=== PATIENT | male | born 1945 | race Caucasian/White ===

== ENCOUNTER 2023-04-12 10:33 | Inpatient (IN) | payer MEDICARE, SELFPAY ==
[2023-04-12] VITALS (13 sets, daily range): BP systolic 74–119; BP diastolic 49–67; PULSE 65–90; RESP 12–27; TEMP 36.2–37.2; O2SAT 88–97; BMI 30.9; BMI 29.9
--- NOTE | 2023-04-12 10:43 | ED.RN ---
PT HAS NUMEROUS BRUISED AREAS TO BACK AND SHOULDER THAT APPEAR TO BE AT DIFFERENT HEALING STAGES. BILAT ARMS, KNEES, FEET WITH DISCOLORING, REDNESS, SOME ABRASIONS.
--- NOTE | 2023-04-12 10:44 | EDS_ITS ---
HPI History of Present Illness Chief Complaint: Weakness [facility] Medical History (Updated 04/12/23 @ 14:[address] William Padilla, DO) CVA (cerebral vascular accident) Dementia High cholesterol Hypertension Kidney calculi Allergy/AdvReac Type Severity Reaction Status Date / Time No Known Allergies Allergy Verified 04/12/23 11:22 Surgical History (Updated 04/12/23 @ 14:54 by Lolis Meehan) History of heart artery stent Social History Smoking Status: Never smoker EXAM Physical Exam Const Vital Signs: 04/12/23 10:35 04/12/23 10:48 04/12/23 10:49 Temperature 99 F Temperature Source Temporal Pulse Rate 89 86 Respiratory Rate 12 26 H Respiratory Effort Normal Non-Labored Respiratory Pattern Normal Blood Pressure 74/49 L 90/50 L Blood Pressure Mean 57 63 Pulse Ox 92 93 Oxygen Delivery Method Room Air Room Air Oxygen Flow Rate (L/min) 04/12/23 11:00 04/12/23 11:24 04/12/23 11:55 Temperature Temperature Source Pulse Rate 90 73 69 Respiratory Rate 27 H 24 H 20 H Respiratory Effort Respiratory Pattern Blood Pressure 80/59 L 93/57 L 119/61 Blood Pressure Mean 66 69 80 Pulse Ox 94 88 92 Oxygen Delivery Method Room Air Room Air Nasal Cannula Oxygen Flow Rate (L/min) 2 04/12/23 12:07 04/12/23 12:51 Temperature Temperature Source Pulse Rate 66 69 Respiratory Rate 23 H 22 H Respiratory Effort Respiratory Pattern Blood Pressure 119/61 110/67 Blood Pressure Mean 80 81 Pulse Ox 95 92 Oxygen Delivery Method Nasal Cannula Oxygen Flow Rate (L/min) 2 MDM MDM MDM Narrative Medical decision making narrative: HISTORY OF PRESENT ILLNESS: 78-year-old female presents with diffuse weakness, flulike symptoms. States was seen at outside ED for similar symptoms. States patient been so weak that they have not been able to get up off the floor. Notes patient was covered in stool this morning. Patient also endorses severe back pain. Unable to provide a reliabe hx of how he fell to the ground or how long he was down. Patient denies any saddle anesthesia, urinary retention, bowel or bladder incontinence, lower extremity weakness, fever or IV drug use, no recent spinal manipulation or surgery, no recent urinary catheterization. REVIEW OF SYSTEMS: Pertinent positives: Weakness, hypotension, back pain Pertinent negatives: Cough, fever, chest pain, trouble urinating PHYSICAL EXAM: Nursing triage notes reviewed, Vital signs reviewed Constitutional: please see mdm HENT: Profoundly dry oral mucosa Eyes: Pupils equal round and reactive to light, Extraocular muscles intact Neck: No stridor, no JVD, full neck ROM Lungs: Clear to auscultation, No wheezing or rales. No increased work of breathing, no conversational dyspnea, no accessory muscle use, no nasal flaring. No respiratory distress noted Heart: Regular rate and rhythm, No murmurs, No rubs and No gallops, 2+ distal pulses (radial, femoral, posterior tibial) in all extremities Abdomen: Soft, there is no tenderness, rigidity, rebound or guarding, no obvious peritoneal signs, no palpable pulsatile abdominal masses, no auscultated abdominal bruit : No CVAT Extremities: No edema Back: Diffuse tenderness to palpation, some bruising over the left lateral lumbar region, no step-offs or deformities Neuro: Patient was alert, oriented x 3, moves all 4 extremities, and sensation all 4 extremities, no lateralizing findings Skin: No rash or lesions noted MEDICAL DECISION MAKING: Chief Complaint: Weakness, hypotension External records reviewed: No prior records noted in our system or in clinisync Factors affecting care: Unknown per the patient high cholesterol, hypertension states he is on a blood thinner although he cannot detail why Social determinants of health: Elderly History obtained from others: EMS Consults: Internal medicine [facility] Narrative: Patient was initially hypotensive otherwise hemodynamically stable, afebrile and nontoxic-appearing I considered the following differential diagnosis: Rhabdomyolysis, dehydration, acute kidney injury, sepsis, traumatic injury of the head, cervical spine, thoracic or lumbar spine, electrolyte disturbance, acute kidney injury, infectious or metabolic encephalopathy I obtained a broad lab and imaging workup to further elucidate etiology of patient's complaints. Hypotension was treated 1 L normal saline. He was given fentanyl for pain given its relative hemodynamic stability. ALL IMAGES (IF OBTAINED) HAVE BEEN PERSONALLY REVIEWED AND INTERPRETED BY MYSELF. EKG with normal sinus rhythm, left axis deviation, normal intervals, no STEMI CBC with no leukocytosis, there is mild thrombocytopenia but no significant anemia noted Chemistry panel shows evidence of significant dehydration which is consistent with his clinical exam, acute kidney injury, Initial lactate elevated concerning for endorgan hypoperfusion LFTs elevated alcohol use pattern with AST being approximately double ALT Troponin grossly elevated concerning for myocardial ischemia suspected type II demand ischemia given lack of chest pain, EKG changes Influenza A positive I have personally reviewed the patient's chest x-ray. Chest x-ray is unremarkable for pulmonary edema, pneumothorax, pneumonia or focal cardiopulmonary abnormality. CK elevated consistent rhabdomyolysis CT scan of the head, cervical spine, thoracic and lumbar spine are negative for acute traumatic injury The synthesis of the patient's history, physical exam, labs images suggest profound dehydration likely secondary to influenza A infection leading to weakness and fall resulting in and subsequent rhabdomyolysis and acute renal failure. Patient will need inpatient admission for further hydration, pain control and serial cardiac biomarkers. The patient and/or family, caregivers express understanding. The patient and/or family, caregivers agrees with the plan. Shared decision making: I will have a discussion with the patient and or visitors regarding risk/benefits of further testing or admission. They will be made aware of of the risk/benefits inherent in this decision they will be given the opportunity to voice understanding. Total critical care time today provided was at least 0 minutes. This excludes separately billable procedures. Critical care time (if documented) is secondary to the patient having high probability of clinically significant/life threatening deterioration in the patient's condition which required my urgent intervention. Impression: 1. Diffuse weakness 2. Hypotension 3. Dehydration 4. Thrombocytopenia 5. NSTEMI 6. Rhabdomyolysis 7. Acute renal failure Dispo: admit Lab Data Labs: Laboratory Results - last 24 hr 04/12/23 04/12/23 04/12/23 11:00 11:00 11:00 WBC 8.8 RBC 4.08 L Hgb 13.6 Hct 41.1 MCV 100.7 H MCH 33.3 H MCHC 33.1 RDW Std Deviation 51.8 H RDW Coeff of Ese 14.1 Plt Count 123 L MPV 9.8 Immature Gran % (Auto) 0.300 Neut % (Auto) 84.0 H Lymph % (Auto) 6.[address] [place] % (Auto) 9.4 Eos % (Auto) 0.0 Baso % (Auto) 0.1 Absolute Neuts (auto) 7.4 Absolute Lymphs (auto) 0.54 L Nucleated RBC % 0 Differential Comment COMMENT PT Cancelled 15.0 H INR Cancelled 1.2 APTT Cancelled Sodium Potassium Chloride Carbon Dioxide Anion Gap BUN Creatinine Estim Creat Clear Calc Est GFR (MDRD) Af Amer Est GFR (MDRD) Non-Af BUN/Creatinine Ratio Glucose Hemoglobin A1c Lactic Acid Calcium Total Bilirubin AST ALT Alkaline Phosphatase Total Creatine Kinase Troponin I High Sens Total Protein Albumin Globulin Albumin/Globulin Ratio Triglycerides Cholesterol LDL Cholesterol VLDL Cholesterol HDL Cholesterol Lipase 04/12/23 11:00 WBC RBC Hgb Hct MCV MCH MCHC RDW Std Deviation RDW Coeff of Ese Plt Count MPV Immature Gran % (Auto) Neut % (Auto) Lymph % (Auto) [place] % (Auto) Eos % (Auto) Baso % (Auto) Absolute Neuts (auto) Absolute Lymphs (auto) Nucleated RBC % Differential Comment PT INR APTT 31.7 Sodium 141 Potassium 4.0 Chloride 112 H Carbon Dioxide 18.0 L Anion Gap 11 BUN 69 H Creatinine 3.27 H Estim Creat Clear Calc 20.51 Est GFR (MDRD) Af Amer 24 L Est GFR (MDRD) Non-Af 20 L BUN/Creatinine Ratio 21.1 H Glucose 93 Hemoglobin A1c 5.6 Lactic Acid 2.3 H* Calcium 8.7 Total Bilirubin 0.70 AST 576 H ALT 162 H Alkaline Phosphatase 85 Total Creatine Kinase 39793 H Troponin I High Sens 3604 H* Total Protein 7.3 Albumin 3.1 L Globulin 4.2 Albumin/Globulin Ratio 0.7 L Triglycerides 100 Cholesterol 103 LDL Cholesterol 29 VLDL Cholesterol 20 HDL Cholesterol 54 Lipase 42 Radiography Diagnostic Testing: Clinical Impression(s) from Imaging Studies Brain CT 04/12/23 11:12 IMPRESSION: Chronic involutional changes of the brain. 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 Pansinusitis. Electronically Signed: Hang Wood MD at 12:24 EST , Cervical Spine CT 04/12/23 11:12 IMPRESSION: Multilevel degenerative changes, as described above. Electronically Signed: Hang Wood MD at 12:29 EST , Lumbar Spine CT 04/12/23 11:12 IMPRESSION: Multilevel degenerative changes, as described above. Electronically Signed: Hang Wood MD at 12:23 EST , Thoracic Spine CT 04/12/23 11:12 IMPRESSION: Multilevel degenerative changes. No vertebral fracture is seen. Findings suggestive of bibasilar atelectasis. Electronically Signed: Hang Wood MD at 12:25 EST , Chest X-Ray 04/12/23 12:10 IMPRESSION: No acute abnormality is seen. Electronically Signed: Hang Wood MD at 12:30 EST , Discharge Plan Disposition Disposition: Acute Care Hospital [facility] Discharge Date/Time: 04/12/23 13:32
--- NOTE | 2023-04-12 11:12 | CT_ITS ---
STUDY: CT BRAIN WITHOUT CONTRAST REASON FOR EXAM: Male, 78 years old. Fall, head trauma RADIATION DOSAGE (If Supplied By Facility): CTDIvol = ( 44.99 ) mGy, DLP = ( 815.79 ) mGycm TECHNIQUE: Transaxial CT imaging of the brain was performed without administration of intravenous contrast material. Individualized dose optimization techniques were used for this CT. COMPARISON: No relevant priors. FINDINGS: Normal soft tissue structures. Normal calvarium. There is mild cerebral atrophy with widening of the extra-axial spaces and ventricular dilatation. There are areas of decreased attenuation within the white matter tracts of the supratentorial brain, consistent with microvascular disease changes. Small bilateral lacunar infarcts in the basal ganglion. Normal brainstem. Normal cerebellum. There is no intracranial hemorrhage. There are no findings of an acute ischemic infarction. Atherosclerotic calcification of the vertebral arteries and cavernous portions of the internal carotid arteries bilaterally. There is evidence of pansinusitis. CT/Brain/Head without Contrast IMPRESSION: Chronic involutional changes of the brain. 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 Pansinusitis. Electronically Signed: Hang Wood MD at 12:24 EST ,
--- NOTE | 2023-04-12 11:12 | CT_ITS ---
STUDY: CT THORACIC SPINE WITHOUT CONTRAST REASON FOR EXAM: Male, 78 years old. Fall, back pain RADIATION DOSAGE (If Supplied By Facility): CTDIvol = ( 22.94 ) mGy, DLP = ( 849.95 ) mGycm TECHNIQUE: The patient was scanned in a multi detector CT scanner. High resolution imaging was performed. Images were obtained from T1 to L1 vertebral level. Sagittal and coronal images were reconstructed. Individualized dose optimization techniques were used for this CT. COMPARISON: None. FINDINGS: Normal visualized cervical spine. Normal kyphosis of the thoracic spine. There is no substantial scoliosis. There is multilevel endplate spondylosis of the thoracic spine. There is multilevel degenerative disc disease with loss of the disc space heights. The mineralization of the thoracic vertebrae. Calcified bilateral hilar lymph nodes. Increased markings at the lung bases suggestive of bibasilar atelectasis. CT/Spine Thoracic without Contras IMPRESSION: Multilevel degenerative changes. No vertebral fracture is seen. Findings suggestive of bibasilar atelectasis. Electronically Signed: Hang Wood MD at 12:25 EST ,
--- NOTE | 2023-04-12 11:12 | CT_ITS ---
STUDY: CT LUMBAR SPINE WITHOUT CONTRAST REASON FOR EXAM: Male, 78 years old. Fall, back pain RADIATION DOSAGE (If Supplied By Facility): CTDIvol = ( 29.24 ) mGy, DLP = ( 798.59 ) mGycm TECHNIQUE: The patient was scanned in a multi detector CT scanner. High resolution transaxial imaging was performed. Images were obtained from L1 to S1 vertebral level. Sagittal and coronal images were reconstructed. Individualized dose optimization techniques were used for this CT. COMPARISON: None FINDINGS: Normal lumbar lordosis. There is no substantial scoliosis. Normal vertebrae of the lumbar spine. L1-2: Mild disc space narrowing. Spondylosis. Moderate degree of bilateral neural foraminal stenosis due to hypertrophy of the facet joints and mild diffuse bilateral disc bulge. L2-3: Moderate degree of disc space narrowing. Spondylosis. Bilateral neural foraminal stenosis. L3-4: Moderate degree of disc space narrowing. Bilateral neural foraminal stenosis worse on the left side. L4-5: Marked degree of disc space narrowing and degeneration. Moderate degree of bilateral neural foraminal stenosis. L5-S1: Marked degree of disc space narrowing and disc degeneration. Atherosclerotic calcification of the abdominal aorta. CT/Spine Lumbar without Contrast IMPRESSION: Multilevel degenerative changes, as described above. Electronically Signed: Hang Wood MD at 12:23 EST ,
--- NOTE | 2023-04-12 11:12 | CT_ITS ---
STUDY: CT CERVICAL SPINE WITHOUT CONTRAST REASON FOR EXAM: Male, 78 years old. Fall, neck trauma RADIATION DOSAGE (If Supplied By Facility): CTDIvol = ( 26.75 ) mGy, DLP = ( 1179.33 ) mGycm TECHNIQUE: High resolution transaxial imaging was performed without contrast material. Sagittal and coronal images were reconstructed. Individualized dose optimization techniques were used for this CT. COMPARISON: None FINDINGS: Normal craniovertebral junction. There are degenerative changes of the anterior atlantoaxial articulation. Normal odontoid process. There is straightening of the normal cervical lordosis. Normal vertebral bodies and posterior osseous elements. C2-3: Moderate degree of disc space narrowing. Uncovertebral arthrosis. Mild degree of bilateral neural foraminal stenosis slightly worse on the right. Facet joint osteoarthritis and hypertrophy worse on the right side. C3-4: Facet joint osteoarthritis and hypertrophy. Mild degree of bilateral neural foraminal stenosis worse on the left side. C4-5: Normal endplates. Normal disc height and morphology. Normal central canal and intervertebral neuroforamina. C5-6: There is fusion of the C5-C6 vertebrae. C6-7: Fusion of the C6-C7 vertebrae. The bilateral neural foraminal stenosis moderate degree worse on the right side. C7-T1: Normal endplates. Normal disc height and morphology. Normal central canal and intervertebral neuroforamina. Atherosclerotic plaque formation of the carotid arteries bilaterally. CT/Spine Cervical without Contras IMPRESSION: Multilevel degenerative changes, as described above. Electronically Signed: Hang Wood MD at 12:29 EST ,
[2023-04-12] MEDS: fentaNYL 100 MCG/2 ML Ampul 25 MCG IV (11:23)
[2023-04-12] MEDS: 0.9% Normal Saline (1000mL) 1,000 ML 1000 ML IV (11:23)
[2023-04-12 11:33] LABS: Absolute Lymphocyte Count 0.54 X10^3/uL (0.83-4.51); Absolute Neutrophil Count 7.4 X10^3/uL (2.0-7.7); Basophil# 0.01 X10^3/uL; Basophil% 0.1 % (0-1); Hematocrit 41.1 % (40-54); Hemoglobin 13.6 g/dL (13.0-16.5); Lymphocyte # 0.54 X10^3/ul (0.83-4.51); Lymphocyte % 6.2 % (19-41); Mean Corp Hgb Conc 33.1 g/dL (32-36); Mean Corpuscular Hgb 33.3 pg (27.0-32.0); Mean Corpuscular Volume 100.7 fL (80-94); Mean Platelet Vol. 9.8 fl (6.2-12.0); Monocyte# 0.82 X10^3/uL; Monocyte% 9.4 % (0-10); NRBC Flagged by Analyzer 0 % (0-5); Neutrophil # 7.37 X10^3/uL (2.7-7.7); POSITIVE DIFFERENTIAL YES; POSITIVE MORPHOLOGY YES; Platelet Count 123 K/mm3 (150-450); RBC Distribution Width CV 14.1 % (11.6-14.6); RBC Distribution Width SD 51.8 fl (35.1-43.9); Red Blood Count 4.08 M/mm3 (4.6-6.2); White Blood Count 8.8 K/mm3 (4.4-11.0)
[2023-04-12 11:41] LABS: Differential Indicated SCAN CRITERIA MET
[2023-04-12 11:51] LABS: ALB/GLOB Ratio 0.7 RATIO (0.9-2.4); AST(SGOT) 576 U/L (15-37); Alanine Aminotransfer ALT/SGPT 162 U/L (16-61); Albumin, Serum 3.1 g/dL (3.2-5.0); Alkaline Phosphatase 85 U/L (45-117); Anion Gap 11 (5-15); BUN 69 mg/dL (7-18); BUN/Creat Ratio 21.1 RATIO (10-20); Calcium,Total 8.7 mg/dL (8.5-10.1); Chloride 112 mmol/L (98-107); Creatinine, Serum 3.27 mg/dL (0.70-1.30); EST Glomerular Filtration Rate 20 mL/min (>60); Est Glom Filt Rate - Afr Amer 24 mL/min (>60); Estimated Creatinine Clearance 20.51 ml/min; Globulin 4.2 g/dL (2.2-4.2); Glucose 93 mg/dL (74-106); Lactic Acid 2.3 mmol/L (0.4-1.9); Lipase 42 U/L (13-75); Protein, Total 7.3 g/dL (6.4-8.2); Sodium Level 141 mmol/L (136-145); Troponin-I HS 3604 pg/mL (3.0-78.0)
--- NOTE | 2023-04-12 12:10 | RAD_ITS ---
STUDY: X-RAY CHEST REASON FOR EXAM: Male, 78 years old. Weakness TECHNIQUE: Single AP portable view of the chest. COMPARISON: None. FINDINGS: EKG electrodes are seen. Elevation of the right hemidiaphragm. Calcified lung granulomas. There is no demonstrated pleural abnormality. Normal size heart. Normal mediastinum and car[place]. Normal visualized pulmonary arteries. Normal visualized aortic arch and descending thoracic aorta. There are diffuse degenerative changes of the visualized thoracic spine. There is degenerative osteoarthritis of the bilateral shoulders. There is no demonstrated abnormality of the visualized soft tissue structures of the upper abdomen. RAD/Chest 1 View (Portable) IMPRESSION: No acute abnormality is seen. Electronically Signed: Hang Wood MD at 12:30 EST ,
[2023-04-12 12:29] LABS: CPK Total, Creatine Kinase 28395 U/L (39-308)
--- NOTE | 2023-04-12 12:43 | PCM.HP.STD ---
HPI - General General Date of Admission: 04/12/23 Date of Service: 04/12/23 Chief Complaint: weakness, mechanical fall HPI Narrative CLAUDIO WELLER, is a 78 M with a PMH as outlined who presents via the ED on 04/12/2023 with a complaint of weakness. He was found on the ground at home. He fell at home last night, and was on the floor overnight. He said his found him on the floor this morning and called EMS. He doesnt remember hitting his head, and denies any nausea, vomiting, dizziness, lightheadedness, chest pain or any other symptoms. Review of systems is otherwise negative. Vitals in the ED were BP of 119/61, VA of 66, RR of 23 nad he was saturating at 95% on 2L of oxygen. CBC showed Hb of 12.6, wbc of 8.8, platelets of 123. CBC showed sodium of 41, bicarb of 18, CR of 3.27 and lactic acid of 2.3. Initial troponin was 3604, and CPK was 87465. Respiratory panel was positive for flu A. CT of the cervical, thoracic and lumbar spine showed multiple level degenerative changes. He is being admitted to be managed for DIAN in the setting of rhabdomyolysis, debility and non-STEMI. [facility] Medical History (Updated 04/12/23 @ 16:[address] Jack Fuller MD) CVA (cerebral vascular accident) Dementia High cholesterol Hypertension Kidney calculi Home Medications albuterol sulfate 90 mcg/actuation aerosol inhaler 2 puff inhalation Q4H PRN wheezing 04/12/23 [History Last Taken Unknown] allopurinol 300 mg tablet 300 mg PO DAILY gout 04/12/23 [History Last Taken 04/11/23] aspirin 81 mg capsule 81 mg PO DAILY heart health 04/12/23 [History Last Taken 04/11/23] atorvastatin 20 mg tablet 20 mg PO DAILY cholesterol 04/12/23 [History Last Taken 04/11/23] benzonatate 100 mg capsule 100 mg PO TID PRN PRN cough 04/12/23 [History Last Taken Unknown] cetirizine 10 mg tablet 10 mg PO DAILY PRN allergy symptoms 04/12/23 [History Last Taken Unknown] donepezil 10 mg tablet 10 mg PO QHS dementia 04/12/23 [History Last Taken 04/11/23] losartan 50 mg-hydrochlorothiazide 12.5 mg tablet 1 tab PO DAILY blood pressure 04/12/23 [History Last Taken 04/11/23] memantine 5 mg tablet 5 mg PO BID dementia 04/12/23 [History Last Taken 04/11/23] methylprednisolone 4 mg tablets in a dose pack 4 mg PO steriod 04/12/23 [History Last Taken Unknown] metoprolol tartrate 25 mg tablet 25 mg PO BID blood pressure 04/12/23 [History Last Taken 04/11/23] tamsulosin 0.4 mg capsule 0.4 mg PO DAILY urination 04/12/23 [History Last Taken 04/11/23] timolol maleate 0.5 % eye drops 1 drp ophthalmic (eye) BID eye health 04/12/23 [History Last Taken 04/11/23] Allergy/AdvReac Type Severity Reaction Status Date / Time No Known Allergies Allergy Verified 04/12/23 11:22 Family History unable to obtain Surgical History (Updated 04/12/23 @ 16:[address] Jack Fuller MD) History of heart artery stent Surgical History unable to obtain Social History Smoking Status: Never smoker ROS Constitutional Constitutional: Reports fatigue, malaise and weakness; Denies anorexia, chills or fever(s) Eyes Eyes: Denies change in vision ENT HEENT: Denies dysphagia Cardiovascular Cardiovascular: Denies chest pain, edema, orthopnea, palpitations, paroxysmal nocturnal dyspnea or syncope Respiratory/Chest Respiratory/Chest: Denies cough, shortness of breath at rest, shortness of breath with exertion or wheezing Gastrointestinal Gastrointestinal: Denies abdominal pain, diarrhea, dyspepsia, nausea or vomiting Genitourinary Genitourinary: Denies dysuria Musculoskeletal Musculoskeletal: Reports muscle weakness; Denies back pain, extremity pain or joint pain Integumentary Integumentary: Denies dry skin Neurologic Neurologic: Reports confusion and weakness; Denies dizziness, focal weakness, headache(s), numbness or seizures Psychiatric Psychiatric: Denies anxiety Vital Signs Vital Signs Vital Signs: 04/12/23 10:35 04/12/23 10:48 04/12/23 10:49 Temperature 99 F Temperature Source Temporal Pulse Rate 89 86 Respiratory Rate 12 26 H Respiratory Effort Normal Non-Labored Respiratory Pattern Normal Blood Pressure 74/49 L 90/50 L Blood Pressure Mean 57 63 Pulse Ox 92 93 Oxygen Delivery Method Room Air Room Air Oxygen Flow Rate (L/min) 04/12/23 11:00 04/12/23 11:24 04/12/23 11:55 Temperature Temperature Source Pulse Rate 90 73 69 Respiratory Rate 27 H 24 H 20 H Respiratory Effort Respiratory Pattern Blood Pressure 80/59 L 93/57 L 119/61 Blood Pressure Mean 66 69 80 Pulse Ox 94 88 92 Oxygen Delivery Method Room Air Room Air Nasal Cannula Oxygen Flow Rate (L/min) 2 04/12/23 12:07 Temperature Temperature Source Pulse Rate 66 Respiratory Rate 23 H Respiratory Effort Respiratory Pattern Blood Pressure 119/61 Blood Pressure Mean 80 Pulse Ox 95 Oxygen Delivery Method Nasal Cannula Oxygen Flow Rate (L/min) 2 Weight Weight: 203 lb 0.732 oz Body Mass Index (BMI) 30.9 Physical Exam Const alert and oriented x3 Constitutional Narrative: frail, weak General Appearance: cooperative HEENT normocephalic and head/scalp atraumatic Mouth: dry mucous membranes Eyes EOMs intact bilaterally Neck no lymphadenopathy and supple Lymph Lymphatic: no lymphadenopathy noted and no lymphedema noted Resp normal respiratory effort, normal air movement and clear to auscultation bilaterally Cardio regular rate, regular rhythm, S1 normal heart sound, S2 normal heart sound and no murmurs GI normal to inspection, nondistended, normoactive bowel sounds, soft to palpation, non-tender and non-distended Extremity normal capillary refill, no clubbing, cyanosis or edema and no calf tenderness General Extremity: no tenderness to palpation of joints or extremities Skin General Skin Exam: no breakdown Neuro CN's II-XII intact bilaterally, no focal motor deficits, no sensory deficits noted and deep tendon reflexes 2+ bilaterally Motor Exam: strength 5/5 throughout and general weakness Psych thought process normal and cooperative Appearance: appropriate Results Lab / Micro Data 04/12/23 11:00 04/12/23 11:00 Labs: Laboratory Results - last 24 hr 04/12/23 11:00: WBC 8.8, RBC 4.08 L, Hgb 13.6, Hct 41.1, MCV 100.7 H, MCH 33.3 H, MCHC 33.1, RDW Std Deviation 51.8 H, RDW Coeff of Ese 14.1, Plt Count 123 L, MPV 9.8, Immature Gran % (Auto) 0.300, Neut % (Auto) 84.0 H, Lymph % (Auto) 6.2 L, [place] % (Auto) 9.4, Eos % (Auto) 0.0, Baso % (Auto) 0.1, Absolute Neuts (auto) 7.4, Absolute Lymphs (auto) 0.54 L, Nucleated RBC % 0, Differential Comment COMMENT, Sodium 141, Potassium 4.0, Chloride 112 H, Carbon Dioxide 18.0 L, Anion Gap 11, BUN 69 H, Creatinine 3.27 H, Estim Creat Clear Calc 20.51, Est GFR (MDRD) Af Amer 24 L, Est GFR (MDRD) Non-Af 20 L, BUN/Creatinine Ratio 21.1 H, Glucose 93, Lactic Acid 2.3 H*, Calcium 8.7, Total Bilirubin 0.70, AST 576 H, ALT 162 H, Alkaline Phosphatase 85, Total Creatine Kinase 31048 H, Troponin I High Sens 3604 H*, Total Protein 7.3, Albumin 3.1 L, Globulin 4.2, Albumin/Globulin Ratio 0.7 L, Lipase 42 Micro: Microbiology 04/12/23 11:18 Mucosa - Nasopharyngeal SARS-CoV-2, Influenza & RSV (PCR) - Final Influenzae A Imagaing Radiology Impression Brain CT 04/12/23 11:12 IMPRESSION: Chronic involutional changes of the brain. 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 Pansinusitis. Electronically Signed: Hang Wood MD at 12:24 EST , Cervical Spine CT 04/12/23 11:12 IMPRESSION: Multilevel degenerative changes, as described above. Electronically Signed: Hang Wood MD at 12:29 EST , Lumbar Spine CT 04/12/23 11:12 IMPRESSION: Multilevel degenerative changes, as described above. Electronically Signed: Hang Wood MD at 12:23 EST , Thoracic Spine CT 04/12/23 11:12 IMPRESSION: Multilevel degenerative changes. No vertebral fracture is seen. Findings suggestive of bibasilar atelectasis. Electronically Signed: Hang Wood MD at 12:25 EST , Chest X-Ray 04/12/23 12:10 IMPRESSION: No acute abnormality is seen. Electronically Signed: Hang Wood MD at 12:30 EST , Assessment & Plan Assessment/Plan (1) Cardiac enzymes elevated: (2) Rhabdomyolysis: QUALIFIERS: Rhabdomyolysis type: traumatic Encounter type: initial encounter Qualified Code(s): T79.6XXA - Traumatic ischemia of muscle, initial encounter PLAN: Plan #Rhabdomyolysis due to mechanical fall Patient states he fell on the floor. He does not member whether he passed out or not but knows he was on the floor at least overnight. CPK is more than 28,000. Creatinine is also elevated. Hydrate aggressively with IV fluid normal saline at 150 cc/h. Trend CPK. PT OT on board. Fall precautions. #Non-STEMI Likely a type II non-STEMI in light of DIAN and patient's mechanical fall. Initial troponin was 3604 and trended down to 3095. EKG showed no acute ST changes. 2D echo ordered. Will consult cardiology though this is likely a type II non-STEMI. P.o. aspirin 81 mg daily. Check lipid panel. #DIAN Creatinine is 3.27. Baseline creatinine not known. Likely prerenal due to patient being on the floor for about 12 hours and also CPK being elevated in setting of rhabdomyolysis. Hydrate aggressively with IV fluids. Trend creatinine. If creatinine does not improve, consult nephrology. #History of CAD s/p CABG: On aspirin and statin. #Dementia: On donepezil #Hypertension: Hold losartan and hydrochlorothiazide on account of DIAN and rhabdomyolysis. IV hydralazine as needed. Also on metoprolol. #BPH: On Flomax DVT prophylaxis: Heparin CODE STATUS: Full code Patient counseled extensively about different types of CODE STATUS including full code, DNR CCA and DNR CCA. Patient elects to be full code. Total [id number] time 17 minutes. Charges/Coding Visit Charges Inpatient E&M: 66359 Init Hosp L3 Procedures Hospitalists Procedures: 19218 Advncd Care Plan 30 Min
[2023-04-12] MEDS: Lactated Ringers 1,000 ML 999 ML IV (13:00)
[2023-04-12] MEDS: Aspirin 81 MG TAB.CHEW PO (13:02)
--- NOTE | 2023-04-12 13:29 | CM.ED ---
Social Work SW introduced self and role to patient. 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 SW discussed advance directives with patient and patient does not know if he has completed these documents. SW provided a rack card and patient said he would have his review. Pt reports not feeling well. Pt reports he fell and spent the night on the floor. Pt reports his had been sick and at the ED. Pt does report other falls recently but without injury, squad had to assist with getting patient up on a previous fall. Pt reports he has a can and walker but does not use them. Pt reports he is able to provide for his needs and is independent. Pt reports home is all on one level besides the basement. Pt falling asleep and would like to rest. Pt does not feel he will need assistance at d/c currently. SW to follow for patient needs. Leah Dumont [employer] FILTER OPERATOR, [employer] SAL[employer] EXECUTIVE
--- NOTE | 2023-04-12 13:39 | ECHOCS_ITS ---
Reason For Study: Dyspnea/SOB Procedure This was a 2D Doppler, Color Flow transthoracic echocardiogram. Technically difficult study, patient unable to stay on left side due to severe back pain and body aches. Contrast injection was performed. Exam performed portable in patient room. Left Ventricle Normal LV size. The estimated ejection fraction is 70 %. Unable to assess diastolic dysfunction. No regional wall motion abnormalities noted. Right Ventricle Normal RV size. Normal systolic function. Atria Normal left atrium. Normal right atrium. No doppler evidence for ASD. Mitral Valve There is moderate mitral annular calcification. There is no mitral valve stenosis. No mitral valve insufficiency. Tricuspid Valve There is no tricuspid stenosis. Trivial eccentric tricuspid valve insufficiency. Unable to estimate RV systolic pressure due to insufficient tricuspid regurgitant envelope. Aortic Valve Trisinus/trileaflet aortic valve. There is no aortic stenosis. No aortic valve insufficiency. Pulmonic Valve There is no pulmonic valvular stenosis. No pulmonic valve insufficiency. Great Vessels Normal aortic root. Pericardium/Pleural No pericardial effusion. Medication Diluted definity 2ml given slow IV push to enhance endocardial definition. MMode/2D Measurements & Calculations LVIDd: 4.2 cm IVSd: 1.2 cm Ao root diam: 4.1 cm LVIDs: 2.8 cm LVPWd: 1.2 cm LA dimension: 3.8 cm FS: 32.9 % Time Measurements MV dec time: 0.32 sec Doppler Measurements & Calculations MV E max ron: 40.0 cm/sec Lat Peak E' Ron: 7.9 cm/sec Med Peak E' Ron: 6.6 cm/sec MV A max ron: 67.5 cm/sec E/E' lat: 5.0 E/E' med: 6.1 MV E/A: 0.59 MV V2 max: 81.6 cm/sec MV P1/2t max ron: 46.9 cm/sec Ao V2 max: 113.5 cm/sec MV max P.7 mmHg MV P1/2t: 110.3 msec Ao max P.2 mmHg MV V2 mean: 39.0 cm/sec Ao V2 mean: 80.1 cm/sec MV mean P.71 mmHg MV dec slope: 124.6 cm/sec2 Ao mean P.8 mmHg MV V2 VTI: 20.6 cm MVA(P1/2t): 2.0 cm2 Ao V2 VTI: 18.9 cm AV (velocity ratio): 0.88 LV V1 max: 93.7 cm/sec PA V2 max: 73.7 cm/sec TR max ron: 205.7 cm/sec LV V1 max P.5 mmHg PA V2 mean: 55.2 cm/sec TR max P.9 mmHg LV V1 mean P.6 mmHg LV V1 mean: 56.4 cm/sec LV V1 VTI: 16.7 cm ECHO/Echo Complete W/ Contrast Interpretation Summary The estimated ejection fraction is 70 %. Unable to assess diastolic dysfunction. Ordering Physician: Tesha Layne Performed By: Juan M De La Garza RCS
--- OUTSIDE RECORDS SUMMARY | 2023-04-12 13:40 | XMS RPT_ITS | CCD ---
Author Name Unknown Address [address] [facility] [address] [place] [address] Organization [facility] Care Team Providers Care Invasive Physician Name Role Phone Jarrell Gray Unavailable Josee Ramos Primary Care Provider Jarrell Gray MD Unavailable Unavailable Campolo DO, Ramos Primary Care Provider Jim Khan MDa A Unavailable Campolo DO, Ramos Primary Care Provider July DO, Josee Primary Care Provider Bill LEMOS Rosa A Unavailable [phone] July DO, Yesenia Primary Care Provider CAMPOLO, RAMOS Referring Unavailable CAMPOLO, RAMOS Primary Care Unavailable GINNY HYLTON Attending Unavailable CAMPOLO, RAMOS Referring Unavailable YONY ALMARAZ Attending Unavailable CAMPOLO, RAMOS Primary Care Unavailable MAY, JOSEE Primary Care Unavailable FOOR, DARIN Referring Unavailable FOOR, DARIN Attending Unavailable FOOR, DARIN Admitting Unavailable CAMPOLO, RAMOS Primary Care Unavailable YOJANA BROOKS Attending Unavailable CAMPOLO, RAMOS Primary Care Unavailable FOOR, DARIN Attending Unavailable FOOR, DARIN Admitting Unavailable JULY, JOSEE Primary Care Unavailable ELEANOR HINSON Attending Unavailable JULY, JOSEE Referring Unavailable CAMPOLO, RAMOS Primary Care Unavailable KATHERIN NOBLE Attending Unavailable MAY, JOSEE Primary Care Unavailable MAY, JOSEE Referring Unavailable MAY, JOSEE Attending Unavailable CAMPOLO, RAMOS Referring Unavailable CAMPOLO, RAMOS Primary Care Unavailable ELEANOR HINSON Attending Unavailable DARION ANDREW Attending Unavailable JULY, YESENIA Referring Unavailable JULY, YESENIA Primary Care Unavailable DARION ANDREW Referring Unavailable JULY, YESENIA Primary Care Unavailable DARION ANDREW Attending Unavailable JULY, YESENAI Primary Care Unavailable ANGELA ELLIOTT MD Primary Care Physician ANGELA ELLIOTT MD Attending Unavailable ANGELA ELLIOTT MD Primary Care Unavailable Medications Current Medications Medication Drug Class(es) Dates Sig (Normalized) Sig (Original) 8 hr acetaminophen 650 mg extended release oral tablet (18 sources) take 1 tablet by mouth three times daily as needed acetaminophen (TYLENOL) 650 MG CR tablet Take 650 mg by mouth 3 times daily as needed. 0 Active allopurinol 300 mg oral tablet (20 sources) Xanthine Oxidase Inhibitor Start: 01-05-2023 allopurinol 300 mg oral tablet Dose : 300 mg = 1 tab(s), Oral, qDay, # 90 tab(s), 0 Refill(s) Start Date: 01/05/23 Status: Ordered Completed/Discontinued Medications Medication Drug Class(es) Dates Sig (Normalized) Sig (Original) LOCM iohexol (OMNIPAQUE 300 MG/ML) injection 100 mL (1 source) Start: 03-21-2019 End: 03-21-2019 LOCM iohexol (OMNIPAQUE 300 MG/ML) injection 100 mL Problems Active Problems Problem Classification Problem Date Documented Da te Episodic/Chronic Chronic kidney disease (2 sources) Chronic kidney disease stage 1; Translations: [Chronic kidney disease, stage 1] Onset: 05-06-2009 04-15-2021 Chronic Chronic ulcer of skin (1 source) Chronic ulcer of lower extremity; Translations: [Non-pressure chronic ulcer of other part of right lower leg with fat layer exposed] Chronic Coronary atherosclerosis and other heart disease (12 sources) Coronary arteriosclerosis; Translations: [Atherosclerotic heart disease of [place] coronary artery without angina pectoris] Onset: 06-06-2010 10-20-2019 Chronic Disorders of lipid metabolism (15 sources) Mixed hyperlipidemia; Translations: [Mixed hyperlipidemia] Onset: 08-07-2012 03-18-2019 Chronic Essential hypertension (18 sources) Essential hypertension; Translations: [Essential (primary) hypertension] Onset: 08-20-2007 03-18-2019 Chronic Genitourinary symptoms and ill-defined conditions (1 source) Urinary incontinence 02-15-2023 Chronic Genitourinary symptoms and ill-defined conditions (5 sources) Microscopic hematuria; Translations: [Abnormal urinalysis] Episodic Glaucoma (17 sources) Primary open angle glaucoma; Translations: [Primary open-angle glaucoma, unspecified eye, stage unspecified] Onset: 02-17-2012 03-18-2019 Chronic Gout and other crystal arthropathies (14 sources) 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; Translations: [Gouty arthritis of multiple sites] Onset: 08-20-2007 10-20-2019 Chronic Hyperplasia of prostate (20 sources) Benign prostatic hyperplasia; Translations: [Weak urinary stream due to benign prostatic hypertrophy] Onset: 02-13-2018 02-13-2018 Chronic Osteoarthritis (4 sources) Osteoarthritis of knee; Translations: [Osteoarthritis of knee, unspecified] Onset: 03-24-2008 04-15-2021 Chronic Other connective tissue disease (6 sources) History of total knee arthroplasty; Translations: [History of total bilateral knee replacement] Onset: 03-18-2019 03-18-2019 Chronic Other connective tissue disease (4 sources) History of bilateral total knee replacement; Translations: [Presence of artificial knee joint, bilateral] Onset: 03-18-2019 03-18-2019 Chronic Other ear and sense organ disorders (1 source) Impacted cerumen 02-15-2023 Episodic Other hereditary and degenerative nervous system conditions (1 source) Mild cognitive disorder ; Translations: [Mild cognitive impairment, so stated] Chronic Other hereditary and degenerative nervous system conditions (1 source) Mild cognitive impairment, so stated; Translations: [Mild cognitive impairment of uncertain or unknown etiology] Onset: 01-12-2022 Chronic Other inflammatory condition of skin (2 sources) Rosacea; Translations: [Rosacea, unspecified] Onset: 04-23-2006 04-15-2021 Chronic Other lower respiratory disease (2 sources) Post-inflammatory pulmonary fibrosis; Translations: [Pulmonary fibrosis, unspecified] Onset: 02-28-2013 04-15-2021 Chronic Other nutritional; endocrine; and metabolic disorders (1 source) Hyperuricemia 01-05-2023 Episodic Other nutritional; endocrine; and metabolic disorders (2 sources) Hyperuricemia without signs of inflammatory arthritis and tophaceous disease; Translations: [Hyperuricemia without signs of inflammatory arthritis and tophaceous disease] Onset: 02-28-2023 Episodic Other upper respiratory disease (12 sources) Allergic rhinitis due to pollen; Translations: [Allergic rhinitis due to pollen] Onset: 03-18-2019 03-18-2019 Chronic Other upper respiratory disease (1 source) Allergic rhinitis 01-05-2023 Chronic Other upper respiratory disease (2 sources) Allergic rhinitis, unspecified; Translations: [Allergic rhinitis, unspecified] Onset: 02-28-2023 Chronic Other upper respiratory infections (4 sources) Chronic ethmoidal sinusitis; Translations: [Chronic ethmoidal sinusitis] Onset: 03-07-2013 04-15-2021 Chronic Peripheral and visceral atherosclerosis (1 source) Peripheral vascular disease, unspecified; Translations: [Peripheral vascular disease, unspecified] Chronic Residual codes; unclassified (8 sources) Obstructive sleep apnea syndrome; Translations: [Obstructive sleep apnea (adult) (pediatric)] Onset: 09-03-2019 09-03-2019 Chronic Residual codes; unclassified (1 source) Poor short-term memory 01-05-2023 Episodic Residual codes; unclassified (2 sources) Other amnesia; Translations: [Other amnesia] Onset: 02-28-2023 Episodic Unclassified (2 sources) Patient encounter status; Translations: [Screening for endocrine, metabolic and immunity disorder] Unclassified (2 sources) History of bilateral total knee replacement; Translations: [History of total bilateral knee replacement] Onset: 03-18-2019 03-18-2019 Unclassified (1 source) Encounter for screening for COVID-19; Translations: [Encounter for screening for COVID-19] Onset: 09-30-2021 Viral infection (1 source) COVID-19; Translations: [COVID-19] Onset: 02-09-2021 Past or Other Problems Problem Classification Problem Date Documented Date Episodic/Chronic Allergic reactions (2 sources) Skin changes due to chronic exposure to non-ionizing radiation; Translations: [Other skin changes due to chronic exposure to nonionizing radiation] Onset: 08-17-2005 04-15-2021 Episodic Calculus of urinary tract (18 sources) Kidney stone; Translations: [Urinary bladder stone] Onset: 08-20-2007 03-18-2019 Episodic Deficiency and other anemia (2 sources) Macrocytic anemia; Translations: [Nutritional anemia, unspecified] Onset: 08-07-2012 04-15-2021 Episodic Gout and other crystal arthropathies (8 sources) Secondary gout; 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, multiple sites] Onset: 03-18-2019 03-18-2019 Episodic Immunizations and screening for infectious disease (1 source) Contact with and (suspected) exposure to other viral communicable diseases; Translations: [Contact with and (suspected) exposure to other viral communicable diseases] Onset: 02-05-2021 Episodic Other aftercare (2 sources) Patient encounter status; Translations: [Other detention (current) drug therapy] Onset: 02-28-2013 04-15-2021 Episodic Other and unspecified benign neoplasm (19 sources) History of polyp of colon; Translations: [Personal history of colonic polyps] Onset: 01-22-2019 01-22-2019 Episodic Other and unspecified benign neoplasm (2 sources) Hemangioma; Translations: [Hemangioma unspecified site] Onset: 09-24-2008 04-15-2021 Episodic Other lower respiratory disease (2 sources) Chronic cough; Translations: [Chronic cough] Onset: 04-30-2013 04-15-2021 Episodic Other skin disorders (14 sources) Actinic keratosis; Translations: [Actinic keratosis] Onset: 09-13-2007 03-18-2019 Episodic Other skin disorders (2 sources) Disorder of pigmentation; Translations: [Other specified disorders of pigmentation] Onset: 08-17-2005 04-15-2021 Episodic Residual codes; unclassified (12 sources) History of colonoscopy; Translations: [Other specified postprocedural states] Onset: 03-18-2019 03-18-2019 Episodic Residual codes; unclassified (2 sources) Memory impairment; Translations: [Other amnesia] Onset: 03-05-2018 04-15-2021 Episodic Results Test Name Value Interpretation Reference Range Facil ity Vital Signs Date Time Vital Sign Value Performing Clinician Facility 04-19-2021 13:32-0500 Body height 172.7 cm Rosa Khan MD Work Phone: [facility] 04-19-2021 13:32-0500 Body mass index (BMI) [Ratio] 32.2 kg/m2 Rosa Khan MD Work Phone: [facility] 04-19-2021 13:32-0500 Body weight 96.07 kg Rosa Khan MD Work Phone: [facility] 04-19-2021 13:32-0500 Diastolic blood pressure 72 mm[Hg] Rosa Khan MD Work Phone: [facility] 04-19-2021 13:32-0500 Heart rate 60 /min Rosa Khan MD Work Phone: [facility] 04-19-2021 13:32-0500 Respiratory rate 16 /min Rosa Khan MD Work Phone: [facility] 04-19-2021 13:32-0500 Systolic blood pressure 152 mm[Hg] Rosa Khan MD Work Phone: [facility] 02-19-2019 11:01-0500 BP Diastolic 62 mm[Hg] [facility] 02-19-2019 11:01-0500 BP Systolic 125 mm[Hg] [facility] 02-19-2019 11:01-0500 Pulse (Heart Rate) 46 /min [facility] 02-19-2019 11:01-0500 Pulse Oximetry 93 % [facility] 02-19-2019 11:01-0500 Respiratory Rate 19 /min [facility] 02-19-2019 10:40-0500 Body Temperature 97.39 [degF] [facility] 02-19-2019 09:26-0500 BMI (Body Mass Index) 28.02 kg/m2 [facility] 02-19-2019 09:26-0500 Body weight 88.56 kg [facility] 02-19-2019 09:26-0500 Height 177.8 cm [facility] Encounters Encounter Date Encounter Type Care Provider Facility Start: 02-28-2023 End: 03-05-2023 ambulatory ANGELA ELLIOTT MD Facility:B Start: 02-28-2023 End: 03-04-2023 Outreach Lab ANGELA ELLIOTT MD [facility] Start: 01-12-2022 End: 01-13-2022 ambulatory [facility] Start: 01-12-2022 End: 01-12-2022 Subsequent hospital visit by physician Unlisted Provider [facility] Imaging Procedures Date Procedure Procedure Detail Performing Clinician Start: 03-23-2020 Radiologic exam abdo men 1 view Jarrell Gray Start: 03-23-2020 Assay of prostate sp ecific antigen total Jarrell Gray Start: 11-03-2019 Assay of blood/uric acid Lilly Philippe Work Phone: Start: 10-20-2019 Adult depression scr eening assessment Lilly Jose Martin Start: 08-25-2019 Assay of thyroid stimulating hormone tsh Lilly Cong Philippe Work Phone: Start: 08-25-2019 CBC WITH DIFFERENTIAL C atherine A Jose Martin Work Phone: Start: 08-25-2019 Comprehensive metabo lic panel Lilly A Jose Martin Work Phone: Start: 08-25-2019 GLOMERULAR FILTRATION RATE Lilly Philippe Work Phone: Start: 08-25-2019 Lipid panel Lilly A Jose Martin Work Phone: Start: 08-25-2019 Lipid 1996 panel - S yuki or Plasma Lilly Philippe Start: 08-20-2019 Assay of prostate sp ecific antigen total Ginny Hylton Work Phone: Start: 03-21-2019 Creatinine blood Ginny Hylton Work Phone: Start: 03-21-2019 GLOMERULAR FILTRATION RATE Ginny Hylton Work Phone: Start: 02-25-2019 Radiologic exam abdo men 1 view Tay Solis Work Phone: Start: 02-25-2019 Assay of prostate sp ecific antigen total Tay Solis Work Phone: Start: 11-19-2018 Lipid 1996 panel - S yuki or Plasma Ben Simental Plan of Treatment Date Care Activity Detail Author Start: 08-24-2024 Fasting lipid profile LIPID SCREENING [facility] Start: 02-20-2024 Screening colonoscopy [facility] Start: 02-20-2024 Screening for malignant neoplasm of colon COLONOSCOPY HIGH RISK (5 YEAR) [facility] Start: 11-20-2023 Fasting lipid profile LIPID SCREENING [facility] Start: 04-19-2022 End: 04-19-2022 Patient encounter procedure 04/19/2022 Office Visit Cardiology Dannielle Hartmann MD [address] [place] [address] [facility] Start: 12-19-2021 End: 12-19-2021 Patient encounter procedure 12/19/2021 Office Visit Vascular Surgery Darion Andrew, DO [address] [place] [address] [facility] Start: 11-17-2021 Influenza vaccination Influenza Vaccine (#1) [facility] Start: 11-17-2021 Influenza vaccination given INFLUENZA VACCINE (#1) [facility] Start: 09-16-2021 Glaucoma screening GLAUCOMA/EYE EXAM AGE 65+ [facility] Start: 03-30-2021 End: 03-30-2021 Patient encounter procedure 03/30/2021 Office Visit [place] [address] [facility] Start: 03-10-2021 COVID-19 Vaccine (3 - Booster for Moderna series) COVID-19 Vaccine (3 - Booster for Moderna series) [facility] Start: 02-22-2021 Uric acid measurement URIC ACID [facility] Start: 02-08-2021 COVID-19 Vaccine (3 - Booster for Moderna series) COVID-19 Vaccine (3 - Booster for Moderna series) [facility] Start: 11-17-2020 Influenza vaccination Influenza Vaccine (#1) [facility] Start: 11-17-2020 Influenza vaccination given INFLUENZA VACCINE (#1) [facility] Start: 10-20-2020 ANNUAL WELLNESS VISIT ANNUAL WELLNESS VISIT [facility] Start: 10-19-2020 Adult depression screening assessment DEPRESSION SCREENING [facility] Start: 10-19-2020 Fall risk assessment FALL RISK [facility] Start: 10-19-2020 End: 10-19-2020 Office Visit 10/19/2020 Office Visit Family Medicine Josee Ramos DO [address] [place] [address] [phone] Dr Josee Ramos, [facility] Start: 09-08-2020 COVID-19 VACCINE (2 - Moderna 3-dose booster series) COVID-19 VACCINE (2 - Moderna 3-dose booster series) [facility] Start: 09-08-2020 COVID-19 VACCINE (2 - Moderna 3-dose series) COVID-19 VACCINE (2 - Moderna 3-dose series) [facility] Start: 09-08-2020 COVID-19 VACCINE (2 - Moderna series) COVID-19 VACCINE (2 - Moderna series) [facility] Start: 09-06-2020 End: 09-06-2020 Office Visit 09/06/2020 Office Visit [facility] Medicine Josee Ramos DO [address] [place] [address] [phone] Dr Josee Ramos, [facility] Start: 09-01-2020 End: 09-01-2020 Clinical Support 09/01/[address] [facility] [address] [place] [address] [phone] Dr Josee Ramos, [facility] Start: 03-29-2020 End: 03-29-2020 Office Visit 03/29/2020 Office Visit Urology Ginny Hylton, [employer] [address] [place] [address] [phone] [facility] Start: 03-01-2020 End: 03-01-2020 Office Visit 03/01/2020 Office Visit [facility] Medicine Josee Ramos DO [address] [place] [address] [phone] Dr Josee Ramos, [facility] Start: 02-23-2020 End: 02-23-2020 Clinical Support 02/23/2020 Clinical Support [facility] [employer], [employer] [address] [place] [address] Dr Josee Ramos, [facility] Start: 11-18-2019 Influenza vaccination given [facility] Start: 09-03-2019 End: 09-03-2019 Office Visit 09/03/2019 Office Visit [facility] Josee Walker, DO [address] [place] [address] Dr Josee Ramos, [facility] Start: 06-17-2019 End: 06-17-2019 Office Visit 06/17/2019 Office Visit [facility] Josee Walker, DO [address] [place] [address] [phone] Dr Josee Ramos, [facility] Start: 06-09-2019 End: 04-18-2020 CBC with Differential CBC with Differential Lab Routine Screening for endocrine, metabolic and immunity disorder Expected: 06/09/2019 (Approximate), Expires: 04/18/2020 [facility] Immunizations Immunization Date Immunization Notes Care Provider Fa josep 09-08-2020 SARS-CoV-2 (COVID-19 ) mRNA-1273 vaccine ANGELA ELLIOTT MD [facility] Payers Date Payer Category Payer Unknown [id number] 2021 Medicare [id number] 2017 Medicare [id number] 2017 Medicare AETNA MEDICARE A DVANTAGE AETNA MEDICARE ADVANTAGE PPO [id number] 2017-Present [phone] [address] [place] [address] Medicare [id number] 2017 Medicare [id number] 1945 Unknown [id number] 1945 Unknown [id number] 1945 Unknown [id number] 1945 Unknown [id number] 1945 Unknown [id number] 1945 Unknown [id number] 1945 Unknown [id number] 1945 Unknown [id number] 1945 Unknown [id number] 1945 Unknown [id number] Medicare [id number] Medicare [id number] Medicare [id number] Social History Date Type Detail Facility Start: 02-19-2019 End: 01-05-2023 Tobacco smoking status NHIS Never smoker [facility] Start: 02-19-2019 End: 02-09-2021 Alcohol intake Current non-drinker of alcohol (finding) [facility] Start: 1945 Sex Assigned At Not on file [facility] Start: 03-18-2019 End: 10-31-2019 Tobacco use and exposure Never used [facility] Start: 04-19-2021 End: 11-23-2021 Alcohol intake Lifetime non-drinker (finding) [facility] [employer] Start: 04-19-2021 History SDOH Alcohol Frequency 1 [facility] [employer] Start: 12-05-2021 End: 12-15-2021 Exposure to SARS-CoV-2 (event) Not sure [facility] [employer] Sex Assigned At Male [facility] Clinical Notes 04-19-2021 Rosa Khan MD - 04/19/2021 1:30 PM ESTPatient Instructions Note Date & Type Note Facility 04-19-2021 History of Present illness Narrative Subjective Patient ID: Claudio Box is a 76 y.o. male. Chief Complaint: Follow-up CAD 76-year-old man with CAD, hypertension, hyperlipidemia, BROWN. Patient had 3 drug-eluting stents to the mid LAD in 2010. BROWN is treated with CPAP mask. When I saw the patient a year ago, he reported that he was having trouble with short-term memory over the prior 2 years. We referred him to Dr. Salazar for evaluation but patient chose not to keep the appointment. He had blood pressure checked on visit with Dr. Cam yesterday and his blood pressure was elevated at that time. Blood pressure in the office today is 152/72. Patient reports that his blood pressure at home with automatic cuff tends to run in the 130s over 80s but is always higher at the doctor's office. Patient is mildly physically active. He denies chest pain, shortness of breath, lightheadedness, palpitations, and edema. The following portions of the chart were reviewed this encounter and updated as appropriate: Review of Systems All other systems reviewed and are negative. Visit Vitals BP 152/72 (BP Location: Left arm, Patient Position: Sitting) Pulse 60 Resp 16 Ht 1.727 m (5' 8 ) Wt 96.1 kg (211 lb 12.8 oz) BMI 32.20 kg/m Smoking Status Never Smoker BSA 2.09 m Objective Vitals and nursing note reviewed. Constitutional: Appearance: Not in distress. HENT: Head: Normocephalic and atraumatic. Neck: Vascular: No carotid bruit or JVD. Pulmonary: Effort: Pulmonary effort is normal. Breath sounds: Normal breath sounds. No wheezing. No rales. Chest: Chest wall: Not tender to palpatation. Cardiovascular: Normal rate. Regular rhythm. Murmurs: There is no murmur. No gallop. No click. No rub. Pulses: Intact distal pulses. Abdominal: Palpations: Abdomen is soft. Tenderness: There is no abdominal tenderness. Musculoskeletal: Extremities: No clubbing present. Cervical back: Neck supple. Skin: General: Skin is warm and dry. Neurological: General: No focal deficit present. Mental Status: Alert and oriented to person, place and time. Comments: Poor short-term memory EKG shows normal sinus rhythm rate 60, normal axis and intervals, minimal voltage for LVH, otherwise normal EKG Assessment/Plan The primary encounter diagnosis was Atherosclerosis of [place] coronary artery of [place] heart without angina pectoris. Diagnoses of Essential (primary) hypertension and Mixed hyperlipidemia were also pertinent to this visit. Assessment 1. CAD, 3 stents to mid LAD in 2010, no angina 2. Hyperlipidemia, on statin 3. Hypertension, elevated in office today 4. Short-term memory loss Plan 1. Stop hydrochlorothiazide and start losartan HCT 50/12.5 mg daily for hypertension 2. We will check with Dr. Cam's office to see if she has recent cholesterol lab work 3. Follow-up 1 year Outpatient Encounter Medications as of 04/19/2021 Medication Sig Dispense Refill allopurinol (Zyloprim) 300 mg tablet ONE BY MOUTH ONCE A DAY at bedtime (to prevent gout) aspirin 81 mg EC tablet ONE BY MOUTH ONCE A DAY atorvastatin (Lipitor) 20 mg tablet 1 (one) time each day at the same time. cetirizine (ZyrTEC) 10 mg tablet 1 (one) time each day at the same time. losartan-hydrochlorothiazide (Hyzaar) 50-12.5 mg tablet Take 1 tablet by mouth 1 (one) time each day. 90 tablet 3 metoprolol tartrate (Lopressor) 50 mg tablet every 12 (twelve) hours. nitroglycerin (Nitrodur) 0.4 mg/hr patch one as needed timolol (Timoptic) 0.5 % ophthalmic solution every 12 (twelve) hours. [DISCONTINUED] hydroCHLOROthiazide (Microzide) 12.5 mg capsule 1 capsule 1 (one) time each day at the same time. [DISCONTINUED] losartan-hydrochlorothiazide (Hyzaar) 50-12.5 mg tablet Take 1 tablet by mouth 1 (one) time each day. No facility-administered encounter medications on file as of 04/19/2021. documented in this encounter [facility] [employer] 04-19-2021 Instructions Kimmie Marcelino, RADHA - 04/19/2021 1:30 PM EST Images from the original note were not included. Patient Education Heart-Healthy Diet Healthy Habits for a Healthy Heart Heart-Healthy Eating Heart-healthy eating can support your heart and blood vessels. It can also limit things that can harm them. Eating this way can also help control your risk of heart disease. It is vital for people who have: Heart disease, such as coronary artery disease (CAD), peripheral vascular disease (PAD), prior heart attack, or prior stroke Heart disease risks, such as high blood pressure, high cholesterol, or diabetes A need to lower their risk of having heart problems You can eat this way and still choose from many types of foods. Here are some tips to help you get started. Focus on Healthy Foods Healthy foods have high of vitamins, minerals, and other things your body needs. They have less things like salt and trans fats. These can harm vessels. They can also make blood pressure or cholesterol worse. Whole foods that are close to their normal state are: Fruits and veggies Whole grains Meats and poultry with very little fat Fish Beans Eggs Nuts Low- or fat-free milk and milk items Heart-healthy eating focuses on these foods. Processed foods aren't as healthy. These are foods in boxes, cans, or bags. They should be eaten rarely. They have little nutritional value. They are also high in things like fats and salt. Read food labels to find out how much of these the foods you eat have. Always pick whole foods first. Food Choices Here are some changes you can make. Food Healthy choices... Do not eat or eat rarely... Grains Breads and rolls without salted tops Most dry and cooked cereals Unsalted crackers and breadsticks Low-salt or homemade breadcrumbs or stuffing All rice and pastas Make half of your daily grains whole grains Breads, rolls, and crackers with salted tops High-fat baked goods like muffins, donuts, and pastries Quick breads, self-rising flour, and biscuit mixes Bread crumbs Instant hot cereals Pre-made rice, pasta, or stuffing mixes Fruits and veggies Most fresh, frozen, and low-salt canned fruits and veggies Low-salt and salt-free veggie juices All fruit juices Canned veggies if unsalted or rinsed Canned veggies and juices, such as sauerkraut and pickled veggies Fruits with salt Frozen veggies with sauces Pre-made potato and veggie mixes Milk Nonfat or low-fat (1%) milk Nonfat or low-fat yogurt Cottage cheese, low-fat ricotta, cheeses labeled as low-fat and low-salt Whole milk Reduced-fat (2%) milk Malted and chocolate milk Full fat yogurt Most cheeses, unless low-fat and low salt Buttermilk (no more than 1 cup per week) Meats and Beans Lean cuts of fresh or frozen beef, veal, robbins, or pork (look for the word loin) Fresh or frozen poultry without the skin Fresh or frozen fish and some shellfish Egg whites and egg substitutes (Limit whole eggs to three per week) Tofu Nuts or seeds (unsalted, dry-roasted), low-salt peanut butter Dried peas, beans, and lentils Any smoked, cured, salted, or canned meat, fish, or poultry, such as malone, chipped beef, cold cuts, hot dogs, sausages, sardines, and anchovies Poultry skins Breaded and/or fried fish or meats Canned peas, beans, and lentils Salted nuts Fats and Oils Monounsaturated and polyunsaturated fats found in olive oil and canola oil Low-salt, low-fat salad dressings and rivera Saturated and trans fats found in some butter, margarine, coconut and palm oils, malone fat Snacks, Sweets, and Condiments Low-salt or unsalted versions of broths, soups, soy sauce, and condiments Pepper, herbs, and spices; vinegar, lemon, or akutan juice Low-fat frozen desserts (yogurt, sherbet, fruit bars) Sugar, cocoa powder, honey, syrup, and jam Low-fat, trans-fat free cookies, cakes, and pies Jesus and animal crackers, fig bars, shayne snaps High-fat desserts Broth, soups, gravies, and sauces, made from instant mixes or other high-salt items Salted snack foods Canned olives Meat tenderizers, seasoning salt, and most flavored vinegars Drinks Low-salt carbonated drinks Tea and coffee in moderation Soy milk Softened water having a water softener in your home may raise the amount of salt in your home's water Calories and Activity All the foods we eat have a unit of energy called calories. We must balance the calories we take in with the energy we burn. We burn energy through body functions, activities, and exercise. Weight gain happens if you eat more calories than your body uses. This is a problem because too much weight raises the risk of heart disease. If you need to lose weight, track the calories in the food you eat. Compare those calories to the amount of calories that you burn. Make changes to balance calories and activity so that you can lose weight. Follow Healthy Habits Here are some healthy habits: Eat fish at least twice a week. Fish have a fat called omega-3 fatty acids that may have some heart benefits. The fish highest in omega-3 fatty acids and lowest in mercury are salmon, mijares, mackerel, sardines, and canned chunk light tuna. Do not eat fast food and convenience food. They tend to be high in saturated and trans fat and have a lot of added salt. Limit alcohol to one drink per day for women and up to two drinks per day for men. Intermittent fasting is an eating pattern that cycles between fasting and eating. It may improve heart disease risk factors, such as obesity, high blood pressure, high cholesterol, and diabetes. Know about: Sugary foods or drinks Sugar can add calories with little to no value and are often not very filling. Partially hydrogenated oils and trans fats These fats can raise your cholesterol levels. Read food labels and do not eat them or limit foods with them. Saturated fats These are common in animal products. If your cholesterol is high, your doctor may tell you to lower your saturated fat intake. Salt intake Lowering your salt intake can lower your blood pressure and stress on your heart. Most salt comes from processed foods. Read food labels and aim for 2,400 milligrams (mg) a day or less. If you have high blood pressure your doctor may tell you to limit salt intake to 1,500 mg per day. When you make meals: Skip the salt when cooking or at the table. If food needs more flavor, try herbs and spices. Garlic and onion also add a lot of flavor. Trim fat off meat and poultry before you cook them. Drain the fat off after roth. Use cooking methods that don't need fat, such as grilling, boiling, baking, poaching, broiling, roasting, steaming, stir-frying, and saut ing. Watch your serving sizes. A food scale may help you get used to serving sizes. If you need help making these changes, talk to your doctor. A dietitian can teach you how to make changes. Last Reviewed: February 2020 [facility] [place] Medical Review Board Mira Gerard MS, RD, LDN Updated: 04/21/2020 [facility] [place] documented in this encounter [facility] Evaluation + Plan note Future Appointments Appointment Date:08/01/2023 10:30:00 AM Scheduled Provider:ANGELA ELLIOTT MD Location:[facility] Appointment Type: OV [facility] Diagnosis Non-pressure chronic ulcer of other part of right lower leg with fat layer exposed PAD (peripheral artery disease) Unspecified peripheral vascular disease [facility] Diagnosis Mild cognitive impairment of uncertain or unknown etiology documented in this encounter [facility] Narr[facility] No data available for this section [facility] Hospital Discharge instructions No data available for this section [facility] Progress note No data available for this section [facility] Reason for referral (narrative)* Procedure Authorization (Routine) - Closed Specialty Diagnoses / Procedures Referred By Tico montero Referred To Contact Radiology Diagnoses Mild cognitive impairment of uncertain or unknown etiology Procedures MRI Brain Without IV Contrast Milli Jc MD [address] [address] [address] Referral ID Status Reason Start Date Expiration Date Visits Re quested Visits Authorized [id number] Closed 12/29/2021 03/18/2022 1 1 [facility] Procedure Authorization (Routine) - Closed Specialty Diagnoses / Procedures Referred By Tico montero Referred To Contact Radiology Diagnoses Mild cognitive impairment of uncertain or unknown etiology Procedures MRI Brain Without IV Contrast ProviderMilli MD [address] [place] [phone] Referral ID Status Reason Start Date Expiration Date Visits Re quested Visits Authorized [id number] Closed 12/29/2021 03/18/2022 1 1 [facility] Hospital Course * Ben Simental MD - 02/19/2019 10:47 AM EST Patient in endoscopy for procedure. Procedure performed without difficulty. See report for findings. Patient sent home after meeting discharge criteria and in good condition. Procedure: Colonoscopy + Biopsy Complications: None Diagnosis: History of colon polyps, colon polyp Follow Up: Office will call or send a letter regarding biopsy results in 2 weeks. Ben Simental MD 02/19/2019 10:47 AM documented in this encounter Discharge Instructions * Instructions* Megan Sheets RN - 02/19/2019 SCOPE DISCHARGE INSTRUCTIONS You have had a Colonoscopy (Colon) procedure. Sedation: You were given medication for sedation. You may feel drowsy or tired for a few hours. We recommend you not be alone today. Please do not participate in activities that require good coordination or concentration such as driving a car or operating machinery for the next 24 hours. Protect yourself against falls, especially on the stairs or when walking long distances. Delay making businessdecisions that require the signing of legal documents for a minimum of 24 hours. No alcoholic beverages for 24 hours. Diet: Type of diet ordered High Fiber. IV: If the IV site swells or bleeds, please apply direct pressure for 5 minutes. If the site becomes red, you may apply warm, moist compresses to the site. Please see a healthcare professional if youhave concerns about your IV site. Abdomen: Following the procedure called colonoscopy, you may be aware of a bloated appearance andfeeling of your abdomen. You may also experience some cramping or gas pains . The distention and discomfort should subside as you pass the air. If you are unable to pass the air, please contact your physician. Pain/Bleeding: You have had a polyp removed performed during the procedure. You may expect a littlebleeding from the site. Within the next 48 hours, if the bleeding becomes excessive or is accompanied by abdominal or chest pain, please call your physician immediately. If you are on aspirin or NSAIDS (non-steroidal anti-inflammatory drugs) then you can resume in today. If no follow-up appointment is required, you may receive a letter or phone call from the physician regarding your test/biopsy results within the next two weeks. A note will also be sent to your referring physician. If you have any questions, call your physician's office. High-Fiber Diet: Care Instructions Your Care Instructions A high-fiber diet may help you relieve constipation and feel less bloated. Your doctor and dietitian will help you make a high-fiber eating plan based on your personal needs.The plan will include the things you like to eat. It will also make sure that you get 30 grams of fiber a day. Before you make changes to the way you eat, be sure to talk with your doctor or dietitian. Follow-up care is a adair part of your treatment and safety. Be sure to make and go to all appointments, and call your doctor if you are having problems. It's also a good idea to know your test resultsand keep a list of the medicines you take. How can you care for yourself at home? You can increase how much fiber you get if you eat more of certain foods. These foods include: ? Whole-grain breads and cereals. ? Fruits, such as pears, apples, and peaches. Eat the skins, peels, and seeds, if you can. ? Vegetables, such as broccoli, cabbage, spinach, carrots, asparagus, and squash. ? Starchy vegetables. These include potatoes with skins, kidney beans, and carrasco beans. Take a fiber supplement every day if your doctor recommends it. Examples are Benefiber, Citrucel, FiberCon, and Metamucil. Ask your doctor how much to take. Drink plenty of fluids, enough so that your urine is light yellow or clear like water. If you have kidney, heart, or liver disease and have to limit fluids, talk with your doctor before you increase the amount of fluids you drink. Get some exercise every day. Exercise helps stool move through the colon. It also helps prevent constipation. Keep a food diary. Try to notice and write down what foods cause gas, pain, or other symptoms. Thenyou can avoid these foods. Where can you learn more? Go to https://www.EXFO.net/patientEd Enter U654 in the search box to learn more about High-Fiber Diet: Care Instructions. Current as of: November 06, 2018 Content Version: 12.3 6486-6293 [employer] Care instructions adapted under license by your healthcare professional. If you have questions about a medical condition or this instruction, always ask your healthcare professional. [employer] disclaims any warranty or liability for your use of this information. documented in this encounter Assessments Diagnosis History of colon polyps Personal history of colonic polyps Diagnosis BPH without obstruction/lower urinary tract symptoms Hypertrophy of prostate without urinary obstruction and other lower urinary tract symptoms (LUTS) Diagnosis Kidney stone Calculus of kidney Bladder stones Other calculus in bladder Diagnosis Microhematuria Microscopic hematuria Abnormal urinalysis Other nonspecific finding on examination of urine Diagnosis Microscopic hematuria Diagnosis Microscopic hematuria- Primary Kidney stone Calculus of kidney Microhematuria Microscopic hematuria Diagnosis Benign prostatic hyperplasia with weak urinary stream Diagnosis Screening for endocrine, metabolic and immunity disorder Diagnosis Chronic gout of right foot, unspecified cause Diagnosis Kidney stone Calculus of kidney Diagnosis Screening for endocrine, metabolic and immunity disorder- Primary Advance Directives No Advanced Directives Records FoundDocuments on File Type Date Recorded Patient Histologist Technologist Expl anation Advance Directives and Livin g Will Advance Directives and Livin g Will 12/13/2010 3:51 PM Power of Veterinarian Poultry Latest Code Status on File Code Status Date Activated Date Inactivated Comments Full Code 02/19/2019 9:11 AM Full Code 12/14/2015 1:10 PM 12/14/2015 10:45 PM Full Code 12/13/2010 3:43 PM 12/14/2010 9:33 PM Documents on File Type Date Recorded Patient Histologist Technologist Expl anation Advance Directives and Livin g Will Advance Directives and Livin g Will 12/13/2010 3:51 PM Power of Veterinarian Poultry Latest Code Status on File Code Status Date Activated Date Inactivated Comments Full Code 02/19/2019 9:11 AM 02/19/2019 5:28 PM Full Code 12/14/2015 1:10 PM 12/14/2015 10:45 PM Full Code 12/13/2010 3:43 PM 12/14/2010 9:33 PM Latest Code Status on File Code Status Date Activated Date Inactivated Comments Full Code 02/19/2019 9:11 AM 02/19/2019 5:28 PM Documents on File Type Date Recorded Patient Histologist Technologist Expl anation Advance Directives and Livin g Will Power of Veterinarian Poultry Advance Directives and Livin g Will 12/13/2010 3:51 PM Documents on File Type Date Recorded Patient Histologist Technologist Expl anation Advance Directives and Living Will Power of Veterinarian Poultry Documents on File Type Date Recorded Patient Histologist Technologist Expl anation Advance Directives and Livin g Will Power of Veterinarian Poultry DNR Documentation Advance Directives and Livin g Will 12/13/2010 3:51 PM Documents on File Type Date Recorded Patient Histologist Technologist Expl anation Advance Directives and Living Will Power of Veterinarian Poultry Reason for Referral Status Reason Specialty Diagnoses / Procedures Referre d By Contact Referred To Contact Closed Radiology Diagnoses Kidney stone Microhematuria Procedures CT Abdomen Pelvis With and Without IV Contrast Ginny Hylton APRN [employer] [address] [address] General Radiology [address] [place] [address] Specialty Diagnoses / Procedures Referred By Contac t Referred To Contact Diagnoses Non-pressure chronic ulcer of other part of right lower leg with fat layer exposed PAD (peripheral artery disease) Procedures VAS ANKLE BRACHIAL INDEX Darion Andrew, DO [address] [place] [address] Phone: Fax: Darion Andrew, DO [address] [place] [phone] Phone: Referral ID Status Reason Start Date Expiration Date Visits Re quested Visits Authorized [id number] Closed 11/23/2021 11/23/2022 1 1 Summary Purpose Family History No Family History Records FoundNo Family History Records Found No data available for this section No Family History Records Found Additional Source Comments Reason for Visit (unrecogniz ed section and content) Reason Comments Information or Advice only Status Reason Specialty Diagnoses / Procedures Referre d By Contact Referred To Contact Closed Radiology Diagnoses Kidney stone Microhematuria Procedures CT Abdomen Pelvis With and Without IV Contrast Ginny Hylton APRN [employer] [address] [address] General Radiology [address] [place] [address] Reason Comments Medication Refill Reason Comments Follow-up 12 month f/u Specialty Diagnoses / Procedures Referred By Tico t Referred To Contact Diagnoses Non-pressure chronic ulcer of other part of right lower leg with fat layer exposed PAD (peripheral artery disease) Procedures VAS ANKLE BRACHIAL INDEX Darion Andrew, DO [address] [place] [phone] Phone: Darion Andrew, [address] [phone] Phone: Referral ID Status Reason Start Date Expiration Date Visits Re quested Visits Authorized [id number] Closed 11/23/2021 11/23/2022 1 1 Result QuickNote - Ginny Hylton APRN CNP - 03/23/2020 7:30 AM EST Miscellaneous Notes (unrecog nized section and content) This is preappt imaging, we will discuss at upcoming urology appt. documented in this encounter Care Teams (unrecognized sec tion and content) Invasive Physician Relationship Specialty Start Date End Date Rosa Khan MD [address] [place] [phone] Consulting Physician Cardiology 03/18/20 Invasive Physician Relationship Specialty Start Date End Date Ramos Lisa DO [address] [place] [address] PCP - General Family Medicine 02/05/21 Invasive Physician Relationship Specialty Start Date End Date July, DO Josee [address] [place] [address] PCP - General Internal Medicine 12/05/21 Invasive Physician Relationship Specialty Start Date End Date July, Josee Rebollar DO [address] [place] [id number] PCP - General Internal Medicine 10/25/21 Rosa Khan MD [address] [place] [phone] Consulting Physician Cardiology 03/18/20 Invasive Physician Relationship Specialty Start Date End Date July, DO Josee [address] [place] [address] PCP - General Internal Medicine 12/05/21 (unrecognized sect ion and content) No Status Records FoundNo Status Records FoundNo Status Records Found INFORMATION SOURCE (unrecogn ized section and content) DATE CREATED AUTHOR AUTHOR'S ORGANIZ ATION 08/27/2022 [facility] DATE CREATED AUTHOR AUTHOR'S ORGANIZ ATION 03/05/2023 [facility] FOR RECORDS PERTAINING TO PATIENTS WHO ARE OR HAVE BEEN ENROLLED IN A CHEMICAL DEPENDENCY/SUBSTANCEABUSE PROGRAM, SOME INFORMATION MAY BE OMITTED. This clinical summary was aggregated from multiple sources. Caution should be exercised in using it in the provision of clinical care. This summary normalizes information from multiple sources, and as a consequence, information in this document may materially change the coding, format and clinical context of patient data. In addition, data may be omitted in some cases. CLINICAL DECISIONS SHOULD BE BASED ON THE PRIMARY CLINICAL RECORDS. [facility]. provides no warranty or guarantee of the accuracy or completeness of information in this document.
[2023-04-12 14:01] LABS: International Normalized Ratio 1.2
[2023-04-12 14:02] LABS: Partial Thromboplast Time 31.7 Seconds (24.1-36.2)
[2023-04-12 14:15] LABS: Cholesterol 103 mg/dL (200); High Density Lipoprotein 54 mg/dL; Triglycerides 100 mg/dL; Very Low Density Lipoprotein 20 mg/dL (5-40)
[2023-04-12 14:18] LABS: Hemoglobin A1c 5.6 % (3.8-5.6)
[2023-04-12] MEDS: 0.9% Normal Saline (1000mL) 1,000 ML 150 ML IV ×2 (14:28→21:27)
[2023-04-12] MEDS: HEPARIN/D5w 25,000 UNITS 25,000 UNITS/250 ML IV.SOLN. 10 UNITS CONT INF (14:29)
[2023-04-12] MEDS: Heparin Injection (Vial) 5,000 UNIT/ML VIAL 4000 UNIT IV (14:29)
[2023-04-12] MEDS: 0.9% Saline Lock 10 ML Syringe IV ×2 (14:29→23:13)
[2023-04-12] MEDS: Acetaminophen 325 MG Tablet 650 MG PO ×2 (14:30→23:31)
[2023-04-12 15:00] LABS: Troponin-I HS 3095 pg/mL (3.0-78.0)
[2023-04-12 15:31] LABS: Reflex Lactate? Y
--- NOTE | 2023-04-12 15:50 | PCM.CONS.C ---
Assessment & Plan Assessment/Plan (1) Rhabdomyolysis: QUALIFIERS: Rhabdomyolysis type: traumatic Encounter type: initial encounter Qualified Code(s): T79.6XXA - Traumatic ischemia of muscle, initial encounter PLAN: Patient CPK is 28,000 in the face of acute renal failure. The patient is being treated by the primary service for the rhabdomyolysis. (2) Coronary arteriosclerosis after percutaneous transluminal coronary angioplasty (PTCA): PLAN: Status post stenting in [facility] in 2010 the patient is not aware of the vessels utilized but he does think there were 3 stents deployed. 2D echocardiogram is being performed. At this point in time given his CPK of 28,000 and his acute renal failure and a troponin high-sensitivity is 3000 no chest discomfort and no definitive EKG ischemic changes I would recommend we treat this conservatively with medical therapy. (3) Cardiac enzymes elevated: PLAN: See #2 above. The patient's troponin is 3000 and CPK is 28,000. He also has symptoms of acute renal failure and hepatic congestion with elevated LFTs BUN and creatinine being elevated and lactic acidosis. Will evaluate the patient's 2D echocardiogram for his LV function and use this to guide medical therapy. At this point in time do not feel the invasive evaluation is indicated. I discussed this in detail with the patient and the risk of contrast exposure in the face of his rhabdomyolysis and acute renal failure hepatic insufficiency with a lack of overt EKG changes would make the risk greater than the benefit in my opinion of proceeding with invasive evaluation at this time. PLAN: Plan Continue with the conservative management as long as the patient's EKG remained stable. Continue with aggressive secondary risk factor modifications including reinstitution of his medical therapy following clearance of the rhabdomyolysis. We will follow along as directed. HPI Consult Data Date of Consult: 04/12/23 HPI Narrative Reason for Consultation: Elevated troponins. HPI Narrative: CLAUDIO WELLER, is a 78 M who presents after being found down by his . Apparently the found the patient after he had fallen last evening and laid in the floor all night long. The patient presented to the emergency department and was diagnosed with rhabdomyolysis CPK of 28,000. The patient is also in acute renal failure with a BUN of 69 creatinine 3.27 and a GFR in the 20 range. He has a lactic acidosis of 2.3 he is not diabetic LFTs elevated with AST of 576 and ALT of 162. The patient does carry history of dementia he has known coronary disease status post remote stenting in [facility] in 2010. He says he had 3 stents but he does not know the location of the stents. Patient is EKG in the emergency department showed a normal sinus rhythm with nonspecific ST-T wave changes. These are really minor changes. Serial EKGs did not show any evolution of the EKG. Initial high-sensitivity troponin was 3095. The patient currently denies any chest discomfort he reports he is sore all over. He denies any PND orthopnea he does not know if he passed out or if he tripped and fell he is knows he could not get up once he was on the floor. An echocardiogram is being performed at this time. Grossly the LV function looks to be adequately preserved. The valves had not been interrogated at the time of my examination. [facility] Medical History (Updated 04/12/23 @ 16:[address] Jack Fuller MD) CVA (cerebral vascular accident) Dementia High cholesterol Hypertension Kidney calculi Home Medications albuterol sulfate 90 mcg/actuation aerosol inhaler 2 puff inhalation Q4H PRN wheezing 04/12/23 [History Last Taken Unknown] allopurinol 300 mg tablet 300 mg PO DAILY gout 04/12/23 [History Last Taken 04/11/23] aspirin 81 mg capsule 81 mg PO DAILY heart health 04/12/23 [History Last Taken 04/11/23] atorvastatin 20 mg tablet 20 mg PO DAILY cholesterol 04/12/23 [History Last Taken 04/11/23] benzonatate 100 mg capsule 100 mg PO TID PRN PRN cough 04/12/23 [History Last Taken Unknown] cetirizine 10 mg tablet 10 mg PO DAILY PRN allergy symptoms 04/12/23 [History Last Taken Unknown] donepezil 10 mg tablet 10 mg PO QHS dementia 04/12/23 [History Last Taken 04/11/23] losartan 50 mg-hydrochlorothiazide 12.5 mg tablet 1 tab PO DAILY blood pressure 04/12/23 [History Last Taken 04/11/23] memantine 5 mg tablet 5 mg PO BID dementia 04/12/23 [History Last Taken 04/11/23] methylprednisolone 4 mg tablets in a dose pack 4 mg PO steriod 04/12/23 [History Last Taken Unknown] metoprolol tartrate 25 mg tablet 25 mg PO BID blood pressure 04/12/23 [History Last Taken 04/11/23] tamsulosin 0.4 mg capsule 0.4 mg PO DAILY urination 04/12/23 [History Last Taken 04/11/23] timolol maleate 0.5 % eye drops 1 drp ophthalmic (eye) BID eye health 04/12/23 [History Last Taken 04/11/23] Allergy/AdvReac Type Severity Reaction Status Date / Time No Known Allergies Allergy Verified 04/12/23 11:22 unable to obtain Surgical History (Updated 04/12/23 @ 16:[address] Jack Fuller MD) History of heart artery stent unable to obtain Social History Smoking Status: Never smoker ROS ROS Narrative It was difficult to obtain an adequate review of systems at this time. Review of Systems ROS Unobtainable: due to mental condition Physical Exam Const alert Constitutional Narrative: The patient is moaning due to the diffuse muscle soreness. The echocardiogram is being performed at this time. HEENT normocephalic Eyes EOMs intact bilaterally Neck no carotid bruits Chest inspection of chest normal Resp normal respiratory effort Auscultation: Negative for crackles, rales, rhonchi or wheezes Cardio regular rate, regular rhythm, S1 normal heart sound, S2 normal heart sound, no murmurs, no rub and no gallops Peripheral Pulses: radial pulses present bilateral 2+ and posterior tibial pulses present bilateral 1+ GI soft to palpation Extremity no pedal edema Skin Skin Narrative: The patient is diffusely tender to touch. Neuro Neuro Narrative: The patient is grossly intact but slow to answer questions. Psych cooperative Risk Stratification Risk Stratification Applicable: Yes Age >/= 65: Yes >/= 3 CAD Risk Factors (HTN, HLD, DM, family hx of CAD, or current smoker): Yes Aspirin Use in the Past 7 Days: Yes Severe Angina (>/= episodes in 24 hours): No EKG ST Changes >/= 0.5mm: No Positive Cardiac Marker: Yes RACHEL Risk Stratification Score: 4 RACHEL % Risk: 20% Risk Charges/Coding Visit Charges Inpatient E&M: 22099 Init Hosp L3 Objective Data Vital Signs: Vital Signs Temp Pulse Resp BP Pulse Ox O2 Del Method O2 Flow Rate 97.2 F L 70 18 106/52 L 95 Nasal Cannula 2 04/12/23 13:51 04/12/23 13:51 04/12/23 13:51 04/12/23 13:51 04/12/23 14:51 04/12/23 14:51 04/12/23 14:51 Oxygen Flow Rate (L/min) 2 Oxygen Delivery Method Nasal Cannula Weight: 197 lb 5.019 oz Body Mass Index (BMI) 29.9 Intake & Output: Intake and Output for Last 24 Hours 04/10/23 04/11/23 04/12/23 23:59 23:59 23:59 Intake Total 1999 Balance 1999 Lab / Micro Data Attestation: I reviewed the patient's lab results. 04/12/23 11:00 04/12/23 11:00 Labs: Laboratory Results - last 24 hr 04/12/23 11:00: WBC 8.8, RBC 4.08 L, Hgb 13.6, Hct 41.1, MCV 100.7 H, MCH 33.3 H, MCHC 33.1, RDW Std Deviation 51.8 H, RDW Coeff of Ese 14.1, Plt Count 123 L, MPV 9.8, Immature Gran % (Auto) 0.300, Neut % (Auto) 84.0 H, Lymph % (Auto) 6.2 L, Roberts % (Auto) 9.4, Eos % (Auto) 0.0, Baso % (Auto) 0.1, Absolute Neuts (auto) 7.4, Absolute Lymphs (auto) 0.54 L, Nucleated RBC % 0, Differential Comment COMMENT, PT Cancelled 04/12/23 11:00: PT 15.0 H, INR Cancelled 04/12/23 11:00: INR 1.2, APTT Cancelled 04/12/23 11:00: APTT 31.7, Sodium 141, Potassium 4.0, Chloride 112 H, Carbon Dioxide 18.0 L, Anion Gap 11, BUN 69 H, Creatinine 3.27 H, Estim Creat Clear Calc 20.51, Est GFR (MDRD) Af Amer 24 L, Est GFR (MDRD) Non-Af 20 L, BUN/Creatinine Ratio 21.1 H, Glucose 93, Hemoglobin A1c 5.6, Lactic Acid 2.3 H*, Calcium 8.7, Total Bilirubin 0.70, AST 576 H, ALT 162 H, Alkaline Phosphatase 85, Total Creatine Kinase 87447 H, Troponin I High Sens 3604 H*, Total Protein 7.3, Albumin 3.1 L, Globulin 4.2, Albumin/Globulin Ratio 0.7 L, Triglycerides 100, Cholesterol 103, LDL Cholesterol 29, VLDL Cholesterol 20, HDL Cholesterol 54, Lipase 42 04/12/23 14:30: Troponin I High Sens 3095 H* Micro: Microbiology 04/12/23 11:18 Mucosa - Nasopharyngeal SARS-CoV-2, Influenza & RSV (PCR) - Final Influenzae A Cardiology Labs/Tests 04/12/23 11:00: WBC 8.8, RBC 4.08 L, Hgb 13.6, Hct 41.1, MCV 100.7 H, MCH 33.3 H, MCHC 33.1, Plt Count 123 L, MPV 9.8, Immature Gran % (Auto) 0.300, Neut % (Auto) 84.0 H, Lymph % (Auto) 6.2 L, Roberts % (Auto) 9.4, Eos % (Auto) 0.0, Baso % (Auto) 0.1, Absolute Neuts (auto) 7.4, Nucleated RBC % 0, PT Cancelled 04/12/23 11:00: PT 15.0 H, INR Cancelled 04/12/23 11:00: INR 1.2, APTT Cancelled 04/12/23 11:00: APTT 31.7, Sodium 141, Potassium 4.0, Chloride 112 H, Carbon Dioxide 18.0 L, Anion Gap 11, BUN 69 H, Creatinine 3.27 H, Est GFR (MDRD) Af Amer 24 L, Est GFR (MDRD) Non-Af 20 L, BUN/Creatinine Ratio 21.1 H, Glucose 93, Hemoglobin A1c 5.6, Lactic Acid 2.3 H*, Calcium 8.7, Total Bilirubin 0.70, Triglycerides 100, Cholesterol 103, LDL Cholesterol 29, VLDL Cholesterol 20, HDL Cholesterol 54 Rhythm: EKG: ECHO: Stress Test: Cardiac Cath: PCI: CT Surgery: Holter monitor: EPS: PPM: CXR: Chest CT Scan: Radiography Diagnostic Testing: Radiology Impression Brain CT 04/12/23 11:12 IMPRESSION: Chronic involutional changes of the brain. 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 Pansinusitis. Electronically Signed: Hang Wood MD at 12:24 EST , Cervical Spine CT 04/12/23 11:12 IMPRESSION: Multilevel degenerative changes, as described above. Electronically Signed: Hang Wood MD at 12:29 EST , Lumbar Spine CT 04/12/23 11:12 IMPRESSION: Multilevel degenerative changes, as described above. Electronically Signed: Hang Wood MD at 12:23 EST , Thoracic Spine CT 04/12/23 11:12 IMPRESSION: Multilevel degenerative changes. No vertebral fracture is seen. Findings suggestive of bibasilar atelectasis. Electronically Signed: Hang Wood MD at 12:25 EST , Chest X-Ray 04/12/23 12:10 IMPRESSION: No acute abnormality is seen. Electronically Signed: Hang Wood MD at 12:30 EST , EKG Initial EKG: Attestation: I personally reviewed and interpreted this EKG as follows: Interpretation: Patient had normal axis symptoms EKG with normal sinus rhythm. Minor nonspecific ST changes.
[2023-04-12] MEDS: oxyCODONE 5 MG Tablet PO ×2 (16:27→23:31)
[2023-04-12 17:46] LABS: Lactic Acid 1.1 mmol/L (0.4-1.9); Troponin-I HS 2612 pg/mL (3.0-78.0)
[2023-04-12 21:24] LABS: Partial Thromboplast Time > 200.0 Seconds (24.1-36.2)
[2023-04-12] MEDS: Memantine Hydrochloride 5 MG Tablet PO (21:40)
[2023-04-12] MEDS: Donepezil HCl 10 MG Tablet PO (21:40)
[2023-04-12] MEDS: Metoprolol Tartrate 25 MG Tablet PO (21:41)
[2023-04-12] MEDS: Oseltamivir Phosphate 30 MG Capsule PO (21:43)
[2023-04-12] MEDS: Timolol 0.5% 5ML OPTH.BTL 1 DRP OPHTHALMIC (21:43)
[2023-04-13] VITALS (9 sets, daily range): BP systolic 95–110; BP diastolic 46–63; PULSE 55–71; RESP 18; TEMP 35.9–37; O2SAT 94–99
[2023-04-13] MEDS: 0.9% Normal Saline (1000mL) 1,000 ML 150 ML IV (04:53)
[2023-04-13 05:24] LABS: Absolute Lymphocyte Count 0.52 X10^3/uL (0.83-4.51); Absolute Neutrophil Count 6.7 X10^3/uL (2.0-7.7); Basophil# 0.01 X10^3/uL; Basophil% 0.1 % (0-1); Hematocrit 36.3 % (40-54); Hemoglobin 11.9 g/dL (13.0-16.5); Lymphocyte # 0.52 X10^3/ul (0.83-4.51); Lymphocyte % 6.7 % (19-41); Mean Corp Hgb Conc 32.8 g/dL (32-36); Mean Corpuscular Hgb 33.7 pg (27.0-32.0); Mean Corpuscular Volume 102.8 fL (80-94); Mean Platelet Vol. 9.6 fl (6.2-12.0); Monocyte# 0.46 X10^3/uL; NRBC Flagged by Analyzer 0 % (0-5); Neutrophil # 6.69 X10^3/uL (2.7-7.7); Neutrophil % 86.6 % (47-70); POSITIVE DIFFERENTIAL YES; POSITIVE MORPHOLOGY YES; Platelet Count 118 K/mm3 (150-450); RBC Distribution Width CV 14.3 % (11.6-14.6); RBC Distribution Width SD 54.4 fl (35.1-43.9); Red Blood Count 3.53 M/mm3 (4.6-6.2); White Blood Count 7.7 K/mm3 (4.4-11.0)
[2023-04-13 05:32] LABS: Differential Indicated SCAN CRITERIA MET
[2023-04-13 05:40] LABS: Partial Thromboplast Time 247.2 Seconds (24.1-36.2)
[2023-04-13 05:47] LABS: ALB/GLOB Ratio 0.8 RATIO (0.9-2.4); AST(SGOT) 551 U/L (15-37); Alanine Aminotransfer ALT/SGPT 175 U/L (16-61); Albumin, Serum 2.6 g/dL (3.2-5.0); Alkaline Phosphatase 69 U/L (45-117); Anion Gap 6 (5-15); BUN 85 mg/dL (7-18); BUN/Creat Ratio 26.6 RATIO (10-20); Calcium,Total 7.7 mg/dL (8.5-10.1); Chloride 116 mmol/L (98-107); EST Glomerular Filtration Rate 20 mL/min (>60); Est Glom Filt Rate - Afr Amer 24 mL/min (>60); Estimated Creatinine Clearance 20.68 ml/min; Globulin 3.3 g/dL (2.2-4.2); Glucose 84 mg/dL (74-106); Protein, Total 5.9 g/dL (6.4-8.2); Sodium Level 142 mmol/L (136-145)
[2023-04-13 05:52] LABS: Differential Comment SCANNED
[2023-04-13 09:35] LABS: CPK Total, Creatine Kinase 26738 U/L (39-308)
--- NOTE | 2023-04-13 09:35 | PCM.PN.CARD ---
Subjective Subjective The patient reports she continues to be sore all over. He denies any definitive chest pain. His EKG showed normal sinus rhythm with minimal T wave changes. He is tolerating his current medical regiment his eyes and nose are grossly positive given the fluids to treat his rhabdomyolysis. He denies any PND orthopnea. Objective Data Vital Signs: Vital Signs Temp Pulse Resp BP Pulse Ox O2 Del Method O2 Flow Rate 97.6 F L 55 L 18 100/63 94 Nasal Cannula 2 04/13/23 03:45 04/13/23 03:45 04/13/23 03:45 04/13/23 03:45 04/13/23 03:45 04/13/23 03:50 04/13/23 03:50 Oxygen Flow Rate (L/min) 2 Oxygen Delivery Method Nasal Cannula Weight: 197 lb 5.019 oz Body Mass Index (BMI) 29.9 Intake & Output: Intake and Output for Last 24 Hours 04/11/23 04/12/23 04/13/23 23:59 23:59 23:59 Intake Total 3870.17 / 3870.17 1367.02 / 1367.02 Output Total 400 / 400 500 / 500 Balance 3470.17 / 3470.17 867.02 / 867.02 Lab / Micro Data Attestation: I reviewed the patient's lab results. 04/13/23 05:00 04/13/23 05:00 Labs: Laboratory Results - last 24 hr 04/12/23 11:00: WBC 8.8, RBC 4.08 L, Hgb 13.6, Hct 41.1, MCV 100.7 H, MCH 33.3 H, MCHC 33.1, RDW Std Deviation 51.8 H, RDW Coeff of Ese 14.1, Plt Count 123 L, MPV 9.8, Immature Gran % (Auto) 0.300, Neut % (Auto) 84.0 H, Lymph % (Auto) 6.2 L, Barron % (Auto) 9.4, Eos % (Auto) 0.0, Baso % (Auto) 0.1, Absolute Neuts (auto) 7.4, Absolute Lymphs (auto) 0.54 L, Nucleated RBC % 0, Differential Comment COMMENT, PT Cancelled 04/12/23 11:00: PT 15.0 H, INR Cancelled 04/12/23 11:00: INR 1.2, APTT Cancelled 04/12/23 11:00: APTT 31.7, Sodium 141, Potassium 4.0, Chloride 112 H, Carbon Dioxide 18.0 L, Anion Gap 11, BUN 69 H, Creatinine 3.27 H, Estim Creat Clear Calc 20.51, Est GFR (MDRD) Af Amer 24 L, Est GFR (MDRD) Non-Af 20 L, BUN/Creatinine Ratio 21.1 H, Glucose 93, Hemoglobin A1c 5.6, Lactic Acid 2.3 H*, Calcium 8.7, Total Bilirubin 0.70, AST 576 H, ALT 162 H, Alkaline Phosphatase 85, Total Creatine Kinase 66713 H, Troponin I High Sens 3604 H*, Total Protein 7.3, Albumin 3.1 L, Globulin 4.2, Albumin/Globulin Ratio 0.7 L, Triglycerides 100, Cholesterol 103, LDL Cholesterol 29, VLDL Cholesterol 20, HDL Cholesterol 54, Lipase 42 04/12/23 14:30: Troponin I High Sens 3095 H* 04/12/23 16:40: Lactic Acid 1.1, Troponin I High Sens 2612 H* 04/12/23 20:05: APTT > 200.0 H* 04/13/23 05:00: WBC 7.7, RBC 3.53 L, Hgb 11.9 L, Hct 36.3 L, MCV 102.8 H, MCH 33.7 H, MCHC 32.8, RDW Std Deviation 54.4 H, RDW Coeff of Ese 14.3, Plt Count 118 L, MPV 9.6, Immature Gran % (Auto) 0.600, Neut % (Auto) 86.6 H, Lymph % (Auto) 6.7 L, Barron % (Auto) 6.0, Eos % (Auto) 0.0, Baso % (Auto) 0.1, Absolute Neuts (auto) 6.7, Absolute Lymphs (auto) 0.52 L, Nucleated RBC % 0, Differential Comment SCANNED, APTT 247.2 H*, Sodium 142, Potassium 4.0, Chloride 116 H, Carbon Dioxide 20.0 L, Anion Gap 6, BUN 85 H, Creatinine 3.20 H, Estim Creat Clear Calc 20.68, Est GFR (MDRD) Af Amer 24 L, Est GFR (MDRD) Non-Af 20 L, BUN/Creatinine Ratio 26.6 H, Glucose 84, Calcium 7.7 L, Total Bilirubin 0.40, AST 551 H, ALT 175 H, Alkaline Phosphatase 69, Total Creatine Kinase 94180 H, Total Protein 5.9 L, Albumin 2.6 L, Globulin 3.3, Albumin/Globulin Ratio 0.8 L Micro: Microbiology 04/12/23 11:18 Mucosa - Nasopharyngeal SARS-CoV-2, Influenza & RSV (PCR) - Final Influenzae A Cardiology Labs/Tests 04/12/23 11:00: WBC 8.8, RBC 4.08 L, Hgb 13.6, Hct 41.1, MCV 100.7 H, MCH 33.3 H, MCHC 33.1, Plt Count 123 L, MPV 9.8, Immature Gran % (Auto) 0.300, Neut % (Auto) 84.0 H, Lymph % (Auto) 6.2 L, Barron % (Auto) 9.4, Eos % (Auto) 0.0, Baso % (Auto) 0.1, Absolute Neuts (auto) 7.4, Nucleated RBC % 0, PT Cancelled 04/12/23 11:00: PT 15.0 H, INR Cancelled 04/12/23 11:00: INR 1.2, APTT Cancelled 04/12/23 11:00: APTT 31.7, Sodium 141, Potassium 4.0, Chloride 112 H, Carbon Dioxide 18.0 L, Anion Gap 11, BUN 69 H, Creatinine 3.27 H, Est GFR (MDRD) Af Amer 24 L, Est GFR (MDRD) Non-Af 20 L, BUN/Creatinine Ratio 21.1 H, Glucose 93, Hemoglobin A1c 5.6, Lactic Acid 2.3 H*, Calcium 8.7, Total Bilirubin 0.70, Triglycerides 100, Cholesterol 103, LDL Cholesterol 29, VLDL Cholesterol 20, HDL Cholesterol 54 04/12/23 16:40: Lactic Acid 1.1 04/12/23 20:05: APTT > 200.0 H* 04/13/23 05:00: WBC 7.7, RBC 3.53 L, Hgb 11.9 L, Hct 36.3 L, MCV 102.8 H, MCH 33.7 H, MCHC 32.8, Plt Count 118 L, MPV 9.6, Immature Gran % (Auto) 0.600, Neut % (Auto) 86.6 H, Lymph % (Auto) 6.7 L, Barron % (Auto) 6.0, Eos % (Auto) 0.0, Baso % (Auto) 0.1, Absolute Neuts (auto) 6.7, Nucleated RBC % 0, APTT 247.2 H*, Sodium 142, Potassium 4.0, Chloride 116 H, Carbon Dioxide 20.0 L, Anion Gap 6, BUN 85 H, Creatinine 3.20 H, Est GFR (MDRD) Af Amer 24 L, Est GFR (MDRD) Non-Af 20 L, BUN/Creatinine Ratio 26.6 H, Glucose 84, Calcium 7.7 L, Total Bilirubin 0.40 Rhythm: EKG: ECHO: Stress Test: Cardiac Cath: PCI: CT Surgery: Holter monitor: EPS: PPM: CXR: Chest CT Scan: Radiography Diagnostic Testing: Radiology Impression Brain CT 04/12/23 11:12 IMPRESSION: Chronic involutional changes of the brain. 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 Pansinusitis. Electronically Signed: Hang Wood MD at 12:24 EST Reading Location ID and State: [id number] / [employer] , Service support , Cervical Spine CT 04/12/23 11:12 IMPRESSION: Multilevel degenerative changes, as described above. Electronically Signed: Hang Wood MD at 12:29 EST , Lumbar Spine CT 04/12/23 11:12 IMPRESSION: Multilevel degenerative changes, as described above. Electronically Signed: Hang Wood MD at 12:23 EST , Thoracic Spine CT 04/12/23 11:12 IMPRESSION: Multilevel degenerative changes. No vertebral fracture is seen. Findings suggestive of bibasilar atelectasis. Electronically Signed: Hang Wood MD at 12:25 EST , Chest X-Ray 04/12/23 12:10 IMPRESSION: No acute abnormality is seen. Electronically Signed: Hang Wood MD at 12:30 EST , Echocardiogram 04/12/23 13:39 Interpretation Summary The estimated ejection fraction is 70 %. Unable to assess diastolic dysfunction. Ordering Physician: Tesha Layne Performed By: Juan M De La Garza RCS Physical Exam Const oriented x3 Constitutional Narrative: His voice is hoarse. HEENT normocephalic Eyes EOMs intact bilaterally Neck Neck Narrative: Thick neck no JVD appreciated. Chest inspection of chest normal Resp normal respiratory effort Resp Narrative: Frequent cough with deep respiration. Cardio regular rate, regular rhythm, S1 normal heart sound, S2 normal heart sound, no murmurs, no rub and no gallops Extremity normal to inspection Skin no rashes or lesions noted Neuro Neuro Narrative: Alert and oriented x 3 Psych mental status grossly normal Assessment & Plan Assessment/Plan (1) Cardiac enzymes elevated: PLAN: The patient's enzymes are probably related to his general metabolic state. The 2D echocardiogram shows normal LV function with a systolic ejection fraction of 70%. There is no significant valvular heart disease and no chamber enlargement. From a cardiovascular standpoint I do not feel that any further intervention is indicated. The patient should be continued on his home cardiac medications at discharge. (2) Hypertension: QUALIFIERS: Hypertension type: primary hypertension Qualified Code(s): I10 - Essential (primary) hypertension PLAN: Blood pressure is adequate control given his overall general situation. He should be continued on his home meds as indicated pending his renal function at discharge. (3) Rhabdomyolysis: QUALIFIERS: Rhabdomyolysis type: traumatic Encounter type: initial encounter Qualified Code(s): T79.6XXA - Traumatic ischemia of muscle, initial encounter PLAN: The patient's creatinine remains elevated he is continuing to be sore. He is continue to be hydrated. From a cardiovascular standpoint no further intervention is indicated at this point in time. His his chronic cardiovascular medications should be reinstituted as tolerated pending the resolution of the rhabdomyolysis. PLAN: Plan Cardiology will sign off at this time. If further help is needed please call. Charges/Coding Visit Charges Inpatient E&M: 71357 Subs Hosp L2
[2023-04-13] MEDS: Acetaminophen 325 MG Tablet 650 MG PO ×2 (11:08→17:39)
[2023-04-13] MEDS: Aspirin 81 MG TAB.CHEW PO (11:09)
[2023-04-13] MEDS: Memantine Hydrochloride 5 MG Tablet PO ×2 (11:09→19:51)
[2023-04-13] MEDS: Allopurinol 300 MG Tablet PO (11:09)
[2023-04-13] MEDS: Tamsulosin HCl 0.4 MG Capsule 0.400000000000000022 MG PO (11:09)
[2023-04-13] MEDS: Atorvastatin Calcium 20 MG Tablet PO (11:09)
[2023-04-13] MEDS: Oseltamivir Phosphate 30 MG Capsule PO (11:09)
[2023-04-13] MEDS: Timolol 0.5% 5ML OPTH.BTL 1 DRP OPHTHALMIC ×2 (11:13→19:51)
--- NOTE | 2023-04-13 11:36 | PN_ITS ---
Subjective Subjective Patient seen and examined. He was lethargic but able to communicate. He was alert and oriented x 3. He had no active complaints and had an uneventful night. REview of systems is otherwise negative. His BP is running low today, in the 90s systolic. Objective Data Objective Data Vital Signs: Vital Signs Temp Pulse Resp BP Pulse Ox O2 Del Method O2 Flow Rate 97.7 F L 58 L 18 95/52 L 97 Nasal Cannula 2 04/13/23 11:06 04/13/23 11:06 04/13/23 11:06 04/13/23 11:06 04/13/23 11:06 04/13/23 11:06 04/13/23 11:06 Oxygen Flow Rate (L/min) 2 Oxygen Delivery Method Nasal Cannula Weight: 197 lb 5.019 oz Body Mass Index (BMI) 29.9 Intake & Output: Intake and Output for Last 24 Hours 04/11/23 04/12/23 04/13/23 23:59 23:59 23:59 Intake Total 3870.17 / 3870.17 1367.02 / 1367.02 Output Total 400 / 400 500 / 500 Balance 3470.17 / 3470.17 867.02 / 867.02 Lab / Micro Data 04/13/23 05:00 04/13/23 05:00 Labs: Laboratory Results - last 24 hr 04/12/23 11:00: WBC 8.8, RBC 4.08 L, Hgb 13.6, Hct 41.1, MCV 100.7 H, MCH 33.3 H , MCHC 33.1, RDW Std Deviation 51.8 H, RDW Coeff of Ese 14.1, Plt Count 123 L, MPV 9.8, Immature Gran % (Auto) 0.300, Neut % (Auto) 84.0 H, Lymph % (Auto) 6.2 L, [place] % (Auto) 9.4, Eos % (Auto) 0.0, Baso % (Auto) 0.1, Absolute Neuts (auto) 7.4, Absolute Lymphs (auto) 0.54 L, Nucleated RBC % 0, Differential Comment COMM ENT, PT Cancelled 04/12/23 11:00: PT 15.0 H, INR Cancelled 04/12/23 11:00: INR 1.2, APTT Cancelled 04/12/23 11:00: APTT 31.7, Sodium 141, Potassium 4.0, Chloride 112 H, Carbon Dioxide 18.0 L, Anion Gap 11, BUN 69 H, Creatinine 3.27 H, Estim Creat Clear Calc 20.51, Est GFR (MDRD) Af Amer 24 L, Est GFR (MDRD) Non-Af 20 L, BUN/Creatinine Ratio 21.1 H, Glucose 93, Hemoglobin A1c 5.6, Lactic Acid 2.3 H*, Calcium 8.7, Total Bilirubin 0.70, AST 576 H, ALT 162 H, Alkaline Phosphatase 85, Total Creatine Kinase 38334 H, Troponin I High Sens 3604 H*, Total Protein 7.3, Albumin 3.1 L, Globulin 4.2, Albumin/Globulin Ratio 0.7 L, Triglycerides 100, Cholesterol 103, LDL Cholesterol 29, VLDL Cholesterol 20, HDL Cholesterol 54, Lipase 42 04/12/23 14:30: Troponin I High Sens 3095 H* 04/12/23 16:40: Lactic Acid 1.1, Troponin I High Sens 2612 H* 04/12/23 20:05: APTT > 200.0 H* 04/13/23 05:00: WBC 7.7, RBC 3.53 L, Hgb 11.9 L, Hct 36.3 L, MCV 102.8 H, MCH 33.7 H, MCHC 32.8, RDW Std Deviation 54.4 H, RDW Coeff of Ese 14.3, Plt Count 118 L, MPV 9.6, Immature Gran % (Auto) 0.600, Neut % (Auto) 86.6 H, Lymph % (Auto) 6.7 L, [place] % (Auto) 6.0, Eos % (Auto) 0.0, Baso % (Auto) 0.1, Absolute Neuts (auto) 6.7, Absolute Lymphs (auto) 0.52 L, Nucleated RBC % 0, Differential Comment SCANNED, APTT 247.2 H*, Sodium 142, Potassium 4.0, Chloride 116 H, Carbon Dioxide 20.0 L, Anion Gap 6, BUN 85 H, Creatinine 3.20 H, Estim Creat Clear Calc 20.68, Est GFR (MDRD) Af Amer 24 L, Est GFR (MDRD) Non-Af 20 L, BUN/Creatinine Ratio 26.6 H, Glucose 84, Calcium 7.7 L, Total Bilirubin 0.40, AST 551 H, ALT 175 H, Alkaline Phosphatase 69, Total Creatine Kinase 19632 H, Total Protein 5.9 L, Albumin 2.6 L, Globulin 3.3, Albumin/Globulin Ratio 0.8 L Micro: Microbiology 04/12/23 11:18 Mucosa - Nasopharyngeal SARS-CoV-2, Influenza & RSV (PCR) - Final Influenzae A Radiography Diagnostic Testing: Radiology Impression Brain CT 04/12/23 11:12 IMPRESSION: Chronic involutional changes of the brain. 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 Pansinusitis. Electronically Signed: Hang Wood MD at 12:24 EST , Cervical Spine CT 04/12/23 11:12 IMPRESSION: Multilevel degenerative changes, as described above. Electronically Signed: Hang Wood MD at 12:29 EST , Lumbar Spine CT 04/12/23 11:12 IMPRESSION: Multilevel degenerative changes, as described above. Electronically Signed: Hang Wood MD at 12:23 EST , Thoracic Spine CT 04/12/23 11:12 IMPRESSION: Multilevel degenerative changes. No vertebral fracture is seen. Findings suggestive of bibasilar atelectasis. Electronically Signed: Hang Wood MD at 12:25 EST , Chest X-Ray 04/12/23 12:10 IMPRESSION: No acute abnormality is seen. Electronically Signed: Hang Wood MD at 12:30 EST , Echocardiogram 04/12/23 13:39 Interpretation Summary The estimated ejection fraction is 70 %. Unable to assess diastolic dysfunction. Ordering Physician: Tesha Layne Performed By: Juan M De La Garza RCS Physical Exam Const alert and oriented x3 Constitutional Narrative: frail, weak General Appearance: cooperative HEENT normocephalic and head/scalp atraumatic Eyes EOMs intact bilaterally Neck no lymphadenopathy and supple Lymph Lymphatic: no lymphadenopathy noted and no lymphedema noted Resp normal respiratory effort, normal air movement and clear to auscultation bilater ally Cardio regular rate, regular rhythm, S1 normal heart sound, S2 normal heart sound and no murmurs GI normal to inspection, nondistended, normoactive bowel sounds, soft to palpation, non-tender and non-distended Extremity normal capillary refill, no clubbing, cyanosis or edema and no calf tenderness General Extremity: no tenderness to palpation of joints or extremities Skin General Skin Exam: no breakdown Neuro CN's II-XII intact bilaterally, no focal motor deficits, no sensory deficits noted and deep tendon reflexes 2+ bilaterally Motor Exam: strength 5/5 throughout and general weakness Psych thought process normal and cooperative Psych Narrative: lethargic Mood & Affect: flat affect Assessment & Plan Assessment/Plan (1) Cardiac enzymes elevated: (2) Rhabdomyolysis: QUALIFIERS: Encounter type: initial encounter Rhabdomyolysis type: traumatic Qualified Code(s): T79.6XXA - Traumatic ischemia of muscle, initial encounter PLAN: Plan #Rhabdomyolysis due to mechanical fall * Patient states he fell on the floor. He does not member whether he passed out or not but knows he was on the floor at least overnight. CPK is more than 28,000. * Creatinine is also elevated. * Hydrate aggressively with IV fluid normal saline at 150 cc/[place] [address] [place] [address] * PT OT on board. Fall precautions. * continue fluid hydration * #Non-STEMI * Likely a type II non-STEMI in light of DIAN and patient's mechanical fall. Initial troponin was 3604 and trended down to 3095 ten 2612. * EKG showed no acute ST changes. * cardiology reviewed him and thinks it is a type 2 nonstemi due to DIAN and rhabdomyolysis * 2D echo showed EF of 70%, unable to assess diastolic dyfsunction; no regional wall motion abnormalities seen. * cardiology on board. * P.o. aspirin 81 mg daily. Check lipid panel. * #DIAN * CR has trended down to 3.2 from 3.27 on admission * Baseline creatinine not known. Likely prerenal due to patient being on the floor for about 12 hours and also CPK being elevated in setting of rhabdomyolysis. * Hydrate aggressively with IV fluids. * Trend creatinine. If creatinine does not improve, consult nephrology. * insert conteh catheter * get nephrology consult if Cr is not improving. * check Feurea and renal USG * #Influenza A infection: on 2L of oxygen by nasal canula. on tamiflu, renally adjusted dose. # Hypotension: Blood pressure running in the 90s systolic today. hold BP meds and continue hydration with iVF. * #History of CAD s/p CABG: On aspirin and statin. #Dementia: On donepezil #Hypertension: Hold losartan and hydrochlorothiazide on account of DIAN and rhabdomyolysis. IV hydralazine as needed. Also on metoprolol. #BPH: On Flomax DVT prophylaxis: Heparin CODE STATUS: Full code * Charges/Coding Visit Charges Inpatient E&M: 95610 Subs Hosp L3
--- NOTE | 2023-04-13 11:46 | US_ITS ---
PROCEDURE: RENAL ULTRASOUND - COMPLETE REASON FOR EXAM: Male, 78 years old. Acute kidney injury TECHNIQUE: Ultrasound evaluation of the bilateral kidneys was performed with real-time ultrasonography and static grayscale imaging. COMPARISON: None. FINDINGS: RIGHT KIDNEY: Normal location of the right kidney which is normal in size. The right kidney measures 10.4 x 5.3 x 6.2 cm. There is a normal cortex of the right kidney. The renal cortex measures 1.5 cm. There is a cyst in right kidney measuring about 4.7 cm. Multiple calcifications are seen right kidney, the largest measures about 1.7 cm consistent with nonobstructing stones. There is no right hydronephrosis. DISTAL RIGHT URETER: There is non-visualization of the distal right ureter. There is no demonstrated right ureterovesical junction calculus. There is no demonstrated right ureteral jet. LEFT KIDNEY: Normal location of the left kidney which is normal in size. The left kidney measures 9.5 x 5.1 x 5.2 cm. There is a normal cortex of the left kidney. The renal cortex measures 1.8 cm. There is no left renal mass or cyst. Multiple calcifications/nonobstructing stones are seen in the left kidney, the largest measures about 1 cm. There is no left hydronephrosis. DISTAL LEFT URETER: There is non-visualization of the distal left ureter. There is no demonstrated left ureterovesical junction calculus. There is no demonstrated left ureteral jet. BLADDER: The bladder is empty. There is a Kim catheter in the bladder. US/Kidney and Bladder IMPRESSION: 1. No evidence of hydronephrosis. 2. Multiple bilateral nonobstructing renal stones. 3. Right renal cyst. Electronically Signed: Reynold Fischer MD at 15:36 EST ,
[2023-04-13] MEDS: 0.9% Normal Saline (1000mL) 1,000 ML 125 ML IV (11:52)
[2023-04-13] MEDS: Ensure Plus High Protein 120 ML LIQUID PO ×2 (11:52→16:19)
--- NOTE | 2023-04-13 12:00 | CASEMGMT ---
Addendum entered by Bryan Bailey 04/13/23 21:38: Per registration, pt's current insurance plan is [facility]. Original Note: RN?CM?FILAMENT MAKER?CM?to room to meet with patient for initial transition planning/care coordination?assessment.?RN?CM?introduced self and role at [facility].? Pt voices understanding and consents to?assessment?at this time.? Pt sitting up in chair.? Pt is A/O at this time but forgetful and asked HANNA CM to call his . Per , pt does have dementia. Some information provided by pt and then HANNA CM called pt's to obtain further info/clarification while RN CM in room w/pt. was just in the ED on Sun and was diagnosed w/the flu. She states she is still not feeling well and having fevers. She does have a friend, who is a retired nurse, and has been checking on her and assisting w/getting meds/supplies for her. Care providers, pharmacy, and demographics verified/updated at this time. PCP: Dr Julio Mera Specialists: Pt was seeing a neurologist for dementia-related symptoms per , but does not currently seeing him. Dr Mera is following for this. Per , pt does not see other specialits. [facility]erred [facility]acy[facility] Insurance: [employer] Plan Prescription Benefit:?yes Living Will/HPOA:?Pt states he was not sure if he had these. states he has both LW and HCPOA, who is his . LNOK: , Suzanne Box. She goes by Lora . Pt has 2 daughters and 1 son. Dtr, Gisselle, lives in [place]. Dtr, Griselda Box, lives in [place]. Son, Abi Box, lives in [place]. Pt had another son who has . Living Arrangements: Pt lives w/his in one-story home w/basement and ramp entrance. Pt states he is independent w/ADL's and they share home mgnt tasks. Transportation:?Pt and both drive. DME: ? Pt has a cane and walker. states he does not use these, although she does place the walker in front of pt and encourages him to use it. Pt has a BIPAP and they get supplies for it from [employer]. Pt states they have a shower chair, but not sure if it would fit in the bathtub. HHC/SNF: No hx of SNF. Pt states he has had HHC in the past. Pt states if therapy recommends SNF, that he would think about it. states if SNF is recommended, then she is highly in favor of this, as she is unable to help take care of pt, not only d/t current illness/flu, but she states she is not able to physically care for pt even at her baseline d/t her own medical issues. also states pt has fallen about 4 times this past week. She was made aware if therapy recommends SNF, a list of of SNF's that are in network w/pt's insurance can be provided for them to review and to choose preferences. She voices understanding. Zulay MEDEROS, and FURRIER APPRENTICE Gisselle CANALES, made aware of above. Questions answered/info provided. and pt deny having other questions/concerns at this time. PLAN:??TBD by progress w/therapy and recommendations. Anticipate pt will need SNF. Sarah BSN?RN?CM
[2023-04-13 14:05] LABS: Partial Thromboplast Time 105.1 Seconds (24.1-36.2)
--- NOTE | 2023-04-13 15:50 | RAD_ITS ---
STUDY: X-RAY - MANDIBLE (COMPLETE) REASON FOR EXAM: Male, 78 years old. swelling -- right TECHNIQUE: 5 view(s) of the mandible were obtained. COMPARISON: None. FINDINGS: Normal mandible. Normal visualized right temporomandibular joint. Normal visualized left temporomandibular joint. The remaining visualized osseous structures are normal. The soft tissue structures are unremarkable. RAD/Mandible Min 4 Views IMPRESSION: No demonstrated fracture or suspicious osseous lesion Electronically Signed: Lucio Krishna MD at 16:09 EST ,
[2023-04-13] MEDS: Donepezil HCl 10 MG Tablet PO (19:51)
[2023-04-13] MEDS: Heparin Injection (Vial) 5,000 UNIT/ML VIAL 5000 UNIT SC (19:51)
[2023-04-13] MEDS: 0.9% Normal Saline (1000mL) 1,000 ML 200 ML IV (20:05)
[2023-04-14] VITALS (7 sets, daily range): BP systolic 112–136; BP diastolic 54–86; PULSE 68–86; RESP 18–20; TEMP 36.2–37.8; O2SAT 94–97
[2023-04-14] MEDS: oxyCODONE 5 MG Tablet PO ×3 (00:56→19:59)
[2023-04-14] MEDS: 0.9% Normal Saline (1000mL) 1,000 ML 200 ML IV ×2 (00:58→06:28)
--- NOTE | 2023-04-14 01:39 | CPS ---
Pt set up on home cpap. it has water for humidity and cpap is on.
[2023-04-14] MEDS: Heparin Injection (Vial) 5,000 UNIT/ML VIAL 5000 UNIT SC ×2 (06:26→19:58)
[2023-04-14] MEDS: Benzonatate 100 MG Capsule PO ×2 (06:43→19:59)
[2023-04-14 08:03] LABS: Absolute Lymphocyte Count 0.48 X10^3/uL (0.83-4.51); Absolute Neutrophil Count 3.5 X10^3/uL (2.0-7.7); Basophil# 0.01 X10^3/uL; Basophil% 0.2 % (0-1); Hematocrit 31.3 % (40-54); Hemoglobin 10.1 g/dL (13.0-16.5); Lymphocyte # 0.48 X10^3/ul (0.83-4.51); Mean Corp Hgb Conc 32.3 g/dL (32-36); Mean Corpuscular Hgb 33.9 pg (27.0-32.0); Mean Platelet Vol. 9.8 fl (6.2-12.0); Monocyte% 6.9 % (0-10); NRBC Flagged by Analyzer 0 % (0-5); Neutrophil # 3.54 X10^3/uL (2.7-7.7); Neutrophil % 81.4 % (47-70); POSITIVE DIFFERENTIAL YES; Platelet Count 100 K/mm3 (150-450); RBC Distribution Width CV 14.6 % (11.6-14.6); RBC Distribution Width SD 56.8 fl (35.1-43.9); Red Blood Count 2.98 M/mm3 (4.6-6.2); White Blood Count 4.4 K/mm3 (4.4-11.0)
[2023-04-14 08:05] LABS: Differential Indicated SCAN CRITERIA MET
[2023-04-14 08:22] LABS: ALB/GLOB Ratio 0.7 RATIO (0.9-2.4); AST(SGOT) 361 U/L (15-37); Alanine Aminotransfer ALT/SGPT 147 U/L (16-61); Albumin, Serum 2.3 g/dL (3.2-5.0); Alkaline Phosphatase 63 U/L (45-117); Anion Gap 3 (5-15); BUN 78 mg/dL (7-18); BUN/Creat Ratio 30.8 RATIO (10-20); Calcium,Total 7.9 mg/dL (8.5-10.1); Chloride 122 mmol/L (98-107); Creatinine, Serum 2.53 mg/dL (0.70-1.30); EST Glomerular Filtration Rate 26 mL/min (>60); Est Glom Filt Rate - Afr Amer 32 mL/min (>60); Estimated Creatinine Clearance 26.15 ml/min; Globulin 3.3 g/dL (2.2-4.2); Glucose 100 mg/dL (74-106); Potassium 4.1 mmol/L (3.5-5.1); Protein, Total 5.6 g/dL (6.4-8.2); Sodium Level 145 mmol/L (136-145)
[2023-04-14] MEDS: Tamsulosin HCl 0.4 MG Capsule 0.400000000000000022 MG PO (08:41)
[2023-04-14] MEDS: Oseltamivir Phosphate 30 MG Capsule PO (08:41)
[2023-04-14] MEDS: Aspirin 81 MG TAB.CHEW PO (08:41)
[2023-04-14] MEDS: Memantine Hydrochloride 5 MG Tablet PO ×2 (08:41→19:59)
[2023-04-14] MEDS: Ensure Plus High Protein 120 ML LIQUID PO ×3 (08:41→16:28)
[2023-04-14] MEDS: Atorvastatin Calcium 20 MG Tablet PO (08:41)
[2023-04-14] MEDS: Allopurinol 300 MG Tablet PO (08:41)
[2023-04-14] MEDS: Acetaminophen 325 MG Tablet 650 MG PO (08:41)
[2023-04-14 09:03] LABS: CPK Total, Creatine Kinase 11513 U/L (39-308)
--- NOTE | 2023-04-14 10:01 | PN_ITS ---
Subjective Subjective Patient seen and examined. He complained of a cough. He also has a soft tissue swelling along his right jaw. He has no other complaints. Review of systems is otherwise negative. Objective Data Objective Data Vital Signs: Vital Signs Temp Pulse Resp BP Pulse Ox O2 Del Method O2 Flow Rate 98.8 F 86 20 H 136/54 H 97 Nasal Cannula 2 04/14/23 08:30 04/14/23 08:30 04/14/23 08:30 04/14/23 08:30 04/14/23 08:40 04/14/23 08:40 04/14/23 08:40 Oxygen Flow Rate (L/min) 2 Oxygen Delivery Method Nasal Cannula Weight: 197 lb 5.019 oz Body Mass Index (BMI) 29.9 Intake & Output: Intake and Output for Last 24 Hours 04/12/23 04/13/23 04/14/23 23:59 23:59 23:59 Intake Total 3870.17 / 3870.17 3959.11 / 3959.11 2440.00 / 2440.00 Output Total 400 / 400 1450 / 1450 700 / 700 Balance 3470.17 / 3470.17 2509.11 / 2509.11 1740.00 / 1740.00 Medical Nutrition Assessment Dietitian: Malnutrition Criteria Met Start: 04/13/23 11:51 Freq: Status: Active Protocol: Document 04/13/23 11:51 SLA (Rec: 04/13/23 11:51 [facility] Desktop) Nutrition Malnutrition Evidence of Malnutrition Exists Yes Malnutrition (severe): Acute Illness/Injury Evidenced By Suboptimal Energy Intake ( Severe),Weight Loss (Severe) Clinical Problem Acute Disease or Injury Related Malnutrition Etiology related to acute illness and inadequate energy intake Signs/Symptoms as evidenced by pt po intake meeting <50% of est nutritional needs and 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 Lab / Micro Data 04/14/23 07:24 04/14/23 07:24 Labs: Laboratory Results - last 24 hr 04/13/23 13:30: APTT 105.1 H* 04/14/23 07:24: WBC 4.4, RBC 2.98 L, Hgb 10.1 L, Hct 31.3 L, MCV 105.0 H, MCH 33.9 H, MCHC 32.3, RDW Std Deviation 56.8 H, RDW Coeff of Ese 14.6, Plt Count 100 L, MPV 9.8, Immature Gran % (Auto) 0.500, Neut % (Auto) 81.4 H, Lymph % (Auto) 11.0 L, [place] % (Auto) 6.9, Eos % (Auto) 0.0, Baso % (Auto) 0.2, Absolute Neuts (auto) 3.5, Absolute Lymphs (auto) 0.48 L, Nucleated RBC % 0, Sodium 145, Potassium 4.1, Chloride 122 H, Carbon Dioxide 20.0 L, Anion Gap 3 L, BUN 78 H, Creatinine 2.53 H, Estim Creat Clear Calc 26.15, Est GFR (MDRD) Af Amer 32 L, Est GFR (MDRD) Non-Af 26 L, BUN/Creatinine Ratio 30.8 H, Glucose 100, Calcium 7.9 L, Total Bilirubin 0.40, AST 361 H, ALT 147 H, Alkaline Phosphatase 63, Total Creatine Kinase 72726 H, Total Protein 5.6 L, Albumin 2.3 L, Globulin 3.3, Albumin/Globulin Ratio 0.7 L Micro: Microbiology 04/12/23 11:18 Mucosa - Nasopharyngeal SARS-CoV-2, Influenza & RSV (PCR) - Final Influenzae A Radiography Diagnostic Testing: Radiology Impression Renal Ultrasound 04/13/23 11:46 IMPRESSION: 1. No evidence of hydronephrosis. 2. Multiple bilateral nonobstructing renal stones. 3. Right renal cyst. Electronically Signed: Reynold Fischer MD at 15:36 EST , Mandible X-Ray 04/13/23 15:50 IMPRESSION: No demonstrated fracture or suspicious osseous lesion Electronically Signed: Lucio Krishna MD at 16:09 EST , Physical Exam Const alert, oriented x3 and no apparent distress Constitutional Narrative: frail, weak General Appearance: cooperative HEENT normocephalic and head/scalp atraumatic Eyes PERRL and EOMs intact bilaterally Neck no lymphadenopathy and supple Lymph Lymphatic: no lymphadenopathy noted and no lymphedema noted Resp normal respiratory effort, normal air movement and clear to auscultation bilaterally Cardio regular rate, regular rhythm, S1 normal heart sound, S2 normal heart sound and no murmurs GI normal to inspection, nondistended, normoactive bowel sounds, soft to palpation, non-tender and non-distended Extremity normal capillary refill, no clubbing, cyanosis or edema and no calf tenderness General Extremity: no tenderness to palpation of joints or extremities Skin General Skin Exam: no breakdown Neuro CN's II-XII intact bilaterally, no focal motor deficits, no sensory deficits noted and deep tendon reflexes 2+ bilaterally Motor Exam: strength 5/5 throughout and general weakness Psych thought process normal and cooperative Psych Narrative: lethargic Appearance: appropriate Mood & Affect: flat affect Assessment & Plan Assessment/Plan (1) Cardiac enzymes elevated: (2) Rhabdomyolysis: QUALIFIERS: Rhabdomyolysis type: traumatic Encounter type: initial encounter Qualified Code(s): T79.6XXA - Traumatic ischemia of muscle, initial encounter PLAN: Plan #Rhabdomyolysis due to mechanical fall * Patient states he fell on the floor. He does not remember whether he passed out or not but knows he was on the floor at least overnight. CPK is more than 28,000. * Creatinine is also elevated but has trended down to 2.53. * [place] [address] * cut down fluids to 150cc/hr. NS. * PT/OT On board. Fall precautions. * #Non-STEMI * Likely a type II non-STEMI in light of DIAN and patient's mechanical fall. Initial troponin was 3604 and trended down to 3095 then 2612. * EKG showed no acute ST changes. * cardiology reviewed him and thinks it is a type 2 nonstemi due to DIAN and rhabdomyolysis * 2D echo showed EF of 70%, unable to assess diastolic dyfsunction; no regional wall motion abnormalities seen. * cardiology on board. * P.o. aspirin 81 mg daily. * #DIAN * CR has trended down to 2.53 from 3.2 yesterday. * Baseline creatinine not known. Likely prerenal due to patient being on the floor for about 12 hours and also CPK being elevated in setting of rhabdomyolysis. * Hydrate aggressively with IV fluids. * Trend creatinine. * conteh catheter in situ * nephrology consuled; await recs * get nephrology consult if Cr is not improving. * check Feurea and renal USG * #Influenza A infection: on 2L of oxygen by nasal canula. on tamiflu, renally adj usted dose. # Hypotension: Blood pressure running in the 90s systolic today. hold BP meds and continue hydration with iVF. * #History of CAD s/p CABG: On aspirin and statin. #Dementia: On donepezil #Hypertension: Hold losartan and hydrochlorothiazide on account of DIAN and rhabdomyolysis. IV hydralazine as needed. Also on metoprolol. #BPH: On Flomax DVT prophylaxis: Heparin CODE STATUS: Full code *
[2023-04-14] MEDS: Timolol 0.5% 5ML OPTH.BTL 1 DRP OPHTHALMIC ×2 (11:05→19:49)
[2023-04-14 11:13] LABS: Differential Comment SCANNED
--- NOTE | 2023-04-14 12:16 | CT_ITS ---
HISTORY: right jaw swelling -- soft tissue swelling of right jaw.. TECHNIQUE: Helically acquired images were obtained of the neck without contrast. A radiation dose optimization technique was used for this scan. 304 images. COMPARISON: XR prior day, CT cervical spine 04/12/2023. FINDINGS: NASOPHARYNX: Unremarkable. SUPRAHYOID NECK: Thickening of the right sternocleidomastoid muscle with moderate dense subcutaneous stranding in the right face extending into the submandibular and senior marketing coordinator spaces. Unremarkable retropharyngeal space. INFRAHYOID NECK: Moderate dense subcutaneous stranding with thickening of the platysma. Unremarkable larynx, hypopharynx, and supraglottis. THYROID: No focal lesions. SALIVARY GLANDS: Mild hemorrhagic stranding extends to the right parotid and submandibular glands. LYMPH NODES: No cervical or supraclavicular lymphadenopathy. VASCULAR STRUCTURES: Limited evaluation on noncontrast examination. ORBITS: Symmetric contents with bilateral lens resections. PARANASAL SINUSES: Diffuse fluid and mucosal thickening in the paranasal sinuses with mild hyperostosis. MASTOID AIR CELLS: Clear. OSSEOUS STRUCTURES: No acute fracture or dislocation of the facial bones. Degenerative changes of the cervical spine with fusion across the C5-6 and C6-7 intervertebral discs. LUNG APICES: Mild atelectasis in the right lung apex again seen. CT/Soft Tissue Neck without Contr IMPRESSION: Moderate dense stranding in the right face and neck, concerning for hemorrhage and contusion in a patient with a recent history of trauma. Cellulitis considered less likely. No acute facial fracture identified. Pansinusitis. Electronically Signed: Lilly Francois MD at 13:59 EST ,
[2023-04-14] MEDS: 0.9% Saline Lock 10 ML Syringe IV (13:05)
[2023-04-14] MEDS: Lactated Ringers 1,000 ML 125 ML IV ×2 (13:09→19:49)
--- NOTE | 2023-04-14 13:24 | CASEMGMT ---
Social Work SW notified that patient's is open to SNF discussion. also has the flu and will not be coming into the hospital while ill. SW called Idalia Box, patient's . Idalia reports she is unable to assist patient if discharged home. reports patient has had multiple falls recently that she was unable to assist patient or help him up. reports patient would need more assistance than she can provide and he has dementia. reports a [facility]. declined SNF list. [facility]. SW referred patient to these facilities via [facility]. Pt will need acceptance and precert. Leah Dumont RN OR LPN, BIOLOGY ADJUNCT INSTRUCTOR
[2023-04-14] MEDS: Donepezil HCl 10 MG Tablet PO (19:59)
[2023-04-15] VITALS (9 sets, daily range): BP systolic 118–144; BP diastolic 50–54; PULSE 64–85; RESP 18–20; TEMP 36.2–36.9; O2SAT 91–97
[2023-04-15] MEDS: Lactated Ringers 1,000 ML 125 ML IV ×2 (03:10→10:56)
[2023-04-15] MEDS: Benzonatate 100 MG Capsule PO (03:12)
[2023-04-15] MEDS: Albuterol 2.5 MG/3 ML VIAL.NEB. INHALATION ×2 (04:15→20:45)
[2023-04-15 05:20] LABS: Absolute Lymphocyte Count 0.52 X10^3/uL (0.83-4.51); Absolute Neutrophil Count 2.7 X10^3/uL (2.0-7.7); Eosinophil# 0.01 X10^3/uL; Eosinophils% 0.3 % (0-5); Hemoglobin 8.5 g/dL (13.0-16.5); Lymphocyte # 0.52 X10^3/ul (0.83-4.51); Lymphocyte % 14.9 % (19-41); Mean Corp Hgb Conc 31.5 g/dL (32-36); Mean Corpuscular Hgb 33.9 pg (27.0-32.0); Mean Corpuscular Volume 107.6 fL (80-94); Mean Platelet Vol. 10.2 fl (6.2-12.0); Monocyte# 0.25 X10^3/uL; Monocyte% 7.2 % (0-10); NRBC Flagged by Analyzer 0 % (0-5); Neutrophil # 2.68 X10^3/uL (2.7-7.7); POSITIVE COUNT YES; POSITIVE DIFFERENTIAL YES; Platelet Count 84 K/mm3 (150-450); RBC Distribution Width CV 14.6 % (11.6-14.6); RBC Distribution Width SD 58.4 fl (35.1-43.9); Red Blood Count 2.51 M/mm3 (4.6-6.2); White Blood Count 3.5 K/mm3 (4.4-11.0)
[2023-04-15 05:36] LABS: Differential Indicated SCAN CRITERIA MET
[2023-04-15 05:51] LABS: ALB/GLOB Ratio 0.6 RATIO (0.9-2.4); AST(SGOT) 274 U/L (15-37); Alanine Aminotransfer ALT/SGPT 118 U/L (16-61); Alkaline Phosphatase 59 U/L (45-117); Anion Gap 0 (5-15); BUN 62 mg/dL (7-18); BUN/Creat Ratio 30.2 RATIO (10-20); Calcium,Total 7.8 mg/dL (8.5-10.1); Chloride 123 mmol/L (98-107); Creatinine, Serum 2.05 mg/dL (0.70-1.30); EST Glomerular Filtration Rate 34 mL/min (>60); Est Glom Filt Rate - Afr Amer 41 mL/min (>60); Estimated Creatinine Clearance 32.28 ml/min; Globulin 3.3 g/dL (2.2-4.2); Glucose 100 mg/dL (74-106); Potassium 4.6 mmol/L (3.5-5.1); Protein, Total 5.3 g/dL (6.4-8.2); Sodium Level 144 mmol/L (136-145)
[2023-04-15 06:01] LABS: CPK Total, Creatine Kinase 5877 U/L (39-308)
[2023-04-15] MEDS: Tamsulosin HCl 0.4 MG Capsule 0.400000000000000022 MG PO (08:09)
[2023-04-15] MEDS: Oseltamivir Phosphate 30 MG Capsule PO (08:09)
[2023-04-15] MEDS: Acetaminophen 325 MG Tablet 650 MG PO ×2 (08:09→14:10)
[2023-04-15] MEDS: Atorvastatin Calcium 20 MG Tablet PO (08:09)
[2023-04-15] MEDS: Memantine Hydrochloride 5 MG Tablet PO ×2 (08:09→21:39)
[2023-04-15] MEDS: Aspirin 81 MG TAB.CHEW PO (08:09)
[2023-04-15] MEDS: Ensure Plus High Protein 120 ML LIQUID PO (08:09)
[2023-04-15] MEDS: oxyCODONE 5 MG Tablet PO ×2 (08:10→13:38)
[2023-04-15] MEDS: Allopurinol 300 MG Tablet PO (08:14)
--- NOTE | 2023-04-15 09:42 | CON.PCM.RE_ITS ---
Assessment & Plan Assessment/Plan (1) Rhabdomyolysis: QUALIFIERS: Rhabdomyolysis type: traumatic Encounter type: initial encounter Qualified Code(s): T79.6XXA - Traumatic ischemia of muscle, initial encounter PLAN: Apparently he was found down. On examination no focal muscle compartment tenderness. He does have a right neck hematoma. He complains of generalized muscle pain as diffuse tenderness. Urine is clear. CPK levels are less than 10,000. Typically the risk of kidney injury is lower once CPK level is less than 10,000. Likely can DC IV fluids tomorrow (2) DIAN (acute kidney injury): PLAN: No prior kidney disease according to him. Conteh catheter indwelling with good urine output. Most likely due to rhabdomyolysis. Creatinine is trending down. Overall he feels better but still has significant weakness. HPI Consult Data Date of Consult: 04/15/23 HPI Narrative Reason for Consultation: Acute renal failure, rhabdomyolysis HPI Narrative: CLAUDIO WELLER, is a 78 M who presents to the hospital with generalized weakness. Ongoing events include influenza, non-ST elevation [place], acute renal failure, rhabdomyolysis. Apparently he was very sick, was found down. Unable to tell me how long he was down. Currently complains of diffuse muscle pains, no focal muscle compartment pain. Conteh catheter indwelling with decent urine output. No breathing difficulties. [facility] Medical History (Updated 04/15/23 @ 09:[address] Gagandeep Felder MD) CVA (cerebral vascular accident) Dementia High cholesterol Hypertension Kidney calculi Home Medications albuterol sulfate 90 mcg/actuation aerosol inhaler 2 puff inhalation Q4H PRN wheezing 04/12/23 [History Last Taken Unknown] allopurinol 300 mg tablet 300 mg PO DAILY gout 04/12/23 [History Last Taken 04/11/23] aspirin 81 mg capsule 81 mg PO DAILY heart health 04/12/23 [History Last Taken 04/11/23] atorvastatin 20 mg tablet 20 mg PO DAILY cholesterol 04/12/23 [History Last Taken 04/11/23] benzonatate 100 mg capsule 100 mg PO TID PRN PRN cough 04/12/23 [History Last Taken Unknown] cetirizine 10 mg tablet 10 mg PO DAILY PRN allergy symptoms 04/12/23 [History Last Taken Unknown] donepezil 10 mg tablet 10 mg PO QHS dementia 04/12/23 [History Last Taken 04/11/23] losartan 50 mg-hydrochlorothiazide 12.5 mg tablet 1 tab PO DAILY blood pressure 04/12/23 [History Last Taken 04/11/23] memantine 5 mg tablet 5 mg PO BID dementia 04/12/23 [History Last Taken 04/11/23] methylprednisolone 4 mg tablets in a dose pack 4 mg PO steriod 04/12/23 [History Last Taken Unknown] metoprolol tartrate 25 mg tablet 25 mg PO BID blood pressure 04/12/23 [History Last Taken 04/11/23] tamsulosin 0.4 mg capsule 0.4 mg PO DAILY urination 04/12/23 [History Last Taken 04/11/23] timolol maleate 0.5 % eye drops 1 drp ophthalmic (eye) BID eye health 04/12/23 [History Last Taken 04/11/23] Allergy/AdvReac Type Severity Reaction Status Date / Time No Known Allergies Allergy Verified 04/12/23 11:22 Family History unable to obtain Surgical History (Updated 04/12/23 @ 16:[address] Jack Fuller MD) History of heart artery stent Surgical History unable to obtain Social History Smoking Status: Never smoker ROS ROS Narrative Negative except above Physical Exam Narrative Alert awake oriented x 3 no obvious distress no pallor no icterus no JVD s1s2 no murmurs lungs clear abdomen soft no organomegaly no edema no cyanosis conteh + Medical Records Data Medical Nutrition Assessment Dietitian: Malnutrition Criteria Met Start: 04/13/23 11:51 Freq: Status: Active Protocol: Document 04/13/23 11:51 SLA (Rec: 04/13/23 11:51 SLA Desktop) Nutrition Malnutrition Evidence of Malnutrition Exists Yes Malnutrition (severe): Acute Illness/Injury Evidenced By Suboptimal Energy Intake ( Severe),Weight Loss (Severe) Clinical Problem Acute Disease or Injury Related Malnutrition Etiology related to acute illness and inadequate energy intake Signs/Symptoms as evidenced by pt po intake meeting <50% of est nutritional needs and 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 Lab / Micro Data 04/15/23 04:20 04/15/23 04:20 Labs: Laboratory Results - last 24 hr 04/14/23 07:24: Differential Comment SCANNED 04/15/23 04:20: WBC 3.5 L, RBC 2.51 L, Hgb 8.5 L, Hct 27.0 L, MCV 107.6 H, MCH 33.9 H, MCHC 31.5 L, RDW Std Deviation 58.4 H, RDW Coeff of Ese 14.6, Plt Count 84 L, MPV 10.2, Immature Gran % (Auto) 0.600, Neut % (Auto) 77.0 H, Lymph % (Auto) 14.9 L, [place] % (Auto) 7.2, Eos % (Auto) 0.3, Baso % (Auto) 0.0, Absolute Neuts (auto) 2.7, Absolute Lymphs (auto) 0.52 L, Nucleated RBC % 0, Sodium 144, Potassium 4.6, Chloride 123 H, Carbon Dioxide 21.0, Anion Gap 0 L, BUN 62 H, Creatinine 2.05 H, Estim Creat Clear Calc 32.28, Est GFR (MDRD) Af Amer 41 L, Est GFR (MDRD) Non-Af 34 L, BUN/Creatinine Ratio 30.2 H, Glucose 100, Calcium 7.8 L, Total Bilirubin 0.40, AST 274 H, ALT 118 H, Alkaline Phosphatase 59, Total Creatine Kinase 5877 H, Total Protein 5.3 L, Albumin 2.0 L, Globulin 3.3, Albumin/Globulin Ratio 0.6 L Micro: Microbiology 04/12/23 11:00 Blood Culture (Wb) - Right Wrist Blood Culture - Preliminary No growth in 48 hours. 04/12/23 11:05 Blood Culture (Wb) - Right Hand Blood Culture - Preliminary No growth in 48 hours. Imaging Radiology Impression Soft Tissue Neck CT 04/14/23 12:16 IMPRESSION: Moderate dense stranding in the right face and neck, concerning for hemorrhage and contusion in a patient with a recent history of trauma. Cellulitis considered less likely. No acute facial fracture identified. Pansinusitis. Electronically Signed: Lilly Francois MD at 13:59 EST ,
--- NOTE | 2023-04-15 09:43 | PN.CARD_ITS ---
Subjective Subjective The patient's telemetry showed short burst of paroxysmal supraventricular tachycardia. There were P waves visible this is not consistent with atrial fibrillation. The patient is sitting up in the chair this morning looks much better than he has in the last 48 hours. He denies any chest symptoms denies any signs that would be consistent with a coronary ischemic event. Objective Data Vital Signs: Vital Signs Temp Pulse Resp BP Pulse Ox O2 Del Method O2 Flow Rate 98.4 F 78 20 H 127/50 H 96 Nasal Cannula 2 04/15/23 08:07 04/15/23 08:07 04/15/23 08:07 04/15/23 08:07 04/15/23 08:07 04/15/23 08:15 04/15/23 08:15 Oxygen Flow Rate (L/min) 2 Oxygen Delivery Method Nasal Cannula Weight: 197 lb 5.019 oz Body Mass Index (BMI) 29.9 Intake & Output: Intake and Output for Last 24 Hours 04/13/23 04/14/23 04/15/23 23:59 23:59 23:59 Intake Total 3959.11 / 3959.11 4630.00 / 4750.00 1038.75 / 1038.75 Output Total 1450 / 1450 1625 / 2025 1000 / 1000 Balance 2509.11 / 2509.11 3005.00 / 2725.00 38.75 / 38.75 Lab / Micro Data 04/15/23 04:20 04/15/23 04:20 Labs: Laboratory Results - last 24 hr 04/14/23 07:24: Differential Comment SCANNED 04/15/23 04:20: WBC 3.5 L, RBC 2.51 L, Hgb 8.5 L, Hct 27.0 L, MCV 107.6 H, MCH 33.9 H, MCHC 31.5 L, RDW Std Deviation 58.4 H, RDW Coeff of Ese 14.6, Plt Count 84 L, MPV 10.2, Immature Gran % (Auto) 0.600, Neut % (Auto) 77.0 H, Lymph % (Auto) 14.9 L, [place] % (Auto) 7.2, Eos % (Auto) 0.3, Baso % (Auto) 0.0, Absolute Neuts (auto) 2.7, Absolute Lymphs (auto) 0.52 L, Nucleated RBC % 0, Sodium 144, Potassium 4.6, Chloride 123 H, Carbon Dioxide 21.0, Anion Gap 0 L, BUN 62 H, Creatinine 2.05 H, Estim Creat Clear Calc 32.28, Est GFR (MDRD) Af Amer 41 L, Est GFR (MDRD) Non-Af 34 L, BUN/Creatinine Ratio 30.2 H, Glucose 100, Calcium 7.8 L, Total Bilirubin 0.40, AST 274 H, ALT 118 H, Alkaline Phosphatase 59, Total Creatine Kinase 5877 H, Total Protein 5.3 L, Albumin 2.0 L, Globulin 3.3, Albumin/Globulin Ratio 0.6 L Micro: Microbiology 04/12/23 11:00 Blood Culture (Wb) - Right Wrist Blood Culture - Preliminary No growth in 48 hours. 04/12/23 11:05 Blood Culture (Wb) - Right Hand Blood Culture - Preliminary No growth in 48 hours. Rhythm Strip Rhythm Strip: PSVT otherwise normal sinus rhythm Cardiology Labs/Tests 04/15/23 04:20: WBC 3.5 L, RBC 2.51 L, Hgb 8.5 L, Hct 27.0 L, MCV 107.6 H, MCH 33.9 H, MCHC 31.5 L, Plt Count 84 L, MPV 10.2, Immature Gran % (Auto) 0.600, Neut % (Auto) 77.0 H, Lymph % (Auto) 14.9 L, [place] % (Auto) 7.2, Eos % (Auto) 0.3, Baso % (Auto) 0.0, Absolute Neuts (auto) 2.7, Nucleated RBC % 0, Sodium 144, Potassium 4.6, Chloride 123 H, Carbon Dioxide 21.0, Anion Gap 0 L, BUN 62 H , Creatinine 2.05 H, Est GFR (MDRD) Af Amer 41 L, Est GFR (MDRD) Non-Af 34 L, BUN/Creatinine Ratio 30.2 H, Glucose 100, Calcium 7.8 L, Total Bilirubin 0.40 Rhythm: EKG: ECHO: Stress Test: Cardiac Cath: PCI: CT Surgery: Holter monitor: EPS: PPM: CXR: Chest CT Scan: Radiography Diagnostic Testing: Radiology Impression Soft Tissue Neck CT 04/14/23 12:16 IMPRESSION: Moderate dense stranding in the right face and neck, concerning for hemorrhage and contusion in a patient with a recent history of trauma. Cellulitis considered less likely. No acute facial fracture identified. Pansinusitis. Electronically Signed: Lilly Francois MD at 13:59 EST , Physical Exam Const oriented x3 HEENT normocephalic Eyes EOMs intact bilaterally Neck Neck Narrative: Extensive ecchymosis and swelling noted along the right supraclavicular area and up into the neck to the angle of the jaw. Chest inspection of chest normal Resp normal respiratory effort Cardio regular rate, regular rhythm, S1 normal heart sound, S2 normal heart sound, no m urmurs, no rub and no gallops GI normal to inspection, nondistended, normoactive bowel sounds Extremity no pedal edema Skin General Skin Exam: ecchymosis Wound Narrative: In the neck area as described above Psych mental status grossly normal Assessment & Plan Assessment/Plan (1) Cardiac enzymes elevated: PLAN: These enzyme elevations are not consistent with a non-STEMI. This is demand ischemia. The patient should be endovascular outpatient medical regiment when appropriate to reinstitute per the primary service. (2) Coronary arteriosclerosis after percutaneous transluminal coronary angioplasty (PTCA): PLAN: Continue secondary risk factor modifications. (3) PSVT (paroxysmal supraventricular tachycardia): PLAN: Telemetry showed a short run of paroxysmal supraventricular tachycardia with obvious P waves this is not consistent with atrial fibrillation. Continue his current medical regiment this is not unexpected given his overall general medical situation. PLAN: Plan 1. Endpoint we will sign off if further assistance is needed please feel free to recontact [facility] 2. The patient is follow-up per his previously arranged appointment in the [facility] and as needed. Charges/Coding Visit Charges Inpatient E&M: 88154 Subs Hosp L2
[2023-04-15] MEDS: Timolol 0.5% 5ML OPTH.BTL 1 DRP OPHTHALMIC ×2 (10:57→21:40)
--- NOTE | 2023-04-15 12:15 | PN_ITS ---
Subjective Subjective Patient and examined. He had no active complaints. He denied any fever, chills, cough, chest pain, palpitations, dizziness, nausea, vomiting or any other symptoms. Review of systems is otherwise negative. He has a right jaw swelling which is nontender and is improving. Objective Data Objective Data Vital Signs: Vital Signs Temp Pulse Resp BP Pulse Ox O2 Del Method O2 Flow Rate 98.3 F 85 18 139/53 H 96 Nasal Cannula 2 04/15/23 11:02 04/15/23 11:02 04/15/23 11:02 04/15/23 11:02 04/15/23 11:02 04/15/23 11:02 04/15/23 11:02 Oxygen Flow Rate (L/min) 2 Oxygen Delivery Method Nasal Cannula Weight: 197 lb 5.019 oz Body Mass Index (BMI) 29.9 Intake & Output: Intake and Output for Last 24 Hours 04/13/23 04/14/23 04/15/23 23:59 23:59 23:59 Intake Total 3959.11 / 3959.11 4630.00 / 4750.00 2249.58 / 2249.58 Output Total 1450 / 1450 1625 / 2025 1400 / 1400 Balance 2509.11 / 2509.11 3005.00 / 2725.00 849.58 / 849.58 Medical Nutrition Assessment Dietitian: Malnutrition Criteria Met Start: 04/13/23 11:51 Freq: Status: Active Protocol: Document 04/13/23 11:51 SLA (Rec: 04/13/23 11:51 SLA Desktop) Nutrition Malnutrition Evidence of Malnutrition Exists Yes Malnutrition (severe): Acute Illness/Injury Evidenced By Suboptimal Energy Intake ( Severe),Weight Loss (Severe) Clinical Problem Acute Disease or Injury Related Malnutrition Etiology related to acute illness and inadequate energy intake Signs/Symptoms as evidenced by pt po intake meeting <50% of est nutritional needs and 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 Lab / Micro Data 04/15/23 04:20 04/15/23 04:20 Labs: Laboratory Results - last 24 hr 04/15/23 04:20: WBC 3.5 L, RBC 2.51 L, Hgb 8.5 L, Hct 27.0 L, MCV 107.6 H, MCH 33.9 H, MCHC 31.5 L, RDW Std Deviation 58.4 H, RDW Coeff of Ese 14.6, Plt Count 84 L, MPV 10.2, Immature Gran % (Auto) 0.600, Neut % (Auto) 77.0 H, Lymph % (Auto) 14.9 L, [place] % (Auto) 7.2, Eos % (Auto) 0.3, Baso % (Auto) 0.0, Absolute Neuts (auto) 2.7, Absolute Lymphs (auto) 0.52 L, Nucleated RBC % 0, Sodium 144, Potassium 4.6, Chloride 123 H, Carbon Dioxide 21.0, Anion Gap 0 L, BUN 62 H, Creatinine 2.05 H, Estim Creat Clear Calc 32.28, Est GFR (MDRD) Af Amer 41 L, Est GFR (MDRD) Non-Af 34 L, BUN/Creatinine Ratio 30.2 H, Glucose 100, Calcium 7.8 L, Total Bilirubin 0.40, AST 274 H, ALT 118 H, Alkaline Phosphatase 59, Total Creatine Kinase 5877 H, Total Protein 5.3 L, Albumin 2.0 L, Globulin 3.3, Albumin/Globulin Ratio 0.6 L Micro: Microbiology 04/12/23 11:00 Blood Culture (Wb) - Right Wrist Blood Culture - Preliminary No growth in 48 hours. 04/12/23 11:05 Blood Culture (Wb) - Right Hand Blood Culture - Preliminary No growth in 48 hours. 04/12/23 11:18 Mucosa - Nasopharyngeal SARS-CoV-2, Influenza & RSV (PCR) - Final Influenzae A Radiography Diagnostic Testing: Radiology Impression Soft Tissue Neck CT 04/14/23 12:16 IMPRESSION: Moderate dense stranding in the right face and neck, concerning for hemorrhage and contusion in a patient with a recent history of trauma. Cellulitis considered less likely. No acute facial fracture identified. Pansinusitis. Electronically Signed: Lilly Francois MD at 13:59 EST , Rhythm Strip Rhythm Strip: PSVT otherwise normal sinus rhythm Physical Exam Const alert, oriented x3 and no apparent distress Constitutional Narrative: frail, weak General Appearance: cooperative HEENT normocephalic and head/scalp atraumatic HEENT Narrative: has a swelling along the right jaw, nontender, with ecchymosis over right jaw and upper neck. no differential warmth or tenderness. Eyes PERRL and EOMs intact bilaterally Neck no lymphadenopathy and supple Lymph Lymphatic: no lymphadenopathy noted and no lymphedema noted Resp normal respiratory effort, normal air movement and clear to auscultation bilaterally Cardio regular rate, regular rhythm, S1 normal heart sound, S2 normal heart sound and no murmurs GI normal to inspection, nondistended, normoactive bowel sounds, soft to palpation, non-tender and non-distended Extremity normal capillary refill, no clubbing, cyanosis or edema and no calf tenderness General Extremity: no tenderness to palpation of joints or extremities Skin General Skin Exam: no breakdown Neuro CN's II-XII intact bilaterally, no focal motor deficits, no sensory deficits noted and deep tendon reflexes 2+ bilaterally Motor Exam: strength 5/5 throughout and general weakness Psych thought process normal and cooperative Psych Narrative: lethargic Appearance: appropriate Mood & Affect: flat affect Assessment & Plan Assessment/Plan (1) Cardiac enzymes elevated: (2) Rhabdomyolysis: QUALIFIERS: Encounter type: initial encounter Rhabdomyolysis type: traumatic Qualified Code(s): T79.6XXA - Traumatic ischemia of muscle, initial encounter PLAN: Plan #Rhabdomyolysis due to mechanical fall * Patient states he fell on the floor. He does not remember whether he passed out or not but knows he was on the floor at least overnight. CPK is more than 28,000. * Creatinine is also elevated but has trended down to 2.53. * CPK is also down to 5877 * cut down fluids to 150cc/hr. NS. * PT/OT On board. Fall precautions. * #Non-STEMI * Likely a type II non-STEMI in light of DIAN and patient's mechanical fall. Initial troponin was 3604 and trended down to 3095 then 2612. * EKG showed no acute ST changes. * cardiology reviewed him and thinks it is a type 2 nonstemi due to DIAN and rhabdomyolysis * 2D echo showed EF of 70%, unable to assess diastolic dyfsunction; no regional wall motion abnormalities seen. * cardiology on board. * P.o. aspirin 81 mg daily. * #DIAN * CR has trended down to 2.05 today. * Baseline creatinine not known. Likely prerenal due to patient being on the floor for about 12 hours and also CPK being elevated in setting of rhabdomyolysis. * Hydrate aggressively with IV fluids. * Trend creatinine. * conteh catheter in situ * nephrology consutled; * #Hematoma of right jaw * patient has a nontender swelling on the right jaw, with ecchmyosis ovr the right jaw , extending down to his neck * soft tissue CT showed moderate dense stranding in the right face and neck, concerning for hemorrhage and contusion in a patient with a recent history of trauma. * Hb has trended down to 8.5, from 13.6 on admission. however, platelets and wbc have also trended down, and so may be due to hemodilution as he has been aggressively hydrated o/a of DIAN and rhabdomyolysis * will monitor for now. If #Influenza A infection: on 2L of oxygen by nasal canula. on tamiflu, renally adjusted dose. # Hypotension: resolved. * #History of CAD s/p CABG: On aspirin and statin. #Dementia: On donepezil #Hypertension: Hold losartan and hydrochlorothiazide on account of DIAN and rhabdomyolysis. IV hydralazine as needed. Also on metoprolol. #BPH: On Flomax DVT prophylaxis: Heparin; dc heparin in light of jaw hematoma and drop in Hb CODE STATUS: Full code Disposition: patient says he may prefer to go to a SNF as his is also unwell and wont be able to take care of him. Case management on board. * Charges/Coding Visit Charges Inpatient E&M: 37357 Subs Hosp L2
[2023-04-15] MEDS: guaiFENesin Dm 10 ML UDC PO (14:34)
[2023-04-15] MEDS: Donepezil HCl 10 MG Tablet PO (21:40)
[2023-04-16] VITALS (7 sets, daily range): BP systolic 138–145; BP diastolic 57–71; PULSE 68–78; RESP 15–18; TEMP 35.8–36.8; O2SAT 92–99
[2023-04-16] MEDS: guaiFENesin Dm 10 ML UDC PO (00:40)
[2023-04-16 06:15] LABS: Absolute Lymphocyte Count 0.58 X10^3/uL (0.83-4.51); Absolute Neutrophil Count 3.2 X10^3/uL (2.0-7.7); Basophil# 0.01 X10^3/uL; Basophil% 0.2 % (0-1); Eosinophil# 0.02 X10^3/uL; Eosinophils% 0.5 % (0-5); Hematocrit 25.7 % (40-54); Hemoglobin 8.4 g/dL (13.0-16.5); Lymphocyte # 0.58 X10^3/ul (0.83-4.51); Lymphocyte % 13.9 % (19-41); Mean Corp Hgb Conc 32.7 g/dL (32-36); Mean Corpuscular Hgb 33.7 pg (27.0-32.0); Mean Corpuscular Volume 103.2 fL (80-94); Mean Platelet Vol. 10.2 fl (6.2-12.0); Monocyte# 0.34 X10^3/uL; Monocyte% 8.2 % (0-10); NRBC Flagged by Analyzer 0 % (0-5); Neutrophil # 3.19 X10^3/uL (2.7-7.7); Neutrophil % 76.5 % (47-70); POSITIVE COUNT YES; POSITIVE DIFFERENTIAL YES; Platelet Count 86 K/mm3 (150-450); RBC Distribution Width CV 14.6 % (11.6-14.6); RBC Distribution Width SD 55.1 fl (35.1-43.9); Red Blood Count 2.49 M/mm3 (4.6-6.2); White Blood Count 4.2 K/mm3 (4.4-11.0)
[2023-04-16 06:51] LABS: ALB/GLOB Ratio 0.6 RATIO (0.9-2.4); AST(SGOT) 227 U/L (15-37); Alanine Aminotransfer ALT/SGPT 115 U/L (16-61); Albumin, Serum 2.1 g/dL (3.2-5.0); Alkaline Phosphatase 62 U/L (45-117); Anion Gap 2 (5-15); BUN 44 mg/dL (7-18); BUN/Creat Ratio 28.2 RATIO (10-20); Calcium,Total 8.1 mg/dL (8.5-10.1); Chloride 123 mmol/L (98-107); Creatinine, Serum 1.56 mg/dL (0.70-1.30); EST Glomerular Filtration Rate 46 mL/min (>60); Est Glom Filt Rate - Afr Amer 56 mL/min (>60); Estimated Creatinine Clearance 42.42 ml/min; Globulin 3.3 g/dL (2.2-4.2); Glucose 96 mg/dL (74-106); Potassium 4.3 mmol/L (3.5-5.1); Protein, Total 5.4 g/dL (6.4-8.2); Sodium Level 147 mmol/L (136-145)
[2023-04-16 07:01] LABS: Differential Indicated SCAN CRITERIA MET
[2023-04-16 07:16] LABS: CPK Total, Creatine Kinase 3011 U/L (39-308)
--- NOTE | 2023-04-16 08:46 | CASEMGMT ---
Discharge Planning Updates sent to [facility] and [facility]. [facility] can accept but does not have a bed immediately available. SW updated. Rachana Tsai, Discharge Planning Asst.
[2023-04-16] MEDS: Tamsulosin HCl 0.4 MG Capsule 0.400000000000000022 MG PO (09:09)
[2023-04-16] MEDS: Aspirin 81 MG TAB.CHEW PO (09:09)
[2023-04-16] MEDS: Atorvastatin Calcium 20 MG Tablet PO (09:09)
[2023-04-16] MEDS: Ensure Plus High Protein 120 ML LIQUID PO ×3 (09:09→17:11)
[2023-04-16] MEDS: Oseltamivir Phosphate 30 MG Capsule PO (09:09)
[2023-04-16] MEDS: Memantine Hydrochloride 5 MG Tablet PO ×2 (09:09→19:49)
[2023-04-16] MEDS: Timolol 0.5% 5ML OPTH.BTL 1 DRP OPHTHALMIC ×2 (09:10→19:49)
--- NOTE | 2023-04-16 09:22 | PN.HOSP_ITS ---
Reason for Visit Reason for Visit: Diagnoses Essential (primary) hypertension (04/12/23) Atherosclerotic heart disease of [place] coronary artery without angina pectoris (04/12/23) Supraventricular tachycardia, unspecified (04/12/23) Acute kidney failure, unspecified (04/12/23) Abnormal levels of other serum enzymes (04/12/23) Traumatic ischemia of muscle, initial encounter (04/12/23) Coronary angioplasty status (04/12/23) Objective Data Objective Data Vital Signs: Vital Signs Temp Pulse Resp BP Pulse Ox O2 Del Method O2 Flow Rate 36.8 C 74 16 145/71 H 95 Room Air 2 04/16/23 09:12 04/16/23 09:12 04/16/23 09:12 04/16/23 09:12 04/16/23 09:17 04/16/23 09:17 04/16/23 09:12 Oxygen Flow Rate (L/min) 2 Oxygen Delivery Method Room Air Weight: 89.5 kg Body Mass Index (BMI) 29.9 Intake & Output: Intake and Output for Last 24 Hours 04/14/23 04/15/23 04/16/23 23:59 23:59 23:59 Intake Total 4630.00 / 4750.00 4049.58 / 4049.58 220 / 220 Output Total 1625 / 2025 2400 / 2400 500 / 500 Balance 3005.00 / 2725.00 1649.58 / 1649.58 -280 / -280 Medical Nutrition Assessment Dietitian: Malnutrition Criteria Met Start: 04/13/23 11:51 Freq: Status: Active Protocol: Document 04/13/23 11:51 MUKESH (Rec: 04/13/23 11:51 MUKESH Desktop) Nutrition Malnutrition Evidence of Malnutrition Exists Yes Malnutrition (severe): Acute Illness/Injury Evidenced By Suboptimal Energy Intake ( Severe),Weight Loss (Severe) Clinical Problem Acute Disease or Injury Related Malnutrition Etiology related to acute illness and inadequate energy intake Signs/Symptoms as evidenced by pt po intake meeting <50% of est nutritional needs and 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 Lab / Micro Data 04/16/23 05:38 04/16/23 05:38 Labs: Laboratory Results - last 24 hr 04/16/23 05:38: WBC 4.2 L, RBC 2.49 L, Hgb 8.4 L, Hct 25.7 L, MCV 103.2 H, MCH 33.7 H, MCHC 32.7, RDW Std Deviation 55.1 H, RDW Coeff of Ese 14.6, Plt Count 86 L, MPV 10.2, Immature Gran % (Auto) 0.700, Neut % (Auto) 76.5 H, Lymph % (Auto) 13.9 L, [place] % (Auto) 8.2, Eos % (Auto) 0.5, Baso % (Auto) 0.2, Absolute Neuts (auto) 3.2, Absolute Lymphs (auto) 0.58 L, Nucleated RBC % 0, Sodium 147 H, Potassium 4.3, Chloride 123 H, Carbon Dioxide 22.0, Anion Gap 2 L, BUN 44 H, Creatinine 1.56 H, Estim Creat Clear Calc 42.42, Est GFR (MDRD) Af Amer 56 L, Est GFR (MDRD) Non-Af 46 L, BUN/Creatinine Ratio 28.2 H, Glucose 96, Calcium 8.1 L, Total Bilirubin 0.50, AST 227 H, ALT 115 H, Alkaline Phosphatase 62, Total Creatine Kinase 3011 H, Total Protein 5.4 L, Albumin 2.1 L, Globulin 3.3, Albumi n/Globulin Ratio 0.6 L Micro: Microbiology 04/12/23 11:00 Blood Culture (Wb) - Right Wrist Blood Culture - Preliminary No growth in 48 hours. 04/12/23 11:05 Blood Culture (Wb) - Right Hand Blood Culture - Preliminary No growth in 48 hours. 04/12/23 11:18 Mucosa - Nasopharyngeal SARS-CoV-2, Influenza & RSV (PCR) - Final Influenzae A Rhythm Strip Rhythm Strip: PSVT otherwise normal sinus rhythm Assessment & Plan Assessment/Plan (1) Cardiac enzymes elevated: (2) Rhabdomyolysis: QUALIFIERS: Rhabdomyolysis type: traumatic Encounter type: initial encounter Qualified Code(s): T79.6XXA - Traumatic ischemia of muscle, initial encounter PLAN: Plan Rhabdomyolysis due to mechanical fall * Patient states he fell on the floor. He does not remember whether he passed out or not but knows he was on the floor at least overnight. CPK is more than 28,000. * Creatinine is also elevated but has trended down to 2.53. * CPK is also down to 3011 * cut down fluids to 150cc/hr. NS. * PT/OT On board. Fall precautions. Non-STEMI * Likely a type II non-STEMI (demand ischemia) in light of DIAN and patient's mechanical fall. Initial troponin was 3604 and trended down to 3095 then 2612. * EKG showed no acute ST changes. * cardiology signed off * 2D echo showed EF of 70%, unable to assess diastolic dyfsunction; no regional wall motion abnormalities seen. * P.o. aspirin 81 mg daily. DIAN * Creatinine 3.27 down to to 1.56 * Baseline creatinine not known. Likely prerenal due to patient being on the floor for about 12 hours and also CPK being elevated in setting of rhabdomy olysis. * Nephrology following * DC IVF. Hematoma of right jaw * patient has a nontender swelling on the right jaw, with ecchmyosis ovr the right jaw , extending down to his neck * soft tissue CT showed moderate dense stranding in the right face and neck, concerning for hemorrhage and contusion in a patient with a recent history of trauma. * Hb has trended down to 8.5, from 13.6 on admission. however, platelets and wbc have also trended down, and so may be due to hemodilution as he has been aggressively hydrated o/a of DIAN and rhabdomyolysis * will monitor for now. If Acute blood loss anemia * Dropped from 13.6 (likely hemoconcentrated), but stable at 8.4. Influenza A infection: on 2L of oxygen by nasal canula. on tamiflu, renally adjusted dose. Hypotension: * resolved. 2/2 dehydration Chronic conditions: * History of CAD s/p CABG: On aspirin and statin. * Dementia: On donepezil * Hypertension: Hold losartan and hydrochlorothiazide on account of DIAN and rhabdomyolysis. IV hydralazine as needed. Also on metoprolol. * BPH: On Flomax DVT prophylaxis: Heparin; dc heparin in light of jaw hematoma and drop in Hb CODE STATUS: Full code Disposition: SNF. Medically stable.
--- NOTE | 2023-04-16 09:22 | PCM.PN.HOSP ---
Subjective Subjective Feeling very weak. Walking to and from the bathroom with a walker and assistance was like [facility] . Objective Data Objective Data Vital Signs: Vital Signs Temp Pulse Resp BP Pulse Ox O2 Del Method O2 Flow Rate 36.8 C 74 16 145/71 H 95 Room Air 2 04/16/23 09:12 04/16/23 09:12 04/16/23 09:12 04/16/23 09:12 04/16/23 09:17 04/16/23 09:17 04/16/23 09:12 Oxygen Flow Rate (L/min) 2 Oxygen Delivery Method Room Air Weight: 89.5 kg Body Mass Index (BMI) 29.9 Intake & Output: Intake and Output for Last 24 Hours 04/14/23 04/15/23 04/16/23 23:59 23:59 23:59 Intake Total 4630.00 / 4750.00 4049.58 / 4049.58 220 / 220 Output Total 1625 / 2025 2400 / 2400 500 / 500 Balance 3005.00 / 2725.00 1649.58 / 1649.58 -280 / -280 Medical Nutrition Assessment Dietitian: Malnutrition Criteria Met Start: 04/13/23 11:51 Freq: Status: Active Protocol: Document 04/13/23 11:51 SLA (Rec: 04/13/23 11:51 SLA Desktop) Nutrition Malnutrition Evidence of Malnutrition Exists Yes Malnutrition (severe): Acute Illness/Injury Evidenced By Suboptimal Energy Intake ( Severe),Weight Loss (Severe) Clinical Problem Acute Disease or Injury Related Malnutrition Etiology related to acute illness and inadequate energy intake Signs/Symptoms as evidenced by pt po intake meeting <50% of est nutritional needs and 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 Lab / Micro Data 04/16/23 05:38 04/16/23 05:38 Labs: Laboratory Results - last 24 hr 04/16/23 05:38: WBC 4.2 L, RBC 2.49 L, Hgb 8.4 L, Hct 25.7 L, MCV 103.2 H, MCH 33.7 H, MCHC 32.7, RDW Std Deviation 55.1 H, RDW Coeff of Ese 14.6, Plt Count 86 L, MPV 10.2, Immature Gran % (Auto) 0.700, Neut % (Auto) 76.5 H, Lymph % (Auto) 13.9 L, [place] % (Auto) 8.2, Eos % (Auto) 0.5, Baso % (Auto) 0.2, Absolute Neuts (auto) 3.2, Absolute Lymphs (auto) 0.58 L, Nucleated RBC % 0, Sodium 147 H, Potassium 4.3, Chloride 123 H, Carbon Dioxide 22.0, Anion Gap 2 L, BUN 44 H, Creatinine 1.56 H, Estim Creat Clear Calc 42.42, Est GFR (MDRD) Af Amer 56 L, Est GFR (MDRD) Non-Af 46 L, BUN/Creatinine Ratio 28.2 H, Glucose 96, Calcium 8.1 L, Total Bilirubin 0.50, AST 227 H, ALT 115 H, Alkaline Phosphatase 62, Total Creatine Kinase 3011 H, Total Protein 5.4 L, Albumin 2.1 L, Globulin 3.3, Albumin/Globulin Ratio 0.6 L Micro: Microbiology 04/12/23 11:00 Blood Culture (Wb) - Right Wrist Blood Culture - Preliminary No growth in 48 hours. 04/12/23 11:05 Blood Culture (Wb) - Right Hand Blood Culture - Preliminary No growth in 48 hours. 04/12/23 11:18 Mucosa - Nasopharyngeal SARS-CoV-2, Influenza & RSV (PCR) - Final Influenzae A Rhythm Strip Rhythm Strip: PSVT otherwise normal sinus rhythm Physical Exam Const alert and no apparent distress HEENT HEENT Narrative: Ecchymosis under chin. Resp normal respiratory effort, no retractions, no use of accessory muscles and clear to auscultation bilaterally Cardio regular rate, regular rhythm, S1 normal heart sound and S2 normal heart sound GI normal to inspection, nondistended, normoactive bowel sounds, soft to palpation, non-tender and non-distended Extremity Extremity Narrative: Ecchymosis on underside of left arm. Neuro Sensorium / Orientation: awake and alert Psych Mood & Affect: anxious Assessment & Plan Assessment/Plan (1) Cardiac enzymes elevated: (2) Rhabdomyolysis: QUALIFIERS: Encounter type: initial encounter Rhabdomyolysis type: traumatic Qualified Code(s): T79.6XXA - Traumatic ischemia of muscle, initial encounter PLAN: Plan Rhabdomyolysis due to mechanical fall Patient states he fell on the floor. He does not remember whether he passed out or not but knows he was on the floor at least overnight. CPK is more than 28,000. Creatinine is also elevated but has trended down to 2.53. CPK is also down to 3011 cut down fluids to 150cc/hr. NS. PT/OT On board. Fall precautions. Non-STEMI Likely a type II non-STEMI (demand ischemia) in light of DIAN and patient's mechanical fall. Initial troponin was 3604 and trended down to 3095 then 2612. EKG showed no acute ST changes. cardiology signed off 2D echo showed EF of 70%, unable to assess diastolic dyfsunction; no regional wall motion abnormalities seen. aspirin 81 mg daily. DIAN Creatinine 3.27 down to to 1.56 Baseline creatinine not known. Likely prerenal due to patient being on the floor for about 12 hours and also CPK being elevated in setting of rhabdomyolysis. Nephrology following DC IVF. Hematoma of right jaw patient has a nontender swelling on the right jaw, with ecchmyosis ovr the right jaw , extending down to his neck soft tissue CT showed moderate dense stranding in the right face and neck, concerning for hemorrhage and contusion in a patient with a recent history of trauma. Hb has trended down to 8.5, from 13.6 on admission. however, platelets and wbc have also trended down, and so may be due to hemodilution as he has been aggressively hydrated o/a of DIAN and rhabdomyolysis will monitor for now. If Acute blood loss anemia Secondary to hematoma but also likely due to hemoconcentration as patient appeared to be dehydrated upon arrival. Dropped from 13.6 (likely hemoconcentrated), but stable at 8.4. Influenza A infection: on 2L of oxygen by nasal canula. on tamiflu, renally adjusted dose. Hypotension: resolved. 2/2 dehydration Chronic conditions: History of CAD s/p CABG: On aspirin and statin. Dementia: On donepezil Hypertension: Hold losartan and hydrochlorothiazide on account of DIAN and rhabdomyolysis. IV hydralazine as needed. Also on metoprolol. BPH: On Flomax DVT prophylaxis: Heparin; dc heparin in light of jaw hematoma and drop in Hb CODE STATUS: Full code Disposition: SNF. Medically stable. Patient and family decided to [facility] but would not have any beds available until the . Patient asked me to talk with his as he is very concerned about her. I used the patient's phone to discuss with his and explained to her his case and the plan for rehab. She expressed understanding. Patient was also very concerned that she was very weak but she stated that she was doing well and her daughter came to town to talk with him. When the patient was asking me to check on his , I told him that does not really my job but I told him to reach out to his children but he said he had too hoarse of a voice to build to do so. Greater than 55 minutes of which greater than 50% of the time was counseling the patient at bedside about his issues but also talking with his over the phone. Charges/Coding Visit Charges Inpatient E&M: 04634 Subs Hosp L3
[2023-04-16 09:34] LABS: Mucous, Urine 0 SEEN /hpf (<or=2+); Squamous Epithelial Cells - UA 0 SEEN /hpf (0-5)
[2023-04-16 09:44] LABS: Color, Urine Yellow (Yellow); Glucose, Dipstick Normal (Normal); Ketone-Dipstick Negative (Negative); Leukocyte Esterase-Dipstick 500 /ul (Negative); Nitrite-Dipstick Negative (Negative); Occult Blood-Urine 150 /ul (Negative); Protein-Dipstick 30 mg/dl (Negative); Urine Bilirubin Dipstick Negative (Negative); Urine Clarity Clear (Clear); Urine Urobilinogen Normal (Normal)
[2023-04-16 09:58] LABS: Yeast-Urine 2+ /hpf (None Seen)
[2023-04-16 09:59] LABS: Bacteria 1+ /hpf (None Seen); Red Blood Cells-Urine 10-25 SEEN /hpf (0-5); White Blood Cells 25-50 SEEN /hpf (0-5)
--- NOTE | 2023-04-16 11:14 | CASEMGMT ---
Discharge Planning Both facilities accepted and patients chose [facility]. [facility] will have bed available on . Both [facility] and [place] updated. SW notified. Rachana Tsai, Discharge Planning Asst.
[2023-04-16] MEDS: Allopurinol 300 MG Tablet PO (11:22)
--- NOTE | 2023-04-16 11:36 | PCM.PN.REN ---
Subjective Subjective Sitting up in bed, eating breakfast. No complaints. No overnight events. Objective Data Objective Data Vital Signs: Vital Signs Temp Pulse Resp BP Pulse Ox O2 Del Method O2 Flow Rate 98.3 F 74 16 145/71 H 95 Room Air 2 04/16/23 09:12 04/16/23 09:12 04/16/23 09:12 04/16/23 09:12 04/16/23 09:17 04/16/23 10:00 04/16/23 09:12 Oxygen Flow Rate (L/min) 2 Oxygen Delivery Method Room Air Weight: 89.5 kg Body Mass Index (BMI) 29.9 Intake & Output: Intake and Output for Last 24 Hours 04/14/23 04/15/23 04/16/23 23:59 23:59 23:59 Intake Total 4630.00 / 4750.00 4049.58 / 4049.58 220 / 220 Output Total 1625 / 2025 2400 / 2400 500 / 500 Balance 3005.00 / 2725.00 1649.58 / 1649.58 -280 / -280 Medical Nutrition Assessment Dietitian: Malnutrition Criteria Met Start: 04/13/23 11:51 Freq: Status: Active Protocol: Document 04/13/23 11:51 SLA (Rec: 04/13/23 11:51 SLA Desktop) Nutrition Malnutrition Evidence of Malnutrition Exists Yes Malnutrition (severe): Acute Illness/Injury Evidenced By Suboptimal Energy Intake ( Severe),Weight Loss (Severe) Clinical Problem Acute Disease or Injury Related Malnutrition Etiology related to acute illness and inadequate energy intake Signs/Symptoms as evidenced by pt po intake meeting <50% of est nutritional needs and 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 Lab / Micro Data 04/16/23 05:38 04/16/23 05:38 Labs: Laboratory Results - last 24 hr 04/16/23 05:38: WBC 4.2 L, RBC 2.49 L, Hgb 8.4 L, Hct 25.7 L, MCV 103.2 H, MCH 33.7 H, MCHC 32.7, RDW Std Deviation 55.1 H, RDW Coeff of Ese 14.6, Plt Count 86 L, MPV 10.2, Immature Gran % (Auto) 0.700, Neut % (Auto) 76.5 H, Lymph % (Auto) 13.9 L, [place] % (Auto) 8.2, Eos % (Auto) 0.5, Baso % (Auto) 0.2, Absolute Neuts (auto) 3.2, Absolute Lymphs (auto) 0.58 L, Nucleated RBC % 0, Sodium 147 H, Potassium 4.3, Chloride 123 H, Carbon Dioxide 22.0, Anion Gap 2 L, BUN 44 H, Creatinine 1.56 H, Estim Creat Clear Calc 42.42, Est GFR (MDRD) Af Amer 56 L, Est GFR (MDRD) Non-Af 46 L, BUN/Creatinine Ratio 28.2 H, Glucose 96, Calcium 8.1 L, Total Bilirubin 0.50, AST 227 H, ALT 115 H, Alkaline Phosphatase 62, Total Creatine Kinase 3011 H, Total Protein 5.4 L, Albumin 2.1 L, Globulin 3.3, Albumin/Globulin Ratio 0.6 L 04/16/23 09:25: Urine Color Yellow, Urine Clarity Clear, Urine pH 6.0, Ur Specific [place] 1.010, Urine Protein 30 H, Urine Glucose (UA) Normal, Urine Ketones Negative, Urine Occult Blood 150 H, Urine Nitrite Negative, Urine Bilirubin Negative, Urine Urobilinogen Normal, Ur Leukocyte Esterase 500 H, Urine RBC 10-25 SEEN, Urine WBC 25-50 SEEN, Ur Squamous Epith Cells 0 SEEN, Urine Bacteria 1+, Urine Mucus 0 SEEN, Urine Yeast 2+ Micro: Microbiology 04/12/23 11:00 Blood Culture (Wb) - Right Wrist Blood Culture - Preliminary No growth in 48 hours. 04/12/23 11:05 Blood Culture (Wb) - Right Hand Blood Culture - Preliminary No growth in 48 hours. 04/12/23 11:18 Mucosa - Nasopharyngeal SARS-CoV-2, Influenza & RSV (PCR) - Final Influenzae A Rhythm Strip Rhythm Strip: PSVT otherwise normal sinus rhythm Physical Exam Narrative Alert awake oriented x 3 no obvious distress s1s2 no murmurs lungs clear abdomen soft no edema Assessment & Plan Assessment/Plan (1) Rhabdomyolysis: QUALIFIERS: Rhabdomyolysis type: traumatic Encounter type: initial encounter Qualified Code(s): T79.6XXA - Traumatic ischemia of muscle, initial encounter (2) DIAN (acute kidney injury): PLAN: - Nonoliguric, mildly hypovolemic DIAN with unknown baseline creatinine. DIAN most likely due to rhabdomyolysis. Creatinine is trending down. Creatinine 3.2 on admission and today creatinine is 1.56. 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 - CPK 28,000 on admission and has improved to 3000. Off IV fluids. - Blood pressures acceptable On metoprolol. - Was on Tamiflu for influenza A.
--- NOTE | 2023-04-16 13:27 | CHAPLAIN ---
Type of Pastoral Visit _x__ Initial Visit ___ Follow-up Visit ___ On-call Visit ___ General Patient Visit ___ Spiritual Assessment ___ Family Conference ___ Bereavement ___ Rapid Response ___ Code Blue ___ Other (describe below) Pastoral Care Referral From _x__ Patient ___ Family ___ Nurse ___ Physician ___ Tax Senior Associate ___ Hydrology Professor ___ Other (describe below) Sacrament/Intervention _x__ Active listening ___ Anointing ___ Religion ___ Bereavement ___ Communion ___ Amber exploration ___ ___ Life review _x__ Prayer ___ Reconciliation ___ Sacrament of Sick _x__ Supportive presence ___ Wedding ___ Other (describe below) Pastoral Comments patient welcomes this crib attendant for presence and prayer in spiritual care; pt is not able to talk loudly and states that is something he hopes will improve soon; pt has concerns for his who is also sick at home; pt does not indicate any other further needs but just for prayer and improvement to come
[2023-04-16] MEDS: Donepezil HCl 10 MG Tablet PO (19:49)
[2023-04-17] MEDS: Benzonatate 100 MG Capsule PO ×2 (00:29→10:39)
[2023-04-17 03:00] VITALS: BP 139/59; PULSE 70; RESP 14; TEMP 36; O2SAT 94
[2023-04-17 07:54] VITALS: O2SAT 93
--- NOTE | 2023-04-17 08:32 | PN.HOSP_ITS ---
Subjective Subjective Weak voice ongoing. Still feeling weak. Objective Data Objective Data Vital Signs: Vital Signs Temp Pulse Resp BP Pulse Ox O2 Del Method O2 Flow Rate 36.0 C L 70 14 139/59 H 94 CPAP 2 04/17/23 03:00 04/17/23 03:00 04/17/23 03:00 04/17/23 03:00 04/17/23 03:00 04/17/23 03:00 04/16/23 09:12 Oxygen Flow Rate (L/min) 2 Oxygen Delivery Method CPAP Weight: 89.5 kg Body Mass Index (BMI) 29.9 Intake & Output: Intake and Output for Last 24 Hours 04/15/23 04/16/23 04/17/23 23:59 23:59 23:59 Intake Total 4049.58 / 4049.58 220 / 420 440 / 440 Output Total 2400 / 2400 500 / 1000 800 / 800 Balance 1649.58 / 1649.58 -280 / -580 -360 / -360 Medical Nutrition Assessment Dietitian: Malnutrition Criteria Met Start: 04/13/23 11:51 Freq: Status: Active Protocol: Document 04/13/23 11:51 SLA (Rec: 04/13/23 11:51 SLA Desktop) Nutrition Malnutrition Evidence of Malnutrition Exists Yes Malnutrition (severe): Acute Illness/Injury Evidenced By Suboptimal Energy Intake ( Severe),Weight Loss (Severe) Clinical Problem Acute Disease or Injury Related Malnutrition Etiology related to acute illness and inadequate energy intake Signs/Symptoms as evidenced by pt po intake meeting <50% of est nutritional needs and 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 Lab / Micro Data 04/17/23 07:14 04/17/23 07:14 Labs: Laboratory Results - last 24 hr 04/16/23 09:25: Urine Color Yellow, Urine Clarity Clear, Urine pH 6.0, Ur Specific [place] 1.010, Urine Protein 30 H, Urine Glucose (UA) Normal, Urine Ketones Negative, Urine Occult Blood 150 H, Urine Nitrite Negative, Urine Bi lirubin Negative, Urine Urobilinogen Normal, Ur Leukocyte Esterase 500 H, Urine RBC 10-25 SEEN, Urine WBC 25-50 SEEN, Ur Squamous Epith Cells 0 SEEN, Urine Bacteria 1+, Urine Mucus 0 SEEN, Urine Yeast 2+ Micro: Microbiology 04/12/23 11:00 Blood Culture (Wb) - Right Wrist Blood Culture - Preliminary No growth in 48 hours. 04/12/23 11:05 Blood Culture (Wb) - Right Hand Blood Culture - Preliminary No growth in 48 hours. 04/12/23 11:18 Mucosa - Nasopharyngeal SARS-CoV-2, Influenza & RSV (PCR) - Final Influenzae A Rhythm Strip Rhythm Strip: PSVT otherwise normal sinus rhythm Physical Exam Const alert and no apparent distress Neck Neck Narrative: ecchymosis under chin Resp no use of accessory muscles Extremity normal to inspection and full ROM Neuro Sensorium / Orientation: awake and alert Assessment & Plan Assessment/Plan (1) Cardiac enzymes elevated: (2) Rhabdomyolysis: QUALIFIERS: Encounter type: initial encounter Rhabdomyolysis type: traumatic Qualified Code(s): T79.6XXA - Traumatic ischemia of muscle, initial encounter PLAN: Plan Rhabdomyolysis due to mechanical fall * Patient states he fell on the floor. He does not remember whether he passed out or not but knows he was on the floor at least overnight. CPK is more than 28,000. * Creatinine is also elevated but has trended down to 2.53. * CPK is also down to 3011 * cut down fluids to 150cc/hr. NS. * PT/OT On board. Fall precautions. Non-STEMI * Likely a type II non-STEMI (demand ischemia) in light of DIAN and patient's mechanical fall. Initial troponin was 3604 and trended down to 3095 then 2612. * EKG showed no acute ST changes. * cardiology signed off * 2D echo showed EF of 70%, unable to assess diastolic dyfsunction; no regional wall motion abnormalities seen. * aspirin 81 mg daily. DIAN * resolved. Admission creatinine 3.27 down to to 1.23 * Baseline creatinine not known. Likely prerenal due to patient being on the floor for about 12 hours and also CPK being elevated in setting of rhabdomyolysis. * Nephrology following * DC IVF. Hematoma of right jaw * patient has a nontender swelling on the right jaw, with ecchmyosis ovr the right jaw , extending down to his neck * soft tissue CT showed moderate dense stranding in the right face and neck, concerning for hemorrhage and contusion in a patient with a recent history of trauma. * Hb has trended down to 8.5, from 13.6 on admission. however, platelets and wbc have also trended down, and so may be due to hemodilution as he has been aggressively hydrated o/a of DIAN and rhabdomyolysis * will monitor for now. If Acute blood loss anemia * Secondary to hematoma but also likely due to hemoconcentration as patient appeared to be dehydrated upon arrival. * Dropped from 13.6 (likely hemoconcentrated), but stable at 8.4. Influenza A infection: on 2L of oxygen by nasal canula. on tamiflu, renally adjusted dose. Hypotension: * resolved. 2/2 dehydration Chronic conditions: * History of CAD s/p CABG: On aspirin and statin. * Dementia: On donepezil * Hypertension: Hold losartan and hydrochlorothiazide on account of DIAN and rhabdomyolysis. IV hydralazine as needed. Also on metoprolol. * BPH: On Flomax DVT prophylaxis: Heparin; dc heparin in light of jaw hematoma and drop in Hb CODE STATUS: Full code Disposition: SNF. Medically stable. Patient and family decided to [facility] but would not have any beds available until the . Charges/Coding Visit Charges Inpatient E&M: 32671 Subs Hosp L2
[2023-04-17 08:34] LABS: Absolute Lymphocyte Count 0.69 X10^3/uL (0.83-4.51); Absolute Neutrophil Count 3.2 X10^3/uL (2.0-7.7); Basophil# 0.01 X10^3/uL; Basophil% 0.2 % (0-1); Eosinophil# 0.04 X10^3/uL; Eosinophils% 0.9 % (0-5); Hematocrit 25.4 % (40-54); Hemoglobin 8.1 g/dL (13.0-16.5); Lymphocyte # 0.69 X10^3/ul (0.83-4.51); Lymphocyte % 15.3 % (19-41); Mean Corp Hgb Conc 31.9 g/dL (32-36); Mean Corpuscular Hgb 33.8 pg (27.0-32.0); Mean Corpuscular Volume 105.8 fL (80-94); Mean Platelet Vol. 10.4 fl (6.2-12.0); Monocyte# 0.44 X10^3/uL; Monocyte% 9.8 % (0-10); NRBC Flagged by Analyzer 0.7 % (0-5); Neutrophil # 3.23 X10^3/uL (2.7-7.7); Neutrophil % 71.8 % (47-70); Platelet Count 102 K/mm3 (150-450); RBC Distribution Width CV 14.5 % (11.6-14.6); RBC Distribution Width SD 56.6 fl (35.1-43.9); White Blood Count 4.5 K/mm3 (4.4-11.0)
[2023-04-17 08:51] LABS: Anion Gap 2 (5-15); BUN 32 mg/dL (7-18); Calcium,Total 8.1 mg/dL (8.5-10.1); Chloride 119 mmol/L (98-107); Creatinine, Serum 1.23 mg/dL (0.70-1.30); EST Glomerular Filtration Rate 60 mL/min (>60); Est Glom Filt Rate - Afr Amer 73 mL/min (>60); Estimated Creatinine Clearance 53.79 ml/min; Glucose 106 mg/dL (74-106); Potassium 3.9 mmol/L (3.5-5.1); Sodium Level 145 mmol/L (136-145)
[2023-04-17 10:00] VITALS: BP 103/93; PULSE 70; RESP 17; TEMP 36.6; O2SAT 95
--- NOTE | 2023-04-17 10:10 | PN.RENAL_ITS ---
Documented by User: DEANGELO Yo 04/17/23 10:15 Subjective Subjective No overnight events, no complaints. Objective Data Objective Data Vital Signs: Vital Signs Temp Pulse Resp BP Pulse Ox O2 Del Method O2 Flow Rate 96.8 F L 70 14 139/59 H 93 Room Air 2 04/17/23 03:00 04/17/23 03:00 04/17/23 03:00 04/17/23 03:00 04/17/23 07:54 04/17/23 07:54 04/16/23 09:12 Oxygen Flow Rate (L/min) 2 Oxygen Delivery Method Room Air Weight: 89.5 kg Body Mass Index (BMI) 29.9 Intake & Output: Intake and Output for Last 24 Hours 04/15/23 04/16/23 04/17/23 23:59 23:59 23:59 Intake Total 4049.58 / 4049.58 220 / 420 440 / 440 Output Total 2400 / 2400 500 / 1000 800 / 800 Balance 1649.58 / 1649.58 -280 / -580 -360 / -360 Medical Nutrition Assessment Dietitian: Malnutrition Criteria Met Start: 04/13/23 11:51 Freq: Status: Active Protocol: Document 04/13/23 11:51 SLA (Rec: 04/13/23 11:51 SLA Desktop) Nutrition Malnutrition Evidence of Malnutrition Exists Yes Malnutrition (severe): Acute Illness/Injury Evidenced By Suboptimal Energy Intake ( Severe),Weight Loss (Severe) Clinical Problem Acute Disease or Injury Related Malnutrition Etiology related to acute illness and inadequate energy intake Signs/Symptoms as evidenced by pt po intake meeting <50% of est nutritional needs and 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 Lab / Micro Data 04/17/23 07:14 04/17/23 07:14 Labs: Laboratory Results - last 24 hr 04/17/23 07:14: WBC 4.5, RBC 2.40 L, Hgb 8.1 L, Hct 25.4 L, MCV 105.8 H, MCH 33.8 H, MCHC 31.9 L, RDW Std Deviation 56.6 H, RDW Coeff of Ese 14.5, Plt Count 102 L, MPV 10.4, Immature Gran % (Auto) 2.000 H, Neut % (Auto) 71.8 H, Lymph % (Auto) 15.3 L, [place] % (Auto) 9.8, Eos % (Auto) 0.9, Baso % (Auto) 0.2, Absolute Neuts (auto) 3.2, Absolute Lymphs (auto) 0.69 L, Nucleated RBC % 0.7, Sodium 145, Potassium 3.9, Chloride 119 H, Carbon Dioxide 24.0, Anion Gap 2 L, BUN 32 H , Creatinine 1.23, Estim Creat Clear Calc 53.79, Est GFR (MDRD) Af Amer 73, Est GFR (MDRD) Non-Af 60, BUN/Creatinine Ratio 26.0 H, Glucose 106, Calcium 8.1 L Micro: Microbiology 04/12/23 11:00 Blood Culture (Wb) - Right Wrist Blood Culture - Preliminary No growth in 48 hours. 04/12/23 11:05 Blood Culture (Wb) - Right Hand Blood Culture - Preliminary No growth in 48 hours. 04/12/23 11:18 Mucosa - Nasopharyngeal SARS-CoV-2, Influenza & RSV (PCR) - Final Influenzae A Rhythm Strip Rhythm Strip: PSVT otherwise normal sinus rhythm Physical Exam Narrative Alert awake oriented x 3 no obvious distress s1s2 no murmurs lungs clear abdomen soft no edema Assessment & Plan Assessment/Plan (1) Rhabdomyolysis: QUALIFIERS: Encounter type: initial encounter Rhabdomyolysis type: traumatic Qualified Code(s): T79.6XXA - Traumatic ischemia of muscle, initial encounter (2) DIAN (acute kidney injury): PLAN: - Nonoliguric, mildly hypovolemic DIAN with unknown baseline creatinine. DIAN most likely due to rhabdomyolysis and hypotension. Creatinine is trending down. Creatinine 3.2 on admission and today creatinine is 1.23. 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 Potassium and bicarb normal. - CPK 28,000 on admission and has improved to 3000. Off IV fluids. - Blood pressures acceptable On metoprolol. - Was on Tamiflu for influenza A. - discharge planning in progress Documented by User: Dr. Gagandeep Felder MD 04/17/23 13:01 Objective Data Lab / Micro Data 04/17/23 07:14 04/17/23 07:14 Assessment & Plan Assessment/Plan (1) Rhabdomyolysis: QUALIFIERS: Encounter type: initial encounter Rhabdomyolysis type : traumatic Qualified Code(s): T79.6XXA - Traumatic ischemia of muscle, initial encounter (2) DIAN (acute kidney injury): PLAN: - Nonoliguric, mildly hypovolemic DIAN with unknown baseline creatinine. DIAN most likely due to rhabdomyolysis and hypotension. Creatinine is trending down. Creatinine 3.2 on admission and today creatinine is 1.23. 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 Potassium and bicarb normal. - CPK 28,000 on admission and has improved to 3000. Off IV fluids. - Blood pressures acceptable On metoprolol. - Was on Tamiflu for influenza A. - discharge planning in progress Attending addendum cr is better. CK is better
[2023-04-17] MEDS: Timolol 0.5% 5ML OPTH.BTL 1 DRP OPHTHALMIC ×2 (10:35→19:52)
[2023-04-17] MEDS: Allopurinol 300 MG Tablet PO (10:35)
[2023-04-17] MEDS: Memantine Hydrochloride 5 MG Tablet PO ×2 (10:35→19:51)
[2023-04-17] MEDS: Tamsulosin HCl 0.4 MG Capsule 0.400000000000000022 MG PO (10:35)
[2023-04-17] MEDS: Aspirin 81 MG TAB.CHEW PO (10:35)
[2023-04-17] MEDS: Atorvastatin Calcium 20 MG Tablet PO (10:35)
[2023-04-17] MEDS: Ensure Plus High Protein 120 ML LIQUID PO ×3 (10:35→18:52)
[2023-04-17] MEDS: guaiFENesin Dm 10 ML UDC PO (10:39)
[2023-04-17 15:00] VITALS: BP 133/63; PULSE 71; RESP 17; TEMP 36.8; O2SAT 96
[2023-04-17] MEDS: Donepezil HCl 10 MG Tablet PO (19:51)
[2023-04-17 21:00] VITALS: BP 151/68; PULSE 69; RESP 15; TEMP 37; O2SAT 95
[2023-04-18 03:00] VITALS: BP 120/66; PULSE 65; RESP 14; TEMP 36.6; O2SAT 94
--- NOTE | 2023-04-18 07:58 | PN.HOSP_ITS ---
Subjective Subjective Feels better. Objective Data Objective Data Vital Signs: Vital Signs Temp Pulse Resp BP Pulse Ox O2 Del Method O2 Flow Rate 36.6 C 65 14 120/66 94 CPAP 2 04/18/23 03:00 04/18/23 03:00 04/18/23 03:00 04/18/23 03:00 04/18/23 03:00 04/18/23 03:00 04/16/23 09:12 Oxygen Flow Rate (L/min) 2 Oxygen Delivery Method CPAP Weight: 89.5 kg Body Mass Index (BMI) 29.9 Intake & Output: Intake and Output for Last 24 Hours 04/16/23 04/17/23 04/18/23 23:59 23:59 23:59 Intake Total 220 / 420 440 / 680 360 / 360 Output Total 500 / 1000 800 / 1300 1150 / 1150 Balance -280 / -580 -360 / -620 -790 / -790 Medical Nutrition Assessment Dietitian: Malnutrition Criteria Met Start: 04/13/23 11:51 Freq: Status: Active Protocol: Document 04/13/23 11:51 SLA (Rec: 04/13/23 11:51 SLA Desktop) Nutrition Malnutrition Evidence of Malnutrition Exists Yes Malnutrition (severe): Acute Illness/Injury Evidenced By Suboptimal Energy Intake ( Severe),Weight Loss (Severe) Clinical Problem Acute Disease or Injury Related Malnutrition Etiology related to acute illness and inadequate energy intake Signs/Symptoms as evidenced by pt po intake meeting <50% of est nutritional needs and 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 Lab / Micro Data 04/17/23 07:14 04/17/23 07:14 Labs: Laboratory Results - last 24 hr 04/17/23 07:14: WBC 4.5, RBC 2.40 L, Hgb 8.1 L, Hct 25.4 L, MCV 105.8 H, MCH 33.8 H, MCHC 31.9 L, RDW Std Deviation 56.6 H, RDW Coeff of Ese 14.5, Plt Count 102 L, MPV 10.4, Immature Gran % (Auto) 2.000 H, Neut % (Auto) 71.8 H, Lymph % (Auto) 15.3 L, [place] % (Auto) 9.8, Eos % (Auto) 0.9, Baso % (Auto) 0.2, Absolute Neuts (auto) 3.2, Absolute Lymphs (auto) 0.69 L, Nucleated RBC % 0.7, Sodium 145, Potassium 3.9, Chloride 119 H, Carbon Dioxide 24.0, Anion Gap 2 L, BUN 32 H , Creatinine 1.23, Estim Creat Clear Calc 53.79, Est GFR (MDRD) Af Amer 73, Est GFR (MDRD) Non-Af 60, BUN/Creatinine Ratio 26.0 H, Glucose 106, Calcium 8.1 L Micro: Microbiology 04/12/23 11:00 Blood Culture (Wb) - Right Wrist Blood Culture - Final No growth in 5 days. 04/12/23 11:05 Blood Culture (Wb) - Right Hand Blood Culture - Final No growth in 5 days. 04/12/23 11:18 Mucosa - Nasopharyngeal SARS-CoV-2, Influenza & RSV (PCR) - Final Influenzae A Rhythm Strip Rhythm Strip: PSVT otherwise normal sinus rhythm Physical Exam Const alert and no apparent distress Constitutional Narrative: up in chair w t-shirt on. Neck Neck Narrative: ecchymosis under chin. Resp normal respiratory effort, no retractions, no use of accessory muscles and clear to auscultation bilaterally Cardio regular rate, regular rhythm, S1 normal heart sound and S2 normal heart sound GI normal to inspection, nondistended, normoactive bowel sounds and soft to palpation Extremity normal to inspection Assessment & Plan Assessment/Plan (1) Cardiac enzymes elevated: (2) Rhabdomyolysis: QUALIFIERS: Encounter type: initial encounter Rhabdomyolysis type: traumatic Qualified Code(s): T79.6XXA - Traumatic ischemia of muscle, initial encounter PLAN: Plan Rhabdomyolysis due to mechanical fall * Patient states he fell on the floor. He does not remember whether he passed out or not but knows he was on the floor at least overnight. CPK is more than 28,000. * Creatinine is also elevated but has trended down to 2.53. * CPK is also down to 3011 * cut down fluids to 150cc/hr. NS. * PT/OT On board. Fall precautions. Non-STEMI * Likely a type II non-STEMI (demand ischemia) in light of DIAN and patient's mechanical fall. Initial troponin was 3604 and trended down to 3095 then 2612. * EKG showed no acute ST changes. * cardiology signed off * 2D echo showed EF of 70%, unable to assess diastolic dyfsunction; no regional wall motion abnormalities seen. * aspirin 81 mg daily. DIAN * resolved. Admission creatinine 3.27 down to to 1.23 * Baseline creatinine not known. Likely prerenal due to patient being on the floor for about 12 hours and also CPK being elevated in setting of rhabdomyolysis. * Nephrology following * DC IVF. Hematoma of right jaw * patient has a nontender swelling on the right jaw, with ecchmyosis ovr the right jaw , extending down to his neck * soft tissue CT showed moderate dense stranding in the right face and neck, concerning for hemorrhage and contusion in a patient with a recent history of trauma. * Hb has trended down to 8.5, from 13.6 on admission. however, platelets and wbc have also trended down, and so may be due to hemodilution as he has been aggressively hydrated o/a of DIAN and rhabdomyolysis * will monitor for now. If Acute blood loss anemia * Secondary to hematoma but also likely due to hemoconcentration as patient appeared to be dehydrated upon arrival. * Dropped from 13.6 (likely hemoconcentrated), but stable at 8.4. Influenza A infection: on 2L of oxygen by nasal canula. on tamiflu, renally adjusted dose. Hypotension: * resolved. 2/2 dehydration Chronic conditions: * History of CAD s/p CABG: On aspirin and statin. * Dementia: On donepezil * Hypertension: Hold losartan and hydrochlorothiazide on account of DIAN and rhabdomyolysis. IV hydralazine as needed. Also on metoprolol. * BPH: On Flomax DVT prophylaxis: Heparin; dc heparin in light of jaw hematoma and drop in Hb CODE STATUS: Full code Disposition: SNF. Medically stable. Patient and family decided to [facility] but would not have any beds available until the . Charges/Coding Visit Charges Inpatient E&M: 87024 Subs Hosp L2
[2023-04-18] MEDS: 0.9% Saline Lock 10 ML Syringe IV (08:56)
[2023-04-18] MEDS: Ondansetron 4 MG/2 ML Vial IV (08:56)
[2023-04-18] MEDS: Benzonatate 100 MG Capsule PO (08:59)
[2023-04-18] MEDS: Timolol 0.5% 5ML OPTH.BTL 1 DRP OPHTHALMIC (08:59)
[2023-04-18 09:00] VITALS: BP 148/69; PULSE 66; RESP 16; TEMP 36.6; O2SAT 100
[2023-04-18] MEDS: Atorvastatin Calcium 20 MG Tablet PO (09:00)
[2023-04-18] MEDS: Aspirin 81 MG TAB.CHEW PO (09:00)
[2023-04-18] MEDS: Allopurinol 300 MG Tablet PO (09:00)
[2023-04-18] MEDS: Tamsulosin HCl 0.4 MG Capsule 0.400000000000000022 MG PO (09:00)
[2023-04-18] MEDS: Ensure Plus High Protein 120 ML LIQUID PO ×2 (11:29→17:14)
[2023-04-18] MEDS: Memantine Hydrochloride 5 MG Tablet PO (11:29)
--- NOTE | 2023-04-18 12:41 | TREXTCAR_ITS ---
Diet Diet Order/Speech Therapy: 04/13/23 11:54 Diet: Regular - General Dietary Modifications:: No Added Salt Is pt able to select menu?: Yes Therapies Physical Therapy: Eval and Treat Occupational Therapy: Eval and Treat Problem/Diagnosis (1) Cardiac enzymes elevated: Status: Acute Code(s): R74.8 - Abnormal levels of other serum enzymes (2) Rhabdomyolysis: Status: Acute Code(s): M62.82 - Rhabdomyolysis Plan Rhabdomyolysis due to mechanical fall * Patient states he fell on the floor. He does not remember whether he passed out or not but knows he was on the floor at least overnight. CPK is more than 28,000. * Creatinine is also elevated but has trended down to 2.53. * CPK is also down to 3011 * cut down fluids to 150cc/hr. NS. * PT/OT On board. Fall precautions. Non-STEMI * Likely a type II non-STEMI (demand ischemia) in light of DIAN and patient's mechanical fall. Initial troponin was 3604 and trended down to 3095 then 2612. * EKG showed no acute ST changes. * cardiology signed off * 2D echo showed EF of 70%, unable to assess diastolic dyfsunction; no regional wall motion abnormalities seen. * aspirin 81 mg daily. DIAN * resolved. Admission creatinine 3.27 down to to 1.23 * Baseline creatinine not known. Likely prerenal due to patient being on the floor for about 12 hours and also CPK being elevated in setting of rhabdomyolysis. * Nephrology following * DC IVF. Hematoma of right jaw * patient has a nontender swelling on the right jaw, with ecchmyosis ovr the right jaw , extending down to his neck * soft tissue CT showed moderate dense stranding in the right face and neck, concerning for hemorrhage and contusion in a patient with a recent history of trauma. * Hb has trended down to 8.5, from 13.6 on admission. however, platelets and wbc have also trended down, and so may be due to hemodilution as he has been aggressively hydrated o/a of DIAN and rhabdomyolysis * will monitor for now. If Acute blood loss anemia * Secondary to hematoma but also likely due to hemoconcentration as patient appeared to be dehydrated upon arrival. * Dropped from 13.6 (likely hemoconcentrated), but stable at 8.4. Influenza A infection: on 2L of oxygen by nasal canula. on tamiflu, renally adjusted dose. Hypotension: * resolved. 2/2 dehydration Chronic conditions: * History of CAD s/p CABG: On aspirin and statin. * Dementia: On donepezil * Hypertension: Hold losartan and hydrochlorothiazide on account of DIAN and rhabdomyolysis. IV hydralazine as needed. Also on metoprolol. * BPH: On Flomax DVT prophylaxis: Heparin; dc heparin in light of jaw hematoma and drop in Hb CODE STATUS: Full code Disposition: SNF. Medically stable. Patient and family decided to [facility] but would not have any beds available until the . Allergies/Procedures Done in Hospital Allergies No Known Allergies Allergy (Verified 04/12/23 11:22) Type of Care/Length of Stay Estimated LOS: Convalescent Care Less Than 30 days Type of Care Needed: Skilled Rehab Potential: Fair Prognosis: Good Additional Orders/Day of Discharge Day of Discharge: 04/18/23 Dietary and Speech Recommendations Dietitian Recommendations/Changes: Will change diet to Regular - ROBERT to liberalize diet due to poor PO intakes but will limit sodium intake due to recent NSTMI. Will order 4 oz ensure plus high protein 4x/day w/ medpass for increased nutrition if consumed. Discharge Plan Admission Admit Date/Time: 04/12/23 12:54 Primary Reason for Your Visit: rhabdomyolysis. DIAN Attending Provider: Jesse Slade Primary Care Provider: Julio Mera Consulting Providers: Jack Fuller; Gagandeep Felder; Tesah Layne Discharge Orders/Prescriptions Prescriptions: New Ensure Plus High Protein 0.08 gram-1.5 kcal/mL Liquid 120 ml PO 4X/DAY Qty: 0 0RF Continued albuterol sulfate 90 mcg/actuation HFA aerosol inhaler 2 puff INHALATION Q4H PRN (Reason: wheezing) Patient Comments: INHALE TWO PUFFS EVERY 4 HOURS NEEDED FOR WHEEZING allopurinol 300 mg tablet 300 mg PO DAILY Patient Comments: take 1 tablet by mouth once daily atorvastatin 20 mg tablet 20 mg PO DAILY Patient Comments: take 1 tablet by mouth once daily benzonatate 100 mg capsule 100 mg PO TID PRN PRN (Reason: cough) Patient Comments: take 1 capsule by mouth three times a day for 10 days if needed for cough cetirizine 10 mg tablet 10 mg PO DAILY PRN (Reason: allergy symptoms) Patient Comments: take 1 tablet by mouth once daily if needed for ALLERGY SYMPTOMS donepezil 10 mg tablet 10 mg PO QHS Patient Comments: take 1 tablet by mouth at bedtime memantine 5 mg tablet 5 mg PO BID Patient Comments: take 1 tablet by mouth twice a day metoprolol tartrate 25 mg tablet 25 mg PO BID Patient Comments: take 1 tablet by mouth twice a day tamsulosin 0.4 mg capsule 0.4 mg PO DAILY Patient Comments: take 1 capsule by mouth once daily timolol maleate 0.5 % drops 1 drp ophthalmic (eye) BID Patient Comments: instill 1 drop into both eyes twice a day aspirin 81 mg capsule 81 mg PO DAILY Held methylprednisolone 4 mg tablets,dose pack 4 mg PO Hold Instructions: Patient Comments: patient had not started taking yet. new prescription Discontinued losartan-hydrochlorothiazide 50-12.5 mg tablet 1 tab PO DAILY Patient Comments: take 1 tablet by mouth once daily Referrals / Follow Up: Julio Mera MD [Primary Care Provider] - Sumeet Ugarte EDGE GRINDER, EDGE GRINDER-C [Med Staff - [facility]] - 04/23/23 11:00 am Disposition Disposition (needs filled in before D/C Order can be placed): Longterm Facility (2) Rhabdomyolysis Qualifiers: Rhabdomyolysis type: traumatic Encounter type: initial encounter Qualified Code(s): T79.6XXA - Traumatic ischemia of muscle, initial encounter
--- NOTE | 2023-04-18 13:41 | CASEMGMT ---
Discharge Planning [facility] has obtained auth. SW updated. Rachana Tsai, Discharge Planning Asst.
--- NOTE | 2023-04-18 14:16 | CASEMGMT ---
Patient is ready for d/c to [place]. SW completed a 7000 in [facility] system. Physicians will transport patient. Plan: d/c to [place] under skilled level of care on a convalescent stay. Zulay ORANTES
--- NOTE | 2023-04-18 14:43 | DS.PCM_ITS ---
Providers Date of Admission: 04/12/23 Primary Care Physician: Dr. Julio Mera MD Consultations 04/12/23 13:39 Consult: Cardiology Routine Consulting Provider: Jack Fuller Reason for Consult: nonstemi EMERGENT Consult: No Notified: Yes Date Notified: 04/12/23 Time Notified: 13:01 Method of Notification: Text 04/13/23 17:03 Consult: Nephrology Routine Consulting Provider: Gagandeep Felder Reason for Consult: DIAN, rhabdomyolysis EMERGENT Consult: No Notified: Yes Date Notified: 04/13/23 Time Notified: 17:03 Method of Notification: Text Reason For Visit: RHABDOMYOLYSIS NONSTEMI Diagnosis Discharge Diagnosis (1) Cardiac enzymes elevated: Status: Acute Code(s): R74.8 - Abnormal levels of other serum enzymes (2) Rhabdomyolysis: Status: Acute Code(s): M62.82 - Rhabdomyolysis Qualifiers: Rhabdomyolysis type: traumatic Encounter type: initial encounter Qualified Code(s): T79.6XXA - Traumatic ischemia of muscle, initial encounter Plan Rhabdomyolysis due to mechanical fall * Patient states he fell on the floor. He does not remember whether he passed out or not but knows he was on the floor at least overnight. CPK is more than 28,000. * Creatinine is also elevated but has trended down to 2.53. * CPK is also down to 3011 * cut down fluids to 150cc/hr. NS. * PT/OT On board. Fall precautions. Non-STEMI * Likely a type II non-STEMI (demand ischemia) in light of DIAN and patient's mechanical fall. Initial troponin was 3604 and trended down to 3095 then 2612. * EKG showed no acute ST changes. * cardiology signed off * 2D echo showed EF of 70%, unable to assess diastolic dyfsunction; no regional wall motion abnormalities seen. * aspirin 81 mg daily. DIAN * resolved. Admission creatinine 3.27 down to to 1.23 * Baseline creatinine not known. Likely prerenal due to patient being on the floor for about 12 hours and also CPK being elevated in setting of rhabdomyolysis. * Nephrology following * DC IVF. Hematoma of right jaw * patient has a nontender swelling on the right jaw, with ecchmyosis ovr the right jaw , extending down to his neck * soft tissue CT showed moderate dense stranding in the right face and neck, concerning for hemorrhage and contusion in a patient with a recent history of trauma. * Hb has trended down to 8.5, from 13.6 on admission. however, platelets and wbc have also trended down, and so may be due to hemodilution as he has been aggressively hydrated o/a of DIAN and rhabdomyolysis * will monitor for now. If Acute blood loss anemia * Secondary to hematoma but also likely due to hemoconcentration as patient appeared to be dehydrated upon arrival. * Dropped from 13.6 (likely hemoconcentrated), but stable at 8.4. Influenza A infection: on 2L of oxygen by nasal canula. on tamiflu, renally adjusted dose. Hypotension: * resolved. 2/2 dehydration Chronic conditions: * History of CAD s/p CABG: On aspirin and statin. * Dementia: On donepezil * Hypertension: Hold losartan and hydrochlorothiazide on account of DIAN and rhabdomyolysis. IV hydralazine as needed. Also on metoprolol. * BPH: On Flomax DVT prophylaxis: Heparin; dc heparin in light of jaw hematoma and drop in Hb CODE STATUS: Full code Disposition: SNF. Medically stable. Patient and family decided to [facility] but would not have any beds available until the . Medications at Discharge Home Medications albuterol sulfate 90 mcg/actuation aerosol inhaler 2 puff inhalation Q4H PRN wheezing 04/12/23 allopurinol 300 mg tablet 300 mg PO DAILY gout 04/12/23 aspirin 81 mg capsule 81 mg PO DAILY heart health 04/12/23 atorvastatin 20 mg tablet 20 mg PO DAILY cholesterol 04/12/23 benzonatate 100 mg capsule 100 mg PO TID PRN PRN cough 04/12/23 cetirizine 10 mg tablet 10 mg PO DAILY PRN allergy symptoms 04/12/23 donepezil 10 mg tablet 10 mg PO QHS dementia 04/12/23 memantine 5 mg tablet 5 mg PO BID dementia 04/12/23 methylprednisolone 4 mg tablets in a dose pack 4 mg PO steriod 04/12/23 metoprolol tartrate 25 mg tablet 25 mg PO BID blood pressure 04/12/23 tamsulosin 0.4 mg capsule 0.4 mg PO DAILY urination 04/12/23 timolol maleate 0.5 % eye drops 1 drp ophthalmic (eye) BID eye health 04/12/23 food supplemt, lactose-reduced 0.08 gram-1.5 kcal/mL oral liquid (Ensure Plus High Protein) 120 ml PO 4X/DAY #0 mL 04/18/23 Hospital Course Operations None Procedures None Summary of Care Provided Minutes Spent on Discharge: 32 Medical Records Data Medical Nutrition Assessment Dietitian: Malnutrition Criteria Met Start: 04/13/23 11:51 Freq: Status: Active Protocol: Document 04/13/23 11:51 SLA (Rec: 04/13/23 11:51 SLA Desktop) Nutrition Malnutrition Evidence of Malnutrition Exists Yes Malnutrition (severe): Acute Illness/Injury Evidenced By Suboptimal Energy Intake ( Severe),Weight Loss (Severe) Clinical Problem Acute Disease or Injury Related Malnutrition Etiology related to acute illness and inadequate energy intake Signs/Symptoms as evidenced by pt po intake meeting <50% of est nutritional needs and 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 Weight / BMI Weight Weight: 89.5 kg Body Mass Index (BMI) 29.9 ABG / Lab / Microbiology Data 04/17/23 07:14 04/17/23 07:14 Microbiology: Microbiology 04/12/23 11:00 Blood Culture (Wb) - Right Wrist Blood Culture - Final No growth in 5 days. 04/12/23 11:05 Blood Culture (Wb) - Right Hand Blood Culture - Final No growth in 5 days. 04/12/23 11:18 Mucosa - Nasopharyngeal SARS-CoV-2, Influenza & RSV (PCR) - Final Influenzae A Meaningful Use Info Meaningful Use Diagnoses (Choose all that apply): None applicable Discharge Plan Admission Admit Date/Time: 04/12/23 12:54 Primary Reason for Your Visit: rhabdomyolysis. DIAN Attending Provider: Jesse Slade Primary Care Provider: Julio Mera Consulting Providers: Jack Fuller; Gagandeep Felder; Tesha Layne Discharge Orders/Prescriptions Prescriptions: New Ensure Plus High Protein 0.08 gram-1.5 kcal/mL Liquid 120 ml PO 4X/DAY Qty: 0 0RF Continued albuterol sulfate 90 mcg/actuation HFA aerosol inhaler 2 puff INHALATION Q4H PRN (Reason: wheezing) Patient Comments: INHALE TWO PUFFS EVERY 4 HOURS NEEDED FOR WHEEZING allopurinol 300 mg tablet 300 mg PO DAILY Patient Comments: take 1 tablet by mouth once daily atorvastatin 20 mg tablet 20 mg PO DAILY Patient Comments: take 1 tablet by mouth once daily benzonatate 100 mg capsule 100 mg PO TID PRN PRN (Reason: cough) Patient Comments: take 1 capsule by mouth three times a day for 10 days if needed for cough cetirizine 10 mg tablet 10 mg PO DAILY PRN (Reason: allergy symptoms) Patient Comments: take 1 tablet by mouth once daily if needed for ALLERGY SYMPTOMS donepezil 10 mg tablet 10 mg PO QHS Patient Comments: take 1 tablet by mouth at bedtime memantine 5 mg tablet 5 mg PO BID Patient Comments: take 1 tablet by mouth twice a day metoprolol tartrate 25 mg tablet 25 mg PO BID Patient Comments: take 1 tablet by mouth twice a day tamsulosin 0.4 mg capsule 0.4 mg PO DAILY Patient Comments: take 1 capsule by mouth once daily timolol maleate 0.5 % drops 1 drp ophthalmic (eye) BID Patient Comments: instill 1 drop into both eyes twice a day aspirin 81 mg capsule 81 mg PO DAILY Held methylprednisolone 4 mg tablets,dose pack 4 mg PO Hold Instructions: Patient Comments: patient had not started taking yet. new prescription Discontinued losartan-hydrochlorothiazide 50-12.5 mg tablet 1 tab PO DAILY Patient Comments: take 1 tablet by mouth once daily Referrals / Follow Up: Julio Mera MD [Primary Care Provider] - Sumeet Ugarte FARMWORKER, FARMWORKER-C [Med Staff - [facility]] - 04/23/23 11:00 am Disposition Disposition (needs filled in before D/C Order can be placed): Senior Living Facility Charges/Coding Visit Charges Inpatient E&M: 10121 Disch Hosp >30min
--- NOTE | 2023-04-18 15:42 | CASEMGMT ---
Discharge Planning Discharge orders, signed med list, covid results, and transport time sent to [facility] via [facility]. Physicians will transport patient by wheelchair at 5:30p. Nursing, SW, patient, and patients updated. Rachana Tsai, Discharge Planning Asst.
[2023-04-18 16:07] VITALS: BP 158/71; PULSE 65; RESP 17; TEMP 36.6; O2SAT 95
--- NOTE | 2023-04-18 16:27 | NURSING ---
Report called to [facility]. I spoke to Nicole
== END 2023-04-18 18:59 | disposition skilled nursing facility (03) | DRG 564 ==
LOC: ED 13:02 → PCU 13:04
PROVIDERS: Admitting Provider Student in an Organized Health Care Education/Training Program; Emergency Provider Emergency Medicine; PCP Family Medicine
DX: T79.6XXA Traumatic ischemia of muscle, initial encounter (principal); I21.A1 Myocardial infarction type 2; E43 Unspecified severe protein-calorie malnutrition; E87.20 Acidosis, unspecified; D62 Acute posthemorrhagic anemia; N17.9 Acute kidney failure, unspecified; I47.10 Supraventricular tachycardia, unspecified; D69.6 Thrombocytopenia, unspecified; F03.90 Unspecified dementia, unspecified severity, without behavioral disturbance, psychotic disturbance, mood disturbance, and anxiety; I10 Essential (primary) hypertension; K76.1 Chronic passive congestion of liver; I95.9 Hypotension, unspecified; E86.0 Dehydration; E78.00 Pure hypercholesterolemia, unspecified; I25.10 Atherosclerotic heart disease of native coronary artery without angina pectoris; S00.83XA Contusion of other part of head, initial encounter; J10.1 Influenza due to other identified influenza virus with other respiratory manifestations; W19.XXXA Unspecified fall, initial encounter; E86.1 Hypovolemia; N40.0 Benign prostatic hyperplasia without lower urinary tract symptoms; Z68.29 Body mass index [BMI] 29.0-29.9, adult; Z79.82 Long term (current) use of aspirin; Z79.899 Other long term (current) drug therapy; Z86.73 Personal history of transient ischemic attack (TIA), and cerebral infarction without residual deficits; Z95.1 Presence of aortocoronary bypass graft; Z95.5 Presence of coronary angioplasty implant and graft
CPT/HCPCS: 36415; 70110; 70450; 70490; 71045; 72125; 72128; 72131; 76770; 80048; 80053; 80061; 81001; 82550; 83036; 83605; 83690; 84484; 85025; 85610; 85730; 87040; 87426; 87631; 93005; 93306; 94640; 97110; 97116; 97162; 97166; 97530; 97535; 97802; 97803; 99283; J7030; J7120; Q9957; A4216; C8929; J2405

== ENCOUNTER → 2023-07-23 | Outpatient (CLI) | payer MEDICARE, SELFPAY ==
[2023-07-23 09:50] LABS: Absolute Neutrophil Count 6.4 X10^3/uL (2.0-7.7); Basophil# 0.03 X10^3/uL; Basophil% 0.3 % (0-1); Eosinophil# 0.18 X10^3/uL; Eosinophils% 2.1 % (0-5); Hematocrit 37.8 % (40-54); Hemoglobin 12.3 g/dL (13.0-16.5); Lymphocyte % 12.8 % (19-41); Mean Corp Hgb Conc 32.5 g/dL (32-36); Mean Corpuscular Hgb 31.9 pg (27.0-32.0); Mean Corpuscular Volume 97.9 fL (80-94); Mean Platelet Vol. 8.9 fl (6.2-12.0); Monocyte# 0.89 X10^3/uL; Monocyte% 10.4 % (0-10); NRBC Flagged by Analyzer 0 % (0-5); Neutrophil # 6.35 X10^3/uL (2.7-7.7); Neutrophil % 73.9 % (47-70); Platelet Count 167 K/mm3 (150-450); RBC Distribution Width CV 16.5 % (11.6-14.6); RBC Distribution Width SD 58.7 fl (35.1-43.9); Red Blood Count 3.86 M/mm3 (4.6-6.2); White Blood Count 8.6 K/mm3 (4.4-11.0)
[2023-07-23 10:01] LABS: BNP,B-Type NATRIURETIC PEPTIDE 45.7 pg/mL (0-100)
[2023-07-23 10:44] LABS: Anion Gap 6 (5-15); BUN 40 mg/dL (7-18); BUN/Creat Ratio 23.7 RATIO (10-20); Calcium,Total 9.4 mg/dL (8.5-10.1); Chloride 110 mmol/L (98-107); Creatinine, Serum 1.69 mg/dL (0.70-1.30); EST Glomerular Filtration Rate 42 mL/min (>60); Est Glom Filt Rate - Afr Amer 51 mL/min (>60); Free T3 2.3 pg/mL (2.18-3.98); Glucose 105 mg/dL (74-106); Potassium 3.8 mmol/L (3.5-5.1); Sodium Level 140 mmol/L (136-145); T4 Free Direct 0.84 ng/dL (0.76-1.46); Thyroid Stim Hormone (TSH) 1.19 uIU/mL (0.358-3.74)
== END | disposition home or self-care (01) ==
PROVIDERS: PCP Family Medicine; Referring Provider Physician Assistant Medical; Visit Provider Physician Assistant Medical
DX: R06.09 Other forms of dyspnea (principal); R53.83 Other fatigue; E78.2 Mixed hyperlipidemia
CPT/HCPCS: 36415; 80048; 83880; 84439; 84443; 84481; 85025

== ENCOUNTER → 2023-08-30 | Outpatient (CLI) | payer MEDICARE, SELFPAY ==
--- NOTE | 2023-08-30 07:23 | ECHOCS_ITS ---
Reason For Study: DYSPNEA Procedure This was a 2D Doppler, Color Flow transthoracic echocardiogram. Contrast injection was performed. The study was technically difficult. Exam performed in department. Left Ventricle Normal LV size. Left ventricular systolic function is normal. The left ventricular ejection fraction is 65 %. Stage 1 diastolic dysfunction. No regional wall motion abnormalities noted. Right Ventricle Normal RV size. Normal systolic function. Tricuspid Valve Normal tricuspid valve. Mild tricuspid valve insufficiency. Pulmonary artery systolic pressure is 25 mmHg. Pulmonic Valve The pulmonic valve is not well visualized. Great Vessels Normal aortic root. Pericardium/Pleural No pericardial effusion. Medication Diluted definity 2ml given slow IV push to enhance endocardial definition. MMode/2D Measurements & Calculations LVIDd: 4.7 cm IVSd: 1.3 cm Ao root diam: 3.9 cm LVIDs: 3.1 cm LVPWd: 1.5 cm FS: 35.1 % LAV(MOD-sp4): 45.4 ml SV(MOD-sp4): 69.1 ml LVAd ap4: 32.6 cm2 LVLd ap4: 8.5 cm EDV(MOD-sp4): 102.7 ml EDV(sp4-el): 106.0 ml LVAs ap4: 16.7 cm2 LVLs ap4: 7.0 cm ESV(MOD-sp4): 33.5 ml ESV(sp4-el): 33.9 ml EF(MOD-sp4): 67.3 % EF(sp4-el): 68.0 % SV(sp4-el): 72.1 ml LA dimension(2D): 3.7 cm LA A4 area: 17.9 cm2 TAPSE: 2.1 cm RA A4 area: 14.4 cm2 Time Measurements MV dec time: 0.33 sec Doppler Measurements & Calculations MV E max ron: 49.1 cm/sec Lat Peak E' Ron: 11.4 cm/sec Med Peak E' Ron: 8.9 cm/sec MV A max ron: 87.6 cm/sec E/E' lat: 4.3 E/E' med: 5.5 MV E/A: 0.56 MV V2 max: 93.7 cm/sec Ao V2 max: 115.2 cm/sec MV max P.5 mmHg MV dec slope: 149.1 cm/sec2 Ao max P.3 mmHg MV V2 mean: 49.8 cm/sec Ao V2 mean: 79.1 cm/sec MV mean P.1 mmHg Ao mean P.9 mmHg MV V2 VTI: 24.7 cm Ao V2 VTI: 26.8 cm AV (velocity ratio): 0.83 LV V1 max: 95.1 cm/sec PA V2 max: 108.8 cm/sec TR max ron: 238.8 cm/sec LV V1 max P.6 mmHg PA V2 mean: 73.2 cm/sec TR max P.8 mmHg LV V1 mean P.9 mmHg LV V1 mean: 63.6 cm/sec LV V1 VTI: 22.1 cm ECHO/Echo Complete W/ Contrast Interpretation Summary Normal LV size. Left ventricular systolic function is normal. The left ventricular ejection fraction is 65 %. Stage 1 diastolic dysfunction. Contrast injection was performed. Ordering Physician: Lakesha Bettencourt Referring Physician: Lakesha Bettencourt Performed By: Darshana Dong RCS
--- NOTE | 2023-08-30 12:32 | STRESSREP ---
Stress Test Report Pharmacologic myocardial perfusion stress test. 78-year-old man with a history of dyspnea Resting EKG demonstrates normal sinus rhythm with a rate of 64 bpm. Resting blood pressure is 142/70 mmHg. 0.4 mg of regadenoson was infused per usual protocol followed by rapid intravenous saline flush injection. Continuous EKG monitoring was performed. The maximum heart rate was 77 bpm which was 54% of max impacted heart rate the maximum workload was 1 metabolic equivalent. At rest there were no ST or T wave changes noted to suggest ischemia and at peak infusion nonspecific ST changes were noted which did not meet the criteria for ischemia. No clinical angina is noted. The final blood pressure was 122/68 mmHg. Myocardial perfusion protocol. 11.6 mCi of technetium 99m sestamibi was injected at rest. 0.4 mg of regadenoson was infused per usual protocol. At peak infusion 33.7 mCi of technetium 99m sestamibi was injected stress images were obtained stress and rest images were reconstructed and compared in the short axis vertical long and horizontal long axis. Gated images were also obtained. Perfusion SPECT analysis: Review of the stress images demonstrate normal uptake of tracer noted in all areas of the myocardium. The resting images similar demonstrated normal uptake of tracer noted in all areas of the myocardium. No areas of reversibility are noted to suggest ischemia and no previous infarct is noted. Gated SPECT analysis: The gated ejection fraction is 72%. Conclusion: Normal pharmacologic myocardial perfusion stress test. Preserved ejection fraction.
== END | disposition home or self-care (01) ==
PROVIDERS: PCP Family Medicine; Referring Provider Physician Assistant Medical; Visit Provider Physician Assistant Medical
DX: R06.09 Other forms of dyspnea (principal); R53.83 Other fatigue
CPT/HCPCS: 78452; 93017; 93306; A9500; Q9957; A4216; C8929; J2785

== ENCOUNTER → 2023-09-11 | Outpatient (CLI) | payer MEDICARE, SELFPAY ==
[2023-09-11 16:17] LABS: BNP,B-Type NATRIURETIC PEPTIDE 74.7 pg/mL (0-100)
[2023-09-11 16:19] LABS: Anion Gap 7 (5-15); BUN 55 mg/dL (7-18); BUN/Creat Ratio 32.2 RATIO (10-20); Calcium,Total 8.8 mg/dL (8.5-10.1); Chloride 105 mmol/L (98-107); Creatinine, Serum 1.71 mg/dL (0.70-1.30); EST Glomerular Filtration Rate 41 mL/min (>60); Est Glom Filt Rate - Afr Amer 50 mL/min (>60); Glucose 120 mg/dL (74-106); Potassium 4.4 mmol/L (3.5-5.1); Sodium Level 138 mmol/L (136-145)
== END | disposition home or self-care (01) ==
LOC: LAB 14:33
PROVIDERS: PCP Family Medicine; Referring Provider Internal Medicine Cardiovascular Disease; Visit Provider Internal Medicine Cardiovascular Disease
DX: I50.30 Unspecified diastolic (congestive) heart failure (principal)
CPT/HCPCS: 36415; 80048; 83880

== ENCOUNTER → 2023-09-26 | Outpatient (CLI) | payer MEDICARE, SELFPAY ==
[2023-09-26 11:11] LABS: Anion Gap 6 (5-15); BUN 31 mg/dL (7-18); BUN/Creat Ratio 19.7 RATIO (10-20); Calcium,Total 9.1 mg/dL (8.5-10.1); Chloride 113 mmol/L (98-107); Creatinine, Serum 1.57 mg/dL (0.70-1.30); EST Glomerular Filtration Rate 46 mL/min (>60); Est Glom Filt Rate - Afr Amer 55 mL/min (>60); Glucose 93 mg/dL (74-106); Potassium 4.2 mmol/L (3.5-5.1); Sodium Level 143 mmol/L (136-145)
== END | disposition home or self-care (01) ==
LOC: LAB 09:56
PROVIDERS: PCP Family Medicine; Referring Provider Physician Assistant Medical; Visit Provider Physician Assistant Medical
DX: I50.32 Chronic diastolic (congestive) heart failure (principal)
CPT/HCPCS: 80048

== ENCOUNTER → 2023-11-28 | Outpatient (CLI) | payer MEDICARE, SELFPAY ==
--- NOTE | 2023-11-28 16:31 | RAD_ITS ---
INDICATION: COUGH EXAMINATION/TECHNIQUE: X-RAY - XR Chest 2 Views COMPARISON: No relevant prior comparison study available FINDINGS: LINES/DEVICES: None. LUNGS: Low lung volumes. Calcified granulomas are noted. No consolidation, edema or effusion. No pneumothorax. MEDIASTINUM AND CARDIOVASCULAR STRUCTURES: Cardiac silhouette not enlarged. Aortic calcifications are seen. Central airways and mediastinal contour are unremarkable. BONES AND SOFT TISSUES: No acute abnormality. RAD/Chest PA and Lateral IMPRESSION: No acute pulmonary finding. Electronically Signed: Arsh Pitts MD at 16:47 EDT ,
== END | disposition home or self-care (01) ==
LOC: MTRAD 16:30
PROVIDERS: PCP Family Medicine; Referring Provider Internal Medicine Pulmonary Disease; Visit Provider Internal Medicine Pulmonary Disease
DX: R05.9 Cough, unspecified (principal)
CPT/HCPCS: 71046

== ENCOUNTER → 2024-09-22 | Outpatient (CLI) | payer MEDICARE, SELFPAY ==
[2024-09-22 11:46] LABS: AST(SGOT) 25 U/L (<=37); Alanine Aminotransfer ALT/SGPT 19 U/L (<=46); Albumin, Serum 3.8 g/dL (3.4-4.8); Alkaline Phosphatase 86 U/L (40-129); Bilirubin, Direct 0.27 mg/dL (0.00-0.30); Cholesterol 132 mg/dL (<=200); Globulin 3.0 g/dL (2.2-4.2); Low Density Lipoprotein Calc. 62 mg/dL; Triglycerides 101 mg/dL; Very Low Density Lipoprotein 20 mg/dL (5-40); cholesterol:hdl ratio screen 2.66
== END | disposition home or self-care (01) ==
LOC: LAB 09:15
PROVIDERS: PCP Family Medicine; Referring Provider Internal Medicine Cardiovascular Disease; Visit Provider Internal Medicine Cardiovascular Disease
DX: I25.10 Atherosclerotic heart disease of native coronary artery without angina pectoris (principal); Z96.81 Presence of artificial skin; E78.2 Mixed hyperlipidemia
CPT/HCPCS: 36415; 80061; 80076

== ENCOUNTER 2024-10-19 07:20 | Emergency (ER) | payer MEDICARE, SELFPAY ==
[2024-10-19] VITALS (7 sets, daily range): BP systolic 115–183; BP diastolic 64–94; PULSE 52–84; RESP 14–18; TEMP 37; O2SAT 93–100; BMI 30.7
--- NOTE | 2024-10-19 07:31 | CT_ITS ---
PROCEDURE: ABDOMEN/PELVIS WITHOUT CONT 10/19/2024 REASON FOR EXAM: RIGHT LOWER QUADRANT ABDOMINAL PAIN TECHNIQUE: ABDOMEN/PELVIS WITHOUT CONT Noncontrast technique limits evaluation of the abdominal and pelvic viscera. Coronal and Sagittal reconstruction series were provided. One or more dose reduction techniques were used (e.g., Automated exposure control, adjustment of the mA and/or kV according to patient size, use of iterative reconstruction technique). RADIATION DOSE SUMMARY: CTDlvol: 11.52 mGy DLP: 714.15 mGycm COMPARISON: None FINDINGS: Lung bases: Chronic interstitial changes in the lung bases with granulomatous calcifications, and dependent atelectasis. Dense coronary artery calcifications noted. Liver: Normal size. No obvious mass. Gallbladder: Unremarkable Spleen: Normal size. Pancreas: Normal size. No surrounding inflammation. Adrenals: Unremarkable Kidneys: Left kidney is free of obstructive uropathy or suspicious solid renal lesion. There are scattered simple cortical cysts which need no specific follow-up. The right kidney however shows hydronephrosis and hydroureter with perinephric and Sarah ureteral inflammatory stranding. There is a 1.2 cm calcification in the proximal right ureter seen on axial image 104 and coronal recon image 61. In the distal right ureter there are also 2 other separate stones each measuring a proximally 4 mm seen on coronal recon image 82 and axial images 157 through 162. There are multiple nonobstructing right renal stones measuring between 0.2 and 1.0 cm. There are also multiple simple cortical cysts in the right kidney which need no specific follow-up. Bladder: Bladder distends normally Reproductive Organs: The prostate is not significantly enlarged but shows multiple chunky calcifications suggesting chronic prostatitis. Bowel: Bowel loops are unremarkable. No ileus or obstruction. No acute inflammation. Scattered sigmoid diverticula without CT evidence of acute diverticulitis. Appendix: Normal appendix seen on coronal recon images 45 through 48. Lymph nodes: No suspicious mesenteric or retroperitoneal lymph nodes Vasculature: Peripheral calcifications in the abdominal aorta without aneurysm. Peritoneum / Retroperitoneum: No free fluid or air Bones: Degenerative bony changes Prominent right inguinal hernia which contains fat and the majority of the terminal ileum. No acute inflammation is noted. There is a small fat containing left inguinal hernia. CT/Abdomen/Pelvis without Cont IMPRESSION: Right-sided hydronephrosis and hydroureter with perinephric and Sarah ureteral i nflammatory stranding. There is a 1.2 cm stone in the proximal right ureter and 2 separate 4 mm stones in the distal right ureter . Urologic consultation recommended Prominent right inguinal hernia containing a majority of the terminal ileum. H owever there is no acute inflammation or evidence of associated ileus or obstruction Bilateral nonobstructing renal stones, bilateral cortical cysts, no specific fo llow-up needed. No free intraperitoneal fluid, air, or suspicious adenopathy, normal appendix v isualized Degenerative bony changes Findings: Multiple obstructing right ureteral stones, right inguinal hernia con taining terminal ileum The critical information above was relayed directly by me by telephone to Juan M Leahy on 10/19/2024 at 9:08 am with readback verification. gs: Reading Location: [id number]
--- NOTE | 2024-10-19 07:39 | EX.ED.DYSGE1 ---
HPI History of Present Illness Chief Complaint: Abd Pain Narrative Narrative: Chief complaint and HPI: Right lower quadrant abdominal pain. 79-year-old male with past medical history of dementia, depression, heart failure, HTN, HLD, BPH presents for evaluation right lower quadrant abdominal pain. Onset yesterday. Associated symptoms of nausea without emesis. Endorses constipation as well as diarrhea. Denies any fever, chills, shortness of breath, chest pain, dysuria, hematuria. Has never had any abdominal surgeries. Review of systems: See HPI Medications: As listed on the chart Allergies: As listed on the chart PFSH: Per chart Vital signs: As listed on the chart. Reviewed. Physical exam: Gen: A&O x3, NAD Head: Normocephalic, atraumatic Eyes: No sclera icterus, conjunctiva clear ENT: Moist mucous membranes Neck: Trachea midline, No JVD CV: RRR, no murmurs, no peripheral edema Resp: Lungs CTA BL, no w/r/c GI: Abd soft, non-distended, mildly tender to palpation diffusely, no r/r/g : Circumcised penis. No penile tenderness or discharge. No penile or testicular swelling. Normal lie and position of the testicles. No testicular tenderness, masses, or skin changes. Cremasteric reflexes intact and equal bilaterally. No rashes Musc: Full ROM, no deformity Skin: Warm, dry Neuro: Alert, oriented, grossly intact, sensation intact Psych: Cooperative, appropriate mood and affect [facility] Medical History Gout Essential hypertension Hyperlipidemia PSVT (paroxysmal supraventricular tachycardia) DIAN (acute kidney injury) Coronary arteriosclerosis after percutaneous transluminal coronary angioplasty (PTCA) Rhabdomyolysis Dementia CVA (cerebral vascular accident) Kidney calculi Home Medications ?Medication ?Instructions ?Recorded ?Last Taken ?Type allopurinol 300 mg tablet 300 mg PO DAILY gout 04/12/23 10/18/24 History aspirin 81 mg capsule 81 mg PO DAILY heart health 04/12/23 10/18/24 History atorvastatin 20 mg tablet 20 mg PO DAILY cholesterol 04/12/23 10/18/24 History donepezil 10 mg tablet 10 mg PO QHS dementia 04/12/23 10/18/24 History memantine 5 mg tablet 5 mg PO BID dementia 04/12/23 10/18/24 History tamsulosin 0.4 mg capsule 0.4 mg PO DAILY urination 04/12/23 10/18/24 History timolol maleate 0.5 % eye drops 1 drp ophthalmic (eye) BID eye 04/12/23 10/18/24 History health losartan 25 mg tablet 25 mg PO DAILY #90 tabs 05/22/23 10/18/24 Rx vitamin B complex 1 tab PO DAILY 07/23/23 10/18/24 History buspirone 7.5 mg tablet 7.5 mg PO BID 09/11/23 10/18/24 History empagliflozin 10 mg tablet 10 mg PO QAM #90 tabs 09/12/23 10/18/24 Rx (Jardiance) metoprolol succinate 25 mg 25 mg PO BID 12/12/23 10/18/24 History tablet,extended release 24 hr latanoprost 0.005 % eye drops 1 drp ophthalmic (eye) QHS 09/18/24 10/18/24 History benzonatate 100 mg capsule 100 mg PO Q8H PRN PRN cough 10/19/24 Unknown History cyanocobalamin-liver extract tablet 1 tab PO BID 10/19/24 10/18/24 History fluoride (sodium) 1.1 % dental gel 1 applic PO QHS 10/19/24 Unknown History fluticasone furoate 100 1 ea inhalation DAILY 10/19/24 10/18/24 History mcg-vilanterol 25 mcg/dose inhalation powder (Breo Ellipta) garlic 580 mg capsule 48 mg PO BID 10/19/24 10/18/24 History omega-3s 300 hu-[id number]-[id number]-other 2 cap PO BID 10/19/24 10/18/24 History [id number] oil 1,000 mg capsule ([place]-3 Fish Oil) Allergy/AdvReac Type Severity Reaction Status Date / Time No Known Allergies Allergy Verified 10/19/24 07:20 Family History Father , Age 68 Myocardial infarction Brother Cancer Sister Cancer Mother Lung disease Surgical History History of heart artery stent (~2010) Social History Smoking Status: Never smoker second hand exposure: Yes alcohol intake: never substance use type: does not use caffeine: Yes Type: carbonated beverages and coffee EXAM Physical Exam Const Vital Signs: 10/19/24 07:21 10/19/24 09:20 Temperature 98.6 F Temperature Source Oral Pulse Rate 54 L 52 L Respiratory Rate 18 14 Blood Pressure 183/75 H 118/64 Blood Pressure Mean 111 82 Pulse Ox 98 93 Oxygen Delivery Method Room Air Room Air MDM MDM MDM Narrative Medical decision making narrative: 79-year-old male with past medical history of dementia, depression, heart failure, HTN, HLD, BPH presents for evaluation right lower quadrant abdominal pain. Differential diagnosis includes but is not limited to appendicitis, gastroenteritis, colitis, constipation, obstruction, UTI, urolithiasis, pancreatitis, electrolyte abnormality. NS bolus and Zofran ordered. Abdominal pain workup ordered including CT abdomen and pelvis. CBC with mild leukocytosis of 12.5. No anemia. Mild thrombocytopenia of 149. Patient has had thrombocytopenia in the past. CMP shows hyperkalemia 5.5 although this is hemolyzed. He has a BUN of 42 and a creatinine of 2.31. On chart review in 2023 his creatinine was 1.57. Patient and now in the room do not know his baseline creatinine. Although patient states it was good the last time he was seen, this may be DIAN on CKD versus just chronic CKD. Lactic acid unremarkable. Lipase unremarkable. Mild AST transaminitis of 41. UA negative for UTI but positive for blood. CT abdomen and pelvis with IV contrast was changed to CT abdomen pelvis without given patient's renal function. He has right sided hydronephrosis and hydroureter with perinephritic and periureteral inflammatory stranding. 1.2 cm stone in the proximal right ureter, 2 separate 4 mm stones in the distal right ureter. He has a prominent right inguinal hernia containing a majority of the terminal ileum. However no inflammation or evidence of obstruction. On reevaluation, patient states his pain is improved. Patient will likely need admission with urology consult. I do not have urology on-call. Patient would like to go to [facility]. I reached out to [facility] urology, Dr. Jimenez. Plan is likely surgery tomorrow. Okay to eat today. Agrees he will need to be admitted to the hospitalist service. Talk to Dr. Lugo who accepted admission. Patient and updated all the results and the plan. Patient will be transferred to [facility]. Impression: 1. Multiple right ureterolithiasis with right-sided hydronephrosis and hydroureter with perinephric and periureteral inflammatory stranding 2. DIAN on CKD versus CKD Lab Data Labs: Laboratory Results - last 24 hr 10/19/24 10/19/24 07:35 09:45 WBC 12.5 H RBC 4.46 L Hgb 15.7 Hct 46.7 MCV 104.7 H MCH 35.2 H MCHC 33.6 RDW Std Deviation 56.0 H RDW Coeff of Ese 14.4 Plt Count 149 L MPV 9.0 Immature Gran % (Auto) 0.400 Neut % (Auto) 85.0 H Lymph % (Auto) 5.4 L [place] % (Auto) 8.8 Eos % (Auto) 0.2 Baso % (Auto) 0.2 Absolute Neuts (auto) 10.6 H Absolute Lymphs (auto) 0.68 L Nucleated RBC % 0 Sodium 141 Potassium 5.5 H Chloride 106 Carbon Dioxide 21.9 Anion Gap 13 BUN 42 H Creatinine 2.31 H Estim Creat Clear Calc 28.52 L Est GFR (MDRD) Non-Af 28 L BUN/Creatinine Ratio 18.1 Glucose 113 H Lactic Acid 1.2 Calcium 9.5 Total Bilirubin 0.67 AST 41 H ALT 21 Alkaline Phosphatase 94 Total Protein 7.7 Albumin 4.1 Globulin 3.6 Albumin/Globulin Ratio 1.2 Lipase 50 Urine Color Yellow Urine Clarity Clear Urine pH 6.0 Ur Specific [place] 1.020 Urine Protein 30 H Urine Glucose (UA) 1000 H Urine Ketones Negative Urine Occult Blood 25 H Urine Nitrite Negative Urine Bilirubin Negative Urine Urobilinogen Normal Ur Leukocyte Esterase Negative Urine RBC 0-5 SEEN Urine WBC 0-5 SEEN Ur Squamous Epith Cells 0 SEEN Urine Bacteria 0 SEEN Urine Mucus 0 SEEN Radiography Diagnostic Testing: Clinical Impression(s) from Imaging Studies Abdomen/Pelvis CT 10/19/24 07:31 IMPRESSION: Right-sided hydronephrosis and hydroureter with perinephric and Sarah ureteral inflammatory stranding. There is a 1.2 cm stone in the proximal right ureter and 2 separate 4 mm stones in the distal right ureter. Urologic consultation recommended Prominent right inguinal hernia containing a majority of the terminal ileum. However there is no acute inflammation or evidence of associated ileus or obstruction Bilateral nonobstructing renal stones, bilateral cortical cysts, no specific follow-up needed. No free intraperitoneal fluid, air, or suspicious adenopathy, normal appendix visualized Degenerative bony changes Findings: Multiple obstructing right ureteral stones, right inguinal hernia containing terminal ileum The critical information above was relayed directly by me by telephone to Juan M Hirsch on 10/19/2024 at 9:08 am with readback verification. gs: Reading Location: [facility] Discharge Plan Triage Chief Complaint: Abd Pain ED Provider: Juan M Hirsch Dx/Rx/DC Orders Prescriptions: No Action losartan 25 mg tablet 25 mg PO DAILY Qty: 90 3RF vitamin B complex Tablet 1 tab PO DAILY buspirone 7.5 mg tablet 7.5 mg PO BID metoprolol succinate 25 mg tablet extended release 24 hr 25 mg PO BID latanoprost 0.005 % drops 1 drp ophthalmic (eye) QHS allopurinol 300 mg tablet 300 mg PO DAILY Patient Comments: take 1 tablet by mouth once daily atorvastatin 20 mg tablet 20 mg PO DAILY Patient Comments: take 1 tablet by mouth once daily donepezil 10 mg tablet 10 mg PO QHS Patient Comments: take 1 tablet by mouth at bedtime memantine 5 mg tablet 5 mg PO BID Patient Comments: take 1 tablet by mouth twice a day tamsulosin 0.4 mg capsule 0.4 mg PO DAILY Patient Comments: take 1 capsule by mouth once daily timolol maleate 0.5 % drops 1 drp ophthalmic (eye) BID Patient Comments: instill 1 drop into both eyes twice a day aspirin 81 mg capsule 81 mg PO DAILY benzonatate 100 mg capsule 100 mg PO Q8H PRN PRN (Reason: cough) fluoride (sodium) 1.1 % gel 1 applic PO QHS fluticasone furoate-vilanterol [Breo Ellipta] 100-25 mcg/dose blister with device 1 ea INHALATION DAILY cyanocobalamin-liver extract Tablet 1 tab PO BID [place]-3 Fish Oil 300-1,000 mg capsule 2 cap PO BID garlic 580 mg capsule 48 mg PO BID Jardiance 10 mg tablet 10 mg PO QAM Qty: 90 3RF Primary Care Provider: Julio Mera Referrals: Julio Mera MD [Primary Care Provider] - Print Language: Japanese
[2024-10-19 07:43] LABS: Hematocrit 46.7 % (40-54); Hemoglobin 15.7 g/dL (13.0-16.5); Immature Granulocytes Count 0.050 X10^3/uL (0.0-0.0); Mean Corp Hgb Conc 33.6 g/dL (32-36); Mean Corpuscular Volume 104.7 fL (80-94); Mean Platelet Vol. 9.0 fl (6.2-12.0); NRBC Flagged by Analyzer 0 % (0-5); Platelet Count 149 K/mm3 (150-450); RBC Distribution Width CV 14.4 % (11.6-14.6); RBC Distribution Width SD 56.0 fl (35.1-43.9); Red Blood Count 4.46 M/mm3 (4.6-6.2); White Blood Count 12.5 K/mm3 (4.4-11.0)
[2024-10-19] MEDS: 0.9% Normal Saline (1000mL) 1,000 ML 999 ML IV (07:43)
--- OUTSIDE RECORDS SUMMARY | 2024-10-19 08:02 | XMS RPT_ITS | CCD ---
Author Organization [facility] CliniSymt Care Team Providers Care Natural Developer Name Role Phone Jarrell Gray Unavailable Kiarra Ramos Primary Care Provider Jarrell Gray MD Unavailable Unavailable Campolo DO, Ramos Primary Care Provider Rosa Khan MD Unavailable [phone] Campolo DO, Ramos Primary Care Provider [phone] July DO, Kiarra Primary Care Provider Rosa Khan MD A Unavailable July DO, Korin Primary Care Provider [phone] CAMPOLO, RAMOS Referring Unavailable CAMPOLO, RAMOS Primary Care Unavailable GINNY HYLTON Attending Unavailable CAMPOLO, RAMOS Referring Unavailable YONY ALMARAZ Attending Unavailable CAMPOLO, RAMOS Primary Care Unavailable MAY, KIARRA Primary Care Unavailable FOOR, DARIN Referring Unavailable FOOR, DARIN Attending Unavailable FOOR, DARIN Admitting Unavailable CAMPOLO, RAMOS Primary Care Unavailable YOJANA BROOKS Attending Unavailable CAMPOLO, RAMOS Primary Care Unavailable FOOR, DARIN Attending Unavailable FOOR, DARIN Admitting Unavailable MAY, KIARRA Primary Care Unavailable ELEANOR HINSON Attending Unavailable MAY, KIARRA Referring Unavailable CAMPOLO, RAMOS Primary Care Unavailable KATHERIN NOBLE Attending Unavailable MAY, KIARRA Primary Care Unavailable MAY, KIARRA Referring Unavailable MAY, KIARRA Attending Unavailable CAMPOLO, RAMOS Referring Unavailable CAMPOLO, RAMOS Primary Care Unavailable ELEANOR HINSON Attending Unavailable DARION BASS Attending Unavailable MAY, KORIN Referring Unavailable MAY, KORIN Primary Care Unavailable DARION BASS Referring Unavailable JULY, KORIN Primary Care Unavailable DARION BASS Attending Unavailable JULY, KORIN Primary Care Unavailable EDE LEMOS, ANGELA Stallworth Primary Care Physician Dr. Angela Mera Primary Care Provider Dr. Cinthia Espinoza Attending Provider Dr. Willima Padilla Emergency Provider Koram, Dr. Tesha English Admit Provider Koram, Dr. Tesha English Other Provider Dr. Jack Fuller Attending Provider Dr. Jack Fuller Other Provider Korjayna, Dr. Tesha English Attending Provider Dr. Gagandeep Felder Other Provider Dr. Jesse Slade Attending Provider Dr. Jesse Slade Other Provider Dr. Angela Mera Primary Care Provider Dr. Cinthia Espinoza Attending Provider Dr. William Padilla Emergency Provider Koram, Dr. Tesha English Admit Provider Korjayna, Dr. Tesha English Other Provider Dr. Jack Fuller Attending Provider Dr. Jack Fuller Other Provider Koram, Dr. Tesha English Attending Provider Dr. Gagandeep Felder Other Provider Dr. Jack Fuller Referring Provider Dr. Jesse Slade Attending Provider Dr. Jesse Slade Other Provider Audie MANAGER AGENCY, MANAGER AGENCY-Keturah Lindsay Attending Provider Dr. Heath Mitchell Attending Provider Dr. Angela Mera Referring Provider Torito MANAGER AGENCY, MANAGER AGENCY-C Yojana Herrera Attending Provider Rut BAKER, OLIVIA Canela Attending Provider ANGELA MERA MD Attending Unavailable ANGELA MERA MD Primary Care Unavailable ANGELA MERA MD Attending Unavailable ANGELA MERA MD Primary Care Unavailable ANGELA MERA MD Attending Unavailable ANGELA MERA MD Primary Care Unavailable ANGELA MERA MD Attending Unavailable ANGELA MERA MD Primary Care Unavailable ANGELA MERA MD Attending Unavailable ANGELA MERA MD Primary Care Unavailable ANGELA MERA MD Attending Unavailable ANGELA MERA MD Primary Care Unavailable ANGELA MERA MD Attending Unavailable ANGELA MERA MD Primary Care Unavailable ANGELA MERA MD Primary Care Unavailable BRIDGET AGRONOMY RESEARCH MANAGER-STEEL WOOL MACHINE OPERATOR, JANET Attending Unavail able ANGELA MERA MD Primary Care Unavailable BRIDGET AGRONOMY RESEARCH MANAGER-STEEL WOOL MACHINE OPERATOR, JANET Attending Unavail able ANGELA MERA MD Attending Unavailable ANGELA MERA MD Primary Care Unavailable ANGELA MERA MD Attending Unavailable ANGELA MERA MD Primary Care Unavailable ANGELA MERA MD Primary Care Unavailable ANGELA MERA MD Attending Unavailable Ede LEMOS, Dr. Kim Primary Care Provider Dr. Angela Mera MD Referring Provider [phone] Dr. Jack Fuller MD Attending Provider Dr. Jack Fuller MD Referring Provider Angela Mera Referring Unavailable Angela Mera Primary Care Unavailable Jack Fuller Attending Angela Cunningham Referring Unavailable Angela Mera Primary Care Unavailable Lakesha Quintana Attending Unavail Angela Magallon Primary Care Unavailable Po Elmore V Referring Unavailable Po Elmore V Attending Unavailable Jack Fuller Attending Unavailable Angela Mera Primary Care Unavailable Jack Fuller Referring Unavailable Medications Current Medications Medication Drug Class(es) Dates Sig (Normalized) Sig (Original) 8 hr acetaminophen 650 mg extended release oral tablet (20 sources) Start: 12-04-2023 Tylenol 8 HR Arthritis Pain 650 mg oral tablet, extended release Dose : 1,300 mg = 2 tab(s), Oral, q8h, PRN as needed for pain, # 100 tab(s), 0 Refill(s) Start Date: 12/04/23 Status: Ordered Quantity: 100.0 Unit: tab(s) Repeat number: 1 take 1 tablet by ashu th three times daily as needed acetaminophen (TYLENOL) 650 MG CR tablet Take 650 mg by mouth 3 times daily as needed. 0 Active allopurinol 300 mg oral tablet (20 sources) Xanthine Oxidase Inhibitor Start: 04-12-2023 allopurinol 300 mg oral tablet Dose : 300 mg = 1 tab(s), Oral, qDay, # 90 tab(s), 3 Refill(s), Pharmacy: [facility] #[id number], 172, cm, 05/01/24 9:59:00 EST, Height, kg, 05/01/24 9:59:00 EST, Dosing Weight Start Date: 05/09/24 Status: Ordered Quantity: 90.0 Unit: tab(s) Repeat number: 4 Start: 01-05-2023 allopurinol 30 0 mg oral tablet Dose : 300 mg = 1 tab(s), Oral, qDay, # 90 tab(s), 0 Refill(s) Start Date: 01/05/23 Status: Ordered Start: 09-01-2013 take 1 tablet by ashu th once daily allopurinol (ZYLOPRIM) 300 MG tablet Take 1 tablet by mouth daily. 90 tablet 1 07/29/2020 Active allyl sulfide 1000 mg oral capsule (8 sources) Garlic 1000 MG CAPS Take 4,000 mg by mouth. 0 Active ascorbic acid 500 mg oral capsule (18 sources) Vitamin C Ascorbic Acid (VITAMIN C) 500 MG CAPS Take 1,000 mg by mouth. 0 Active aspirin 81 mg oral tablet (20 sources) Platelet Aggregation Inhibitor, Nonsteroidal Anti-inflammatory Drug Start: 04-12-2023 take 1 capsule by mouth once daily Aspirin 81 mg capsule Active 81 mg PO DAILY April 12, 2023 1:00am heart health Start: 01-05-2023 aspirin 81 mg oral delayed release tablet Dose : 81 mg = 1 tab(s), Oral, Daily, 0 Refill(s) Start Date: 01/05/23 Status: Ordered Repeat number: 1 Start: 08-20-2007 take 1 tablet by ashu th once daily aspirin 81 mg EC tablet ONE BY MOUTH ONCE A DAY 0 08/20/2007 Active atorvastatin 20 mg oral tablet (20 sources) HMG-CoA Reductase Inhibitor Start: 04-12-2023 take 1 tablet by mouth once daily Atorvastatin 20 mg tablet Active 20 mg PO DAILY April 12, 2023 1:00am cholesterol Start: 07-17-2011 End: 04-26-2022 take 1 tablet by mouth once daily atorvastatin (Lipitor) 20 mg tablet Take 1 tablet (20 mg total) by mouth 1 (one) time each day at the same time. 90 tablet 3 04/26/2021 04/26/2022 Active benzonatate 100 mg oral capsule (9 sources) Non-narcotic Antitussive Start: 04-23-2024 benzonatate 100 mg oral capsule Dose : 100 mg = 1 cap(s), Oral, q8h, PRN as needed for cough, # 60 cap(s), 1 Refill(s), Pharmacy: [facility] #[id number], 173, cm, 04/23/24 13:06:00 EST, Height, kg, 04/23/24 13:06:00 EST, Dosing Weight Start Date: 04/23/24 Status: Ordered Quantity: 60.0 Unit: cap(s) Repeat number: 2 Start: 04-12-2023 End: 09-11-2023 take 1 capsule by mouth three times daily as needed for cough Benzonatate 100 mg capsule Discontinued 100 mg PO 3 TIMES DAILY NEEDED as needed for cough April 12, 2023 1:00am September 11, 2023 1:29pm Breo Ellipta 100 mcg-25 mcg/inh inhalation powder (4 sources) Start: 01-25-2024 End: 01-19-2025 take 1 dose by inhalation once daily Breo Ellipta 100 mcg-25 mcg/inh inhalation powder Dose = 1 puff(s), Inhalation, Daily, # 1 EA, 11 Refill(s), Pharmacy: [facility], 173, cm, 01/25/24 9:05:00 EST, Height, kg, 01/25/24 9:05:00 EST, Dosing Weight Start Date: 01/25/24 Stop Date: 01/19/25 Status: Ordered Quantity: 1.0 Unit: EA Repeat number: 12 busPIRone hydrochloride 7.5 mg oral tablet (8 sources) Start: 09-11-2023 End: 11-20-2023 busPIRone 7.5 mg oral tablet Dose : 7.5 mg = 1 tab(s), Oral, BID, # 180 tab(s), 3 Refill(s), Pharmacy: [facility] #[id number], Anxiety, 173, cm, 01/25/24 9:05:00 EST, Height, kg, 01/25/24 9:05:00 EST, Dosing Weight Start Date: 04/21/24 Status: Ordered Quantity: 180.0 Unit: tab(s) Repeat number: 4 Indications: Anxiety disorder, unspecified; calcium chloride 0.0014 meq/ml / potassium chloride 0.004 meq/ml / sodium chloride 0.103 meq/ml / sodium lactate 0.028 meq/ml injectable solution (1 source) Start: 02-19-2019 lactated ringe rs infusion colchicine 0.6 mg oral tablet (7 sources) Start: 10-31-2019 Colchicine (CO LCRYS) 0.6 MG tablet Indications: Chronic gout of right foot, unspecified cause Take 1 tablet by mouth two times a day. Take 2 tablets at first sign of flare up then 1 tablet 1 hour later. Then bid 30 tablet 1 10/31/2019 Active docosahexaenoic acid 120 mg / eicosapentaenoic acid 180 mg oral capsule (8 sources) Olema-3 Fatty Ac ids (FISH OIL) 1000 MG CAPS Take 3,000 mg by mouth. 0 Active donepezil hydrochloride 10 mg oral tablet (14 sources) Start: 04-04-2023 End: 06-05-2025 take 1 tablet by mouth at bedtime Donepezil 10 mg tablet Active 10 mg PO AT BEDTIME April 12, 2023 1:00am dementia Start: 01-05-2023 donepezil 10 m g oral tablet Dose : 10 mg = 1 tab(s), Oral, qHS, # 90 tab(s), 0 Refill(s) Start Date: 01/05/23 Status: Ordered empagliflozin 10 mg oral tablet (10 sources) Sodium-Glucose Cotransporter 2 Inhibitor Start: 08-26-2024 Jardiance 10 mg oral tablet Dose : 10 mg = 1 tab(s), Oral, qAM, # 90 tab(s), 2 Refill(s), Pharmacy: [facility], 172, cm, 08/18/24 8:37:00 EDT, Height, kg, 08/18/24 8:37:00 EDT, Dosing Weight Start Date: 08/26/24 Status: Ordered Quantity: 90.0 Unit: tab(s) Repeat number: 3 Start: 09-11-2023 End: 09-12-2023 Jardiance 10 mg oral tablet Dose : 10 mg = 1 tab(s), Oral, qAM, # 90 tab(s), 2 Refill(s), Pharmacy: [facility], 173, cm, 01/25/24 9:05:00 EST, Height, kg, 01/25/24 9:05:00 EST, Dosing Weight Start Date: 01/25/24 Status: Ordered Quantity: 90.0 Unit: tab(s) Repeat number: 3 Fish Oils (10 sources) Start: 01-05-2023 Fish Oil 1000 mg oral capsule Dose : 1,000 mg = 1 cap(s), Oral, BID, # 90 cap(s), 0 Refill(s) Start Date: 01/05/23 Status: Ordered Quantity: 90.0 Unit: cap(s) Repeat number: 1 Start: 01-05-2023 Fish Oil 1000 mg oral capsule Dose : 1,000 mg = 1 cap(s), Oral, BID, # 90 cap(s), 0 Refill(s) Start Date: 01/05/23 Status: Ordered fluconazole 100 mg oral tablet (1 source) Azole Antifungal Start: 10-05-2023 End: 10-12-2023 fluconazole 100 mg oral tablet Dose : 100 mg = 1 tab(s), Oral, qDay, X 7 day(s), # 7 tab(s), 0 Refill(s), 10/12/23 10:07:00 AM EDT, [facility]acy: [facility] #[id number], UTI (urinary tract infection) Candidiasis, 173, cm, 10/05/23 9:26:00 EDT, Height, 96, kg, 10/05/23 9:26:00 EDT, Dosing Weight Start Date: 10/05/23 Stop Date: 10/12/23 Status: Ordered Fluticasone Furoate-Vilanterol (2 sources) Corticosteroid, beta2-Adrenergic Agonist Start: 12-12-2023 Fluticasone Furoate-Vilanterol (Breo Ellipta) 200-25 mcg/dose blister with device Active 1 NMA INHALATION daily December 12, 2023 12:00am Garlic preparation (15 sources) Non-Standardized Food Allergenic Extract Start: 11-29-2023 garlic oral capsule 0 Refill(s) Start Date: 11/29/23 Status: Ordered Repeat number: 1 Start: 11-29-2023 garlic oral ca psule 0 Refill(s) Start Date: 11/29/23 Status: Ordered Garlic 1000 MG C APS Take 4,000 mg by mouth. 0 Active Garlic 1000 MG C APS Take 4,000 mg by mouth. 0 Active hydroCHLOROthiazide 12.5 mg oral tablet (19 sources) Thiazide Diuretic Start: 09-08-2020 take 1 tablet by mouth once daily hydroCHLOROthiazide (HYDRODIURIL) 12.5 MG tablet Take 1 tablet by mouth daily. 30 tablet 0 09/08/2020 Active Start: 03-02-2020 take 1 tablet by ashu th once daily hydroCHLOROthiazide (HYDRODIURIL) 12.5 MG tablet Take 1 tablet by mouth daily. 90 tablet 1 03/02/2020 Active Start: 09-02-2019 take 1 tablet by ashu th once daily hydroCHLOROthiazide (HYDRODIURIL) 12.5 MG tablet Take 1 tablet by mouth daily. 90 tablet 1 09/02/2019 Active Start: 03-05-2018 End: 04-19-2021 hydroCHLOROthiazide (Microzi de) 12.5 mg capsule 1 capsule 1 (one) time each day at the same time. 0 03/05/2018 04/19/2021 Discontinued (Formulary change) take 1 tablet by ashu th once daily hydrochlorothiazide (HYDRODIURIL) 12.5 MG tablet Take 12.5 mg by mouth daily. 0 Active latanoprost 0.05 mg/ml ophthalmic solution (6 sources) Prostaglandin Analog Start: 09-18-[address] 0.005 % drops Active 1 NMA OPHTHALMIC AT BEDTIME September 18, 2024 12:00am Start: 05-01-2024 take 0.5 [IU] into t he eye(s) once daily at bedtime latanoprost 0.005% ophthalmic solution Dose = 1 drop(s), Eyes, both, qHS, # 2.5 mL, 0 Refill(s) Start Date: 05/01/24 Status: Ordered Quantity: 2.5 Unit: mL Repeat number: 1 levoFLOXacin 750 mg oral tablet (1 source) Quinolone Antimicrobial Start: 08-05-2024 End: 08-15-2024 levoFLOXacin 750 mg oral tablet Dose : 750 mg = 1 tab(s), Oral, q24h, X 10 day(s), # 10 tab(s), 0 Refill(s), 08/15/24 5:13:00 PM EDT, [facility]acy: [facility] #[id number], Right lower lobe pneumonia Wheezing, 172, cm, 08/05/24 16:23:00 EDT, Height, 87.2, kg, 08/05/24 16:23:00 EDT, Dosing Weight Start Date: 08/05/24 Stop Date: 08/15/24 Status: Ordered Quantity: 10.0 Unit: tab(s) Repeat number: 1 Indications: Pneumonia, unspecified organism; Wheezing; losartan potassium 25 mg oral tablet (18 sources) Angiotensin 2 Receptor Gerard Start: 05-22-2023 End: 05-22-2023 losartan 25 mg oral tablet Dose : 25 mg = 1 tab(s), Oral, qDay, # 90 tab(s), 1 Refill(s), [facility]acy: [facility] #[id number], 172, cm, 05/01/24 9:59:00 EST, Height, kg, 05/01/24 9:59:00 EST, Dosing Weight Start Date: 05/09/24 Status: Ordered Quantity: 90.0 Unit: tab(s) Repeat number: 2 Start: 05-22-2023 End: 05-22-2023 take 1 tablet by mouth once daily Losartan 50 mg tablet Discontinued 50 mg PO DAILY May 22, 2023 1:00am May 22, 2023 12:54pm Start: 05-18-2023 losartan 50 mg oral tablet Dose : 50 mg = 1 tab(s), Oral, qDay, # 30 tab(s), 5 Refill(s), Pharmacy: [facility] #[id number], NSTEMI (non-ST elevated myocardial infarction) Influenza A, 173, cm, 05/18/23 10:42:00 EST, Height, kg, 05/18/23 10:42:00 EST, Dosing Weight Start Date: 05/18/23 Status: Ordered magnesium oxide 400 mg oral capsule (18 sources) Magnesium Oxide 400 MG CAPS Take by mouth. 0 Active memantine hydrochloride 5 mg oral tablet (14 sources) E-ahjqvi-R-aspartate Receptor Antagonist Start: 04-07-2023 memantine 5 mg oral tablet Dose : 5 mg = 1 tab(s), Oral, BID, # 180 tab(s), 0 Refill(s), [facility]acy: [facility] #[id number], 172, cm, 08/05/24 16:23:00 EDT, Height, kg, 08/05/24 16:23:00 EDT, Dosing Weight Start Date: 08/06/24 Status: Ordered Quantity: 180.0 Unit: tab(s) Repeat number: 1 Start: 01-05-2023 memantine 5 mg oral tablet Dose : 5 mg = 1 tab(s), Oral, BID, # 60 tab(s), 0 Refill(s) Start Date: 01/05/23 Status: Ordered 24 hr metoprolol succinate 25 mg extended release oral tablet (20 sources) beta-Adrenergic Gerard Start: 12-12-2023 take 1 tablet by mouth twice daily Metoprolol Succinate 25 mg tablet extended release 24 hr Active 25 mg PO TWICE A DAY December 12, 2023 12:00am Start: 01-05-2023 End: 12-12-2023 take 1 tablet by mouth twice daily Metoprolol Tartrate 25 mg tablet Discontinued 25 mg PO TWICE A DAY April 12, 2023 1:00am December 12, 2023 1:40pm blood pressure Start: 07-29-2020 take 1 tablet by ashu th twice daily Metoprolol Tartrate (LOPRESSOR) 25 MG tablet Take 1 tablet by mouth two times a day. 180 tablet 1 07/29/2020 Active Start: 01-26-2020 take 1 tablet by ashu th twice daily Metoprolol Tartrate (LOPRESSOR) 25 MG tablet Take 1 tablet by mouth two times a day. 180 tablet 1 01/26/2020 Active Start: 08-04-2019 take 1 tablet by ashu th twice daily Metoprolol Tartrate (LOPRESSOR) 25 MG tablet Take 1 tablet by mouth two times a day. 180 tablet 1 08/04/2019 Active Start: 03-05-2018 metoprolol tar trate (Lopressor) 50 mg tablet every 12 (twelve) hours. 0 03/05/2018 Active take 1 tablet by ashu th twice daily Metoprolol Tartrate (LOPRESSOR) 50 MG tablet Take 50 mg by mouth two times a day. 0 Active take 1 tablet by ashu th once daily Metoprolol Tartrate (LOPRESSOR) 50 MG tablet Take 50 mg by mouth daily. 0 Active Multiple Vitamins-Minerals (ZINC PO) (7 sources) Multiple Vitamin s-Minerals (ZINC PO) Take by mouth. 0 Active 24 hr nitroglycerin 0.4 mg/hr transdermal system (20 sources) Nitrate Vasodilator Start: 06-17-2010 nitroglycerin (Nitrodur) 0.4 mg/hr patch one as needed 0 06/17/2010 Active nitroGLYCERIN (N ITROSTAT) 0.[address] 0.4 mg under the tongue every 5 minutes as needed for Chest pain. Take up to 3 doses if needed, or as directed by a physician 0 Active NONFORMULARY (20 sources) NONFORMULARY sha ckly-a MVI several extra vits per patient. 0 Active NONFORMULARY RX for toothpaste 0 Active NONFORMULARY Unc ker salve for feet 0 Active omega-3 acid ethyl esters (jail) 1000 mg oral capsule (10 sources) Olema-3 Fatty Ac ids (FISH OIL) 1000 MG CAPS Take 3,000 mg by mouth. 0 Active polyethylene glycol 3350 76913 mg powder for oral solution (18 sources) Osmotic Laxative Start: 01-23-20 19 polyethylene glycol 3350 (MIRALAX) powder Per colonoscopy instructions 255 g 0 01/22/2019 Active pravastatin sodium 80 mg oral tablet (11 sources) HMG-CoA Reductase Inhibitor pravastatin (PRAVACHOL) 80 MG tablet Take 40 mg by mouth daily. 0 Active predniSONE 20 mg oral tablet (1 source) Start: 08-06-19 End: 08-13-19 predniSONE 20 mg oral tablet Dose : 60 mg = 3 tab(s), Oral, qDay, X 7 day(s), # 21 tab(s), 0 Refill(s), 08/12/24 5:13:00 PM EDT, Pharmacy: [facility] #[id number], Right lower lobe pneumonia Wheezing, 172, cm, 08/05/24 16:23:00 EDT, Height, kg, 08/05/24 16:23:00 EDT, Dosing Weight Start Date: 08/05/24 Stop Date: 08/12/24 Status: Ordered Quantity: 21.0 Unit: tab(s) Repeat number: 1 Indications: Pneumonia, unspecified organism; Wheezing; sulfamethoxazole 800 mg / trimethoprim 160 mg oral tablet (5 sources) Dihydrofolate Reductase Inhibitor Antibacterial, Sulfonamide Antimicrobial Start: 10-05-19 End: 10-15-19 take 1 tablet by mouth twice daily Bactrim DS 800 mg-160 mg oral tablet Dose = 1 tab(s), Oral, BID, X 10 day(s), # 20 tab(s), 0 Refill(s), Pharmacy: [facility] #[id number], 173, cm, 10/05/23 9:26:00 EDT, Height, 96, kg, 10/05/23 9:26:00 EDT, Dosing Weight Start Date: 10/05/23 Stop Date: 10/15/23 Status: Ordered Start: 05-22-2023 End: 07-23-2023 Sulfamethoxazole-Trimethopri m 800-160 mg tablet Discontinued {tbl} PO May 22, 2023 1:00am July 23, 2023 8:37am Start: 05-22-2023 End: 07-23-2023 Sulfamethoxazole-Trimethopri m Discontinued TABLET PO May 22, 2023 1:00am July 23, 2023 8:37am Start: 05-18-2023 End: 06-01-2023 take 1 tablet by mouth twice daily Bactrim DS 800 mg-160 mg oral tablet Dos e = 1 tab(s), Oral, BID, X 14 day(s), # 28 tab(s), 0 Refill(s), Pharmacy: [facility] #[id number], 173, cm, 05/18/23 10:42:00 EST, Height, 91.4, kg, 05/18/23 10:42:00 EST, Dosing Weight Start Date: 05/18/23 Stop Date: 06/01/23 Status: Ordered tamsulosin hydrochloride 0.4 mg oral capsule (14 sources) alpha-Adrenergic Gerard Start: 02-15-2023 take 1 capsule by mouth once daily Tamsulosin 0.4 mg capsule Active 0.4 mg PO DAILY April 12, 2023 1:00am urination Timolol Maleate (20 sources) beta-Adrenergic Gerard Start: 04-12-2023 Timolol Maleate 0.5 % drops Active 1 NMA OPHTHALMIC TWICE A DAY April 12, 2023 1:00am eye health Start: 04-12-2023 Timolol Maleat e Active 1 DRP OPHTHALMIC TWICE A DAY April 12, 2023 1:00am Start: 04-12-2023 Timolol Maleat e Active 1 DRP OPHTHALMIC TWICE A DAY April 12, 2023 12:00am Start: 01-05-2023 take 1 dose into the eye(s) twice daily timolol maleate 0.5% ophthalmic solution Dose = 1 drop(s), Eyes, both, BID, # 10 mL, 0 Refill(s) Start Date: 01/05/23 Status: Ordered Start: 08-20-2007 timolol (Timop tic) 0.5 % ophthalmic solution every 12 (twelve) hours. 0 08/20/2007 Active apply 1 drop(s) into the eye(s) twice daily timolol (TIMOPTIC-XE) 0.5 % ophthalmic gel-forming Place 1 drop into both eyes two times a day. 0 Active Vitamin B 12 (18 sources) Vitamin B12 Cyanocobalamin ( VITAMIN B-12 PO) Take by mouth. 0 Active Vitamin B Complex (1 source) Start: 07-23-2023 take 1 tablet by mouth once daily Vitamin B Complex Active 1 TABLET PO DAILY July 23, 2023 12:00am Vitamin B Complex 100 (6 sources) Start: 10-05-2023 Vitamin B Complex 100 See Instructions, 0 Refill(s) Start Date: 10/05/23 Status: Ordered Repeat number: 1 Start: 10-05-2023 Vitamin B Comp dioni 100 See Instructions, 0 Refill(s) Start Date: 10/05/23 Status: Ordered Vitamin B Complex tablet (2 sources) Start: 07-23-2023 Vitamin B Comp dioni tablet Active 1 {tbl} PO DAILY July 23, 2023 12:00am vitamin b6 100 mg oral table t (18 sources) Pyridoxine HCl ( VITAMIN B-6) 100 MG tablet Take by mouth daily. 0 Active VITAMIN D, CHOLECALCIFEROL, PO (7 sources) VITAMIN D, JACKSON CALCIFEROL, PO Take by mouth. 0 Active vitamin e 100 unt oral capsu le (19 sources) Start: 10-05-2023 vitamin E 100 intl units oral capsule Dose : 100 unit(s) = 1 cap(s), Oral, Daily, 0 Refill(s) Start Date: 10/05/23 Status: Ordered take 1 capsule by mouth once martha ly vitamin E 400 UNITS capsule Take 400 Units by mouth daily. 0 Active Completed/Discontinued Medications Medication Drug Class(es) Dates Sig (Normalized) Sig (Original) [id number] 200 actuat albuterol 0.09 mg/actuat metered dose inhaler (4 sources) beta2-Adrenergic Agonist Start: 04-12-2023 End: 05-22-2023 Albuterol Sulfate 90 mcg/actuation HFA aerosol inhaler Discontinued 2 NMA INHALATION Q4H as needed for wheezing April 12, 2023 1:00am May 22, 2023 12:19pm Start: 04-12-2023 End: 05-22-2023 take 1 puff(s) by inhalation every four hours Albuterol Sulfate Discontinued 2 PUFF INHALATION Q4H April 12, 2023 1:00am May 22, 2023 12:19pm cetirizine hydrochloride 10 mg oral tablet (20 sources) Histamine-1 Receptor Antagonist Start: 04-12-2023 End: 05-22-2023 take 1 tablet by mouth once daily as needed Cetirizine 10 mg tablet Discontinued 10 mg PO DAILY as needed for allergy symptoms April 12, 2023 1:00am May 22, 2023 12:20pm Start: 01-05-2023 cetirizine 10 mg oral capsule Dose : 10 mg = 1 cap(s), Oral, qDay, PRN as needed for allergy symptoms, # 40 cap(s), 0 Refill(s) Start Date: 01/05/23 Status: Ordered Start: 07-28-2019 take 1 tablet by ashu th once daily cetirizine (ZYRTEC) 10 MG tablet Take 1 tablet by mouth daily. 90 tablet 3 10/27/2019 Active Start: 05-06-2019 take 1 tablet by ashu th once daily cetirizine (ZYRTEC) 10 MG tablet Take 1 tablet by mouth daily. 90 tablet 0 05/06/2019 Active End: 05-06-2019 take 1 tablet by mouth once daily cetirizine (ZYRTEC) 10 MG chewable tablet Take 10 mg by mouth daily. 0 05/06/2019 Discontinued Food Supplemt, Lactose-Reduc ed (Ensure Plus High Protein) 0.08 gram-1.5 kcal/mL Liquid (4 sources) Start: 04-18-2023 End: 05-22-2023 Food Supplemt, Lactose-Reduc ed (Ensure Plus High Protein) 0.08 gram-1.5 kcal/mL Liquid Discontinued 120 mL PO 4 TIMES DAILY 0 0 April 18, 2023 1:00am May 22, 2023 12:20pm Start: 04-18-2023 End: 05-22-2023 Food Supplemt, Lactose-Reduc ed (Ensure Plus High Protein) 0.08 gram-1.5 kcal/mL Liquid Discontinued 120 ML PO 4 TIMES DAILY 0 April 18, 2023 1:00am May 22, 2023 12:20pm Start: 04-18-2023 Food Supplemt, Lactose-Reduced (Ensure Plus High Protein) 0.08 gram-1.5 kcal/mL Liquid Active 120 ML PO 4 TIMES DAILY 0 April 18, 2023 12:00am furosemide 20 mg oral tablet (7 sources) Loop Diuretic Start: 07-23-2023 End: 09-12-2023 take 2 tablets by mouth once daily Furosemide (Lasix) 20 mg tablet Discontinued 40 mg PO DAILY July 23, 2023 8:55am September 12, 2023 3:03pm Start: 06-29-2023 End: 07-29-2023 take 1 tablet by mouth twice daily Furosemide (Lasix) 20 mg tablet Discontinued 20 mg PO TWICE A DAY July 23, 2023 12:00am July 23, 2023 8:56am hydroCHLOROthiazide 12.5 mg / losartan potassium 50 mg oral tablet (8 sources) Thiazide Diuretic, Angiotensin 2 Receptor Gerard Start: 04-12-2023 End: 04-18-2023 Losartan-Hydrochlorothiazide 50-12.5 mg tablet Discontinued 1 {tbl} PO DAILY April 12, 2023 1:00am April 18, 2023 1:42pm blood pressure Start: 04-12-2023 End: 04-18-2023 take 1 tablet by mouth once daily Losartan-Hydrochlorothiazide Discontinue d 1 TABLET PO DAILY April 12, 2023 1:00am April 18, 2023 1:42pm Start: 01-12-2023 take 1 tablet by ashu th once daily hydrochlorothiazide-losartan 12.5-50 mg oral tablet Dose = 1 tab(s), Oral, qDay, # 90 tab(s), 1 Refill(s), [facility]: [id number], 173, cm, 01/05/23 14:34:00 EDT, Height, kg, 01/05/23 14:34:00 EDT, Dosing Weight Start Date: 01/12/23 Status: Ordered Start: 04-19-2021 End: 04-19-2022 take 1 tablet by mouth once daily losartan-hydrochlorothiazide (Hyzaar) 50-12.5 mg tablet Take 1 tablet by mouth 1 (one) time each day. 90 tablet 3 04/19/2021 04/19/2022 Active LOCM iohexol (OMNIPAQUE 300 MG/ML) injection 100 mL (1 source) Start: 03-21-2019 End: 03-21-2019 LOCM iohexol (OMNIPAQUE 300 MG/ML) injection 100 mL methylPREDNISolone 4 mg oral tablet (4 sources) Corticosteroid Start: 04-12-2023 End: 05-22-2023 Methylprednisolone 4 mg tablets,dose pack Discontinued 4 mg PO April 12, 2023 1:00am May 22, 2023 12:20pm steriod On Hold: potassium chloride 10 meq extended release oral tablet (4 sources) Start: 07-23-2023 End: 12-12-2023 take 1 tablet by mouth twice daily Potassium Chloride 10 mEq tablet extended release Discontinued 10 meq PO TWICE A DAY July 23, 2023 12:00am December 12, 2023 1:41pm Start: 06-29-2023 potassium chlo ride 10 mEq oral capsule, extended release Dose : 10 mEq = 1 cap(s), Oral, BID, take with food., # 60 cap(s), 0 Refill(s), [facility]acy: [facility] #[id number], Generalized edema, 173, cm, 06/29/23 15:13:00 EDT, Height, kg, 06/29/23 15:13:00 EDT, Dosing Weight Start Date: 06/29/23 Status: Ordered tiZANidine 2 mg oral tablet (4 sources) Central alpha-2 Adrenergic Agonist Start: 01-25-2024 End: 02-04-2024 tiZANidine 2 mg oral tablet Dose : 2 mg = 1 tab(s), Oral, q8h, PRN as needed for muscle spasm, # 30 tab(s), 0 Refill(s), Pharmacy: [facility] #[id number], Left lumbar radiculitis Hyperuricemia, 173, cm, 01/25/24 9:05:00 EST, Height, kg, 01/25/24 9:05:00 EST, Dosing Weight Start Date: 01/25/24 Stop Date: 02/04/24 Status: Ordered Quantity: 30.0 Unit: tab(s) Repeat number: 1 Indications: Radiculopathy, lumbar region; Hyperuricemia without signs of inflammatory arthritis and tophaceous disease; Problems Active Problems Problem Classification Problem Date Documented Date Episodic/Chronic Acute and unspecified renal failure (6 sources) Acute renal failure syndrome; Translations: [Acute kidney failure, unspecified] 04-15-2023 Episodic Acute myocardial infarction (10 sources) Myocardial infarction 05-18-2023 Chronic Asthma (5 sources) Asthma 01-25-2024 Chronic Calculus of urinary tract (20 sources) Kidney stone; Translations: [Urinary bladder stone] Onset: 08-20-2007 03-18-2019 Episodic Cardiac dysrhythmias (6 sources) Paroxysmal supraventricular tachycardia; Translations: [Paroxysmal supraventricular tachycardia] 04-15-2023 Chronic Chronic kidney disease (13 sources) Chronic kidney disease stage 1; Translations: [Chronic kidney disease, stage 1] Onset: 05-06-2009 04-15-2021 Chronic Chronic ulcer of skin (1 source) Chronic ulcer of lower extremity; Translations: [Non-pressure chronic ulcer of other part of right lower leg with fat layer exposed] Chronic Congestive heart failure; nonhypertensive (14 sources) Congestive heart failure; Translations: [Heart failure, unspecified] Onset: 08-18-2024 06-21-2023 Chronic Coronary atherosclerosis and other heart disease (20 sources) Coronary arteriosclerosis; Translations: [Atherosclerotic heart disease of standing rock coronary artery without angina pectoris] Onset: 06-06-2010 10-20-2019 Chronic Coronary atherosclerosis and other heart disease (1 source) Coronary angioplasty status; Translations: [Coronary angioplasty status] Onset: 09-18-2024 Episodic Delirium, dementia, and amnestic and other cognitive disorders (11 sources) Dementia; Translations: [Unspecified dementia without behavioral disturbance] Onset: 07-04-2023 06-12-2023 Chronic Disorders of lipid metabolism (20 sources) Mixed hyperlipidemia; Translations: [Mixed hyperlipidemia] Onset: 08-07-2012 03-18-2019 Chronic Essential hypertension (20 sources) Essential hypertension; Translations: [Essential (primary) hypertension] Onset: 08-20-2007 03-18-2019 Chronic Genitourinary symptoms and ill-defined conditions (11 sources) Urinary incontinence 02-15-2023 Chronic Genitourinary symptoms and ill-defined conditions (12 sources) Microscopic hematuria; Translations: [Abnormal urinalysis] Onset: 10-05-2023 Episodic Glaucoma (20 sources) Primary open angle glaucoma; Translations: [Primary open-angle glaucoma, unspecified eye, stage unspecified] Onset: 02-17-2012 03-18-2019 Chronic Gout and other crystal arthropathies (20 sources) 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; Translations: [Gouty arthritis of multiple sites] Onset: 08-20-2007 10-20-2019 Chronic Hyperplasia of prostate (20 sources) Benign prostatic hyperplasia; Translations: [Weak urinary stream due to benign prostatic hypertrophy] Onset: 02-13-2018 02-13-2018 Chronic Influenza (10 sources) Influenza due to Influenza A virus 05-18-2023 Episodic Malaise and fatigue (19 sources) Asthenia; Translations: [Fatigue] Onset: 08-06-2024 05-18-2023 Episodic Mycoses (11 sources) Candidiasis; Translations: [Histoplasmosis] 10-05-2023 Episodic Osteoarthritis (4 sources) Osteoarthritis of knee; Translations: [Osteoarthritis of knee, unspecified] Onset: 03-24-2008 04-15-2021 Chronic Other circulatory disease (10 sources) Low blood pressure 05-18-2023 Episodic Other connective tissue disease (6 sources) History of total knee arthroplasty; Translations: [History of total bilateral knee replacement] Onset: 03-18-2019 03-18-2019 Chronic Other connective tissue disease (4 sources) History of bilateral total knee replacement; Translations: [Presence of artificial knee joint, bilateral] Onset: 03-18-2019 03-18-2019 Chronic Other connective tissue disease (14 sources) Rhabdomyolysis; Translations: [Rhabdomyolysis] 04-12-2023 Episodic Other connective tissue disease (2 sources) Rhabdomyolysis; Translations: [Rhabdomyolysis] 04-18-2023 Episodic Other connective tissue disease (5 sources) Pain in lower limb 12-04-2023 Episodic Other diseases of veins and lymphatics (8 sources) Stasis dermatitis 06-29-2023 Episodic Other ear and sense organ disorders (11 sources) Impacted cerumen 02-15-2023 Episodic Other hereditary and [...] [Rosacea, unspecified] Onset: 04-23-2006 04-15-2021 Chronic Other liver diseases (4 sources) Raised cardiac enzyme or marker; Translations: [Abnormal levels of other serum enzymes] 04-12-2023 Episodic Other liver diseases (2 sources) Abnormal levels of other serum enzymes; Translations: [Other nonspecific abnormal serum enzyme levels] 04-18-2023 Episodic Other lower respiratory disease (2 sources) Post-inflammatory pulmonary fibrosis; Translations: [Pulmonary fibrosis, unspecified] Onset: 02-28-2013 04-15-2021 Chronic Other lower respiratory disease (7 sources) Chronic cough; Translations: [Chronic cough] Onset: 04-30-2013 04-15-2021 Episodic Other lower respiratory disease (13 sources) Cough 05-14-2023 Episodic Other lower respiratory disease (9 sources) Dyspnea 06-21-2023 Episodic Other lower respiratory disease (3 sources) Dyspnea on exertion; Translations: [Other forms of dyspnea] 07-23-2023 Episodic Other lower respiratory disease (1 source) Other forms of dyspnea; Translations: [Other respiratory abnormalities] 07-23-2023 Episodic Other lower respiratory disease (4 sources) Wheezing 08-05-2024 Episodic Other lower respiratory disease (1 source) Wheezing; Translations: [Wheezing] Onset: 08-06-2024 Episodic Other non-traumatic joint disorders (11 sources) Hip pain 11-29-2023 Episodic Other nutritional; endocrine; and metabolic disorders (11 sources) Hyperuricemia 01-05-2023 Episodic Other upper respiratory disease (12 sources) Allergic rhinitis due to pollen; Translations: [Allergic rhinitis due to pollen] Onset: 03-18-2019 03-18-2019 Chronic Other upper respiratory disease (11 sources) Allergic rhinitis 01-05-2023 Chronic Other upper respiratory disease (2 sources) Allergic rhinitis, unspecified; Translations: [Allergic rhinitis, unspecified] Onset: 02-28-2023 Chronic Other upper respiratory infections (14 sources) Chronic ethmoidal sinusitis; Translations: [Chronic ethmoidal sinusitis] Onset: 03-07-2013 04-15-2021 Chronic Peripheral and visceral atherosclerosis (1 source) Peripheral vascular disease, unspecified; Translations: [Peripheral vascular disease, unspecified] Chronic Pneumonia (except that caused by tuberculosis or sexually transmitted disease) (5 sources) Right lower zone pneumonia; Translations: [Pneumonia, unspecified organism] Onset: 08-06-2024 08-05-2024 Episodic Residual codes; unclassified (18 sources) Obstructive sleep apnea syndrome; Translations: [Obstructive sleep apnea (adult) (pediatric)] Onset: 09-03-2019 09-03-2019 Chronic Residual codes; unclassified (11 sources) Poor short-term memory 01-05-2023 Episodic Residual codes; unclassified (9 sources) Edema, generalized 06-21-2023 Episodic Spondylosis; intervertebral disc disorders; other back problems (14 sources) Low back pain; Translations: [Lumbar radiculitis] 01-25-2024 Episodic Unclassified (6 sources) Patient encounter status; Translations: [Screening for endocrine, metabolic and immunity disorder] 06-10-2024 Unclassified (2 sources) History of bilateral total knee replacement; Translations: [History of total bilateral knee replacement] Onset: 03-18-2019 03-18-2019 Unclassified (1 source) Encounter for screening for COVID-19; Translations: [Encounter for screening for COVID-19] Onset: 09-30-2021 Unclassified (1 source) Cough, unspecified; Translations: [Cough, unspecified] Onset: 12-19-2023 Urinary tract infections (10 sources) Urinary tract infectious disease 05-18-2023 Episodic Viral infection (1 source) COVID-19; Translations: [COVID-19] Onset: 02-09-2021 Past or Other Problems Problem Classification Problem Date Documented Date Episodic/Chronic Allergic reactions (2 sources) Skin changes due to chronic exposure to non-ionizing radiation; Translations: [Other skin changes due to chronic exposure to nonionizing radiation] Onset: 08-17-2005 04-15-2021 Episodic Deficiency and other anemia (2 sources) [...] (2 sources) Patient encounter status; Translations: [Other watermaster (current) drug therapy] Onset: 02-28-2013 04-15-2021 Episodic Other and unspecified benign neoplasm (19 sources) History of polyp of colon; Translations: [Personal history of colonic polyps] Onset: 01-22-2019 01-22-2019 Episodic Other and unspecified benign neoplasm (2 sources) Hemangioma; Translations: [Hemangioma unspecified site] Onset: 09-24-2008 04-15-2021 Episodic Other nutritional; endocrine; and metabolic disorders (2 sources) Hyperuricemia without signs of inflammatory arthritis and tophaceous disease; Translations: [Hyperuricemia without signs of inflammatory arthritis and tophaceous disease] Onset: 02-28-2023 Episodic Other skin disorders (14 sources) Actinic [...] Translations: [Other amnesia] Onset: 03-05-2018 04-15-2021 Episodic Residual codes; unclassified (2 sources) Other amnesia; Translations: [Other amnesia] Onset: 02-28-2023 Episodic Results Test Name Value Interpretation Reference Range Facility Bilirubin directOrdered By: Jack Fuller on 09-22-2024 Bilirubin.direct [Mass/Vol] 0.27 mg/dL 0.00-0.30 [facility] Bilirubin, totalOrdered By: Jack Fuller on 09-22-2024 Bilirubin [Mass/Vol] 0.57 mg/dL 0.00-1.30 [facility] Calculated very low density lipoprotein (VLDL) cholesterol measurementOrdered By: Jack Fuller on 09-22-2024 Calculated very low density lipoprotein (VLDL) cholesterol measurement 20 mg/dL 5-40 [facility] LDL calc ser/plasOrdered By: Jack Fuller on 09-22-2024 Cholesterol in LDL [Mass/Vol] 62 mg/dL [facility] Comment on above: Bqceendljn=006-700 m g/dL & Higher Tsdm=026 mg/dL or greater Laboratory - Chemistry and C hemistry - challengeOrdered By: Jack Fuller on 09-22-2024 AST [Catalytic activity/Vol] 25 U/L <38 [facility] Lipid Profileon 09-22-2024 CHOL:HDL 2.66 Normal [facility] Comment on above: Performed By: #### L 500.3400, L500.4100 #### [facility] [address], [place], [id number] (385) Cholesterol [Mass/Vol] 132 mg/dL Normal <=200 [facility] Comment on above: Result Comment: Chol esterol level, Desirable <200 mg/dL Borderline high cholesterol 200-239 mg/dL High cholesterol >=240 mg/dL Recommendations of the NCEP Adult Treatment Panel for the following risk-cutoff thresholds for the [place] population. Performed By: #### L 500.3400, L500.4100 #### [facility] [address] [facility] [place], [place], [address] Cholesterol in HDL [Mass/Vol] 50 mg/dL Normal [facility] Comment on above: Result Comment: Allie onal Cholesterol Education Program (NCEP) guidelines: <40 mg/dL: Low HDL-cholesterol (major risk factor for CHD) >= 60 mg/dL: High HDL-cholesterol (negative risk factor for CHD) HDL-cholesterol is affected by a number of factors, e.g. smoking, exercise, hormones, sex and age. Performed By: #### L 500.3400, L500.4100 #### [facility] [address] [place], [address] Cholesterol in LDL [Mass/Vol] 62 mg/dL Normal [facility] Comment on above: Result Comment: Bord rnzelm=414-644 mg/dL Higher Qjbe=543 mg/dL or greater Performed By: #### L 500.3400, L500.4100 #### [facility] [address] [place], [address] Cholesterol in VLDL [Mass/Vol] 20 mg/dL Normal 5-40 [facility] Comment on above: Performed By: #### L 500.3400, L500.4100 #### [facility] [address] [place], [address] Triglyceride [Mass/Vol] 101 mg/dL Normal [facility] Comment on above: Result Comment: The drugs N-Acetylcysteine and Metamizole may falsely depress this assay. Normal range: <150 mg/dL Borderline High: 150-199 mg/dL High: 200-499 mg/dL Very High: >500 mg/dL Performed By: #### L 500.3400, L500.4100 #### [facility] [address] [place], [address] Liver Profileon 09-22-2024 Albumin [Mass/Vol] 3.8 g/dL Normal 3.4-4.8 [facility] Comment on above: Performed By: #### L 500.3400, L500.4100 #### [facility] [address] [place], [address] ALK PHOS 86 U/L Normal 40-129 [facility] Comment on above: Performed By: #### L 500.3400, L500.4100 #### [facility] [address] [place], [address] ALT [Catalytic activity/Vol] 19 U/L Normal <=46 [facility] Comment on above: Performed By: #### L 500.3400, L500.4100 #### [facility] [address] [place], [address] AST [Catalytic activity/Vol] 25 U/L Normal <=37 [facility] Comment on above: Performed By: #### L 500.3400, L500.4100 #### [facility] [address] [place], [address] Bilirubin [Mass/Vol] 0.57 mg/dL Normal 0.00-1.30 [facility] Comment on above: Performed By: #### L 500.3400, L500.4100 #### [facility] [address] [place], [address] Bilirubin.direct [Mass/Vol] 0.27 mg/dL Normal 0.00-0.30 [facility] Comment on above: Performed By: #### L 500.3400, L500.4100 #### [facility] [address] [place], [address] Globulin (S) [Mass/Vol] 3.0 g/dL Normal 2.2-4.2 [facility] Comment on above: Performed By: #### L 500.3400, L500.4100 #### [facility] [address] [place], [address] T PROT 6.8 g/dL Normal 5.9-8.4 [facility] Comment on above: Performed By: #### L 500.3400, L500.4100 #### [facility] [address] [place], [address] Screening total cholesterol/ high density lipoprotein (HDL) cholesterol ratioOrdered By: Jack Fuller on 09-22-2024 Cholesterol.total/Choles terol in HDL [Mass ratio] 2.66 {ratio} [facility] Serum globulin measurementOr dered By: Jack Fuller on 09-22-2024 Globulin (S) [Mass/Vol] 3.0 g/dL 2.2-4.2 [facility] Serum or plasma alanine au otransferase (ALT) measurementOrdered By: Jack Fuller on 09-22-2024 ALT [Catalytic activity/Vol] 19 U/L <47 [facility] Serum or plasma albumin ender urement (mass/volume)Ordered By: Jack Fuller on 09-22-2024 Albumin [Mass/Vol] 3.8 g/dL 3.4-4.8 [facility] Serum or plasma alkaline ana sphatase measurementOrdered By: Jack Fuller on 09-22-2024 ALP [Catalytic activity/Vol] 86 U/L 40-129 [facility] Serum or plasma cholesterol in HDL measurement (mass/volume)Ordered By: Jakc Fuller on 09-22-2024 Cholesterol in HDL [Mass/Vol] 50 mg/dL >40 [facility] Comment on above: National Cholesterol Education Program (NCEP) guidelines:<40 mg/dL: Low HDL-cholesterol (major risk factor for CHD)>= 60 mg/dL: High HDL-cholesterol (negative risk factor for CHD)HDL-cholesterol is affected by a number of factors, e.g. smoking, exercise, hormones, sex and age. Serum or plasma cholesterol measurement (mass/volume)Ordered By: Jack Fuller on 09-22-2024 Cholesterol [Mass/Vol] 132 mg/dL <[address] [facility] Comment on above: Cholesterol level, D esirable <200 mg/dLBorderline high cholesterol 200-239 mg/dLHigh cholesterol >=240 mg/dLRecommendations of the NCEP Adult Treatment Panel for the following risk-cutoff thresholds for the [place] population. Total proteinOrdered By: Azael Fuller on 09-22-2024 Protein [Mass/Vol] 6.8 g/dL 5.9-8.4 [facility] Triglycerides measurementOrd ered By: Jack Fuller on 09-22-2024 Triglyceride [Mass/Vol] 101 mg/dL <199 [facility] Comment on above: The drugs N-Acetylcy steine and Metamizole may falsely depress this assay. Normal range: <150 mg/dLBorderline High: 150-199 mg/dLHigh: 200-499 mg/dLVery High: >500 mg/dL Cardiology Visit Reporton Cardiology Visit Report [facility] [address] [place] [address] OFFICE VISIT Date of Service: 09/18/24 MR#: [id number] Acct: [id number] Name: FREDY BOX Rep #: [id number] : 1945 Provider: Dr. Jack ayala MD Age/Sex: 79/M Location: [facility] [place] Status: Signed HPI HPI History of Present Illness Details: Patient is a pleasant 79-year-old white male that comes in for monitoring of his cardiovascular status. The patient carries a history of coronary disease status post stenting the last of which was in 2010 in [facility]. His symptoms prior to the stenting was severe dyspnea on exertion. He denies any recurrence of the symptoms. He has recently had pneumonia and is still getting over the cough. The patient also carries a history of heart failure with preserved ejection fraction he has been treated with Jardiance and he has not been rehospitalized since March 2023. His EF was known to be 65% with stage I diastolic dysfunction and no significant valvular heart disease on his echo August 2023. The patient carries a history of hypertension is well-controlled on aggressive medical therapy. He also has a history of hyperlipidemia which is well-controlled on atorvastatin. The patient utilizes CPAP for his sleep apnea. And he does self report significant memory issues to the point he takes notes on his phone both prior to coming to the office for questions to ask as well as all the answers to the questions. The patient denies any PND orthopnea denies any lower extremity edema denies any recurrence of his dyspnea on exertion which was his anginal equivalent. Intake Vital Signs 12/12/23 13:32 09/18/24 13:41 Height 5 ft 8 in 5 ft 8 in Weight: 203 lb 194 lb BMI 30.9 29.5 BP 120/78 105/66 Blood Pressure Location Lt brachial Position Sitting Respiration 18 Pulse 56 L 61 Pulse Source Monitor Pulse Oximetry (%) 94 Oxygen Delivery Method room air Intake Visit Reasons: 9 M FU Cake Wrapper Required: No Accompanied by: Self Is patient in pain?: No Allergies No Known Allergies Allergy (Verified 09/18/24 13:43) Medications ???Medication ???Instructions ???Recorded ???Confirmed ???Type allopurinol 300 mg tablet 300 mg PO DAILY gout 04/12/2306/10 History aspirin 81 mg capsule 81 mg PO DAILY heart health 09/18/24 History atorvastatin 20 mg tablet 20 mg PO DAILY cholesterol 4 09/18/24 History donepezil 10 mg tablet 10 mg PO QHS dementia 04/12/2306/10 History memantine 5 mg tablet 5 mg PO BID dementia 04/12/2306/10 History tamsulosin 0.4 mg capsule 0.4 mg PO DAILY urination 04/12/23 09/18/24 History timolol maleate 0.5 % eye drops 1 drp ophthalmic (eye) BID eye 09/18/24 History health losartan 25 mg tablet 25 mg PO DAILY #90 tabs 05/22/23 0 09/18/24 Rx vitamin B complex 1 tab PO DAILY 07/23/23 09/18/24 H istory buspirone 7.5 mg tablet 7.5 mg PO BID 09/11/23 09/18/24 Hi story empagliflozin 10 mg tablet 10 mg PO QAM #90 tabs 09/12/2306/10 Rx (Jardiance) fluticasone furoate 200 1 ea inhalation QDAY 12/12/2306/10 History mcg-vilanterol 25 mcg/dose inhalation powder (Breo Ellipta) metoprolol succinate 25 mg 25 mg PO BID 12/12/23 09/18/24 His tory tablet,extended release 24 hr latanoprost 0.005 % eye drops 1 drp ophthalmic (eye) QHS 5 09/18/24 History Ejection fraction %: 65 Have you fallen in the past year?: No PFSH Medical History Gout Essential hypertension Hyperlipidemia PSVT (paroxysmal supraventricular tachycardia) DIAN (acute kidney injury) Coronary arteriosclerosis after percutaneous transluminal coronary angioplasty (PTCA) Rhabdomyolysis Dementia CVA (cerebral vascular accident) Kidney calculi Surgical History History of heart artery stent ( 2010) Family History Father , Age 68 Myocardial infarction Brother Cancer Sister Cancer Mother Lung disease Social History Smoking Status: Never smoker second hand exposure: Yes alcohol intake: never substance use type: does not use caffeine: Yes Type: carbonated beverages and coffee ROS Const Const: Negative for fatigue, weakness, fever(s) or headache(s) Eyes Eyes: Negative for blind spots, loss of peripheral vision, transient loss of vision, blurry vision or change in vision ENT ENT: Positive for balance problems; Negative for headache(s), dizziness, tinnitus or Nosebleed/epistaxis Cardio Chest Pain: No Palpitations: No Edema: None Muscle aches with wal (more content not included)... Normal [facility] .GFRon 08-26-2024 Estimated Glomerular Filtration Rate 51 ml/min/1.73sqm Normal [facility] Comment on above: Result Comment: Stages of Chronic Kidney Disease (CKD) Stage Description eGFR(ml/min/1.73 sq.m.) CKD 1 Normal kidney function or >=90 normal kindney function with possible kidney damage (ex. Proteinuria) CKD 2 Kidney damage with mild loss 60-89 of kidney function CKD 3a Mild to moderate loss of kidney 45-59 function CKD 3b Moderate to severe loss of 30-44 of kindey function CKD 4 Severe loss of kidney function 15-29 CKD 5 Kidney failure <15 Note: (go live 2024) the eGFR calculation was updated to the 2020 CKD-EPI creatinine equation without a race factor to calculate the eGFR results. Performed By: #### C MP, CBC, ADIFF, ANEU, URIC, GFR, LIPID #### [facility] [address] [place], [place] [address] CMPon 08-26-2024 Albumin Level 2.9 G/dL Low 3.4-4.8 [facility] Comment on above: Performed By: #### L IPID, GFR, CMP #### [facility] [address] [place], [place] [address] Albumin/Globulin [Mass ratio] 0.7 {ratio} Low 1.1-2.5 [facility] Comment on above: Performed By: #### L IPID, GFR, CMP #### [address] [address] ALP [Catalytic activity/Vol] 84 U/L Normal 40-135 [facility] Comment on above: Performed By: #### L IPID, GFR, CMP #### [address] [address] ALT [Catalytic activity/Vol] 24 U/L Normal 16-63 [facility] Comment on above: Performed By: #### L IPID, GFR, CMP #### [address] [address] AST [Catalytic activity/Vol] 22 U/L Normal 10-40 [facility] Comment on above: Performed By: #### L IPID, GFR, CMP #### [address] [address] Bili Total 0.5 mg/dL Normal 0.2-1.0 [facility] Comment on above: Result Comment: Use of this assay is not recommended for patients undergoing treatment with eltrombopag due to the potential for falsely elevated results. Performed By: #### L IPID, GFR, CMP #### [address] [address] BUN/Creatinine Ratio 24 ratio Normal 7-27 [facility] Comment on above: Performed By: #### L IPID, GFR, CMP #### [address] [address] Calcium [Mass/Vol] 8.8 mg/dL Normal 8.4-10.2 [facility] Comment on above: Performed By: #### L IPID, GFR, CMP #### [address] [address] Chloride [Moles/Vol] 109 mmol/L High 98-107 [facility] Comment on above: Performed By: #### L IPID, GFR, CMP #### [address] [address] CO2 [Moles/Vol] 27 mmol/L Normal 23-31 [facility] Comment on above: Performed By: #### L IPID, GFR, CMP #### [address] [address] Creatinine [Mass/Vol] 1.40 mg/dL High 0.67-1.17 [facility] Comment on above: Performed By: #### L IPID, GFR, CMP #### [address] [address] Electrolyte Balance 8.0 mEq/L Normal 4.0-15.0 [facility] Comment on above: Performed By: #### L IPID, GFR, CMP #### [address] [address] Globulin 3.9 G/dL Normal 2.7-4.4 [facility] Comment on above: Performed By: #### L IPID, GFR, CMP #### [address] [address] Glucose [Mass/Vol] 88 mg/dL Normal 83-110 [facility] Comment on above: Performed By: #### L IPID, GFR, CMP #### [address] [address] Potassium [Moles/Vol] 4.2 mmol/L Normal 3.5-5.1 [facility] Comment on above: Performed By: #### L IPID, GFR, CMP #### [address] [address] Sodium [Moles/Vol] 144 mmol/L Normal 136-145 [facility] Comment on above: Performed By: #### L IPID, GFR, CMP #### [address] [address] Total Protein 6.8 G/dL Normal 6.4-8.2 [facility] Comment on above: Performed By: #### L IPID, GFR, CMP #### [address] [address] Urea nitrogen [Mass/Vol] 34 mg/dL High 7-18 [facility] Comment on above: Performed By: #### L IPID, GFR, CMP #### [facility] [address] [place], [place] [address] LABORATORYOrdered By: SYSTEM SYSTEM on 08-26-2024 Albumin BCP dye [Mass/Vol] 2.9 G/dL Low 3.4 - 4.8 G/dL AO ADM SS Albumin/Globulin [Mass ratio] 0.7 {ratio} Low 1.1 - 2.5 ratio AO ADM SS ALP [Catalytic activity/Vol] 84 U/L Normal 40 - 135 U/L AO ADM SS ALT With P-5'-P [Catalytic activity/Vol] 24 U/L Normal 16 - 63 U/L AO ADM SS AST With P-5'-P [Catalytic activity/Vol] 22 U/L Normal 10 - 40 U/L AO ADM SS Bilirubin [Mass/Vol] 0.5 mg/dL Normal 0.2 - 1 .0 mg/dL AO ADM SS Comment on above: Interpretive Data: U se of this assay is not recommended for patients undergoing treatment with eltrombopag due to the potential for falsely elevated results. Calcium [Mass/Vol] 8.8 mg/dL Normal 8.4 - 10. 2 mg/dL AO ADM SS Chloride [Moles/Vol] 109 mmol/L High 98 - 10 7 mmol/L AO ADM SS CO2 [Moles/Vol] 27 mmol/L Normal 23 - 31 mmol/L AO ADM SS Creatinine [Mass/Vol] 1.40 mg/dL High 0.67 - 1.17 mg/dL AO ADM SS Electrolyte Balance 8.0 mEq/L Normal 4.0 - 15 .0 mEq/L AO ADM SS Estimated Glomerular Filtration Rate 51 ml/min/1.73sqm Invalid Interpretation Code AO Chemistry S Comment on above: Interpretive Data: Stages of Chronic Kidney Disease (CKD) Stage Description eGFR(ml/min/1.73 sq.m.) CKD 1 Normal kidney function or >=90 normal kindney function with possible kidney damage (ex. Proteinuria) CKD 2 Kidney damage with mild loss 60-89 of kidney function CKD 3a Mild to moderate loss of kidney 45-59 function CKD 3b Moderate to severe loss of 30-44 of kindey function CKD 4 Severe loss of kidney function 15-29 CKD 5 Kidney failure <15 Note: (go live 2024) the eGFR calculation was updated to the 2020 CKD-EPI creatinine equation without a race factor to calculate the eGFR results. Globulin 3.9 G/dL Normal 2.7 - 4.4 G/dL AO ADM SS Glucose [Mass/Vol] 88 mg/dL Normal 83 - 110 mg/dL AO ADM SS Potassium [Moles/Vol] 4.2 mmol/L Normal 3.5 - 5.1 mmol/L AO ADM SS Protein [Mass/Vol] 6.8 G/dL Normal 6.4 - 8.2 G/dL AO ADM SS Sodium [Moles/Vol] 144 mmol/L Normal 136 - 145 mmol/L AO ADM SS Urea nitrogen [Mass/Vol] 34 mg/dL High 7 - 18 mg/d L AO ADM SS Urea nitrogen/Creatinine [Mass ratio] 24 ratio Normal 7 - 27 ratio AO ADM SS LABORATORYOrdered By: Michael Bates on 08-26-2024 Cholesterol [Mass/Vol] 133 mg/dL Normal 0 - 2 00 mg/dL AO ADM SS Comment on above: Interpretive Data: C holesterol Reference Interval: Less than 200 Desirable 200-239 Borderline high risk 240 and above High risk Cholesterol in HDL [Mass/Vol] 55 mg/dL Normal 40 - 60 mg/dL AO ADM SS Cholesterol in LDL [Mass/Vol] 63 mg/dL Normal 0 - 130 mg/dL AO ADM SS Triglyceride [Mass/Vol] 74 mg/dL Normal 0 - 150 mg/dL AO ADM SS Comment on above: Interpretive Data: T riglyceride Reference Interval: Less than 150 Normal 150-199 Borderline high risk 200-499 High risk 500 or higher Very high risk LIPIDon 08-26-2024 Cholesterol [Mass/Vol] 133 mg/dL Normal 0-200 [facility] Comment on above: Result Comment: Chol esterol Reference Interval: Less than 200 Desirable 200-239 Borderline high risk 240 and above High risk Performed By: #### C MP, CBC, ADIFF, ANEU, URIC, GFR, LIPID #### [facility] [address] [place], [place] [address] Cholesterol in HDL [Mass/Vol] 55 mg/dL Normal 40-60 [facility] Comment on above: Performed By: #### C MP, CBC, ADIFF, ANEU, URIC, GFR, LIPID #### [address] [address] Cholesterol in LDL [Mass/Vol] 63 mg/dL Normal 0-130 [facility] Comment on above: Performed By: #### C MP, CBC, ADIFF, ANEU, URIC, GFR, LIPID #### [address] [address] Triglyceride [Mass/Vol] 74 mg/dL Normal 0-150 [facility] Comment on above: Result Comment: Trig lyceride Reference Interval: Less than 150 Normal 150-199 Borderline high risk 200-499 High risk 500 or higher Very high risk Performed By: #### C MP, CBC, ADIFF, ANEU, URIC, GFR, LIPID #### [address] [address] .Auto Diffon 08-18-2024 Basophil, Absolute 0.0 10 3/mcL Normal 0.0-0.3 [facility] Comment on above: Performed By: #### C MP, CBC, ADIFF, ANEU, URIC, GFR, LIPID #### [address] [address] Basophils/100 WBC (Bld) 0.2 % Normal 0.0-2.5 [facility] Comment on above: Performed By: #### C MP, CBC, ADIFF, ANEU, URIC, GFR, LIPID #### [address] [address] Eosinophil, Absolute 0.1 10 3/mcL Normal 0.0-0.7 [facility] Comment on above: Performed By: #### C MP, CBC, ADIFF, ANEU, URIC, GFR, LIPID #### [address] [address] Eosinophils/100 WBC (Bld) 0.9 % Normal 0.0-6.0 [facility] Comment on above: Performed By: #### C MP, CBC, ADIFF, ANEU, URIC, GFR, LIPID #### [address] [address] Lymphocyte, Absolute 0.9 10 3/mcL Normal 0.9-4.3 [facility] Comment on above: Performed By: #### C MP, CBC, ADIFF, ANEU, URIC, GFR, LIPID #### [address] [address] Lymphocytes/100 WBC (Bld) 8.1 % Low 20.0-40.0 [facility] Comment on above: Performed By: #### C MP, CBC, ADIFF, ANEU, URIC, GFR, LIPID #### [address] [address] Monocyte, Absolute 1.0 10 3/mcL Normal 0.1-1.4 [facility] Comment on above: Performed By: #### C MP, CBC, ADIFF, ANEU, URIC, GFR, LIPID #### [address] [address] Monocytes/100 WBC (Bld) 8.9 % Normal 2.0-13.0 [facility] Comment on above: Performed By: #### C MP, CBC, ADIFF, ANEU, URIC, GFR, LIPID #### [address] [address] Neutrophils/100 WBC (Bld) 81.9 % High 50.0-75.0 [facility] Comment on above: Performed By: #### C MP, CBC, ADIFF, ANEU, URIC, GFR, LIPID #### [address] [address] .GFRon 08-18-2024 Estimated Glomerular Filtration Rate 54 ml/min/1.73sqm Normal [facility] Comment on above: Result Comment: Stages of Chronic Kidney Disease (CKD) Stage Description eGFR(ml/min/1.73 sq.m.) CKD 1 Normal kidney function or >=90 normal kindney function with possible kidney damage (ex. Proteinuria) CKD 2 Kidney damage with mild loss 60-89 of kidney function CKD 3a Mild to moderate loss of kidney 45-59 function CKD 3b Moderate to severe loss of 30-44 of kindey function CKD 4 Severe loss of kidney function 15-29 CKD 5 Kidney failure <15 Note: (go live 2024) the eGFR calculation was updated to the 2020 CKD-EPI creatinine equation without a race factor to calculate the eGFR results. Performed By: #### C MP, CBC, ADIFF, ANEU, URIC, GFR, LIPID #### [address] [address] .NEUABSon 08-18-2024 Neutrophil, Absolute 9.6 10 3/mcL High 2.3-8.1 [facility] Comment on above: Performed By: #### C MP, CBC, ADIFF, ANEU, URIC, GFR, LIPID #### [place] [address] CBCon 08-18-2024 Erythrocyte distribution width (RBC) [Ratio] 17.4 % High 11.5-15.5 [facility] Comment on above: Performed By: #### C MP, CBC, ADIFF, ANEU, URIC, GFR, LIPID #### [place] [address] Hematocrit (Bld) [Volume fraction] 43.6 % Normal 40.0-52.0 [facility] Comment on above: Performed By: #### C MP, CBC, ADIFF, ANEU, URIC, GFR, LIPID #### [place] [address] Hgb 14.6 G/dL Normal 13.0-17.5 [facility] Comment on above: Performed By: #### C MP, CBC, ADIFF, ANEU, URIC, GFR, LIPID #### [place] [address] MCH (RBC) [Entitic mass] 34.3 pg High 27.0-33.0 [facility] Comment on above: Performed By: #### C MP, CBC, ADIFF, ANEU, URIC, GFR, LIPID #### [place] [address] MCHC 33.4 G/dL Normal 32.0-36.0 [facility] Comment on above: Performed By: #### C MP, CBC, ADIFF, ANEU, URIC, GFR, LIPID #### [address] [address] MCV (RBC) [Entitic vol] 102.8 fL High 81.0-100.0 [facility] Comment on above: Performed By: #### C MP, CBC, ADIFF, ANEU, URIC, GFR, LIPID #### [address] [address] Platelet 132 10 3/mcL Low 150-450 [facility] Comment on above: Performed By: #### C MP, CBC, ADIFF, ANEU, URIC, GFR, LIPID #### [address] [address] Platelet mean volume (Bld) [Entitic vol] 7.6 fL Normal 6.4-10.5 [facility] Comment on above: Performed By: #### C MP, CBC, ADIFF, ANEU, URIC, GFR, LIPID #### [address] [address] RBC 4.24 10 6/mcL Low 4.50-6.00 [facility] Comment on above: Performed By: #### C MP, CBC, ADIFF, ANEU, URIC, GFR, LIPID #### [address] [address] WBC 11.7 10 3/mcL High 4.5-10.8 [facility] Comment on above: Performed By: #### C MP, CBC, ADIFF, ANEU, URIC, GFR, LIPID #### [address] [address] CMPon 08-18-2024 Albumin Level 2.9 G/dL Low 3.4-4.8 [facility] Comment on above: Performed By: #### C MP, CBC, ADIFF, ANEU, URIC, GFR, LIPID #### [address] [address] Albumin/Globulin [Mass ratio] 0.8 {ratio} Low 1.1-2.5 [facility] Comment on above: Performed By: #### C MP, CBC, ADIFF, ANEU, URIC, GFR, LIPID #### [address] [address] ALP [Catalytic activity/Vol] 81 U/L Normal 40-135 [facility] Comment on above: Performed By: #### C MP, CBC, ADIFF, ANEU, URIC, GFR, LIPID #### [address] [address] ALT [Catalytic activity/Vol] 33 U/L Normal 16-63 [facility] Comment on above: Performed By: #### C MP, CBC, ADIFF, ANEU, URIC, GFR, LIPID #### [address] [address] AST [Catalytic activity/Vol] 33 U/L Normal 10-40 [facility] Comment on above: Performed By: #### C MP, CBC, ADIFF, ANEU, URIC, GFR, LIPID #### [address] [address] Bili Total 0.7 mg/dL Normal 0.2-1.0 [facility] Comment on above: Result Comment: Use of this assay is not recommended for patients undergoing treatment with eltrombopag due to the potential for falsely elevated results. Performed By: #### C MP, CBC, ADIFF, ANEU, URIC, GFR, LIPID #### [address] [address] BUN/Creatinine Ratio 23 ratio Normal 7-27 [facility] Comment on above: Performed By: #### C MP, CBC, ADIFF, ANEU, URIC, GFR, LIPID #### [address] [address] Calcium [Mass/Vol] 8.7 mg/dL Normal 8.4-10.2 [facility] Comment on above: Performed By: #### C MP, CBC, ADIFF, ANEU, URIC, GFR, LIPID #### [address] [address] Chloride [Moles/Vol] 108 mmol/L High 98-107 [facility] Comment on above: Performed By: #### C MP, CBC, ADIFF, ANEU, URIC, GFR, LIPID #### [address] [address] CO2 [Moles/Vol] 25 mmol/L Normal 23-31 [facility] Comment on above: Performed By: #### C MP, CBC, ADIFF, ANEU, URIC, GFR, LIPID #### [address] [address] Creatinine [Mass/Vol] 1.33 mg/dL High 0.67-1.17 [facility] Comment on above: Performed By: #### C MP, CBC, ADIFF, ANEU, URIC, GFR, LIPID #### [place] [address] Electrolyte Balance 8.0 mEq/L Normal 4.0-15.0 [facility] Comment on above: Performed By: #### C MP, CBC, ADIFF, ANEU, URIC, GFR, LIPID #### [place] [address] Globulin 3.8 G/dL Normal 2.7-4.4 [facility] Comment on above: Performed By: #### C MP, CBC, ADIFF, ANEU, URIC, GFR, LIPID #### [place] [address] Glucose [Mass/Vol] 80 mg/dL Low 83-110 [facility] Comment on above: Performed By: #### C MP, CBC, ADIFF, ANEU, URIC, GFR, LIPID #### [address] [address] Potassium [Moles/Vol] 4.0 mmol/L Normal 3.5-5.1 [facility] Comment on above: Performed By: #### C MP, CBC, ADIFF, ANEU, URIC, GFR, LIPID #### [place] [address] Sodium [Moles/Vol] 141 mmol/L Normal 136-145 [facility] Comment on above: Performed By: #### C MP, CBC, ADIFF, ANEU, URIC, GFR, LIPID #### [facility] [address] [place], [place] [address] Total Protein 6.7 G/dL Normal 6.4-8.2 [facility] Comment on above: Performed By: #### C MP, CBC, ADIFF, ANEU, URIC, GFR, LIPID #### [place] [address] [place], [place] [address] Urea nitrogen [Mass/Vol] 31 mg/dL High 7-18 [facility] Comment on above: Performed By: #### C MP, CBC, ADIFF, ANEU, URIC, GFR, LIPID #### [place] [address] [place], [place] [address] LABORATORYOrdered By: SYSTEM SYSTEM on 08-18-2024 Albumin BCP dye [Mass/Vol] 2.9 G/dL Low 3.4 - 4.8 G/dL AO ADM SS Albumin/Globulin [Mass ratio] 0.8 {ratio} Low 1.1 - 2.5 ratio AO ADM SS ALP [Catalytic activity/Vol] 81 U/L Normal 40 - 135 U/L AO ADM SS ALT With P-5'-P [Catalytic activity/Vol] 33 U/L Normal 16 - 63 U/L AO ADM SS AST With P-5'-P [Catalytic activity/Vol] 33 U/L Normal 10 - 40 U/L AO ADM SS Basophils (Bld) [#/Vol] 0.0 103/mcL Normal 0.0 - 0.3 10^3/mcL AO Workflow SS Basophils/100 WBC (Bld) 0.2 % Normal 0.0 - 2.5 % AO Workflow SS Bilirubin [Mass/Vol] 0.7 mg/dL Normal 0.2 - 1 .0 mg/dL AO ADM SS Comment on above: Interpretive Data: U se of this assay is not recommended for patients undergoing treatment with eltrombopag due to the potential for falsely elevated results. Calcium [Mass/Vol] 8.7 mg/dL Normal 8.4 - 10. 2 mg/dL AO ADM SS Chloride [Moles/Vol] 108 mmol/L High 98 - 10 7 mmol/L AO ADM SS CO2 [Moles/Vol] 25 mmol/L Normal 23 - 31 mmol/L AO ADM SS Creatinine [Mass/Vol] 1.33 mg/dL High 0.67 - 1.17 mg/dL AO ADM SS Electrolyte Balance 8.0 mEq/L Normal 4.0 - 15 .0 mEq/L AO ADM SS Eosinophil, Absolute 0.1 103/mcL Normal 0.0 - 0 .7 10^3/mcL AO Workflow SS Eosinophils/100 WBC (Bld) 0.9 % Normal 0.0 - 6.0 % AO Workflow SS Erythrocyte distribution width (RBC) [Ratio] 17.4 % High 11.5 - 15.5 % AO Workflow SS Estimated Glomerular Filtration Rate 54 ml/min/1.73sqm Invalid Interpretation Code AO Chemistry S Comment on above: Interpretive Data: Stages of Chronic Kidney Disease (CKD) Stage Description eGFR(ml/min/1.73 sq.m.) CKD 1 Normal kidney function or >=90 normal kindney function with possible kidney damage (ex. Proteinuria) CKD 2 Kidney damage with mild loss 60-89 of kidney function CKD 3a Mild to moderate loss of kidney 45-59 function CKD 3b Moderate to severe loss of 30-44 of kindey function CKD 4 Severe loss of kidney function 15-29 CKD 5 Kidney failure <15 Note: (go live 2024) the eGFR calculation was updated to the 2020 CKD-EPI creatinine equation without a race factor to calculate the eGFR results. Globulin 3.8 G/dL Normal 2.7 - 4.4 G/dL AO ADM SS Glucose [Mass/Vol] 80 mg/dL Low 83 - 110 mg/dL AO ADM SS Hematocrit (Bld) [Volume fraction] 43.6 % Normal 40.0 - 52.0 % AO Workflow SS Hemoglobin (Bld) [Mass/Vol] 14.6 G/dL Normal 13.0 - 17.5 G/dL AO Workflow SS Lymphocytes (Bld) [#/Vol] 0.9 103/mcL Normal 0.9 - 4.3 10^3/mcL AO Workflow SS Lymphocytes/100 WBC (Bld) 8.1 % Low 20.0 - 40.0 % AO Workflow SS MCH (RBC) [Entitic mass] 34.3 pg High 27. 0 - 33.0 pg AO Workflow SS MCHC 33.4 G/dL Normal 32.0 - 36.0 G/dL AO Workflow SS MCV (RBC) [Entitic vol] 102.8 fL High 81.0 - 100.0 fL AO Workflow SS Monocytes (Bld) [#/Vol] 1.0 103/mcL Normal 0.1 - 1.4 10^3/mcL AO Workflow SS Monocytes/100 WBC (Bld) 8.9 % Normal 2.0 - 13.0 % AO Workflow SS Natriuretic peptide.B prohormone N-Terminal [Mass/Vol] 605 pg/mL High 0 - 450 pg/mL AO ADM SS Comment on above: Interpretive Data: N T-proBNP results of less than 300 pg/mL effectively rules out acute congestive heart failure with 99% negative predictive value. Neutrophils (Bld) [#/Vol] 9.6 103/mcL High 2.3 - 8.1 10^3/mcL AO Workflow SS Neutrophils/100 WBC (Bld) 81.9 % High 50.0 - 75.0 % AO Workflow SS Platelet mean volume (Bld) [Entitic vol] 7.6 fL Normal 6.4 - 10.5 fL AO Workflow SS Platelets (Bld) [#/Vol] 132 103/mcL Low 150 - 450 10^3/mcL AO Workflow SS Potassium [Moles/Vol] 4.0 mmol/L Normal 3.5 - 5.1 mmol/L AO ADM SS Protein [Mass/Vol] 6.7 G/dL Normal 6.4 - 8.2 G/dL AO ADM SS RBC (Bld) [#/Vol] 4.24 106/mcL Low 4.50 - 6.0 0 10^6/mcL AO Workflow SS Sodium [Moles/Vol] 141 mmol/L Normal 136 - 145 mmol/L AO ADM SS Urea nitrogen [Mass/Vol] 31 mg/dL High 7 - 18 mg/d L AO ADM SS Urea nitrogen/Creatinine [Mass ratio] 23 ratio Normal 7 - 27 ratio AO ADM SS WBC (Bld) [#/Vol] 11.7 103/mcL High 4.5 - 10.8 10^3/mcL AO Workflow SS No Panel Informationon 08-18 Culture Urine No growth at 48 hours. [facility] PBNPon 08-18-2024 Natriuretic peptide B (Bld) [Mass/Vol] 605 pg/mL High 0-450 [facility] Comment on above: Result Comment: NT-p roBNP results of less than 300 pg/mL effectively rules out acute congestive heart failure with 99% negative predictive value. Performed By: #### C MP, CBC, ADIFF, ANEU, URIC, GFR, LIPID #### [place] [id number] [place], [place] [address] XR CHEST 2 VIEWSon XR CHEST 2 VIEWS ORIGINAL HISTORY: Pneumonia COMPARISON: 21 June 2023 FINDINGS: There are scattered calcified nodules, most prominently in the right base. There are mild streaky airspace opacities in the left base. Pulmonary vasculature is unremarkable in appearance. The cardiac silhouette is within normal size limits. There is mild scoliosis. IMPRESSION: Mild left atelectasis. Interpreted by: Nakul Duran MD Preliminary Report By: Nakul Duran MD Electronically signed By Nakul Duran MD Dictated Date: 08/08/2024 8:17:27 AM Prelim Date: 08/08/2024 8:18:18 AM Sign Date: 08/08/2024 8:18:18 AM Ordering Provider: ANGELA Rodrigez [facility] .Auto Diffon 04-14-2024 Basophil, Absolute 0.0 10 3/mcL Normal 0.0-0.2 [facility] Comment on above: Performed By: #### C MP, CBC, ADIFF, ANEU, URIC, GFR, LIPID #### [address] [address] Basophils/100 WBC (Bld) 0.4 % Normal 0.0-2.5 [facility] Comment on above: Performed By: #### C MP, CBC, ADIFF, ANEU, URIC, GFR, LIPID #### [address] [address] Eosinophil, Absolute 0.2 10 3/mcL Normal 0.0-0.7 [facility] Comment on above: Performed By: #### C MP, CBC, ADIFF, ANEU, URIC, GFR, LIPID #### [address] [address] Eosinophils/100 WBC (Bld) 2.1 % Normal 0.0-7.0 [facility] Comment on above: Performed By: #### C MP, CBC, ADIFF, ANEU, URIC, GFR, LIPID #### [address] [address] Lymphocyte, Absolute 0.9 10 3/mcL Normal 0.9-4.3 [facility] Comment on above: Performed By: #### C MP, CBC, ADIFF, ANEU, URIC, GFR, LIPID #### [address] [address] Lymphocytes/100 WBC (Bld) 12.2 % Low 20.0-40.0 [facility] Comment on above: Performed By: #### C MP, CBC, ADIFF, ANEU, URIC, GFR, LIPID #### [address] [address] Monocyte, Absolute 0.6 10 3/mcL Normal 0.1-1.4 [facility] Comment on above: Performed By: #### C MP, CBC, ADIFF, ANEU, URIC, GFR, LIPID #### [address] [address] Monocytes/100 WBC (Bld) 8.4 % Normal 2.0-13.0 [facility] Comment on above: Performed By: #### C MP, CBC, ADIFF, ANEU, URIC, GFR, LIPID #### [address] [address] Neutrophils/100 WBC (Bld) 76.9 % High 50.0-75.0 [facility] Comment on above: Performed By: #### C MP, CBC, ADIFF, ANEU, URIC, GFR, LIPID #### [address] [address] .GFRon 04-14-2024 GFR 63 ml/min/1.73sqm Normal [facility] Comment on above: Result Comment: GFR Population mean for , Non- Americans Ages 20-29 = 116 mL/min/1.73 sq.m. Ages 30-39 = 107 mL/min/1.73 sq.m. Ages 40-49 = 99 mL/min/1.73 sq.m. Ages 50-59 = 93 mL/min/1.73 sq.m. Ages 60-69 = 85 mL/min/1.73 sq.m. Ages 70+ = 75 mL/min/1.73 sq.m. Chronic Kidney Disease: Less than 60 mL/min/1.73 square meters End Stage Renal Disease: Less than 15 mL/min/1.73 square meters Performed By: #### C MP, CBC, ADIFF, ANEU, URIC, GFR, LIPID #### [address] [address] GFR Non- 52 ml/min/1.73sqm Normal [facility] Comment on above: Result Comment: GFR Population mean for , Non- Americans Ages 20-29 = 116 mL/min/1.73 sq.m. Ages 30-39 = 107 mL/min/1.73 sq.m. Ages 40-49 = 99 mL/min/1.73 sq.m. Ages 50-59 = 93 mL/min/1.73 sq.m. Ages 60-69 = 85 mL/min/1.73 sq.m. Ages 70+ = 75 mL/min/1.73 sq.m. Chronic Kidney Disease: Less than 60 mL/min/1.73 square meters End Stage Renal Disease: Less than 15 mL/min/1.73 square meters Performed By: #### C MP, CBC, ADIFF, ANEU, URIC, GFR, LIPID #### [address] [address] .NEUABSon 04-14-2024 Neutrophil, Absolute 5.5 10 3/mcL Normal 2.3-8.1 [facility] Comment on above: Performed By: #### C MP, CBC, ADIFF, ANEU, URIC, GFR, LIPID #### [address] [address] CBCon 04-14-2024 Erythrocyte distribution width (RBC) [Ratio] 15.8 % High 11.5-15.5 [facility] Comment on above: Performed By: #### C MP, CBC, ADIFF, ANEU, URIC, GFR, LIPID #### [address] [address] Hematocrit (Bld) [Volume fraction] 42.9 % Normal 40.0-52.0 [facility] Comment on above: Performed By: #### C MP, CBC, ADIFF, ANEU, URIC, GFR, LIPID #### [address] [address] Hgb 14.5 G/dL Normal 13.0-17.5 [facility] Comment on above: Performed By: #### C MP, CBC, ADIFF, ANEU, URIC, GFR, LIPID #### [place] [address] MCH (RBC) [Entitic mass] 34.2 pg High 27.0-33.0 [facility] Comment on above: Performed By: #### C MP, CBC, ADIFF, ANEU, URIC, GFR, LIPID #### [place] [address] MCHC 33.8 G/dL Normal 32.0-36.0 [facility] Comment on above: Performed By: #### C MP, CBC, ADIFF, ANEU, URIC, GFR, LIPID #### [place] [address] MCV (RBC) [Entitic vol] 100.9 fL High 81.0-100.0 [facility] Comment on above: Performed By: #### C MP, CBC, ADIFF, ANEU, URIC, GFR, LIPID #### [place] [address] Platelet 205 10 3/mcL Normal 150-450 [facility] Comment on above: Performed By: #### C MP, CBC, ADIFF, ANEU, URIC, GFR, LIPID #### [place] [address] Platelet mean volume (Bld) [Entitic vol] 6.8 fL Normal 6.4-10.5 [facility] Comment on above: Performed By: #### C MP, CBC, ADIFF, ANEU, URIC, GFR, LIPID #### [place] [id number] RBC 4.25 10 6/mcL Low 4.50-6.00 [facility] Comment on above: Performed By: #### C MP, CBC, ADIFF, ANEU, URIC, GFR, LIPID #### [address] [address] WBC 7.2 10 3/mcL Normal 4.5-10.8 [facility] Comment on above: Performed By: #### C MP, CBC, ADIFF, ANEU, URIC, GFR, LIPID #### [address] [id number] CMPon 04-14-2024 Albumin Level 3.2 G/dL Low 3.4-4.8 [facility] Comment on above: Performed By: #### C MP, CBC, ADIFF, ANEU, URIC, GFR, LIPID #### [address] [id number] Albumin/Globulin [Mass ratio] 0.7 {ratio} Low 1.1-2.5 [facility] Comment on above: Performed By: #### C MP, CBC, ADIFF, ANEU, URIC, GFR, LIPID #### [address] [id number] ALP [Catalytic activity/Vol] 98 U/L Normal 40-135 [facility] Comment on above: Performed By: #### C MP, CBC, ADIFF, ANEU, URIC, GFR, LIPID #### [address] [id number] ALT [Catalytic activity/Vol] 17 U/L Normal 16-63 [facility] Comment on above: Performed By: #### C MP, CBC, ADIFF, ANEU, URIC, GFR, LIPID #### [address] [address] AST [Catalytic activity/Vol] 19 U/L Normal 10-40 [facility] Comment on above: Performed By: #### C MP, CBC, ADIFF, ANEU, URIC, GFR, LIPID #### [address] [address] Bili Total 0.6 mg/dL Normal 0.2-1.0 [facility] Comment on above: Result Comment: Use of this assay is not recommended for patients undergoing treatment with eltrombopag due to the potential for falsely elevated results. Performed By: #### C MP, CBC, ADIFF, ANEU, URIC, GFR, LIPID #### [place] [address] BUN/Creatinine Ratio 23 ratio Normal 7-27 [facility] Comment on above: Performed By: #### C MP, CBC, ADIFF, ANEU, URIC, GFR, LIPID #### [place] [id number] Calcium [Mass/Vol] 9.3 mg/dL Normal 8.4-10.2 [facility] Comment on above: Performed By: #### C MP, CBC, ADIFF, ANEU, URIC, GFR, LIPID #### [place] [address] Chloride [Moles/Vol] 106 mmol/L Normal 98-107 [facility] Comment on above: Performed By: #### C MP, CBC, ADIFF, ANEU, URIC, GFR, LIPID #### [place] [address] CO2 [Moles/Vol] 27 mmol/L Normal 23-31 [facility] Comment on above: Performed By: #### C MP, CBC, ADIFF, ANEU, URIC, GFR, LIPID #### [place] [address] Creatinine [Mass/Vol] 1.32 mg/dL High 0.70-1.30 [facility] Comment on above: Result Comment: Test ing performed on Siemens Dimension EXL analyzer using a modified kinetic Pati technique. Performed By: #### C MP, CBC, ADIFF, ANEU, URIC, GFR, LIPID #### [place] [address] Electrolyte Balance 7.0 mEq/L Normal 4.0-15.0 [facility] Comment on above: Performed By: #### C MP, CBC, ADIFF, ANEU, URIC, GFR, LIPID #### [address] [address] Globulin 4.3 G/dL Normal [facility] Comment on above: Performed By: #### C MP, CBC, ADIFF, ANEU, URIC, GFR, LIPID #### [address] [address] Glucose [Mass/Vol] 85 mg/dL Normal 83-110 [facility] Comment on above: Performed By: #### C MP, CBC, ADIFF, ANEU, URIC, GFR, LIPID #### [address] [address] Potassium [Moles/Vol] 3.8 mmol/L Normal 3.5-5.1 [facility] Comment on above: Performed By: #### C MP, CBC, ADIFF, ANEU, URIC, GFR, LIPID #### [address] [address] Sodium [Moles/Vol] 140 mmol/L Normal 136-145 [facility] Comment on above: Performed By: #### C MP, CBC, ADIFF, ANEU, URIC, GFR, LIPID #### [address] [address] Total Protein 7.5 G/dL Normal 6.4-8.2 [facility] Comment on above: Performed By: #### C MP, CBC, ADIFF, ANEU, URIC, GFR, LIPID #### [address] [address] Urea nitrogen [Mass/Vol] 31 mg/dL High 7-18 [facility] Comment on above: Performed By: #### C MP, CBC, ADIFF, ANEU, URIC, GFR, LIPID #### [address] [address] LABORATORYOrdered By: SYSTEM SYSTEM on 04-14-2024 Albumin BCP dye [Mass/Vol] 3.2 G/dL Low 3.4 - 4.8 G/dL AO ADM SS Albumin/Globulin [Mass ratio] 0.7 {ratio} Low 1.1 - 2.5 ratio AO ADM SS ALP [Catalytic activity/Vol] 98 U/L Normal 40 - 135 U/L AO ADM SS ALT With P-5'-P [Catalytic activity/Vol] 17 U/L Normal 16 - 63 U/L AO ADM SS AST With P-5'-P [Catalytic activity/Vol] 19 U/L Normal 10 - 40 U/L AO ADM SS Basophils (Bld) [#/Vol] 0.0 103/mcL Normal 0.0 - 0.2 10^3/mcL AO Workflow SS Basophils/100 WBC (Bld) 0.4 % Normal 0.0 - 2.5 % AO Workflow SS Bilirubin [Mass/Vol] 0.6 mg/dL Normal 0.2 - 1 .0 mg/dL AO ADM SS Comment on above: Interpretive Data: U se of this assay is not recommended for patients undergoing treatment with eltrombopag due to the potential for falsely elevated results. Calcium [Mass/Vol] 9.3 mg/dL Normal 8.4 - 10. 2 mg/dL AO ADM SS Chloride [Moles/Vol] 106 mmol/L Normal 98 - 10 7 mmol/L AO ADM SS CO2 [Moles/Vol] 27 mmol/L Normal 23 - 31 mmol/L AO ADM SS Creatinine [Mass/Vol] 1.32 mg/dL High 0.70 - 1.30 mg/dL AO ADM SS Comment on above: Interpretive Data: T esting performed on Siemens Dimension EXL analyzer using a modified kinetic Pati technique. Electrolyte Balance 7.0 mEq/L Normal 4.0 - 15 .0 mEq/L AO ADM SS Eosinophil, Absolute 0.2 103/mcL Normal 0.0 - 0 .7 10^3/mcL AO Workflow SS Eosinophils/100 WBC (Bld) 2.1 % Normal 0.0 - 7.0 % AO Workflow SS Erythrocyte distribution width (RBC) [Ratio] 15.8 % High 11.5 - 15.5 % AO Workflow SS GFR/1.73 sq M.predicted among blacks MDRD (S/P/Bld) [Vol rate/Area] 63 ml/min/1.73sqm Invalid Interpretation Code AO Chemistry S Comment on above: Interpretive Data: GFR Population mean for , Non- Americans Ages 20-29 = 116 mL/min/1.73 sq.m. Ages 30-39 = 107 mL/min/1.73 sq.m. Ages 40-49 = 99 mL/min/1.73 sq.m. Ages 50-59 = 93 mL/min/1.73 sq.m. Ages 60-69 = 85 mL/min/1.73 sq.m. Ages 70+ = 75 mL/min/1.73 sq.m. Chronic Kidney Disease: Less than 60 mL/min/1.73 square meters End Stage Renal Disease: Less than 15 mL/min/1.73 square meters GFR/1.73 sq M.predicted among non-blacks MDRD (S/P/Bld) [Vol rate/Area] 52 ml/min/1.73sqm Invalid Interpretation Code AO Chemistry S Comment on above: Interpretive Data: GFR Population mean for , Non- Americans Ages 20-29 = 116 mL/min/1.73 sq.m. Ages 30-39 = 107 mL/min/1.73 sq.m. Ages 40-49 = 99 mL/min/1.73 sq.m. Ages 50-59 = 93 mL/min/1.73 sq.m. Ages 60-69 = 85 mL/min/1.73 sq.m. Ages 70+ = 75 mL/min/1.73 sq.m. Chronic Kidney Disease: Less than 60 mL/min/1.73 square meters End Stage Renal Disease: Less than 15 mL/min/1.73 square meters Globulin 4.3 G/dL Invalid Interpretation Code AO ADM SS Glucose [Mass/Vol] 85 mg/dL Normal 83 - 110 mg/dL AO ADM SS Hematocrit (Bld) [Volume fraction] 42.9 % Normal 40.0 - 52.0 % AO Workflow SS Hemoglobin (Bld) [Mass/Vol] 14.5 G/dL Normal 13.0 - 17.5 G/dL AO Workflow SS Lymphocytes (Bld) [#/Vol] 0.9 103/mcL Normal 0.9 - 4.3 10^3/mcL AO Workflow SS Lymphocytes/100 WBC (Bld) 12.2 % Low 20.0 - 40.0 % AO Workflow SS MCH (RBC) [Entitic mass] 34.2 pg High 27. 0 - 33.0 pg AO Workflow SS MCHC 33.8 G/dL Normal 32.0 - 36.0 G/dL AO Workflow SS MCV (RBC) [Entitic vol] 100.9 fL High 81.0 - 100.0 fL AO Workflow SS Monocytes (Bld) [#/Vol] 0.6 103/mcL Normal 0.1 - 1.4 10^3/mcL AO Workflow SS Monocytes/100 WBC (Bld) 8.4 % Normal 2.0 - 13.0 % AO Workflow SS Neutrophils (Bld) [#/Vol] 5.5 103/mcL Normal 2.3 - 8.1 10^3/mcL AO Workflow SS Neutrophils/100 WBC (Bld) 76.9 % High 50.0 - 75.0 % AO Workflow SS Platelet mean volume (Bld) [Entitic vol] 6.8 fL Normal 6.4 - 10.5 fL AO Workflow SS Platelets (Bld) [#/Vol] 205 103/mcL Normal 150 - 450 10^3/mcL AO Workflow SS Potassium [Moles/Vol] 3.8 mmol/L Normal 3.5 - 5.1 mmol/L AO ADM SS Protein [Mass/Vol] 7.5 G/dL Normal 6.4 - 8.2 G/dL AO ADM SS RBC (Bld) [#/Vol] 4.25 106/mcL Low 4.50 - 6.0 0 10^6/mcL AO Workflow SS Sodium [Moles/Vol] 140 mmol/L Normal 136 - 145 mmol/L AO ADM SS Urea nitrogen [Mass/Vol] 31 mg/dL High 7 - 18 mg/d L AO ADM SS Urea nitrogen/Creatinine [Mass ratio] 23 ratio Normal 7 - 27 ratio AO ADM SS Uric Acid Lvl 3.7 mg/dL Normal 3.5 - 7.2 mg/dL AO ADM SS WBC (Bld) [#/Vol] 7.2 103/mcL Normal 4.5 - 10.8 10^3/mcL AO Workflow SS LABORATORYOrdered By: Nora Chen on 04-14-2024 Cholesterol [Mass/Vol] 127 mg/dL Normal 0 - 2 00 mg/dL AO ADM SS Comment on above: Interpretive Data: C holesterol Reference Interval: Less than 200 Desirable 200-239 Borderline high risk 240 and above High risk Cholesterol in HDL [Mass/Vol] 59 mg/dL Normal 40 - 60 mg/dL AO ADM SS Cholesterol in LDL [Mass/Vol] 54 mg/dL Normal 0 - 130 mg/dL AO ADM SS Triglyceride [Mass/Vol] 69 mg/dL Normal 0 - 150 mg/dL AO ADM SS Comment on above: Interpretive Data: T riglyceride Reference Interval: Less than 150 Normal 150-199 Borderline high risk 200-499 High risk 500 or higher Very high risk LIPIDon 04-14-2024 Cholesterol [Mass/Vol] 127 mg/dL Normal 0-200 [facility] Comment on above: Result Comment: Chol esterol Reference Interval: Less than 200 Desirable 200-239 Borderline high risk 240 and above High risk Performed By: #### C MP, CBC, ADIFF, ANEU, URIC, GFR, LIPID #### [address] [address] Cholesterol in HDL [Mass/Vol] 59 mg/dL Normal 40-60 [facility] Comment on above: Performed By: #### C MP, CBC, ADIFF, ANEU, URIC, GFR, LIPID #### [address] [address] Cholesterol in LDL [Mass/Vol] 54 mg/dL Normal 0-130 [facility] Comment on above: Performed By: #### C MP, CBC, ADIFF, ANEU, URIC, GFR, LIPID #### [address] [address] Triglyceride [Mass/Vol] 69 mg/dL Normal 0-150 [facility] Comment on above: Result Comment: Trig lyceride Reference Interval: Less than 150 Normal 150-199 Borderline high risk 200-499 High risk 500 or higher Very high risk Performed By: #### C MP, CBC, ADIFF, ANEU, URIC, GFR, LIPID #### [address] [address] URICon 04-14-2024 Uric Acid Lvl 3.7 mg/dL Normal 3.5-7.2 [facility] Comment on above: Performed By: #### C MP, CBC, ADIFF, ANEU, URIC, GFR, LIPID #### [place] [id number] [place], [place] [address] Cardiology Visit Reporton Cardiology Visit Report [facility] [address] [place] [address] OFFICE VISIT Date of Service: 12/12/23 MR#: [id number] Acct: [id number] Name: FREDY BOX Rep #: [id number] : 1945 Provider: OLIVIA Chairez Age/Sex: 78/M Location: [facility] [place] [facility] Status: Signed HPI HPI History of Present Illness Details: This is a 78-year-old male who presents the office today for an urgent follow-up. He was evaluated [facility] in March 2023 for non-ST elevated myocardial infarction in the setting of a mechanical fall and rhabdomyolysis that was believed to be demand related. Echocardiogram showed ejection fraction of 70% and no regional wall motion abnormalities. He also has a past medical history of coronary artery disease with three stents in 2010 at outside facility, hypertension, and hyperlipidemia. Earlier this year his main complaint was fatigue and lower extremity edema. He underwent a stress test which was negative for ischemia, echocardiogram demonstrated a preserved ejection fraction. Pt note that since starting his SGLT2 he a decrease in his swelling. We were able to stop his diuretics. He has also started on CPAP. He has an increase in energy since these things have changes. He does not have any chest pain or SOB. He does not have any palpitations. He does have a cough, he is on an inhaler. Intake Vital Signs 09/11/23 13:26 12/12/23 13:32 Height 5 ft 8 in 5 ft 8 in Weight: 211 lb 203 lb BMI 32.1 30.9 BP 136/75 H 120/78 Blood Pressure Location Lt brachial Position Sitting Respiration 18 Pulse 56 L 56 L Pulse Source Monitor Pulse Oximetry (%) 94 Oxygen Delivery Method room air Intake Visit Reasons: 3 M FU Allergies No Known Allergies Allergy (Verified 09/11/23 13:28) Medications ???Medication ???Instructions ???Recorded ???Confirmed ???Type allopurinol 300 mg tablet 300 mg PO DAILY gout 04/12/23 12/12/23 History aspirin 81 mg capsule 81 mg PO DAILY heart health 04/12/23 12/12/23 History atorvastatin 20 mg tablet 20 mg PO DAILY cholesterol 04/12/23 12/12/23 History donepezil 10 mg tablet 10 mg PO QHS dementia 04/12/23 12/12/23 History memantine 5 mg tablet 5 mg PO BID dementia 04/12/23 09/11/23 History tamsulosin 0.4 mg capsule 0.4 mg PO DAILY urination 04/12/23 12/12/23 History timolol maleate 0.5 % eye drops 1 drp ophthalmic (eye) BID eye 04/12/23 12/12/23 History health losartan 25 mg tablet 25 mg PO DAILY #90 tabs 05/22/23 12/12/23 Rx vitamin B complex 1 tab PO DAILY 07/23/23 12/12/23 History buspirone 7.5 mg tablet 7.5 mg PO BID 09/11/23 12/12/23 History empagliflozin 10 mg tablet 10 mg PO QAM #90 tabs 09/12/23 12/12/23 Rx (Jardiance) fluticasone furoate 200 1 ea inhalation QDAY 12/12/23 12/12/23 History mcg-vilanterol 25 mcg/dose inhalation powder (Breo Ellipta) metoprolol succinate 25 mg 25 mg PO BID 12/12/23 12/12/23 History tablet,extended release 24 hr Have you fallen in the past year?: No PFSH Medical History Gout Essential hypertension Hyperlipidemia PSVT (paroxysmal supraventricular tachycardia) DIAN (acute kidney injury) Coronary arteriosclerosis after percutaneous transluminal coronary angioplasty (PTCA) Rhabdomyolysis Dementia CVA (cerebral vascular accident) Kidney calculi Surgical History History of heart artery stent ( 2010) Family History Father , Age 68 Myocardial infarction Brother Cancer Sister Cancer Mother Lung disease Social History Smoking Status: Never smoker second hand exposure: Yes alcohol intake: never substance use type: does not use caffeine: Yes Type: carbonated beverages and coffee ROS Const Const: Negative for fatigue, weakness, fever(s) or headache(s) Eyes Eyes: Negative for blind spots, loss of peripheral vision or transient loss of vision ENT ENT: Negative for headache(s), dizziness, tinnitus, Nosebleed/epistaxis or balance problems Cardio Chest Pain: No Palpitations: No Edema: None Muscle aches with walking: None Resp Respiratory: Negative for SOB with activity, SOB at rest, SOB orthopnea SOB lying down or Cough GI GI: Negative nausea, vomiting, heartburn or vomiting blood/hematemesis : Negative for hematuria Musc Musc: Negative for muscle aches/ myalgia, muscle weakness, joint pain or balance problems Neuro Neuro: Negative for dizziness, lightheadedness, near syncope, syncope, orthostatic symptoms, headache(s) or weakness Mo Hematologic/Lymphat ic: Negative for easy bleeding End (more content not included)... Normal [facility] .Auto Diffon 11-29-2023 Basophil, Absolute 0.0 10 3/mcL Normal 0.0-0.2 [facility] Comment on above: Performed By: #### C MP, CBC, ADIFF, ANEU, URIC, GFR, LIPID #### [address] [address] Basophils/100 WBC (Bld) 0.4 % Normal 0.0-2.5 [facility] Comment on above: Performed By: #### C MP, CBC, ADIFF, ANEU, URIC, GFR, LIPID #### [address] [address] Eosinophil, Absolute 0.2 10 3/mcL Normal 0.0-0.4 [facility] Comment on above: Performed By: #### C MP, CBC, ADIFF, ANEU, URIC, GFR, LIPID #### [address] [address] Eosinophils/100 WBC (Bld) 2.7 % Normal 0.0-7.0 [facility] Comment on above: Performed By: #### C MP, CBC, ADIFF, ANEU, URIC, GFR, LIPID #### [address] [address] Lymphocyte, Absolute 0.9 10 3/mcL Normal 0.8-3.9 [facility] Comment on above: Performed By: #### C MP, CBC, ADIFF, ANEU, URIC, GFR, LIPID #### [address] [address] Lymphocytes/100 WBC (Bld) 13.7 % Normal 10.0-50.0 [facility] Comment on above: Performed By: #### C MP, CBC, ADIFF, ANEU, URIC, GFR, LIPID #### [address] [address] Monocyte, Absolute 0.8 10 3/mcL Normal 0.2-1.0 [facility] Comment on above: Performed By: #### C MP, CBC, ADIFF, ANEU, URIC, GFR, LIPID #### [address] [address] Monocytes/100 WBC (Bld) 12.3 % Normal 1.7-13.0 [facility] Comment on above: Performed By: #### C MP, CBC, ADIFF, ANEU, URIC, GFR, LIPID #### [address] [address] Neutrophils/100 WBC (Bld) 70.9 % Normal 37.0-80.0 [facility] Comment on above: Performed By: #### C MP, CBC, ADIFF, ANEU, URIC, GFR, LIPID #### [address] [address] .GFRon 11-29-2023 GFR 58 ml/min/1.73sqm Normal [facility] Comment on above: Result Comment: GFR Population mean for , Non- Americans Ages 20-29 = 116 mL/min/1.73 sq.m. Ages 30-39 = 107 mL/min/1.73 sq.m. Ages 40-49 = 99 mL/min/1.73 sq.m. Ages 50-59 = 93 mL/min/1.73 sq.m. Ages 60-69 = 85 mL/min/1.73 sq.m. Ages 70+ = 75 mL/min/1.73 sq.m. Chronic Kidney Disease: Less than 60 mL/min/1.73 square meters End Stage Renal Disease: Less than 15 mL/min/1.73 square meters Performed By: #### C MP, CBC, ADIFF, ANEU, URIC, GFR, LIPID #### [address] [address] GFR Non- 47 ml/min/1.73sqm Normal [facility] Comment on above: Result Comment: GFR Population mean for , Non- Americans Ages 20-29 = 116 mL/min/1.73 sq.m. Ages 30-39 = 107 mL/min/1.73 sq.m. Ages 40-49 = 99 mL/min/1.73 sq.m. Ages 50-59 = 93 mL/min/1.73 sq.m. Ages 60-69 = 85 mL/min/1.73 sq.m. Ages 70+ = 75 mL/min/1.73 sq.m. Chronic Kidney Disease: Less than 60 mL/min/1.73 square meters End Stage Renal Disease: Less than 15 mL/min/1.73 square meters Performed By: #### C MP, CBC, ADIFF, ANEU, URIC, GFR, LIPID #### [address] [address] .NEUABSon 11-29-2023 Neutrophil, Absolute 4.8 10 3/mcL Normal 2.9-6.2 [facility] Comment on above: Performed By: #### C MP, CBC, ADIFF, ANEU, URIC, GFR, LIPID #### [address] [address] CBCon 11-29-2023 Erythrocyte distribution width (RBC) [Ratio] 15.7 % High 11.5-14.5 [facility] Comment on above: Performed By: #### C MP, CBC, ADIFF, ANEU, URIC, GFR, LIPID #### [address] [address] Hematocrit (Bld) [Volume fraction] 40.6 % Low 42.0-52.0 [facility] Comment on above: Performed By: #### C MP, CBC, ADIFF, ANEU, URIC, GFR, LIPID #### [address] [address] Hgb 13.4 G/dL Low 14.0-18.0 [facility] Comment on above: Performed By: #### C MP, CBC, ADIFF, ANEU, URIC, GFR, LIPID #### [address] [address] MCH (RBC) [Entitic mass] 33.4 pg High 27.0-31.2 [facility] Comment on above: Performed By: #### C MP, CBC, ADIFF, ANEU, URIC, GFR, LIPID #### [place] [address] MCHC 33.1 G/dL Normal 31.8-35.4 [facility] Comment on above: Performed By: #### C MP, CBC, ADIFF, ANEU, URIC, GFR, LIPID #### [address] [address] MCV (RBC) [Entitic vol] 101.0 fL High 80.0-94.0 [facility] Comment on above: Performed By: #### C MP, CBC, ADIFF, ANEU, URIC, GFR, LIPID #### [address] [address] Platelet 161 10 3/mcL Normal 130-400 [facility] Comment on above: Performed By: #### C MP, CBC, ADIFF, ANEU, URIC, GFR, LIPID #### [address] [address] Platelet mean volume (Bld) [Entitic vol] 6.9 fL Low 7.4-10.4 [facility] Comment on above: Performed By: #### C MP, CBC, ADIFF, ANEU, URIC, GFR, LIPID #### [place] [id number] RBC 4.02 10 6/mcL Low 4.04-6.13 [facility] Comment on above: Performed By: #### C MP, CBC, ADIFF, ANEU, URIC, GFR, LIPID #### [address] [address] WBC 6.7 10 3/mcL Normal 4.6-10.8 [facility] Comment on above: Performed By: #### C MP, CBC, ADIFF, ANEU, URIC, GFR, LIPID #### [address] [address] CMPon 11-29-2023 Albumin Level 3.2 G/dL Low 3.4-4.8 [facility] Comment on above: Performed By: #### C MP, CBC, ADIFF, ANEU, URIC, GFR, LIPID #### [place] [id number] Albumin/Globulin [Mass ratio] 0.9 {ratio} Low 1.1-2.5 [facility] Comment on above: Performed By: #### C MP, CBC, ADIFF, ANEU, URIC, GFR, LIPID #### [place] [id number] ALP [Catalytic activity/Vol] 105 U/L Normal 40-135 [facility] Comment on above: Performed By: #### C MP, CBC, ADIFF, ANEU, URIC, GFR, LIPID #### [place] [id number] ALT [Catalytic activity/Vol] 16 U/L Normal 16-63 [facility] Comment on above: Performed By: #### C MP, CBC, ADIFF, ANEU, URIC, GFR, LIPID #### [place] [id number] AST [Catalytic activity/Vol] 14 U/L Normal 10-40 [facility] Comment on above: Performed By: #### C MP, CBC, ADIFF, ANEU, URIC, GFR, LIPID #### [place] [id number] Bili Total 0.6 mg/dL Normal 0.2-1.0 [facility] Comment on above: Result Comment: Use of this assay is not recommended for patients undergoing treatment with eltrombopag due to the potential for falsely elevated results. Performed By: #### C MP, CBC, ADIFF, ANEU, URIC, GFR, LIPID #### [address] [address] BUN/Creatinine Ratio 19 ratio Normal 7-27 [facility] Comment on above: Performed By: #### C MP, CBC, ADIFF, ANEU, URIC, GFR, LIPID #### [address] [address] Calcium [Mass/Vol] 9.0 mg/dL Normal 8.4-10.2 [facility] Comment on above: Performed By: #### C MP, CBC, ADIFF, ANEU, URIC, GFR, LIPID #### [place] [address] Chloride [Moles/Vol] 106 mmol/L Normal 98-107 [facility] Comment on above: Performed By: #### C MP, CBC, ADIFF, ANEU, URIC, GFR, LIPID #### [place] [address] CO2 [Moles/Vol] 30 mmol/L Normal 23-31 [facility] Comment on above: Performed By: #### C MP, CBC, ADIFF, ANEU, URIC, GFR, LIPID #### [address] [address] Creatinine [Mass/Vol] 1.44 mg/dL High 0.70-1.30 [facility] Comment on above: Result Comment: Test ing performed on Siemens Dimension EXL analyzer using a modified kinetic Pati technique. Performed By: #### C MP, CBC, ADIFF, ANEU, URIC, GFR, LIPID #### [address] [address] Electrolyte Balance 5.0 mEq/L Normal 4.0-15.0 [facility] Comment on above: Performed By: #### C MP, CBC, ADIFF, ANEU, URIC, GFR, LIPID #### [address] [address] Globulin 3.5 G/dL Normal [facility] Comment on above: Performed By: #### C MP, CBC, ADIFF, ANEU, URIC, GFR, LIPID #### [address] [address] Glucose [Mass/Vol] 88 mg/dL Normal 83-110 [facility] Comment on above: Performed By: #### C MP, CBC, ADIFF, ANEU, URIC, GFR, LIPID #### [address] [address] Potassium [Moles/Vol] 4.2 mmol/L Normal 3.5-5.1 [facility] Comment on above: Performed By: #### C MP, CBC, ADIFF, ANEU, URIC, GFR, LIPID #### [place] [id number] Sodium [Moles/Vol] 141 mmol/L Normal 136-145 [facility] Comment on above: Performed By: #### C MP, CBC, ADIFF, ANEU, URIC, GFR, LIPID #### [address] [address] Total Protein 6.7 G/dL Normal 6.4-8.2 [facility] Comment on above: Performed By: #### C MP, CBC, ADIFF, ANEU, URIC, GFR, LIPID #### [address] [address] Urea nitrogen [Mass/Vol] 27 mg/dL High 7-18 [facility] Comment on above: Performed By: #### C MP, CBC, ADIFF, ANEU, URIC, GFR, LIPID #### [address] [address] LABORATORYOrdered By: SYSTEM SYSTEM on 11-29-2023 Natriuretic peptide.B prohormone N-Terminal [Mass/Vol] 357 pg/mL Normal 0 - 450 pg/mL AO ADM SS Comment on above: Interpretive Data: N T-proBNP results of less than 300 pg/mL effectively rules out acute congestive heart failure with 99% negative predictive value. Albumin BCP dye [Mass/Vol] 3.2 G/dL Low 3.4 - 4.8 G/dL AO ADM SS Albumin/Globulin [Mass ratio] 0.9 {ratio} Low 1.1 - 2.5 ratio AO ADM SS ALP [Catalytic activity/Vol] 105 U/L Normal 40 - 135 U/L AO ADM SS ALT With P-5'-P [Catalytic activity/Vol] 16 U/L Normal 16 - 63 U/L AO ADM SS AST With P-5'-P [Catalytic activity/Vol] 14 U/L Normal 10 - 40 U/L AO ADM SS Basophils (Bld) [#/Vol] 0.0 103/mcL Normal 0.0 - 0.2 10^3/mcL AO Workflow SS Basophils/100 WBC (Bld) 0.4 % Normal 0.0 - 2.5 % AO Workflow SS Bilirubin [Mass/Vol] 0.6 mg/dL Normal 0.2 - 1 .0 mg/dL AO ADM SS Comment on above: Interpretive Data: U se of this assay is not recommended for patients undergoing treatment with eltrombopag due to the potential for falsely elevated results. Calcium [Mass/Vol] 9.0 mg/dL Normal 8.4 - 10. 2 mg/dL AO ADM SS Chloride [Moles/Vol] 106 mmol/L Normal 98 - 10 7 mmol/L AO ADM SS CO2 [Moles/Vol] 30 mmol/L Normal 23 - 31 mmol/L AO ADM SS Creatinine [Mass/Vol] 1.44 mg/dL High 0.70 - 1.30 mg/dL AO ADM SS Comment on above: Interpretive Data: T esting performed on Siemens Dimension EXL analyzer using a modified kinetic Pati technique. Electrolyte Balance 5.0 mEq/L Normal 4.0 - 15 .0 mEq/L AO ADM SS Eosinophil, Absolute 0.2 103/mcL Normal 0.0 - 0 .4 10^3/mcL AO Workflow SS Eosinophils/100 WBC (Bld) 2.7 % Normal 0.0 - 7.0 % AO Workflow SS Erythrocyte distribution width (RBC) [Ratio] 15.7 % High 11.5 - 14.5 % AO Workflow SS GFR/1.73 sq M.predicted among blacks MDRD (S/P/Bld) [Vol rate/Area] 58 ml/min/1.73sqm Invalid Interpretation Code AO Chemistry S Comment on above: Interpretive Data: GFR Population mean for , Non- Americans Ages 20-29 = 116 mL/min/1.73 sq.m. Ages 30-39 = 107 mL/min/1.73 sq.m. Ages 40-49 = 99 mL/min/1.73 sq.m. Ages 50-59 = 93 mL/min/1.73 sq.m. Ages 60-69 = 85 mL/min/1.73 sq.m. Ages 70+ = 75 mL/min/1.73 sq.m. Chronic Kidney Disease: Less than 60 mL/min/1.73 square meters End Stage Renal Disease: Less than 15 mL/min/1.73 square meters GFR/1.73 sq M.predicted among non-blacks MDRD (S/P/Bld) [Vol rate/Area] 47 ml/min/1.73sqm Invalid Interpretation Code AO Chemistry S Comment on above: Interpretive Data: GFR Population mean for , Non- Americans Ages 20-29 = 116 mL/min/1.73 sq.m. Ages 30-39 = 107 mL/min/1.73 sq.m. Ages 40-49 = 99 mL/min/1.73 sq.m. Ages 50-59 = 93 mL/min/1.73 sq.m. Ages 60-69 = 85 mL/min/1.73 sq.m. Ages 70+ = 75 mL/min/1.73 sq.m. Chronic Kidney Disease: Less than 60 mL/min/1.73 square meters End Stage Renal Disease: Less than 15 mL/min/1.73 square meters Globulin 3.5 G/dL Invalid Interpretation Code AO ADM SS Glucose [Mass/Vol] 88 mg/dL Normal 83 - 110 mg/dL AO ADM SS Hematocrit (Bld) [Volume fraction] 40.6 % Low 42.0 - 52.0 % AO Workflow SS Hemoglobin (Bld) [Mass/Vol] 13.4 G/dL Low 14.0 - 18.0 G/dL AO Workflow SS Lymphocytes (Bld) [#/Vol] 0.9 103/mcL Normal 0.8 - 3.9 10^3/mcL AO Workflow SS Lymphocytes/100 WBC (Bld) 13.7 % Normal 10.0 - 50.0 % AO Workflow SS MCH (RBC) [Entitic mass] 33.4 pg High 27. 0 - 31.2 pg AO Workflow SS MCHC 33.1 G/dL Normal 31.8 - 35.4 G/dL AO Workflow SS MCV (RBC) [Entitic vol] 101.0 fL High 80.0 - 94.0 fL AO Workflow SS Monocytes (Bld) [#/Vol] 0.8 103/mcL Normal 0.2 - 1.0 10^3/mcL AO Workflow SS Monocytes/100 WBC (Bld) 12.3 % Normal 1.7 - 13.0 % AO Workflow SS Neutrophils (Bld) [#/Vol] 4.8 103/mcL Normal 2.9 - 6.2 10^3/mcL AO Workflow SS Neutrophils/100 WBC (Bld) 70.9 % Normal 37.0 - 80.0 % AO Workflow SS Platelet mean volume (Bld) [Entitic vol] 6.9 fL Low 7.4 - 10.4 fL AO Workflow SS Platelets (Bld) [#/Vol] 161 103/mcL Normal 130 - 400 10^3/mcL AO Workflow SS Potassium [Moles/Vol] 4.2 mmol/L Normal 3.5 - 5.1 mmol/L AO ADM SS Protein [Mass/Vol] 6.7 G/dL Normal 6.4 - 8.2 G/dL AO ADM SS RBC (Bld) [#/Vol] 4.02 106/mcL Low 4.04 - 6.1 3 10^6/mcL AO Workflow SS Sodium [Moles/Vol] 141 mmol/L Normal 136 - 145 mmol/L AO ADM SS Urea nitrogen [Mass/Vol] 27 mg/dL High 7 - 18 mg/d L AO ADM SS Urea nitrogen/Creatinine [Mass ratio] 19 ratio Normal 7 - 27 ratio AO ADM SS Uric Acid Lvl 4.1 mg/dL Normal 3.5 - 7.2 mg/dL AO ADM SS WBC (Bld) [#/Vol] 6.7 103/mcL Normal 4.6 - 10.8 10^3/mcL AO Workflow SS LABORATORYOrdered By: Michael Bates on 11-29-2023 Cholesterol [Mass/Vol] 122 mg/dL Normal 0 - 2 00 mg/dL AO ADM SS Comment on above: Interpretive Data: C holesterol Reference Interval: Less than 200 Desirable 200-239 Borderline high risk 240 and above High risk Cholesterol in HDL [Mass/Vol] 48 mg/dL Normal 40 - 60 mg/dL AO ADM SS Cholesterol in LDL [Mass/Vol] 40 mg/dL Normal 0 - 130 mg/dL AO ADM SS Triglyceride [Mass/Vol] 169 mg/dL High 0 - 150 mg/dL AO ADM SS Comment on above: Interpretive Data: T riglyceride Reference Interval: Less than 150 Normal 150-199 Borderline high risk 200-499 High risk 500 or higher Very high risk LIPIDon 11-29-2023 Cholesterol [Mass/Vol] 122 mg/dL Normal 0-200 [facility] Comment on above: Result Comment: Chol esterol Reference Interval: Less than 200 Desirable 200-239 Borderline high risk 240 and above High risk Performed By: #### C MP, CBC, ADIFF, ANEU, URIC, GFR, LIPID #### [address] [address] Cholesterol in HDL [Mass/Vol] 48 mg/dL Normal 40-60 [facility] Comment on above: Performed By: #### C MP, CBC, ADIFF, ANEU, URIC, GFR, LIPID #### [address] [address] Cholesterol in LDL [Mass/Vol] 40 mg/dL Normal 0-130 [facility] Comment on above: Performed By: #### C MP, CBC, ADIFF, ANEU, URIC, GFR, LIPID #### [address] [address] Triglyceride [Mass/Vol] 169 mg/dL High 0-150 [facility] Comment on above: Result Comment: Trig lyceride Reference Interval: Less than 150 Normal 150-199 Borderline high risk 200-499 High risk 500 or higher Very high risk Performed By: #### C MP, CBC, ADIFF, ANEU, URIC, GFR, LIPID #### [address] [address] PBNPon 11-29-2023 Natriuretic peptide B (Bld) [Mass/Vol] 357 pg/mL Normal 0-450 [facility] Comment on above: Result Comment: NT-p roBNP results of less than 300 pg/mL effectively rules out acute congestive heart failure with 99% negative predictive value. Performed By: #### P BNP #### [address] [place] [address] URICon 11-29-2023 Uric Acid Lvl 4.1 mg/dL Normal 3.5-7.2 [facility] Comment on above: Performed By: #### C MP, CBC, ADIFF, ANEU, URIC, GFR, LIPID #### [address] [address] Chest PA and Lateralon 11-27 Chest PA and Lateral [facility] Imaging Services [address] [place] [address] Chest PA and Lateral MR#: [id number] Acct: [id number] Name: FREDY BOX Rep #: [id number] : 1945 78 From: Arsh wells MD PCP: Dr. Angela Mera MD Status: REG CLI Study: Chest PA and Lateral Date of Exam: 11/28/23 Exam# [id number] Ordering Dr: Po Elmore MD -[id number] INDICATION: COUGH EXAMINATION/TECHNIQ UE: X-RAY - XR Chest 2 Views COMPARISON: No relevant prior comparison study available FINDINGS: LINES/DEVICES: None. LUNGS: Low lung volumes. Calcified granulomas are noted. No consolidation, edema or effusion. No pneumothorax. MEDIASTINUM AND CARDIOVASCULAR STRUCTURES: Cardiac silhouette not enlarged. Aortic calcifications are seen. Central airways and mediastinal contour are unremarkable. BONES AND SOFT TISSUES: No acute abnormality. RAD/Chest PA and Lateral IMPRESSION: No acute pulmonary finding. Electronically Signed: Arsh Pitts MD at 16:47 EDT , CC: Dr. Po Elmore MD; Dr. Angela Mera MD Manager Farm: Signed Normal [facility] No Panel Informationon 10-04 Zulema albicans Zulema albicans [facility] Culture Urine 10,000 - 50,000 cfu/ml Zulema albicans Contact Microbiology within 72 hours if further identification is indicated ([id number]). Haswell counts from a single urine are equivocal in determining infection vs. colonization of yeast. Multiple cultures at least 24 hours apart may be helpful in differentiating colonization from infection. [facility] Absolute lymphocyte countOrd ered By: Lakesha Bettencourt on 07-23-2023 Lymphocytes Auto (Unsp spec) [#/Vol] 1.10 10*3/uL 0.83-4.51 [facility] Automated lymphocyte count a s percentage of total leukocytesOrdered By: Lakesha Bettencourt on 07-23-2023 Lymphocytes/100 WBC Auto (Unsp spec) 12.8 % 19-41 [facility] Basophil percentageOrdered B y: Lakesha Bettencourt on 07-23-2023 Basophils/100 WBC (Bld) 0.3 % 0-1 [facility] Chloride [Moles/Vol] 110 mmol/L 98-107 [facility] Eosinophils/100 WBC (Bld) 2.1 % 0-5 [facility] Glucose [Mass/Vol] 105 mg/dL 74-106 [facility] Comment on above: Fasting Glucose resu lt from 100 to 125 mg/dL suggests IMPAIRED HOMEOSTASIS per A.D.A. criteria. Hemoglobin (Bld) [Mass/Vol] 12.3 g/dL 13.0-16.5 [facility] Monocytes/100 WBC (Bld) 10.4 % 0-10 [facility] Neutrophils (Bld) [#/Vol] 6.4 10*3/uL 2.0-7.7 [facility] Neutrophils/100 WBC (Bld) 73.9 % 47-70 [facility] Potassium [Moles/Vol] 3.8 mmol/L 3.5-5.1 [facility] Sodium [Moles/Vol] 140 mmol/L 136-145 [facility] WBC (Bld) [#/Vol] 8.6 10*3/uL 4.4-11.0 [facility] Determination of erythrocyte mean corpuscular volume (MCV)Ordered By: Lakesha Bettencourt on 07-23-2023 MCV (RBC) [Entitic vol] 97.9 fL 80-94 [facility] Erythrocyte distribution wid th ratioOrdered By: Lakesha Bettencourt on 07-23-2023 Erythrocyte distribution width (RBC) [Ratio] 16.5 % 11.6-14.6 [facility] Erythrocyte distribution wid th standard deviationOrdered By: Lakesha Bettencourt on 07-23-2023 Erythrocyte distribution width (RBC) [Entitic vol] 58.7 fL 35.1-43.9 [facility] Hematocrit Auto (Bld) [Volum e fraction]Ordered By: Lakesha Bettencourt on 07-23-2023 Hematocrit (Bld) [Volume fraction] 37.8 % 40-54 [facility] Immature granulocytes/100 WB C Auto (Bld)Ordered By: Lakesha Bettencourt on 07-23-2023 Immature granulocytes/100 WBC (Bld) 0.500 % 0.0-0.9 [facility] Comment on above: IG% - Immature Granu locytes (promyelocytes, myelocytes and metamyelocytes) > 1% indicates that a LEFT SHIFT is Present. Laboratory - Chemistry and C hemistry - challengeOrdered By: Lakesha Bettencourt on 07-23-2023 CO2 [Moles/Vol] 24.0 mmol/L 21.0-32.0 [facility] Natriuretic peptide B (Bld) [Mass/Vol] 45.7 pg/mL 0-100 [facility] Urea nitrogen/Creatinine [Mass ratio] 23.7 mg/mg 10-20 [facility] Laboratory - Hematology and Cell countsOrdered By: Lakesha Bettencourt on 07-23-2023 MCH (RBC) [Entitic mass] 31.9 pg 27.0-32.0 [facility] MCHC (RBC) [Mass/Vol] 32.5 g/dL 32-36 [facility] Nucleated RBC/100 WBC (Bld) [Ratio] 0 % 0-5 [facility] Platelet mean volume (Bld) [Entitic vol] 8.9 fL 6.2-12.0 [facility] Platelets (Bld) [#/Vol] 167 10*3/uL 150-450 [facility] No Panel InformationOrdered By: Lakesha Bettencourt on 07-23-2023 Estimated GFR (MDRD) Amer 51 mL/min >60 [facility] Comment on above: GFR Calc Estimated GFR (MDRD) Non-Af Amer 42 mL/min >60 [facility] Comment on above: Non- GFR Calc Free Triiodothyronine (T3) pg/dL 2.3 pg/mL 2.18-3.98 [facility] RBC Auto (Bld) [#/Vol]Ordere d By: Lakesha Bettencourt on 07-23-2023 RBC (Bld) [#/Vol] 3.86 10*6/uL 4.6-6.2 [facility] Serum or plasma calcium ender urement (mass/volume)Ordered By: Lakesha Bettencourt on 07-23-2023 Calcium [Mass/Vol] 9.4 mg/dL 8.5-10.1 [facility] Serum or plasma creatinine m easurement (mass/volume)Ordered By: Lakesha Bettencourt on 07-23-2023 Creatinine [Mass/Vol] 1.69 mg/dL 0.70-1.30 [facility] Comment on above: The validity of the calculated GFR & GFRAA in patients over 70 years has not been determined. Clinical correlation is essential. Serum or plasma thyroid stim ulating hormone (TSH) measurement (units/volume)Ordered By: Lakesha Bettencourt on 07-23-2023 TSH Qn 1.19 uIU/mL 0.358-3.74 [facility] Serum or plasma urea nitroge n measurement (mass/volume)Ordered By: Lakesha Bettencourt on 07-23-2023 Urea nitrogen [Mass/Vol] 40 mg/dL 7-18 [facility] Thin prep Papanicolaou smear with manual screeningOrdered By: Lakesha Bettencourt on 07-23-2023 Thin prep Papanicolaou smear with manual screening 6 5-15 [facility] Thin prep Papanicolaou smear with manual screening 0.84 ng/dL 0.76-1.46 [facility] .Auto Diffon 07-04-2023 Basophil, Absolute 0.0 10 3/mcL Normal 0.0-0.2 [facility] ([place]) Comment on above: Performed By: #### C MP, ADIFF, ANEU, GFR, URIC, CBC #### [address] [address] Basophils/100 WBC (Bld) 0.7 % Normal 0.0-2.5 A [facility] ([place]) Comment on above: Performed By: #### C MP, ADIFF, ANEU, GFR, URIC, CBC #### [address] [address] Eosinophil, Absolute 0.3 10 3/mcL Normal 0.0-0.4 [facility] ([place]) Comment on above: Performed By: #### C MP, ADIFF, ANEU, GFR, URIC, CBC #### [address] [address] Eosinophils/100 WBC (Bld) 6.0 % Normal 0.0-7.0 [facility] ([place]) Comment on above: Performed By: #### C MP, ADIFF, ANEU, GFR, URIC, CBC #### [address] [address] Lymphocyte, Absolute 0.7 10 3/mcL Low 0.8-3.9 [facility] ([place]) Comment on above: Performed By: #### C MP, ADIFF, ANEU, GFR, URIC, CBC #### [address] [address] Lymphocytes/100 WBC (Bld) 13.7 % Normal 10.0-50.0 [facility] ([place]) Comment on above: Performed By: #### C MP, ADIFF, ANEU, GFR, URIC, CBC #### [address] [address] Monocyte, Absolute 0.6 10 3/mcL Normal 0.2-1.0 [facility] ([place]) Comment on above: Performed By: #### C MP, ADIFF, ANEU, GFR, URIC, CBC #### [address] [address] Monocytes/100 WBC (Bld) 10.9 % Normal 1.7-13.0 A [facility] ([place]) Comment on above: Performed By: #### C MP, ADIFF, ANEU, GFR, URIC, CBC #### [address] [address] Neutrophils/100 WBC (Bld) 68.7 % Normal 37.0-80.0 [facility] ([place]) Comment on above: Performed By: #### C MP, ADIFF, ANEU, GFR, URIC, CBC #### [address] [address] .GFRon 07-04-2023 GFR Non- 37 ml/min/1.73sqm Normal [facility] ([place]) Comment on above: Result Comment: GFR Population mean for , Non- Americans Ages 20-29 = 116 mL/min/1.73 sq.m. Ages 30-39 = 107 mL/min/1.73 sq.m. Ages 40-49 = 99 mL/min/1.73 sq.m. Ages 50-59 = 93 mL/min/1.73 sq.m. Ages 60-69 = 85 mL/min/1.73 sq.m. Ages 70+ = 75 mL/min/1.73 sq.m. Chronic Kidney Disease: Less than 60 mL/min/1.73 square meters End Stage Renal Disease: Less than 15 mL/min/1.73 square meters Performed By: #### C MP, ADIFF, ANEU, GFR, URIC, CBC #### [address] [address] GFR 45 ml/min/1.73sqm Normal [facility] ([place]) Comment on above: Result Comment: GFR Population mean for , Non- Americans Ages 20-29 = 116 mL/min/1.73 sq.m. Ages 30-39 = 107 mL/min/1.73 sq.m. Ages 40-49 = 99 mL/min/1.73 sq.m. Ages 50-59 = 93 mL/min/1.73 sq.m. Ages 60-69 = 85 mL/min/1.73 sq.m. Ages 70+ = 75 mL/min/1.73 sq.m. Chronic Kidney Disease: Less than 60 mL/min/1.73 square meters End Stage Renal Disease: Less than 15 mL/min/1.73 square meters Performed By: #### C MP, ADIFF, ANEU, GFR, URIC, CBC #### [place] [id number] .NEUABSon 07-04-2023 Neutrophil, Absolute 3.5 10 3/mcL Normal 2.9-6.2 [facility] ([place]) Comment on above: Performed By: #### C MP, ADIFF, ANEU, GFR, URIC, CBC #### [place] [address] CBCon 07-04-2023 Erythrocyte distribution width (RBC) [Ratio] 17.9 % High 11.5-14.5 [facility] ([place]) Comment on above: Performed By: #### C MP, ADIFF, ANEU, GFR, URIC, CBC #### [place] [address] Hematocrit (Bld) [Volume fraction] 37.2 % Low 42.0-52.0 [facility] ([place]) Comment on above: Performed By: #### C MP, ADIFF, ANEU, GFR, URIC, CBC #### [place] [address] Hgb 12.4 G/dL Low 14.0-18.0 [facility] ([place]) Comment on above: Performed By: #### C MP, ADIFF, ANEU, GFR, URIC, CBC #### [place] [address] MCH (RBC) [Entitic mass] 33.0 pg High 27.0-31.2 [facility] ([place]) Comment on above: Performed By: #### C MP, ADIFF, ANEU, GFR, URIC, CBC #### [place] [address] MCHC 33.4 G/dL Normal 31.8-35.4 [facility] ([place]) Comment on above: Performed By: #### C MP, ADIFF, ANEU, GFR, URIC, CBC #### [address] [address] MCV (RBC) [Entitic vol] 98.6 fL High 80.0-94.0 A [facility] ([place]) Comment on above: Performed By: #### C MP, ADIFF, ANEU, GFR, URIC, CBC #### [address] [address] Platelet 181 10 3/mcL Normal 130-400 [facility] ([place]) Comment on above: Performed By: #### C MP, ADIFF, ANEU, GFR, URIC, CBC #### [address] [address] Platelet mean volume (Bld) [Entitic vol] 7.5 fL Normal 7.4-10.4 [facility] ([place]) Comment on above: Performed By: #### C MP, ADIFF, ANEU, GFR, URIC, CBC #### [address] [address] RBC 3.77 10 6/mcL Low 4.04-6.13 [facility] ([place]) Comment on above: Performed By: #### C MP, ADIFF, ANEU, GFR, URIC, CBC #### [address] [address] WBC 5.1 10 3/mcL Normal 4.6-10.8 [facility] ([place]) Comment on above: Performed By: #### C MP, ADIFF, ANEU, GFR, URIC, CBC #### [address] [address] CMPon 07-04-2023 Albumin Level 3.2 G/dL Low 3.4-4.8 [facility] ([place]) Comment on above: Performed By: #### C MP, ADIFF, ANEU, GFR, URIC, CBC #### [address] [address] Albumin/Globulin [Mass ratio] 1.0 {ratio} Low 1.1-2.5 [facility] ([place]) Comment on above: Performed By: #### C MP, ADIFF, ANEU, GFR, URIC, CBC #### [address] [address] ALP [Catalytic activity/Vol] 89 U/L Normal 40-135 [facility] ([place]) Comment on above: Performed By: #### C MP, ADIFF, ANEU, GFR, URIC, CBC #### [address] [address] ALT [Catalytic activity/Vol] 26 U/L Normal 16-63 [facility] ([place]) Comment on above: Performed By: #### C MP, ADIFF, ANEU, GFR, URIC, CBC #### [address] [address] AST [Catalytic activity/Vol] 19 U/L Normal 10-40 [facility] ([place]) Comment on above: Performed By: #### C MP, ADIFF, ANEU, GFR, URIC, CBC #### [address] [address] Bili Total 0.4 mg/dL Normal 0.2-1.0 [facility] ([place]) Comment on above: Result Comment: Use of this assay is not recommended for patients undergoing treatment with eltrombopag due to the potential for falsely elevated results. Performed By: #### C MP, ADIFF, ANEU, GFR, URIC, CBC #### [address] [address] BUN/Creatinine Ratio 22 ratio Normal 7-27 [facility] ([place]) Comment on above: Performed By: #### C MP, ADIFF, ANEU, GFR, URIC, CBC #### [address] [address] Calcium [Mass/Vol] 8.5 mg/dL Normal 8.4-10.2 [facility] ([place]) Comment on above: Performed By: #### C MP, ADIFF, ANEU, GFR, URIC, CBC #### [address] [address] Chloride [Moles/Vol] 106 mmol/L Normal 98-107 [facility] ([place]) Comment on above: Performed By: #### C MP, ADIFF, ANEU, GFR, URIC, CBC #### [address] [address] CO2 [Moles/Vol] 25 mmol/L Normal 23-31 [facility] ([place]) Comment on above: Performed By: #### C MP, ADIFF, ANEU, GFR, URIC, CBC #### [address] [address] Creatinine [Mass/Vol] 1.77 mg/dL High 0.70-1.30 [facility] ([place]) Comment on above: Performed By: #### C MP, ADIFF, ANEU, GFR, URIC, CBC #### [address] [address] Electrolyte Balance 8.0 mEq/L Normal 4.0-15.0 [facility] ([place]) Comment on above: Performed By: #### C MP, ADIFF, ANEU, GFR, URIC, CBC #### [address] [address] Globulin 3.3 G/dL Normal [facility] ([place]) Comment on above: Performed By: #### C MP, ADIFF, ANEU, GFR, URIC, CBC #### [address] [address] Glucose [Mass/Vol] 103 mg/dL Normal 83-110 [facility] ([place]) Comment on above: Performed By: #### C MP, ADIFF, ANEU, GFR, URIC, CBC #### [address] [address] Potassium [Moles/Vol] 4.1 mmol/L Normal 3.5-5.1 [facility] ([place]) Comment on above: Performed By: #### C MP, ADIFF, ANEU, GFR, URIC, CBC #### [address] [address] Sodium [Moles/Vol] 139 mmol/L Normal 136-145 [facility] ([place]) Comment on above: Performed By: #### C MP, ADIFF, ANEU, GFR, URIC, CBC #### [place] [address] [place], [place] [address] Total Protein 6.5 G/dL Normal 6.4-8.2 [facility] ([place]) Comment on above: Performed By: #### C MP, ADIFF, ANEU, GFR, URIC, CBC #### [place] [address] [place], [place] [address] Urea nitrogen [Mass/Vol] 39 mg/dL High 7-18 [facility] ([place]) Comment on above: Performed By: #### C MP, ADIFF, ANEU, GFR, URIC, CBC #### [place] [address] [place], [place] [address] LABORATORYOrdered By: SYSTEM SYSTEM on 07-04-2023 Albumin BCP dye [Mass/Vol] 3.2 G/dL Low 3.4 - 4.8 G/dL AO ADM SS Albumin/Globulin [Mass ratio] 1.0 {ratio} Low 1.1 - 2.5 ratio AO ADM SS ALP [Catalytic activity/Vol] 89 U/L Normal 40 - 135 U/L AO ADM SS ALT With P-5'-P [Catalytic activity/Vol] 26 U/L Normal 16 - 63 U/L AO ADM SS AST With P-5'-P [Catalytic activity/Vol] 19 U/L Normal 10 - 40 U/L AO ADM SS Basophil, Absolute 0.0 103/mcL Normal 0.0 - 0.2 10^3/mcL AO Workflow SS Basophils/100 WBC (Bld) 0.7 % Normal 0.0 - 2.5 % AO Workflow SS Bilirubin [Mass/Vol] 0.4 mg/dL Normal 0.2 - 1 .0 mg/dL AO ADM SS Comment on above: Interpretive Data: U se of this assay is not recommended for patients undergoing treatment with eltrombopag due to the potential for falsely elevated results. Calcium [Mass/Vol] 8.5 mg/dL Normal 8.4 - 10. 2 mg/dL AO ADM SS Chloride [Moles/Vol] 106 mmol/L Normal 98 - 10 7 mmol/L AO ADM SS CO2 [Moles/Vol] 25 mmol/L Normal 23 - 31 mmol/L AO ADM SS Creatinine [Mass/Vol] 1.77 mg/dL High 0.70 - 1.30 mg/dL AO ADM SS Electrolyte Balance 8.0 mEq/L Normal 4.0 - 15 .0 mEq/L AO ADM SS Eosinophil, Absolute 0.3 103/mcL Normal 0.0 - 0 .4 10^3/mcL AO Workflow SS Eosinophils/100 WBC (Bld) 6.0 % Normal 0.0 - 7.0 % AO Workflow SS Erythrocyte distribution width (RBC) [Ratio] 17.9 % High 11.5 - 14.5 % AO Workflow SS GFR/1.73 sq M.predicted among blacks MDRD (S/P/Bld) [Vol rate/Area] 45 ml/min/1.73sqm Invalid Interpretation Code AO Chemistry S Comment on above: Interpretive Data: GFR Population mean for , Non- Americans Ages 20-29 = 116 mL/min/1.73 sq.m. Ages 30-39 = 107 mL/min/1.73 sq.m. Ages 40-49 = 99 mL/min/1.73 sq.m. Ages 50-59 = 93 mL/min/1.73 sq.m. Ages 60-69 = 85 mL/min/1.73 sq.m. Ages 70+ = 75 mL/min/1.73 sq.m. Chronic Kidney Disease: Less than 60 mL/min/1.73 square meters End Stage Renal Disease: Less than 15 mL/min/1.73 square meters GFR/1.73 sq M.predicted among non-blacks MDRD (S/P/Bld) [Vol rate/Area] 37 ml/min/1.73sqm Invalid Interpretation Code AO Chemistry S Comment on above: Interpretive Data: GFR Population mean for , Non- Americans Ages 20-29 = 116 mL/min/1.73 sq.m. Ages 30-39 = 107 mL/min/1.73 sq.m. Ages 40-49 = 99 mL/min/1.73 sq.m. Ages 50-59 = 93 mL/min/1.73 sq.m. Ages 60-69 = 85 mL/min/1.73 sq.m. Ages 70+ = 75 mL/min/1.73 sq.m. Chronic Kidney Disease: Less than 60 mL/min/1.73 square meters End Stage Renal Disease: Less than 15 mL/min/1.73 square meters Globulin 3.3 G/dL Invalid Interpretation Code AO ADM SS Glucose [Mass/Vol] 103 mg/dL Normal 83 - 110 mg/dL AO ADM SS Hematocrit (Bld) [Volume fraction] 37.2 % Low 42.0 - 52.0 % AO Workflow SS Hemoglobin (Bld) [Mass/Vol] 12.4 G/dL Low 14.0 - 18.0 G/dL AO Workflow SS Lymphocyte, Absolute 0.7 103/mcL Low 0.8 - 3 .9 10^3/mcL AO Workflow SS Lymphocytes/100 WBC (Bld) 13.7 % Normal 10.0 - 50.0 % AO Workflow SS MCH (RBC) [Entitic mass] 33.0 pg High 27. 0 - 31.2 pg AO Workflow SS MCHC 33.4 G/dL Normal 31.8 - 35.4 G/dL AO Workflow SS MCV (RBC) [Entitic vol] 98.6 fL High 80.0 - 94.0 fL AO Workflow SS Monocyte, Absolute 0.6 103/mcL Normal 0.2 - 1.0 10^3/mcL AO Workflow SS Monocytes/100 WBC (Bld) 10.9 % Normal 1.7 - 13.0 % AO Workflow SS Neutrophil, Absolute 3.5 103/mcL Normal 2.9 - 6 .2 10^3/mcL AO Workflow SS Neutrophils/100 WBC (Bld) 68.7 % Normal 37.0 - 80.0 % AO Workflow SS Platelet mean volume (Bld) [Entitic vol] 7.5 fL Normal 7.4 - 10.4 fL AO Workflow SS Platelets (Bld) [#/Vol] 181 103/mcL Normal 130 - 400 10^3/mcL AO Workflow SS Potassium [Moles/Vol] 4.1 mmol/L Normal 3.5 - 5.1 mmol/L AO ADM SS Protein [Mass/Vol] 6.5 G/dL Normal 6.4 - 8.2 G/dL AO ADM SS RBC (Bld) [#/Vol] 3.77 106/mcL Low 4.04 - 6.1 3 10^6/mcL AO Workflow SS Sodium [Moles/Vol] 139 mmol/L Normal 136 - 145 mmol/L AO ADM SS Urea nitrogen [Mass/Vol] 39 mg/dL High 7 - 18 mg/d L AO ADM SS Urea nitrogen/Creatinine [Mass ratio] 22 ratio Normal 7 - 27 ratio AO ADM SS Uric Acid Lvl 6.6 mg/dL Normal 3.5 - 7.2 mg/dL AO ADM SS WBC (Bld) [#/Vol] 5.1 103/mcL Normal 4.6 - 10.8 10^3/mcL AO Workflow SS URICon 07-04-2023 Uric Acid Lvl 6.6 mg/dL Normal 3.5-7.2 [facility] ([place]) Comment on above: Performed By: #### C MP, ADIFF, ANEU, GFR, URIC, CBC #### [place] [id number] [place], [place] [address] CT ANGIOGRAPHY CHEST W/CONTR [place] 06-22-2023 CT ANGIOGRAPHY CHEST W/CONTRAST ORIGINAL EXAMINATION: CTA OF THE CHEST 06/22/2023 12:21 pm TECHNIQUE: CTA of the chest was performed after the administration of intravenous contrast. Multiplanar reformatted images are provided for review. MIP images are provided for review. Automated exposure control, iterative reconstruction, and/or weight based adjustment of the mA/kV was utilized to reduce the radiation dose to as low as reasonably achievable. COMPARISON: None. 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 There are minor degenerative changes noted in the spine as well. Small scattered areas of pulmonary and pleural scarring are seen. Scattered calcified granulomas are noted. No focal area of consolidation is visible and there is no pleural fluid seen. Calcified right hilar lymph nodes are present. No adenopathy is visible. No pulmonary artery defect is identified to suggest thromboembolism. Small left renal cyst is an incidental finding. No additional contributory finding seen. IMPRESSION: No evidence of pulmonary embolism or acute pulmonary abnormality. Evidence for previous granulomatous disease. Interpreted by: Jack Nunn MD Preliminary Report By: Jack Nunn MD Electronically signed By Jack Nunn MD Dictated Date: 06/22/2023 12:22:44 PM Prelim Date: 06/22/2023 12:25:09 PM Sign Date: 06/22/2023 12:25:09 PM Ordering Provider: ANGELA Rodrigez [facility] ([place]) XR CHEST 2 VIEWSon XR CHEST 2 VIEWS ORIGINAL EXAMINATION: TWO XRAY VIEWS OF THE CHEST06/21/2023 2:16 pm COMPARISON: None HISTORY: ORDERING SYSTEM PROVIDED HISTORY: Reason for Exam: Shortness of breath, CHF FINDINGS: The heart size is normal.Numerous calcified lung nodules visualized. Discoid atelectasis or scarring seen in the central right lung. There is no pulmonary consolidation. No pneumothorax or pleural effusion. No aggressive osseous lesions identified.Degenera tive changes seen of the spine. IMPRESSION: 1. Numerous calcified lung nodules. 2. Discoid atelectasis or scarring in the central right lung. Interpreted by: Timmy Woodward MD Preliminary Report By: Timmy Woodward MD Electronically signed By Timmy Woodward MD Dictated Date: 06/22/2023 3:26:55 PM Prelim Date: 06/22/2023 3:28:10 PM Sign Date: 06/22/2023 3:28:10 PM Ordering Provider: ANGELA MERA [facility] ([place]) .GFRon 06-21-2023 GFR 68 ml/min/1.73sqm Normal [facility] ([place]) Comment on above: Result Comment: GFR Population mean for , Non- Americans Ages 20-29 = 116 mL/min/1.73 sq.m. Ages 30-39 = 107 mL/min/1.73 sq.m. Ages 40-49 = 99 mL/min/1.73 sq.m. Ages 50-59 = 93 mL/min/1.73 sq.m. Ages 60-69 = 85 mL/min/1.73 sq.m. Ages 70+ = 75 mL/min/1.73 sq.m. Chronic Kidney Disease: Less than 60 mL/min/1.73 square meters End Stage Renal Disease: Less than 15 mL/min/1.73 square meters Performed By: #### C BC, CMP, DIFF, MG, MORPH, URIC, CK, TROPHS, DIMER, GFR ####Marissa [address] [place], [place] [address] GFR Non- 56 ml/min/1.73sqm Normal [facility] ([place]) Comment on above: Result Comment: GFR Population mean for , Non- Americans Ages 20-29 = 116 mL/min/1.73 sq.m. Ages 30-39 = 107 mL/min/1.73 sq.m. Ages 40-49 = 99 mL/min/1.73 sq.m. Ages 50-59 = 93 mL/min/1.73 sq.m. Ages 60-69 = 85 mL/min/1.73 sq.m. Ages 70+ = 75 mL/min/1.73 sq.m. Chronic Kidney Disease: Less than 60 mL/min/1.73 square meters End Stage Renal Disease: Less than 15 mL/min/1.73 square meters Performed By: #### C BC, CMP, DIFF, MG, MORPH, URIC, CK, TROPHS, DIMER, GFR ####[address] [place], [place] [address] .Manual Diffon 06-21-2023 Basophil %, Manual 0.0 % Normal 0.0-2.5 [facility] ([place]) Comment on above: Performed By: #### C BC, CMP, DIFF, MG, MORPH, URIC, CK, TROPHS, DIMER, GFR ####[address] [place], [place] [address] Basophil, Abs Manual 0.0 10 3/mcL Normal 0.0-0.2 [facility] ([place]) Comment on above: Performed By: #### C BC, CMP, DIFF, MG, MORPH, URIC, CK, TROPHS, DIMER, GFR ###Ray [address] [place], [place] [address] Eosinophil %, Manual 3.0 % Normal 0.0-7.0 [facility] ([place]) Comment on above: Performed By: #### C BC, CMP, DIFF, MG, MORPH, URIC, CK, TROPHS, DIMER, GFR ####[address] [place], [place] [address] Eosinophil, Abs Manual 0.3 10 3/mcL Normal 0.0-0.4 [facility] ([place]) Comment on above: Performed By: #### C BC, CMP, DIFF, MG, MORPH, URIC, CK, TROPHS, DIMER, GFR ####[address]issa [address] [place], [place] [address] Lymphocyte %, Manual 19.0 % Normal 10.0-50.0 [facility] ([place]) Comment on above: Performed By: #### C BC, CMP, DIFF, MG, MORPH, URIC, CK, TROPHS, DIMER, GFR ####[address] [place], [place] [address] Lymphocyte, Abs Manual 1.9 10 3/mcL Normal 0.8-3.9 [facility] ([place]) Comment on above: Performed By: #### C BC, CMP, DIFF, MG, MORPH, URIC, CK, TROPHS, DIMER, GFR ####[address] [place], [place] [address] Monocyte %, Manual 5.0 % Normal 1.7-13.0 [facility] ([place]) Comment on above: Performed By: #### C BC, CMP, DIFF, MG, MORPH, URIC, CK, TROPHS, DIMER, GFR ####[address] [place], [place] [address] Monocyte, Abs Manual 0.5 10 3/mcL Normal 0.2-1.0 [facility] ([place]) Comment on above: Performed By: #### C BC, CMP, DIFF, MG, MORPH, URIC, CK, TROPHS, DIMER, GFR ####[address] [place], [place] [address] Neutrophil %, Manual 73.0 % Normal 37.0-80.0 [facility] ([place]) Comment on above: Performed By: #### C BC, CMP, DIFF, MG, MORPH, URIC, CK, TROPHS, DIMER, GFR ####[address] [place], [place] [address] Neutrophil, Abs Manual 7.1 10 3/mcL High 2.9-6.2 [facility] ([place]) Comment on above: Performed By: #### C BC, CMP, DIFF, MG, MORPH, URIC, CK, TROPHS, DIMER, GFR ####[address] [place], [place] [address] Nucleated RBC 0.0 /100 WBC Normal [facility] ([place]) Comment on above: Performed By: #### C BC, CMP, DIFF, MG, MORPH, URIC, CK, TROPHS, DIMER, GFR ####[address] [place], [place] [address] .Morphon 06-21-2023 Platelet Estimate Normal Normal [facility] ([place]) Comment on above: Performed By: #### C BC, CMP, DIFF, MG, MORPH, URIC, CK, TROPHS, DIMER, GFR ####Marissa [address] [place] [id number] CBCon 06-21-2023 Erythrocyte distribution width (RBC) [Ratio] 18.0 % High 11.5-14.5 [facility] ([place]) Comment on above: Performed By: #### C BC, CMP, DIFF, MG, MORPH, URIC, CK, TROPHS, DIMER, GFR ####[address] [place] [address] Hematocrit (Bld) [Volume fraction] 37.5 % Low 42.0-52.0 [facility] ([place]) Comment on above: Performed By: #### C BC, CMP, DIFF, MG, MORPH, URIC, CK, TROPHS, DIMER, GFR ####Mar[address] [place] [address] Hgb 12.7 G/dL Low 14.0-18.0 [facility] ([place]) Comment on above: Performed By: #### C BC, CMP, DIFF, MG, MORPH, URIC, CK, TROPHS, DIMER, GFR ####Marissa [address] [place] [address] MCH (RBC) [Entitic mass] 33.9 pg High 27.0-31.2 [facility] ([place]) Comment on above: Performed By: #### C BC, CMP, DIFF, MG, MORPH, URIC, CK, TROPHS, DIMER, GFR ####Marissa [address] [place] [address] MCHC 33.9 G/dL Normal 31.8-35.4 [facility] ([place]) Comment on above: Performed By: #### C BC, CMP, DIFF, MG, MORPH, URIC, CK, TROPHS, DIMER, GFR ####[address] [place], [place] [address] MCV (RBC) [Entitic vol] 100.1 fL High 80.0-94.0 A [facility] ([place]) Comment on above: Performed By: #### C BC, CMP, DIFF, MG, MORPH, URIC, CK, TROPHS, DIMER, GFR ####[address] [place], [place] [address] Platelet 228 10 3/mcL Normal 130-400 [facility] ([place]) Comment on above: Performed By: #### C BC, CMP, DIFF, MG, MORPH, URIC, CK, TROPHS, DIMER, GFR ####[address] [place], [place] [address] Platelet mean volume (Bld) [Entitic vol] 7.1 fL Low 7.4-10.4 [facility] ([place]) Comment on above: Performed By: #### C BC, CMP, DIFF, MG, MORPH, URIC, CK, TROPHS, DIMER, GFR ####[address] [place], [place] [address] RBC 3.74 10 6/mcL Low 4.04-6.13 [facility] ([place]) Comment on above: Performed By: #### C BC, CMP, DIFF, MG, MORPH, URIC, CK, TROPHS, DIMER, GFR ####[address] [place], [place] [address] WBC 9.8 10 3/mcL Normal 4.6-10.8 [facility] ([place]) Comment on above: Performed By: #### C BC, CMP, DIFF, MG, MORPH, URIC, CK, TROPHS, DIMER, GFR ####[address] [place], [place] [address] CKon 06-21-2023 CK [Catalytic activity/Vol] 50 U/L Normal 39-308 [facility] ([place]) Comment on above: Performed By: #### C BC, CMP, DIFF, MG, MORPH, URIC, CK, TROPHS, DIMER, GFR ####[address] [place], [place] [address] CMPon 06-21-2023 Albumin Level 2.7 G/dL Low 3.4-4.8 [facility] ([place]) Comment on above: Performed By: #### C BC, CMP, DIFF, MG, MORPH, URIC, CK, TROPHS, DIMER, GFR ####[address] [place], [place] [address] Albumin/Globulin [Mass ratio] 0.8 {ratio} Low 1.1-2.5 [facility] ([place]) Comment on above: Performed By: #### C BC, CMP, DIFF, MG, MORPH, URIC, CK, TROPHS, DIMER, GFR ####[address] [place], [place] [address] ALP [Catalytic activity/Vol] 95 U/L Normal 40-135 [facility] ([place]) Comment on above: Performed By: #### C BC, CMP, DIFF, MG, MORPH, URIC, CK, TROPHS, DIMER, GFR ####[address] [place], [place] [address] ALT [Catalytic activity/Vol] 59 U/L Normal 16-63 [facility] ([place]) Comment on above: Performed By: #### C BC, CMP, DIFF, MG, MORPH, URIC, CK, TROPHS, DIMER, GFR ####[address] [place], [place] [address] AST [Catalytic activity/Vol] 25 U/L Normal 10-40 [facility] ([place]) Comment on above: Performed By: #### C BC, CMP, DIFF, MG, MORPH, URIC, CK, TROPHS, DIMER, GFR ####Mar[address] [place], [place] [address] Bili Total 0.4 mg/dL Normal 0.2-1.0 [facility] ([place]) Comment on above: Result Comment: Use of this assay is not recommended for patients undergoing treatment with eltrombopag due to the potential for falsely elevated results. Performed By: #### C BC, CMP, DIFF, MG, MORPH, URIC, CK, TROPHS, DIMER, GFR ####[address] [place], [place] [address] BUN/Creatinine Ratio 29 ratio High 7-27 [facility] ([place]) Comment on above: Performed By: #### C BC, CMP, DIFF, MG, MORPH, URIC, CK, TROPHS, DIMER, GFR ####[address] [place], [place] [address] Calcium [Mass/Vol] 8.0 mg/dL Low 8.4-10.2 [facility] ([place]) Comment on above: Performed By: #### C BC, CMP, DIFF, MG, MORPH, URIC, CK, TROPHS, DIMER, GFR ####Mar[address] [place], [place] [address] Chloride [Moles/Vol] 106 mmol/L Normal 98-107 [facility] ([place]) Comment on above: Performed By: #### C BC, CMP, DIFF, MG, MORPH, URIC, CK, TROPHS, DIMER, GFR ####[address] [place], [place] [address] CO2 [Moles/Vol] 27 mmol/L Normal 23-31 [facility] ([place]) Comment on above: Performed By: #### C BC, CMP, DIFF, MG, MORPH, URIC, CK, TROPHS, DIMER, GFR ####[address] [place], [place] [address] Creatinine [Mass/Vol] 1.25 mg/dL Normal 0.70-1.30 [facility] ([place]) Comment on above: Performed By: #### C BC, CMP, DIFF, MG, MORPH, URIC, CK, TROPHS, DIMER, GFR ####[address] [place], [place] [address] Electrolyte Balance 12.0 mEq/L Normal 4.0-15.0 [facility] ([place]) Comment on above: Performed By: #### C BC, CMP, DIFF, MG, MORPH, URIC, CK, TROPHS, DIMER, GFR ####[address] [place], [place] [address] Globulin 3.2 G/dL Normal [facility] ([place]) Comment on above: Performed By: #### C BC, CMP, DIFF, MG, MORPH, URIC, CK, TROPHS, DIMER, GFR ####[address] [place], [place] [address] Glucose [Mass/Vol] 75 mg/dL Low 83-110 [facility] ([place]) Comment on above: Performed By: #### C BC, CMP, DIFF, MG, MORPH, URIC, CK, TROPHS, DIMER, GFR ####Marissa [address] [place], [place] [address] Potassium [Moles/Vol] 4.4 mmol/L Normal 3.5-5.1 [facility] ([place]) Comment on above: Performed By: #### C BC, CMP, DIFF, MG, MORPH, URIC, CK, TROPHS, DIMER, GFR ####Mar[address] [place], [place] [address] Sodium [Moles/Vol] 145 mmol/L Normal 136-145 [facility] ([place]) Comment on above: Performed By: #### C BC, CMP, DIFF, MG, MORPH, URIC, CK, TROPHS, DIMER, GFR ####Mar[address] [place], [place] [address] Total Protein 5.9 G/dL Low 6.4-8.2 [facility] ([place]) Comment on above: Performed By: #### C BC, CMP, DIFF, MG, MORPH, URIC, CK, TROPHS, DIMER, GFR ####[address] [place], [place] [address] Urea nitrogen [Mass/Vol] 36 mg/dL High 7-18 [facility] ([place]) Comment on above: Performed By: #### C BC, CMP, DIFF, MG, MORPH, URIC, CK, TROPHS, DIMER, GFR ####Mar[address] [place], [place] [address] DIMERon 06-21-2023 D-Dimer 789 ng/mL D-DU High 0-230 [facility] ([place]) Comment on above: Result Comment: Resu lts reported in D-DU ng/mL. Positive for D-dimer. A positive D-Dimer may occur in the following: DVT, PE, DIC, Trauma, Cancer, Sepsis, , Rheumatoid arthritis, Myocardial infarction and Cirrhosis. The presence of Rheumatoid Factor and HAMA (human mouse antibody) produces an overestimation of test results. The result of the D-Dimer test should be evaluated in the context of all the clinical and laboratory data available. In those instances where the laboratory result does not agree with the clinical evaluation, additional tests should be performed accordingly. If the D-Dimer result is used to exclude DVT or PE, the recommended cutoff value is less than 230 ng/mL. The D-Dimer result should not be used alone to rule in DVT/PE, but should be used in conjunction with a clinical pretest probability (PTP)assessment model to exclude venous thromboembolism (VTE) in outpatients suspected of deep venous thrombosis (DVT) and pulmonary embolism (PE). Performed By: #### C BC, CMP, DIFF, MG, MORPH, URIC, CK, TROPHS, DIMER, GFR ####Marissa [address] [place] [address] LABORATORYOrdered By: SYSTEM SYSTEM on 06-21-2023 Natriuretic peptide.B prohormone N-Terminal [Mass/Vol] 2073 pg/mL High 0 - 450 pg/mL AO ADM SS Comment on above: Interpretive Data: N T-proBNP results of less than 300 pg/mL effectively rules out acute congestive heart failure with 99% negative predictive value. Albumin BCP dye [Mass/Vol] 2.7 G/dL Low 3.4 - 4.8 G/dL AO ADM SS Albumin/Globulin [Mass ratio] 0.8 {ratio} Low 1.1 - 2.5 ratio AO ADM SS ALP [Catalytic activity/Vol] 95 U/L Normal 40 - 135 U/L AO ADM SS ALT With P-5'-P [Catalytic activity/Vol] 59 U/L Normal 16 - 63 U/L AO ADM SS AST With P-5'-P [Catalytic activity/Vol] 25 U/L Normal 10 - 40 U/L AO ADM SS Basophil %, Manual 0.0 % Normal 0.0 - 2.5 % AO Wo rkflow SS Basophil, Abs Manual 0.0 103/mcL Normal 0.0 - 0 .2 10^3/mcL AO Workflow SS Bilirubin [Mass/Vol] 0.4 mg/dL Normal 0.2 - 1 .0 mg/dL AO ADM SS Comment on above: Interpretive Data: U se of this assay is not recommended for patients undergoing treatment with eltrombopag due to the potential for falsely elevated results. Calcium [Mass/Vol] 8.0 mg/dL Low 8.4 - 10. 2 mg/dL AO ADM SS Chloride [Moles/Vol] 106 mmol/L Normal 98 - 10 7 mmol/L AO ADM SS CK [Catalytic activity/Vol] 50 U/L Normal 39 - 308 U/L AO ADM SS CO2 [Moles/Vol] 27 mmol/L Normal 23 - 31 mmol/L AO ADM SS Creatinine [Mass/Vol] 1.25 mg/dL Normal 0.70 - 1.30 mg/dL AO ADM SS Electrolyte Balance 12.0 mEq/L Normal 4.0 - 15 .0 mEq/L AO ADM SS Eosinophil %, Manual 3.0 % Normal 0.0 - 7.0 % AO Workflow SS Eosinophils (Bld) [#/Vol] 0.3 103/mcL Normal 0.0 - 0.4 10^3/mcL AO Workflow SS Erythrocyte distribution width (RBC) [Ratio] 18.0 % High 11.5 - 14.5 % AO Workflow SS GFR/1.73 sq M.predicted among blacks MDRD (S/P/Bld) [Vol rate/Area] 68 ml/min/1.73sqm Invalid Interpretation Code AO Chemistry S Comment on above: Interpretive Data: GFR Population mean for , Non- Americans Ages 20-29 = 116 mL/min/1.73 sq.m. Ages 30-39 = 107 mL/min/1.73 sq.m. Ages 40-49 = 99 mL/min/1.73 sq.m. Ages 50-59 = 93 mL/min/1.73 sq.m. Ages 60-69 = 85 mL/min/1.73 sq.m. Ages 70+ = 75 mL/min/1.73 sq.m. Chronic Kidney Disease: Less than 60 mL/min/1.73 square meters End Stage Renal Disease: Less than 15 mL/min/1.73 square meters GFR/1.73 sq M.predicted among non-blacks MDRD (S/P/Bld) [Vol rate/Area] 56 ml/min/1.73sqm Invalid Interpretation Code AO Chemistry S Comment on above: Interpretive Data: GFR Population mean for , Non- Americans Ages 20-29 = 116 mL/min/1.73 sq.m. Ages 30-39 = 107 mL/min/1.73 sq.m. Ages 40-49 = 99 mL/min/1.73 sq.m. Ages 50-59 = 93 mL/min/1.73 sq.m. Ages 60-69 = 85 mL/min/1.73 sq.m. Ages 70+ = 75 mL/min/1.73 sq.m. Chronic Kidney Disease: Less than 60 mL/min/1.73 square meters End Stage Renal Disease: Less than 15 mL/min/1.73 square meters Globulin 3.2 G/dL Invalid Interpretation Code AO ADM SS Glucose [Mass/Vol] 75 mg/dL Low 83 - 110 mg/dL AO ADM SS Hematocrit (Bld) [Volume fraction] 37.5 % Low 42.0 - 52.0 % AO Workflow SS Hemoglobin (Bld) [Mass/Vol] 12.7 G/dL Low 14.0 - 18.0 G/dL AO Workflow SS Lymphocyte %, Manual 19.0 % Normal 10.0 - 50.0 % AO Workflow SS Lymphocyte, Abs Manual 1.9 103/mcL Normal 0.8 - 3.9 10^3/mcL AO Workflow SS Magnesium [Mass/Vol] 1.7 mg/dL Low 1.8 - 2 .4 mg/dL AO ADM SS MCH (RBC) [Entitic mass] 33.9 pg High 27. 0 - 31.2 pg AO Workflow SS MCHC 33.9 G/dL Normal 31.8 - 35.4 G/dL AO Workflow SS MCV (RBC) [Entitic vol] 100.1 fL High 80.0 - 94.0 fL AO Workflow SS Monocyte %, Manual 5.0 % Normal 1.7 - 13.0 % AO W orkflow SS Monocyte, Abs Manual 0.5 103/mcL Normal 0.2 - 1 .0 10^3/mcL AO Workflow SS Neutrophil %, Manual 73.0 % Normal 37.0 - 80.0 % AO Workflow SS Neutrophil, Abs Manual 7.1 103/mcL High 2.9 - 6.2 10^3/mcL AO Workflow SS Nucleated RBC 0.0 /100 WBC Invalid Interpretation Code AO Workflow SS Platelet Estimate Normal *NA* (06/21/23 2:15 PM) Invalid Interpretation Code AO Workflow SS Platelet mean volume (Bld) [Entitic vol] 7.1 fL Low 7.4 - 10.4 fL AO Workflow SS Platelets (Bld) [#/Vol] 228 103/mcL Normal 130 - 400 10^3/mcL AO Workflow SS Potassium [Moles/Vol] 4.4 mmol/L Normal 3.5 - 5.1 mmol/L AO ADM SS Protein [Mass/Vol] 5.9 G/dL Low 6.4 - 8.2 G/dL AO ADM SS RBC (Bld) [#/Vol] 3.74 106/mcL Low 4.04 - 6.1 3 10^6/mcL AO Workflow SS Sodium [Moles/Vol] 145 mmol/L Normal 136 - 145 mmol/L AO ADM SS Troponin I.cardiac DL <= 0.01 ng/mL [Mass/Vol] 13 ng/L Normal 0 - 76 ng/L AO ADM SS Comment on above: Interpretive Data: H igh Sensitive Troponin I Reference Ranges: Female: 0-51 ng/L Male: 0-76 ng/L Testing performed on [employer] using a homogeneous sandwich chemiluminescent immunoassay based on [employer] technology. Urea nitrogen [Mass/Vol] 36 mg/dL High 7 - 18 mg/d L AO ADM SS Urea nitrogen/Creatinine [Mass ratio] 29 ratio High 7 - 27 ratio AO ADM SS Uric Acid Lvl 4.5 mg/dL Normal 3.5 - 7.2 mg/dL AO ADM SS WBC (Bld) [#/Vol] 9.8 103/mcL Normal 4.6 - 10.8 10^3/mcL AO Workflow SS LABORATORYOrdered By: Corazon Hahn on 06-21-2023 Fibrin D-dimer DDU (PPP) [Mass/Vol] 789 ng/mL D-DU High 0 - 230 ng/mL D-DU AO [facility] SS Comment on above: Result Comment: Resu lts reported in D-DU ng/mL. Positive for D-dimer. A positive D-Dimer may occur in the following: DVT, PE, DIC, Trauma, Cancer, Sepsis, , Rheumatoid arthritis, Myocardial infarction and Cirrhosis. The presence of Rheumatoid Factor and HAMA (human mouse antibody) produces an overestimation of test results. Interpretive Data: T he result of the D-Dimer test should be evaluated in the context of all the clinical and laboratory data available. In those instances where the laboratory result does not agree with the clinical evaluation, additional tests should be performed accordingly. If the D-Dimer result is used to exclude DVT or PE, the recommended cutoff value is less than 230 ng/mL. The D-Dimer result should not be used alone to rule in DVT/PE, but should be used in conjunction with a clinical pretest probability (PTP)assessment model to exclude venous thromboembolism (VTE) in outpatients suspected of deep venous thrombosis (DVT) and pulmonary embolism (PE). MGon 06-21-2023 Magnesium [Mass/Vol] 1.7 mg/dL Low 1.8-2.4 [facility] ([place]) Comment on above: Performed By: #### C BC, CMP, DIFF, MG, MORPH, URIC, CK, TROPHS, DIMER, GFR ####[address] [address] PBNPon 06-21-2023 Natriuretic peptide B (Bld) [Mass/Vol] 2073 pg/mL High 0-450 [facility] ([place]) Comment on above: Result Comment: NT-p roBNP results of less than 300 pg/mL effectively rules out acute congestive heart failure with 99% negative predictive value. Performed By: #### P BNP #### [address] [address] TROPHSon 06-21-2023 High Sensitivity Troponin I 13 ng/L Normal 0-76 [facility] ([place]) Comment on above: Result Comment: High Sensitive Troponin I Reference Ranges: Female: 0-51 ng/L Male: 0-76 ng/L Testing performed on [employer] using a homogeneous sandwich chemiluminescent immunoassay based on [employer] technology. Performed By: #### C BC, CMP, DIFF, MG, MORPH, URIC, CK, TROPHS, DIMER, GFR ####[place] [address] URICon 06-21-2023 Uric Acid Lvl 4.5 mg/dL Normal 3.5-7.2 [facility] ([place]) Comment on above: Performed By: #### C BC, CMP, DIFF, MG, MORPH, URIC, CK, TROPHS, DIMER, GFR ####[address] [place], [place] [address] Absolute lymphocyte countOrd ered By: Heath Mitchell on 05-03-2023 Lymphocytes Auto (Unsp spec) [#/Vol] 0.98 10*3/uL 0.83-4.51 [facility] Automated lymphocyte count a s percentage of total leukocytesOrdered By: sandra Mitchell on 05-03-2023 Lymphocytes/100 WBC Auto (Unsp spec) 17.7 % 19-41 [facility] Basophil percentageOrdered B y: Brooklynsandra Mitchell on 05-03-2023 Basophils/100 WBC (Bld) 0.9 % 0-1 [facility] Chloride [Moles/Vol] 110 mmol/L 98-107 [facility] Eosinophils/100 WBC (Bld) 3.4 % 0-5 [facility] Glucose [Mass/Vol] 94 mg/dL 74-106 [facility] Hemoglobin (Bld) [Mass/Vol] 9.7 g/dL 13.0-16.5 [facility] Monocytes/100 WBC (Bld) 14.6 % 0-10 [facility] Neutrophils (Bld) [#/Vol] 3.5 10*3/uL 2.0-7.7 [facility] Neutrophils/100 WBC (Bld) 62.5 % 47-70 [facility] Potassium [Moles/Vol] 4.3 mmol/L 3.5-5.1 [facility] Sodium [Moles/Vol] 142 mmol/L 136-145 [facility] WBC (Bld) [#/Vol] 5.6 10*3/uL 4.4-11.0 [facility] Determination of erythrocyte mean corpuscular volume (MCV)Ordered By: sandra Mitchell on 05-03-2023 MCV (RBC) [Entitic vol] 106.6 fL 80-94 [facility] Erythrocyte distribution wid th ratioOrdered By: johnnakemahjoi Mitchell on 05-03-2023 Erythrocyte distribution width (RBC) [Ratio] 15.2 % 11.6-14.6 [facility] Erythrocyte distribution wid th standard deviationOrdered By: johnnakemahjoi Guzmanmili on 05-03-2023 Erythrocyte distribution width (RBC) [Entitic vol] 58.5 fL 35.1-43.9 [facility] Hematocrit Auto (Bld) [Volum e fraction]Ordered By: Heath Mitchell on 05-03-2023 Hematocrit (Bld) [Volume fraction] 30.9 % 40-54 [facility] Immature granulocytes/100 WB C Auto (Bld)Ordered By: Heath Mitchell on 05-03-2023 Immature granulocytes/100 WBC (Bld) 0.900 % 0.0-0.9 [facility] Comment on above: IG% - Immature Granu locytes (promyelocytes, myelocytes and metamyelocytes) > 1% indicates that a LEFT SHIFT is Present. Laboratory - Chemistry and C hemistry - challengeOrdered By: Heath Mitchell on 05-03-2023 CO2 [Moles/Vol] 25.0 mmol/L 21.0-32.0 [facility] Urea nitrogen/Creatinine [Mass ratio] 22.3 mg/mg 10-20 [facility] Laboratory - Hematology and Cell countsOrdered By: Heath Mitchell on 05-03-2023 MCH (RBC) [Entitic mass] 33.4 pg 27.0-32.0 [facility] MCHC (RBC) [Mass/Vol] 31.4 g/dL 32-36 [facility] Nucleated RBC/100 WBC (Bld) [Ratio] 0.4 % 0-5 [facility] Platelet mean volume (Bld) [Entitic vol] 9.1 fL 6.2-12.0 [facility] Platelets (Bld) [#/Vol] 339 10*3/uL 150-450 [facility] No Panel InformationOrdered By: Heath Mitchell on 05-03-2023 Estimated GFR (MDRD) Amer 75 mL/min >60 [facility] Comment on above: GFR Calc Estimated GFR (MDRD) Non-Af Amer 62 mL/min >60 [facility] Comment on above: Non- GFR Calc RBC Auto (Bld) [#/Vol]Ordere d By: Heath Mitchell on 05-03-2023 RBC (Bld) [#/Vol] 2.90 10*6/uL 4.6-6.2 [facility] Serum or plasma calcium ender urement (mass/volume)Ordered By: Heath Mitchell on 05-03-2023 Calcium [Mass/Vol] 8.9 mg/dL 8.5-10.1 [facility] Serum or plasma creatinine m easurement (mass/volume)Ordered By: Heath Mitchell on 05-03-2023 Creatinine [Mass/Vol] 1.21 mg/dL 0.70-1.30 [facility] Comment on above: The validity of the calculated GFR & GFRAA in patients over 70 years has not been determined. Clinical correlation is essential. Serum or plasma urea nitroge n measurement (mass/volume)Ordered By: Heath Mitchell on 05-03-2023 Urea nitrogen [Mass/Vol] 27 mg/dL 7-18 [facility] Thin prep Papanicolaou smear with manual screeningOrdered By: sandra Mitchell on 05-03-2023 Thin prep Papanicolaou smear with manual screening 7 - [facility] Absolute lymphocyte countOrd ered By: sandra Mitchell on 04-26-2023 Lymphocytes Auto (Unsp spec) [#/Vol] 0.78 10*3/uL 0.83-4.51 [facility] Automated lymphocyte count a s percentage of total leukocytesOrdered By: Heath Mitchell on 04-26-2023 Lymphocytes/100 WBC Auto (Unsp spec) 13.6 % 19-41 [facility] Basophil percentageOrdered B y: Heath Mitchell on 04-26-2023 Basophils/100 WBC (Bld) 0.5 % 0-1 [facility] Chloride [Moles/Vol] 113 mmol/L 98-107 [facility] Eosinophils/100 WBC (Bld) 1.6 % 0-5 [facility] Glucose [Mass/Vol] 92 mg/dL 74-106 [facility] Hemoglobin (Bld) [Mass/Vol] 8.9 g/dL 13.0-16.5 [facility] Monocytes/100 WBC (Bld) 10.5 % 0-10 [facility] Neutrophils (Bld) [#/Vol] 4.2 10*3/uL 2.0-7.7 [facility] Neutrophils/100 WBC (Bld) 72.9 % 47-70 [facility] Potassium [Moles/Vol] 4.1 mmol/L 3.5-5.1 [facility] Sodium [Moles/Vol] 141 mmol/L 136-145 [facility] WBC (Bld) [#/Vol] 5.7 10*3/uL 4.4-11.0 [facility] Determination of erythrocyte mean corpuscular volume (MCV)Ordered By: Heath Mitchell on 04-26-2023 MCV (RBC) [Entitic vol] 103.7 fL 80-94 [facility] Erythrocyte distribution wid th ratioOrdered By: Carakemahjoi Mitchell on 04-26-2023 Erythrocyte distribution width (RBC) [Ratio] 15.0 % 11.6-14.6 [facility] Erythrocyte distribution wid th standard deviationOrdered By: Heath Mitchell on 04-26-2023 Erythrocyte distribution width (RBC) [Entitic vol] 55.8 fL 35.1-43.9 [facility] Hematocrit Auto (Bld) [Volum e fraction]Ordered By: Heath Mitchell on 04-26-2023 Hematocrit (Bld) [Volume fraction] 27.8 % 40-54 [facility] Immature granulocytes/100 WB C Auto (Bld)Ordered By: [facility]ier[facility]i Mitchell on 04-26-2023 Immature granulocytes/100 WBC (Bld) 0.900 % 0.0-0.9 [facility] Comment on above: IG% - Immature Granu locytes (promyelocytes, myelocytes and metamyelocytes) > 1% indicates that a LEFT SHIFT is Present. Laboratory - Chemistry and C hemistry - challengeOrdered By: Heath Mitchell on 04-26-2023 CO2 [Moles/Vol] 25.0 mmol/L 21.0-32.0 [facility] Urea nitrogen/Creatinine [Mass ratio] 24.5 mg/mg 10-20 [facility] Laboratory - Hematology and Cell countsOrdered By: Heath Mitchell on 04-26-2023 MCH (RBC) [Entitic mass] 33.2 pg 27.0-32.0 [facility] MCHC (RBC) [Mass/Vol] 32.0 g/dL 32-36 [facility] Nucleated RBC/100 WBC (Bld) [Ratio] 0 % 0-5 [facility] Platelet mean volume (Bld) [Entitic vol] 9.5 fL 6.2-12.0 [facility] Platelets (Bld) [#/Vol] 278 10*3/uL 150-450 [facility] No Panel InformationOrdered By: Heath Mitchell on 04-26-2023 Estimated GFR (MDRD) Amer 87 mL/min >60 [facility] Comment on above: GFR Calc Estimated GFR (MDRD) Non-Af Amer 72 mL/min >60 [facility] Comment on above: Non- GFR Calc RBC Auto (Bld) [#/Vol]Ordere d By: Heath Mitchell on 04-26-2023 RBC (Bld) [#/Vol] 2.68 10*6/uL 4.6-6.2 [facility] Serum or plasma calcium ender urement (mass/volume)Ordered By: Heath Mitchell on 04-26-2023 Calcium [Mass/Vol] 8.8 mg/dL 8.5-10.1 [facility] Serum or plasma creatinine m easurement (mass/volume)Ordered By: Heath Mitchell on 04-26-2023 Creatinine [Mass/Vol] 1.06 mg/dL 0.70-1.30 [facility] Comment on above: The validity of the calculated GFR & GFRAA in patients over 70 years has not been determined. Clinical correlation is essential. Serum or plasma urea nitroge n measurement (mass/volume)Ordered By: Heath Mitchell on 04-26-2023 Urea nitrogen [Mass/Vol] 26 mg/dL 7-18 [facility] Thin prep Papanicolaou smear with manual screeningOrdered By: Heath Mitchell on 04-26-2023 Thin prep Papanicolaou smear with manual screening 3 5-15 [facility] Absolute lymphocyte countOrd ered By: Heath Mitchell on 04-20-2023 Lymphocytes Auto (Unsp spec) [#/Vol] 0.76 10*3/uL 0.83-4.51 [facility] Automated lymphocyte count a s percentage of total leukocytesOrdered By: Blakejoi Guzmanchica on 04-20-2023 Lymphocytes/100 WBC Auto (Unsp spec) 11.0 % 19-41 [facility] Basophil percentageOrdered B y: Heath Thomaschica on 04-20-2023 Basophils/100 WBC (Bld) 0.3 % 0-1 [facility] Bilirubin [Mass/Vol] 2.00 mg/dL 0.20-1.00 [facility] Comment on above: For patients on eltr ombopag therapy, use of Dimension [place] TBIL is not recommended. Chloride [Moles/Vol] 114 mmol/L 98-107 [facility] Eosinophils/100 WBC (Bld) 2.2 % 0-5 [facility] Glucose [Mass/Vol] 100 mg/dL 74-106 [facility] Comment on above: Fasting Glucose resu lt from 100 to 125 mg/dL suggests IMPAIRED HOMEOSTASIS per A.D.A. criteria. Hemoglobin (Bld) [Mass/Vol] 8.5 g/dL 13.0-16.5 [facility] Monocytes/100 WBC (Bld) 8.7 % 0-10 [facility] Neutrophils (Bld) [#/Vol] 5.1 10*3/uL 2.0-7.7 [facility] Neutrophils/100 WBC (Bld) 72.9 % 47-70 [facility] Potassium [Moles/Vol] 3.7 mmol/L 3.5-5.1 [facility] Protein [Mass/Vol] 6.3 g/dL 6.4-8.2 [facility] Sodium [Moles/Vol] 144 mmol/L 136-145 [facility] WBC (Bld) [#/Vol] 6.9 10*3/uL 4.4-11.0 [facility] Determination of erythrocyte mean corpuscular volume (MCV)Ordered By: Heath Mitchell on 04-20-2023 MCV (RBC) [Entitic vol] 105.9 fL 80-94 [facility] Erythrocyte distribution wid th ratioOrdered By: [facility] Paula on 04-20-2023 Erythrocyte distribution width (RBC) [Ratio] 14.6 % 11.6-14.6 [facility] Erythrocyte distribution wid th standard deviationOrdered By: [facility] Thomasmili on 04-20-2023 Erythrocyte distribution width (RBC) [Entitic vol] 55.2 fL 35.1-43.9 [facility] Hematocrit Auto (Bld) [Volum e fraction]Ordered By: [facility] Paula on 04-20-2023 Hematocrit (Bld) [Volume fraction] 26.8 % 40-54 [facility] Immature granulocytes/100 WB C Auto (Bld)Ordered By: [facility] Thomasmili on 04-20-2023 Immature granulocytes/100 WBC (Bld) 4.900 % 0.0-0.9 [facility] Comment on above: IG% - Immature Granu locytes (promyelocytes, myelocytes and metamyelocytes) > 1% indicates that a LEFT SHIFT is Present. Laboratory - Chemistry and C hemistry - challengeOrdered By: [facility] Thomasmili on 04-20-2023 Albumin/Globulin [Mass ratio] 0.7 {ratio} 0.9-2.4 [facility] ALP [Catalytic activity/Vol] 77 U/L 45-117 [facility] ALT [Catalytic activity/Vol] 83 U/L 16-61 [facility] CO2 [Moles/Vol] 27.0 mmol/L 21.0-32.0 [facility] Globulin (S) [Mass/Vol] 3.8 g/dL 2.2-4.2 [facility] Urea nitrogen/Creatinine [Mass ratio] 19.6 mg/mg 10-20 [facility] - Hematology and Cell countsOrdered By: [facility] Thomasmili on 04-20-2023 MCH (RBC) [Entitic mass] 33.6 pg 27.0-32.0 [facility] MCHC (RBC) [Mass/Vol] 31.7 g/dL 32-36 [facility] Nucleated RBC/100 WBC (Bld) [Ratio] 1.4 % 0-5 [facility] Platelets (Bld) [#/Vol] 204 10*3/uL 150-450 [facility] No Panel InformationOrdered By: Heath Mitchell on 04-20-2023 Estimated GFR (MDRD) Amer 82 mL/min >60 [facility] Comment on above: GFR Calc Estimated GFR (MDRD) Non-Af Amer 67 mL/min >60 [facility] Comment on above: Non- GFR Calc Platelet mean volume Roderick-Ec ker (Bld) [Entitic vol]Ordered By: Heath Mitchell on 04-20-2023 Platelet mean volume (Bld) [Entitic vol] 9.9 fL 6.2-12.0 [facility] RBC Auto (Bld) [#/Vol]Ordere d By: Heath Mitchell on 04-20-2023 RBC (Bld) [#/Vol] 2.53 10*6/uL 4.6-6.2 [facility] Serum or plasma calcium ender urement (mass/volume)Ordered By: Heath Mitchell on 04-20-2023 Calcium [Mass/Vol] 8.5 mg/dL 8.5-10.1 [facility] Serum or plasma creatinine m easurement (mass/volume)Ordered By: Heath Mitchell on 04-20-2023 Creatinine [Mass/Vol] 1.12 mg/dL 0.70-1.30 [facility] Comment on above: The validity of the calculated GFR & GFRAA in patients over 70 years has not been determined. Clinical correlation is essential. Serum or plasma urea nitroge n measurement (mass/volume)Ordered By: Heath Mitchell on 04-20-2023 Urea nitrogen [Mass/Vol] 22 mg/dL 7-18 [facility] Thin prep Papanicolaou smear with manual screeningOrdered By: Heath Mitchell on 04-20-2023 Thin prep Papanicolaou smear with manual screening 2.5 g/dL 3.2-5.0 [facility] Thin prep Papanicolaou smear with manual screening 84 U/L 15-37 [facility] Thin prep Papanicolaou smear with manual screening 3 5-15 [facility] COVID-19 virus antigen assay Ordered By: Jesse Slade on 04-18-2023 SARS-CoV-2 (COVID-19) Ag IA.rapid Ql (Resp) [facility] SARS-CoV-2 (COVID-19) Ag IA.rapid Ql (Resp) [facility] Absolute lymphocyte countOrd ered By: Jesse Slade on 04-17-2023 Lymphocytes Auto (Unsp spec) [#/Vol] 0.69 10*3/uL 0.83-4.51 [facility] Automated lymphocyte count a s percentage of total leukocytesOrdered By: Jesse Slade on 04-17-2023 Lymphocytes/100 WBC Auto (Unsp spec) 15.3 % 19-41 [facility] Basophil percentageOrdered B y: Jesse Slade on 04-17-2023 Basophils/100 WBC (Bld) 0.2 % 0-1 [facility] Chloride [Moles/Vol] 119 mmol/L 98-107 [facility] Eosinophils/100 WBC (Bld) 0.9 % 0-5 [facility] Glucose [Mass/Vol] 106 mg/dL 74-106 [facility] Comment on above: Fasting Glucose resu lt from 100 to 125 mg/dL suggests IMPAIRED HOMEOSTASIS per A.D.A. criteria. Hemoglobin (Bld) [Mass/Vol] 8.1 g/dL 13.0-16.5 [facility] Monocytes/100 WBC (Bld) 9.8 % 0-10 [facility] Neutrophils (Bld) [#/Vol] 3.2 10*3/uL 2.0-7.7 [facility] Neutrophils/100 WBC (Bld) 71.8 % 47-70 [facility] Potassium [Moles/Vol] 3.9 mmol/L 3.5-5.1 [facility] Sodium [Moles/Vol] 145 mmol/L 136-145 [facility] WBC (Bld) [#/Vol] 4.5 10*3/uL 4.4-11.0 [facility] Determination of erythrocyte mean corpuscular volume (MCV)Ordered By: Jesse Slade on 04-17-2023 MCV (RBC) [Entitic vol] 105.8 fL 80-94 [facility] Erythrocyte distribution wid th ratioOrdered By: Jesse Slade on 04-17-2023 Erythrocyte distribution width (RBC) [Ratio] 14.5 % 11.6-14.6 [facility] Erythrocyte distribution wid th standard deviationOrdered By: Jesse Slade on 04-17-2023 Erythrocyte distribution width (RBC) [Entitic vol] 56.6 fL 35.1-43.9 [facility] Hematocrit Auto (Bld) [Volum e fraction]Ordered By: Jesse Slade on 04-17-2023 Hematocrit (Bld) [Volume fraction] 25.4 % 40-54 [facility] Immature granulocytes/100 WB C Auto (Bld)Ordered By: Jesse Slade on 04-17-2023 Immature granulocytes/100 WBC (Bld) 2.000 % 0.0-0.9 [facility] Comment on above: IG% - Immature Granu locytes (promyelocytes, myelocytes and metamyelocytes) > 1% indicates that a LEFT SHIFT is Present. Laboratory - Chemistry and C hemistry - challengeOrdered By: Jesse Slade on 04-17-2023 CO2 [Moles/Vol] 24.0 mmol/L 21.0-32.0 [facility] Urea nitrogen/Creatinine [Mass ratio] 26.0 mg/mg 10-20 [facility] - Hematology and Cell countsOrdered By: Jesse Slade on 04-17-2023 MCH (RBC) [Entitic mass] 33.8 pg 27.0-32.0 [facility] MCHC (RBC) [Mass/Vol] 31.9 g/dL 32-36 [facility] Nucleated RBC/100 WBC (Bld) [Ratio] 0.7 % 0-5 [facility] Platelets (Bld) [#/Vol] 102 10*3/uL 150-450 [facility] No Panel InformationOrdered By: Jesse Slade on 04-17-2023 Estimated Creatinine Clearance Calc 53.79 ml/min [facility] Estimated GFR (MDRD) Amer 73 mL/min >60 [facility] Comment on above: GFR Calc Estimated GFR (MDRD) Non-Af Amer 60 mL/min >60 [facility] Comment on above: Non- GFR Calc Platelet mean volume Roderick-Ec ker (Bld) [Entitic vol]Ordered By: Jesse Slade on 04-17-2023 Platelet mean volume (Bld) [Entitic vol] 10.4 fL 6.2-12.0 [facility] RBC Auto (Bld) [#/Vol]Ordere d By: Jesse Slade on 04-17-2023 RBC (Bld) [#/Vol] 2.40 10*6/uL 4.6-6.2 [facility] Serum or plasma calcium ender urement (mass/volume)Ordered By: Jesse Slade on 04-17-2023 Calcium [Mass/Vol] 8.1 mg/dL 8.5-10.1 [facility] Serum or plasma creatinine m easurement (mass/volume)Ordered By: Jesse Slade on 04-17-2023 Creatinine [Mass/Vol] 1.23 mg/dL 0.70-1.30 [facility] Comment on above: The validity of the calculated GFR & GFRAA in patients over 70 years has not been determined. Clinical correlation is essential. Serum or plasma urea nitroge n measurement (mass/volume)Ordered By: Jesse Slade on 04-17-2023 Urea nitrogen [Mass/Vol] 32 mg/dL 7-18 [facility] Thin prep Papanicolaou smear with manual screeningOrdered By: Jesse Slade on 04-17-2023 Thin prep Papanicolaou smear with manual screening 2 5-15 [facility] Basophil percentageOrdered B y: William Padilla on 04-16-2023 Basophil percentage 25-50 SEEN /hpf 0-5 [facility] Basophil percentageOrdered B y: Tesha Layne on 04-16-2023 Bilirubin [Mass/Vol] 0.50 mg/dL 0.20-1.00 [facility] Comment on above: For patients on eltr ombopag therapy, use of Dimension [place] TBIL is not recommended. Protein [Mass/Vol] 5.4 g/dL 6.4-8.2 [facility] Bilirubin Test strip Ql (U)O rdered By: William Padilla on 04-16-2023 Bilirubin Ql (U) Negative Negative [facility] Ketones Test strip Ql (U)Ord ered By: William Padilla on 04-16-2023 Ketones Ql (U) Negative Negative [facility] Laboratory - Chemistry and C hemistry - challengeOrdered By: Tesha Layne on 04-16-2023 Albumin/Globulin [Mass ratio] 0.6 {ratio} 0.9-2.4 [facility] ALP [Catalytic activity/Vol] 62 U/L 45-117 [facility] ALT [Catalytic activity/Vol] 115 U/L 16-61 [facility] CK [Catalytic activity/Vol] 3011 U/L 39-308 [facility] Globulin (S) [Mass/Vol] 3.3 g/dL 2.2-4.2 [facility] Mucus LM Ql (Urine sed)Order ed By: William Padilla on 04-16-2023 Mucus Ql (Urine sed) 0 SEEN /hpf [facility] Nitrite Test strip Ql (U)Ord ered By: William Padilla on 04-16-2023 Nitrite Ql (U) Negative Negative [facility] No Panel InformationOrdered By: William Padilla on 04-16-2023 Urine RBC 10-25 SEEN /hpf 0-5 [facility] Protein Test strip Ql (U)Ord ered By: William Padilla on 04-16-2023 Protein Ql (U) 30 mg/dl Negative [facility] Squamous epithelial cells de tection in urine sediment by light microscopyOrdered By: William Padilla on 04-16-2023 Epithelial cells.squamous LM Ql (Urine sed) 0 SEEN /hpf 0-5 [facility] Thin prep Papanicolaou smear with manual screeningOrdered By: Tesha Layne on 04-16-2023 Thin prep Papanicolaou smear with manual screening 2.1 g/dL 3.2-5.0 [facility] Thin prep Papanicolaou smear with manual screening 227 U/L 15-37 [facility] Urine blood detectionOrdered By: William Padilla on 04-16-2023 RBC Ql (U) 150 /ul Negative [facility] Urine clarityOrdered By: Giovanna Padilla on 04-16-2023 Clarity (U) Clear Clear [facility] Urine color determinationOrd ered By: William Padilla on 04-16-2023 Color (U) Yellow Yellow [facility] Urine glucose detectionOrder ed By: William Padilla on 04-16-2023 Glucose Ql (U) Normal mg/dl Normal [facility] Urine leukocyte esterase det ection by dipstickOrdered By: William Padilla on 04-16-2023 Leukocyte esterase Test strip Ql (U) 500 /ul Negative [facility] Urine pHOrdered By: William evansus on 04-16-2023 pH (U) 6.0 [pH] 5.0 - 8.0 [facility] Urine sediment bacteria coun t by microscopy (number/high power field)Ordered By: William Padilla on 04-16-2023 Bacteria LM.HPF (Urine sed) [#/Area] 1 /[HPF] None Seen [facility] Urine sediment yeast count b y microscopy (number/high powered field)Ordered By: William Padilla on 04-16-2023 Yeast LM.HPF (Urine sed) [#/Area] 2 /[HPF] None Seen [facility] Urine specific gravity measu rementOrdered By: William Padilla on 04-16-2023 Specific gravity (U) [Rel density] 1.010 1.002-1.030 [facility] Urine urobilinogen measureme ntOrdered By: William Padilla on 04-16-2023 Urobilinogen Ql (U) Normal mg/dl Normal [facility] Blood manual differential co mment interpretation (narrative result)Ordered By: Tesha Layne on 04-14-2023 Manual differential comment Cesar (Bld) [Interp] SCANNED [facility] Activated partial thrombopla stin time (aPTT) in platelet poor plasma by coagulation aOrdered By: Tesha Layne on 04-13-2023 aPTT Coag (PPP) [Time] 105.1 s 24.1-36.2 [facility] Comment on above: CRITICAL VALUE VERIF IED. CALLED TO DARRYN FERREIRA (U)04/13/23 [id number] Tadeo HaRESULTS READ BACK BY SAME. Absolute lymphocyte countOrd ered By: William Padilla on 04-12-2023 Lymphocytes Auto (Unsp spec) [#/Vol] 0.54 10*3/uL 0.83-4.51 [facility] Automated lymphocyte count a s percentage of total leukocytesOrdered By: William Padilla on 04-12-2023 Lymphocytes/100 WBC Auto (Unsp spec) 6.2 % 19-41 [facility] Basophil percentageOrdered B y: William Padilla on 04-12-2023 Lactate [Moles/Vol] 1.1 mmol/L 0.4-2.0 [facility] Basophils/100 WBC (Bld) 0.1 % 0-1 [facility] Bilirubin [Mass/Vol] 0.70 mg/dL 0.20-1.00 [facility] Comment on above: For patients on eltr ombopag therapy, use of Dimension [place] TBIL is not recommended. Chloride [Moles/Vol] 112 mmol/L 98-107 [facility] Eosinophils/100 WBC (Bld) 0.0 % 0-5 [facility] Glucose [Mass/Vol] 93 mg/dL 74-106 [facility] Hemoglobin (Bld) [Mass/Vol] 13.6 g/dL 13.0-16.5 [facility] Lactate [Moles/Vol] 2.3 mmol/L 0.4-2.0 [facility] Comment on above: Critical Result(s) C alled at: 11:50:34 04/12/2023 by: Halie Rey to [facility]. Results read back by same. Monocytes/100 WBC (Bld) 9.4 % 0-10 [facility] Neutrophils (Bld) [#/Vol] 7.4 10*3/uL 2.0-7.7 [facility] Neutrophils/100 WBC (Bld) 84.0 % 47-70 [facility] Potassium [Moles/Vol] 4.0 mmol/L 3.5-5.1 [facility] Protein [Mass/Vol] 7.3 g/dL 6.4-8.2 [facility] Sodium [Moles/Vol] 141 mmol/L 136-145 [facility] WBC (Bld) [#/Vol] 8.8 10*3/uL 4.4-11.0 [facility] Basophil percentageOrdered B y: Tesha Layne on 04-12-2023 Cholesterol [Mass/Vol] 103 mg/dL <200 [facility] Comment on above: <200 mg/dL Desirable 200-240 mg/dL Borderline >240 mg/dL High Risk Triglyceride [Mass/Vol] 100 mg/dL <199 [facility] Comment on above: The drugs N-Acetylcy steine and Metamizole may falsely depress this assay.Serum Triglycerides Reference Interval Normal <150 mg/dL Borderline high 150 - 199 mg/dL High 200 - 499 mg/dL Very High > or = 500 mg/dL Blood manual differential co mment interpretation (narrative result)Ordered By: William Padilla on 04-12-2023 Manual differential comment Cesar (Bld) [Interp] COMMENT [facility] Comment on above: LYMPHOPENIA. Determination of erythrocyte mean corpuscular volume (MCV)Ordered By: William Padilla on 04-12-2023 MCV (RBC) [Entitic vol] 100.7 fL 80-94 [facility] Erythrocyte distribution wid th ratioOrdered By: William Padilla on 04-12-2023 Erythrocyte distribution width (RBC) [Ratio] 14.1 % 11.6-14.6 [facility] Erythrocyte distribution wid th standard deviationOrdered By: William Padilla on 04-12-2023 Erythrocyte distribution width (RBC) [Entitic vol] 51.8 fL 35.1-43.9 [facility] Hematocrit Auto (Bld) [Volum e fraction]Ordered By: William Padilla on 04-12-2023 Hematocrit (Bld) [Volume fraction] 41.1 % 40-54 [facility] High density lipoprotein (HD L) measurementOrdered By: Tesha Layne on 04-12-2023 Cholesterol in HDL (Body fld) [Mass/Vol] 54 mg/dL >40 [facility] Comment on above: The drugs N-Acetylcy steine and Metamizole may falsely depress this assay. Reference Range HDL <40 mg/dL Low HDL Cholesterol HDL >or= 60 mg/dL High HDL Cholesterol Immature granulocytes/100 WB C Auto (Bld)Ordered By: William Padilla on 04-12-2023 Immature granulocytes/100 WBC (Bld) 0.300 % 0.0-0.9 [facility] Comment on above: IG% - Immature Granu locytes (promyelocytes, myelocytes and metamyelocytes) > 1% indicates that a LEFT SHIFT is Present. International normalized rat io (INR) calculationOrdered By: Tesha Layne on 04-12-2023 INR Coag (PPP) [Relative time] 1.2 {INR} [facility] - Chemistry and C hemistry - challengeOrdered By: William Padilla on 04-12-2023 Albumin/Globulin [Mass ratio] 0.7 {ratio} 0.9-2.4 [facility] ALP [Catalytic activity/Vol] 85 U/L 45-117 [facility] ALT [Catalytic activity/Vol] 162 U/L 16-61 [facility] CK [Catalytic activity/Vol] 25807 U/L 39-308 [facility] CO2 [Moles/Vol] 18.0 mmol/L 21.0-32.0 [facility] Globulin (S) [Mass/Vol] 4.2 g/dL 2.2-4.2 [facility] Lipase [Catalytic activity/Vol] 42 U/L 13-75 [facility] Comment on above: Please note:LIPASE r evised reference range effective 22. New Lipase methodology. Expected to produce lower values than the previous assay method. NEW Reference Range: 13 - 75 U/L Urea nitrogen/Creatinine [Mass ratio] 21.1 mg/mg 10-20 [facility] - CoagulationOrde red By: Tesha Layne on 04-12-2023 PT Coag (PPP) [Time] 15.0 s 11.7-14.9 [facility] - Hematology and Cell countsOrdered By: William Padilla on 04-12-2023 MCH (RBC) [Entitic mass] 33.3 pg 27.0-32.0 [facility] MCHC (RBC) [Mass/Vol] 33.1 g/dL 32-36 [facility] Nucleated RBC/100 WBC (Bld) [Ratio] 0 % 0-5 [facility] Platelets (Bld) [#/Vol] 123 10*3/uL 150-450 [facility] - Microbiology an d Antimicrobial susceptibilityOrdered By: William Padilla on 04-12-2023 SARS-CoV-2 (COVID-19) RNA RONIT+probe Ql (Unsp spec) Influenzae A [facility] Bacteria identified Cx Nom (Bld) No growth in 5 days. [facility] Bacteria identified Cx Nom (Bld) No growth in 5 days. [facility] Low density lipoprotein (LDL ) cholesterol measurementOrdered By: Tesha Layne on 04-12-2023 Cholesterol in LDL (Body fld) [Moles/Vol] 29 mg/dL 0-130 [facility] No Panel InformationOrdered By: Tesha Layne on 04-12-2023 Troponin I High Sensitivity 2612 pg/mL 3.0-78.0 [facility] Comment on above: Critical Result(s) C alled at: 17:44:43 04/12/2023 by: Rossana ECHAVARRIA. Results read back by same. Please Note: New Test Units and Gender Specific Reference Ranges. For more information see Policy Stat Procedure [place] High Sensitivity Troponin (TNIH) and attachments. No Panel InformationOrdered By: William Padilla on 04-12-2023 Estimated Creatinine Clearance Calc 20.51 ml/min [facility] Estimated GFR (MDRD) Amer 24 mL/min >60 [facility] Comment on above: GFR Calc Estimated GFR (MDRD) Non-Af Amer 20 mL/min >60 [facility] Comment on above: Non- GFR Calc Troponin I High Sensitivity 3604 pg/mL 3.0-78.0 [facility] Comment on above: Critical Result(s) C alled at: 11:50:34 04/12/2023 by: Halie Castro. Results read back by same. Please Note: New Test Units and Gender Specific Reference Ranges. For more information see Policy Stat Procedure [place] High Sensitivity Troponin (TNIH) and attachments. Platelet mean volume Roderick-Ec ker (Bld) [Entitic vol]Ordered By: William Padilla on 04-12-2023 Platelet mean volume (Bld) [Entitic vol] 9.8 fL 6.2-12.0 [facility] RBC Auto (Bld) [#/Vol]Ordere d By: William Padilla on 04-12-2023 RBC (Bld) [#/Vol] 4.08 10*6/uL 4.6-6.2 [facility] Serum or plasma calcium ender urement (mass/volume)Ordered By: William Padilla on 04-12-2023 Calcium [Mass/Vol] 8.7 mg/dL 8.5-10.1 [facility] Serum or plasma creatinine m easurement (mass/volume)Ordered By: William Padilla on 04-12-2023 Creatinine [Mass/Vol] 3.27 mg/dL 0.70-1.30 [facility] Comment on above: The validity of the calculated GFR & GFRAA in patients over 70 years has not been determined. Clinical correlation is essential. Serum or plasma urea nitroge n measurement (mass/volume)Ordered By: William Padilla on 04-12-2023 Urea nitrogen [Mass/Vol] 69 mg/dL 7-18 [facility] Thin prep Papanicolaou smear with manual screeningOrdered By: William Padilla on 04-12-2023 Thin prep Papanicolaou smear with manual screening 3.1 g/dL 3.2-5.0 [facility] Thin prep Papanicolaou smear with manual screening 576 U/L 15-37 [facility] Thin prep Papanicolaou smear with manual screening 11 5-15 [facility] Very low density lipoprotein (VLDL) cholesterol measurementOrdered By: Tesha Layne on 04-12-2023 Cholesterol in VLDL Calc [Moles/Vol] 20 mg/dL 5-40 [facility] Whole blood hemoglobin A1c/t otal hemoglobin ratio (mass fraction)Ordered By: Tesha Layne on 04-12-2023 HbA1c (Bld) [Mass fraction] 5.6 % 3.8-5.6 [facility] Comment on above: Normal < 5.7 % Predi abetic 5.7 - 6.4 % Diabetic >or= 6.5 % Please note range changes. .Auto Diffon 02-28-2023 Basophil, Absolute 0.0 10 3/mcL Normal 0.0-0.2 [facility] ([place]) Comment on above: Performed By: #### T SH, LIPID, URIC, ANEU, CBC, PSA, ADIFF, FT4, GFR, CMP ####[address] [place], [place] [address] Basophils/100 WBC (Bld) 0.4 % Normal 0.0-2.5 A [facility] ([place]) Comment on above: Performed By: #### T SH, LIPID, URIC, ANEU, CBC, PSA, ADIFF, FT4, GFR, CMP ####[address] [place], [place] [address] Eosinophil, Absolute 0.3 10 3/mcL Normal 0.0-0.4 [facility] ([place]) Comment on above: Performed By: #### T SH, LIPID, URIC, ANEU, CBC, PSA, ADIFF, FT4, GFR, CMP ####[address] [place], [place] [address] Eosinophils/100 WBC (Bld) 5.3 % Normal 0.0-7.0 [facility] ([place]) Comment on above: Performed By: #### T SH, LIPID, URIC, ANEU, CBC, PSA, ADIFF, FT4, GFR, CMP ####[address] [place], [place] [address] Lymphocyte, Absolute 1.1 10 3/mcL Normal 0.8-3.9 [facility] ([place]) Comment on above: Performed By: #### T SH, LIPID, URIC, ANEU, CBC, PSA, ADIFF, FT4, GFR, CMP ####[address] [place], [place] [address] Lymphocytes/100 WBC (Bld) 17.3 % Normal 10.0-50.0 [facility] ([place]) Comment on above: Performed By: #### T SH, LIPID, URIC, ANEU, CBC, PSA, ADIFF, FT4, GFR, CMP ####[address] [place], [place] [address] Monocyte, Absolute 0.7 10 3/mcL Normal 0.2-1.0 [facility] ([place]) Comment on above: Performed By: #### T SH, LIPID, URIC, ANEU, CBC, PSA, ADIFF, FT4, GFR, CMP ####[address] [place], [place] [address] Monocytes/100 WBC (Bld) 11.3 % Normal 1.7-13.0 A [facility] ([place]) Comment on above: Performed By: #### T SH, LIPID, URIC, ANEU, CBC, PSA, ADIFF, FT4, GFR, CMP ####[address] [place], [place] [address] Neutrophils/100 WBC (Bld) 65.7 % Normal 37.0-80.0 [facility] ([place]) Comment on above: Performed By: #### T SH, LIPID, URIC, ANEU, CBC, PSA, ADIFF, FT4, GFR, CMP ####[address] [place], [place] [address] .GFRon 02-28-2023 GFR Non- 46 ml/min/1.73sqm Normal [facility] ([place]) Comment on above: Result Comment: GFR Population mean for , Non- Americans Ages 20-29 = 116 mL/min/1.73 sq.m. Ages 30-39 = 107 mL/min/1.73 sq.m. Ages 40-49 = 99 mL/min/1.73 sq.m. Ages 50-59 = 93 mL/min/1.73 sq.m. Ages 60-69 = 85 mL/min/1.73 sq.m. Ages 70+ = 75 mL/min/1.73 sq.m. Chronic Kidney Disease: Less than 60 mL/min/1.73 square meters End Stage Renal Disease: Less than 15 mL/min/1.73 square meters Performed By: #### T SH, LIPID, URIC, ANEU, CBC, PSA, ADIFF, FT4, GFR, CMP ####[address] [place], [place] [address] GFR 56 ml/min/1.73sqm Normal [facility] ([place]) Comment on above: Result Comment: GFR Population mean for , Non- Americans Ages 20-29 = 116 mL/min/1.73 sq.m. Ages 30-39 = 107 mL/min/1.73 sq.m. Ages 40-49 = 99 mL/min/1.73 sq.m. Ages 50-59 = 93 mL/min/1.73 sq.m. Ages 60-69 = 85 mL/min/1.73 sq.m. Ages 70+ = 75 mL/min/1.73 sq.m. Chronic Kidney Disease: Less than 60 mL/min/1.73 square meters End Stage Renal Disease: Less than 15 mL/min/1.73 square meters Performed By: #### T SH, LIPID, URIC, ANEU, CBC, PSA, ADIFF, FT4, GFR, CMP ####[address] [place], [place] [address] .NEUABSon 02-28-2023 Neutrophil, Absolute 4.0 10 3/mcL Normal 2.9-6.2 [facility] ([place]) Comment on above: Performed By: #### T SH, LIPID, URIC, ANEU, CBC, PSA, ADIFF, FT4, GFR, CMP ####[address] [place], [place] [address] CBCon 02-28-2023 Erythrocyte distribution width (RBC) [Ratio] 14.7 % High 11.5-14.5 [facility] ([place]) Comment on above: Performed By: #### T SH, LIPID, URIC, ANEU, CBC, PSA, ADIFF, FT4, GFR, CMP ####[address] [place], [place] [address] Hematocrit (Bld) [Volume fraction] 38.5 % Low 42.0-52.0 [facility] ([place]) Comment on above: Performed By: #### T SH, LIPID, URIC, ANEU, CBC, PSA, ADIFF, FT4, GFR, CMP ####[address] [place], [place] [address] Hgb 13.0 G/dL Low 14.0-18.0 [facility] ([place]) Comment on above: Performed By: #### T SH, LIPID, URIC, ANEU, CBC, PSA, ADIFF, FT4, GFR, CMP ####[address] [place], [place] [address] MCH (RBC) [Entitic mass] 34.8 pg High 27.0-31.2 [facility] ([place]) Comment on above: Performed By: #### T SH, LIPID, URIC, ANEU, CBC, PSA, ADIFF, FT4, GFR, CMP ####[address] [place], [place] [address] MCHC 33.8 G/dL Normal 31.8-35.4 [facility] ([place]) Comment on above: Performed By: #### T SH, LIPID, URIC, ANEU, CBC, PSA, ADIFF, FT4, GFR, CMP ####[address] [place], [place] [address] MCV (RBC) [Entitic vol] 103.0 fL High 80.0-94.0 A [facility] ([place]) Comment on above: Performed By: #### T SH, LIPID, URIC, ANEU, CBC, PSA, ADIFF, FT4, GFR, CMP ####[address] [place], [place] [address] Platelet 161 10 3/mcL Normal 130-400 [facility] ([place]) Comment on above: Performed By: #### T SH, LIPID, URIC, ANEU, CBC, PSA, ADIFF, FT4, GFR, CMP ####[address] [place], [place] [address] Platelet mean volume (Bld) [Entitic vol] 7.6 fL Normal 7.4-10.4 [facility] ([place]) Comment on above: Performed By: #### T SH, LIPID, URIC, ANEU, CBC, PSA, ADIFF, FT4, GFR, CMP ####[address] [place], [place] [address] RBC 3.73 10 6/mcL Low 4.04-6.13 [facility] ([place]) Comment on above: Performed By: #### T SH, LIPID, URIC, ANEU, CBC, PSA, ADIFF, FT4, GFR, CMP ####[address] [place], [place] [address] WBC 6.1 10 3/mcL Normal 4.6-10.8 [facility] ([place]) Comment on above: Performed By: #### T SH, LIPID, URIC, ANEU, CBC, PSA, ADIFF, FT4, GFR, CMP ####[address] [place], [place] [address] CMPon 02-28-2023 ALT [Catalytic activity/Vol] 24 U/L Normal 16-63 [facility] ([place]) Comment on above: Performed By: #### T SH, LIPID, URIC, ANEU, CBC, PSA, ADIFF, FT4, GFR, CMP ####[address] [place], [place] [address] Albumin Level 3.4 G/dL Normal 3.4-4.8 [facility] ([place]) Comment on above: Performed By: #### T SH, LIPID, URIC, ANEU, CBC, PSA, ADIFF, FT4, GFR, CMP ####[address] [place], [place] [address] Albumin/Globulin [Mass ratio] 0.9 {ratio} Low 1.1-2.5 [facility] ([place]) Comment on above: Performed By: #### T SH, LIPID, URIC, ANEU, CBC, PSA, ADIFF, FT4, GFR, CMP ####[address] [place], [place] [address] ALP [Catalytic activity/Vol] 115 U/L Normal 40-135 [facility] ([place]) Comment on above: Performed By: #### T SH, LIPID, URIC, ANEU, CBC, PSA, ADIFF, FT4, GFR, CMP ####[address] [place], [place] [address] AST [Catalytic activity/Vol] 18 U/L Normal 10-40 [facility] ([place]) Comment on above: Performed By: #### T SH, LIPID, URIC, ANEU, CBC, PSA, ADIFF, FT4, GFR, CMP ####[address] [place], [place] [address] Bili Total 0.6 mg/dL Normal 0.2-1.0 [facility] ([place]) Comment on above: Result Comment: Use of this assay is not recommended for patients undergoing treatment with eltrombopag due to the potential for falsely elevated results. Performed By: #### T SH, LIPID, URIC, ANEU, CBC, PSA, ADIFF, FT4, GFR, CMP ####[address] [place], [place] [address] BUN/Creatinine Ratio 22 ratio Normal 7-27 [facility] ([place]) Comment on above: Performed By: #### T SH, LIPID, URIC, ANEU, CBC, PSA, ADIFF, FT4, GFR, CMP ####[address] [place], [place] [address] Calcium [Mass/Vol] 9.2 mg/dL Normal 8.4-10.2 [facility] ([place]) Comment on above: Performed By: #### T SH, LIPID, URIC, ANEU, CBC, PSA, ADIFF, FT4, GFR, CMP ####[address] [place], [place] [address] Chloride [Moles/Vol] 108 mmol/L High 98-107 [facility] ([place]) Comment on above: Performed By: #### T SH, LIPID, URIC, ANEU, CBC, PSA, ADIFF, FT4, GFR, CMP ####[address] [place], [place] [address] CO2 [Moles/Vol] 25 mmol/L Normal 23-31 [facility] ([place]) Comment on above: Performed By: #### T SH, LIPID, URIC, ANEU, CBC, PSA, ADIFF, FT4, GFR, CMP ####[address] [place], [place] [address] Creatinine [Mass/Vol] 1.48 mg/dL High 0.70-1.30 [facility] ([place]) Comment on above: Performed By: #### T SH, LIPID, URIC, ANEU, CBC, PSA, ADIFF, FT4, GFR, CMP ####[address] [place], [place] [address] Electrolyte Balance 10.0 mEq/L Normal 4.0-15.0 [facility] ([place]) Comment on above: Performed By: #### T SH, LIPID, URIC, ANEU, CBC, PSA, ADIFF, FT4, GFR, CMP ####[address] [place], [place] [address] Globulin 3.6 G/dL Normal [facility] ([place]) Comment on above: Performed By: #### T SH, LIPID, URIC, ANEU, CBC, PSA, ADIFF, FT4, GFR, CMP ####[address] [place], [place] [address] Glucose [Mass/Vol] 95 mg/dL Normal 83-110 [facility] ([place]) Comment on above: Performed By: #### T SH, LIPID, URIC, ANEU, CBC, PSA, ADIFF, FT4, GFR, CMP ####[address] [place], [place] [address] Potassium [Moles/Vol] 4.3 mmol/L Normal 3.5-5.1 [facility] ([place]) Comment on above: Performed By: #### T SH, LIPID, URIC, ANEU, CBC, PSA, ADIFF, FT4, GFR, CMP ####[address] [place], [place] [address] Sodium [Moles/Vol] 143 mmol/L Normal 136-145 [facility] ([place]) Comment on above: Performed By: #### T SH, LIPID, URIC, ANEU, CBC, PSA, ADIFF, FT4, GFR, CMP ####[address] [place], [place] [address] Total Protein 7.0 G/dL Normal 6.4-8.2 [facility] ([place]) Comment on above: Performed By: #### T SH, LIPID, URIC, ANEU, CBC, PSA, ADIFF, FT4, GFR, CMP ####[address] [place], [place] [address] Urea nitrogen [Mass/Vol] 33 mg/dL High 7-18 [facility] ([place]) Comment on above: Performed By: #### T SH, LIPID, URIC, ANEU, CBC, PSA, ADIFF, FT4, GFR, CMP ####[address] [place], [place] [address] FT4on 02-28-2023 Free T4 [Mass/Vol] 0.74 ng/dL Low 0.76-1.46 [facility] ([place]) Comment on above: Performed By: #### T SH, LIPID, URIC, ANEU, CBC, PSA, ADIFF, FT4, GFR, CMP ####[address] [place], [place] [address] LABORATORYOrdered By: SYSTEM SYSTEM on 02-28-2023 Albumin BCP dye [Mass/Vol] 3.4 G/dL Normal 3.4 - 4.8 G/dL AO ADM SS Albumin/Globulin [Mass ratio] 0.9 {ratio} Low 1.1 - 2.5 ratio AO ADM SS ALP [Catalytic activity/Vol] 115 U/L Normal 40 - 135 U/L AO ADM SS ALT With P-5'-P [Catalytic activity/Vol] 24 U/L Normal 16 - 63 U/L AO ADM SS AST With P-5'-P [Catalytic activity/Vol] 18 U/L Normal 10 - 40 U/L AO ADM SS Basophil, Absolute 0.0 103/mcL Normal 0.0 - 0.2 10^3/mcL AO Workflow SS Basophils/100 WBC (Bld) 0.4 % Normal 0.0 - 2.5 % AO Workflow SS Bilirubin [Mass/Vol] 0.6 mg/dL Normal 0.2 - 1 .0 mg/dL AO ADM SS Comment on above: Interpretive Data: U se of this assay is not recommended for patients undergoing treatment with eltrombopag due to the potential for falsely elevated results. Calcium [Mass/Vol] 9.2 mg/dL Normal 8.4 - 10. 2 mg/dL AO ADM SS Chloride [Moles/Vol] 108 mmol/L High 98 - 10 7 mmol/L AO ADM SS CO2 [Moles/Vol] 25 mmol/L Normal 23 - 31 mmol/L AO ADM SS Creatinine [Mass/Vol] 1.48 mg/dL High 0.70 - 1.30 mg/dL AO ADM SS Electrolyte Balance 10.0 mEq/L Normal 4.0 - 15 .0 mEq/L AO ADM SS Eosinophil, Absolute 0.3 103/mcL Normal 0.0 - 0 .4 10^3/mcL AO Workflow SS Eosinophils/100 WBC (Bld) 5.3 % Normal 0.0 - 7.0 % AO Workflow SS Erythrocyte distribution width (RBC) [Ratio] 14.7 % High 11.5 - 14.5 % AO Workflow SS Free T4 [Mass/Vol] 0.74 ng/dL Low 0.76 - 1. 46 ng/dL AO ADM SS GFR/1.73 sq M.predicted among blacks MDRD (S/P/Bld) [Vol rate/Area] 56 ml/min/1.73sqm Invalid Interpretation Code AO Chemistry S Comment on above: Interpretive Data: GFR Population mean for , Non- Americans Ages 20-29 = 116 mL/min/1.73 sq.m. Ages 30-39 = 107 mL/min/1.73 sq.m. Ages 40-49 = 99 mL/min/1.73 sq.m. Ages 50-59 = 93 mL/min/1.73 sq.m. Ages 60-69 = 85 mL/min/1.73 sq.m. Ages 70+ = 75 mL/min/1.73 sq.m. Chronic Kidney Disease: Less than 60 mL/min/1.73 square meters End Stage Renal Disease: Less than 15 mL/min/1.73 square meters GFR/1.73 sq M.predicted among non-blacks MDRD (S/P/Bld) [Vol rate/Area] 46 ml/min/1.73sqm Invalid Interpretation Code AO Chemistry S Comment on above: Interpretive Data: GFR Population mean for , Non- Americans Ages 20-29 = 116 mL/min/1.73 sq.m. Ages 30-39 = 107 mL/min/1.73 sq.m. Ages 40-49 = 99 mL/min/1.73 sq.m. Ages 50-59 = 93 mL/min/1.73 sq.m. Ages 60-69 = 85 mL/min/1.73 sq.m. Ages 70+ = 75 mL/min/1.73 sq.m. Chronic Kidney Disease: Less than 60 mL/min/1.73 square meters End Stage Renal Disease: Less than 15 mL/min/1.73 square meters Globulin 3.6 G/dL Invalid Interpretation Code AO ADM SS Glucose [Mass/Vol] 95 mg/dL Normal 83 - 110 mg/dL AO ADM SS Hematocrit (Bld) [Volume fraction] 38.5 % Low 42.0 - 52.0 % AO Workflow SS Hemoglobin (Bld) [Mass/Vol] 13.0 G/dL Low 14.0 - 18.0 G/dL AO Workflow SS Lymphocyte, Absolute 1.1 103/mcL Normal 0.8 - 3 .9 10^3/mcL AO Workflow SS Lymphocytes/100 WBC (Bld) 17.3 % Normal 10.0 - 50.0 % AO Workflow SS MCH (RBC) [Entitic mass] 34.8 pg High 27. 0 - 31.2 pg AO Workflow SS MCHC 33.8 G/dL Normal 31.8 - 35.4 G/dL AO Workflow SS MCV (RBC) [Entitic vol] 103.0 fL High 80.0 - 94.0 fL AO Workflow SS Monocyte, Absolute 0.7 103/mcL Normal 0.2 - 1.0 10^3/mcL AO Workflow SS Monocytes/100 WBC (Bld) 11.3 % Normal 1.7 - 13.0 % AO Workflow SS Neutrophil, Absolute 4.0 103/mcL Normal 2.9 - 6 .2 10^3/mcL AO Workflow SS Neutrophils/100 WBC (Bld) 65.7 % Normal 37.0 - 80.0 % AO Workflow SS Platelet mean volume (Bld) [Entitic vol] 7.6 fL Normal 7.4 - 10.4 fL AO Workflow SS Platelets (Bld) [#/Vol] 161 103/mcL Normal 130 - 400 10^3/mcL AO Workflow SS Potassium [Moles/Vol] 4.3 mmol/L Normal 3.5 - 5.1 mmol/L AO ADM SS Prostate specific Ag [Mass/Vol] 0.95 ng/mL Normal 0.00 - 4.00 ng/mL AO ADM SS Protein [Mass/Vol] 7.0 G/dL Normal 6.4 - 8.2 G/dL AO ADM SS RBC (Bld) [#/Vol] 3.73 106/mcL Low 4.04 - 6.1 3 10^6/mcL AO Workflow SS Sodium [Moles/Vol] 143 mmol/L Normal 136 - 145 mmol/L AO ADM SS TSH Qn 1.72 m[IU]/L Normal 0.36 - 3.74 mcIU/mL AO ADM SS Urea nitrogen [Mass/Vol] 33 mg/dL High 7 - 18 mg/d L AO ADM SS Urea nitrogen/Creatinine [Mass ratio] 22 ratio Normal 7 - 27 ratio AO ADM SS Uric Acid Lvl 5.8 mg/dL Normal 3.5 - 7.2 mg/dL AO ADM SS WBC (Bld) [#/Vol] 6.1 103/mcL Normal 4.6 - 10.8 10^3/mcL AO Workflow SS LABORATORYOrdered By: Simi Talavera on 02-28-2023 Cholesterol [Mass/Vol] 126 mg/dL Normal 0 - 2 00 mg/dL AO ADM SS Comment on above: Interpretive Data: C holesterol Reference Interval: Less than 200 Desirable 200-239 Borderline high risk 240 and above High risk Cholesterol in HDL [Mass/Vol] 52 mg/dL Normal 40 - 60 mg/dL AO ADM SS Cholesterol in LDL [Mass/Vol] 53 mg/dL Normal 0 - 130 mg/dL AO ADM SS Triglyceride [Mass/Vol] 105 mg/dL Normal 0 - 150 mg/dL AO ADM SS Comment on above: Interpretive Data: T riglyceride Reference Interval: Less than 150 Normal 150-199 Borderline high risk 200-499 High risk 500 or higher Very high risk LIPIDon 02-28-2023 Cholesterol [Mass/Vol] 126 mg/dL Normal 0-200 [facility] ([place]) Comment on above: Result Comment: Chol esterol Reference Interval: Less than 200 Desirable 200-239 Borderline high risk 240 and above High risk Performed By: #### T SH, LIPID, URIC, ANEU, CBC, PSA, ADIFF, FT4, GFR, CMP ####[address] [place], [place] [address] Cholesterol in HDL [Mass/Vol] 52 mg/dL Normal 40-60 [facility] ([place]) Comment on above: Performed By: #### T SH, LIPID, URIC, ANEU, CBC, PSA, ADIFF, FT4, GFR, CMP ####[address] [place], [place] [address] Cholesterol in LDL [Mass/Vol] 53 mg/dL Normal 0-130 [facility] ([place]) Comment on above: Performed By: #### T SH, LIPID, URIC, ANEU, CBC, PSA, ADIFF, FT4, GFR, CMP ####[address] [place], [place] [address] Triglyceride [Mass/Vol] 105 mg/dL Normal 0-150 A [facility] ([place]) Comment on above: Result Comment: Trig lyceride Reference Interval: Less than 150 Normal 150-199 Borderline high risk 200-499 High risk 500 or higher Very high risk Performed By: #### T SH, LIPID, URIC, ANEU, CBC, PSA, ADIFF, FT4, GFR, CMP ####[address] [place], [place] [address] PSAon 02-28-2023 Prostate Specific Antigen 0.95 ng/mL Normal 0.00-4.00 [facility] ([place]) Comment on above: Performed By: #### T SH, LIPID, URIC, ANEU, CBC, PSA, ADIFF, FT4, GFR, CMP ####[address] [place], [place] [address] TSHon 02-28-2023 TSH Qn 1.72 m[IU]/L Normal 0.36-3.74 [facility] ([place]) Comment on above: Performed By: #### T SH, LIPID, URIC, ANEU, CBC, PSA, ADIFF, FT4, GFR, CMP ####[address] [place], [place] [address] URICon 02-28-2023 Uric Acid Lvl 5.8 mg/dL Normal 3.5-7.2 [facility] ([place]) Comment on above: Performed By: #### T SH, LIPID, URIC, ANEU, CBC, PSA, ADIFF, FT4, GFR, CMP ####[address] [place], [place] [address] MRI BRAIN WITHOUT IV CONTRAS Ton 01-12-2022 MRI BRAIN WITHOUT IV CONTRAST EXAM: MRI BRAIN WITHOUT IV CONTRAST HISTORY: Mild cognitive impairment of uncertain or unknown etiology: COMPARISON: None. TECHNIQUE: Multiplanar multisequence MR imaging of the brain was performed without intravenous contrast. FINDINGS: Calvarium/skull base: No focal marrow replacing lesion suggestive of neoplasm. Orbits: Bilateral standing rock ocular lens replacements. Paranasal sinuses: Subtotal opacification of the paranasal sinuses with heterogeneous internal signal intensity likely relating to say secretions and/or fungal colonization. Frothy secretions are present involving the maxillary sinuses with near complete opacification of the remaining paranasal sinuses. Brain: No restricted diffusion. Remote lacunar infarct of the anterior paramedian left thalamus. Minimal scattered T2 FLAIR signal hyperintensities involving the supratentorial and to a lesser extent left central pontine white matter. Mild to moderate generalized parenchymal volume loss associated prominence of the ventricular system and sulci. No mass effect, hemorrhage, or hydrocephalus. Grossly normal flow-related signal in the major intracranial arteries and dural sinuses. IMPRESSION: 1. No acute intracranial process. 2. Mild to moderate generalized parenchymal volume loss. 3. Left thalamic lacunar infarct. 4. Minimal supratentorial and to a lesser extent and dural pontine white matter change which in this age group most commonly relates to sequela small vessel disease. 5. Extensive paranasal sinus disease with inspissated secretions and/or fungal colonization. C/o memory loss; nki; no prev sx Normal [employer] VAS ANKLE BRACHIAL INDEXon 0 12-16-2021 VAS ANKLE BRACHIAL INDEX VAS ANKLE BRACH IAL INDEX INDICATIONS: HX OF WOUND ON RT 2ND OR 3RD TOE-PATIENT CAN'T REMEMBER AND SAID IT HAS SINCE GONE AWAY. FINDINGS: The patient underwent a bilateral lower extremity and digits arterial physiological exam including segmental pressures and pulse volume recordings revealing triphasic waveforms and CW doppler. RIGHT Pressure and Index Brachial: 145 Ankle (PT): 171 ; 1.18 Ankle (DP): 180 ; 1.24 Digit: 115 ; 0.79 LEFT Pressure and Index Brachial: 139 Ankle (PT): 161 ; 1.11 Ankle (DP): 164 ; 1.13 Digit: 101 ; 0.70 CONCLUSION: Normal ankle brachial indexes bilaterally Normal digital index bilaterally Normal [facility] SARS-COV-2, TMAon 12-07-2021 SARS-CoV-2 (COVID-19) RNA RONIT+probe Ql (Unsp spec) Positive Abnormal Negative [employer] Comment on above: Result Comment: Posi tive results are indicative of the presence of SARS-CoV-2 RNA; clinical correlation with patient history and other diagnostic information is necessary to determine patient infection status. Positive results do not rule out bacterial infection or co-infection with other viruses. The agent detected may not be the definite cause of disease. The Aptima SARS-CoV-2 assay on the [employer] system is a nucleic acid amplification test(NAAT)intended for use by qualified clinical laboratory personnel specifically instructed and trained in the operation of the [employer] system and in vitro diagnostic procedures. The Aptima SARS-CoV-2 assay is only for use under the Food and Drug Administration's Emergency Use Authorization. Performed By: #### P COVI #### [place] [address] SARS-COV-2, TMAon 10-02-2021 SARS-CoV-2 (COVID-19) RNA RONIT+probe Ql (Unsp spec) Negative Normal Negative [facility] Comment on above: Result Comment: Nega tive results do not preclude SARS-CoV-2 infection and should not be used as the sole basis for patient management decisions. Negative results must be combined with clinical observations, patient history, and epidemiological information. The Aptima SARS-CoV-2 assay on the [employer] system is a nucleic acid amplification test(NAAT)intended for use by qualified clinical laboratory personnel specifically instructed and trained in the operation of the [employer] system and in vitro diagnostic procedures. The Aptima SARS-CoV-2 assay is only for use under the Food and Drug Administration's Emergency Use Authorization. Performed By: #### P COVI #### [place] [address] SARS-COV-2, QPCRon SARS-CoV-2 (COVID-19) RNA RONIT+probe Ql (Unsp spec) Detected Abnormal Not Detected [facility] Comment on above: Result Comment: Resu lts are for the identification of SARS-CoV-2 RNA. The SARS-CoV-2 RNA is generally detectable in upper respiratory and bronchoalveolar lavage (BAL) specimens during the acute phase of infection. Positive results are indicative of the presence of SARS-CoV-2 RNA; clinical correlation with patient history and other diagnostic information is necessary to determine patient infection status. Positive results do not rule out bacterial infection or co-infection with other viruses. The agent detected may not be the definite cause of disease. Negative results do not preclude SARS-CoV-2 infection and should not be used as the sole basis for patient management decisions. Negative results must be combined with clinical observations, patient history, and epidemiological information. Performed By: #### [id number] #### [place] [address] PSA TOTAL DIAGNOSTICon 03-23 PSA Total Diag 0.55 ng/mL 0 - 4 ng/mL [employer] Comment on above: PSA testing performe d using [employer] methodology. XR Abdomen 1 Viewon 03-23-19 1. Given differences in technique, there is unchanged multifocal bilateral nephrolithiasis, as described. 2. Otherwise, no significant change. . [employer] EXAMINATION: ONE SUPINE XRAY VIEW(S) OF THE ABDOMEN 03/23/2020 7:29 am COMPARISON: Plain radiographs of the abdomen 02/25/2019; CT of the abdomen and pelvis, without and with contrast 03/21/2019 HISTORY: Calculus of kidney: Diagnosis: Kidney stone N20.0 (ICD-10-CM) FINDINGS: Given differences in technique, there is unchanged multifocal bilateral nephrolithiasis, measuring up to 1.5 cm in greatest dimension about the right renal lower pole, and 0.8 cm in greatest dimension about the left renal lower pole, all partially obscured by overlapping bowel gas/fecal material. Multiple subcentimeter probable phleboliths are again scattered about the lower pelvis, bilaterally, accompanied by coarsened prostatic calcifications in the lower pelvic midline. There is a nonobstructive bowel gas pattern. Negative for gross intraperitoneal free air. Chronic multilevel asymmetric vertebral compression deformities, related vertebral column curvature/alignment abnormalities, osseous degenerative disease, and background diffuse osteopenia, appear not significantly changed. No other clinically-signific ant changes are noted. . [employer] [place], Rad Results In - 03/23/2020 11:35 AM EST EXAMINATION: ONE SUPINE XRAY VIEW(S) OF THE ABDOMEN 03/23/2020 7:29 am COMPARISON: Plain radiographs of the abdomen 02/25/2019; CT of the abdomen and pelvis, without and with contrast 03/21/2019 HISTORY: Calculus of kidney: Diagnosis: Kidney stone N20.0 (ICD-10-CM) FINDINGS: Given differences in technique, there is unchanged multifocal bilateral nephrolithiasis, measuring up to 1.5 cm in greatest dimension about the right renal lower pole, and 0.8 cm in greatest dimension about the left renal lower pole, all partially obscured by overlapping bowel gas/fecal material. Multiple subcentimeter probable phleboliths are again scattered about the lower pelvis, bilaterally, accompanied by coarsened prostatic calcifications in the lower pelvic midline. There is a nonobstructive bowel gas pattern. Negative for gross intraperitoneal free air. Chronic multilevel asymmetric vertebral compression deformities, related vertebral column curvature/alignment abnormalities, osseous degenerative disease, and background diffuse osteopenia, appear not significantly changed. No other clinically-signific ant changes are noted. . IMPRESSION: 1. Given differences in technique, there is unchanged multifocal bilateral nephrolithiasis, as described. 2. Otherwise, no significant change. . [facility] Uric acidon 11-03-2019 Urate [Mass/Vol] 5.3 mg/dL 3.7 - 8.2 mg/dL [facility] CBC with Differentialon Absolute [place] 0.6 [facility] Basophils (Bld) [#/Vol] 0.0 10*3/uL [facility] Basophils/100 WBC (Bld) 0.2 % [facility] Eosinophils (Bld) [#/Vol] 0.2 10*3/uL [facility] Eosinophils/100 WBC (Bld) 2.9 % [facility] Erythrocyte distribution width (RBC) [Ratio] 14.5 % 11.5 - 14.5 % [facility] Hematocrit (Bld) [Volume fraction] 43.0 % 37.7 - 51.1 % [facility] Hemoglobin (Bld) [Mass/Vol] 14.4 g/dL 12.8 - 17.7 g/dL [facility] Interpretation and review of laboratory results Abnormal [facility] Lymphocytes (Bld) [#/Vol] 1.0 10*3/uL Low [facility] Lymphocytes/100 WBC (Bld) 19.3 % [facility] MCH (RBC) [Entitic mass] 33.4 pg 27 - 34.2 p g [facility] MCHC (RBC) [Mass/Vol] 33.5 g/dL 31.4 - 36.2 g/dl [facility] MCV (RBC) [Entitic vol] 99.8 fL High 80.6 - 99 fL [facility] Monocytes/100 WBC (Bld) 11.3 % [facility] Neutrophils (Bld) [#/Vol] 3.4 10*3/uL [facility] Neutrophils/100 WBC (Bld) 66.3 % [facility] Platelets (Bld) [#/Vol] 152.0 10*3/uL [facility] RBC (Bld) [#/Vol] 4.31 10*6/uL [facility] WBC LM Ql (Sput) 5.1 [facility] Comprehensive metabolic pane l aka [facility] 08-25-2019 Albumin [Mass/Vol] 3.8 g/dL 3.5 - 5 g/dL [facility] Alk Phos 76 U/L 24 - 126 U/L [facility] ALT [Catalytic activity/Vol] 15 U/L 4 - 50 U/L [facility] AST [Catalytic activity/Vol] 21 U/L 3 - 55 U/L [facility] Bilirubin [Mass/Vol] 0.9 mg/dL 0.2 - 1 .6 mg/dL [facility] Calcium [Mass/Vol] 8.9 mg/dL 8.4 - 10. 4 mg/dL [facility] Chloride [Moles/Vol] 107 mmol/L 96 - 10 9 mmol/L [facility] CO2 [Moles/Vol] 26 mmol/L 22 - 30 mmol/L [facility] Comprehensive metabolic 2000 panel 1.03 mg/dL 0.66 - 1.25 mg/dL [facility] Glucose [Mass/Vol] 93 mg/dL 65 - 100 mg/dL [facility] Potassium [Moles/Vol] 4.4 mmol/L 3.6 - 5.1 mmol/L [facility] Protein [Mass/Vol] 6.9 g/dL 6.3 - 8.2 g/dL [facility] Sodium [Moles/Vol] 139 mmol/L 135 - 147 mmol/L [facility] Urea nitrogen [Mass/Vol] 25 mg/dL 8 - 26 mg/d L [facility] GLOMERULAR FILTRATION RATEon 08-25-2019 GFR/1.73 sq M.predicted MDRD (S/P/Bld) [Vol rate/Area] mL/min/{1.73_m2} [facility] Comment on above: To estimate the GFR for Americans, multiply the result provided by 1.21. Population mean GFR = 116 ml/min/1.73 sq.m. for ages 18-29 yrs. The MDRD is validated in individuals 18-70 years of age. It is less accurate in patients with extremes of muscle mass, restriction of dietary protein, ingestion of creatine, extra-renal metabolism of creatinine, or treatment with medications that affect renal tubular creatinine secretion. GFR Categories in Chronic Kidney Disease (CKD) Category: GFR(mL/min/1.73m^2) Interpretation: G1* 90 or greater Normal or high G2* 60-89 Mild decrease G3a 45-59 Mild to moderate decrease G3b 30-44 Moderate to severe decrease G4 15-29 Severe decrease G5 14 or less Kidney failure *G1&G2: In the absence of evidence of kidney damage, neither GFR category G1 nor G2 fulfill the criteria for CKD Kidney Int Suppl.2013;3:1-150 - Lipid panelon 08-25-2019 Cholesterol [Mass/Vol] 115 mg/dL 0 - 2 00 mg/dL [facility] Comment on above: CHOLESTEROL REFERENC E RANGE Desirable <200 mg/dL Borderline 200-239 mg/dL High >240 mg/dL . Cholesterol in HDL [Mass/Vol] 44.9 mg/dL 40 - 59.9 mg/dL [facility] Comment on above: Interpretive data fo r HDL Cholesterol states: HDL <40 mg/dL is low and constitutes a coronary disease risk factor. HDL >60 mg/dL is a negative risk factor for coronary heart disease. . Cholesterol in LDL [Mass/Vol] 59 mg/dL 0 - 100 mg/dL [facility] Comment on above: LDL REFERENCE RANGE Optimal <100 mg/dl Near Optimal 100-129 mg/dL Borderline High 130-159 mg/dL High 160-189 mg/dL Very High >=190 mg/dL . Cholesterol in VLDL [Mass/Vol] 12 mg/dL <42 [facility] Triglyceride [Mass/Vol] 58 mg/dL 0 - 150 mg/dL [facility] Comment on above: TRIGLYCERIDE REFEREN CE RANGE Normal <150 mg/dL Borderline High 150-199 mg/dL High 200-499 mg/dL Very High >=500 mg/dL . TSHon 08-25-2019 TSH Qn 1.790 m[IU]/L [facility] PSA Total Diagnosticon 08-19 PSA Total Diag 0.69 ng/mL 0 - 4 ng/mL [facility] Comment on above: PSA testing performe d using [employer] methodology. GLOMERULAR FILTRATION RATEon 03-21-2019 GFR/1.73 sq M.predicted MDRD (S/P/Bld) [Vol rate/Area] mL/min/{1.73_m2} [facility] Comment on above: To estimate the GFR for Americans, multiply the result provided by 1.21. Population mean GFR = 75 ml/min/1.73 sq.m. for ages 70+ yrs Five stages of CKD and GFR for each stage: Stage 1 GFR >=90 Stage 2 GFR 60-89 Stage 3 GFR 30-59 Stage 4 GFR 15-29 Stage 5 GFR <15 - Metabolic Panelon 03-21-2019 Comprehensive metabolic 2000 panel 1.05 mg/dL 0.66 - 1.25 mg/dL [facility] PSA Total Diagnosticon 02-25 PSA Total Diag 1.05 ng/mL 0 - 4 ng/mL [facility] Comment on above: PSA testing performe d using [employer] methodology. XR Abdomen 1 Viewon 02-26-20 19 Stable bilateral nephrolithiasis. [facility] EXAMINATION: ONE SUPINE XRAY VIEW(S) OF THE ABDOMEN 02/25/2019 10:08 am COMPARISON: February 06, 2018 HISTORY: Calculus of kidney:Calculus in bladder: Diagnosis: Kidney stone N20.0 (ICD-10-CM) FINDINGS: Bowel gas pattern nonobstructed. Similar bilateral nephrolithiasis unchanged from previous. No definite ureteral stones. Osseous structures grossly intact. [facility] Rogers, Rad Results In - 02/25/2019 12:00 PM EST EXAMINATION: ONE SUPINE XRAY VIEW(S) OF THE ABDOMEN 02/25/2019 10:08 am COMPARISON: February 06, 2018 HISTORY: Calculus of kidney:Calculus in bladder: Diagnosis: Kidney stone N20.0 (ICD-10-CM) FINDINGS: Bowel gas pattern nonobstructed. Similar bilateral nephrolithiasis unchanged from previous. No definite ureteral stones. Osseous structures grossly intact. IMPRESSION: Stable bilateral nephrolithiasis. [facility] Vital Signs Date Time Vital Sign Value Performing Clinician Facility 09-18-2024 13:41-0400 Body height 172.[address] Angela Mera MD Work Phone: [facility] 09-18-2024 13:41-0400 Body mass index (BMI) [Ratio] 29.5 kg/m2 Dr. Angela Mera MD Work Phone: [facility] 09-18-2024 13:41-0400 Body weight 87.[address] Angela Mera MD Work Phone: [facility] 09-18-2024 13:41-0400 Diastolic blood pressure 66 mm[Hg] Dr. Angela Mera MD Work Phone: [facility] 09-18-2024 13:41-0400 Heart rate 61 /min Dr. Angela Mera MD Work Phone: [facility] 09-18-2024 13:41-0400 Respiratory rate 18 /min Dr. Angela Mera MD Work Phone: [facility] 09-18-2024 13:41-0400 SaO2% (BldA) [Mass fraction] 94 % Dr. Angela Mera MD Work Phone: [facility] 09-18-2024 13:41-0400 Systolic blood pressure 105 mm[Hg] Dr. Angela Mera MD Work Phone: [facility] 07-23-2023 08:33-0400 Body height 172.[address] Angela Mera Work Phone: [facility] 07-23-2023 08:33-0400 Body mass index (BMI) [Ratio] 31.9 kg/m2 Dr. Angela Mera Work Phone: [facility] 07-23-2023 08:33-0400 Body weight 95.[address] Angela Mera Work Phone: [facility] 07-23-2023 08:33-0400 Diastolic blood pressure 71 mm[Hg] Dr. Angela Mera Work Phone: [facility] 07-23-2023 08:33-0400 Heart rate 60 /min Dr. Angela Mera Work Phone: [facility] 07-23-2023 08:33-0400 Respiratory rate 20 /min Dr. Angela Mera Work Phone: [facility] 07-23-2023 08:33-0400 SaO2% (BldA) [Mass fraction] 96 % Dr. Angela Mera Work Phone: [facility] 07-23-2023 08:33-0400 Systolic blood pressure 121 mm[Hg] Dr. Angela Mera Work Phone: [facility] 05-22-2023 11:14-0500 Body mass index (BMI) [Ratio] 30.4 kg/m2 Dr. Angela Mera Work Phone: [facility] 05-22-2023 11:14-0500 Body weight 90.[address] Angela Mera Work Phone: [facility] 05-22-2023 11:14-0500 Diastolic blood pressure 54 mm[Hg] Dr. Angela Mera Work Phone: [facility] 05-22-2023 11:14-0500 Heart rate 58 /min Dr. Angela Mera Work Phone: [facility] 05-22-2023 11:14-0500 Respiratory rate 18 /min Dr. Angela Mera Work Phone: [facility] 05-22-2023 11:14-0500 Systolic blood pressure 96 mm[Hg] Dr. Angela Mera Work Phone: [facility] 04-18-2023 16:07-0500 Body temperature 97.9 [degF] Dr. Angela Mera Work Phone: [facility] 04-18-2023 16:07-0500 Diastolic blood pressure 71 mm[Hg] Dr. Angela Mera Work Phone: [facility] 04-18-2023 16:07-0500 Heart rate 65 /min Dr. Angela Mera Work Phone: [facility] 04-18-2023 16:07-0500 Respiratory rate 17 /min Dr. Angela Mera Work Phone: [facility] 04-18-2023 16:07-0500 SaO2% (BldA) [Mass fraction] 95 % Dr. Angela Mera Work Phone: [facility] 04-18-2023 16:07-0500 Systolic blood pressure 158 mm[Hg] Dr. Angela Mera Work Phone: [facility] 04-16-2023 10:57-0500 Body height 172.[address] Angela Mera Work Phone: [facility] 04-16-2023 10:57-0500 Body weight 89.[address] Angela Mera Work Phone: [facility] 04-16-2023 09:12-0500 Inhaled oxygen flow rate 2 L/min Dr. Angela Mera Work Phone: [facility] 04-12-2023 14:07-0500 Body mass index (BMI) [Ratio] 29.9 kg/m2 Dr. Angela Mera Work Phone: [facility] 04-12-2023 13:30-0500 Diastolic blood pressure 57 mm[Hg] [facility] 04-12-2023 13:30-0500 Heart rate 70 /min [facility] 04-12-2023 13:30-0500 Inhaled oxygen flow rate 2 L/min [facility] 04-12-2023 13:30-0500 Respiratory rate 25 /min [facility] 04-12-2023 13:30-0500 SaO2% (BldA) [Mass fraction] 93 % [facility] 04-12-2023 13:30-0500 Systolic blood pressure 97 mm[Hg] [facility] 04-12-2023 10:35-0500 Body height 172.72 cm [facility] 04-12-2023 10:35-0500 Body mass index (BMI) [Ratio] 30.9 kg/m2 [facility] 04-12-2023 10:35-0500 Body temperature 99 [degF] [facility] 04-12-2023 10:35-0500 Body weight 92.1 kg [facility] 04-19-2021 13:32-0500 Body height 172.7 cm Rosa Khan MD Work Phone: [facility] 04-19-2021 13:32-0500 Body mass index (BMI) [Ratio] 32.2 kg/m2 Rosa Khan MD Work Phone: [facility] 04-19-2021 13:32-0500 Body weight 96.07 kg Rosa Khan MD Work Phone: [facility] 04-19-2021 13:32-0500 Diastolic blood pressure 72 mm[Hg] Rosa Khan MD Work Phone: [facility] 04-19-2021 13:32-0500 Heart rate 60 /min Rosa Khan MD Work Phone: [facility] 04-19-2021 13:32-0500 Respiratory rate 16 /min Rosa Khan MD Work Phone: [facility] 04-19-2021 13:32-0500 Systolic blood pressure 152 mm[Hg] Rosa Khan MD Work Phone: [facility] 02-19-2019 11:01-0500 BP Diastolic 62 mm[Hg] [facility] 02-19-2019 11:01-0500 BP Systolic 125 mm[Hg] Ben [facility] 02-19-2019 11:01-0500 Pulse (Heart Rate) 46 /min [facility] 02-19-2019 11:01-0500 Pulse Oximetry 93 % Ben [facility] 02-19-2019 11:01-0500 Respiratory Rate 19 /min [facility] 02-19-2019 10:40-0500 Body Temperature 97.39 [degF] [facility] 02-19-2019 09:26-0500 BMI (Body Mass Index) 28.02 kg/m2 [facility] 02-19-2019 09:26-0500 Body weight 88.56 kg Ben [facility] 02-19-2019 09:26-0500 Height 177.8 cm [facility] Encounters Encounter Date Encounter Type Care Provider Facility Start: 09-22-2024 End: 09-22-[address] Angela Mera MD Work Phone: -Laboratory Start: 09-22-2024 End: 09-22-[address] Jack Fuller MD -Laboratory Work Phone: Start: 09-22-2024 End: 09-22-2024 ambulatory Jack Fuller Facility:[facility] Start: 09-18-2024 End: 09-18-[address] Jack Fuller MD -[facility] Work Phone: Start: 09-18-2024 End: 09-18-[address] Angela Mera MD Work Phone: -[facility] Start: 08-26-2024 End: 08-26-2024 ambulatory ANGELA MERA MD Facility:[facility] Start: 08-26-2024 End: 08-26-2024 Patient encounter procedure ANGELA MERA MD [facility] Start: 08-18-2024 End: 08-22-2024 ambulatory ANGELA MERA MD Facility:[facility] Start: 08-18-2024 End: 08-22-2024 Outreach Lab JANET GILL AGRONOMY RESEARCH MANAGER-[employer]EL [employer] MACHINE OPERATOR [facility] Start: 08-18-2024 End: 08-22-2024 ambulatory ANGELA MERA MD Facility:[facility] Start: 08-18-2024 End: 08-22-2024 Outreach Lab JANET GILL AGRONOMY RESEARCH MANAGER-[employer]EL [employer] MACHINE OPERATOR [facility] Start: 08-06-2024 End: 08-06-2024 ambulatory ANGELA MERA MD Facility:[facility] Start: 08-06-2024 End: 08-06-2024 Patient encounter procedure ANGELA MERA MD [facility] Start: 04-14-2024 End: 04-14-2024 ambulatory ANGELA MERA MD Facility:[facility] Start: 04-14-2024 End: 04-14-2024 Patient encounter procedure ANGELA MERA MD [facility] Start: 12-12-2023 End: 12-12-2023 ambulatory Angela Mera Facility:[facility] Start: 11-29-2023 End: 11-29-2023 ambulatory ANGELA MERA MD Facility:[facility] Start: 11-29-2023 End: 11-29-2023 Patient encounter procedure ANGELA MERA MD [facility] Start: 11-28-2023 End: 11-28-2023 ambulatory Angela Mera Facility:[facility] Start: 10-05-2023 End: 10-09-2023 ambulatory ANGELA MERA MD Facility:[facility] Start: 10-05-2023 End: 10-09-2023 Outreach Lab ANGELA MERA MD [facility] Start: 07-23-2023 End: 07-23-[address] Angela Mear Work Phone: [facility] Work Phone: Start: 07-23-2023 End: 07-23-[address] Angela Mera Work Phone: [facility] Work Phone: Start: 07-04-2023 End: 07-08-2023 ambulatory ANGELA MERA MD Facility:[facility] Start: 07-04-2023 End: 07-08-2023 Outreach Lab ANGELA MERA MD [facility] Start: 06-22-2023 End: 06-22-2023 ambulatory ANGELA MERA MD Facility:[facility] Start: 06-21-2023 End: 06-21-2023 ambulatory ANGELA MERA MD Facility:[facility] Start: 06-21-2023 End: 06-21-2023 Patient encounter procedure ANGELA MERA MD [facility] Start: 05-22-2023 End: 05-22-[address] Angela Mera Work Phone: [facility] Work Phone: Start: 05-18-2023 End: 05-18-2023 ambulatory ANGELA MERA MD Facility:[facility] Start: 05-18-2023 End: 05-18-2023 Patient encounter procedure ANGELA MERA MD [facility] Start: 05-03-[address] Angela Mera Work Phone: [facility] Start: 04-26-[address] Angela Mera Work Phone: [facility] Start: 04-24-2023 End: 04-24-[address] Angela Mera Work Phone: [facility] Work Phone: Start: 04-20-[address] Angela Mera Work Phone: [facility] Start: 04-19-2023 End: 04-19-[address] Angela Mera Work Phone: [facility] Work Phone: Start: 04-18-2023 Non-patient / Non-visit Dr. Chen Work Phone: [facility] Work Phone: Start: 04-17-2023 Non-patient / Non-visit Dr. Chen Work Phone: [facility] Work Phone: Start: 04-16-2023 Non-patient / Non-visit Dr. Chen Work Phone: [facility] Work Phone: Start: 04-15-2023 Non-patient / Non-visit Dr. Chen Work Phone: [facility] Work Phone: Start: 04-15-2023 Non-patient / Non-visit Dr. Chen Work Phone: [facility] Start: 04-14-2023 Non-patient / Non-visit Dr. Chen Work Phone: [facility] Work Phone: Start: 04-13-2023 Non-patient / Non-visit Dr. Chen Work Phone: [facility] Work Phone: Start: 04-13-2023 Non-patient / Non-visit Dr. Chen Work Phone: [facility] Start: 04-12-2023 Non-patient / Non-visit Dr. Chen Work Phone: [facility] Start: 04-12-2023 End: 04-18-2023 Evaluation and management of inpatient [facility] Work Phone: Start: 02-28-2023 End: 03-04-2023 ambulatory ANGELA MERA MD Facility:[facility] Start: 02-28-2023 End: 03-04-2023 Outreach Lab ANGELA MERA MD [facility] Start: 01-12-2022 End: 01-13-2022 ambulatory [facility] Start: 01-12-2022 End: 01-12-2022 Subsequent hospital visit by physician Unlisted Provider [facility] Comment on above: Mild cognitive impai rment of uncertain or unknown etiology Start: 12-19-2021 End: 12-19-2021 ambulatory [facility] Start: 12-15-2021 End: 12-16-2021 ambulatory [facility] Start: 12-15-2021 End: 12-15-2021 Subsequent hospital visit by physician tal [facility] Comment on above: Non-pressure chronic ulcer of other part of right lower leg with fat layer exposed; PAD (peripheral artery disease) Start: 12-06-2021 End: 12-06-2021 ambulatory [facility] Start: 12-05-2021 End: 12-05-2021 Subsequent hospital visit by physician Darin Quijano DO Work Phone: [facility] Start: 12-05-2021 End: 12-05-2021 ambulatory [facility] Start: 11-23-2021 End: 11-23-2021 ambulatory [facility] Start: 09-30-2021 End: 10-01-2021 ambulatory [facility] Start: 09-30-2021 End: 09-30-2021 Subsequent hospital visit by physician Darin Quijano DO Work Phone: [facility] Start: 09-30-2021 End: 09-30-2021 ambulatory [facility] hospital Start: 09-30-2021 Encounter for other specified special examinations YONY RUFINA [facility] Start: 05-31-2021 ambulatory [facility] Start: 04-19-2021 End: 04-19-2021 Office outpatient visit 25 minutes Rosa Khan MD Work Phone: [facility] Comment on above: 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 (Primary Dx); Essential (primary) hypertension; Mixed hyperlipidemia Start: 02-09-2021 End: 02-09-2021 ambulatory [facility] Start: 02-05-2021 End: 02-06-2021 ambulatory [facility] Start: 02-05-2021 End: 02-05-2021 Subsequent hospital visit by physician Yojana Brooks MD Work Phone: [facility] Start: 02-05-2021 End: 02-05-2021 ambulatory [facility] Start: 03-23-2020 End: 03-23-2020 Subsequent hospital visit by physician Jarrell Gray [facility] Comment on above: Benign prostatic hyp erplasia with weak urinary stream Kidney stone Start: 11-03-2019 End: 11-03-2019 Subsequent hospital visit by physician Lilly Philippe Work Phone: [facility] Comment on above: Chronic gout of righ t foot, unspecified cause Start: 08-25-2019 End: 08-25-2019 Subsequent hospital visit by physician [facility] Comment on above: Screening for endocr ine, metabolic and immunity disorder Start: 08-20-2019 End: 08-20-2019 Subsequent hospital visit by physician Lilly Philippe Work Phone: [facility] Comment on above: Benign prostatic hyp erplasia with weak urinary stream Start: 05-06-2019 End: 05-06-2019 Refill Levi Ramos, Family Practice Start: 03-21-2019 End: 03-21-2019 Subsequent hospital visit by physician Ginny Hylton [facility] Comment on above: Microscopic hematuri a Microscopic hematuri a (Primary Dx); Kidney stone; Microhematuria Start: 03-18-2019 End: 03-18-2019 Orders Only Levi Ramos, Family Practice Comment on above: Screening for endocr ine, metabolic and immunity disorder (Primary Dx) Start: 03-03-2019 End: 03-03-2019 Subsequent hospital visit by physician Ginny Hylton Work Phone: [facility] Comment on above: Microhematuria; Abnormal urinalysis Start: 02-25-2019 End: 02-25-2019 Subsequent hospital visit by physician Tay Solis Work Phone: [facility] Comment on above: BPH without obstruct ion/lower urinary tract symptoms Kidney stone; Bladder stones Start: 02-19-2019 End: 02-19-2019 Subsequent hospital visit by physician Ben Simental Work Phone: [facility] [place] Comment on above: History of colon vivian yps; History of colon polyps Start: 02-18-2019 End: 02-18-2019 Telephone encounter Ben Simental Work Phone: [facility] Comment on above: Information or Advic e only Procedures Date Procedure Procedure Detail Performing Clinician Start: 04-18-[address] Angela Mera Work Phone: Start: 04-14-2023 Computed tomography of soft tissues of neck without contrast Dr. Angela Mera Work Phone: Start: 04-13-[address] Angela Mera Work Phone: Start: 04-13-[address] Chen Work Phone: Start: 04-12-2023 Bacteria identified in Blood by Culture Dr. Angela Mera Work Phone: Start: 04-12-2023 SARS-CoV-2, Influenz a & RSV (PCR) Start: 04-12-2023 Plain chest X-ray Start: 04-12-2023 Computed tomography of thoracic spine without contrast Start: 04-12-2023 CT cervical spine wi thout contrast Start: 04-12-2023 CT of head without contrast Start: 04-12-2023 CT of lumbar spine Start: 03-23-2020 Radiologic exam abdo men 1 view Jarrell Gray Start: 03-23-2020 Assay of prostate specific antigen total Jarrell Gray Start: 11-03-2019 Assay of blood/uric acid Lilly Philippe Work Phone: Start: 10-20-2019 Adult depression screening assessment Lilly Philippe Start: 08-25-2019 Assay of thyroid stimulating hormone tsh Lilly Philippe Work Phone: Start: 08-25-2019 CBC WITH DIFFERENTIAL C ather[facility]ia Phiilppe Work Phone: Start: 08-25-2019 Comprehensive metabo lic panel Lilly Philippe Work Phone: Start: 08-25-2019 GLOMERULAR FILTRATIO N RATE Lilly Philippe Work Phone: Start: 08-25-2019 Lipid panel Lilly Philippe Work Phone: Start: 08-25-2019 Lipid 1996 panel - S yuki or Plasma Lilly Philippe Start: 08-20-2019 Assay of prostate specific antigen total Ginny Hylton Work Phone: Start: 03-21-2019 Creatinine blood Ginny Hylton Work Phone: Start: 03-21-2019 GLOMERULAR FILTRATIO N RATE Ginny Hylton Work Phone: Start: 02-25-2019 Radiologic exam abdo men 1 view Karlossolo Solis Work Phone: Start: 02-25-2019 Assay of prostate specific antigen total Tay Solis Work Phone: Start: 11-19-2018 Lipid 1996 panel - S yuki or Plasma Ben Simental History of placement of stent for coronary artery disease History of heart artery stent Dr. Angela Mera Work Phone: Plan of Treatment Date Care Activity Detail Author Start: 08-24-2024 Fasting lipid profile LIPID SCREENIN G [employer] Start: 02-20-2024 Screening colonoscopy [facility] Start: 02-20-2024 Screening for malign ant neoplasm of colon COLONOSCOPY HIGH RISK (5 YEAR) [employer] [facility] Start: 11-20-2023 Fasting lipid profile LIPID SCREENIN G Veronica [facility] [facility] Start: 04-18-2023 Patient discharge [facility] Start: 04-18-2023 [facility] Start: 04-18-2023 [facility] Start: 04-16-2023 [facility] Start: 04-15-2023 Application of intermittent pneumatic compression device [facility] Start: 04-13-2023 Referral to self sealing fuel tank builder [facility] Start: 04-12-2023 Respiratory secretio n precautions [facility] Start: 04-12-2023 Bacteria identified in Blood by Culture Blood Culture [facility] Start: 04-12-2023 Following clinical pathway protocol [facility] Start: 04-12-2023 Assessment of risk o f venous thromboembolism [facility] Start: 04-12-2023 Insertion of cathete r into peripheral vein [facility] Start: 04-12-2023 Measuring intake and output [facility] Start: 04-12-2023 Providing care accor ding to standard [facility] Start: 04-12-2023 Provision of activit y privileges [facility] Start: 04-12-2023 Referral to bobbin inspector [facility] Start: 04-12-2023 Referral to occupati onal therapist [facility] Start: 04-12-2023 Referral to service [facility] Start: 04-12-2023 Tobacco use cessatio n education [facility] Start: 04-12-2023 [facility] Start: 04-12-2023 Partial thromboplast in time, activated [facility] Start: 04-12-2023 Prothrombin time [facility] Start: 04-12-2023 Admission procedure [facility] Start: 04-12-2023 Hospital admission, emergency, from emergency room, medical nature [facility] Start: 04-12-2023 End: 04-12-2023 Blood culture [facility] Start: 04-12-2023 Patient referral to dietitian [facility] Start: 04-19-2022 End: 04-19-2022 Patient encounter procedure 04/19/2022 Office Visit Cardiology Dannielle Hartmann MD [address] [place] [address] [facility] Start: 12-19-2021 End: 12-19-2021 Patient encounter procedure 12/19/2021 Office Visit Vascular Surgery Darion Bass, DO [address] [place] [address] [facility] Start: 11-17-2021 Influenza vaccination Influenza Vacc ine (#1) [facility] Start: 11-17-2021 Influenza vaccinatio n given INFLUENZA VACCINE (#1) [facility] Start: 09-16-2021 Glaucoma screening GLAUCOMA/EY E EXAM AGE 65+ [facility] Start: 03-30-2021 End: 03-30-2021 Patient encounter procedure 03/30/2021 Office Visit Urology Tay Solis APRN [address] [address] [facility] Start: 03-10-2021 COVID-19 Vaccine (3 - Booster for Moderna series) COVID-19 Vaccine (3 - Booster for Moderna series) [facility] Start: 02-22-2021 Uric acid measurement URIC ACID G [facility] Start: 02-08-2021 COVID-19 Vaccine (3 - Booster for Moderna series) COVID-19 Vaccine (3 - Booster for Moderna series) [facility] Start: 11-17-2020 Influenza vaccination Influenza Vacc ine (#1) [facility] Start: 11-17-2020 Influenza vaccinatio n given INFLUENZA VACCINE (#1) [facility] Start: 10-20-2020 ANNUAL WELLNESS VISIT ANNUAL WELLNES S VISIT [facility] Start: 10-19-2020 Adult depression screening assessment DEPRESSION SCREENING [facility] Start: 10-19-2020 Fall risk assessment FALL RISK [facility] Start: 10-19-2020 End: 10-19-2020 Office Visit 10/19/2020 Office Visit Family Medicine Kiarra Ramos DO [address] [place] [address] [phone] Dr Kiarra Ramos, Family [facility] Start: 09-08-2020 COVID-19 VACCINE (2 - Moderna 3-dose booster series) COVID-19 VACCINE (2 - Moderna 3-dose booster series) [facility] Start: 09-08-2020 COVID-19 VACCINE (2 - Moderna 3-dose series) COVID-19 VACCINE (2 - Moderna 3-dose series) [facility] Start: 09-08-2020 COVID-19 VACCINE (2 - Moderna series) COVID-19 VACCINE (2 - Moderna series) [facility] Start: 09-06-2020 End: 09-06-2020 Office Visit 09/06/2020 Office Visit Family Medicine Kiarra Ramos DO [address] [place] [address] [phone] Dr Kiarra Ramos, [facility] Start: 09-01-2020 End: 09-01-2020 Clinical Support 09/01/2020 Clinical Support [facility], [facility] [address] [place] [address] [phone] Dr Kiarra Ramos, [facility] Start: 03-29-2020 End: 03-29-2020 Office Visit 03/29/2020 Office Visit Urology Ginny Hylton APRN [address] [address] [phone] [facility] Start: 03-01-2020 End: 03-01-2020 Office Visit 03/01/2020 Office Visit Family Medicine Kiarra Ramos DO [address] [place] [address] [phone] Dr Kiarra Ramos, [facility] Start: 02-23-2020 End: 02-23-2020 Clinical Support 02/23/2020 Clinical Support [facility], [facility] [address] [place] [address] [phone] Dr Kiarra Ramos, [facility] Start: 11-18-2019 Influenza vaccinatio n given [facility] Start: 09-03-2019 End: 09-03-2019 Office Visit 09/03/2019 Office Visit [facility] Medicine Kiarra Ramos DO [address] [place], [place] [id number] Dr Kiarra Ramos, [facility] Start: 06-17-2019 End: 06-17-2019 Office Visit 06/17/2019 Office Visit [facility] Medicine Kiarra Ramos DO [address] [place] [address] [phone] Dr Kiarra Ramos, [facility] Start: 06-09-2019 End: 04-18-2020 CBC with Differential CBC with Differential Lab Routine Screening for endocrine, metabolic and immunity disorder Expected: 06/09/2019 (Approximate), Expires: 04/18/2020 [facility] Comment on above: Expected: 06/09/2019 (Approximate), Expires: 04/18/2020 Start: 06-09-2019 End: 04-18-2020 Comprehensive metabolic panel aka [facility] Comprehensive metabolic panel aka [facility] Lab Routine Screening for endocrine, metabolic and immunity disorder Expected: 06/09/2019, Expires: 04/18/2020 [facility] Comment on above: Expected: 06/09/2019 , Expires: 04/18/2020 Start: 06-09-2019 End: 04-18-2020 Lipid panel Lipid panel Lab Routine Screening for endocrine, metabolic and immunity disorder Expected: 06/09/2019 (Approximate), Expires: 04/18/2020 [facility] Comment on above: Expected: 06/09/2019 (Approximate), Expires: 04/18/2020 Start: 06-09-2019 End: 04-18-2020 TSH Qn TSH Lab Routine Screening for endocrine, metabolic and immunity disorder Expected: 06/09/2019 (Approximate), Expires: 04/18/2020 [facility] Comment on above: Expected: 06/09/2019 (Approximate), Expires: 04/18/2020 Start: 03-28-2019 End: 03-28-2019 Procedure visit 03/28/2019 Procedure visit Urology Jarrell Gray MD [address] [place] [address] [phone] [facility] Start: 03-21-2019 End: 03-21-2019 Appointment 03/21/2019 Appointment Radiology [place] GinnyGUERRERO STEEL WOOL MACHINE OPERATOR [address] [address] [phone] [facility] Start: 03-18-2019 End: 03-18-2019 Office Visit 03/18/2019 Office Visit Family Medicine Lilly Philippe, AGRONOMY RESEARCH MANAGER STEEL WOOL MACHINE OPERATOR [address] [place] [address] [phone] Dr Kiarra Ramos, [facility] Start: 03-03-2019 End: 03-03-2019 Office Visit 03/03/2019 Office Visit Urology Solis GinnyGUERRERO STEEL WOOL MACHINE OPERATOR [address] [address] [phone] [facility] Start: 12-13-2018 COLONOSCOPY 3YRS HIG H RISK COLONOSCOPY 3YRS HIGH RISK [facility] Start: 11-17-2018 Influenza vaccinatio n given INFLUENZA VACCINE (#1) [facility] Start: 05-30-2017 [facility] Start: 02-28-2014 Pneumococcal Vaccine : 65+ Years (2 - PCV) Pneumococcal Vaccine: 65+ Years (2 - PCV) [facility] Start: 2010 Fall risk assessment FALL RISK [facility] Start: 2010 Glaucoma screening GLAUCOMA/EY E EXAM AGE 65+ [facility] Start: 2010 Pneumococcal 23-mecca nt polysaccharide vaccination given (situation) PNEUMONIA VACCINE (PCV13 PPSV23) (1 - PCV) [facility] Start: 2010 Pneumococcal polysaccharide vaccine (product) PNEUMONIA VACCINE (PCV13 PPSV23) (1 of 2 - PCV13) [facility] Start: 09-16-2008 DTaP/Tdap/Td Vaccine s (2 - Td or Tdap) DTaP/Tdap/Td Vaccines (2 - Td or Tdap) [facility] Start: 2005 Varicella-zoster vac cine (product) ADULT VZV VACCINE [facility] Start: 1995 SHINGLES VACCINE (1 of 2) VENTURA GLES VACCINE (1 of 2) [facility] Start: 1995 Zoster vaccine hzv l mark for subcutaneous use ZOSTER (SHINGLES) VACCINE (1 of 2) [facility] Start: 1995 Zoster Vaccines (1 of 2) Zoster Vacc lyndsay (1 of 2) [facility] Start: 1966 Tetanus, diphtheria and acellular pertussis vaccination TDAP/TD ADULT [facility] Start: 1963 ANNUAL WELLNESS VISIT ANNUAL WELLNES S VISIT [facility] Start: 1963 WELLNESS ANNUAL VISIT WELLNESS ANNUA L VISIT [facility] Start: 1957 Adult depression screening assessment [facility] Start: 1957 Depression screening using PHQ-9 (Patient Health Questionnaire 9) score DEPRESSION SCREENING [facility] Start: 01-04-1956 Administration of diphtheria + tetanus + acellular pertussis vaccine DTAP/TDAP/TD VACCINE (1 - Tdap) [facility] Start: 01-04-1956 Diphtheria + pertuss is + tetanus vaccine (product) DTAP/TDAP/TD VACCINE (1 - Tdap) [facility] Start: 1945 Hepatitis C screening HEPATITIS C SC REENING [facility] Start: 1945 Lipid panel Lipid Panel [facility] Bilirubin measuremen t, urine [facility] End: 03-21-2019 CT Abdomen WO and W contrast IV CT Abdomen Pelvis With and Without IV Contrast Imaging Routine Kidney stone Microhematuria 1 Occurrences starting 03/21/2019 until 03/21/2019 [facility] Comment on above: 1 Occurrences starti ng 03/21/2019 until 03/21/2019 CT Abdomen WO and W contrast IV CT Abdomen Pelvis With and Without IV Contrast Imaging Routine Kidney stone Microhematuria 03/21/2019 10:22 AM EST [facility] ECG 12 Lead - In Clinic ECG 12 L ead - In Clinic ECG Routine Essential (primary) hypertension Ordered: 04/19/2021 [facility] Work Phone: Comment on above: Ordered: 04/19/2021 Hemoglobin [Presence ] in Urine [facility] Hemoglobin A1c/Hemoglobin.total in Blood [facility] Hepatic function panel [facility] INR in Blood by Coagulation assay [facility] Lipid 1996 panel - S yuki or Plasma [facility] Measurement of keton es in urine using dipstick [facility] Microscopic urinalysis [facility] End: 01-12-2022 MR Brain WO contrast [facility] Comment on above: 1 Occurrences starti ng 01/12/2022 until 01/12/2022 NM Heart Views W str ess and W radionuclide IV [facility] Oxygen Therapy Nasal Cannula; Liters Per Minute: 2.0 LPM; RT may modify oxygen administration per policy: Yes During procedure Oxygen Therapy Nasal Cannula; Liters Per Minute: 2.0 LPM; RT may modify oxygen administration per policy: Yes During procedure Respiratory Care Routine Continuous until discontinued starting 02/19/2019 [facility] Comment on above: Continuous until dis continued starting 02/19/2019 Patient referral [facility] Work Phone: pH of Urine [facility] POCT glucose for medication controlled diabetic patient POCT glucose for medication controlled diabetic patient Lab Routine ONE TIME for 1 Occurrences starting 02/19/2019 [facility] Comment on above: ONE TIME for 1 Occur rences starting 02/19/2019 Pulse oximetry, continuous Pulse oximetry, continuous Respiratory Care Routine Continuous until discontinued starting 02/19/2019 [facility] Comment on above: Continuous until dis continued starting 02/19/2019 End: 02-05-2021 SARS-COV-2, qPCR ([facility]) [facility] Work Phone: Comment on above: One Time for 1 Occur rences starting 02/05/2021 until 02/05/2021 End: 09-30-2021 SARS-COV-2, [facility] [employer] Work Phone: Comment on above: One Time for 1 Occur rences starting 09/30/2021 until 09/30/2021 Specific gravity of Urine [facility] End: 02-19-2019 Surgical Pathology Exam Surgical Pathology Exam Lab Routine One Time for 1 Occurrences starting 02/19/2019 until 02/19/2019 [facility] Comment on above: One Time for 1 Occur rences starting 02/19/2019 until 02/19/2019 Urinalysis, blood, qualitative [facility] End: 03-03-2019 Urine culture and sensitivity Urine culture and sensitivity Microbiology Routine Microhematuria Abnormal urinalysis 1 Occurrences starting 03/03/2019 until 03/03/2019 [facility] Comment on above: 1 Occurrences starti ng 03/03/2019 until 03/03/2019 Urine culture and sensitivity Urine culture and sensitivity Microbiology Routine Microhematuria Abnormal urinalysis 03/03/2019 1:30 PM EST [facility] Urine dipstick for glucose [facility] Urine dipstick for leukocyte esterase [facility] Urine dipstick for nitrite [facility] Urine dipstick for protein [facility] Urine examination [facility] Urine microscopy: epithelial cells [facility] Urine Microscopy: wh ite cells [facility] Urobilinogen [Presen ce] in Urine [facility] End: 12-15-2021 VAS ANKLE BRACHIAL INDEX [facility] [employer] Work Phone: Comment on above: Once for 1 Occurrenc es starting 12/15/2021 until 12/15/2021 Immunizations Immunization Date Immunization Notes Care Provider Fa cility 06-10-2024 Pneumococcal conjuga te PCV20, polysaccharide PHU540 conjugate, adjuvant, PF; Translations: [Prevnar 20] ANGELA MERA MD [facility] 03-05-2024 tetanus toxoid, redu larry diphtheria toxoid, and acellular pertussis vaccine, adsorbed ANGELA MERA MD [facility] 02-25-2024 RSV vaccine preF3, recombinant ANGELA MERA MD [facility] 01-25-2024 influenza, high dose seasonal, preservative-free; Translations: [Fluad PF Prefilled Syringe ] ANGELA MERA MD [facility] 09-08-2020 SARS-CoV-2 (COVID-19 ) [id number]-[id number] vaccine [facility] Comment on above: Result Comment: 2022: 75 08-11-2020 SARS-CoV-2 (COVID-19 ) mRNA-1273 vaccine ANGELA MERA MD Mariss[facility]ie Andres [facility] Comment on above: Result Comment: 2022: 75 02-28-2013 influenza virus vacc ine, unspecified formulation Rosa Khan MD Work Phone: [facility] Payers Date Payer Category Payer Private Health Insurance [id number] 2024 Unknown [id number] 2023 Self-pay 2023 Unknown [id number] 2023 Unknown [id number] 2023 Unknown [id number] 2021 Medicare [id number] 2017 Medicare [id number] 2017 Medicare AETNA MEDICARE A DVANTAGE AETNA MEDICARE ADVANTAGE PPO [id number] 2017-Present [phone] [address] [place] [address] Medicare [id number]. [id number] 2017 Medicare [id number]. 1.13.248.2. [id number] 1945 Unknown [id number] 2.16.840.1.706512.3.579.2. 297 1945 Unknown [id number] 2.16.840.1.817013.3.579.2. 297 1945 Unknown [id number] 2.16.840.1.831155.3.579.2. 297 1945 Unknown [id number] 2.16.840.1.404467.3.579.2. 297 1945 Unknown [id number] 2.16.840.1.396333.3.579.2. 297 1945 Unknown [id number] 2.16.840.1.937914.3.579.2. 297 1945 Unknown [id number] 2.16.840.1.988176.3.579.2. 297 1945 Unknown [id number] 2.16.840.1.091774.3.579.2. 297 1945 Unknown [id number] 2.16.840.1.850825.3.579.2. 297 1945 Unknown [id number] 2.16.840.1.197427.3.579.2. 627 1945 Unknown [id number] 2.16.840.1.420761.3.579.2. 627 1945 Unknown [id number] 2.16.840.1.430597.3.579.2. 627 1945 Unknown [id number] 2.16.840.1.891550.3.579.2. 627 1945 Unknown [id number] 2.16.840.1.199531.3.579.2. 627 1945 Unknown [id number] 2.16.840.1.811285.3.579.2. 627 1945 Unknown [id number] 2.16.840.1.926835.3.579.2. 627 1945 Unknown [id number] 2.16.840.1.437552.3.579.2. 627 1945 Unknown [id number] 2.16.840.1.154507.3.579.2. 627 1945 Unknown [id number] 2.16.840.1.413974.3.579.2. 627 1945 Unknown [id number] 2.16.840.1.334832.3.579.2. 627 1945 Unknown [id number] 2.16.840.1.403407.3.579.2. 627 Medicare [id number] Medicare [id number] Medicare [id number] Unknown [id number] 2.16.840.1.883794.3.579.2. 462 Unknown [id number] 2.16840.1.535149.3.579.2. 462 Unknown [id number] 2.16840.1.272776.3.579.2. 462 Unknown [id number] 2.16840.1.090886.3.579.2. 462 Social History Date Type Detail Facility Start: 02-19-2019 End: 05-22-2023 Tobacco smoking status NHIS Never smoker [facility] Start: 02-19-2019 End: 02-09-2021 Alcohol intake Current non-drinker of alcohol (finding) [facility] Start: 1945 Sex Assigned At Not on file [facility] Start: 03-18-2019 End: 10-31-2019 Tobacco use and exposure Never used [facility] Start: 04-19-2021 End: 11-23-2021 Alcohol intake Lifetime non-drinker (finding) [facility] Start: 04-19-2021 History SDOH Alcohol Frequency 1 [facility] Start: 12-05-2021 End: 12-15-2021 Exposure to SARS-CoV-2 (event) Not sure [facility] Start: 1945 Sex Assigned At Male [facility] Start: 04-12-2023 End: 05-22-2023 Tobacco smoking status IAIS Unknown if ever smoked [facility] Sexual Orientation Marissa Ann Home Sex Male (finding) [facility] ector Goals Date Patient Goal Desired Activity /State Functional Status Date Assessment Result Facility 04-18-2023 Functional status Chair [facility] Work Phone: Mental Status Date Assessment Result Facility 04-18-2023 Cognitive function Voice/Name [facility] Work Phone: 04-12-2023 Cognitive function Level Of Cons ciousness Awake;Appropriate;Lethargic [facility] Work Phone: Clinical Notes 04-19-2021 to 09-18-2024 Note Date & Type Note Facility 09-18-2024 Evaluation note Diagnosis Onset Date Resolution Heart failure with preserved ejection fraction acute September 18, 2024 1:16pm Coronary arteriosclerosis after percutaneous transluminal coronary angiopla chronic September 18, 2024 1:16pm Essential hypertension chronic Ju 2024 1:16pm Hyperlipidemia chronic September 18, 2024 1:16pm [facility] Work Phone: 1(363) 690-105906-04-2025 Note. MICRO - Microbiology PROCEDURE: Urine Culture [*1] SOURCE: Urine BODY SITE: COLLECTED DATE/TIME: 08/18/2024 16:32 EDT RECEIVED DATE/TIME: 08/18/2024 19:56 EDT START DATE/TIME: 08/18/2024 19:56 EDT FREE TEXT SOURCE: FINAL REPORTS Final Report [] Verified Date/Time/Personnel: 08/20/2024 07:30 EDT No growth at 48 hours. PRELIMINARY REPORTS Preliminary Report [] Verified Date/Time/Personnel: 08/19/2024 08:01 EDT No growth to date Preliminary Report [] Verified Date/Time/Personnel: 08/18/2024 20:59 EDT Specimen received in lab. Performing Locations *1: This test was performed at: [facility], [address] [place] [address], [id number] , [facility]07-21-2024 Note. MICRO - Microbiology PROCEDURE: Urine Culture [*1] SOURCE: Urine, Clean Catch BODY SITE: COLLECTED DATE/TIME: 10/05/2023 16:24 EDT RECEIVED DATE/TIME: 10/05/2023 19:44 EDT START DATE/TIME: 10/05/2023 19:44 EDT FREE TEXT SOURCE: FINAL REPORTS Final Report [] Verified Date/Time/Personnel: 10/07/2023 09:11 EDT 10,000 - 50,000 cfu/ml Zulema albicans Contact Microbiology within 72 hours if further identification is indicated ([id number]). Haswell counts from a single urine are equivocal in determining infection vs. colonization of yeast. Multiple cultures at least 24 hours apart may be helpful in differentiating colonization from infection. PRELIMINARY REPORTS Preliminary Report [] Verified Date/Time/Personnel: 10/06/2023 10:37 EDT No growth to date SUSCEPTIBILITY RESULTS Zulema albicans Antibiotic AZAEL Dilut AZAEL Inter ID Panel Not Not Applicable Applicable Performing Locations *1: This test was performed at: [address], [address] [place], [place] [address]505-20-2023 Note. MICRO - Microbiology PROCEDURE: Urine Culture [*1] SOURCE: Urine, Clean Catch BODY SITE: COLLECTED DATE/TIME: 05/18/2023 17:16 EST RECEIVED DATE/TIME: 05/18/2023 22:01 EST START DATE/TIME: 05/18/2023 22:01 EST FREE TEXT SOURCE: FINAL REPORTS Final Report [] Verified Date/Time/Personnel: 05/20/2023 07:31 EST 50,000 - 100,000 cfu/ml Multiple bacterial morphotypes present. Probable Contamination. Suggest recollection if clinically indicated. PRELIMINARY REPORTS Preliminary Report [] Verified Date/Time/Personnel: 05/19/2023 10:03 EST Culture results pending. Performing Locations *1: This test was performed at: [address], [address] [place] [address])04-18-2023 Discharge summary Author Jesse Slade [facility] April 18, 2023 2:44pm Note Date/Time April 18, 2023 2 :44pm [facility] Medical Records Department [address] [place] [address] Discharge Summary 04/18/23 1443 MR#: [id number] Acct: [id number] Name: FREDY BOX Rep #:[id number] : 1945 78 From: Jesse Slade DO PCP: Dr. Angela Mera MD Status:ADM IN Location: [place] [address] Providers Date of Admission: 04/12/23 Primary Care Physician: Dr. Angela Mera MD Consultations 04/12/23 13:39 Consult: Cardiology Routine Consulting Provider: Jack Fuller Reason for Consult: nonstemi EMERGENT Consult: No MD Notified: Yes Date Notified: 04/12/23 Time Notified: 13:01 Method of Notification: Text 04/13/23 17:03 Consult: Nephrology Routine Consulting Provider: Gagandeep Felder Reason for Consult: DIAN, rhabdomyolysis EMERGENT Consult: No MD Notified: Yes Date Notified: 04/13/23 Time Notified: 17:03 Method of Notification: Text Reason For Visit: RHABDOMYOLYSIS NONSTEMI Diagnosis Discharge Diagnosis (1) Cardiac enzymes elevated: Status: Acute Code(s): R74.8 - Abnormal levels of other serum enzymes (2) Rhabdomyolysis: Status: Acute Code(s): M62.82 - Rhabdomyolysis Qualifiers: Rhabdomyolysis type: traumatic Encounter type: initial encounter Qualified Code(s): T79.6XXA - Traumatic ischemia of muscle, initial encounter Plan Rhabdomyolysis due to mechanical fall * Patient states he fell on the floor. He does not remember whether he passed out or not but knows he was on the floor at least overnight. CPK is more than 28,000. * Creatinine is also elevated but has trended down to 2.53. * CPK is also down to 3011 * cut down fluids to 150cc/hr. NS. * PT/OT On board. Fall precautions. Non-STEMI * Likely a type II non-STEMI (demand ischemia) in light of DIAN and patient's mechanical fall. Initial troponin was 3604 and trended down to 3095 then 2612. * EKG showed no acute ST changes. * cardiology signed off * 2D echo showed EF of 70%, unable to assess diastolic dyfsunction; no regional wall motion abnormalities seen. * aspirin 81 mg daily. DIAN * resolved. Admission creatinine 3.27 down to to 1.23 * Baseline creatinine not known. Likely prerenal due to patient being on the floor for about 12 hours and also CPK being elevated in setting of rhabdomyolysis. * Nephrology following * DC IVF. Hematoma of right jaw * patient has a nontender swelling on the right jaw, with ecchmyosis ovr the right jaw , extending down to his neck * soft tissue CT showed moderate dense stranding in the right face and neck, concerning for hemorrhage and contusion in a patient with a recent history of trauma. * Hb has trended down to 8.5, from 13.6 on admission. however, platelets and wbc have also trended down, and so may be due to hemodilution as he has been aggressively hydrated o/a of DIAN and rhabdomyolysis * will monitor for now. If Acute blood loss anemia * Secondary to hematoma but also likely due to hemoconcentration as patient appeared to be dehydrated upon arrival. * Dropped from 13.6 (likely hemoconcentrated), but stable at 8.4. Influenza A infection: on 2L of oxygen by nasal canula. on tamiflu, renally adjusted dose. Hypotension: * resolved. 2/2 dehydration Chronic conditions: * History of CAD s/p CABG: On aspirin and statin. * Dementia: On donepezil * Hypertension: Hold losartan and hydrochlorothiazide on account of DIAN and rhabdomyolysis. IV hydralazine as needed. Also on metoprolol. * BPH: On Flomax DVT prophylaxis: Heparin; dc heparin in light of jaw hematoma and drop in Hb CODE STATUS: Full code Disposition: SNF. Medically stable. Patient and family decided to [facility] but would not have any beds available until the . Medications at Discharge Home Medications albuterol sulfate 90 mcg/actuation aerosol inhaler 2 puff inhalation Q4H PRN wheezing 04/12/23 allopurinol 300 mg tablet 300 mg PO DAILY gout 04/12/23 aspirin 81 mg capsule 81 mg PO DAILY heart health 04/12/23 atorvastatin 20 mg tablet 20 mg PO DAILY cholesterol 04/12/23 benzonatate 100 mg capsule 100 mg PO TID PRN PRN cough 04/12/23 cetirizine 10 mg tablet 10 mg PO DAILY PRN allergy symptoms 04/12/23 donepezil 10 mg tablet 10 mg PO QHS dementia 04/12/23 memantine 5 mg tablet 5 mg PO BID dementia 04/12/23 methylprednisolone 4 mg tablets in a dose pack 4 mg PO steriod 04/12/23 metoprolol tartrate 25 mg tablet 25 mg PO BID blood pressure 04/12/23 tamsulosin 0.4 mg capsule 0.4 mg PO DAILY urination 04/12/23 timolol maleate 0.5 % eye drops 1 drp ophthalmic (eye) BID eye health 04/12/23 food supplemt, lactose-reduced 0.08 gram-1.5 kcal/mL oral liquid (Ensure Plus High Protein) 120 ml PO 4X/DAY #0 mL 04/18/23 Hospital Course Operations None Procedures None Summary of Care Provided Minutes Spent on Discharge: 32 Medical Records Data Medical Nutrition Assessment Dietitian: Malnutrition Criteria Met Start: 04/13/23 11:51 Freq: Status: Active Protocol: Document 04/13/23 11:51 SLA (Rec: 04/13/23 11:51 SLA Desktop) Nutrition Malnutrition Evidence of Malnutrition Exists Yes Malnutrition (severe): Acute Illness/Injury Evidenced By Suboptimal Energy Intake ( Severe),Weight Loss (Severe) Clinical Problem Acute Disease or Injury Related Malnutrition Etiology related to acute illness and inadequate energy intake Signs/Symptoms as evidenced by pt po intake meeting <50% of est nutritional needs and 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 Weight / BMI Weight Weight: 89.5 kg Body Mass Index (BMI) 29.9 ABG / Lab / Microbiology Data 04/17/23 07:14 04/17/23 07:14 Microbiology: Microbiology 04/12/23 11:00 Blood Culture (Wb) - Right Wrist Blood Culture - Final No growth in 5 days. 04/12/23 11:05 Blood Culture (Wb) - Right Hand Blood Culture - Final No growth in 5 days. 04/12/23 11:18 Mucosa - Nasopharyngeal SARS-CoV-2, Influenza & RSV (PCR) - Final Influenzae A Meaningful Use Info Meaningful Use Diagnoses (Choose all that apply): None applicable Discharge Plan Admission Admit Date/Time: 01/25/24 12:54 Primary Reason for Your Visit: rhabdomyolysis. DIAN Attending Provider: Jesse Slade Primary Care Provider: Angela Mera Consulting Providers: Jack Fuller; Gagandeep Felder; Tesha Layne Discharge Orders/Prescriptions Prescriptions: New Ensure Plus High Protein 0.08 gram-1.5 kcal/mL Liquid 120 ml PO 4X/DAY Qty: 0 0RF Continued albuterol sulfate 90 mcg/actuation HFA aerosol inhaler 2 puff INHALATION Q4H PRN (Reason: wheezing) Patient Comments: INHALE TWO PUFFS EVERY 4 HOURS NEEDED FOR WHEEZING allopurinol 300 mg tablet 300 mg PO DAILY Patient Comments: take 1 tablet by mouth once daily atorvastatin 20 mg tablet 20 mg PO DAILY Patient Comments: take 1 tablet by mouth once daily benzonatate 100 mg capsule 100 mg PO TID PRN PRN (Reason: cough) Patient Comments: take 1 capsule by mouth three times a day for 10 days if needed for cough cetirizine 10 mg tablet 10 mg PO DAILY PRN (Reason: allergy symptoms) Patient Comments: take 1 tablet by mouth once daily if needed for ALLERGY SYMPTOMS donepezil 10 mg tablet 10 mg PO QHS Patient Comments: take 1 tablet by mouth at bedtime memantine 5 mg tablet 5 mg PO BID Patient Comments: take 1 tablet by mouth twice a day metoprolol tartrate 25 mg tablet 25 mg PO BID Patient Comments: take 1 tablet by mouth twice a day tamsulosin 0.4 mg capsule 0.4 mg PO DAILY Patient Comments: take 1 capsule by mouth once daily timolol maleate 0.5 % drops 1 drp ophthalmic (eye) BID Patient Comments: instill 1 drop into both eyes twice a day aspirin 81 mg capsule 81 mg PO DAILY Held methylprednisolone 4 mg tablets,dose pack 4 mg PO Hold Instructions: Patient Comments: patient had not started taking yet. new prescription Discontinued losartan-hydrochlorothiazide 50-12.5 mg tablet 1 tab PO DAILY Patient Comments: take 1 tablet by mouth once daily Referrals / Follow Up: Angela Mera MD [Primary Care Provider] - Yojana Ugarte MANAGER AGENCY, MANAGER [facility] [Med Staff - Adv Practice Prof] - 04/23/23 11:00 am Disposition Disposition (needs filled in before D/C Order can be placed): Longterm Facility Charges/Coding Visit Charges Inpatient E&M: 52578 Disch Hosp >30min 04/18/23 1444 <Electronically signed by Jesse Slade DO> Cosigner Signature (if applicable): CC: Dr. Jesse Slade DO; Dr. Angela Mera MD~ Signed [facility] Work Phone: 1(874) 753-594501-31-2024 Discharge summary Author Jesse Slade [facility] April 18, 2023 12:44pm Note Date/Time April 18, 2023 1 2:42pm [facility] Medical Records Department [address] [place] [address] Transfer to [facility] MR#: [id number] Acct: [id number] Name: FREDY BOX Rep #:[id number] : 1945 78 From: Jesse Slade DO PCP: Dr. Angela Mera MD Status:ADM IN Certification of patient admission REQUIRED AT TIME OF ADMISSION. I CERTIFY THAT POST-HOSPITAL ECF SERVICES ARE REQUIRED TO BE GIVEN ON AN IN-PATIENT BASIS BECAUSE OF THE ABOVE NAMED PATIENT'S NEED FOR [facility] CARE ON A CONTINUING BASIS FOR THE CONDITION(S) FOR WHICH HE/SHE WAS RECEIVING IN-PATIENT HOSPITAL SERVICES PRIOR TO HIS/HER TRANSFER TO THE F. 04/18/23 1244<Electronically signed by Jesse Slade DO> Diet Diet Order/Speech Therapy: 04/13/23 11:54 Diet: Regular - General Dietary Modifications:: No Added Salt Is pt able to select menu?: Yes Therapies Physical Therapy: Eval and Treat Occupational Therapy: Eval and Treat Problem/Diagnosis (1) Cardiac enzymes elevated: Status: Acute Code(s): R74.8 - Abnormal levels of other serum enzymes (2) Rhabdomyolysis: Status: Acute Code(s): M62.82 - Rhabdomyolysis Plan Rhabdomyolysis due to mechanical fall * Patient states he fell on the floor. He does not remember whether he passed out or not but knows he was on the floor at least overnight. CPK is more than 28,000. * Creatinine is also elevated but has trended down to 2.53. * CPK is also down to 3011 * cut down fluids to 150cc/hr. NS. * PT/OT On board. Fall precautions. Non-STEMI * Likely a type II non-STEMI (demand ischemia) in light of DIAN and patient's mechanical fall. Initial troponin was 3604 and trended down to 3095 then 2612. * EKG showed no acute ST changes. * cardiology signed off * 2D echo showed EF of 70%, unable to assess diastolic dyfsunction; no regional wall motion abnormalities seen. * aspirin 81 mg daily. DIAN * resolved. Admission creatinine 3.27 down to to 1.23 * Baseline creatinine not known. Likely prerenal due to patient being on the floor for about 12 hours and also CPK being elevated in setting of rhabdomyolysis. * Nephrology following * DC IVF. Hematoma of right jaw * patient has a nontender swelling on the right jaw, with ecchmyosis ovr the right jaw , extending down to his neck * soft tissue CT showed moderate dense stranding in the right face and neck, concerning for hemorrhage and contusion in a patient with a recent history of trauma. * Hb has trended down to 8.5, from 13.6 on admission. however, platelets and wbc have also trended down, and so may be due to hemodilution as he has been aggressively hydrated o/a of DIAN and rhabdomyolysis * will monitor for now. If Acute blood loss anemia * Secondary to hematoma but also likely due to hemoconcentration as patient appeared to be dehydrated upon arrival. * Dropped from 13.6 (likely hemoconcentrated), but stable at 8.4. Influenza A infection: on 2L of oxygen by nasal canula. on tamiflu, renally adjusted dose. Hypotension: * resolved. 2/2 dehydration Chronic conditions: * History of CAD s/p CABG: On aspirin and statin. * Dementia: On donepezil * Hypertension: Hold losartan and hydrochlorothiazide on account of DIAN and rhabdomyolysis. IV hydralazine as needed. Also on metoprolol. * BPH: On Flomax DVT prophylaxis: Heparin; dc heparin in light of jaw hematoma and drop in Hb CODE STATUS: Full code Disposition: SNF. Medically stable. Patient and family decided to [facility] but would not have any beds available until the . Allergies/Procedures Done in Hospital Allergies No Known Allergies Allergy (Verified 04/12/23 11:22) Type of Care/Length of Stay Estimated LOS: Convalescent Care Less Than 30 days Type of Care Needed: Skilled Rehab Potential: Fair Prognosis: Good Additional Orders/Day of Discharge Day of Discharge: 04/18/23 Dietary and Speech Recommendations Dietitian Recommendations/Changes: Will change diet to Regular - ROBERT to liberalize diet due to poor PO intakes but will limit sodium intake due to recent NSTMI. Will order 4 oz ensure plus high protein 4x/day w/ medpass for increased nutrition if consumed. Discharge Plan Admission Admit Date/Time: 04/12/23 12:54 Primary Reason for Your Visit: rhabdomyolysis. DIAN Attending Provider: Jesse Slade Primary Care Provider: Angela Mera Consulting Providers: Jack Fuller; Gagandeep Felder; Tesha Layne Discharge Orders/Prescriptions Prescriptions: New Ensure Plus High Protein 0.08 gram-1.5 kcal/mL Liquid 120 ml PO 4X/DAY Qty: 0 0RF Continued albuterol sulfate 90 mcg/actuation HFA aerosol inhaler 2 puff INHALATION Q4H PRN (Reason: wheezing) Patient Comments: INHALE TWO PUFFS EVERY 4 HOURS NEEDED FOR WHEEZING allopurinol 300 mg tablet 300 mg PO DAILY Patient Comments: take 1 tablet by mouth once daily atorvastatin 20 mg tablet 20 mg PO DAILY Patient Comments: take 1 tablet by mouth once daily benzonatate 100 mg capsule 100 mg PO TID PRN PRN (Reason: cough) Patient Comments: take 1 capsule by mouth three times a day for 10 days if needed for cough cetirizine 10 mg tablet 10 mg PO DAILY PRN (Reason: allergy symptoms) Patient Comments: take 1 tablet by mouth once daily if needed for ALLERGY SYMPTOMS donepezil 10 mg tablet 10 mg PO QHS Patient Comments: take 1 tablet by mouth at bedtime memantine 5 mg tablet 5 mg PO BID Patient Comments: take 1 tablet by mouth twice a day metoprolol tartrate 25 mg tablet 25 mg PO BID Patient Comments: take 1 tablet by mouth twice a day tamsulosin 0.4 mg capsule 0.4 mg PO DAILY Patient Comments: take 1 capsule by mouth once daily timolol maleate 0.5 % drops 1 drp ophthalmic (eye) BID Patient Comments: instill 1 drop into both eyes twice a day aspirin 81 mg capsule 81 mg PO DAILY Held methylprednisolone 4 mg tablets,dose pack 4 mg PO Hold Instructions: Patient Comments: patient had not started taking yet. new prescription Discontinued losartan-hydrochlorothiazide 50-12.5 mg tablet 1 tab PO DAILY Patient Comments: take 1 tablet by mouth once daily Referrals / Follow Up: Angela Mera MD [Primary Care Provider] - Yojana Ugarte MANAGER AGENCY, MANAGER AGENCY-C [Med Staff - [facility] Prof] - 04/23/23 11:00 am Disposition Disposition (needs filled in before D/C Order can be placed): Longterm Facility (2) Rhabdomyolysis Qualifiers: Rhabdomyolysis type: traumatic Encounter type: initial encounter Qualified Code(s): T79.6XXA - Traumatic ischemia of muscle, initial encounter 04/18/23 1244 <Electronically signed by Jesse Slade DO> Cosigner Signature (if applicable): CC: Dr. Gagandeep Felder MD; Dr. Jack Fuller MD; Dr. Tesha Layne MD; Dr. Angela Mera MD ~ [facility] Work Phone: [phone]) 913-971701-31-2024 Progress note Author Jesse [facility] April 18, 2023 12:41pm Note Date/Time April 18, 2023 7 :59am [facility] Medical Records Department [address] [place] [address] Progress Note - Hospitalist 04/18/23 0758 MR#: [id number] Acct: [id number] Name: FREDY BOX Rep #:[id number] : 1945 78 From: Jesse Slade DO PCP: Dr. Angela Mera MD Status:ADM IN Location: [place] [address] Subjective Subjective Feels better. Objective Data Objective Data Vital Signs: Vital Signs Temp Pulse Resp BP Pulse Ox O2 Del Method O2 Flow Rate 36.6 C 65 14 120/66 94 CPAP 2 04/18/23 03:00 04/18/23 03:00 04/18/23 03:00 04/18/23 03:00 04/18/23 03:00 04/18/23 03:00 04/16/23 09:12 Oxygen Flow Rate (L/min) 2 Oxygen Delivery Method CPAP Weight: 89.5 kg Body Mass Index (BMI) 29.9 Intake & Output: Intake and Output for Last 24 Hours 01/29/24 01/30/24 01/31/24 23:59 23:59 23:59 Intake Total 220 / 420 440 / 680 360 / 360 Output Total 500 / 1000 800 / 1300 1150 / 1150 Balance -280 / -580 -360 / -620 -790 / -790 Medical Nutrition Assessment Dietitian: Malnutrition Criteria Met Start: 04/13/23 11:51 Freq: Status: Active Protocol: Document 04/13/23 11:51 SLA (Rec: 04/13/23 11:51 SLA Desktop) Nutrition Malnutrition Evidence of Malnutrition Exists Yes Malnutrition (severe): Acute Illness/Injury Evidenced By Suboptimal Energy Intake ( Severe),Weight Loss (Severe) Clinical Problem Acute Disease or Injury Related Malnutrition Etiology related to acute illness and inadequate energy intake Signs/Symptoms as evidenced by pt po intake meeting <50% of est nutritional needs and 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 Lab / Micro Data 04/17/23 07:14 04/17/23 07:14 Labs: Laboratory Results - last 24 hr 04/17/23 07:14: WBC 4.5, RBC 2.40 L, Hgb 8.1 L, Hct 25.4 L, MCV 105.8 H, MCH 33.8 H, MCHC 31.9 L, RDW Std Deviation 56.6 H, RDW Coeff of Ese 14.5, Plt Count 102 L, MPV 10.4, Immature Gran % (Auto) 2.000 H, Neut % (Auto) 71.8 H, Lymph % (Auto) 15.3 L, [place] % (Auto) 9.8, Eos % (Auto) 0.9, Baso % (Auto) 0.2, Absolute Neuts (auto) 3.2, Absolute Lymphs (auto) 0.69 L, Nucleated RBC % 0.7, Sodium 145, Potassium 3.9, Chloride 119 H, Carbon Dioxide 24.0, Anion Gap 2 L, BUN 32 H, Creatinine 1.23, Estim Creat Clear Calc 53.79, Est GFR (MDRD) Af Amer 73, Est GFR (MDRD) Non-Af 60, BUN/Creatinine Ratio 26.0 H, Glucose 106, Calcium 8.1 L Micro: Microbiology 04/12/23 11:00 Blood Culture (Wb) - Right Wrist Blood Culture - Final No growth in 5 days. 04/12/23 11:05 Blood Culture (Wb) - Right Hand Blood Culture - Final No growth in 5 days. 04/12/23 11:18 Mucosa - Nasopharyngeal SARS-CoV-2, Influenza & RSV (PCR) - Final Influenzae A Rhythm Strip Rhythm Strip: PSVT otherwise normal sinus rhythm Physical Exam Const alert and no apparent distress Constitutional Narrative: up in chair w t-shirt on. Neck Neck Narrative: ecchymosis under chin. Resp normal respiratory effort, no retractions, no use of accessory muscles and clearto auscultation bilaterally Cardio regular rate, regular rhythm, S1 normal heart sound and S2 normal heart sound GI normal to inspection, nondistended, normoactive bowel sounds and soft to palpation Extremity normal to inspection Assessment & Plan Assessment/Plan (1) Cardiac enzymes elevated: (2) Rhabdomyolysis: QUALIFIERS: Encounter type: initial encounter Rhabdomyolysis type: traumatic Qualified Code(s): T79.6XXA - Traumatic ischemia of muscle, initial encounter PLAN: Plan Rhabdomyolysis due to mechanical fall * Patient states he fell on the floor. He does not remember whether he passed out or not but knows he was on the floor at least overnight. CPK is more than 28,000. * Creatinine is also elevated but has trended down to 2.53. * CPK is also down to 3011 * cut down fluids to 150cc/hr. NS. * PT/OT On board. Fall precautions. Non-STEMI * Likely a type II non-STEMI (demand ischemia) in light of DIAN and patient's mechanical fall. Initial troponin was 3604 and trended down to 3095 then 2612. * EKG showed no acute ST changes. * cardiology signed off * 2D echo showed EF of 70%, unable to assess diastolic dyfsunction; no regional wall motion abnormalities seen. * aspirin 81 mg daily. DIAN * resolved. Admission creatinine 3.27 down to to 1.23 * Baseline creatinine not known. Likely prerenal due to patient being on the floor for about 12 hours and also CPK being elevated in setting of rhabdomyolysis. * Nephrology following * DC IVF. Hematoma of right jaw * patient has a nontender swelling on the right jaw, with ecchmyosis ovr the right jaw , extending down to his neck * soft tissue CT showed moderate dense stranding in the right face and neck, concerning for hemorrhage and contusion in a patient with a recent history of trauma. * Hb has trended down to 8.5, from 13.6 on admission. however, platelets and wbc have also trended down, and so may be due to hemodilution as he has been aggressively hydrated o/a of DIAN and rhabdomyolysis * will monitor for now. If Acute blood loss anemia * Secondary to hematoma but also likely due to hemoconcentration as patient appeared to be dehydrated upon arrival. * Dropped from 13.6 (likely hemoconcentrated), but stable at 8.4. Influenza A infection: on 2L of oxygen by nasal canula. on tamiflu, renally adjusted dose. Hypotension: * resolved. 2/2 dehydration Chronic conditions: * History of CAD s/p CABG: On aspirin and statin. * Dementia: On donepezil * Hypertension: Hold losartan and hydrochlorothiazide on account of DIAN and r habdomyolysis. IV hydralazine as needed. Also on metoprolol. * BPH: On Flomax DVT prophylaxis: Heparin; dc heparin in light of jaw hematoma and drop in Hb CODE STATUS: Full code Disposition: SNF. Medically stable. Patient and family decided to [facility] but would not have any beds available until the . Charges/Coding Visit Charges Inpatient E&M: 28891 Subs Hosp L2 04/18/23 1241 <Electronically signed by Jesse Slade DO> Cosigner Signature (if applicable): CC: ~ Signed [facility] Work Phone: 1(360) 236-639701-30-2024 Progress note Author Jesse Slade [facility] April 17, 2023 1:11pm Note Date/Time April 17, 2023 8 :32am [facility] Medical Records Department [address] [place] [address] Progress Note - Hospitalist 04/17/23 0832 MR#: [id number] Acct: [id number] Name: FREDY BOX Rep #:[id number] : 1945 78 From: Jesse Slade DO PCP: Dr. Angela Mera MD Status:ADM IN Location: [place] [address] Subjective Subjective Weak voice ongoing. Still feeling weak. Objective Data Objective Data Vital Signs: Vital Signs Temp Pulse Resp BP Pulse Ox O2 Del Method O2 Flow Rate 36.0 C L 70 14 139/59 H 94 CPAP 2 04/17/23 03:00 04/17/23 03:00 04/17/23 03:00 04/17/23 03:00 04/17/23 03:00 04/17/23 03:00 04/16/23 09:12 Oxygen Flow Rate (L/min) 2 Oxygen Delivery Method CPAP Weight: 89.5 kg Body Mass Index (BMI) 29.9 Intake & Output: Intake and Output for Last 24 Hours 04/15/23 04/16/23 04/17/23 23:59 23:59 23:59 Intake Total 4049.58 / 4049.58 220 / 420 440 / 440 Output Total 2400 / 2400 500 / 1000 800 / 800 Balance 1649.58 / 1649.58 -280 / -580 -360 / -360 Medical Nutrition Assessment Dietitian: Malnutrition Criteria Met Start: 04/13/23 11:51 Freq: Status: Active Protocol: Document 04/13/23 11:51 SLA (Rec: 04/13/23 11:51 SLA Desktop) Nutrition Malnutrition Evidence of Malnutrition Exists Yes Malnutrition (severe): Acute Illness/Injury Evidenced By Suboptimal Energy Intake ( Severe),Weight Loss (Severe) Clinical Problem Acute Disease or Injury Related Malnutrition Etiology related to acute illness and inadequate energy intake Signs/Symptoms as evidenced by pt po intake meeting <50% of est nutritional needs and 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 Lab / Micro Data 04/17/23 07:14 04/17/23 07:14 Labs: Laboratory Results - last 24 hr 04/16/23 09:25: Urine Color Yellow, Urine Clarity Clear, Urine pH 6.0, Ur Specific [place] 1.010, Urine Protein 30 H, Urine Glucose (UA) Normal, Urine Ketones Negative, Urine Occult Blood 150 H, Urine Nitrite Negative, Urine Bilirubin Negative, Urine Urobilinogen Normal, Ur Leukocyte Esterase 500 H, Urine RBC 10-25 SEEN, Urine WBC 25-50 SEEN, Ur Squamous Epith Cells 0 SEEN, Urine Bacteria 1+, Urine Mucus 0 SEEN, Urine Yeast 2+ Micro: Microbiology 04/12/23 11:00 Blood Culture (Wb) - Right Wrist Blood Culture - Preliminary No growth in 48 hours. 04/12/23 11:05 Blood Culture (Wb) - Right Hand Blood Culture - Preliminary No growth in 48 hours. 04/12/23 11:18 Mucosa - Nasopharyngeal SARS-CoV-2, Influenza & RSV (PCR) - Final Influenzae A Rhythm Strip Rhythm Strip: PSVT otherwise normal sinus rhythm Physical Exam Const alert and no apparent distress Neck Neck Narrative: ecchymosis under chin Resp no use of accessory muscles Extremity normal to inspection and full ROM Neuro Sensorium / Orientation: awake and alert Assessment & Plan Assessment/Plan (1) Cardiac enzymes elevated: (2) Rhabdomyolysis: QUALIFIERS: Encounter type: initial encounter Rhabdomyolysis type: traumatic Qualified Code(s): T79.6XXA - Traumatic ischemia of muscle, initial encounter PLAN: Plan Rhabdomyolysis due to mechanical fall * Patient states he fell on the floor. He does not remember whether he passed out or not but knows he was on the floor at least overnight. CPK is more than 28,000. * Creatinine is also elevated but has trended down to 2.53. * CPK is also down to 3011 * cut down fluids to 150cc/hr. NS. * PT/OT On board. Fall precautions. Non-STEMI * Likely a type II non-STEMI (demand ischemia) in light of DIAN and patient's mechanical fall. Initial troponin was 3604 and trended down to 3095 then 2612. * EKG showed no acute ST changes. * cardiology signed off * 2D echo showed EF of 70%, unable to assess diastolic dyfsunction; no regional wall motion abnormalities seen. * aspirin 81 mg daily. DIAN * resolved. Admission creatinine 3.27 down to to 1.23 * Baseline creatinine not known. Likely prerenal due to patient being on the floor for about 12 hours and also CPK being elevated in setting of rhabdomyolysis. * Nephrology following * DC IVF. Hematoma of right jaw * patient has a nontender swelling on the right jaw, with ecchmyosis ovr the right jaw , extending down to his neck * soft tissue CT showed moderate dense stranding in the right face and neck, concerning for hemorrhage and contusion in a patient with a recent history of trauma. * Hb has trended down to 8.5, from 13.6 on admission. however, platelets and wbc have also trended down, and so may be due to hemodilution as he has been aggressively hydrated o/a of DIAN and rhabdomyolysis * will monitor for now. If Acute blood loss anemia * Secondary to hematoma but also likely due to hemoconcentration as patient appeared to be dehydrated upon arrival. * Dropped from 13.6 (likely hemoconcentrated), but stable at 8.4. Influenza A infection: on 2L of oxygen by nasal canula. on tamiflu, renally adjusted dose. Hypotension: * resolved. 2/2 dehydration Chronic conditions: * History of CAD s/p CABG: On aspirin and statin. * Dementia: On donepezil * Hypertension: Hold losartan and hydrochlorothiazide on account of DIAN and rhabdomyolysis. IV hydralazine as needed. Also on metoprolol. * BPH: On Flomax DVT prophylaxis: Heparin; dc heparin in light of jaw hematoma and drop in Hb CODE STATUS: Full code Disposition: SNF. Medically stable. Patient and family decided to [facility] but would not have any beds available until the . Charges/Coding Visit Charges Inpatient E&M: 62083 Subs Hosp L2 04/17/23 1311 <Electronically signed by Jesse Slade DO> Cosigner Signature (if applicable): CC: ~ Signed [facility] Work Phone: [phone] 652-938801-30-2024 Progress note Author Gagandeep Felder [facility] April 17, 2023 1:01pm Note Date/Time April 17, 2023 1 0:15am [facility] Medical Records Department [address] [place] [address] Progress Note - Nephrology 04/17/23 1010 MR#: [id number] Acct: [id number] Name: FREDY BOX Rep #:[id number] : 1945 78 From: Halie BRIGHT PCP: Dr. Angela Mera MD Status:ADM IN Location: [place] [address] Documented by User: DEANGELO Yo 04/17/23 10:15 Subjective Subjective No overnight events, no complaints. Objective Data Objective Data Vital Signs: Vital Signs Temp Pulse Resp BP Pulse Ox O2 Del Method O2 Flow Rate 96.8 F L 70 14 139/59 H 93 Room Air 2 04/17/23 03:00 04/17/23 03:00 04/17/23 03:00 04/17/23 03:00 04/17/23 07:54 04/17/23 07:54 04/16/23 09:12 Oxygen Flow Rate (L/min) 2 Oxygen Delivery Method Room Air Weight: 89.5 kg Body Mass Index (BMI) 29.9 Intake & Output: Intake and Output for Last 24 Hours 04/15/23 04/16/23 04/17/23 23:59 23:59 23:59 Intake Total 4049.58 / 4049.58 220 / 420 440 / 440 Output Total 2400 / 2400 500 / 1000 800 / 800 Balance 1649.58 / 1649.58 -280 / -580 -360 / -360 Medical Nutrition Assessment Dietitian: Malnutrition Criteria Met Start: 04/13/23 11:51 Freq: Status: Active Protocol: Document 04/13/23 11:51 SLA (Rec: 04/13/23 11:51 SLA Desktop) Nutrition Malnutrition Evidence of Malnutrition Exists Yes Malnutrition (severe): Acute Illness/Injury Evidenced By Suboptimal Energy Intake ( Severe),Weight Loss (Severe) Clinical Problem Acute Disease or Injury Related Malnutrition Etiology related to acute illness and inadequate energy intake Signs/Symptoms as evidenced by pt po intake meeting <50% of est nutritional needs and 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 Lab / Micro Data 04/17/23 07:14 04/17/23 07:14 Labs: Laboratory Results - last 24 hr 04/17/23 07:14: WBC 4.5, RBC 2.40 L, Hgb 8.1 L, Hct 25.4 L, MCV 105.8 H, MCH 33.8 H, MCHC 31.9 L, RDW Std Deviation 56.6 H, RDW Coeff of Ese 14.5, Plt Count 102 L, MPV 10.4, Immature Gran % (Auto) 2.000 H, Neut % (Auto) 71.8 H, Lymph % (Auto) 15.3 L, [place] % (Auto) 9.8, Eos % (Auto) 0.9, Baso % (Auto) 0.2, Absolute Neuts (auto) 3.2, Absolute Lymphs (auto) 0.69 L, Nucleated RBC % 0.7, Sodium 145, Potassium 3.9, Chloride 119 H, Carbon Dioxide 24.0, Anion Gap 2 L, BUN 32 H, Creatinine 1.23, Estim Creat Clear Calc 53.79, Est GFR (MDRD) Af Amer 73, Est GFR (MDRD) Non-Af 60, BUN/Creatinine Ratio 26.0 H, Glucose 106, Calcium 8.1 L Micro: Microbiology 04/12/23 11:00 Blood Culture (Wb) - Right Wrist Blood Culture - Preliminary No growth in 48 hours. 04/12/23 11:05 Blood Culture (Wb) - Right Hand Blood Culture - Preliminary No growth in 48 hours. 04/12/23 11:18 Mucosa - Nasopharyngeal SARS-CoV-2, Influenza & RSV (PCR) - Final Influenzae A Rhythm Strip Rhythm Strip: PSVT otherwise normal sinus rhythm Physical Exam Narrative Alert awake oriented x 3 no obvious distress s1s2 no murmurs lungs clear abdomen soft no edema Assessment & Plan Assessment/Plan (1) Rhabdomyolysis: QUALIFIERS: Encounter type: initial encounter Rhabdomyolysis type: traumatic Qualified Code(s): T79.6XXA - Traumatic ischemia of muscle, initial encounter (2) DIAN (acute kidney injury): PLAN: - Nonoliguric, mildly hypovolemic DIAN with unknown baseline creatinine. DIAN most likely due to rhabdomyolysis and hypotension. Creatinine is trending down. Creatinine 3.2 on admission and today creatinine is 1.23. No acute indication for BILL SORTER. Potassium and bicarb normal. - CPK 28,000 on admission and has improved to 3000. Off IV fluids. - Blood pressures acceptable On metoprolol. - Was on Tamiflu for influenza A. - discharge planning in progress Documented by User: Dr. Gagandeep Felder MD 04/17/23 13:01 Objective Data Lab / Micro Data 04/17/23 07:14 04/17/23 07:14 Assessment & Plan Assessment/Plan (1) Rhabdomyolysis: QUALIFIERS: Encounter type: initial encounter Rhabdomyolysis type: traumatic Qualified Code(s): T79.6XXA - Traumatic ischemia of muscle, initial encounter (2) DIAN (acute kidney injury): PLAN: - Nonoliguric, mildly hypovolemic DIAN with unknown baseline creatinine. DIAN most likely due to rhabdomyolysis and hypotension. Creatinine is trending down. Creatinine 3.2 on admission and today creatinine is 1.23. No acute indication for BILL SORTER. Potassium and bicarb normal. - CPK 28,000 on admission and has improved to 3000. Off IV fluids. - Blood pressures acceptable On metoprolol. - Was on Tamiflu for influenza A. - discharge planning in progress Attending addendum cr is better. CK is better 04/17/23 1015 <Electronically signed by Halie BRIGHT> Cosigner Signature (if applicable): 04/17/23 1301 <Electronically signed by Gagandeep Felder MD> CC: ~ Signed [facility] Work Phone: 1(300) 746-923301-29-2024 Progress note Author Jesse Slade [facility] April 16, 2023 2:24pm Note Date/Time April 16, 2023 9 :30am [facility] Medical Records Department [address] [place] [address] Progress Note - Hospitalist 04/16/23 0922 MR#: [id number] Acct: [id number] Name: FREDY BOX Rep #:[id number] : 1945 78 From: Jesse Slade DO PCP: Dr. Angela Mera MD Status:ADM IN Location: [place] [address] Subjective Subjective Feeling very weak. Walking to and from the bathroom with a walker and assistance was like Misaelia. Objective Data Objective Data Vital Signs: Vital Signs Temp Pulse Resp BP Pulse Ox O2 Del Method O2 Flow Rate 36.8 C 74 16 145/71 H 95 Room Air 2 04/16/23 09:12 04/16/23 09:12 04/16/23 09:12 04/16/23 09:12 04/16/23 09:17 04/16/23 09:17 04/16/23 09:12 Oxygen Flow Rate (L/min) 2 Oxygen Delivery Method Room Air Weight: 89.5 kg Body Mass Index (BMI) 29.9 Intake & Output: Intake and Output for Last 24 Hours 04/14/23 04/15/23 04/16/23 23:59 23:59 23:59 Intake Total 4630.00 / 4750.00 4049.58 / 4049.58 220 / 220 Output Total 1625 / 2025 2400 / 2400 500 / 500 Balance 3005.00 / 2725.00 1649.58 / 1649.58 -280 / -280 Medical Nutrition Assessment Dietitian: Malnutrition Criteria Met Start: 04/13/23 11:51 Freq: Status: Active Protocol: Document 04/13/23 11:51 SLA (Rec: 04/13/23 11:51 SLA Desktop) Nutrition Malnutrition Evidence of Malnutrition Exists Yes Malnutrition (severe): Acute Illness/Injury Evidenced By Suboptimal Energy Intake ( Severe),Weight Loss (Severe) Clinical Problem Acute Disease or Injury Related Malnutrition Etiology related to acute illness and inadequate energy intake Signs/Symptoms as evidenced by pt po intake meeting <50% of est nutritional needs and 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 Lab / Micro Data 04/16/23 05:38 04/16/23 05:38 Labs: Laboratory Results - last 24 hr 04/16/23 05:38: WBC 4.2 L, RBC 2.49 L, Hgb 8.4 L, Hct 25.7 L, MCV 103.2 H, MCH 33.7 H, MCHC 32.7, RDW Std Deviation 55.1 H, RDW Coeff of Ese 14.6, Plt Count 86L, MPV 10.2, Immature Gran % (Auto) 0.700, Neut % (Auto) 76.5 H, Lymph % (Auto) 13.9 L, [place] % (Auto) 8.2, Eos % (Auto) 0.5, Baso % (Auto) 0.2, Absolute Neuts (auto) 3.2, Absolute Lymphs (auto) 0.58 L, Nucleated RBC % 0, Sodium 147 H, Potassium 4.3, Chloride 123 H, Carbon Dioxide 22.0, Anion Gap 2 L, BUN 44 H, Creatinine 1.56 H, Estim Creat Clear Calc 42.42, Est GFR (MDRD) Af Amer 56 L, Est GFR (MDRD) Non-Af 46 L, BUN/Creatinine Ratio 28.2 H, Glucose 96, Calcium 8.1L, Total Bilirubin 0.50, AST 227 H, ALT 115 H, Alkaline Phosphatase 62, Total Creatine Kinase 3011 H, Total Protein 5.4 L, Albumin 2.1 L, Globulin 3.3, Albumin/Globulin Ratio 0.6 L Micro: Microbiology 04/12/23 11:00 Blood Culture (Wb) - Right Wrist Blood Culture - Preliminary No growth in 48 hours. 04/12/23 11:05 Blood Culture (Wb) - Right Hand Blood Culture - Preliminary No growth in 48 hours. 04/12/23 11:18 Mucosa - Nasopharyngeal SARS-CoV-2, Influenza & RSV (PCR) - Final Influenzae A Rhythm Strip Rhythm Strip: PSVT otherwise normal sinus rhythm Physical Exam Const alert and no apparent distress HEENT HEENT Narrative: Ecchymosis under chin. Resp normal respiratory effort, no retractions, no use of accessory muscles and clearto auscultation bilaterally Cardio regular rate, regular rhythm, S1 normal heart sound and S2 normal heart sound GI normal to inspection, nondistended, normoactive bowel sounds, soft to palpation,non-tender and non-distended Extremity Extremity Narrative: Ecchymosis on underside of left arm. Neuro Sensorium / Orientation: awake and alert Psych Mood & Affect: anxious Assessment & Plan Assessment/Plan (1) Cardiac enzymes elevated: (2) Rhabdomyolysis: QUALIFIERS: Encounter type: initial encounter Rhabdomyolysis type: traumatic Qualified Code(s): T79.6XXA - Traumatic ischemia of muscle, initial encounter PLAN: Plan Rhabdomyolysis due to mechanical fall * Patient states he fell on the floor. He does not remember whether he passed out or not but knows he was on the floor at least overnight. CPK is more than 28,000. * Creatinine is also elevated but has trended down to 2.53. * CPK is also down to 3011 * cut down fluids to 150cc/hr. NS. * PT/OT On board. Fall precautions. Non-STEMI * Likely a type II non-STEMI (demand ischemia) in light of DIAN and patient's mechanical fall. Initial troponin was 3604 and trended down to 3095 then 2612. * EKG showed no acute ST changes. * cardiology signed off * 2D echo showed EF of 70%, unable to assess diastolic dyfsunction; no regional wall motion abnormalities seen. * aspirin 81 mg daily. DIAN * Creatinine 3.27 down to to 1.56 * Baseline creatinine not known. Likely prerenal due to patient being on the floor for about 12 hours and also CPK being elevated in setting of rhabdomyolysis. * Nephrology following * DC IVF. Hematoma of right jaw * patient has a nontender swelling on the right jaw, with ecchmyosis ovr the right jaw , extending down to his neck * soft tissue CT showed moderate dense stranding in the right face and neck, concerning for hemorrhage and contusion in a patient with a recent history of trauma. * Hb has trended down to 8.5, from 13.6 on admission. however, platelets and wbc have also trended down, and so may be due to hemodilution as he has been aggressively hydrated o/a of DIAN and rhabdomyolysis * will monitor for now. If Acute blood loss anemia * Secondary to hematoma but also likely due to hemoconcentration as patient appeared to be dehydrated upon arrival. * Dropped from 13.6 (likely hemoconcentrated), but stable at 8.4. Influenza A infection: on 2L of oxygen by nasal canula. on tamiflu, renally adjusted dose. Hypotension: * resolved. 2/2 dehydration Chronic conditions: * History of CAD s/p CABG: On aspirin and statin. * Dementia: On donepezil * Hypertension: Hold losartan and hydrochlorothiazide on account of DIAN and rhabdomyolysis. IV hydralazine as needed. Also on metoprolol. * BPH: On Flomax DVT prophylaxis: Heparin; dc heparin in light of jaw hematoma and drop in Hb CODE STATUS: Full code Disposition: SNF. Medically stable. Patient and family decided to [facility] but would not have any beds available until the . Patient asked me to talk with his as he is very concerned about her. I used the patient's phone to discuss with his and explained to her his case and the plan for rehab. She expressed understanding. Patient was also very concerned that she was very weak but she stated that she was doing well and her daughter came to town to talk with him. When the patient was asking me to checkon his , I told him that does not really my job but I told him to reach out to his children but he said he had too hoarse of a voice to build to do so. Greater than 55 minutes of which greater than 50% of the time was counseling thepatient at bedside about his issues but also talking with his over the phone. Charges/Coding Visit Charges Inpatient E&M: 52798 Subs Hosp L3 04/16/23 1424 <Electronically signed by Jesse Slade DO> Cosigner Signature (if applicable): CC: ~ Signed [facility] Work Phone: 1([phone] 368-109401-28-2024 Progress note Author Teshachance Layne [facility] April 15, 2023 2:00pm Note Date/Time April 15, 2023 1 2:17pm [facility] Medical Records Department [address] [place] [address] Progress Note 04/15/23 1215 MR#: [id number] Acct: [id number] Name: FREDY BOX Rep #:[id number] : 1945 78 From: Tesha Layne MD PCP: Dr. Angela Mera MD Status:ADM IN Location: [place] [address]- Subjective Subjective Patient and examined. He had no active complaints. He denied any fever, chills, cough, chest pain, palpitations, dizziness, nausea, vomiting or any other symptoms. Review of systems is otherwise negative. He has a right jaw swelling which is nontender and is improving. Objective Data Objective Data Vital Signs: Vital Signs Temp Pulse Resp BP Pulse Ox O2 Del Method O2 Flow Rate 98.3 F 85 18 139/53 H 96 Nasal Cannula 2 04/15/23 11:02 04/15/23 11:02 04/15/23 11:02 04/15/23 11:02 04/15/23 11:02 04/15/23 11:02 04/15/23 11:02 Oxygen Flow Rate (L/min) 2 Oxygen Delivery Method Nasal Cannula Weight: 197 lb 5.019 oz Body Mass Index (BMI) 29.9 Intake & Output: Intake and Output for Last 24 Hours 04/13/23 04/14/23 04/15/23 23:59 23:59 23:59 Intake Total 3959.11 / 3959.11 4630.00 / 4750.00 2249.58 / 2249.58 Output Total 1450 / 1450 1625 / 2025 1400 / 1400 Balance 2509.11 / 2509.11 3005.00 / 2725.00 849.58 / 849.58 Medical Nutrition Assessment Dietitian: Malnutrition Criteria Met Start: 04/13/23 11:51 Freq: Status: Active Protocol: Document 04/13/23 11:51 SLA (Rec: 04/13/23 11:51 SLA Desktop) Nutrition Malnutrition Evidence of Malnutrition Exists Yes Malnutrition (severe): Acute Illness/Injury Evidenced By Suboptimal Energy Intake ( Severe),Weight Loss (Severe) Clinical Problem Acute Disease or Injury Related Malnutrition Etiology related to acute illness and inadequate energy intake Signs/Symptoms as evidenced by pt po intake meeting <50% of est nutritional needs and 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 Lab / Micro Data 04/15/23 04:20 04/15/23 04:20 Labs: Laboratory Results - last 24 hr 04/15/23 04:20: WBC 3.5 L, RBC 2.51 L, Hgb 8.5 L, Hct 27.0 L, MCV 107.6 H, MCH 33.9 H, MCHC 31.5 L, RDW Std Deviation 58.4 H, RDW Coeff of Ese 14.6, Plt Count 84 L, MPV 10.2, Immature Gran % (Auto) 0.600, Neut % (Auto) 77.0 H, Lymph % (Auto) 14.9 L, [place] % (Auto) 7.2, Eos % (Auto) 0.3, Baso % (Auto) 0.0, Absolute Neuts (auto) 2.7, Absolute Lymphs (auto) 0.52 L, Nucleated RBC % 0, Sodium 144, Potassium 4.6, Chloride 123 H, Carbon Dioxide 21.0, Anion Gap 0 L, BUN 62 H, Creatinine 2.05 H, Estim Creat Clear Calc 32.28, Est GFR (MDRD) Af Amer 41 L, Est GFR (MDRD) Non-Af 34 L, BUN/Creatinine Ratio 30.2 H, Glucose 100, Calcium 7.8 L, Total Bilirubin 0.40, AST 274 H, ALT 118 H, Alkaline Phosphatase 59, Total Creatine Kinase 5877 H, Total Protein 5.3 L, Albumin 2.0 L, Globulin 3.3, Albumin/Globulin Ratio 0.6 L Micro: Microbiology 04/12/23 11:00 Blood Culture (Wb) - Right Wrist Blood Culture - Preliminary No growth in 48 hours. 04/12/23 11:05 Blood Culture (Wb) - Right Hand Blood Culture - Preliminary No growth in 48 hours. 04/12/23 11:18 Mucosa - Nasopharyngeal SARS-CoV-2, Influenza & RSV (PCR) - Final Influenzae A Radiography Diagnostic Testing: Radiology Impression Soft Tissue Neck CT 04/14/23 12:16 IMPRESSION: Moderate dense stranding in the right face and neck, concerning for hemorrhage and contusion in a patient with a recent history of trauma. Cellulitis considered less likely. No acute facial fracture identified. Pansinusitis. Electronically Signed: Lilly Francois MD at 13:59 EST Reading Location ID and State: [facility] / [place] Tel , Service support , Rhythm Strip Rhythm Strip: PSVT otherwise normal sinus rhythm Physical Exam Const alert, oriented x3 and no apparent distress Constitutional Narrative: frail, weak General Appearance: cooperative HEENT normocephalic and head/scalp atraumatic HEENT Narrative: has a swelling along the right jaw, nontender, with ecchymosis over right jaw and upper neck. no differential warmth or tenderness. Eyes PERRL and EOMs intact bilaterally Neck no lymphadenopathy and supple Lymph Lymphatic: no lymphadenopathy noted and no lymphedema noted Resp normal respiratory effort, normal air movement and clear to auscultation bilaterally Cardio regular rate, regular rhythm, S1 normal heart sound, S2 normal heart sound and no murmurs GI normal to inspection, nondistended, normoactive bowel sounds, soft to palpation,non-tender and non-distended Extremity normal capillary refill, no clubbing, cyanosis or edema and no calf tenderness General Extremity: no tenderness to palpation of joints or extremities Skin General Skin Exam: no breakdown Neuro CN's II-XII intact bilaterally, no focal motor deficits, no sensory deficits noted and deep tendon reflexes 2+ bilaterally Motor Exam: strength 5/5 throughout and general weakness Psych thought process normal and cooperative Psych Narrative: lethargic Appearance: appropriate Mood & Affect: flat affect Assessment & Plan Assessment/Plan (1) Cardiac enzymes elevated: (2) Rhabdomyolysis: QUALIFIERS: Encounter type: initial encounter Rhabdomyolysis type: traumatic Qualified Code(s): T79.6XXA - Traumatic ischemia of muscle, initial encounter PLAN: Plan #Rhabdomyolysis due to mechanical fall * Patient states he fell on the floor. He does not remember whether he passed out or not but knows he was on the floor at least overnight. CPK is more than 28,000. * Creatinine is also elevated but has trended down to 2.53. * CPK is also down to 5877 * cut down fluids to 150cc/hr. NS. * PT/OT On board. Fall precautions. * #Non-STEMI * Likely a type II non-STEMI in light of DIAN and patient's mechanical fall. Initial troponin was 3604 and trended down to 3095 then 2612. * EKG showed no acute ST changes. * cardiology reviewed him and thinks it is a type 2 nonstemi due to DIAN and rhabdomyolysis * 2D echo showed EF of 70%, unable to assess diastolic dyfsunction; no regional wall motion abnormalities seen. * cardiology on board. * P.o. aspirin 81 mg daily. * #DIAN * CR has trended down to 2.05 today. * Baseline creatinine not known. Likely prerenal due to patient being on the floor for about 12 hours and also CPK being elevated in setting of rhabdomyolysis. * Hydrate aggressively with IV fluids. * Trend creatinine. * kim catheter in situ * nephrology consutled; * #Hematoma of right jaw * patient has a nontender swelling on the right jaw, with ecchmyosis ovr the right jaw , extending down to his neck * soft tissue CT showed moderate dense stranding in the right face and neck, concerning for hemorrhage and contusion in a patient with a recent history of trauma. * Hb has trended down to 8.5, from 13.6 on admission. however, platelets and wbc have also trended down, and so may be due to hemodilution as he has been aggressively hydrated o/a of DIAN and rhabdomyolysis * will monitor for now. If #Influenza A infection: on 2L of oxygen by nasal canula. on tamiflu, renally adjusted dose. # Hypotension: resolved. * #History of CAD s/p CABG: On aspirin and statin. #Dementia: On donepezil #Hypertension: Hold losartan and hydrochlorothiazide on account of DIAN and rhabdomyolysis. IV hydralazine as needed. Also on metoprolol. #BPH: On Flomax DVT prophylaxis: Heparin; dc heparin in light of jaw hematoma and drop in Hb CODE STATUS: Full code Disposition: patient says he may prefer to go to a SNF as his is also unwell and wont be able to take care of him. Case management on board. * Charges/Coding Visit Charges Inpatient E&M: 83680 Subs Hosp L2 04/15/23 1400 <Electronically signed by Tesha Layne MD> Tesha Layne MD Cosigner Signature (if applicable): CC: ~ Signed [facility] Work Phone: 1(446) 329-820001-28-2024 Progress note Author Jack Fuller [facility] April 15, 2023 9:49am Note Date/Time April 15, 2023 9 :49am [facility] Medical Records Department [address] [place] [address] Progress Note - Cardiology 04/15/23 0943 MR#: [id number] Acct: [id number] Name: FREDY BOX Rep #:[id number] : 1945 78 From: Jack Fuller MD PCP: Dr. Angela Mera MD Status:ADM IN Location: [place] [address] Subjective Subjective The patient's telemetry showed short burst of paroxysmal supraventricular tachycardia. There were P waves visible this is not consistent with atrial fibrillation. The patient is sitting up in the chair this morning looks much better than he has in the last 48 hours. He denies any chest symptoms denies any signs that would be consistent with a coronary ischemic event. Objective Data Vital Signs: Vital Signs Temp Pulse Resp BP Pulse Ox O2 Del Method O2 Flow Rate 98.4 F 78 20 H 127/50 H 96 Nasal Cannula 2 04/15/23 08:07 04/15/23 08:07 04/15/23 08:07 04/15/23 08:07 04/15/23 08:07 04/15/23 08:15 04/15/23 08:15 Oxygen Flow Rate (L/min) 2 Oxygen Delivery Method Nasal Cannula Weight: 197 lb 5.019 oz Body Mass Index (BMI) 29.9 Intake & Output: Intake and Output for Last 24 Hours 04/13/23 04/14/23 04/15/23 23:59 23:59 23:59 Intake Total 3959.11 / 3959.11 4630.00 / 4750.00 1038.75 / 1038.75 Output Total 1450 / 1450 1625 / 2025 1000 / 1000 Balance 2509.11 / 2509.11 3005.00 / 2725.00 38.75 / 38.75 Lab / Micro Data 04/15/23 04:20 04/15/23 04:20 Labs: Laboratory Results - last 24 hr 04/14/23 07:24: Differential Comment SCANNED 04/15/23 04:20: WBC 3.5 L, RBC 2.51 L, Hgb 8.5 L, Hct 27.0 L, MCV 107.6 H, MCH 33.9 H, MCHC 31.5 L, RDW Std Deviation 58.4 H, RDW Coeff of Ese 14.6, Plt Count 84 L, MPV 10.2, Immature Gran % (Auto) 0.600, Neut % (Auto) 77.0 H, Lymph % (Auto) 14.9 L, [place] % (Auto) 7.2, Eos % (Auto) 0.3, Baso % (Auto) 0.0, Absolute Neuts (auto) 2.7, Absolute Lymphs (auto) 0.52 L, Nucleated RBC % 0, Sodium 144, Potassium 4.6, Chloride 123 H, Carbon Dioxide 21.0, Anion Gap 0 L, BUN 62 H, Creatinine 2.05 H, Estim Creat Clear Calc 32.28, Est GFR (MDRD) Af Amer 41 L, Est GFR (MDRD) Non-Af 34 L, BUN/Creatinine Ratio 30.2 H, Glucose 100, Calcium 7.8 L, Total Bilirubin 0.40, AST 274 H, ALT 118 H, Alkaline Phosphatase 59, TotalCreatine Kinase 5877 H, Total Protein 5.3 L, Albumin 2.0 L, Globulin 3.3, Albumin/Globulin Ratio 0.6 L Micro: Microbiology 04/12/23 11:00 Blood Culture (Wb) - Right Wrist Blood Culture - Preliminary No growth in 48 hours. 04/12/23 11:05 Blood Culture (Wb) - Right Hand Blood Culture - Preliminary No growth in 48 hours. Rhythm Strip Rhythm Strip: PSVT otherwise normal sinus rhythm Cardiology Labs/Tests 04/15/23 04:20: WBC 3.5 L, RBC 2.51 L, Hgb 8.5 L, Hct 27.0 L, MCV 107.6 H, MCH 33.9 H, MCHC 31.5 L, Plt Count 84 L, MPV 10.2, Immature Gran % (Auto) 0.600, Neut % (Auto) 77.0 H, Lymph % (Auto) 14.9 L, [place] % (Auto) 7.2, Eos % (Auto) 0.3, Baso % (Auto) 0.0, Absolute Neuts (auto) 2.7, Nucleated RBC % 0, Sodium 144, Potassium 4.6, Chloride 123 H, Carbon Dioxide 21.0, Anion Gap 0 L, BUN 62 H, Creatinine 2.05 H, Est GFR (MDRD) Af Amer 41 L, Est GFR (MDRD) Non-Af 34 L, BUN/Creatinine Ratio 30.2 H, Glucose 100, Calcium 7.8 L, Total Bilirubin 0.40 Rhythm: EKG: ECHO: Stress Test: Cardiac Cath: PCI: CT Surgery: Holter monitor: EPS: PPM: CXR: Chest CT Scan: Radiography Diagnostic Testing: Radiology Impression Soft Tissue Neck CT 04/14/23 12:16 IMPRESSION: Moderate dense stranding in the right face and neck, concerning for hemorrhage and contusion in a patient with a recent history of trauma. Cellulitis considered less likely. No acute facial fracture identified. Pansinusitis. Electronically Signed: Lilly Francois MD at 13:59 EST , Physical Exam Const oriented x3 HEENT normocephalic Eyes EOMs intact bilaterally Neck Neck Narrative: Extensive ecchymosis and swelling noted along the right supraclavicular area andup into the neck to the angle of the jaw. Chest inspection of chest normal Resp normal respiratory effort Cardio regular rate, regular rhythm, S1 normal heart sound, S2 normal heart sound, no murmurs, no rub and no gallops GI normal to inspection, nondistended, normoactive bowel sounds Extremity no pedal edema Skin General Skin Exam: ecchymosis Wound Narrative: In the neck area as described above Psych mental status grossly normal Assessment & Plan Assessment/Plan (1) Cardiac enzymes elevated: PLAN: These enzyme elevations are not consistent with a non-STEMI. This is demand ischemia. The patient should be endovascular outpatient medical regimentwhen appropriate to reinstitute per the primary service. (2) Coronary arteriosclerosis after percutaneous transluminal coronary angioplasty (PTCA): PLAN: Continue secondary risk factor modifications. (3) PSVT (paroxysmal supraventricular tachycardia): PLAN: Telemetry showed a short run of paroxysmal supraventricular tachycardia with obvious P waves this is not consistent with atrial fibrillation. Continue his current medical regiment this is not unexpected given his overall general medical situation. PLAN: Plan 1. Endpoint we will sign off if further assistance is needed please feel free to recontact [facility] 2. The patient is follow-up per his previously arranged appointment in the [facility] and as needed. Charges/Coding Visit Charges Inpatient E&M: 36049 Subs Hosp L2 04/15/23 0949 <Electronically signed by Jack Fuller MD> Cosigner Signature (if applicable): CC: ~ Signed [facility] Work Phone: [phone] Consult note Author Gagandeep Felder [facility] April 15, 2023 9:45am Note Date/Time April 15, 2023 9 :45am [facility] Medical Records Department [facility] [place] [address] Consultation - Nephrology 04/15/23 0942 MR#: [id number] Acct: [id number] Name: FREDY BOX Rep #:[id number] : 1945 78 From: Gagandeep wiggins MD PCP: Dr. Angela Mera MD Status:ADM IN Location: [place] [address] Assessment & Plan Assessment/Plan (1) Rhabdomyolysis: QUALIFIERS: Rhabdomyolysis type: traumatic Encounter type: initial encounter Qualified Code(s): T79.6XXA - Traumatic ischemia of muscle, initial encounter PLAN: Apparently he was found down. On examination no focal muscle compartment tenderness. He does have a right neck hematoma. He complains of generalized muscle pain as diffuse tenderness. Urine is clear. CPK levels are less than 10,000. Typically the risk of kidney injury is lower once CPK level is less than 10,000. Likely can DC IV fluids tomorrow (2) DIAN (acute kidney injury): PLAN: No prior kidney disease according to him. Kim catheter indwelling with good urine output. Most likely due to rhabdomyolysis. Creatinine is trending down. Overall he feels better but still has significant weakness. HPI Consult Data Date of Consult: 04/15/23 HPI Narrative Reason for Consultation: Acute renal failure, rhabdomyolysis HPI Narrative: FREDY BOX, is a 78 M who presents to the hospital with generalized weakness. Ongoing events include influenza, non-ST elevation [place], acute renal failure, rhabdomyolysis. Apparently he was very sick, was found down. Unable to tell me how long he was down. Currently complains of diffuse muscle pains, no focal muscle compartment pain. Kim catheter indwelling with decent urine output. No breathing difficulties. [facility] Medical History (Updated 04/15/23 @ 09:[address] Gagandeep Felder MD) CVA (cerebral vascular accident) Dementia High cholesterol Hypertension Kidney calculi Home Medications albuterol sulfate 90 mcg/actuation aerosol inhaler 2 puff inhalation Q4H PRN wheezing 04/12/23 [History Last Taken Unknown] allopurinol 300 mg tablet 300 mg PO DAILY gout 04/12/23 [History Last Taken 04/11/23] aspirin 81 mg capsule 81 mg PO DAILY heart health 04/12/23 [History Last Taken 04/11/23] atorvastatin 20 mg tablet 20 mg PO DAILY cholesterol 04/12/23 [History Last Taken 04/11/23] benzonatate 100 mg capsule 100 mg PO TID PRN PRN cough 04/12/23 [History Last Taken Unknown] cetirizine 10 mg tablet 10 mg PO DAILY PRN allergy symptoms 04/12/23 [History Last Taken Unknown] donepezil 10 mg tablet 10 mg PO QHS dementia 04/12/23 [History Last Taken 04/11/23] losartan 50 mg-hydrochlorothiazide 12.5 mg tablet 1 tab PO DAILY blood pressure 04/12/23 [History Last Taken 04/11/23] memantine 5 mg tablet 5 mg PO BID dementia 04/12/23 [History Last Taken 04/11/23] methylprednisolone 4 mg tablets in a dose pack 4 mg PO steriod 04/12/23 [History Last Taken Unknown] metoprolol tartrate 25 mg tablet 25 mg PO BID blood pressure 04/12/23 [History Last Taken 04/11/23] tamsulosin 0.4 mg capsule 0.4 mg PO DAILY urination 04/12/23 [History Last Taken 04/11/23] timolol maleate 0.5 % eye drops 1 drp ophthalmic (eye) BID eye health 04/12/23 [History Last Taken 04/11/23] Allergy/AdvReac Type Severity Reaction Status Date / Time No Known Allergies Allergy Verified 04/12/23 11:22 Family History unable to obtain Surgical History (Updated 04/12/23 @ 16:[address] Jack Fuller MD) History of heart artery stent Surgical History unable to obtain Social History Smoking Status: Never smoker ROS ROS Narrative Negative except above Physical Exam Narrative Alert awake oriented x 3 no obvious distress no pallor no icterus no JVD s1s2 no murmurs lungs clear abdomen soft no organomegaly no edema no cyanosis kim + Medical Records Data Medical Nutrition Assessment Dietitian: Malnutrition Criteria Met Start: 04/13/23 11:51 Freq: Status: Active Protocol: Document 04/13/23 11:51 SLA (Rec: 04/13/23 11:51 SLA Desktop) Nutrition Malnutrition Evidence of Malnutrition Exists Yes Malnutrition (severe): Acute Illness/Injury Evidenced By Suboptimal Energy Intake ( Severe),Weight Loss (Severe) Clinical Problem Acute Disease or Injury Related Malnutrition Etiology related to acute illness and inadequate energy intake Signs/Symptoms as evidenced by pt po intake meeting <50% of est nutritional needs and 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 Lab / Micro Data 04/15/23 04:20 04/15/23 04:20 Labs: Laboratory Results - last 24 hr 04/14/23 07:24: Differential Comment SCANNED 04/15/23 04:20: WBC 3.5 L, RBC 2.51 L, Hgb 8.5 L, Hct 27.0 L, MCV 107.6 H, MCH 33.9 H, MCHC 31.5 L, RDW Std Deviation 58.4 H, RDW Coeff of Ese 14.6, Plt Count 84 L, MPV 10.2, Immature Gran % (Auto) 0.600, Neut % (Auto) 77.0 H, Lymph % (Auto) 14.9 L, [place] % (Auto) 7.2, Eos % (Auto) 0.3, Baso % (Auto) 0.0, Absolute Neuts (auto) 2.7, Absolute Lymphs (auto) 0.52 L, Nucleated RBC % 0, Sodium 144, Potassium 4.6, Chloride 123 H, Carbon Dioxide 21.0, Anion Gap 0 L, BUN 62 H, Creatinine 2.05 H, Estim Creat Clear Calc 32.28, Est GFR (MDRD) Af Amer 41 L, Est GFR (MDRD) Non-Af 34 L, BUN/Creatinine Ratio 30.2 H, Glucose 100, Calcium 7.8 L, Total Bilirubin 0.40, AST 274 H, ALT 118 H, Alkaline Phosphatase 59, Total Creatine Kinase 5877 H, Total Protein 5.3 L, Albumin 2.0 L, Globulin 3.3, Albumin/Globulin Ratio 0.6 L Micro: Microbiology 04/12/23 11:00 Blood Culture (Wb) - Right Wrist Blood Culture - Preliminary No growth in 48 hours. 04/12/23 11:05 Blood Culture (Wb) - Right Hand Blood Culture - Preliminary No growth in 48 hours. Imaging Radiology Impression Soft Tissue Neck CT 04/14/23 12:16 IMPRESSION: Moderate dense stranding in the right face and neck, concerning for hemorrhage and contusion in a patient with a recent history of trauma. Cellulitis considered less likely. No acute facial fracture identified. Pansinusitis. Electronically Signed: Lilly Francois MD at 13:59 EST Reading Location ID and State: [facility] / [place] Tel , Service support , 04/15/23 0945 <Electronically signed by Gagandeep Felder MD> Cosigner Signature (if applicable): CC: Dr. Gagandeep Felder MD; Dr. Jack Fuller MD; Dr. Angela Mera MD~ Signed [facility] Work Phone: [phone] [facility] April 14, 2023 1:37pm Note Date/Time April 14, 2023 1 0:03[facility] Medical Records Department [address] [place] [address] Progress Note 04/14/23 1001 MR#: [id number] Acct: [id number] Name: FREDY BOX Rep #:[id number] : 1945 78 From: Tesha Layne MD PCP: Dr. Angela Mera MD Status:ADM IN Location: [place] [address] Subjective Subjective Patient seen and examined. He complained of a cough. He also has a soft tissue swelling along his right jaw. He has no other complaints. Review of systems is otherwise negative. Objective Data Objective Data Vital Signs: Vital Signs Temp Pulse Resp BP Pulse Ox O2 Del Method O2 Flow Rate 98.8 F 86 20 H 136/54 H 97 Nasal Cannula 2 04/14/23 08:30 04/14/23 08:30 04/14/23 08:30 04/14/23 08:30 04/14/23 08:40 04/14/23 08:40 04/14/23 08:40 Oxygen Flow Rate (L/min) 2 Oxygen Delivery Method Nasal Cannula Weight: 197 lb 5.019 oz Body Mass Index (BMI) 29.9 Intake & Output: Intake and Output for Last 24 Hours 04/12/23 04/13/23 04/14/23 23:59 23:59 23:59 Intake Total 3870.17 / 3870.17 3959.11 / 3959.11 2440.00 / 2440.00 Output Total 400 / 400 1450 / 1450 700 / 700 Balance 3470.17 / 3470.17 2509.11 / 2509.11 1740.00 / 1740.00 Medical Nutrition Assessment Dietitian: Malnutrition Criteria Met Start: 04/13/23 11:51 Freq: Status: Active Protocol: Document 04/13/23 11:51 SLA (Rec: 04/13/23 11:51 SLA Desktop) Nutrition Malnutrition Evidence of Malnutrition Exists Yes Malnutrition (severe): Acute Illness/Injury Evidenced By Suboptimal Energy Intake ( Severe),Weight Loss (Severe) Clinical Problem Acute Disease or Injury Related Malnutrition Etiology related to acute illness and inadequate energy intake Signs/Symptoms as evidenced by pt po intake meeting <50% of est nutritional needs and 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 Lab / Micro Data 04/14/23 07:24 04/14/23 07:24 Labs: Laboratory Results - last 24 hr 04/13/23 13:30: APTT 105.1 H* 04/14/23 07:24: WBC 4.4, RBC 2.98 L, Hgb 10.1 L, Hct 31.3 L, MCV 105.0 H, MCH 33.9 H, MCHC 32.3, RDW Std Deviation 56.8 H, RDW Coeff of Ese 14.6, Plt Count 100 L, MPV 9.8, Immature Gran % (Auto) 0.500, Neut % (Auto) 81.4 H, Lymph % (Auto) 11.0 L, [place] % (Auto) 6.9, Eos % (Auto) 0.0, Baso % (Auto) 0.2, Absolute Neuts (auto) 3.5, Absolute Lymphs (auto) 0.48 L, Nucleated RBC % 0, Sodium 145, Potassium 4.1, Chloride 122 H, Carbon Dioxide 20.0 L, Anion Gap 3 L, BUN 78 H, Creatinine 2.53 H, Estim Creat Clear Calc 26.15, Est GFR (MDRD) Af Amer 32 L, Est GFR (MDRD) Non-Af 26 L, BUN/Creatinine Ratio 30.8 H, Glucose 100, Calcium 7.9 L, Total Bilirubin 0.40, AST 361 H, ALT 147 H, Alkaline Phosphatase 63, Total Creatine Kinase 99907 H, Total Protein 5.6 L, Albumin 2.3 L, Globulin 3.3, Albumin/Globulin Ratio 0.7 L Micro: Microbiology 04/12/23 11:18 Mucosa - Nasopharyngeal SARS-CoV-2, Influenza & RSV (PCR) - Final Influenzae A Radiography Diagnostic Testing: Radiology Impression Renal Ultrasound 04/13/23 11:46 IMPRESSION: 1. No evidence of hydronephrosis. 2. Multiple bilateral nonobstructing renal stones. 3. Right renal cyst. Electronically Signed: Reynold Fischer MD at 15:36 EST , Mandible X-Ray 04/13/23 15:50 IMPRESSION: No demonstrated fracture or suspicious osseous lesion Electronically Signed: Lucio Krishna MD at 16:09 EST , Physical Exam Const alert, oriented x3 and no apparent distress Constitutional Narrative: frail, weak General Appearance: cooperative HEENT normocephalic and head/scalp atraumatic Eyes PERRL and EOMs intact bilaterally Neck no lymphadenopathy and supple Lymph Lymphatic: no lymphadenopathy noted and no lymphedema noted Resp normal respiratory effort, normal air movement and clear to auscultation bilaterally Cardio regular rate, regular rhythm, S1 normal heart sound, S2 normal heart sound and no murmurs GI normal to inspection, nondistended, normoactive bowel sounds, soft to palpation,non-tender and non-distended Extremity normal capillary refill, no clubbing, cyanosis or edema and no calf tenderness General Extremity: no tenderness to palpation of joints or extremities Skin General Skin Exam: no breakdown Neuro CN's II-XII intact bilaterally, no focal motor deficits, no sensory deficits noted and deep tendon reflexes 2+ bilaterally Motor Exam: strength 5/5 throughout and general weakness Psych thought process normal and cooperative Psych Narrative: lethargic Appearance: appropriate Mood & Affect: flat affect Assessment & Plan Assessment/Plan (1) Cardiac enzymes elevated: (2) Rhabdomyolysis: QUALIFIERS: Rhabdomyolysis type: traumatic Encounter type: initial encounter Qualified Code(s): T79.6XXA - Traumatic ischemia of muscle, initial encounter PLAN: Plan #Rhabdomyolysis due to mechanical fall * Patient states he fell on the floor. He does not remember whether he passed out or not but knows he was on the floor at least overnight. CPK is more than 28,000. * Creatinine is also elevated but has trended down to 2.53[place] * [place] [address] * cut down fluids to 150cc/hr. NS. * PT/OT On board. Fall precautions. * #Non-STEMI * Likely a type II non-STEMI in light of DIAN and patient's mechanical fall. Initial troponin was 3604 and trended down to 3095 then 2612. * EKG showed no acute ST changes. * cardiology reviewed him and thinks it is a type 2 nonstemi due to DIAN and rhabdomyolysis * 2D echo showed EF of 70%, unable to assess diastolic dyfsunction; no regional wall motion abnormalities seen. * cardiology on board. * P.o. aspirin 81 mg daily. * #DIAN * CR has trended down to 2.53 from 3.2 yesterday. * Baseline creatinine not known. Likely prerenal due to patient being on the floor for about 12 hours and also CPK being elevated in setting of rhabdomyolysis. * Hydrate aggressively with IV fluids. * Trend creatinine. * kim catheter in situ * nephrology consuled; await recs * get nephrology consult if Cr is not improving. * check Feurea and renal USG * #Influenza A infection: on 2L of oxygen by nasal canula. on tamiflu, renally adjusted dose. # Hypotension: Blood pressure running in the 90s systolic today. hold BP meds and continue hydration with iVF. * #History of CAD s/p CABG: On aspirin and statin. #Dementia: On donepezil #Hypertension: Hold losartan and hydrochlorothiazide on account of DIAN and rhabdomyolysis. IV hydralazine as needed. Also on metoprolol. #BPH: On Flomax DVT prophylaxis: Heparin CODE STATUS: Full code * 04/14/23 1337 <Electronically signed by Tesha Layne MD> Tesha Layne MD Cosigner Signature (if applicable): CC: ~ Signed [facility] Work Phone: 1(258) 191-124501-26-2024 Progress note Author Tesha [facility] April 13, 2023 4:55pm Note Date/Time April 13, 2023 1 1:39am [facility] Medical Records Department [address] [place] [address] Progress Note 04/13/23 1136 MR#: [id number] Acct: [id number] Name: FREDY BOX Rep #:[id number] : 1945 78 From: Tesha Layne MD PCP: Dr. Angela Mera MD Status:ADM IN Location: [place] [address] Subjective Subjective Patient seen and examined. He was lethargic but able to communicate. He was alert and oriented x 3. He had no active complaints and had an uneventful night.REview of systems is otherwise negative. His BP is running low today, in the 90ssystolic. Objective Data Objective Data Vital Signs: Vital Signs Temp Pulse Resp BP Pulse Ox O2 Del Method O2 Flow Rate 97.7 F L 58 L 18 95/52 L 97 Nasal Cannula 2 04/13/23 11:06 04/13/23 11:06 04/13/23 11:06 04/13/23 11:06 04/13/23 11:06 04/13/23 11:06 04/13/23 11:06 Oxygen Flow Rate (L/min) 2 Oxygen Delivery Method Nasal Cannula Weight: 197 lb 5.019 oz Body Mass Index (BMI) 29.9 Intake & Output: Intake and Output for Last 24 Hours 04/11/23 04/12/23 04/13/23 23:59 23:59 23:59 Intake Total 3870.17 / 3870.17 1367.02 / 1367.02 Output Total 400 / 400 500 / 500 Balance 3470.17 / 3470.17 867.02 / 867.02 Lab / Micro Data 04/13/23 05:00 04/13/23 05:00 Labs: Laboratory Results - last 24 hr 04/12/23 11:00: WBC 8.8, RBC 4.08 L, Hgb 13.6, Hct 41.1, MCV 100.7 H, MCH 33.3 H, MCHC 33.1, RDW Std Deviation 51.8 H, RDW Coeff of Ese 14.1, Plt Count 123 L, MPV 9.8, Immature Gran % (Auto) 0.300, Neut % (Auto) 84.0 H, Lymph % (Auto) 6.2 L, [place] % (Auto) 9.4, Eos % (Auto) 0.0, Baso % (Auto) 0.1, Absolute Neuts (auto)7.4, Absolute Lymphs (auto) 0.54 L, Nucleated RBC % 0, Differential Comment COMMENT, PT Cancelled 04/12/23 11:00: PT 15.0 H, INR Cancelled 04/12/23 11:00: INR 1.2, APTT Cancelled 04/12/23 11:00: APTT 31.7, Sodium 141, Potassium 4.0, Chloride 112 H, Carbon Dioxide 18.0 L, Anion Gap 11, BUN 69 H, Creatinine 3.27 H, Estim Creat Clear Calc 20.51, Est GFR (MDRD) Af Amer 24 L, Est GFR (MDRD) Non-Af 20 L, BUN/Creatinine Ratio 21.1 H, Glucose 93, Hemoglobin A1c 5.6, Lactic Acid 2.3 H*,Calcium 8.7, Total Bilirubin 0.70, AST 576 H, ALT 162 H, Alkaline Phosphatase 85, Total Creatine Kinase 77559 H, Troponin I High Sens 3604 H*, Total Protein 7.3, Albumin 3.1 L, Globulin 4.2, Albumin/Globulin Ratio 0.7 L, Triglycerides 100, Cholesterol 103, LDL Cholesterol 29, VLDL Cholesterol 20, HDL Cholesterol 54, Lipase 42 04/12/23 14:30: Troponin I High Sens 3095 H* 04/12/23 16:40: Lactic Acid 1.1, Troponin I High Sens 2612 H* 04/12/23 20:05: APTT > 200.0 H* 04/13/23 05:00: WBC 7.7, RBC 3.53 L, Hgb 11.9 L, Hct 36.3 L, MCV 102.8 H, MCH 33.7 H, MCHC 32.8, RDW Std Deviation 54.4 H, RDW Coeff of Ese 14.3, Plt Count 118 L, MPV 9.6, Immature Gran % (Auto) 0.600, Neut % (Auto) 86.6 H, Lymph % (Auto) 6.7 L, [place] % (Auto) 6.0, Eos % (Auto) 0.0, Baso % (Auto) 0.1, Absolute Neuts (auto) 6.7, Absolute Lymphs (auto) 0.52 L, Nucleated RBC % 0, DifferentialComment SCANNED, APTT 247.2 H*, Sodium 142, Potassium 4.0, Chloride 116 H, Carbon Dioxide 20.0 L, Anion Gap 6, BUN 85 H, Creatinine 3.20 H, Estim Creat Clear Calc 20.68, Est GFR (MDRD) Af Amer 24 L, Est GFR (MDRD) Non-Af 20 L, BUN/Creatinine Ratio 26.6 H, Glucose 84, Calcium 7.7 L, Total Bilirubin 0.40, AST 551 H, ALT 175 H, Alkaline Phosphatase 69, Total Creatine Kinase 29765 H, Total Protein 5.9 L, Albumin 2.6 L, Globulin 3.3, Albumin/Globulin Ratio 0.8 L Micro: Microbiology 04/12/23 11:18 Mucosa - Nasopharyngeal SARS-CoV-2, Influenza & RSV (PCR) - Final Influenzae A Radiography Diagnostic Testing: Radiology Impression Brain CT 04/12/23 11:12 IMPRESSION: Chronic involutional changes of the brain. 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 Pansinusitis. Electronically Signed: Hang Wood MD at 12:24 EST , Cervical Spine CT 04/12/23 11:12 IMPRESSION: Multilevel degenerative changes, as described above. Electronically Signed: Hang Wood MD at 12:29 EST , Lumbar Spine CT 04/12/23 11:12 IMPRESSION: Multilevel degenerative changes, as described above. Electronically Signed: Hang Wood MD at 12:23 EST , Thoracic Spine CT 04/12/23 11:12 IMPRESSION: Multilevel degenerative changes. No vertebral fracture is seen. Findings suggestive of bibasilar atelectasis. Electronically Signed: Hang Wood MD at 12:25 EST , Chest X-Ray 04/12/23 12:10 IMPRESSION: No acute abnormality is seen. Electronically Signed: Hang Wood MD at 12:30 EST , Echocardiogram 04/12/23 13:39 Interpretation Summary The estimated ejection fraction is 70 %. Unable to assess diastolic dysfunction. Ordering Physician: Tesha Layne Performed By: Juan M De La Garza RCS Physical Exam Const alert and oriented x3 Constitutional Narrative: frail, weak General Appearance: cooperative HEENT normocephalic and head/scalp atraumatic Eyes EOMs intact bilaterally Neck no lymphadenopathy and supple Lymph Lymphatic: no lymphadenopathy noted and no lymphedema noted Resp normal respiratory effort, normal air movement and clear to auscultation bilaterally Cardio regular rate, regular rhythm, S1 normal heart sound, S2 normal heart sound and no murmurs GI normal to inspection, nondistended, normoactive bowel sounds, soft to palpation,non-tender and non-distended Extremity normal capillary refill, no clubbing, cyanosis or edema and no calf tenderness General Extremity: no tenderness to palpation of joints or extremities Skin General Skin Exam: no breakdown Neuro CN's II-XII intact bilaterally, no focal motor deficits, no sensory deficits noted and deep tendon reflexes 2+ bilaterally Motor Exam: strength 5/5 throughout and general weakness Psych thought process normal and cooperative Psych Narrative: lethargic Mood & Affect: flat affect Assessment & Plan Assessment/Plan (1) Cardiac enzymes elevated: (2) Rhabdomyolysis: QUALIFIERS: Encounter type: initial encounter Rhabdomyolysis type: traumatic Qualified Code(s): T79.6XXA - Traumatic ischemia of muscle, initial encounter PLAN: Plan #Rhabdomyolysis due to mechanical fall * Patient states he fell on the floor. He does not member whether he passed out or not but knows he was on the floor at least overnight. CPK is more than 28,000. * Creatinine is also elevated. * Hydrate aggressively with IV fluid normal saline at 150 cc/[place] [address] [place] [address] * PT OT on board. Fall precautions. * continue fluid hydration * #Non-STEMI * Likely a type II non-STEMI in light of DIAN and patient's mechanical fall. Initial troponin was 3604 and trended down to 3095 ten 2612. * EKG showed no acute ST changes. * cardiology reviewed him and thinks it is a type 2 nonstemi due to DIAN and rha bdomyolysis * 2D echo showed EF of 70%, unable to assess diastolic dyfsunction; no regional wall motion abnormalities seen. * cardiology on board. * P.o. aspirin 81 mg daily. Check lipid panel. * #DIAN * CR has trended down to 3.2 from 3.27 on admission * Baseline creatinine not known. Likely prerenal due to patient being on the floor for about 12 hours and also CPK being elevated in setting of rhabd omyolysis. * Hydrate aggressively with IV fluids. * Trend creatinine. If creatinine does not improve, consult nephrology. * insert kim catheter * get nephrology consult if Cr is not improving. * check Feurea and renal USG * #Influenza A infection: on 2L of oxygen by nasal canula. on tamiflu, renally adjusted dose. # Hypotension: Blood pressure running in the 90s systolic today. hold BP meds and continue hydration with iVF. * #History of CAD s/p CABG: On aspirin and statin. #Dementia: On donepezil #Hypertension: Hold losartan and hydrochlorothiazide on account of DIAN and rhabdomyolysis. IV hydralazine as needed. Also on metoprolol. #BPH: On Flomax DVT prophylaxis: Heparin CODE STATUS: Full code * Charges/Coding Visit Charges Inpatient E&M: 53347 Subs Hosp L3 04/13/23 1655 <Electronically signed by Tesha Layne MD> Tesha Layne MD Cosigner Signature (if applicable): CC: ~ Signed [facility] Work Phone: 1(530) 220-430301-26-2024 Progress note Author Jack Fuller [facility] April 13, 2023 9:42am Note Date/Time April 13, 2023 9 :39am [facility] Medical Records Department [address] [place] [address] Progress Note - Cardiology 04/13/23 0935 MR#: [id number] Acct: [id number] Name: FREDY BOX Rep #:[id number] : 1945 78 From: Jack Fuller MD PCP: Dr. Angela Mera MD Status:ADM IN Location: [place] [address] Subjective Subjective The patient reports she continues to be sore all over. He denies any definitivechest pain. His EKG showed normal sinus rhythm with minimal T wave changes. Heis tolerating his current medical regiment his eyes and nose are grossly positive given the fluids to treat his rhabdomyolysis. He denies any PND orthopnea. Objective Data Vital Signs: Vital Signs Temp Pulse Resp BP Pulse Ox O2 Del Method O2 Flow Rate 97.6 F L 55 L 18 100/63 94 Nasal Cannula 2 04/13/23 03:45 04/13/23 03:45 04/13/23 03:45 04/13/23 03:45 04/13/23 03:45 04/13/23 03:50 04/13/23 03:50 Oxygen Flow Rate (L/min) 2 Oxygen Delivery Method Nasal Cannula Weight: 197 lb 5.019 oz Body Mass Index (BMI) 29.9 Intake & Output: Intake and Output for Last 24 Hours 04/11/23 04/12/23 04/13/23 23:59 23:59 23:59 Intake Total 3870.17 / 3870.17 1367.02 / 1367.02 Output Total 400 / 400 500 / 500 Balance 3470.17 / 3470.17 867.02 / 867.02 Lab / Micro Data Attestation: I reviewed the patient's lab results. 04/13/23 05:00 04/13/23 05:00 Labs: Laboratory Results - last 24 hr 04/12/23 11:00: WBC 8.8, RBC 4.08 L, Hgb 13.6, Hct 41.1, MCV 100.7 H, MCH 33.3 H, MCHC 33.1, RDW Std Deviation 51.8 H, RDW Coeff of Ese 14.1, Plt Count 123 L, MPV 9.8, Immature Gran % (Auto) 0.300, Neut % (Auto) 84.0 H, Lymph % (Auto) 6.2 L, [place] % (Auto) 9.4, Eos % (Auto) 0.0, Baso % (Auto) 0.1, Absolute Neuts (auto)7.4, Absolute Lymphs (auto) 0.54 L, Nucleated RBC % 0, Differential Comment COMMENT, PT Cancelled 04/12/23 11:00: PT 15.0 H, INR Cancelled 04/12/23 11:00: INR 1.2, APTT Cancelled 04/12/23 11:00: APTT 31.7, Sodium 141, Potassium 4.0, Chloride 112 H, Carbon Dioxide 18.0 L, Anion Gap 11, BUN 69 H, Creatinine 3.27 H, Estim Creat Clear Calc 20.51, Est GFR (MDRD) Af Amer 24 L, Est GFR (MDRD) Non-Af 20 L, BUN/Creatinine Ratio 21.1 H, Glucose 93, Hemoglobin A1c 5.6, Lactic Acid 2.3 H*,Calcium 8.7, Total Bilirubin 0.70, AST 576 H, ALT 162 H, Alkaline Phosphatase 85, Total Creatine Kinase 83828 H, Troponin I High Sens 3604 H*, Total Protein 7.3, Albumin 3.1 L, Globulin 4.2, Albumin/Globulin Ratio 0.7 L, Triglycerides 100, Cholesterol 103, LDL Cholesterol 29, VLDL Cholesterol 20, HDL Cholesterol 54, Lipase 42 04/12/23 14:30: Troponin I High Sens 3095 H* 04/12/23 16:40: Lactic Acid 1.1, Troponin I High Sens 2612 H* 04/12/23 20:05: APTT > 200.0 H* 04/13/23 05:00: WBC 7.7, RBC 3.53 L, Hgb 11.9 L, Hct 36.3 L, MCV 102.8 H, MCH 33.7 H, MCHC 32.8, RDW Std Deviation 54.4 H, RDW Coeff of Ese 14.3, Plt Count 118 L, MPV 9.6, Immature Gran % (Auto) 0.600, Neut % (Auto) 86.6 H, Lymph % (Auto) 6.7 L, [place] % (Auto) 6.0, Eos % (Auto) 0.0, Baso % (Auto) 0.1, Absolute Neuts (auto) 6.7, Absolute Lymphs (auto) 0.52 L, Nucleated RBC % 0, DifferentialComment SCANNED, APTT 247.2 H*, Sodium 142, Potassium 4.0, Chloride 116 H, Carbon Dioxide 20.0 L, Anion Gap 6, BUN 85 H, Creatinine 3.20 H, Estim Creat Clear Calc 20.68, Est GFR (MDRD) Af Amer 24 L, Est GFR (MDRD) Non-Af 20 L, BUN/Creatinine Ratio 26.6 H, Glucose 84, Calcium 7.7 L, Total Bilirubin 0.40, AST 551 H, ALT 175 H, Alkaline Phosphatase 69, Total Creatine Kinase 87933 H, Total Protein 5.9 L, Albumin 2.6 L, Globulin 3.3, Albumin/Globulin Ratio 0.8 L Micro: Microbiology 04/12/23 11:18 Mucosa - Nasopharyngeal SARS-CoV-2, Influenza & RSV (PCR) - Final Influenzae A Cardiology Labs/Tests 04/12/23 11:00: WBC 8.8, RBC 4.08 L, Hgb 13.6, Hct 41.1, MCV 100.7 H, MCH 33.3 H, MCHC 33.1, Plt Count 123 L, MPV 9.8, Immature Gran % (Auto) 0.300, Neut % (Auto) 84.0 H, Lymph % (Auto) 6.2 L, [place] % (Auto) 9.4, Eos % (Auto) 0.0, Baso %(Auto) 0.1, Absolute Neuts (auto) 7.4, Nucleated RBC % 0, PT Cancelled 04/12/23 11:00: PT 15.0 H, INR Cancelled 04/12/23 11:00: INR 1.2, APTT Cancelled 04/12/23 11:00: APTT 31.7, Sodium 141, Potassium 4.0, Chloride 112 H, Carbon Dioxide 18.0 L, Anion Gap 11, BUN 69 H, Creatinine 3.27 H, Est GFR (MDRD) Af Amer 24 L, Est GFR (MDRD) Non-Af 20 L, BUN/Creatinine Ratio 21.1 H, Glucose 93, Hemoglobin A1c 5.6, Lactic Acid 2.3 H*, Calcium 8.7, Total Bilirubin 0.70, Triglycerides 100, Cholesterol 103, LDL Cholesterol 29, VLDL Cholesterol 20, HDLCholesterol 54 04/12/23 16:40: Lactic Acid 1.1 04/12/23 20:05: APTT > 200.0 H* 04/13/23 05:00: WBC 7.7, RBC 3.53 L, Hgb 11.9 L, Hct 36.3 L, MCV 102.8 H, MCH 33.7 H, MCHC 32.8, Plt Count 118 L, MPV 9.6, Immature Gran % (Auto) 0.600, Neut % (Auto) 86.6 H, Lymph % (Auto) 6.7 L, [place] % (Auto) 6.0, Eos % (Auto) 0.0, Baso% (Auto) 0.1, Absolute Neuts (auto) 6.7, Nucleated RBC % 0, APTT 247.2 H*, Sodium 142, Potassium 4.0, Chloride 116 H, Carbon Dioxide 20.0 L, Anion Gap 6, BUN 85 H, Creatinine 3.20 H, Est GFR (MDRD) Af Amer 24 L, Est GFR (MDRD) Non-Af 20 L, BUN/Creatinine Ratio 26.6 H, Glucose 84, Calcium 7.7 L, Total Bilirubin 0.40 Rhythm: EKG: ECHO: Stress Test: Cardiac Cath: PCI: CT Surgery: Holter monitor: EPS: PPM: CXR: Chest CT Scan: Radiography Diagnostic Testing: Radiology Impression Brain CT 04/12/23 11:12 IMPRESSION: Chronic involutional changes of the brain. 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 Pansinusitis. Electronically Signed: Hang Wood MD at 12:24 EST , Cervical Spine CT 04/12/23 11:12 IMPRESSION: Multilevel degenerative changes, as described above. Electronically Signed: Hang Wood MD at 12:29 EST , Lumbar Spine CT 04/12/23 11:12 IMPRESSION: Multilevel degenerative changes, as described above. Electronically Signed: Hang Wood MD at 12:23 EST , Thoracic Spine CT 04/12/23 11:12 IMPRESSION: Multilevel degenerative changes. No vertebral fracture is seen. Findings suggestive of bibasilar atelectasis. Electronically Signed: Hang Wood MD at 12:25 EST , Chest X-Ray 04/12/23 12:10 IMPRESSION: No acute abnormality is seen. Electronically Signed: Hang Wood MD at 12:30 EST , Echocardiogram 04/12/23 13:39 Interpretation Summary The estimated ejection fraction is 70 %. Unable to assess diastolic dysfunction. Ordering Physician: Tesha Layne Performed By: Juan M De La Garza RCS Physical Exam Const oriented x3 Constitutional Narrative: His voice is hoarse. HEENT normocephalic Eyes EOMs intact bilaterally Neck Neck Narrative: Thick neck no JVD appreciated. Chest inspection of chest normal Resp normal respiratory effort Resp Narrative: Frequent cough with deep respiration. Cardio regular rate, regular rhythm, S1 normal heart sound, S2 normal heart sound, no murmurs, no rub and no gallops Extremity normal to inspection Skin no rashes or lesions noted Neuro Neuro Narrative: Alert and oriented x 3 Psych mental status grossly normal Assessment & Plan Assessment/Plan (1) Cardiac enzymes elevated: PLAN: The patient's enzymes are probably related to his general metabolic state. The 2D echocardiogram shows normal LV function with a systolic ejection fraction of 70%. There is no significant valvular heart disease and no chamber enlargement. From a cardiovascular standpoint I do not feel that any further intervention is indicated. The patient should be continued on his home cardiac medications at discharge. (2) Hypertension: QUALIFIERS: Hypertension type: primary hypertension Qualified Code(s): I10 - Essential (primary) hypertension PLAN: Blood pressure is adequate control given his overall general situation. He should be continued on his home meds as indicated pending his renal function at discharge. (3) Rhabdomyolysis: QUALIFIERS: Rhabdomyolysis type: traumatic Encounter type: initial encounter Qualified Code(s): T79.6XXA - Traumatic ischemia of muscle, initial encounter PLAN: The patient's creatinine remains elevated he is continuing to be sore. Heis continue to be hydrated. From a cardiovascular standpoint no further intervention is indicated at this point in time. His his chronic cardiovascular medications should be reinstituted as tolerated pending the resolution of the rhabdomyolysis. PLAN: Plan Cardiology will sign off at this time. If further help is needed please call. Charges/Coding Visit Charges Inpatient E&M: 32635 Subs Hosp L2 04/13/23 0942 <Electronically signed by Jack Fuller MD> Cosigner Signature (if applicable): CC: ~ Signed [facility] Work Phone: [phone] History and physical note Author Tesha Layne [facility] April 12, 2023 4:38pm Note Date/Time April 12, 2023 1 2:50pm [facility] Medical Records Department [address] [place] [address] History & Physical Exam 04/12/23 1243 MR#: [id number] Acct: [id number] Name: FREDY BOX Rep #:[id number] : 1945 78 From: Tesha Layne MD PCP: Dr. Angela Mera MD Status:ADM IN Location: [facility] [id number] HPI - General General Date of Admission: 04/12/23 Date of Service: 04/12/23 Chief Complaint: weakness, mechanical fall HPI Narrative FREDY BOX, is a 78 M with a PMH as outlined who presents via the ED on 04/12/2023 with a complaint of weakness. He was found on the ground at home. He fell at home last night, and was on the floor overnight. He said his found him on the floor this morning and called EMS. He doesnt remember hitting his head, and denies any nausea, vomiting, dizziness, lightheadedness, chest pain orany other symptoms. Review of systems is otherwise negative. Vitals in the ED were BP of 119/61, VT of 66, RR of 23 nad he was saturating at 95% on 2L of oxygen. CBC showed Hb of 12.6, wbc of 8.8, platelets of 123. CBC showed sodium of 41, bicarb of 18, CR of 3.27 and lactic acid of 2.3. Initial troponin was 3604, and CPK was 40763. Respiratory panel was positive for flu A. CT of the cervical, thoracic and lumbar spine showed multiple level degenerativechanges. He is being admitted to be managed for DIAN in the setting of rhabdomyolysis, debility and non-STEMI. [facility] Medical History (Updated 04/12/23 @ 16:[address] Jack Fuller MD) CVA (cerebral vascular accident) Dementia High cholesterol Hypertension Kidney calculi Home Medications albuterol sulfate 90 mcg/actuation aerosol inhaler 2 puff inhalation Q4H PRN wheezing 04/12/23 [History Last Taken Unknown] allopurinol 300 mg tablet 300 mg PO DAILY gout 04/12/23 [History Last Taken 04/11/23] aspirin 81 mg capsule 81 mg PO DAILY heart health 04/12/23 [History Last Taken 04/11/23] atorvastatin 20 mg tablet 20 mg PO DAILY cholesterol 04/12/23 [History Last Taken 04/11/23] benzonatate 100 mg capsule 100 mg PO TID PRN PRN cough 04/12/23 [History Last Taken Unknown] cetirizine 10 mg tablet 10 mg PO DAILY PRN allergy symptoms 04/12/23 [History Last Taken Unknown] donepezil 10 mg tablet 10 mg PO QHS dementia 04/12/23 [History Last Taken 04/11/23] losartan 50 mg-hydrochlorothiazide 12.5 mg tablet 1 tab PO DAILY blood pressure 04/12/23 [History Last Taken 04/11/23] memantine 5 mg tablet 5 mg PO BID dementia 04/12/23 [History Last Taken 04/11/23] methylprednisolone 4 mg tablets in a dose pack 4 mg PO steriod 04/12/23 [History Last Taken Unknown] metoprolol tartrate 25 mg tablet 25 mg PO BID blood pressure 04/12/23 [History Last Taken 04/11/23] tamsulosin 0.4 mg capsule 0.4 mg PO DAILY urination 04/12/23 [History Last Taken 04/11/23] timolol maleate 0.5 % eye drops 1 drp ophthalmic (eye) BID eye health 04/12/23 [History Last Taken 04/11/23] Allergy/AdvReac Type Severity Reaction Status Date / Time No Known Allergies Allergy Verified 04/12/23 11:22 Family History unable to obtain Surgical History (Updated 04/12/23 @ 16:[address] Jack Fuller MD) History of heart artery stent Surgical History unable to obtain Social History Smoking Status: Never smoker ROS Constitutional Constitutional: Reports fatigue, malaise and weakness; Denies anorexia, chills or fever(s) Eyes Eyes: Denies change in vision ENT HEENT: Denies dysphagia Cardiovascular Cardiovascular: Denies chest pain, edema, orthopnea, palpitations, paroxysmal nocturnal dyspnea or syncope Respiratory/Chest Respiratory/Chest: Denies cough, shortness of breath at rest, shortness of breath with exertion or wheezing Gastrointestinal Gastrointestinal: Denies abdominal pain, diarrhea, dyspepsia, nausea or vomiting Genitourinary Genitourinary: Denies dysuria Musculoskeletal Musculoskeletal: Reports muscle weakness; Denies back pain, extremity pain or joint pain Integumentary Integumentary: Denies dry skin Neurologic Neurologic: Reports confusion and weakness; Denies dizziness, focal weakness, headache(s), numbness or seizures Psychiatric Psychiatric: Denies anxiety Vital Signs Vital Signs Vital Signs: 04/12/23 10:35 04/12/23 10:48 04/12/23 10:49 Temperature 99 F Temperature Source Temporal Pulse Rate 89 86 Respiratory Rate 12 26 H Respiratory Effort Normal Non-Labored Respiratory Pattern Normal Blood Pressure 74/49 L 90/50 L Blood Pressure Mean 57 63 Pulse Ox 92 93 Oxygen Delivery Method Room Air Room Air Oxygen Flow Rate (L/min) 04/12/23 11:00 04/12/23 11:24 04/12/23 11:55 Temperature Temperature Source Pulse Rate 90 73 69 Respiratory Rate 27 H 24 H 20 H Respiratory Effort Respiratory Pattern Blood Pressure 80/59 L 93/57 L 119/61 Blood Pressure Mean 66 69 80 Pulse Ox 94 88 92 Oxygen Delivery Method Room Air Room Air Nasal Cannula Oxygen Flow Rate (L/min) 2 04/12/23 12:07 Temperature Temperature Source Pulse Rate 66 Respiratory Rate 23 H Respiratory Effort Respiratory Pattern Blood Pressure 119/61 Blood Pressure Mean 80 Pulse Ox 95 Oxygen Delivery Method Nasal Cannula Oxygen Flow Rate (L/min) 2 Weight Weight: 203 lb 0.732 oz Body Mass Index (BMI) 30.9 Physical Exam Const alert and oriented x3 Constitutional Narrative: frail, weak General Appearance: cooperative HEENT normocephalic and head/scalp atraumatic Mouth: dry mucous membranes Eyes EOMs intact bilaterally Neck no lymphadenopathy and supple Lymph Lymphatic: no lymphadenopathy noted and no lymphedema noted Resp normal respiratory effort, normal air movement and clear to auscultation bilaterally Cardio regular rate, regular rhythm, S1 normal heart sound, S2 normal heart sound and no murmurs GI normal to inspection, nondistended, normoactive bowel sounds, soft to palpation,non-tender and non-distended Extremity normal capillary refill, no clubbing, cyanosis or edema and no calf tenderness General Extremity: no tenderness to palpation of joints or extremities Skin General Skin Exam: no breakdown Neuro CN's II-XII intact bilaterally, no focal motor deficits, no sensory deficits noted and deep tendon reflexes 2+ bilaterally Motor Exam: strength 5/5 throughout and general weakness Psych thought process normal and cooperative Appearance: appropriate Results Lab / Micro Data 04/12/23 11:00 04/12/23 11:00 Labs: Laboratory Results - last 24 hr 04/12/23 11:00: WBC 8.8, RBC 4.08 L, Hgb 13.6, Hct 41.1, MCV 100.7 H, MCH 33.3 H, MCHC 33.1, RDW Std Deviation 51.8 H, RDW Coeff of Ese 14.1, Plt Count 123 L, MPV 9.8, Immature Gran % (Auto) 0.300, Neut % (Auto) 84.0 H, Lymph % (Auto) 6.2 L, [place] % (Auto) 9.4, Eos % (Auto) 0.0, Baso % (Auto) 0.1, Absolute Neuts (auto)7.4, Absolute Lymphs (auto) 0.54 L, Nucleated RBC % 0, Differential Comment COMMENT, Sodium 141, Potassium 4.0, Chloride 112 H, Carbon Dioxide 18.0 L, AnionGap 11, BUN 69 H, Creatinine 3.27 H, Estim Creat Clear Calc 20.51, Est GFR (MDRD) Af Amer 24 L, Est GFR (MDRD) Non-Af 20 L, BUN/Creatinine Ratio 21.1 H, Glucose 93, Lactic Acid 2.3 H*, Calcium 8.7, Total Bilirubin 0.70, AST 576 H, ALT 162 H, Alkaline Phosphatase 85, Total Creatine Kinase 26625 H, Troponin I High Sens 3604 H*, Total Protein 7.3, Albumin 3.1 L, Globulin 4.2, Albumin/Globulin Ratio 0.7 L, Lipase 42 Micro: Microbiology 04/12/23 11:18 Mucosa - Nasopharyngeal SARS-CoV-2, Influenza & RSV (PCR) - Final Influenzae A Imagaing Radiology Impression Brain CT 04/12/23 11:12 IMPRESSION: Chronic involutional changes of the brain. 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 Pansinusitis. Electronically Signed: Hang Wood MD at 12:24 EST , Cervical Spine CT 04/12/23 11:12 IMPRESSION: Multilevel degenerative changes, as described above. Electronically Signed: Hang Wood MD at 12:29 EST , Lumbar Spine CT 04/12/23 11:12 IMPRESSION: Multilevel degenerative changes, as described above. Electronically Signed: Hang Wood MD at 12:23 EST , Thoracic Spine CT 04/12/23 11:12 IMPRESSION: Multilevel degenerative changes. No vertebral fracture is seen. Findings suggestive of bibasilar atelectasis. Electronically Signed: Hang Wood MD at 12:25 EST , Chest X-Ray 04/12/23 12:10 IMPRESSION: No acute abnormality is seen. Electronically Signed: Hang Wood MD at 12:30 EST , Assessment & Plan Assessment/Plan (1) Cardiac enzymes elevated: (2) Rhabdomyolysis: QUALIFIERS: Rhabdomyolysis type: traumatic Encounter type: initial encounter Qualified Code(s): T79.6XXA - Traumatic ischemia of muscle, initial encounter PLAN: Plan #Rhabdomyolysis due to mechanical fall * Patient states he fell on the floor. He does not member whether he passed out or not but knows he was on the floor at least overnight. CPK is more than 28,000. * Creatinine is also elevated. * Hydrate aggressively with IV fluid normal saline at 150 cc/h. Trend CPK. * PT OT on board. Fall precautions. * #Non-STEMI * Likely a type II non-STEMI in light of DIAN and patient's mechanical fall. Initial troponin was 3604 and trended down to 3095. * EKG showed no acute ST changes. * 2D echo ordered. Will consult cardiology though this is likely a type II non- STEMI. * P.o. aspirin 81 mg daily. Check lipid panel. * #DIAN * Creatinine is 3.27. Baseline creatinine not known. Likely prerenal due to patient being on the floor for about 12 hours and also CPK being elevated in setting of rhabdomyolysis. * Hydrate aggressively with IV fluids. * Trend creatinine. If creatinine does not improve, consult nephrology. * #History of CAD s/p CABG: On aspirin and statin. #Dementia: On donepezil #Hypertension: Hold losartan and hydrochlorothiazide on account of DIAN and rhabdomyolysis. IV hydralazine as needed. Also on metoprolol. #BPH: On Flomax DVT prophylaxis: Heparin CODE STATUS: Full code * Patient counseled extensively about different types of CODE STATUS including full code, DNR CCA and DNR CCA. * Patient elects to be full code. Total [id number] time 17 minutes. Charges/Coding Visit Charges Inpatient E&M: 04318 Init Hosp L3 Procedures Hospitalists Procedures: 39563 Advncd Care Plan 30 Min 04/12/23 1638 <Electronically signed by Tesha Layne MD> Cosigner Signature (if applicable): CC: Dr. Tesha Layne MD; Dr. Angela Mera MD~ Signed [facility] Work Phone: [phone]) 255-689401-25-2024 Consult note Author Jack Fuller [facility] April 12, 2023 4:05pm Note Date/Time April 12, 2023 4 :05pm [facility] Medical Records Department [address] [place] [address] Consultation - Cardiology 04/12/23 1550 MR#: [id number] Acct: [id number] Name: FREDY BOX Rep #:[id number] : 1945 78 From: Jack Fuller MD PCP: Dr. Angela Mera MD Status:ADM IN Location: [place] [address] Assessment & Plan Assessment/Plan (1) Rhabdomyolysis: QUALIFIERS: Rhabdomyolysis type: traumatic Encounter type: initial encounter Qualified Code(s): T79.6XXA - Traumatic ischemia of muscle, initial encounter PLAN: Patient CPK is 28,000 in the face of acute renal failure. The patient is being treated by the primary service for the rhabdomyolysis. (2) Coronary arteriosclerosis after percutaneous transluminal coronary angioplasty (PTCA): PLAN: Status post stenting in [facility] in 2010 the patient is not aware of the vessels utilized but he does think there were 3 stents deployed. 2D echocardiogram is being performed. At this point in time given his CPK of 28,000 and his acute renal failure and a troponin high-sensitivity is 3000 no chest discomfort and no definitive EKG ischemic changes I would recommend we treat this conservatively with medical therapy. (3) Cardiac enzymes elevated: PLAN: See #2 above. The patient's troponin is 3000 and CPK is 28,000. He also has symptoms of acute renal failure and hepatic congestion with elevated LFTs BUN and creatinine being elevated and lactic acidosis. Will evaluate the patient's 2D echocardiogram for his LV function and use this to guide medical therapy. At this point in time do not feel the invasive evaluation is indicated. I discussed this in detail with the patient and the risk of contrastexposure in the face of his rhabdomyolysis and acute renal failure hepatic insufficiency with a lack of overt EKG changes would make the risk greater than the benefit in my opinion of proceeding with invasive evaluation at this time. PLAN: Plan Continue with the conservative management as long as the patient's EKG remained stable. Continue with aggressive secondary risk factor modifications including reinstitution of his medical therapy following clearance of the rhabdomyolysis. We will follow along as directed. HPI Consult Data Date of Consult: 04/12/23 HPI Narrative Reason for Consultation: Elevated troponins. HPI Narrative: FREDY BOX, is a 78 M who presents after being found down by his . Apparently the found the patient after he had fallen last evening and laid in the floor all night long. The patient presented to the emergency department and was diagnosed with rhabdomyolysis CPK of 28,000. The patient is also in acute renal failure with a BUN of 69 creatinine 3.27 and a GFR in the 20 range. He has a lactic acidosis of 2.3 he is not diabetic LFTs elevated with AST of 576and ALT of 162. The patient does carry history of dementia he has known coronary disease status post remote stenting in [facility] in 2010. He says he had 3 stents but he does not know the location of the stents. Patient is EKG in the emergency department showed a normal sinus rhythm with nonspecificST-T wave changes. These are really minor changes. Serial EKGs did not show any evolution of the EKG. Initial high-sensitivity troponin was 3095. The patient currently denies any chest discomfort he reports he is sore all over. Hedenies any PND orthopnea he does not know if he passed out or if he tripped and fell he is knows he could not get up once he was on the floor. An echocardiogram is being performed at this time. Grossly the LV function looks to be adequately preserved. The valves had not been interrogated at the time of my examination. [facility] Medical History (Updated 04/12/23 @ 16:[address] Jack Fuller MD) CVA (cerebral vascular accident) Dementia High cholesterol Hypertension Kidney calculi Home Medications albuterol sulfate 90 mcg/actuation aerosol inhaler 2 puff inhalation Q4H PRN wheezing 04/12/23 [History Last Taken Unknown] allopurinol 300 mg tablet 300 mg PO DAILY gout 04/12/23 [History Last Taken 04/11/23] aspirin 81 mg capsule 81 mg PO DAILY heart health 04/12/23 [History Last Taken 04/11/23] atorvastatin 20 mg tablet 20 mg PO DAILY cholesterol 04/12/23 [History Last Taken 04/11/23] benzonatate 100 mg capsule 100 mg PO TID PRN PRN cough 04/12/23 [History Last Taken Unknown] cetirizine 10 mg tablet 10 mg PO DAILY PRN allergy symptoms 04/12/23 [History Last Taken Unknown] donepezil 10 mg tablet 10 mg PO QHS dementia 04/12/23 [History Last Taken 04/11/23] losartan 50 mg-hydrochlorothiazide 12.5 mg tablet 1 tab PO DAILY blood pressure 04/12/23 [History Last Taken 04/11/23] memantine 5 mg tablet 5 mg PO BID dementia 04/12/23 [History Last Taken 04/11/23] methylprednisolone 4 mg tablets in a dose pack 4 mg PO steriod 04/12/23 [History Last Taken Unknown] metoprolol tartrate 25 mg tablet 25 mg PO BID blood pressure 04/12/23 [History Last Taken 04/11/23] tamsulosin 0.4 mg capsule 0.4 mg PO DAILY urination 04/12/23 [History Last Taken 04/11/23] timolol maleate 0.5 % eye drops 1 drp ophthalmic (eye) BID eye health 04/12/23 [History Last Taken 04/11/23] Allergy/AdvReac Type Severity Reaction Status Date / Time No Known Allergies Allergy Verified 04/12/23 11:22 unable to obtain Surgical History (Updated 04/12/23 @ 16:[address] Jack Fuller MD) History of heart artery stent unable to obtain Social History Smoking Status: Never smoker ROS ROS Narrative It was difficult to obtain an adequate review of systems at this time. Review of Systems ROS Unobtainable: due to mental condition Physical Exam Const alert Constitutional Narrative: The patient is moaning due to the diffuse muscle soreness. The echocardiogram is being performed at this time. HEENT normocephalic Eyes EOMs intact bilaterally Neck no carotid bruits Chest inspection of chest normal Resp normal respiratory effort Auscultation: Negative for crackles, rales, rhonchi or wheezes Cardio regular rate, regular rhythm, S1 normal heart sound, S2 normal heart sound, no murmurs, no rub and no gallops Peripheral Pulses: radial pulses present bilateral 2+ and posterior tibial pulses present bilateral 1+ GI soft to palpation Extremity no pedal edema Skin Skin Narrative: The patient is diffusely tender to touch. Neuro Neuro Narrative: The patient is grossly intact but slow to answer questions. Psych cooperative Risk Stratification Risk Stratification Applicable: Yes Age >/= 65: Yes >/= 3 CAD Risk Factors (HTN, HLD, DM, family hx of CAD, or current smoker): Yes Aspirin Use in the Past 7 Days: Yes Severe Angina (>/= episodes in 24 hours): No EKG ST Changes >/= 0.5mm: No Positive Cardiac Marker: Yes RACHEL Risk Stratification Score: 4 RACHEL % Risk: 20% Risk Charges/Coding Visit Charges Inpatient E&M: 45210 Init Hosp L3 Objective Data Vital Signs: Vital Signs Temp Pulse Resp BP Pulse Ox O2 Del Method O2 Flow Rate 97.2 F L 70 18 106/52 L 95 Nasal Cannula 2 04/12/23 13:51 04/12/23 13:51 04/12/23 13:51 04/12/23 13:51 04/12/23 14:51 04/12/23 14:51 04/12/23 14:51 Oxygen Flow Rate (L/min) 2 Oxygen Delivery Method Nasal Cannula Weight: 197 lb 5.019 oz Body Mass Index (BMI) 29.9 Intake & Output: Intake and Output for Last 24 Hours 04/10/23 04/11/23 04/12/23 23:59 23:59 23:59 Intake Total 1999 Balance 1999 Lab / Micro Data Attestation: I reviewed the patient's lab results. 04/12/23 11:00 04/12/23 11:00 Labs: Laboratory Results - last 24 hr 04/12/23 11:00: WBC 8.8, RBC 4.08 L, Hgb 13.6, Hct 41.1, MCV 100.7 H, MCH 33.3 H, MCHC 33.1, RDW Std Deviation 51.8 H, RDW Coeff of Ese 14.1, Plt Count 123 L, MPV 9.8, Immature Gran % (Auto) 0.300, Neut % (Auto) 84.0 H, Lymph % (Auto) 6.2 L, [place] % (Auto) 9.4, Eos % (Auto) 0.0, Baso % (Auto) 0.1, Absolute Neuts (auto)7.4, Absolute Lymphs (auto) 0.54 L, Nucleated RBC % 0, Differential Comment COMMENT, PT Cancelled 04/12/23 11:00: PT 15.0 H, INR Cancelled 04/12/23 11:00: INR 1.2, APTT Cancelled 04/12/23 11:00: APTT 31.7, Sodium 141, Potassium 4.0, Chloride 112 H, Carbon Dioxide 18.0 L, Anion Gap 11, BUN 69 H, Creatinine 3.27 H, Estim Creat Clear Calc 20.51, Est GFR (MDRD) Af Amer 24 L, Est GFR (MDRD) Non-Af 20 L, BUN/Creatinine Ratio 21.1 H, Glucose 93, Hemoglobin A1c 5.6, Lactic Acid 2.3 H*,Calcium 8.7, Total Bilirubin 0.70, AST 576 H, ALT 162 H, Alkaline Phosphatase 85, Total Creatine Kinase 08698 H, Troponin I High Sens 3604 H*, Total Protein 7.3, Albumin 3.1 L, Globulin 4.2, Albumin/Globulin Ratio 0.7 L, Triglycerides 100, Cholesterol 103, LDL Cholesterol 29, VLDL Cholesterol 20, HDL Cholesterol 54, Lipase 42 04/12/23 14:30: Troponin I High Sens 3095 H* Micro: Microbiology 04/12/23 11:18 Mucosa - Nasopharyngeal SARS-CoV-2, Influenza & RSV (PCR) - Final Influenzae A Cardiology Labs/Tests 04/12/23 11:00: WBC 8.8, RBC 4.08 L, Hgb 13.6, Hct 41.1, MCV 100.7 H, MCH 33.3 H, MCHC 33.1, Plt Count 123 L, MPV 9.8, Immature Gran % (Auto) 0.300, Neut % (Auto) 84.0 H, Lymph % (Auto) 6.2 L, [place] % (Auto) 9.4, Eos % (Auto) 0.0, Baso %(Auto) 0.1, Absolute Neuts (auto) 7.4, Nucleated RBC % 0, PT Cancelled 04/12/23 11:00: PT 15.0 H, INR Cancelled 04/12/23 11:00: INR 1.2, APTT Cancelled 04/12/23 11:00: APTT 31.7, Sodium 141, Potassium 4.0, Chloride 112 H, Carbon Dioxide 18.0 L, Anion Gap 11, BUN 69 H, Creatinine 3.27 H, Est GFR (MDRD) Af Amer 24 L, Est GFR (MDRD) Non-Af 20 L, BUN/Creatinine Ratio 21.1 H, Glucose 93, Hemoglobin A1c 5.6, Lactic Acid 2.3 H*, Calcium 8.7, Total Bilirubin 0.70, Triglycerides 100, Cholesterol 103, LDL Cholesterol 29, VLDL Cholesterol 20, HDLCholesterol 54 Rhythm: EKG: ECHO: Stress Test: Cardiac Cath: PCI: CT Surgery: Holter monitor: EPS: PPM: CXR: Chest CT Scan: Radiography Diagnostic Testing: Radiology Impression Brain CT 04/12/23 11:12 IMPRESSION: Chronic involutional changes of the brain. 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 Pansinusitis. Electronically Signed: Hang Wood MD at 12:24 EST , Cervical Spine CT 04/12/23 11:12 IMPRESSION: Multilevel degenerative changes, as described above. Electronically Signed: Hang Wood MD at 12:29 EST , Lumbar Spine CT 04/12/23 11:12 IMPRESSION: Multilevel degenerative changes, as described above. Electronically Signed: Hang Wood MD at 12:23 EST , Thoracic Spine CT 04/12/23 11:12 IMPRESSION: Multilevel degenerative changes. No vertebral fracture is seen. Findings suggestive of bibasilar atelectasis. Electronically Signed: Hang Wood MD at 12:25 EST , Chest X-Ray 04/12/23 12:10 IMPRESSION: No acute abnormality is seen. Electronically Signed: Hang Wood MD at 12:30 EST , EKG Initial EKG: Attestation: I personally reviewed and interpreted this EKG as follows: Interpretation: Patient had normal axis symptoms EKG with normal sinus rhythm. Minor nonspecific ST changes. 04/12/23 1605 <Electronically signed by Jack Fuller MD> Cosigner Signature (if applicable): CC: Dr. Jack Fuller MD; Dr. Angela Mera MD~ Signed [facility] Work Phone: [phone]) 988-546701-25-2024 Discharge summary Author William Valerie [facility] April 12, 2023 3:00pm Note Date/Time April 12, 2023 1 0:47am [facility] Medical Records Department [address] [place] [address] Emergency Department Summary 04/12/23 MR#: [id number] Acct: [id number] Name: FREDY BOX Rep #:[id number] : 1945 78 From: William Gutierrez PCP: Dr. Angela Mera MD Status:ADM IN Location: [place] [address] HPI History of Present Illness Chief Complaint: [facility]ness [facility] Medical History (Updated 04/12/23 @ 14:[address] William Padilla DO) CVA (cerebral vascular accident) Dementia High cholesterol Hypertension Kidney calculi Allergy/AdvReac Type Severity Reaction Status Date / Time No Known Allergies Allergy Verified 04/12/23 11:22 Surgical History (Updated 04/12/23 @ 14:54 by Lolis Meehan) History of heart artery stent Social History Smoking Status: Never smoker EXAM Physical Exam Const Vital Signs: 04/12/23 10:35 04/12/23 10:48 04/12/23 10:49 Temperature 99 F Temperature Source Temporal Pulse Rate 89 86 Respiratory Rate 12 26 H Respiratory Effort Normal Non-Labored Respiratory Pattern Normal Blood Pressure 74/49 L 90/50 L Blood Pressure Mean 57 63 Pulse Ox 92 93 Oxygen Delivery Method Room Air Room Air Oxygen Flow Rate (L/min) 04/12/23 11:00 04/12/23 11:24 04/12/23 11:55 Temperature Temperature Source Pulse Rate 90 73 69 Respiratory Rate 27 H 24 H 20 H Respiratory Effort Respiratory Pattern Blood Pressure 80/59 L 93/57 L 119/61 Blood Pressure Mean 66 69 80 Pulse Ox 94 88 92 Oxygen Delivery Method Room Air Room Air Nasal Cannula Oxygen Flow Rate (L/min) 2 04/12/23 12:07 04/12/23 12:51 Temperature Temperature Source Pulse Rate 66 69 Respiratory Rate 23 H 22 H Respiratory Effort Respiratory Pattern Blood Pressure 119/61 110/67 Blood Pressure Mean 80 81 Pulse Ox 95 92 Oxygen Delivery Method Nasal Cannula Oxygen Flow Rate (L/min) 2 [facility] MDM Narrative Medical decision making narrative: HISTORY OF PRESENT ILLNESS: 78-year-old female presents with diffuse weakness, flulike symptoms. States wasseen at outside ED for similar symptoms. States patient been so weak that they have not been able to get up off the floor. Notes patient was covered in stool this morning. Patient also endorses severe back pain. Unable to provide a reliabe hx of how he fell to the ground or how long he was down. Patient denies any saddle anesthesia, urinary retention, bowel or bladder incontinence, lower extremity weakness, fever or IV drug use, no recent spinal manipulation or surgery, no recent urinary catheterization. REVIEW OF SYSTEMS: Pertinent positives: Weakness, hypotension, back pain Pertinent negatives: Cough, fever, chest pain, trouble urinating PHYSICAL EXAM: Nursing triage notes reviewed, Vital signs reviewed Constitutional: please see mdm HENT: Profoundly dry oral mucosa Eyes: Pupils equal round and reactive to light, Extraocular muscles intact Neck: No stridor, no JVD, full neck ROM Lungs: Clear to auscultation, No wheezing or rales. No increased work of breathing, no conversational dyspnea, no accessory muscle use, no nasal flaring. No respiratory distress noted Heart: Regular rate and rhythm, No murmurs, No rubs and No gallops, 2+ distal pulses (radial, femoral, posterior tibial) in all extremities Abdomen: Soft, there is no tenderness, rigidity, rebound or guarding, no obviousperitoneal signs, no palpable pulsatile abdominal masses, no auscultated abdominal bruit : No CVAT Extremities: No edema Back: Diffuse tenderness to palpation, some bruising over the left lateral lumbar region, no step-offs or deformities Neuro: Patient was alert, oriented x 3, moves all 4 extremities, and sensation all 4 extremities, no lateralizing findings Skin: No rash or lesions noted MEDICAL DECISION MAKING: Chief Complaint: Weakness, hypotension External records reviewed: No prior records noted in our system or in clinisync Factors affecting care: Unknown per the patient high cholesterol, hypertension states he is on a blood thinner although he cannot detail why Social determinants of health: Elderly History obtained from others: EMS Consults: Internal medicine MDM Narrative: Patient was initially hypotensive otherwise hemodynamically stable, afebrile andnontoxic-appearing I considered the following differential diagnosis: Rhabdomyolysis, dehydration,acute kidney injury, sepsis, traumatic injury of the head, cervical spine, thoracic or lumbar spine, electrolyte disturbance, acute kidney injury, infectious or metabolic encephalopathy I obtained a broad lab and imaging workup to further elucidate etiology of patient's complaints. Hypotension was treated 1 L normal saline. He was given fentanyl for pain given its relative hemodynamic stability. ALL IMAGES (IF OBTAINED) HAVE BEEN PERSONALLY REVIEWED AND INTERPRETED BY MYSELF. EKG with normal sinus rhythm, left axis deviation, normal intervals, no STEMI CBC with no leukocytosis, there is mild thrombocytopenia but no significant anemia noted Chemistry panel shows evidence of significant dehydration which is consistent with his clinical exam, acute kidney injury, Initial lactate elevated concerning for endorgan hypoperfusion LFTs elevated alcohol use pattern with AST being approximately double ALT Troponin grossly elevated concerning for myocardial ischemia suspected type II demand ischemia given lack of chest pain, EKG changes Influenza A positive I have personally reviewed the patient's chest x-ray. Chest x-ray is unremarkable for pulmonary edema, pneumothorax, pneumonia or focal cardiopulmonary abnormality. CK elevated consistent rhabdomyolysis CT scan of the head, cervical spine, thoracic and lumbar spine are negative for acute traumatic injury The synthesis of the patient's history, physical exam, labs images suggest profound dehydration likely secondary to influenza A infection leading to weakness and fall resulting in and subsequent rhabdomyolysis and acute renal failure. Patient will need inpatient admission for further hydration, pain control and serial cardiac biomarkers. The patient and/or family, caregivers express understanding. The patient and/orfamily, caregivers agrees with the plan. Shared decision making: I will have a discussion with the patient and or visitors regarding risk/benefits of further testing or admission. They will be made aware of of the risk/benefits inherent in this decision they will be given the opportunity to voice understanding. Total critical care time today provided was at least 0 minutes. This excludes separately billable procedures. Critical care time (if documented) is secondary to the patient having high probability of clinically significant/life threatening deterioration in the patient's condition which required my urgent intervention. Impression: 1. Diffuse weakness 2. Hypotension 3. Dehydration 4. Thrombocytopenia 5. NSTEMI 6. Rhabdomyolysis 7. Acute renal failure Dispo: admit Lab Data Labs: Laboratory Results - last 24 hr 04/12/23 04/12/23 04/12/23 11:00 11:00 11:00 WBC 8.8 RBC 4.08 L Hgb 13.6 Hct 41.1 MCV 100.7 H MCH 33.3 H MCHC 33.1 RDW Std Deviation 51.8 H RDW Coeff of Ese 14.1 Plt Count 123 L MPV 9.8 Immature Gran % (Auto) 0.300 Neut % (Auto) 84.0 H Lymph % (Auto) 6.2 L [place] % (Auto) 9.4 Eos % (Auto) 0.0 Baso % (Auto) 0.1 Absolute Neuts (auto) 7.4 Absolute Lymphs (auto) 0.54 L Nucleated RBC % 0 Differential Comment COMMENT PT Cancelled 15.0 H INR Cancelled 1.2 APTT Cancelled Sodium Potassium Chloride Carbon Dioxide Anion Gap BUN Creatinine Estim Creat Clear Calc Est GFR (MDRD) Af Amer Est GFR (MDRD) Non-Af BUN/Creatinine Ratio Glucose Hemoglobin A1c Lactic Acid Calcium Total Bilirubin AST ALT Alkaline Phosphatase Total Creatine Kinase Troponin I High Sens Total Protein Albumin Globulin Albumin/Globulin Ratio Triglycerides Cholesterol LDL Cholesterol VLDL Cholesterol HDL Cholesterol Lipase 04/12/23 11:00 WBC RBC Hgb Hct MCV MCH MCHC RDW Std Deviation RDW Coeff of Ese Plt Count MPV Immature Gran % (Auto) Neut % (Auto) Lymph % (Auto) [place] % (Auto) Eos % (Auto) Baso % (Auto) Absolute Neuts (auto) Absolute Lymphs (auto) Nucleated RBC % Differential Comment PT INR APTT 31.7 Sodium 141 Potassium 4.0 Chloride 112 H Carbon Dioxide 18.0 L Anion Gap 11 BUN 69 H Creatinine 3.27 H Estim Creat Clear Calc 20.51 Est GFR (MDRD) Af Amer 24 L Est GFR (MDRD) Non-Af 20 L BUN/Creatinine Ratio 21.1 H Glucose 93 Hemoglobin A1c 5.6 Lactic Acid 2.3 H* Calcium 8.7 Total Bilirubin 0.70 AST 576 H ALT 162 H Alkaline Phosphatase 85 Total Creatine Kinase 60407 H Troponin I High Sens 3604 H* Total Protein 7.3 Albumin 3.1 L Globulin 4.2 Albumin/Globulin Ratio 0.7 L Triglycerides 100 Cholesterol 103 LDL Cholesterol 29 VLDL Cholesterol 20 HDL Cholesterol 54 Lipase 42 Radiography Diagnostic Testing: Clinical Impression(s) from Imaging Studies Brain CT 04/12/23 11:12 IMPRESSION: Chronic involutional changes of the brain. 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 Pansinusitis. Electronically Signed: Hang Wood MD at 12:24 EST , Cervical Spine CT 04/12/23 11:12 IMPRESSION: Multilevel degenerative changes, as described above. Electronically Signed: Hang Wood MD at 12:29 EST , Lumbar Spine CT 04/12/23 11:12 IMPRESSION: Multilevel degenerative changes, as described above. Electronically Signed: Hang Wood MD at 12:23 EST , Thoracic Spine CT 04/12/23 11:12 IMPRESSION: Multilevel degenerative changes. No vertebral fracture is seen. Findings suggestive of bibasilar atelectasis. Electronically Signed: Hang Wood MD at 12:25 EST , Chest X-Ray 04/12/23 12:10 IMPRESSION: No acute abnormality is seen. Electronically Signed: Hang Wood MD at 12:30 EST , Discharge Plan Disposition Disposition: Acute Care Hospital [facility] Discharge Date/Time: 04/12/23 13:32 What to do if you have Problems For any increased pain, shortness of breath, bleeding, nausea or vomiting, chestpain, or any unexpected problems, contact your Primary Care Provider. Call [facility] ([phone]) or report to the closest Emergency Room. Call 911 if necessary. 04/12/23 1500 <Electronically signed by William Padilla DO> Cosigner Signature (if applicable): CC: Dr. Angela Mera MD ~ Signed [facility] Work Phone: 1(453) 352-938202-01-2022 History of Present illness Narrative* Rosa Khan MD - 04/19/2021 1:30 PM EST Subjective Patient ID: Fredy Box is a 76 y.o. male. Chief Complaint: Follow-up CAD 76-year-old man with CAD, hypertension, hyperlipidemia, BROWN. Patient had 3 drug- eluting stents to the mid LAD in 2010. BROWN is treated with CPAP mask. When I saw the patient a year ago, he reported that he was having trouble with short-term memory over the prior 2 years. We referred him to Dr. Salazar for evaluation but patient chose not to keep the appointment. He had blood pressure checked on vis it with Dr. Cam yesterday and his blood [...] 60 Resp 16 Ht 1.727 m (5' 8) Wt 96.1 kg (211 lb 12.8 oz) [...] The primary encounter diagnosis was Atherosclerosis of standing rock coronary artery of standing rock heart without angina pectoris. Diagnoses of Essential (primary) hypertension and Mixed hyperlipidemia were alsopertinent to this visit. Assessment 1. CAD, 3 [...] file as of 04/19/2021. [facility] Instructions* Patient Instructions* Kimmie Marcelino CMA - 04/19/2021 1:30 PM EST Images from [...] They have little nutritional value. They are alsohigh in things like fats and salt. Read food labels to find out how much of these the foods you eathave. Always pick whole foods first. Food Choices [...] or canned meat, fish, or poultry, such asbacon, chipped beef, cold cuts, hot dogs, sausages, [...] Pepper, herbs, and spices; vinegar, lemon, or [place]sh[place] juice Low-fat frozen desserts (yogurt, sherbet, fruit [...] We must balance the calories we take inwith the energy we burn. We burn energy [...] omega-3 fatty acids that may have some heartbenefits. The fish highest in omega-3 fatty acids and lowest in mercury are salmon, mijares, mackerel, sardines, and canned chunk light tuna. Do not eat fast food and convenience food. They tend to be high in saturated and trans fat and havea lot of added salt. Limit alcohol to [...] needs more flavor, try herbs and spices. Garlicand onion also add a lot of flavor. [...] to make changes. Last Reviewed: February 2020 [facility] [place] Board Mira Gerard MS, RD, LDN Updated: 04/21/2020 [facility] [place] [facility] Future Appointments Appointment Date:08/01/2023 10:30:00 AM Scheduled Provider:ANGELA MERA MD Location:[facility] Appointment Type:PC OV [facility] Evaluation + Plan note Future Appointments Appointment Date:06/01/2023 01:30:00 PM Scheduled Provider:ANGELA MERA MD Location:[facility] Appointment Type:PC OV Follow Up Appointment Date:08/01/2023 10:30:00 AM Scheduled Provider:ANGELA MERA MD Location:[facility] Appointment Type:PC OV Diagnostic Tests Pending * Urine Culture 05/18/23 [facility] evaluation + Plan note Future Appointments Appointment Date:07/04/2023 10:30:00 AM Scheduled Provider: Location:[facility] Appointment Type:PC Nurse Lab Appointment Date:07/13/2023 10:30:00 AM Scheduled Provider:ANGELA MERA MD Location:[facility] Appointment Type:PC OV Appointment Date:09/18/2023 01:30:00 PM Scheduled Provider:ANGELA MERA MD Location:[facility] Appointment Type:PC OV Future Scheduled Tests Laboratory* Uric Acid 06/12/23 * Complete Blood Count 06/12/23 * Complete Metabolic Panel 06/12/23 [facility] [employer] + Plan note Future Appointments Appointment Date:07/13/2023 10:30:00 AM Scheduled Provider:ANGELA MERA MD Location:[facility] Appointment Type:PC OV Appointment Date:09/18/2023 01:30:00 PM Scheduled Provider:ANGELA MERA MD Location:[facility] Appointment Type:PC OV Future Scheduled Tests Laboratory* B-Type Natriuretic Peptide 06/29/23 * Uric Acid 06/12/23 * Complete Blood Count 06/12/23 * Lipid Profile 06/29/23 * Complete Metabolic Panel 06/12/23 [facility] [employer] + Plan note Future Appointments Appointment Date:12/19/2023 01:30:00 PM Scheduled Provider:ANGELA MERA MD Location:[facility] Appointment Type:PC OV Future Scheduled Tests Laboratory* B-Type Natriuretic Peptide 06/29/23 * Uric Acid 06/12/23 * Complete Blood Count 06/12/23 * Lipid Profile 06/29/23 * Complete Metabolic Panel 06/12/23 [facility] evaluation + Plan note Future Appointments Appointment Date:12/19/2023 01:30:00 PM Scheduled Provider:ANGELA MERA MD Location:[facility] Appointment Type:PC OV Future Scheduled Tests Laboratory* B-Type Natriuretic Peptide 06/29/23 * Complete Blood Count 11/29/23 * Sedimentation Rate Automated 11/29/23 * Complete Metabolic Panel 11/29/23 [facility] Evaluation + Plan note Future Appointments Appointment Date:04/23/2024 01:00:00 PM Scheduled Provider:ANGELA MERA MD Location:[facility] Appointment Type:PC OV Future Scheduled Tests Laboratory* B-Type Natriuretic Peptide 06/29/23 * Complete Blood Count 11/29/23 * Sedimentation Rate Automated 11/29/23 * Complete Metabolic Panel 11/29/23 [facility] Evaluation + Plan note Future Appointments Appointment Date:10/21/2024 01:30:00 PM Scheduled Provider:ANGELA MERA MD Location:[facility] Appointment Type:PC OV Appointment Date:12/11/2024 11:00:00 AM Scheduled Provider:ANGELA MERA MD Location:[facility] Appointment Type:PC OV Future Scheduled Tests Laboratory* Complete Blood Count 11/29/23 * Lipid Profile 10/21/24 * Sedimentation Rate Automated 11/29/23 * Complete Metabolic Panel 11/29/23 * Complete Metabolic Panel 10/21/24 [facility] Future Appointments Appointment Date:10/21/2024 01:30:00 PM Scheduled Provider:ANGELA MERA MD Location:[facility] Appointment Type:PC OV Appointment Date:12/11/2024 11:00:00 AM Scheduled Provider:ANGELA MERA MD Location:[facility] Appointment Type:PC OV Future Scheduled Tests Laboratory* Complete Blood Count 11/29/23 * Complete Blood Count 08/20/24 * Lipid Profile 10/21/24 * Sedimentation Rate Automated 11/29/23 * Complete Metabolic Panel 11/29/23 * Complete Metabolic Panel 10/21/24 [facility] Evaluation + Plan note Future Appointments Appointment Date:10/21/2024 01:30:00 PM Scheduled Provider:ANGELA MERA MD Location:[facility] Appointment Type:PC OV Appointment Date:12/11/2024 11:00:00 AM Scheduled Provider:ANGELA MERA MD [facility] Appointment Type: OV Future Scheduled Tests Laboratory* Complete Blood Count 11/29/23 * Complete Blood Count 08/20/24 * Sedimentation Rate Automated 11/29/23 * Complete Metabolic Panel 11/29/23 [facility] Evaluation note* Diagnosis Atherosclerosis of standing rock coronary artery of standing rock heart without angina pectoris- Primary Essential (primary) hypertension Unspecified essential hypertension Mixed hyperlipidemia [facility] Diagnosis Non-pressure chronic ulcer of other part of right lower leg with fat layer exposed PAD (peripheral artery disease) Unspecified peripheral vascular disease [facility] Diagnosis Mild cognitive impairment of uncertain or unknown etiology [facility] assessment information available [facility] Work Phone: Evaluation note* Diagnosis Onset Date Resolution Status DIAN (acute kidney injury) [facility] [place] Cardiac enzymes elevated acu te [id number] acute PSVT (paroxysmal supraventricular tachycardia) acute Rhabdomyolysis acute Hypertension chronic [facility] Work Phone: Evaluation note* Diagnosis Onset Date Resolution Status [id number] chronic PSVT (paroxysmal supraventricular tachycardia) chronic DIAN (acute kidney injury) re solved Cardiac enzymes elevated res olved Rhabdomyolysis resolved [id number] chronic Essential hypertension chron ic Hyperlipidemia chronic MARTIN (dyspnea on exertion) [facility] [place] Fatigue acute [id number] chronic Essential hypertension chron ic Hyperlipidemia chronic [facility] Work Phone: Evaluation note* Diagnosis Onset Date Resolution Status Admit Date Coronary arteriosclerosis af ter percutaneous transluminal coronary angiopla chronic September 18, 2024 1:16pm Hyperlipidemia chronic September 18, 2024 1:16pm [facility] Work Phone: Hospital course Narrative No data available for this section [facility] Hospital Discharge instructions No data available for this section [facility] Progress note No data available for this section [facility] Reason for referral (narrative)* Procedure Authorization (Routine) - Closed Specialty Diagnoses / Procedures Referred By Contac t Referred To Contact Radiology Diagnoses Mild cognitive impairment of uncertain or unknown etiology Procedures MRI Brain Without IV Contrast Milli Jc [facility] [address] [address] Referral ID Status Reason Start Date Expiration Date Visits Re quested Visits Authorized [id number] Closed 12/29/2021 03/18/2022 1 1 [facility]No [facility] for [facility] Reason for visit Narrative* Procedure Authorization (Routine) - Closed Specialty Diagnoses / Procedures Referred By Contac t Referred To Contact Radiology Diagnoses Mild cognitive impairment of uncertain or unknown etiology Procedures [place] [address] [place] [address] [address] Referral ID Status Reason Start Date Expiration Date Visits Re quested Visits Authorized [id number] Closed 12/29/2021 03/18/2022 1 1 [facility] Hospital Course * Ben Simental MD [...] may also experience some cramping or gas pains. The distention and discomfort should subside as [...] Where can you learn more? Go to [email or web address] Enter U654 in the search box to learn more about High-Fiber Diet: Care Instructions. Current as of: November 06, 2018 Content Version: 12.3 [id number] [employer]. Care instructions adapted under license by your healthcare professional. If you have questions about a medical condition or this instruction, always ask your healthcare professional. [employer] disclaims any warranty or liability for your [...] FoundDocuments on File Type Date Recorded Patient Unit Manager Expl anation Advance Directives and Livin g Will Advance Directives and Livin g Will 12/13/2010 3:51 PM Power of Computer Systems Technician Latest Code Status on File Code Status Date Activated Date Inactivated Comments Full Code 02/19/2019 9:11 AM Full Code 12/14/2015 1:10 PM 12/14/2015 10:45 PM Full Code 12/13/2010 3:43 PM 12/14/2010 9:33 PM Documents on File Type Date Recorded Patient Unit Manager Expl anation Advance Directives and Livin g Will Advance Directives and Livin g Will 12/13/2010 3:51 PM Power of Computer Systems Technician Latest Code Status on File Code Status Date Activated Date Inactivated Comments Full Code 02/19/2019 9:11 AM 02/19/2019 5:28 PM Full Code 12/14/2015 1:10 PM 12/14/2015 10:45 PM Full Code 12/13/2010 3:43 PM 12/14/2010 9:33 PM Latest Code Status on File Code Status Date Activated Date Inactivated Comments Full Code 02/19/2019 9:11 AM 02/19/2019 5:28 PM Documents on File Type Date Recorded Patient Unit Manager Expl anation Advance Directives and Livin g Will Power of Computer Systems Technician Advance Directives and Livin g Will 12/13/2010 3:51 PM Documents on File Type Date Recorded Patient Unit Manager Expl anation Advance Directives and Living Will Power of Computer Systems Technician Documents on File Type Date Recorded Patient Unit Manager Expl anation Advance Directives and Livin g Will Power of Computer Systems Technician DNR Documentation Advance Directives and Livin g Will 12/13/2010 3:51 PM Documents on File Type Date Recorded Patient Unit Manager Expl anation Advance Directives and Living Will Power of Computer Systems Technician Advance Directive Response Recorded Date/ Time Living Will Yes April 12 10:51am Power of Computer Systems Technician Yes April 12, 2023 10:51am Name of Medical Power of Computer Systems Technician April 12, 2023 10:51am Advance Directive Response Recorded Date/ Time Name of Medical Power of Computer Systems Technician April 12, 2023 2:09pm Living Will Yes April 12 2:09pm Power of Computer Systems Technician Yes April 12, 2023 2:09pm Advance Directive Response Recorded Date/ Time Name of Medical Power of Computer Systems Technician April 12, 2023 3:09pm Living Will Yes April 12 3:09pm Power of Computer Systems Technician Yes April 12, 2023 3:09pm Reason for Referral Status Reason Specialty Diagnoses / Procedures Referre d By Contact Referred To Contact Closed Radiology Diagnoses Kidney stone Microhematuria Procedures CT Abdomen Pelvis With and Without IV Contrast Ginny Hylton APRN STEEL WOOL MACHINE OPERATOR [address] [facility] [address] [place] [address] General Radiology [address] [place] [address] Specialty Diagnoses / Procedures Referred By Contac t Referred To Contact Diagnoses Non-pressure chronic ulcer of other part of right lower leg with fat layer exposed PAD (peripheral artery disease) Procedures VAS ANKLE BRACHIAL INDEX Darion Bass, [address] [address] Darion Bass, DO [address] [place] [phone] Referral ID Status Reason Start Date Expiration Date Visits Re quested Visits Authorized [id number] Closed 11/23/2021 11/23/2022 1 1 Summary Purpose Family History No Family History Records Found Relationship Condition Age at Onset Recorded Date/T nicolette father Myocardial infarction Unknown brother Malignant neoplasm Unknown sister Malignant neoplasm Unknown mother Disorder of lung Unknown Chief Complaint and Reason for Visit Chief Complaint RHABDOMYOLYSIS NONST [place] Chief Complaint RHABDOMYOLYSIS NONST [place] RHABDOMYOLYSIS NONSTEMI RHABDOMYOLYSIS NONSTEMI RHABDOMYOLYSIS NONSTEMI RHABDOMYOLYSIS NONSTEMI RHABDOMYOLYSIS NONSTEMI RHABDOMYOLYSIS NONSTEMI RHABDOMYOLYSIS NONSTEMI RHABDOMYOLYSIS NONSTEMI RHABDOMYOLYSIS NONSTEMI Reason for Visit DIAN (acute kidney in jury) Cardiac enzymes elevated [id number] PSVT (paroxysmal supraventricular tachycardia) Rhabdomyolysis Hypertension Chief Complaint RHABDOMYOLYSIS NONST [place] RHABDOMYOLYSIS NONSTEMI RHABDOMYOLYSIS NONSTEMI RHABDOMYOLYSIS NONSTEMI RHABDOMYOLYSIS NONSTEMI RHABDOMYOLYSIS NONSTEMI RHABDOMYOLYSIS NONSTEMI RHABDOMYOLYSIS NONSTEMI RHABDOMYOLYSIS NONSTEMI RHABDOMYOLYSIS NONSTEMI ADMISSION EXAM LABWORK ADMISSION EXAM LABWORK LAB WORK [facility]/P [facility] 04/17/23 F/U PER PCP INT LABS Reason for Visit [id number] PSVT (paroxysmal supraventricular tachycardia) DIAN (acute kidney injury) Cardiac enzymes elevated Rhabdomyolysis [id number] Essential hypertension Hyperlipidemia MARTIN (dyspnea on exertion) Fatigue [id number] Essential hypertension Hyperlipidemia Chief Complaint Admit Date 9 M FU September 18, 2024 1:16p m Reason for Visit Admit Date Coronary arteriosclerosis af ter percutaneous transluminal coronary angiopla September 18, 2024 1:16pm Hyperlipidemia September 18, 2024 1:16p m Chief Complaint Admit Date 9 M FU September 18, 2024 1:16p m INT LABS September 22, 2024 9:13a m Reason for Visit Admit Date Heart failure with preserved ejection fr action September 18, 2024 1:16pm Coronary arteriosclerosis af ter percutaneous transluminal coronary angiopla September 18, 2024 1:16pm Essential hypertension September 18, 2024 1: 16pm Hyperlipidemia September 18, 2024 1:16p m Additional Source Comments Reason for Visit (unrecogniz ed section and content) Status Reason Specialty Diagnoses / Procedures Referred By Contact Referred To Contact Authorized Diagnoses History of colon polyps Z86.010 (ICD-10-CM) - V12.72 (ICD-9-CM) - History of colon polyps Procedures Case Request Operating Room: COLONOSCOPY DIAGNOSTIC VT COLONOSCOPY FLX DX W/COLLJ SPEC WHEN PFRMD [id number] - VT COLONOSCOPY FLX DX W/COLLJ SPEC WHEN PFRMD Tara Ordoñez PA [address] [place], [place] [id number] Reason Comments Information or Advice only Status Reason Specialty Diagnoses / Procedures Referre d By Contact Referred To Contact Closed Radiology Diagnoses Kidney stone Microhematuria Procedures CT Abdomen Pelvis With and Without IV Contrast Ginny Hylton APRN [address] [address] General Radiology [address] [place] [id number] Reason Comments Medication Refill Reason Comments Follow-up 12 month f/u Specialty Diagnoses / Procedures Referred By Contcesar t Referred To Contact Diagnoses Non-pressure chronic ulcer of other part of right lower leg with fat layer exposed PAD (peripheral artery disease) Procedures VAS ANKLE BRACHIAL INDEX Darion Bass, [address] [place] [address] Darion Bass, [address] [place] [address] Referral ID Status Reason Start Date Expiration Date Visits Re quested Visits Authorized [id number] Closed 11/23/2021 11/23/2022 1 1 Result [facility] - Ginny Hylton APRN CNP - 03/23/2020 7:30 AM EST Miscellaneous Notes (unrecog nized section and content) This is preappt imaging, we will discuss at upcoming urology appt. documented in this encounter Care Teams (unrecognized sec tion and content) Natural Developer Relationship Specialty Start Date End Date Ramos Lisa DO [address] [place] [address] PCP - General Family Medicine 02/05/21 Jarrell Gray MD Physician Urology 07/17/18 Natural Developer Relationship Specialty Start Date End Date Rosa Khan MD [address] [place] [address] Consulting Physician Cardiology 03/18/20 Natural Developer Relationship Specialty Start Date End Date Ramos Lias DO [address] [place] [address] PCP - General Family Medicine 02/05/21 Natural Developer Relationship Specialty Start Date End Date Kiarra Cam DO [address] [place] [address] PCP - General Internal Medicine 12/05/21 Natural Developer Relationship Specialty Start Date End Date July, Kiarra Rebollar DO [address] [place] [id number] PCP - General Internal Medicine 10/25/21 Rosa Khan MD [address] [place] [phone] Consulting Physician Cardiology 03/18/20 Natural Developer Relationship Specialty Start Date End Date July, DO Kiarra [address] [place] [address] PCP - General Internal Medicine 12/05/21 Team Status: Active Member Role Status Dates Dr. Angela Mera MD Primary Care Provider Active Team Status: Active Member Role Status Dates Dr. William Padilla DO Emergency Provider Active Dr. Angela Mera MD Primary Care Provider Active Dr. Tesha Layne MD Admit Provider, Attending Prov ider Active Team Status: Active Member Role Status Dates Dr. William Padilla DO Emergency Provider Active Dr. Angela Mera MD Primary Care Provider Active Dr. Tesha Layne MD Admit Provider, Other Provider Active Dr. Jack Fuller MD Attending Provider, Other Prov ider Active Team Status: Active Member Role Status Dates Dr. Angela Mera MD Primary Care Provider Active Dr. Cinthia Espinoza MD Attending Provider Activ e Team Status: Active Member Role Status Dates Dr. William Padilla DO Emergency Provider Active Dr. Angela Mera MD Primary Care Provider Active Dr. Tesha Layne MD Admit Provider, Attending Provider, Other Provider Active Dr. Jack Fuller MD Other Provider Active Team Status: Active Member Role Status Dates Dr. William Padilla DO Emergency Provider Active Dr. Angela Mera MD Primary Care Provider Active Dr. Tesha Layne MD Admit Provider, Attending Provider, Other Provider Active Dr. Jack Fuller MD Other Provider Active Dr. Gagandeep Felder MD Other Provider Active Team Status: Active Member Role Status Dates Dr. William Padilla DO Emergency Provider Active Dr. Angela Mera MD Primary Care Provider Active Dr. Tesha Layne MD Admit Provider, Other Provider Active Dr. Jack Fuller MD Attending Provider, Other Prov ider Active Dr. Gagandeep Felder MD Other Provider Active Team Status: Active Member Role Status Dates Dr. William Padilla DO Emergency Provider Active Dr. Angela Mera MD Primary Care Provider Active Dr. Tesha Layne MD Admit Provider, Other Provider Active Dr. Jack Fuller MD Other Provider Active Dr. Gagandeep Felder MD Other Provider Active Dr. Jesse Slade DO Attending Provider, Other Provid er Active Team Status: Inactive Member Role Status Dates Dr. William Padilla DO Emergency Provider Active Dr. Angela Mera MD Primary Care Provider Active Dr. Tesha Layne MD Admit Provider, Other Provider Active Dr. Jack Fuller MD Other Provider Active Dr. Gagandeep Felder MD Other Provider Active Dr. Jesse Slade DO Attending Provider Active Team Status: Active Member Role Status Dates Dr. William Pdailla DO Emergency Provider Active Dr. Angela Mera MD Primary Care Provider Active Dr. Tesha Layne MD Admit Provider, Other Provider Active Dr. Jack Fuller MD Attending Provid er, Referring Provider, Other Provider Active Dr. Gagandeep Felder MD Other Provider Active Team Status: Inactive Member Role Status Dates Dr. Angeal Mera MD Primary Care Provider, Referrin g Provider Active Yojana Ugarte MANAGER AGENCY, MANAGER AGENCY-C Attending Provider Active Team Status: Inactive Member Role Status Dates Dr. Angela Mera MD Primary Care Provider Active Angélica Bronson MANAGER AGENCY, MANAGER AGENCY-C Attending Provider Active Team Status: Inactive Member Role Status Dates Dr. Angela Mera MD Primary Care Provider Active Dr. Heath Mitchell MD Attending Provider Active Team Status: Inactive Member Role Status Dates Dr. Angela Mera MD Primary Care Provider, Referrin g Provider Active Lakesha Bettencourt PA, PA Attending Provider Active Team Status: Active Member Role Status Dates Dr. Angela Mera MD Primary Care Provider Active Heath ALBERT MD Attending Provider Active Team Status: Active Member Role Status Dates Dr. Angela Mera MD Primary Care Provider Active Heath ALBERT MD Attending Provider, Referring Provider Active Team Status: Inactive Member Role Status Dates Dr. Angela Mera MD Primary Care Provider Active Lakesha Bettencourt PA, PA Attending Provider, Referr ing Provider Active Team Status: Active Member Role/Relationship Status Dates Dr. Angela Mera MD Primary Care Provider Active Team Status: Inactive Member Role/Relationship Status Dates Dr. Angela Mera MD Primary Care Provider Active Start: September 18, 2024 End: September 18, 2024 Dr. Angela Mera MD Referring Provider Active Start: September 18, 2024 End: September 18, 2024 Dr. Jack Fuller MD Attending Provider Active Start: September 18, 2024 End: September 18, 2024 Team Status: Inactive Member Role/Relationship Status Dates Dr. Angela Mera MD Primary Care Provider Active Start: September 22, 2024 End: September 22, 2024 Dr. Jack Fuller MD Attending Provider Active Start: September 22, 2024 End: September 22, 2024 Dr. Jack Fuller MD Referring Provider Active Start: September 22, 2024 End: September 22, 2024 (unrecognized sect ion and content) No Status Records FoundNo Status Records FoundNo Status Records FoundNo Status Records FoundNo Status Records Found INFORMATION SOURCE (unrecogn ized section and content) DATE CREATED AUTHOR [facility]/15/2022 [facility] DATE CREATED AUTHOR AUTHOR'S ORGANIZ ATION 08/27/2022 [facility] DATE CREATED AUTHOR AUTHOR'S ORGANIZ ATION 10/12/2023 [facility] DATE CREATED AUTHOR AUTHOR'S ORGANIZ ATION 08/28/2024 [facility] DATE CREATED AUTHOR AUTHOR'S ORGANIZ ATION 09/30/2024 [facility] Goals (unrecognized section and content) Goals may be documented in a n alternate section FOR RECORDS PERTAINING TO PATIENTS WHO ARE [...] BE BASED ON THE PRIMARY CLINICAL RECORDS. [facility]. provides no warranty or guarantee of the accuracy or completeness of information in this document.
--- OUTSIDE RECORDS SUMMARY | 2024-10-19 08:02 | XMS RPT_ITS | CCD ---
Author Organization [facility] CliniSysd Care Team Providers Care Black [employer] Coating Equipment Tender Name Role Phone Jarrell Gray Unavailable Kiarra Ramos Primary Care Provider Jarrell Gray MD Unavailable Unavailable Campolo DO, Ramos Primary Care Provider Rosa Khan MD Unavailable Campolo DO, Ramos Primary Care Provider July DO, Kiarra Primary Care Provider Rosa Khan MD A Unavailable [phone] July DO, Korin Primary Care Provider [phone] CAMPOLO, RAMOS Referring Unavailable CAMPOLO, RAMOS Primary [...] Attending Unavailable MAY, KIARRA Referring Unavailable CAMPOLO, ARMOS Primary Care Unavailable KATHERIN NOBLE Attending Unavailable [...] Tesha English Admit Provider Koram, Dr. Tesha Engilsh Other Provider Dr. Jack Fuller Attending Provider [...] Provider Dr. Jesse Slade Other Provider Audie SOLE LAYER HAND, SOLE LAYER HAND-Keturah Lindsay Attending Provider Dr. Heath Mitchell Attending Provider Dr. 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 Kim Primary Care Provider Dr. Angela Mera MD Referring Provider [phone] Dr. Jack Fuller MD Attending Provider Dr. [...] qDay, # 90 tab(s), 3 Refill(s), Pharmacy: [facility] #[id number], 172, cm, 05/01/24 9:59:00 EST, Height, kg, [...] 60 cap(s), 1 Refill(s), [facility]acy: [facility] #[id number], 173, cm, 04/23/24 13:06:00 EST, Height, kg, [...] 180 tab(s), 3 Refill(s), Pharmacy: [facility] #[id number], Anxiety, 173, cm, 01/25/24 9:05:00 EST, Height, [...] acid 180 mg oral capsule (8 sources) Dinuba-3 Fatty Ac ids (FISH OIL) 1000 MG [...] qAM, # 90 tab(s), 2 Refill(s), Pharmacy: [facility], 172, cm, 08/18/24 8:37:00 EDT, Height, [...] 10/12/23 10:07:00 AM EDT, [facility]: [facility] #[id number], UTI (urinary tract infection) Candidiasis, 173, cm, [...] 08/15/24 5:13:00 PM EDT, [facility]acy: [facility] #[id number], Right lower lobe pneumonia Wheezing, 172, cm, [...] 90 tab(s), 1 Refill(s), [facility]: [facility] #[id number], 172, cm, 05/01/24 9:59:00 EST, Height, kg, [...] 30 tab(s), 5 Refill(s), Pharmacy: [facility] #[id number], NSTEMI (non-ST elevated myocardial infarction) Influenza A, 173, cm, 05/18/23 10:42:00 EST, Height, kg, 05/18/23 10:42:00 EST, Dosing Weight Start Date: 05/18/23 Status: Ordered magnesium oxide 400 mg oral capsule (18 sources) Magnesium Oxide 400 MG CAPS Take by mouth. 0 Active memantine hydrochloride 5 mg oral tablet (14 sources) K-cxsrzu-K-aspartate Receptor Antagonist Start: 04-07-2023 memantine 5 mg oral tablet Dose : 5 mg = 1 tab(s), Oral, BID, # 180 tab(s), 0 Refill(s), [facility]: [facility] #[id number], 172, cm, 08/05/24 16:23:00 EDT, Height, kg, [...] feet 0 Active omega-3 acid ethyl esters (residential) 1000 mg oral capsule (10 sources) Dinuba-3 Fatty Ac ids (FISH OIL) 1000 MG CAPS Take 3,000 mg by mouth. 0 Active polyethylene glycol 3350 15224 mg powder for oral solution (18 sources) [...] 0 Refill(s), 08/12/24 5:13:00 PM EDT, Pharmacy: [facility] #[id number], Right lower lobe pneumonia Wheezing, 172, cm, [...] day(s), # 20 tab(s), 0 Refill(s), Pharmacy: [facility] #[id number], 173, cm, 10/05/23 9:26:00 EDT, Height, 96, [...] day(s), # 28 tab(s), 0 Refill(s), Pharmacy: [facility] #[id number], 173, cm, 05/18/23 10:42:00 EST, Height, 91.4, [...] Drug Class(es) Dates Sig (Normalized) Sig (Original) [id number] 200 actuat albuterol 0.09 mg/actuat metered dose [...] 90 tab(s), 1 Refill(s), [facility]: [facility] #[id number], 173, cm, 01/05/23 14:34:00 EDT, Height, kg, [...] 60 cap(s), 0 Refill(s), [facility]acy: [facility] #[id number], Generalized edema, 173, cm, 06/29/23 15:13:00 EDT, Height, kg, 06/29/23 15:13:00 EDT, Dosing Weight Start Date: 06/29/23 Status: Ordered tiZANidine 2 mg oral tablet (4 sources) Central alpha-2 Adrenergic Agonist Start: 01-25-2024 End: 02-04-2024 tiZANidine 2 mg oral tablet Dose : 2 mg = 1 tab(s), Oral, q8h, PRN as needed for muscle spasm, # 30 tab(s), 0 Refill(s), Pharmacy: [facility] #[id number], Left lumbar radiculitis Hyperuricemia, 173, cm, 01/25/24 [...] Coronary arteriosclerosis; Translations: [Atherosclerotic heart disease of wiyot coronary artery without angina pectoris] Onset: 06-06-2010 [...] (2 sources) Patient encounter status; Translations: [Other oysterman (current) drug therapy] Onset: 02-28-2013 04-15-2021 Episodic [...] on 09-22-2024 Bilirubin.direct [Mass/Vol] 0.27 mg/dL 0.00-0.30 [facility] Bilirubin, totalOrdered By: Jack Fuller on 09-22-2024 Bilirubin [Mass/Vol] 0.57 mg/dL 0.00-1.30 [facility] Calculated very low density lipoprotein (VLDL) cholesterol measurementOrdered By: Jack Fuller on 09-22-2024 Calculated very low density lipoprotein (VLDL) cholesterol measurement 20 mg/dL 5-40 [facility] LDL calc ser/plasOrdered By: Jack Fuller on 09-22-2024 Cholesterol in LDL [Mass/Vol] 62 mg/dL [facility] Comment on above: Oyenwlldhn=003-786 m g/dL & Higher Jmie=593 mg/dL or greater Laboratory - Chemistry and C hemistry - challengeOrdered By: Jack Fuller on 09-22-2024 AST [Catalytic activity/Vol] 25 U/L <38 [facility] Lipid Profileon 09-22-2024 CHOL:HDL 2.66 Normal [facility] Comment on above: Performed By: #### L 500.3400, L500.4100 #### [facility] [address] [place] [place], [place], [id number]) Cholesterol [Mass/Vol] 132 mg/dL Normal <=200 [facility] Comment on above: Result Comment: Chol esterol level, Desirable <200 mg/dL Borderline high cholesterol 200-239 mg/dL High cholesterol >=240 mg/dL Recommendations of the NCEP Adult Treatment Panel for the following risk-cutoff thresholds for the [place] population. Performed By: #### L 500.3400, L500.4100 #### [facility] [address] [place], [place], [id number] Cholesterol in HDL [Mass/Vol] 50 mg/dL Normal [facility] Comment on above: Result Comment: Allie onal Cholesterol Education Program (NCEP) guidelines: <40 mg/dL: Low HDL-cholesterol (major risk factor for CHD) >= 60 mg/dL: High HDL-cholesterol (negative risk factor for CHD) HDL-cholesterol is affected by a number of factors, e.g. smoking, exercise, hormones, sex and age. Performed By: #### L 500.3400, L500.4100 #### [facility] [address] [place], [address] Cholesterol in LDL [Mass/Vol] 62 mg/dL Normal [facility] Comment on above: Result Comment: Bord dihpfz=459-222 mg/dL Higher Yyee=780 mg/dL or greater Performed By: #### L 500.3400, L500.4100 #### [facility] [address] [place], [address] Cholesterol in VLDL [Mass/Vol] 20 mg/dL Normal 5-40 [facility] Comment on above: Performed By: #### L 500.3400, L500.4100 #### [facility] [address] [place], [address] Triglyceride [Mass/Vol] 101 mg/dL Normal [facility] Comment on above: Result Comment: The drugs N-Acetylcysteine and Metamizole may falsely depress this assay. Normal range: <150 mg/dL Borderline High: 150-199 mg/dL High: 200-499 mg/dL Very High: >500 mg/dL Performed By: #### L 500.3400, L500.4100 #### [facility] [address] [place], [address] Liver Profileon 09-22-2024 Albumin [Mass/Vol] 3.8 g/dL Normal 3.4-4.8 [facility] Comment on above: Performed By: #### L 500.3400, L500.4100 #### [facility] [address] [place], [address] ALK PHOS 86 U/L Normal 40-129 [facility] Comment on above: Performed By: #### L 500.3400, L500.4100 #### [facility] [address] [place], [address] ALT [Catalytic activity/Vol] 19 U/L Normal <=46 [facility] Comment on above: Performed By: #### L 500.3400, L500.4100 #### [facility] [address] [place], [address] AST [Catalytic activity/Vol] 25 U/L Normal <=37 [facility] Comment on above: Performed By: #### L 500.3400, L500.4100 #### [facility] [address] [place], [address] Bilirubin [Mass/Vol] 0.57 mg/dL Normal 0.00-1.30 [facility] Comment on above: Performed By: #### L 500.3400, L500.4100 #### [facility] [address] [place], [address] Bilirubin.direct [Mass/Vol] 0.27 mg/dL Normal 0.00-0.30 [facility] Comment on above: Performed By: #### L 500.3400, L500.4100 #### [facility] [address] [place], [address] Globulin (S) [Mass/Vol] 3.0 g/dL Normal 2.2-4.2 [facility] Comment on above: Performed By: #### L 500.3400, L500.4100 #### [facility] [address] [place], [address] T PROT 6.8 g/dL Normal 5.9-8.4 [facility] Comment on above: Performed By: #### L 500.3400, L500.4100 #### [facility] [address] [place], [address] Screening total cholesterol/ high density lipoprotein (HDL) cholesterol ratioOrdered By: Jack Fuller on 09-22-2024 Cholesterol.total/Choles terol in HDL [Mass ratio] 2.66 {ratio} [facility] Serum globulin measurementOr dered By: Jack Fuller on 09-22-2024 Globulin (S) [Mass/Vol] 3.0 g/dL 2.2-4.2 [facility] Serum or plasma alanine au otransferase (ALT) measurementOrdered By: Jack Fuller on 09-22-2024 ALT [Catalytic activity/Vol] 19 U/L <47 [facility] Serum or plasma albumin ender urement (mass/volume)Ordered By: Jack Fuller on 09-22-2024 Albumin [Mass/Vol] 3.8 g/dL 3.4-4.8 [facility] Serum or plasma alkaline ana sphatase measurementOrdered By: Jack Fuller on 09-22-2024 ALP [Catalytic activity/Vol] 86 U/L 40-129 [facility] Serum or plasma cholesterol in HDL measurement (mass/volume)Ordered By: Jack Fuller on 09-22-2024 Cholesterol in HDL [Mass/Vol] 50 mg/dL >40 [facility] Comment on above: National Cholesterol Education Program (NCEP) guidelines:<40 mg/dL: Low HDL-cholesterol (major risk factor for CHD)>= 60 mg/dL: High HDL-cholesterol (negative risk factor for CHD)HDL-cholesterol is affected by a number of factors, e.g. smoking, exercise, hormones, sex and age. Serum or plasma cholesterol measurement (mass/volume)Ordered By: Jack Fuller on 09-22-2024 Cholesterol [Mass/Vol] 132 mg/dL <201 [facility] Comment on above: Cholesterol level, D esirable <200 mg/dLBorderline high cholesterol 200-239 mg/dLHigh cholesterol >=240 mg/dLRecommendations of the NCEP Adult Treatment Panel for the following risk-cutoff thresholds for the [place] population. Total proteinOrdered By: Azael Fuller on 09-22-2024 Protein [Mass/Vol] 6.8 g/dL 5.9-8.4 [facility] Triglycerides measurementOrd ered By: Jack Fuller on 09-22-2024 Triglyceride [Mass/Vol] 101 mg/dL <199 [facility] Comment on above: The drugs N-Acetylcy steine and Metamizole may falsely depress this assay. Normal range: <150 mg/dLBorderline High: 150-199 mg/dLHigh: 200-499 mg/dLVery High: >500 mg/dL Cardiology Visit Reporton Cardiology Visit Report [facility] [address] [place] [address] OFFICE VISIT Date of Service: 09/18/24 MR#: [id number] Acct: [id number] Name: FREDY BOX Rep #: [id number] : 1945 Provider: Dr. Jack ayala MD Age/Sex: 79/M Location: [facility] Status: Signed HPI HPI History of Present Illness Details: Patient is a pleasant 79-year-old white male that comes in for monitoring of his cardiovascular status. The patient carries a history of coronary disease status post stenting the last of which was in 2010 in [facility]. 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 Normal [facility] .GFRon 08-26-2024 Estimated Glomerular Filtration Rate 51 ml/min/1.73sqm Normal [facility] Comment on above: Result Comment: Stages [...] CBC, ADIFF, ANEU, URIC, GFR, LIPID #### [facility] [address] [place], [place] [address] CMPon 08-26-2024 Albumin Level 2.9 G/dL Low 3.4-4.8 [facility] Comment on above: Performed By: #### L IPID, GFR, CMP #### [facility] [address] [place], [place] [address] Albumin/Globulin [Mass ratio] 0.7 {ratio} Low 1.1-2.5 [facility] Comment on above: Performed By: #### L IPID, GFR, CMP #### [address] [address] ALP [Catalytic activity/Vol] 84 U/L Normal 40-135 [facility] Comment on above: Performed By: #### L IPID, GFR, CMP #### [address] [address] ALT [Catalytic activity/Vol] 24 U/L Normal 16-63 [facility] Comment on above: Performed By: #### L IPID, GFR, CMP #### [address] [address] AST [Catalytic activity/Vol] 22 U/L Normal 10-40 [facility] Comment on above: Performed By: #### L IPID, GFR, CMP #### [address] [address] Bili Total 0.5 mg/dL Normal 0.2-1.0 [facility] Comment on above: Result Comment: Use of this assay is not recommended for patients undergoing treatment with eltrombopag due to the potential for falsely elevated results. Performed By: #### L IPID, GFR, CMP #### [address] [address] BUN/Creatinine Ratio 24 ratio Normal 7-27 [facility] Comment on above: Performed By: #### L IPID, GFR, CMP #### [address] [address] Calcium [Mass/Vol] 8.8 mg/dL Normal 8.4-10.2 [facility] Comment on above: Performed By: #### L IPID, GFR, CMP #### [address] [address] Chloride [Moles/Vol] 109 mmol/L High 98-107 [facility] Comment on above: Performed By: #### L IPID, GFR, CMP #### [address] [address] CO2 [Moles/Vol] 27 mmol/L Normal 23-31 [facility] Comment on above: Performed By: #### L IPID, GFR, CMP #### [address] [address] Creatinine [Mass/Vol] 1.40 mg/dL High 0.67-1.17 [facility] Comment on above: Performed By: #### L IPID, GFR, CMP #### [address] [address] Electrolyte Balance 8.0 mEq/L Normal 4.0-15.0 [facility] Comment on above: Performed By: #### L IPID, GFR, CMP #### [address] [address] Globulin 3.9 G/dL Normal 2.7-4.4 [facility] Comment on above: Performed By: #### L IPID, GFR, CMP #### [address] [address] Glucose [Mass/Vol] 88 mg/dL Normal 83-110 [facility] Comment on above: Performed By: #### L IPID, GFR, CMP #### [address] [address] Potassium [Moles/Vol] 4.2 mmol/L Normal 3.5-5.1 [facility] Comment on above: Performed By: #### L IPID, GFR, CMP #### [address] [address] Sodium [Moles/Vol] 144 mmol/L Normal 136-145 [facility] Comment on above: Performed By: #### L IPID, GFR, CMP #### [address] [address] Total Protein 6.8 G/dL Normal 6.4-8.2 [facility] Comment on above: Performed By: #### L IPID, GFR, CMP #### [address] [address] Urea nitrogen [Mass/Vol] 34 mg/dL High 7-18 [facility] Comment on above: Performed By: #### L IPID, GFR, CMP #### [facility] [address] [place], [place] [address] LABORATORYOrdered By: SYSTEM SYSTEM on 08-26-2024 Albumin [...] 08-26-2024 Cholesterol [Mass/Vol] 133 mg/dL Normal 0-200 [facility] Comment on above: Result Comment: Chol esterol Reference Interval: Less than 200 Desirable 200-239 Borderline high risk 240 and above High risk Performed By: #### C MP, CBC, ADIFF, ANEU, URIC, GFR, LIPID #### [facility] [address] [place], [place] [address] Cholesterol in HDL [Mass/Vol] 55 mg/dL Normal 40-60 [facility] Comment on above: Performed By: #### C MP, CBC, ADIFF, ANEU, URIC, GFR, LIPID #### [address] [address] Cholesterol in LDL [Mass/Vol] 63 mg/dL Normal 0-130 [facility] Comment on above: Performed By: #### C MP, CBC, ADIFF, ANEU, URIC, GFR, LIPID #### [address] [address] Triglyceride [Mass/Vol] 74 mg/dL Normal 0-150 [facility] Comment on above: Result Comment: Trig lyceride Reference Interval: Less than 150 Normal 150-199 Borderline high risk 200-499 High risk 500 or higher Very high risk Performed By: #### C MP, CBC, ADIFF, ANEU, URIC, GFR, LIPID #### [address] [address] .Auto Diffon 08-18-2024 Basophil, Absolute 0.0 10 3/mcL Normal 0.0-0.3 [facility] Comment on above: Performed By: #### C MP, CBC, ADIFF, ANEU, URIC, GFR, LIPID #### [address] [address] Basophils/100 WBC (Bld) 0.2 % Normal 0.0-2.5 [facility] Comment on above: Performed By: #### C MP, CBC, ADIFF, ANEU, URIC, GFR, LIPID #### [address] [address] Eosinophil, Absolute 0.1 10 3/mcL Normal 0.0-0.7 [facility] Comment on above: Performed By: #### C MP, CBC, ADIFF, ANEU, URIC, GFR, LIPID #### [address] [address] Eosinophils/100 WBC (Bld) 0.9 % Normal 0.0-6.0 [facility] Comment on above: Performed By: #### C MP, CBC, ADIFF, ANEU, URIC, GFR, LIPID #### [address] [address] Lymphocyte, Absolute 0.9 10 3/mcL Normal 0.9-4.3 [facility] Comment on above: Performed By: #### C MP, CBC, ADIFF, ANEU, URIC, GFR, LIPID #### [address] [address] Lymphocytes/100 WBC (Bld) 8.1 % Low 20.0-40.0 [facility] Comment on above: Performed By: #### C MP, CBC, ADIFF, ANEU, URIC, GFR, LIPID #### [address] [address] Monocyte, Absolute 1.0 10 3/mcL Normal 0.1-1.4 [facility] Comment on above: Performed By: #### C MP, CBC, ADIFF, ANEU, URIC, GFR, LIPID #### [address] [address] Monocytes/100 WBC (Bld) 8.9 % Normal 2.0-13.0 [facility] Comment on above: Performed By: #### C MP, CBC, ADIFF, ANEU, URIC, GFR, LIPID #### [address] [address] Neutrophils/100 WBC (Bld) 81.9 % High 50.0-75.0 [facility] Comment on above: Performed By: #### C MP, CBC, ADIFF, ANEU, URIC, GFR, LIPID #### [address] [address] .GFRon 08-18-2024 Estimated Glomerular Filtration Rate 54 ml/min/1.73sqm Normal [facility] Comment on above: Result Comment: Stages [...] CBC, ADIFF, ANEU, URIC, GFR, LIPID #### [address] [address] .NEUABSon 08-18-2024 Neutrophil, Absolute 9.6 10 3/mcL High 2.3-8.1 [facility] Comment on above: Performed By: #### C MP, CBC, ADIFF, ANEU, URIC, GFR, LIPID #### [place] [address] CBCon 08-18-2024 Erythrocyte distribution width (RBC) [Ratio] 17.4 % High 11.5-15.5 [facility] Comment on above: Performed By: #### C MP, CBC, ADIFF, ANEU, URIC, GFR, LIPID #### [place] [address] Hematocrit (Bld) [Volume fraction] 43.6 % Normal 40.0-52.0 [facility] Comment on above: Performed By: #### C MP, CBC, ADIFF, ANEU, URIC, GFR, LIPID #### [place] [address] Hgb 14.6 G/dL Normal 13.0-17.5 [facility] Comment on above: Performed By: #### C MP, CBC, ADIFF, ANEU, URIC, GFR, LIPID #### [place] [address] MCH (RBC) [Entitic mass] 34.3 pg High 27.0-33.0 [facility] Comment on above: Performed By: #### C MP, CBC, ADIFF, ANEU, URIC, GFR, LIPID #### [place] [address] MCHC 33.4 G/dL Normal 32.0-36.0 [facility] Comment on above: Performed By: #### C MP, CBC, ADIFF, ANEU, URIC, GFR, LIPID #### [address] [address] MCV (RBC) [Entitic vol] 102.8 fL High 81.0-100.0 [facility] Comment on above: Performed By: #### C MP, CBC, ADIFF, ANEU, URIC, GFR, LIPID #### [address] [address] Platelet 132 10 3/mcL Low 150-450 [facility] Comment on above: Performed By: #### C MP, CBC, ADIFF, ANEU, URIC, GFR, LIPID #### [address] [address] Platelet mean volume (Bld) [Entitic vol] 7.6 fL Normal 6.4-10.5 [facility] Comment on above: Performed By: #### C MP, CBC, ADIFF, ANEU, URIC, GFR, LIPID #### [address] [address] RBC 4.24 10 6/mcL Low 4.50-6.00 [facility] Comment on above: Performed By: #### C MP, CBC, ADIFF, ANEU, URIC, GFR, LIPID #### [address] [address] WBC 11.7 10 3/mcL High 4.5-10.8 [facility] Comment on above: Performed By: #### C MP, CBC, ADIFF, ANEU, URIC, GFR, LIPID #### [address] [address] CMPon 08-18-2024 Albumin Level 2.9 G/dL Low 3.4-4.8 [facility] Comment on above: Performed By: #### C MP, CBC, ADIFF, ANEU, URIC, GFR, LIPID #### [address] [address] Albumin/Globulin [Mass ratio] 0.8 {ratio} Low 1.1-2.5 [facility] Comment on above: Performed By: #### C MP, CBC, ADIFF, ANEU, URIC, GFR, LIPID #### [address] [address] ALP [Catalytic activity/Vol] 81 U/L Normal 40-135 [facility] Comment on above: Performed By: #### C MP, CBC, ADIFF, ANEU, URIC, GFR, LIPID #### [address] [address] ALT [Catalytic activity/Vol] 33 U/L Normal 16-63 [facility] Comment on above: Performed By: #### C MP, CBC, ADIFF, ANEU, URIC, GFR, LIPID #### [address] [address] AST [Catalytic activity/Vol] 33 U/L Normal 10-40 [facility] Comment on above: Performed By: #### C MP, CBC, ADIFF, ANEU, URIC, GFR, LIPID #### [address] [address] Bili Total 0.7 mg/dL Normal 0.2-1.0 [facility] Comment on above: Result Comment: Use of this assay is not recommended for patients undergoing treatment with eltrombopag due to the potential for falsely elevated results. Performed By: #### C MP, CBC, ADIFF, ANEU, URIC, GFR, LIPID #### [address] [address] BUN/Creatinine Ratio 23 ratio Normal 7-27 [facility] Comment on above: Performed By: #### C MP, CBC, ADIFF, ANEU, URIC, GFR, LIPID #### [address] [address] Calcium [Mass/Vol] 8.7 mg/dL Normal 8.4-10.2 [facility] Comment on above: Performed By: #### C MP, CBC, ADIFF, ANEU, URIC, GFR, LIPID #### [address] [address] Chloride [Moles/Vol] 108 mmol/L High 98-107 [facility] Comment on above: Performed By: #### C MP, CBC, ADIFF, ANEU, URIC, GFR, LIPID #### [address] [address] CO2 [Moles/Vol] 25 mmol/L Normal 23-31 [facility] Comment on above: Performed By: #### C MP, CBC, ADIFF, ANEU, URIC, GFR, LIPID #### [address] [address] Creatinine [Mass/Vol] 1.33 mg/dL High 0.67-1.17 [facility] Comment on above: Performed By: #### C MP, CBC, ADIFF, ANEU, URIC, GFR, LIPID #### [place] [address] Electrolyte Balance 8.0 mEq/L Normal 4.0-15.0 [facility] Comment on above: Performed By: #### C MP, CBC, ADIFF, ANEU, URIC, GFR, LIPID #### [place] [address] Globulin 3.8 G/dL Normal 2.7-4.4 [facility] Comment on above: Performed By: #### C MP, CBC, ADIFF, ANEU, URIC, GFR, LIPID #### [place] [address] Glucose [Mass/Vol] 80 mg/dL Low 83-110 [facility] Comment on above: Performed By: #### C MP, CBC, ADIFF, ANEU, URIC, GFR, LIPID #### [address] [address] Potassium [Moles/Vol] 4.0 mmol/L Normal 3.5-5.1 [facility] Comment on above: Performed By: #### C MP, CBC, ADIFF, ANEU, URIC, GFR, LIPID #### [place] [address] Sodium [Moles/Vol] 141 mmol/L Normal 136-145 [facility] Comment on above: Performed By: #### C MP, CBC, ADIFF, ANEU, URIC, GFR, LIPID #### [facility] [address] [place], [place] [address] Total Protein 6.7 G/dL Normal 6.4-8.2 [facility] Comment on above: Performed By: #### C MP, CBC, ADIFF, ANEU, URIC, GFR, LIPID #### [place] [address] [place], [place] [address] Urea nitrogen [Mass/Vol] 31 mg/dL High 7-18 [facility] Comment on above: Performed By: #### C MP, CBC, ADIFF, ANEU, URIC, GFR, LIPID #### [address] [place], [place] [address] LABORATORYOrdered By: SYSTEM SYSTEM on 08-18-2024 Albumin [...] Culture Urine No growth at 48 hours. [facility] PBNPon 08-18-2024 Natriuretic peptide B (Bld) [Mass/Vol] 605 pg/mL High 0-450 [facility] Comment on above: Result Comment: NT-p roBNP results of less than 300 pg/mL effectively rules out acute congestive heart failure with 99% negative predictive value. Performed By: #### C MP, CBC, ADIFF, ANEU, URIC, GFR, LIPID #### [address] [place], [place] [address] XR CHEST 2 VIEWSon XR CHEST 2 [...] 08/08/2024 8:18:18 AM Ordering Provider: ANGELA Rodrigez [facility] .Auto Diffon 04-14-2024 Basophil, Absolute 0.0 10 3/mcL Normal 0.0-0.2 [facility] Comment on above: Performed By: #### C MP, CBC, ADIFF, ANEU, URIC, GFR, LIPID #### [address] [address] Basophils/100 WBC (Bld) 0.4 % Normal 0.0-2.5 [facility] Comment on above: Performed By: #### C MP, CBC, ADIFF, ANEU, URIC, GFR, LIPID #### [address] [address] Eosinophil, Absolute 0.2 10 3/mcL Normal 0.0-0.7 [facility] Comment on above: Performed By: #### C MP, CBC, ADIFF, ANEU, URIC, GFR, LIPID #### [address] [address] Eosinophils/100 WBC (Bld) 2.1 % Normal 0.0-7.0 [facility] Comment on above: Performed By: #### C MP, CBC, ADIFF, ANEU, URIC, GFR, LIPID #### [address] [address] Lymphocyte, Absolute 0.9 10 3/mcL Normal 0.9-4.3 [facility] Comment on above: Performed By: #### C MP, CBC, ADIFF, ANEU, URIC, GFR, LIPID #### [address] [address] Lymphocytes/100 WBC (Bld) 12.2 % Low 20.0-40.0 [facility] Comment on above: Performed By: #### C MP, CBC, ADIFF, ANEU, URIC, GFR, LIPID #### [address] [address] Monocyte, Absolute 0.6 10 3/mcL Normal 0.1-1.4 [facility] Comment on above: Performed By: #### C MP, CBC, ADIFF, ANEU, URIC, GFR, LIPID #### [address] [address] Monocytes/100 WBC (Bld) 8.4 % Normal 2.0-13.0 [facility] Comment on above: Performed By: #### C MP, CBC, ADIFF, ANEU, URIC, GFR, LIPID #### [address] [address] Neutrophils/100 WBC (Bld) 76.9 % High 50.0-75.0 [facility] Comment on above: Performed By: #### C MP, CBC, ADIFF, ANEU, URIC, GFR, LIPID #### [address] [address] .GFRon 04-14-2024 GFR 63 ml/min/1.73sqm Normal [facility] Comment on above: Result Comment: GFR [...] CBC, ADIFF, ANEU, URIC, GFR, LIPID #### [address] [address] GFR Non- 52 ml/min/1.73sqm Normal [facility] Comment on above: Result Comment: GFR [...] CBC, ADIFF, ANEU, URIC, GFR, LIPID #### [address] [address] .NEUABSon 04-14-2024 Neutrophil, Absolute 5.5 10 3/mcL Normal 2.3-8.1 [facility] Comment on above: Performed By: #### C MP, CBC, ADIFF, ANEU, URIC, GFR, LIPID #### [address] [address] CBCon 04-14-2024 Erythrocyte distribution width (RBC) [Ratio] 15.8 % High 11.5-15.5 [facility] Comment on above: Performed By: #### C MP, CBC, ADIFF, ANEU, URIC, GFR, LIPID #### [address] [address] Hematocrit (Bld) [Volume fraction] 42.9 % Normal 40.0-52.0 [facility] Comment on above: Performed By: #### C MP, CBC, ADIFF, ANEU, URIC, GFR, LIPID #### [address] [address] Hgb 14.5 G/dL Normal 13.0-17.5 [facility] Comment on above: Performed By: #### C MP, CBC, ADIFF, ANEU, URIC, GFR, LIPID #### [address] [address] MCH (RBC) [Entitic mass] 34.2 pg High 27.0-33.0 [facility] Comment on above: Performed By: #### C MP, CBC, ADIFF, ANEU, URIC, GFR, LIPID #### [address] [address] MCHC 33.8 G/dL Normal 32.0-36.0 [facility] Comment on above: Performed By: #### C MP, CBC, ADIFF, ANEU, URIC, GFR, LIPID #### [address] [address] MCV (RBC) [Entitic vol] 100.9 fL High 81.0-100.0 [facility] Comment on above: Performed By: #### C MP, CBC, ADIFF, ANEU, URIC, GFR, LIPID #### [address] [address] Platelet 205 10 3/mcL Normal 150-450 [facility] Comment on above: Performed By: #### C MP, CBC, ADIFF, ANEU, URIC, GFR, LIPID #### [address] [address] Platelet mean volume (Bld) [Entitic vol] 6.8 fL Normal 6.4-10.5 [facility] Comment on above: Performed By: #### C MP, CBC, ADIFF, ANEU, URIC, GFR, LIPID #### [place] [id number] RBC 4.25 10 6/mcL Low 4.50-6.00 [facility] Comment on above: Performed By: #### C MP, CBC, ADIFF, ANEU, URIC, GFR, LIPID #### [address] [address] WBC 7.2 10 3/mcL Normal 4.5-10.8 [facility] Comment on above: Performed By: #### C MP, CBC, ADIFF, ANEU, URIC, GFR, LIPID #### [address] [address] CMPon 04-14-2024 Albumin Level 3.2 G/dL Low 3.4-4.8 [facility] Comment on above: Performed By: #### C MP, CBC, ADIFF, ANEU, URIC, GFR, LIPID #### [address] [address] Albumin/Globulin [Mass ratio] 0.7 {ratio} Low 1.1-2.5 [facility] Comment on above: Performed By: #### C MP, CBC, ADIFF, ANEU, URIC, GFR, LIPID #### [address] [address] ALP [Catalytic activity/Vol] 98 U/L Normal 40-135 [facility] Comment on above: Performed By: #### C MP, CBC, ADIFF, ANEU, URIC, GFR, LIPID #### [address] [address] ALT [Catalytic activity/Vol] 17 U/L Normal 16-63 [facility] Comment on above: Performed By: #### C MP, CBC, ADIFF, ANEU, URIC, GFR, LIPID #### [address] [address] AST [Catalytic activity/Vol] 19 U/L Normal 10-40 [facility] Comment on above: Performed By: #### C MP, CBC, ADIFF, ANEU, URIC, GFR, LIPID #### [address] [address] Bili Total 0.6 mg/dL Normal 0.2-1.0 [facility] Comment on above: Result Comment: Use of this assay is not recommended for patients undergoing treatment with eltrombopag due to the potential for falsely elevated results. Performed By: #### C MP, CBC, ADIFF, ANEU, URIC, GFR, LIPID #### [address] [address] BUN/Creatinine Ratio 23 ratio Normal 7-27 [facility] Comment on above: Performed By: #### C MP, CBC, ADIFF, ANEU, URIC, GFR, LIPID #### [address] Calcium [Mass/Vol] 9.3 mg/dL Normal 8.4-10.2 [facility] Comment on above: Performed By: #### C MP, CBC, ADIFF, ANEU, URIC, GFR, LIPID #### [address] [address] Chloride [Moles/Vol] 106 mmol/L Normal 98-107 [facility] Comment on above: Performed By: #### C MP, CBC, ADIFF, ANEU, URIC, GFR, LIPID #### [address] [address] CO2 [Moles/Vol] 27 mmol/L Normal 23-31 [facility] Comment on above: Performed By: #### C MP, CBC, ADIFF, ANEU, URIC, GFR, LIPID #### [address] [address] Creatinine [Mass/Vol] 1.32 mg/dL High 0.70-1.30 [facility] Comment on above: Result Comment: Test ing performed on Siemens Dimension EXL analyzer using a modified kinetic Pati technique. Performed By: #### C MP, CBC, ADIFF, ANEU, URIC, GFR, LIPID #### [address] [address] Electrolyte Balance 7.0 mEq/L Normal 4.0-15.0 [facility] Comment on above: Performed By: #### C MP, CBC, ADIFF, ANEU, URIC, GFR, LIPID #### [address] [address] Globulin 4.3 G/dL Normal [facility] Comment on above: Performed By: #### C MP, CBC, ADIFF, ANEU, URIC, GFR, LIPID #### [address] [address] Glucose [Mass/Vol] 85 mg/dL Normal 83-110 [facility] Comment on above: Performed By: #### C MP, CBC, ADIFF, ANEU, URIC, GFR, LIPID #### [address] [address] Potassium [Moles/Vol] 3.8 mmol/L Normal 3.5-5.1 [facility] Comment on above: Performed By: #### C MP, CBC, ADIFF, ANEU, URIC, GFR, LIPID #### [address] [address] Sodium [Moles/Vol] 140 mmol/L Normal 136-145 [facility] Comment on above: Performed By: #### C MP, CBC, ADIFF, ANEU, URIC, GFR, LIPID #### [address] [address] Total Protein 7.5 G/dL Normal 6.4-8.2 [facility] Comment on above: Performed By: #### C MP, CBC, ADIFF, ANEU, URIC, GFR, LIPID #### [address] [address] Urea nitrogen [Mass/Vol] 31 mg/dL High 7-18 [facility] Comment on above: Performed By: #### C MP, CBC, ADIFF, ANEU, URIC, GFR, LIPID #### [address] [address] LABORATORYOrdered By: SYSTEM SYSTEM on 04-14-2024 Albumin [...] 04-14-2024 Cholesterol [Mass/Vol] 127 mg/dL Normal 0-200 [facility] Comment on above: Result Comment: Chol esterol Reference Interval: Less than 200 Desirable 200-239 Borderline high risk 240 and above High risk Performed By: #### C MP, CBC, ADIFF, ANEU, URIC, GFR, LIPID #### [address] [address] Cholesterol in HDL [Mass/Vol] 59 mg/dL Normal 40-60 [facility] Comment on above: Performed By: #### C MP, CBC, ADIFF, ANEU, URIC, GFR, LIPID #### [address] [address] Cholesterol in LDL [Mass/Vol] 54 mg/dL Normal 0-130 [facility] Comment on above: Performed By: #### C MP, CBC, ADIFF, ANEU, URIC, GFR, LIPID #### [address] [address] Triglyceride [Mass/Vol] 69 mg/dL Normal 0-150 [facility] Comment on above: Result Comment: Trig lyceride Reference Interval: Less than 150 Normal 150-199 Borderline high risk 200-499 High risk 500 or higher Very high risk Performed By: #### C MP, CBC, ADIFF, ANEU, URIC, GFR, LIPID #### [address] [address] URICon 04-14-2024 Uric Acid Lvl 3.7 mg/dL Normal 3.5-7.2 [facility] Comment on above: Performed By: #### C MP, CBC, ADIFF, ANEU, URIC, GFR, LIPID #### [address] [place], [place] [address] Cardiology Visit Reporton Cardiology Visit Report [facility] [address] [place] [address] OFFICE VISIT Date of Service: 12/12/23 MR#: [id number] Acct: [id number] Name: FREDY BOX Rep #: [id number] : 1945 Provider: OLIVIA Chairez Age/Sex: 78/M Location: [facility] Status: Signed HPI HPI History of Present Illness Details: This is a 78-year-old male who presents the office today for an urgent follow-up. He was evaluated [facility] in March 2023 for non-ST elevated myocardial [...] bleeding End (more content not included)... Normal [facility] .Auto Diffon 11-29-2023 Basophil, Absolute 0.0 10 3/mcL Normal 0.0-0.2 [facility] Comment on above: Performed By: #### C MP, CBC, ADIFF, ANEU, URIC, GFR, LIPID #### [address] [address] Basophils/100 WBC (Bld) 0.4 % Normal 0.0-2.5 [facility] Comment on above: Performed By: #### C MP, CBC, ADIFF, ANEU, URIC, GFR, LIPID #### [address] [address] Eosinophil, Absolute 0.2 10 3/mcL Normal 0.0-0.4 [facility] Comment on above: Performed By: #### C MP, CBC, ADIFF, ANEU, URIC, GFR, LIPID #### [address] [address] Eosinophils/100 WBC (Bld) 2.7 % Normal 0.0-7.0 [facility] Comment on above: Performed By: #### C MP, CBC, ADIFF, ANEU, URIC, GFR, LIPID #### [address] [address] Lymphocyte, Absolute 0.9 10 3/mcL Normal 0.8-3.9 [facility] Comment on above: Performed By: #### C MP, CBC, ADIFF, ANEU, URIC, GFR, LIPID #### [address] [address] Lymphocytes/100 WBC (Bld) 13.7 % Normal 10.0-50.0 [facility] Comment on above: Performed By: #### C MP, CBC, ADIFF, ANEU, URIC, GFR, LIPID #### [address] [address] Monocyte, Absolute 0.8 10 3/mcL Normal 0.2-1.0 [facility] Comment on above: Performed By: #### C MP, CBC, ADIFF, ANEU, URIC, GFR, LIPID #### [address] [address] Monocytes/100 WBC (Bld) 12.3 % Normal 1.7-13.0 [facility] Comment on above: Performed By: #### C MP, CBC, ADIFF, ANEU, URIC, GFR, LIPID #### [address] [address] Neutrophils/100 WBC (Bld) 70.9 % Normal 37.0-80.0 [facility] Comment on above: Performed By: #### C MP, CBC, ADIFF, ANEU, URIC, GFR, LIPID #### [address] [address] .GFRon 11-29-2023 GFR 58 ml/min/1.73sqm Normal [facility] Comment on above: Result Comment: GFR [...] CBC, ADIFF, ANEU, URIC, GFR, LIPID #### [address] [address] GFR Non- 47 ml/min/1.73sqm Normal [facility] Comment on above: Result Comment: GFR [...] CBC, ADIFF, ANEU, URIC, GFR, LIPID #### [address] [address] .NEUABSon 11-29-2023 Neutrophil, Absolute 4.8 10 3/mcL Normal 2.9-6.2 [facility] Comment on above: Performed By: #### C MP, CBC, ADIFF, ANEU, URIC, GFR, LIPID #### [address] [address] CBCon 11-29-2023 Erythrocyte distribution width (RBC) [Ratio] 15.7 % High 11.5-14.5 [facility] Comment on above: Performed By: #### C MP, CBC, ADIFF, ANEU, URIC, GFR, LIPID #### [address] [address] Hematocrit (Bld) [Volume fraction] 40.6 % Low 42.0-52.0 [facility] Comment on above: Performed By: #### C MP, CBC, ADIFF, ANEU, URIC, GFR, LIPID #### [address] [address] Hgb 13.4 G/dL Low 14.0-18.0 [facility] Comment on above: Performed By: #### C MP, CBC, ADIFF, ANEU, URIC, GFR, LIPID #### [address] [address] MCH (RBC) [Entitic mass] 33.4 pg High 27.0-31.2 [facility] Comment on above: Performed By: #### C MP, CBC, ADIFF, ANEU, URIC, GFR, LIPID #### [place] [address] MCHC 33.1 G/dL Normal 31.8-35.4 [facility] Comment on above: Performed By: #### C MP, CBC, ADIFF, ANEU, URIC, GFR, LIPID #### [address] [address] MCV (RBC) [Entitic vol] 101.0 fL High 80.0-94.0 [facility] Comment on above: Performed By: #### C MP, CBC, ADIFF, ANEU, URIC, GFR, LIPID #### [address] [address] Platelet 161 10 3/mcL Normal 130-400 [facility] Comment on above: Performed By: #### C MP, CBC, ADIFF, ANEU, URIC, GFR, LIPID #### [address] [address] Platelet mean volume (Bld) [Entitic vol] 6.9 fL Low 7.4-10.4 [facility] Comment on above: Performed By: #### C MP, CBC, ADIFF, ANEU, URIC, GFR, LIPID #### [place] [id number] RBC 4.02 10 6/mcL Low 4.04-6.13 [facility] Comment on above: Performed By: #### C MP, CBC, ADIFF, ANEU, URIC, GFR, LIPID #### [address] [address] WBC 6.7 10 3/mcL Normal 4.6-10.8 [facility] Comment on above: Performed By: #### C MP, CBC, ADIFF, ANEU, URIC, GFR, LIPID #### [address] [address] CMPon 11-29-2023 Albumin Level 3.2 G/dL Low 3.4-4.8 [facility] Comment on above: Performed By: #### C MP, CBC, ADIFF, ANEU, URIC, GFR, LIPID #### [place] [id number] Albumin/Globulin [Mass ratio] 0.9 {ratio} Low 1.1-2.5 [facility] Comment on above: Performed By: #### C MP, CBC, ADIFF, ANEU, URIC, GFR, LIPID #### [place] [address] ALP [Catalytic activity/Vol] 105 U/L Normal 40-135 [facility] Comment on above: Performed By: #### C MP, CBC, ADIFF, ANEU, URIC, GFR, LIPID #### [place] [id number] ALT [Catalytic activity/Vol] 16 U/L Normal 16-63 [facility] Comment on above: Performed By: #### C MP, CBC, ADIFF, ANEU, URIC, GFR, LIPID #### [place] [id number] AST [Catalytic activity/Vol] 14 U/L Normal 10-40 [facility] Comment on above: Performed By: #### C MP, CBC, ADIFF, ANEU, URIC, GFR, LIPID #### [place] [id number] Bili Total 0.6 mg/dL Normal 0.2-1.0 [facility] Comment on above: Result Comment: Use of this assay is not recommended for patients undergoing treatment with eltrombopag due to the potential for falsely elevated results. Performed By: #### C MP, CBC, ADIFF, ANEU, URIC, GFR, LIPID #### [address] [address] BUN/Creatinine Ratio 19 ratio Normal 7-27 [facility] Comment on above: Performed By: #### C MP, CBC, ADIFF, ANEU, URIC, GFR, LIPID #### [address] [address] Calcium [Mass/Vol] 9.0 mg/dL Normal 8.4-10.2 [facility] Comment on above: Performed By: #### C MP, CBC, ADIFF, ANEU, URIC, GFR, LIPID #### [place] [address] Chloride [Moles/Vol] 106 mmol/L Normal 98-107 [facility] Comment on above: Performed By: #### C MP, CBC, ADIFF, ANEU, URIC, GFR, LIPID #### [place] [address] CO2 [Moles/Vol] 30 mmol/L Normal 23-31 [facility] Comment on above: Performed By: #### C MP, CBC, ADIFF, ANEU, URIC, GFR, LIPID #### [address] [address] Creatinine [Mass/Vol] 1.44 mg/dL High 0.70-1.30 [facility] Comment on above: Result Comment: Test ing performed on Siemens Dimension EXL analyzer using a modified kinetic Pati technique. Performed By: #### C MP, CBC, ADIFF, ANEU, URIC, GFR, LIPID #### [address] [address] Electrolyte Balance 5.0 mEq/L Normal 4.0-15.0 [facility] Comment on above: Performed By: #### C MP, CBC, ADIFF, ANEU, URIC, GFR, LIPID #### [address] [address] Globulin 3.5 G/dL Normal [facility] Comment on above: Performed By: #### C MP, CBC, ADIFF, ANEU, URIC, GFR, LIPID #### [address] [address] Glucose [Mass/Vol] 88 mg/dL Normal 83-110 [facility] Comment on above: Performed By: #### C MP, CBC, ADIFF, ANEU, URIC, GFR, LIPID #### [address] [address] Potassium [Moles/Vol] 4.2 mmol/L Normal 3.5-5.1 [facility] Comment on above: Performed By: #### C MP, CBC, ADIFF, ANEU, URIC, GFR, LIPID #### [place] [address] Sodium [Moles/Vol] 141 mmol/L Normal 136-145 [facility] Comment on above: Performed By: #### C MP, CBC, ADIFF, ANEU, URIC, GFR, LIPID #### [address] [address] Total Protein 6.7 G/dL Normal 6.4-8.2 [facility] Comment on above: Performed By: #### C MP, CBC, ADIFF, ANEU, URIC, GFR, LIPID #### [address] [address] Urea nitrogen [Mass/Vol] 27 mg/dL High 7-18 [facility] Comment on above: Performed By: #### C MP, CBC, ADIFF, ANEU, URIC, GFR, LIPID #### [address] [address] LABORATORYOrdered By: SYSTEM SYSTEM on 11-29-2023 Natriuretic [...] 11-29-2023 Cholesterol [Mass/Vol] 122 mg/dL Normal 0-200 [facility] Comment on above: Result Comment: Chol esterol Reference Interval: Less than 200 Desirable 200-239 Borderline high risk 240 and above High risk Performed By: #### C MP, CBC, ADIFF, ANEU, URIC, GFR, LIPID #### [address] [address] Cholesterol in HDL [Mass/Vol] 48 mg/dL Normal 40-60 [facility] Comment on above: Performed By: #### C MP, CBC, ADIFF, ANEU, URIC, GFR, LIPID #### [address] [address] Cholesterol in LDL [Mass/Vol] 40 mg/dL Normal 0-130 [facility] Comment on above: Performed By: #### C MP, CBC, ADIFF, ANEU, URIC, GFR, LIPID #### [address] [address] Triglyceride [Mass/Vol] 169 mg/dL High 0-150 [facility] Comment on above: Result Comment: Trig lyceride Reference Interval: Less than 150 Normal 150-199 Borderline high risk 200-499 High risk 500 or higher Very high risk Performed By: #### C MP, CBC, ADIFF, ANEU, URIC, GFR, LIPID #### [address] [address] PBNPon 11-29-2023 Natriuretic peptide B (Bld) [Mass/Vol] 357 pg/mL Normal 0-450 [facility] Comment on above: Result Comment: NT-p roBNP results of less than 300 pg/mL effectively rules out acute congestive heart failure with 99% negative predictive value. Performed By: #### P BNP #### [address] [place] [address] URICon 11-29-2023 Uric Acid Lvl 4.1 mg/dL Normal 3.5-7.2 [facility] Comment on above: Performed By: #### C MP, CBC, ADIFF, ANEU, URIC, GFR, LIPID #### [address] [address] Chest PA and Lateralon 11-27 Chest PA and Lateral [facility] [address] [place] [address] Chest PA and Lateral MR#: [id number] Acct: [id number] Name: FREDY BOX Rep #: [id number] : 1945 78 From: Arsh wells MD PCP: Dr. Angela Mera MD Status: REG CLI Study: Chest PA and Lateral Date of Exam: 11/28/23 Exam# [id number] Ordering Dr: Po Elmore MD -[id number] INDICATION: COUGH EXAMINATION/TECHNIQ UE: X-RAY - [...] Po Elmore MD; Dr. Angela Mera MD Cream Tester: Signed Normal [facility] No Panel Informationon 10-04 Zulema albicans Zulema albicans [facility] Culture Urine 10,000 - 50,000 cfu/ml Zulema albicans Contact Microbiology within 72 hours if further identification is indicated ([id number]). [place] counts from a single urine are equivocal in determining infection vs. colonization of yeast. Multiple cultures at least 24 hours apart may be helpful in differentiating colonization from infection. [facility] Absolute lymphocyte countOrd ered By: Lakesha Bettencourt on 07-23-2023 Lymphocytes Auto (Unsp spec) [#/Vol] 1.10 10*3/uL 0.83-4.51 [facility] Automated lymphocyte count a s percentage of total leukocytesOrdered By: Lakesha Bettencourt on 07-23-2023 Lymphocytes/100 WBC Auto (Unsp spec) 12.8 % 19-41 [facility] Basophil percentageOrdered B y: Lakesha Bettencourt on 07-23-2023 Basophils/100 WBC (Bld) 0.3 % 0-1 [facility] Chloride [Moles/Vol] 110 mmol/L 98-107 [facility] Eosinophils/100 WBC (Bld) 2.1 % 0-5 [facility] Glucose [Mass/Vol] 105 mg/dL 74-106 [facility] Comment on above: Fasting Glucose resu lt from 100 to 125 mg/dL suggests IMPAIRED HOMEOSTASIS per A.D.A. criteria. Hemoglobin (Bld) [Mass/Vol] 12.3 g/dL 13.0-16.5 [facility] Monocytes/100 WBC (Bld) 10.4 % 0-10 [facility] Neutrophils (Bld) [#/Vol] 6.4 10*3/uL 2.0-7.7 [facility] Neutrophils/100 WBC (Bld) 73.9 % 47-70 [facility] Potassium [Moles/Vol] 3.8 mmol/L 3.5-5.1 [facility] Sodium [Moles/Vol] 140 mmol/L 136-145 [facility] WBC (Bld) [#/Vol] 8.6 10*3/uL 4.4-11.0 [facility] Determination of erythrocyte mean corpuscular volume (MCV)Ordered By: Lakesha Bettencourt on 07-23-2023 MCV (RBC) [Entitic vol] 97.9 fL 80-94 [facility] Erythrocyte distribution wid th ratioOrdered By: Lakesha Bettencourt on 07-23-2023 Erythrocyte distribution width (RBC) [Ratio] 16.5 % 11.6-14.6 [facility] Erythrocyte distribution wid th standard deviationOrdered By: Lakesha Bettencourt on 07-23-2023 Erythrocyte distribution width (RBC) [Entitic vol] 58.7 fL 35.1-43.9 [facility] Hematocrit Auto (Bld) [Volum e fraction]Ordered By: Lakesha Bettencourt on 07-23-2023 Hematocrit (Bld) [Volume fraction] 37.8 % 40-54 [facility] Immature granulocytes/100 WB C Auto (Bld)Ordered By: Lakesha Bettencourt on 07-23-2023 Immature granulocytes/100 WBC (Bld) 0.500 % 0.0-0.9 [facility] Comment on above: IG% - Immature Granu locytes (promyelocytes, myelocytes and metamyelocytes) > 1% indicates that a LEFT SHIFT is Present. Laboratory - Chemistry and C hemistry - challengeOrdered By: Lakesha Bettencourt on 07-23-2023 CO2 [Moles/Vol] 24.0 mmol/L 21.0-32.0 [facility] Natriuretic peptide B (Bld) [Mass/Vol] 45.7 pg/mL 0-100 [facility] Urea nitrogen/Creatinine [Mass ratio] 23.7 mg/mg 10-20 [facility] Laboratory - Hematology and Cell countsOrdered By: Lakesha Bettencourt on 07-23-2023 MCH (RBC) [Entitic mass] 31.9 pg 27.0-32.0 [facility] MCHC (RBC) [Mass/Vol] 32.5 g/dL 32-36 [facility] Nucleated RBC/100 WBC (Bld) [Ratio] 0 % 0-5 [facility] Platelet mean volume (Bld) [Entitic vol] 8.9 fL 6.2-12.0 [facility] Platelets (Bld) [#/Vol] 167 10*3/uL 150-450 [facility] No Panel InformationOrdered By: Lakesha Bettencourt on 07-23-2023 Estimated GFR (MDRD) Amer 51 mL/min >60 [facility] Comment on above: GFR Calc Estimated GFR (MDRD) Non-Af Amer 42 mL/min >60 [facility] Comment on above: Non- GFR Calc Free Triiodothyronine (T3) pg/dL 2.3 pg/mL 2.18-3.98 [facility] RBC Auto (Bld) [#/Vol]Ordere d By: Lakesha Bettencourt on 07-23-2023 RBC (Bld) [#/Vol] 3.86 10*6/uL 4.6-6.2 [facility] Serum or plasma calcium ender urement (mass/volume)Ordered By: Lakesha Bettencourt on 07-23-2023 Calcium [Mass/Vol] 9.4 mg/dL 8.5-10.1 [facility] Serum or plasma creatinine m easurement (mass/volume)Ordered By: Lakesha Bettencourt on 07-23-2023 Creatinine [Mass/Vol] 1.69 mg/dL 0.70-1.30 [facility] Comment on above: The validity of the calculated GFR & GFRAA in patients over 70 years has not been determined. Clinical correlation is essential. Serum or plasma thyroid stim ulating hormone (TSH) measurement (units/volume)Ordered By: Lakesha Bettencourt on 07-23-2023 TSH Qn 1.19 uIU/mL 0.358-3.74 [facility] Serum or plasma urea nitroge n measurement (mass/volume)Ordered By: Lakesha Bettencourt on 07-23-2023 Urea nitrogen [Mass/Vol] 40 mg/dL 7-18 [facility] Thin prep Papanicolaou smear with manual screeningOrdered By: Lakesha Bettencourt on 07-23-2023 Thin prep Papanicolaou smear with manual screening 6 5-15 [facility] Thin prep Papanicolaou smear with manual screening 0.84 ng/dL 0.76-1.46 [facility] .Auto Diffon 07-04-2023 Basophil, Absolute 0.0 10 3/mcL Normal 0.0-0.2 [facility] ([place]) Comment on above: Performed By: #### C MP, ADIFF, ANEU, GFR, URIC, CBC #### [address] [address] Basophils/100 WBC (Bld) 0.7 % Normal 0.0-2.5 A [facility] ([place] Comment on above: Performed By: #### C MP, ADIFF, ANEU, GFR, URIC, CBC #### [address] [address] Eosinophil, Absolute 0.3 10 3/mcL Normal 0.0-0.4 [facility] ([place]) Comment on above: Performed By: #### C MP, ADIFF, ANEU, GFR, URIC, CBC #### [address] [address] Eosinophils/100 WBC (Bld) 6.0 % Normal 0.0-7.0 [facility] ([place]) Comment on above: Performed By: #### C MP, ADIFF, ANEU, GFR, URIC, CBC #### [address] [address] Lymphocyte, Absolute 0.7 10 3/mcL Low 0.8-3.9 [facility] ([place] Comment on above: Performed By: #### C MP, ADIFF, ANEU, GFR, URIC, CBC #### [address] [address] Lymphocytes/100 WBC (Bld) 13.7 % Normal 10.0-50.0 [facility] ([place] Comment on above: Performed By: #### C MP, ADIFF, ANEU, GFR, URIC, CBC #### [address] [address] Monocyte, Absolute 0.6 10 3/mcL Normal 0.2-1.0 [facility] ([place] Comment on above: Performed By: #### C MP, ADIFF, ANEU, GFR, URIC, CBC #### [address] [address] Monocytes/100 WBC (Bld) 10.9 % Normal 1.7-13.0 A [facility] ([place] Comment on above: Performed By: #### C MP, ADIFF, ANEU, GFR, URIC, CBC #### [address] [address] Neutrophils/100 WBC (Bld) 68.7 % Normal 37.0-80.0 [facility] ([place] Comment on above: Performed By: #### C MP, ADIFF, ANEU, GFR, URIC, CBC #### [address] [address] .GFRon 07-04-2023 GFR Non- 37 ml/min/1.73sqm Normal [facility] ([place] Comment on above: Result Comment: GFR Population [...] MP, ADIFF, ANEU, GFR, URIC, CBC #### [address] [address] GFR 45 ml/min/1.73sqm Normal [facility] ([place] Comment on above: Result Comment: GFR Population [...] ANEU, GFR, URIC, CBC #### [place] [id number] .NEUABSon 07-04-2023 Neutrophil, Absolute 3.5 10 3/mcL Normal 2.9-6.2 [facility] [place] Comment on above: Performed By: #### C MP, ADIFF, ANEU, GFR, URIC, CBC #### [place] [address] CBCon 07-04-2023 Erythrocyte distribution width (RBC) [Ratio] 17.9 % High 11.5-14.5 [facility] [place] Comment on above: Performed By: #### C MP, ADIFF, ANEU, GFR, URIC, CBC #### [place] [address] Hematocrit (Bld) [Volume fraction] 37.2 % Low 42.0-52.0 [facility] [place] Comment on above: Performed By: #### C MP, ADIFF, ANEU, GFR, URIC, CBC #### [place] [address] Hgb 12.4 G/dL Low 14.0-18.0 [facility] [place] Comment on above: Performed By: #### C MP, ADIFF, ANEU, GFR, URIC, CBC #### [place] [address] MCH (RBC) [Entitic mass] 33.0 pg High 27.0-31.2 [facility] [place] Comment on above: Performed By: #### C MP, ADIFF, ANEU, GFR, URIC, CBC #### [place] [address] MCHC 33.4 G/dL Normal 31.8-35.4 [facility] [place] Comment on above: Performed By: #### C MP, ADIFF, ANEU, GFR, URIC, CBC #### [address] [address] MCV (RBC) [Entitic vol] 98.6 fL High 80.0-94.0 A [facility] ([place] Comment on above: Performed By: #### C MP, ADIFF, ANEU, GFR, URIC, CBC #### [address] [address] Platelet 181 10 3/mcL Normal 130-400 [facility] [place] Comment on above: Performed By: #### C MP, ADIFF, ANEU, GFR, URIC, CBC #### [address] [address] Platelet mean volume (Bld) [Entitic vol] 7.5 fL Normal 7.4-10.4 [facility] [place] Comment on above: Performed By: #### C MP, ADIFF, ANEU, GFR, URIC, CBC #### [address] [address] RBC 3.77 10 6/mcL Low 4.04-6.13 [facility] [place] Comment on above: Performed By: #### C MP, ADIFF, ANEU, GFR, URIC, CBC #### [address] [address] WBC 5.1 10 3/mcL Normal 4.6-10.8 [facility] [place] Comment on above: Performed By: #### C MP, ADIFF, ANEU, GFR, URIC, CBC #### [address] [address] CMPon 07-04-2023 Albumin Level 3.2 G/dL Low 3.4-4.8 [facility] [place] Comment on above: Performed By: #### C MP, ADIFF, ANEU, GFR, URIC, CBC #### [address] [address] Albumin/Globulin [Mass ratio] 1.0 {ratio} Low 1.1-2.5 [facility] [place] Comment on above: Performed By: #### C MP, ADIFF, ANEU, GFR, URIC, CBC #### [address] [address] ALP [Catalytic activity/Vol] 89 U/L Normal 40-135 [facility] [place] Comment on above: Performed By: #### C MP, ADIFF, ANEU, GFR, URIC, CBC #### [address] [address] ALT [Catalytic activity/Vol] 26 U/L Normal 16-63 [facility] [place] Comment on above: Performed By: #### C MP, ADIFF, ANEU, GFR, URIC, CBC #### [address] [address] AST [Catalytic activity/Vol] 19 U/L Normal 10-40 [facility] [place] Comment on above: Performed By: #### C MP, ADIFF, ANEU, GFR, URIC, CBC #### [address] [address] Bili Total 0.4 mg/dL Normal 0.2-1.0 [facility] [place] Comment on above: Result Comment: Use of this assay is not recommended for patients undergoing treatment with eltrombopag due to the potential for falsely elevated results. Performed By: #### C MP, ADIFF, ANEU, GFR, URIC, CBC #### [address] [address] BUN/Creatinine Ratio 22 ratio Normal 7-27 [facility] ([place] Comment on above: Performed By: #### C MP, ADIFF, ANEU, GFR, URIC, CBC #### [address] [address] Calcium [Mass/Vol] 8.5 mg/dL Normal 8.4-10.2 [facility] ([place]) Comment on above: Performed By: #### C MP, ADIFF, ANEU, GFR, URIC, CBC #### [address] [address] Chloride [Moles/Vol] 106 mmol/L Normal 98-107 [facility] [place] Comment on above: Performed By: #### C MP, ADIFF, ANEU, GFR, URIC, CBC #### [address] [address] CO2 [Moles/Vol] 25 mmol/L Normal 23-31 [facility] [place] Comment on above: Performed By: #### C MP, ADIFF, ANEU, GFR, URIC, CBC #### [address] [address] Creatinine [Mass/Vol] 1.77 mg/dL High 0.70-1.30 [facility] ([place] Comment on above: Performed By: #### C MP, ADIFF, ANEU, GFR, URIC, CBC #### [address] [address] Electrolyte Balance 8.0 mEq/L Normal 4.0-15.0 [facility] ([place] Comment on above: Performed By: #### C MP, ADIFF, ANEU, GFR, URIC, CBC #### [address] [address] Globulin 3.3 G/dL Normal [facility] [place] Comment on above: Performed By: #### C MP, ADIFF, ANEU, GFR, URIC, CBC #### [address] [address] Glucose [Mass/Vol] 103 mg/dL Normal 83-110 [facility] [place] Comment on above: Performed By: #### C MP, ADIFF, ANEU, GFR, URIC, CBC #### [address] [address] Potassium [Moles/Vol] 4.1 mmol/L Normal 3.5-5.1 [facility] ([place] Comment on above: Performed By: #### C MP, ADIFF, ANEU, GFR, URIC, CBC #### [address] [address] Sodium [Moles/Vol] 139 mmol/L Normal 136-145 [facility] ([place] Comment on above: Performed By: #### C MP, ADIFF, ANEU, GFR, URIC, CBC #### [place] [address] [place], [place] [address] Total Protein 6.5 G/dL Normal 6.4-8.2 [facility] [place] Comment on above: Performed By: #### C MP, ADIFF, ANEU, GFR, URIC, CBC #### [place] [address] [place], [place] [address] Urea nitrogen [Mass/Vol] 39 mg/dL High 7-18 [facility] [place] Comment on above: Performed By: #### C MP, ADIFF, ANEU, GFR, URIC, CBC #### [place] [address] [place], [place] [address] LABORATORYOrdered By: SYSTEM SYSTEM on 07-04-2023 Albumin [...] Uric Acid Lvl 6.6 mg/dL Normal 3.5-7.2 [facility] [place] Comment on above: Performed By: #### C MP, ADIFF, ANEU, GFR, URIC, CBC #### [place] [address] [place], [place] [address] CT ANGIOGRAPHY CHEST W/CONTR [place] 06-22-2023 CT [...] 06/22/2023 12:25:09 PM Ordering Provider: ANGELA Rodrigez [facility] [place] XR CHEST 2 VIEWSon XR CHEST 2 [...] 06/22/2023 3:28:10 PM Ordering Provider: ANGELA MERA [facility] ([place]) .GFRon 06-21-2023 GFR 68 ml/min/1.73sqm Normal [facility] [place] Comment on above: Result Comment: GFR Population [...] MORPH, URIC, CK, TROPHS, DIMER, GFR ####[address] [place], [place] [address] GFR Non- 56 ml/min/1.73sqm Normal [facility] [place] Comment on above: Result Comment: GFR Population [...] URIC, CK, TROPHS, DIMER, GFR ####[address] [place], [place] [address] .Manual Diffon 06-21-2023 Basophil %, Manual 0.0 % Normal 0.0-2.5 [facility] ([place] Comment on above: Performed By: #### C BC, CMP, DIFF, MG, MORPH, URIC, CK, TROPHS, DIMER, GFR ####[address] [place], [place] [address] Basophil, Abs Manual 0.0 10 3/mcL Normal 0.0-0.2 [facility] [place] Comment on above: Performed By: #### C BC, CMP, DIFF, MG, MORPH, URIC, CK, TROPHS, DIMER, GFR ###[address] [place], [place] [address] Eosinophil %, Manual 3.0 % Normal 0.0-7.0 [facility] ([place] Comment on above: Performed By: #### C BC, CMP, DIFF, MG, MORPH, URIC, CK, TROPHS, DIMER, GFR ####[address] [place], [place] [address] Eosinophil, Abs Manual 0.3 10 3/mcL Normal 0.0-0.4 [facility] [place] Comment on above: Performed By: #### C BC, CMP, DIFF, MG, MORPH, URIC, CK, TROPHS, DIMER, GFR ####[address] [place], [place] [address] Lymphocyte %, Manual 19.0 % Normal 10.0-50.0 [facility] ([place] Comment on above: Performed By: #### C BC, CMP, DIFF, MG, MORPH, URIC, CK, TROPHS, DIMER, GFR ####[address] [place], [place] [address] Lymphocyte, Abs Manual 1.9 10 3/mcL Normal 0.8-3.9 [facility] [place] Comment on above: Performed By: #### C BC, CMP, DIFF, MG, MORPH, URIC, CK, TROPHS, DIMER, GFR ####[address] [place], [place] [address] Monocyte %, Manual 5.0 % Normal 1.7-13.0 [facility] ([place] Comment on above: Performed By: #### C BC, CMP, DIFF, MG, MORPH, URIC, CK, TROPHS, DIMER, GFR ####[address] [place], [place] [address] Monocyte, Abs Manual 0.5 10 3/mcL Normal 0.2-1.0 [facility] [place] Comment on above: Performed By: #### C BC, CMP, DIFF, MG, MORPH, URIC, CK, TROPHS, DIMER, GFR ####[address] [place], [place] [address] Neutrophil %, Manual 73.0 % Normal 37.0-80.0 [facility] ([place] Comment on above: Performed By: #### C BC, CMP, DIFF, MG, MORPH, URIC, CK, TROPHS, DIMER, GFR ####[address] [place], [place] [address] Neutrophil, Abs Manual 7.1 10 3/mcL High 2.9-6.2 [facility] ([place] Comment on above: Performed By: #### C BC, CMP, DIFF, MG, MORPH, URIC, CK, TROPHS, DIMER, GFR ####[address] [place], [place] [address] Nucleated RBC 0.0 /100 WBC Normal [facility] ([place] Comment on above: Performed By: #### C BC, CMP, DIFF, MG, MORPH, URIC, CK, TROPHS, DIMER, GFR ####[address] [place], [place] [address] .Morphon 06-21-2023 Platelet Estimate Normal Normal [facility] ([place] Comment on above: Performed By: #### C BC, CMP, DIFF, MG, MORPH, URIC, CK, TROPHS, DIMER, GFR ####Marissa [address] [place] [id number] CBCon 06-21-2023 Erythrocyte distribution width (RBC) [Ratio] 18.0 % High 11.5-14.5 [facility] ([place] Comment on above: Performed By: #### C BC, CMP, DIFF, MG, MORPH, URIC, CK, TROPHS, DIMER, GFR ####[address] [place] [address] Hematocrit (Bld) [Volume fraction] 37.5 % Low 42.0-52.0 [facility] [place] Comment on above: Performed By: #### C BC, CMP, DIFF, MG, MORPH, URIC, CK, TROPHS, DIMER, GFR ####[address] [place] [address] Hgb 12.7 G/dL Low 14.0-18.0 [facility] [place] Comment on above: Performed By: #### C BC, CMP, DIFF, MG, MORPH, URIC, CK, TROPHS, DIMER, GFR ####[address] [place] [address] MCH (RBC) [Entitic mass] 33.9 pg High 27.0-31.2 [facility] [place] Comment on above: Performed By: #### C BC, CMP, DIFF, MG, MORPH, URIC, CK, TROPHS, DIMER, GFR ####[address] [place] [address] MCHC 33.9 G/dL Normal 31.8-35.4 [facility] [place] Comment on above: Performed By: #### C BC, CMP, DIFF, MG, MORPH, URIC, CK, TROPHS, DIMER, GFR ####[address] [place], [place] [address] MCV (RBC) [Entitic vol] 100.1 fL High 80.0-94.0 A [facility] ([place] Comment on above: Performed By: #### C BC, CMP, DIFF, MG, MORPH, URIC, CK, TROPHS, DIMER, GFR ####[address] [place], [place] [address] Platelet 228 10 3/mcL Normal 130-400 [facility] ([place] Comment on above: Performed By: #### C BC, CMP, DIFF, MG, MORPH, URIC, CK, TROPHS, DIMER, GFR ####[address] [place], [place] [address] Platelet mean volume (Bld) [Entitic vol] 7.1 fL Low 7.4-10.4 [facility] [place] Comment on above: Performed By: #### C BC, CMP, DIFF, MG, MORPH, URIC, CK, TROPHS, DIMER, GFR ####[address] [place], [place] [address] RBC 3.74 10 6/mcL Low 4.04-6.13 [facility] [place] Comment on above: Performed By: #### C BC, CMP, DIFF, MG, MORPH, URIC, CK, TROPHS, DIMER, GFR ####[address] [place], [place] [address] WBC 9.8 10 3/mcL Normal 4.6-10.8 [facility] [place] Comment on above: Performed By: #### C BC, CMP, DIFF, MG, MORPH, URIC, CK, TROPHS, DIMER, GFR ####[address] [place], [place] [address] CKon 06-21-2023 CK [Catalytic activity/Vol] 50 U/L Normal 39-308 [facility] ([place] Comment on above: Performed By: #### C BC, CMP, DIFF, MG, MORPH, URIC, CK, TROPHS, DIMER, GFR ####[address] [place], [place] [address] CMPon 06-21-2023 Albumin Level 2.7 G/dL Low 3.4-4.8 [facility] [place] Comment on above: Performed By: #### C BC, CMP, DIFF, MG, MORPH, URIC, CK, TROPHS, DIMER, GFR ####[address] [place], [place] [address] Albumin/Globulin [Mass ratio] 0.8 {ratio} Low 1.1-2.5 [facility] ([place] Comment on above: Performed By: #### C BC, CMP, DIFF, MG, MORPH, URIC, CK, TROPHS, DIMER, GFR ####[address] [place], [place] [address] ALP [Catalytic activity/Vol] 95 U/L Normal 40-135 [facility] [place] Comment on above: Performed By: #### C BC, CMP, DIFF, MG, MORPH, URIC, CK, TROPHS, DIMER, GFR ####[address] [place], [place] [address] ALT [Catalytic activity/Vol] 59 U/L Normal 16-63 [facility] ([place] Comment on above: Performed By: #### C BC, CMP, DIFF, MG, MORPH, URIC, CK, TROPHS, DIMER, GFR ####[address] [place], [place] [address] AST [Catalytic activity/Vol] 25 U/L Normal 10-40 [facility] [place] Comment on above: Performed By: #### C BC, CMP, DIFF, MG, MORPH, URIC, CK, TROPHS, DIMER, GFR ####[address] [place], [place] [address] Bili Total 0.4 mg/dL Normal 0.2-1.0 [facility] ([place] Comment on above: Result Comment: Use of this assay is not recommended for patients undergoing treatment with eltrombopag due to the potential for falsely elevated results. Performed By: #### C BC, CMP, DIFF, MG, MORPH, URIC, CK, TROPHS, DIMER, GFR ####[address] [place], [place] [address] BUN/Creatinine Ratio 29 ratio High 7-27 [facility] ([place] Comment on above: Performed By: #### C BC, CMP, DIFF, MG, MORPH, URIC, CK, TROPHS, DIMER, GFR ####[address] [place], [place] [address] Calcium [Mass/Vol] 8.0 mg/dL Low 8.4-10.2 [facility] ([place] Comment on above: Performed By: #### C BC, CMP, DIFF, MG, MORPH, URIC, CK, TROPHS, DIMER, GFR ####[address] [place], [place] [address] Chloride [Moles/Vol] 106 mmol/L Normal 98-107 [facility] ([place] Comment on above: Performed By: #### C BC, CMP, DIFF, MG, MORPH, URIC, CK, TROPHS, DIMER, GFR ####[address] [place], [place] [address] CO2 [Moles/Vol] 27 mmol/L Normal 23-31 [facility] ([place] Comment on above: Performed By: #### C BC, CMP, DIFF, MG, MORPH, URIC, CK, TROPHS, DIMER, GFR ####[address] [place], [place] [address] Creatinine [Mass/Vol] 1.25 mg/dL Normal 0.70-1.30 [facility] ([place] Comment on above: Performed By: #### C BC, CMP, DIFF, MG, MORPH, URIC, CK, TROPHS, DIMER, GFR ####[address] [place], [place] [address] Electrolyte Balance 12.0 mEq/L Normal 4.0-15.0 [facility] ([place] Comment on above: Performed By: #### C BC, CMP, DIFF, MG, MORPH, URIC, CK, TROPHS, DIMER, GFR ####[address] [place], [place] [address] Globulin 3.2 G/dL Normal [facility] ([place] Comment on above: Performed By: #### C BC, CMP, DIFF, MG, MORPH, URIC, CK, TROPHS, DIMER, GFR ####[address] [place], [place] [address] Glucose [Mass/Vol] 75 mg/dL Low 83-110 [facility] ([place] Comment on above: Performed By: #### C BC, CMP, DIFF, MG, MORPH, URIC, CK, TROPHS, DIMER, GFR ####[address] [place], [place] [address] Potassium [Moles/Vol] 4.4 mmol/L Normal 3.5-5.1 [facility] ([place] Comment on above: Performed By: #### C BC, CMP, DIFF, MG, MORPH, URIC, CK, TROPHS, DIMER, GFR ####[address] [place], [place] [address] Sodium [Moles/Vol] 145 mmol/L Normal 136-145 [facility] ([place] Comment on above: Performed By: #### C BC, CMP, DIFF, MG, MORPH, URIC, CK, TROPHS, DIMER, GFR ####[address] [place], [place] [address] Total Protein 5.9 G/dL Low 6.4-8.2 [facility] [place] Comment on above: Performed By: #### C BC, CMP, DIFF, MG, MORPH, URIC, CK, TROPHS, DIMER, GFR ####[address] [place], [place] [address] Urea nitrogen [Mass/Vol] 36 mg/dL High 7-18 [facility] [place] Comment on above: Performed By: #### C BC, CMP, DIFF, MG, MORPH, URIC, CK, TROPHS, DIMER, GFR ####[address] [place], [place] [address] DIMERon 06-21-2023 D-Dimer 789 ng/mL D-DU High 0-230 [facility] ([place] Comment on above: Result Comment: Resu lts [...] MORPH, URIC, CK, TROPHS, DIMER, GFR ####Marissa [address] [place] [address] LABORATORYOrdered By: SYSTEM SYSTEM on 06-21-2023 Natriuretic [...] ng/L Male: 0-76 ng/L Testing performed on [employer] using a homogeneous sandwich chemiluminescent immunoassay based on [employer] technology. Urea nitrogen [Mass/Vol] 36 mg/dL High [...] 06-21-2023 Magnesium [Mass/Vol] 1.7 mg/dL Low 1.8-2.4 [facility] ([place] Comment on above: Performed By: #### C BC, CMP, DIFF, MG, MORPH, URIC, CK, TROPHS, DIMER, GFR ####[address] [address] PBNPon 06-21-2023 Natriuretic peptide B (Bld) [Mass/Vol] 2073 pg/mL High 0-450 [facility] ([place] Comment on above: Result Comment: NT-p roBNP results of less than 300 pg/mL effectively rules out acute congestive heart failure with 99% negative predictive value. Performed By: #### P BNP #### [address] [address] TROPHSon 06-21-2023 High Sensitivity Troponin I 13 ng/L Normal 0-76 [facility] ([place] Comment on above: Result Comment: High Sensitive Troponin I Reference Ranges: Female: 0-51 ng/L Male: 0-76 ng/L Testing performed on [employer] using a homogeneous sandwich chemiluminescent immunoassay based on [employer] technology. Performed By: #### C BC, CMP, DIFF, MG, MORPH, URIC, CK, TROPHS, DIMER, GFR ####[place] [address] URICon 06-21-2023 Uric Acid Lvl 4.5 mg/dL Normal 3.5-7.2 [facility] ([place] Comment on above: Performed By: #### C BC, CMP, DIFF, MG, MORPH, URIC, CK, TROPHS, DIMER, GFR ####[address]issa [address] [place], [place] [address] Absolute lymphocyte countOrd ered By: Heath Mitchell on 05-03-2023 Lymphocytes Auto (Unsp spec) [#/Vol] 0.98 10*3/uL 0.83-4.51 [facility] Automated lymphocyte count a s percentage of total leukocytesOrdered By: sandra Mitchell on 05-03-2023 Lymphocytes/100 WBC Auto (Unsp spec) 17.7 % 19-41 [facility] Basophil percentageOrdered B y: Brooklynsandra Mitchell on 05-03-2023 Basophils/100 WBC (Bld) 0.9 % 0-1 [facility] Chloride [Moles/Vol] 110 mmol/L 98-107 [facility] Eosinophils/100 WBC (Bld) 3.4 % 0-5 [facility] Glucose [Mass/Vol] 94 mg/dL 74-106 [facility] Hemoglobin (Bld) [Mass/Vol] 9.7 g/dL 13.0-16.5 [facility] Monocytes/100 WBC (Bld) 14.6 % 0-10 [facility] Neutrophils (Bld) [#/Vol] 3.5 10*3/uL 2.0-7.7 [facility] Neutrophils/100 WBC (Bld) 62.5 % 47-70 [facility] Potassium [Moles/Vol] 4.3 mmol/L 3.5-5.1 [facility] Sodium [Moles/Vol] 142 mmol/L 136-145 [facility] WBC (Bld) [#/Vol] 5.6 10*3/uL 4.4-11.0 [facility] Determination of erythrocyte mean corpuscular volume (MCV)Ordered By: sandra Mitchell on 05-03-2023 MCV (RBC) [Entitic vol] 106.6 fL 80-94 [facility] Erythrocyte distribution wid th ratioOrdered By: johnnamullanjoi Mitchell on 05-03-2023 Erythrocyte distribution width (RBC) [Ratio] 15.2 % 11.6-14.6 [facility] Erythrocyte distribution wid th standard deviationOrdered By: johnnamullanjoi Guzmanmili on 05-03-2023 Erythrocyte distribution width (RBC) [Entitic vol] 58.5 fL 35.1-43.9 [facility] Hematocrit Auto (Bld) [Volum e fraction]Ordered By: Heath Mitchell on 05-03-2023 Hematocrit (Bld) [Volume fraction] 30.9 % 40-54 [facility] Immature granulocytes/100 WB C Auto (Bld)Ordered By: Heath Mitchell on 05-03-2023 Immature granulocytes/100 WBC (Bld) 0.900 % 0.0-0.9 [facility] Comment on above: IG% - Immature Granu locytes (promyelocytes, myelocytes and metamyelocytes) > 1% indicates that a LEFT SHIFT is Present. Laboratory - Chemistry and C hemistry - challengeOrdered By: Heath Mitchell on 05-03-2023 CO2 [Moles/Vol] 25.0 mmol/L 21.0-32.0 [facility] Urea nitrogen/Creatinine [Mass ratio] 22.3 mg/mg 10-20 [facility] Laboratory - Hematology and Cell countsOrdered By: Heath Mitchell on 05-03-2023 MCH (RBC) [Entitic mass] 33.4 pg 27.0-32.0 [facility] MCHC (RBC) [Mass/Vol] 31.4 g/dL 32-36 [facility] Nucleated RBC/100 WBC (Bld) [Ratio] 0.4 % 0-5 [facility] Platelet mean volume (Bld) [Entitic vol] 9.1 fL 6.2-12.0 [facility] Platelets (Bld) [#/Vol] 339 10*3/uL 150-450 [facility] No Panel InformationOrdered By: Heath Mitchell on 05-03-2023 Estimated GFR (MDRD) Amer 75 mL/min >60 [facility] Comment on above: GFR Calc Estimated GFR (MDRD) Non-Af Amer 62 mL/min >60 [facility] Comment on above: Non- GFR Calc RBC Auto (Bld) [#/Vol]Ordere d By: Heath Mitchell on 05-03-2023 RBC (Bld) [#/Vol] 2.90 10*6/uL 4.6-6.2 [facility] Serum or plasma calcium ender urement (mass/volume)Ordered By: Heath Mitchell on 05-03-2023 Calcium [Mass/Vol] 8.9 mg/dL 8.5-10.1 [facility] Serum or plasma creatinine m easurement (mass/volume)Ordered By: Heath Mitchell on 05-03-2023 Creatinine [Mass/Vol] 1.21 mg/dL 0.70-1.30 [facility] Comment on above: The validity of the calculated GFR & GFRAA in patients over 70 years has not been determined. Clinical correlation is essential. Serum or plasma urea nitroge n measurement (mass/volume)Ordered By: Heath Mitchell on 05-03-2023 Urea nitrogen [Mass/Vol] 27 mg/dL 7-18 [facility] Thin prep Papanicolaou smear with manual screeningOrdered By: sandra Mitchell on 05-03-2023 Thin prep Papanicolaou smear with manual screening 7 - [facility] Absolute lymphocyte countOrd ered By: sandra Mitchell on 04-26-2023 Lymphocytes Auto (Unsp spec) [#/Vol] 0.78 10*3/uL 0.83-4.51 [facility] Automated lymphocyte count a s percentage of total leukocytesOrdered By: Heath Mitchell on 04-26-2023 Lymphocytes/100 WBC Auto (Unsp spec) 13.6 % 19-41 [facility] Basophil percentageOrdered B y: Heath Mitchell on 04-26-2023 Basophils/100 WBC (Bld) 0.5 % 0-1 [facility] Chloride [Moles/Vol] 113 mmol/L 98-107 [facility] Eosinophils/100 WBC (Bld) 1.6 % 0-5 [facility] Glucose [Mass/Vol] 92 mg/dL 74-106 [facility] Hemoglobin (Bld) [Mass/Vol] 8.9 g/dL 13.0-16.5 [facility] Monocytes/100 WBC (Bld) 10.5 % 0-10 [facility] Neutrophils (Bld) [#/Vol] 4.2 10*3/uL 2.0-7.7 [facility] Neutrophils/100 WBC (Bld) 72.9 % 47-70 [facility] Potassium [Moles/Vol] 4.1 mmol/L 3.5-5.1 [facility] Sodium [Moles/Vol] 141 mmol/L 136-145 [facility] WBC (Bld) [#/Vol] 5.7 10*3/uL 4.4-11.0 [facility] Determination of erythrocyte mean corpuscular volume (MCV)Ordered By: Heath Mitchell on 04-26-2023 MCV (RBC) [Entitic vol] 103.7 fL 80-94 [facility] Erythrocyte distribution wid th ratioOrdered By: Caramullanjoi Mitchell on 04-26-2023 Erythrocyte distribution width (RBC) [Ratio] 15.0 % 11.6-14.6 [facility] Erythrocyte distribution wid th standard deviationOrdered By: Heath Mitchell on 04-26-2023 Erythrocyte distribution width (RBC) [Entitic vol] 55.8 fL 35.1-43.9 [facility] Hematocrit Auto (Bld) [Volum e fraction]Ordered By: Heath Mitchell on 04-26-2023 Hematocrit (Bld) [Volume fraction] 27.8 % 40-54 [facility] Immature granulocytes/100 WB C Auto (Bld)Or[facility]: [facility] on 04-26-2023 Immature granulocytes/100 WBC (Bld) 0.900 % 0.0-0.9 [facility] Comment on above: IG% - Immature Granu locytes (promyelocytes, myelocytes and metamyelocytes) > 1% indicates that a LEFT SHIFT is Present. Laboratory - Chemistry and C hemistry - challengeOrdered By: Heath Mitchell on 04-26-2023 CO2 [Moles/Vol] 25.0 mmol/L 21.0-32.0 [facility] Urea nitrogen/Creatinine [Mass ratio] 24.5 mg/mg 10-20 [facility] Laboratory - Hematology and Cell countsOrdered By: Heath Mitchell on 04-26-2023 MCH (RBC) [Entitic mass] 33.2 pg 27.0-32.0 [facility] MCHC (RBC) [Mass/Vol] 32.0 g/dL 32-36 [facility] Nucleated RBC/100 WBC (Bld) [Ratio] 0 % 0-5 [facility] Platelet mean volume (Bld) [Entitic vol] 9.5 fL 6.2-12.0 [facility] Platelets (Bld) [#/Vol] 278 10*3/uL 150-450 [facility] No Panel InformationOrdered By: Heath Mitchell on 04-26-2023 Estimated GFR (MDRD) Amer 87 mL/min >60 [facility] Comment on above: GFR Calc Estimated GFR (MDRD) Non-Af Amer 72 mL/min >60 [facility] Comment on above: Non- GFR Calc RBC Auto (Bld) [#/Vol]Ordere d By: Heath Mitchell on 04-26-2023 RBC (Bld) [#/Vol] 2.68 10*6/uL 4.6-6.2 [facility] Serum or plasma calcium ender urement (mass/volume)Ordered By: Heath Mitchell on 04-26-2023 Calcium [Mass/Vol] 8.8 mg/dL 8.5-10.1 [facility] Serum or plasma creatinine m easurement (mass/volume)Ordered By: Heath Mitchell on 04-26-2023 Creatinine [Mass/Vol] 1.06 mg/dL 0.70-1.30 [facility] Comment on above: The validity of the calculated GFR & GFRAA in patients over 70 years has not been determined. Clinical correlation is essential. Serum or plasma urea nitroge n measurement (mass/volume)Ordered By: Heath Mitchell on 04-26-2023 Urea nitrogen [Mass/Vol] 26 mg/dL 7-18 [facility] Thin prep Papanicolaou smear with manual screeningOrdered By: Heath Mitchell on 04-26-2023 Thin prep Papanicolaou smear with manual screening 3 5-15 [facility] Absolute lymphocyte countOrd ered By: Heath Mitchell on 04-20-2023 Lymphocytes Auto (Unsp spec) [#/Vol] 0.76 10*3/uL 0.83-4.51 [facility] Automated lymphocyte count a s percentage of total leukocytesOrdered By: Blakejoi Guzmanchica on 04-20-2023 Lymphocytes/100 WBC Auto (Unsp spec) 11.0 % 19-41 [facility] Basophil percentageOrdered B y: Heath Thomaschica on 04-20-2023 Basophils/100 WBC (Bld) 0.3 % 0-1 [facility] Bilirubin [Mass/Vol] 2.00 mg/dL 0.20-1.00 [facility] Comment on above: For patients on eltr ombopag therapy, use of Dimension [place] TBIL is not recommended. Chloride [Moles/Vol] 114 mmol/L 98-107 [facility] Eosinophils/100 WBC (Bld) 2.2 % 0-5 [facility] Glucose [Mass/Vol] 100 mg/dL 74-106 [facility] Comment on above: Fasting Glucose resu lt from 100 to 125 mg/dL suggests IMPAIRED HOMEOSTASIS per A.D.A. criteria. Hemoglobin (Bld) [Mass/Vol] 8.5 g/dL 13.0-16.5 [facility] Monocytes/100 WBC (Bld) 8.7 % 0-10 [facility] Neutrophils (Bld) [#/Vol] 5.1 10*3/uL 2.0-7.7 [facility] Neutrophils/100 WBC (Bld) 72.9 % 47-70 [facility] Potassium [Moles/Vol] 3.7 mmol/L 3.5-5.1 [facility] Protein [Mass/Vol] 6.3 g/dL 6.4-8.2 [facility] Sodium [Moles/Vol] 144 mmol/L 136-145 [facility] WBC (Bld) [#/Vol] 6.9 10*3/uL 4.4-11.0 [facility] Determination of erythrocyte mean corpuscular volume (MCV)Ordered By: Heath Mitchell on 04-20-2023 MCV (RBC) [Entitic vol] 105.9 fL 80-94 [facility] Erythrocyte distribution wid th ratioOrdered By: [facility] Paula on 04-20-2023 Erythrocyte distribution width (RBC) [Ratio] 14.6 % 11.6-14.6 [facility] Erythrocyte distribution wid th standard deviationOrdered By: [facility] Thomasmili on 04-20-2023 Erythrocyte distribution width (RBC) [Entitic vol] 55.2 fL 35.1-43.9 [facility] Hematocrit Auto (Bld) [Volum e fraction]Ordered By: [facility] Paula on 04-20-2023 Hematocrit (Bld) [Volume fraction] 26.8 % 40-54 [facility] Immature granulocytes/100 WB C Auto (Bld)Ordered By: [facility] Thomasmili on 04-20-2023 Immature granulocytes/100 WBC (Bld) 4.900 % 0.0-0.9 [facility] Comment on above: IG% - Immature Granu locytes (promyelocytes, myelocytes and metamyelocytes) > 1% indicates that a LEFT SHIFT is Present. Laboratory - Chemistry and C hemistry - challengeOrdered By: [facility] Thomasmili on 04-20-2023 Albumin/Globulin [Mass ratio] 0.7 {ratio} 0.9-2.4 [facility] ALP [Catalytic activity/Vol] 77 U/L 45-117 [facility] ALT [Catalytic activity/Vol] 83 U/L 16-61 [facility] CO2 [Moles/Vol] 27.0 mmol/L 21.0-32.0 [facility] Globulin (S) [Mass/Vol] 3.8 g/dL 2.2-4.2 [facility] Urea nitrogen/Creatinine [Mass ratio] 19.6 mg/mg 10-20 [facility] Laboratory - Hematology and Cell countsOrdered By: [facility] Thomasmili on 04-20-2023 MCH (RBC) [Entitic mass] 33.6 pg 27.0-32.0 [facility] MCHC (RBC) [Mass/Vol] 31.7 g/dL 32-36 [facility] Nucleated RBC/100 WBC (Bld) [Ratio] 1.4 % 0-5 [facility] Platelets (Bld) [#/Vol] 204 10*3/uL 150-450 [facility] No Panel InformationOrdered By: Heath Mitchell on 04-20-2023 Estimated GFR (MDRD) Amer 82 mL/min >60 [facility] Comment on above: GFR Calc Estimated GFR (MDRD) Non-Af Amer 67 mL/min >60 [facility] Comment on above: Non- GFR Calc Platelet mean volume Roderick-Ec ker (Bld) [Entitic vol]Ordered By: Heath Mitchell on 04-20-2023 Platelet mean volume (Bld) [Entitic vol] 9.9 fL 6.2-12.0 [facility] RBC Auto (Bld) [#/Vol]Ordere d By: Heath Mitchell on 04-20-2023 RBC (Bld) [#/Vol] 2.53 10*6/uL 4.6-6.2 [facility] Serum or plasma calcium ender urement (mass/volume)Ordered By: Heath Mitchell on 04-20-2023 Calcium [Mass/Vol] 8.5 mg/dL 8.5-10.1 [facility] Serum or plasma creatinine m easurement (mass/volume)Ordered By: Heath Mitchell on 04-20-2023 Creatinine [Mass/Vol] 1.12 mg/dL 0.70-1.30 [facility] Comment on above: The validity of the calculated GFR & GFRAA in patients over 70 years has not been determined. Clinical correlation is essential. Serum or plasma urea nitroge n measurement (mass/volume)Ordered By: Heath Mitchell on 04-20-2023 Urea nitrogen [Mass/Vol] 22 mg/dL 7-18 [facility] Thin prep Papanicolaou smear with manual screeningOrdered By: Heath Mitchell on 04-20-2023 Thin prep Papanicolaou smear with manual screening 2.5 g/dL 3.2-5.0 [facility] Thin prep Papanicolaou smear with manual screening 84 U/L 15-37 [facility] Thin prep Papanicolaou smear with manual screening 3 5-15 [facility] COVID-19 virus antigen assay Ordered By: Jesse Slade on 04-18-2023 SARS-CoV-2 (COVID-19) Ag IA.rapid Ql (Resp) [facility] SARS-CoV-2 (COVID-19) Ag IA.rapid Ql (Resp) [facility] Absolute lymphocyte countOrd ered By: Jesse Slade on 04-17-2023 Lymphocytes Auto (Unsp spec) [#/Vol] 0.69 10*3/uL 0.83-4.51 [facility] Automated lymphocyte count a s percentage of total leukocytesOrdered By: Jesse Slade on 04-17-2023 Lymphocytes/100 WBC Auto (Unsp spec) 15.3 % 19-41 [facility] Basophil percentageOrdered B y: Jesse Slade on 04-17-2023 Basophils/100 WBC (Bld) 0.2 % 0-1 [facility] Chloride [Moles/Vol] 119 mmol/L 98-107 [facility] Eosinophils/100 WBC (Bld) 0.9 % 0-5 [facility] Glucose [Mass/Vol] 106 mg/dL 74-106 [facility] Comment on above: Fasting Glucose resu lt from 100 to 125 mg/dL suggests IMPAIRED HOMEOSTASIS per A.D.A. criteria. Hemoglobin (Bld) [Mass/Vol] 8.1 g/dL 13.0-16.5 [facility] Monocytes/100 WBC (Bld) 9.8 % 0-10 [facility] Neutrophils (Bld) [#/Vol] 3.2 10*3/uL 2.0-7.7 [facility] Neutrophils/100 WBC (Bld) 71.8 % 47-70 [facility] Potassium [Moles/Vol] 3.9 mmol/L 3.5-5.1 [facility] Sodium [Moles/Vol] 145 mmol/L 136-145 [facility] WBC (Bld) [#/Vol] 4.5 10*3/uL 4.4-11.0 [facility] Determination of erythrocyte mean corpuscular volume (MCV)Ordered By: Jesse Slade on 04-17-2023 MCV (RBC) [Entitic vol] 105.8 fL 80-94 [facility] Erythrocyte distribution wid th ratioOrdered By: Jesse Slade on 04-17-2023 Erythrocyte distribution width (RBC) [Ratio] 14.5 % 11.6-14.6 [facility] Erythrocyte distribution wid th standard deviationOrdered By: Jesse Slade on 04-17-2023 Erythrocyte distribution width (RBC) [Entitic vol] 56.6 fL 35.1-43.9 [facility] Hematocrit Auto (Bld) [Volum e fraction]Ordered By: Jesse Slade on 04-17-2023 Hematocrit (Bld) [Volume fraction] 25.4 % 40-54 [facility] Immature granulocytes/100 WB C Auto (Bld)Ordered By: Jesse Slade on 04-17-2023 Immature granulocytes/100 WBC (Bld) 2.000 % 0.0-0.9 [facility] Comment on above: IG% - Immature Granu locytes (promyelocytes, myelocytes and metamyelocytes) > 1% indicates that a LEFT SHIFT is Present. Laboratory - Chemistry and C hemistry - challengeOrdered By: Jesse Slade on 04-17-2023 CO2 [Moles/Vol] 24.0 mmol/L 21.0-32.0 [facility] Urea nitrogen/Creatinine [Mass ratio] 26.0 mg/mg 10-20 [facility] Laboratory - Hematology and Cell countsOrdered By: Jesse Slade on 04-17-2023 MCH (RBC) [Entitic mass] 33.8 pg 27.0-32.0 [facility] MCHC (RBC) [Mass/Vol] 31.9 g/dL 32-36 [facility] Nucleated RBC/100 WBC (Bld) [Ratio] 0.7 % 0-5 [facility] Platelets (Bld) [#/Vol] 102 10*3/uL 150-450 [facility] No Panel InformationOrdered By: Jesse Slade on 04-17-2023 Estimated Creatinine Clearance Calc 53.79 ml/min [facility] Estimated GFR (MDRD) Amer 73 mL/min >60 [facility] Comment on above: GFR Calc Estimated GFR (MDRD) Non-Af Amer 60 mL/min >60 [facility] Comment on above: Non- GFR Calc Platelet mean volume Roderick-Ec ker (Bld) [Entitic vol]Ordered By: Jesse Slade on 04-17-2023 Platelet mean volume (Bld) [Entitic vol] 10.4 fL 6.2-12.0 [facility] RBC Auto (Bld) [#/Vol]Ordere d By: Jesse Slade on 04-17-2023 RBC (Bld) [#/Vol] 2.40 10*6/uL 4.6-6.2 [facility] Serum or plasma calcium ender urement (mass/volume)Ordered By: Jesse Slade on 04-17-2023 Calcium [Mass/Vol] 8.1 mg/dL 8.5-10.1 [facility] Serum or plasma creatinine m easurement (mass/volume)Ordered By: Jesse Slade on 04-17-2023 Creatinine [Mass/Vol] 1.23 mg/dL 0.70-1.30 [facility] Comment on above: The validity of the calculated GFR & GFRAA in patients over 70 years has not been determined. Clinical correlation is essential. Serum or plasma urea nitroge n measurement (mass/volume)Ordered By: Jesse Slade on 04-17-2023 Urea nitrogen [Mass/Vol] 32 mg/dL 7-18 [facility] Thin prep Papanicolaou smear with manual screeningOrdered By: Jesse Slade on 04-17-2023 Thin prep Papanicolaou smear with manual screening 2 5-15 [facility] Basophil percentageOrdered B y: William Padilla on 04-16-2023 Basophil percentage 25-50 SEEN /hpf 0-5 [facility] Basophil percentageOrdered B y: Tesha Layne on 04-16-2023 Bilirubin [Mass/Vol] 0.50 mg/dL 0.20-1.00 [facility] Comment on above: For patients on eltr ombopag therapy, use of Dimension [place] TBIL is not recommended. Protein [Mass/Vol] 5.4 g/dL 6.4-8.2 [facility] Bilirubin Test strip Ql (U)O rdered By: William Padilla on 04-16-2023 Bilirubin Ql (U) Negative Negative [facility] Ketones Test strip Ql (U)Ord ered By: William Padilla on 04-16-2023 Ketones Ql (U) Negative Negative [facility] Laboratory - Chemistry and C hemistry - challengeOrdered By: Tesha Layne on 04-16-2023 Albumin/Globulin [Mass ratio] 0.6 {ratio} 0.9-2.4 [facility] ALP [Catalytic activity/Vol] 62 U/L 45-117 [facility] ALT [Catalytic activity/Vol] 115 U/L 16-61 [facility] CK [Catalytic activity/Vol] 3011 U/L 39-308 [facility] Globulin (S) [Mass/Vol] 3.3 g/dL 2.2-4.2 [facility] Mucus LM Ql (Urine sed)Order ed By: William Padilla on 04-16-2023 Mucus Ql (Urine sed) 0 SEEN /hpf [facility] Nitrite Test strip Ql (U)Ord ered By: William Padilla on 04-16-2023 Nitrite Ql (U) Negative Negative [facility] No Panel InformationOrdered By: William Padilla on 04-16-2023 Urine RBC 10-25 SEEN /hpf 0-5 [facility] Protein Test strip Ql (U)Ord ered By: William Padilla on 04-16-2023 Protein Ql (U) 30 mg/dl Negative [facility] Squamous epithelial cells de tection in urine sediment by light microscopyOrdered By: William Padilla on 04-16-2023 Epithelial cells.squamous LM Ql (Urine sed) 0 SEEN /hpf 0-5 [facility] Thin prep Papanicolaou smear with manual screeningOrdered By: Tesha Layne on 04-16-2023 Thin prep Papanicolaou smear with manual screening 2.1 g/dL 3.2-5.0 [facility] Thin prep Papanicolaou smear with manual screening 227 U/L 15-37 [facility] Urine blood detectionOrdered By: William Padilla on 04-16-2023 RBC Ql (U) 150 /ul Negative [facility] Urine clarityOrdered By: Giovanna Padilla on 04-16-2023 Clarity (U) Clear Clear [facility] Urine color determinationOrd ered By: William Padilla on 04-16-2023 Color (U) Yellow Yellow [facility] Urine glucose detectionOrder ed By: William Padilla on 04-16-2023 Glucose Ql (U) Normal mg/dl Normal [facility] Urine leukocyte esterase det ection by dipstickOrdered By: William Padilla on 04-16-2023 Leukocyte esterase Test strip Ql (U) 500 /ul Negative [facility] Urine pHOrdered By: William evansus on 04-16-2023 pH (U) 6.0 [pH] 5.0 - 8.0 [facility] Urine sediment bacteria coun t by microscopy (number/high power field)Ordered By: William Padilla on 04-16-2023 Bacteria LM.HPF (Urine sed) [#/Area] 1 /[HPF] None Seen [facility] Urine sediment yeast count b y microscopy (number/high powered field)Ordered By: William Padilla on 04-16-2023 Yeast LM.HPF (Urine sed) [#/Area] 2 /[HPF] None Seen [facility] Urine specific gravity measu rementOrdered By: William Padilla on 04-16-2023 Specific gravity (U) [Rel density] 1.010 1.002-1.030 [facility] Urine urobilinogen measureme ntOrdered By: William Padilla on 04-16-2023 Urobilinogen Ql (U) Normal mg/dl Normal [facility] Blood manual differential co mment interpretation (narrative result)Ordered By: Tesha Layne on 04-14-2023 Manual differential comment Cesar (Bld) [Interp] SCANNED [facility] Activated partial thrombopla stin time (aPTT) in platelet poor plasma by coagulation aOrdered By: Tesha Layne on 04-13-2023 aPTT Coag (PPP) [Time] 105.1 s 24.1-36.2 [facility] Comment on above: CRITICAL VALUE VERIF IED. CALLED TO DARRYN FERREIRA (U)04/13/23 [id number] Tadeo HaRESULTS READ BACK BY SAME. Absolute lymphocyte countOrd ered By: William Padilla on 04-12-2023 Lymphocytes Auto (Unsp spec) [#/Vol] 0.54 10*3/uL 0.83-4.51 [facility] Automated lymphocyte count a s percentage of total leukocytesOrdered By: William Padilla on 04-12-2023 Lymphocytes/100 WBC Auto (Unsp spec) 6.2 % 19-41 [facility] Basophil percentageOrdered B y: William Padilla on 04-12-2023 Lactate [Moles/Vol] 1.1 mmol/L 0.4-2.0 [facility] Basophils/100 WBC (Bld) 0.1 % 0-1 [facility] Bilirubin [Mass/Vol] 0.70 mg/dL 0.20-1.00 [facility] Comment on above: For patients on eltr ombopag therapy, use of Dimension [place] TBIL is not recommended. Chloride [Moles/Vol] 112 mmol/L 98-107 [facility] Eosinophils/100 WBC (Bld) 0.0 % 0-5 [facility] Glucose [Mass/Vol] 93 mg/dL 74-106 [facility] Hemoglobin (Bld) [Mass/Vol] 13.6 g/dL 13.0-16.5 [facility] Lactate [Moles/Vol] 2.3 mmol/L 0.4-2.0 [facility] Comment on above: Critical Result(s) C alled at: 11:50:34 04/12/2023 by: Halie Rey to [facility]. Results read back by same. Monocytes/100 WBC (Bld) 9.4 % 0-10 [facility] Neutrophils (Bld) [#/Vol] 7.4 10*3/uL 2.0-7.7 [facility] Neutrophils/100 WBC (Bld) 84.0 % 47-70 [facility] Potassium [Moles/Vol] 4.0 mmol/L 3.5-5.1 [facility] Protein [Mass/Vol] 7.3 g/dL 6.4-8.2 [facility] Sodium [Moles/Vol] 141 mmol/L 136-145 [facility] WBC (Bld) [#/Vol] 8.8 10*3/uL 4.4-11.0 [facility] Basophil percentageOrdered B y: Tesha Layne on 04-12-2023 Cholesterol [Mass/Vol] 103 mg/dL <200 [facility] Comment on above: <200 mg/dL Desirable 200-240 mg/dL Borderline >240 mg/dL High Risk Triglyceride [Mass/Vol] 100 mg/dL <199 [facility] Comment on above: The drugs N-Acetylcy steine and Metamizole may falsely depress this assay.Serum Triglycerides Reference Interval Normal <150 mg/dL Borderline high 150 - 199 mg/dL High 200 - 499 mg/dL Very High > or = 500 mg/dL Blood manual differential co mment interpretation (narrative result)Ordered By: William Padilla on 04-12-2023 Manual differential comment Cesar (Bld) [Interp] COMMENT [facility] Comment on above: LYMPHOPENIA. Determination of erythrocyte mean corpuscular volume (MCV)Ordered By: William Padilla on 04-12-2023 MCV (RBC) [Entitic vol] 100.7 fL 80-94 [facility] Erythrocyte distribution wid th ratioOrdered By: William Padilla on 04-12-2023 Erythrocyte distribution width (RBC) [Ratio] 14.1 % 11.6-14.6 [facility] Erythrocyte distribution wid th standard deviationOrdered By: William Padilla on 04-12-2023 Erythrocyte distribution width (RBC) [Entitic vol] 51.8 fL 35.1-43.9 [facility] Hematocrit Auto (Bld) [Volum e fraction]Ordered By: William Padilla on 04-12-2023 Hematocrit (Bld) [Volume fraction] 41.1 % 40-54 [facility] High density lipoprotein (HD L) measurementOrdered By: Tesha Layne on 04-12-2023 Cholesterol in HDL (Body fld) [Mass/Vol] 54 mg/dL >40 [facility] Comment on above: The drugs N-Acetylcy steine and Metamizole may falsely depress this assay. Reference Range HDL <40 mg/dL Low HDL Cholesterol HDL >or= 60 mg/dL High HDL Cholesterol Immature granulocytes/100 WB C Auto (Bld)Ordered By: William Padilla on 04-12-2023 Immature granulocytes/100 WBC (Bld) 0.300 % 0.0-0.9 [facility] Comment on above: IG% - Immature Granu locytes (promyelocytes, myelocytes and metamyelocytes) > 1% indicates that a LEFT SHIFT is Present. International normalized rat io (INR) calculationOrdered By: Tesha Layne on 04-12-2023 INR Coag (PPP) [Relative time] 1.2 {INR} [facility] Laboratory - Chemistry and C hemistry - challengeOrdered By: William Padilla on 04-12-2023 Albumin/Globulin [Mass ratio] 0.7 {ratio} 0.9-2.4 [facility] ALP [Catalytic activity/Vol] 85 U/L 45-117 [facility] ALT [Catalytic activity/Vol] 162 U/L 16-61 [facility] CK [Catalytic activity/Vol] 19688 U/L 39-308 [facility] CO2 [Moles/Vol] 18.0 mmol/L 21.0-32.0 [facility] Globulin (S) [Mass/Vol] 4.2 g/dL 2.2-4.2 [facility] Lipase [Catalytic activity/Vol] 42 U/L 13-75 [facility] Comment on above: Please note:LIPASE r evised reference range effective 22. New Lipase methodology. Expected to produce lower values than the previous assay method. NEW Reference Range: 13 - 75 U/L Urea nitrogen/Creatinine [Mass ratio] 21.1 mg/mg 10-20 [facility] Laboratory - CoagulationOrde red By: Tesha Layne on 04-12-2023 PT Coag (PPP) [Time] 15.0 s 11.7-14.9 [facility] Laboratory - Hematology and Cell countsOrdered By: William Padilla on 04-12-2023 MCH (RBC) [Entitic mass] 33.3 pg 27.0-32.0 [facility] MCHC (RBC) [Mass/Vol] 33.1 g/dL 32-36 [facility] Nucleated RBC/100 WBC (Bld) [Ratio] 0 % 0-5 [facility] Platelets (Bld) [#/Vol] 123 10*3/uL 150-450 [facility] Laboratory - Microbiology an d Antimicrobial susceptibilityOrdered By: William Padilla on 04-12-2023 SARS-CoV-2 (COVID-19) RNA RONIT+probe Ql (Unsp spec) Influenzae A [facility] Bacteria identified Cx Nom (Bld) No growth in 5 days. [facility] Bacteria identified Cx Nom (Bld) No growth in 5 days. [facility] Low density lipoprotein (LDL ) cholesterol measurementOrdered By: Tesha Layne on 04-12-2023 Cholesterol in LDL (Body fld) [Moles/Vol] 29 mg/dL 0-130 [facility] No Panel InformationOrdered By: Tesha Layne on 04-12-2023 Troponin I High Sensitivity 2612 pg/mL 3.0-78.0 [facility] Comment on above: Critical Result(s) C alled at: 17:44:43 04/12/2023 by: Rossana ECHAVARRIA. Results read back by same. Please Note: New Test Units and Gender Specific Reference Ranges. For more information see Policy Stat Procedure [place] High Sensitivity Troponin (TNIH) and attachments. No Panel InformationOrdered By: William Padilla on 04-12-2023 Estimated Creatinine Clearance Calc 20.51 ml/min [facility] Estimated GFR (MDRD) Amer 24 mL/min >60 [facility] Comment on above: GFR Calc Estimated GFR (MDRD) Non-Af Amer 20 mL/min >60 [facility] Comment on above: Non- GFR Calc Troponin I High Sensitivity 3604 pg/mL 3.0-78.0 [facility] Comment on above: Critical Result(s) C alled at: 11:50:34 04/12/2023 by: Halie Castro. Results read back by same. Please Note: New Test Units and Gender Specific Reference Ranges. For more information see Policy Stat Procedure [place] High Sensitivity Troponin (TNIH) and attachments. Platelet mean volume Roderick-Ec ker (Bld) [Entitic vol]Ordered By: William Padilla on 04-12-2023 Platelet mean volume (Bld) [Entitic vol] 9.8 fL 6.2-12.0 [facility] RBC Auto (Bld) [#/Vol]Ordere d By: William Padilla on 04-12-2023 RBC (Bld) [#/Vol] 4.08 10*6/uL 4.6-6.2 [facility] Serum or plasma calcium ender urement (mass/volume)Ordered By: William Padilla on 04-12-2023 Calcium [Mass/Vol] 8.7 mg/dL 8.5-10.1 [facility] Serum or plasma creatinine m easurement (mass/volume)Ordered By: William Padilla on 04-12-2023 Creatinine [Mass/Vol] 3.27 mg/dL 0.70-1.30 [facility] Comment on above: The validity of the calculated GFR & GFRAA in patients over 70 years has not been determined. Clinical correlation is essential. Serum or plasma urea nitroge n measurement (mass/volume)Ordered By: William Padilla on 04-12-2023 Urea nitrogen [Mass/Vol] 69 mg/dL 7-18 [facility] Thin prep Papanicolaou smear with manual screeningOrdered By: William Padilla on 04-12-2023 Thin prep Papanicolaou smear with manual screening 3.1 g/dL 3.2-5.0 [facility] Thin prep Papanicolaou smear with manual screening 576 U/L 15-37 [facility] Thin prep Papanicolaou smear with manual screening 11 5-15 [facility] Very low density lipoprotein (VLDL) cholesterol measurementOrdered By: Tesha Layne on 04-12-2023 Cholesterol in VLDL Calc [Moles/Vol] 20 mg/dL 5-40 [facility] Whole blood hemoglobin A1c/t otal hemoglobin ratio (mass fraction)Ordered By: Tesha Layne on 04-12-2023 HbA1c (Bld) [Mass fraction] 5.6 % 3.8-5.6 [facility] Comment on above: Normal < 5.7 % Predi abetic 5.7 - 6.4 % Diabetic >or= 6.5 % Please note range changes. .Auto Diffon 02-28-2023 Basophil, Absolute 0.0 10 3/mcL Normal 0.0-0.2 [facility] ([place]) Comment on above: Performed By: #### T SH, LIPID, URIC, ANEU, CBC, PSA, ADIFF, FT4, GFR, CMP ####[address] [place], [place] [address] Basophils/100 WBC (Bld) 0.4 % Normal 0.0-2.5 A [facility] ([place]) Comment on above: Performed By: #### T SH, LIPID, URIC, ANEU, CBC, PSA, ADIFF, FT4, GFR, CMP ####[address] [place], [place] [address] Eosinophil, Absolute 0.3 10 3/mcL Normal 0.0-0.4 [facility] ([place]) Comment on above: Performed By: #### T SH, LIPID, URIC, ANEU, CBC, PSA, ADIFF, FT4, GFR, CMP ####[address] [place], [place] [address] Eosinophils/100 WBC (Bld) 5.3 % Normal 0.0-7.0 [facility] ([place]) Comment on above: Performed By: #### T SH, LIPID, URIC, ANEU, CBC, PSA, ADIFF, FT4, GFR, CMP ####[address] [place], [place] [address] Lymphocyte, Absolute 1.1 10 3/mcL Normal 0.8-3.9 [facility] ([place]) Comment on above: Performed By: #### T SH, LIPID, URIC, ANEU, CBC, PSA, ADIFF, FT4, GFR, CMP ####[address] [place], [place] [address] Lymphocytes/100 WBC (Bld) 17.3 % Normal 10.0-50.0 [facility] ([place]) Comment on above: Performed By: #### T SH, LIPID, URIC, ANEU, CBC, PSA, ADIFF, FT4, GFR, CMP ####[address] [place], [place] [address] Monocyte, Absolute 0.7 10 3/mcL Normal 0.2-1.0 [facility] ([place]) Comment on above: Performed By: #### T SH, LIPID, URIC, ANEU, CBC, PSA, ADIFF, FT4, GFR, CMP ####[address] [place], [place] [address] Monocytes/100 WBC (Bld) 11.3 % Normal 1.7-13.0 A [facility] ([place]) Comment on above: Performed By: #### T SH, LIPID, URIC, ANEU, CBC, PSA, ADIFF, FT4, GFR, CMP ####[address] [place], [place] [address] Neutrophils/100 WBC (Bld) 65.7 % Normal 37.0-80.0 [facility] ([place]) Comment on above: Performed By: #### T SH, LIPID, URIC, ANEU, CBC, PSA, ADIFF, FT4, GFR, CMP ####[address] [place], [place] [address] .GFRon 02-28-2023 GFR Non- 46 ml/min/1.73sqm Normal [facility] ([place]) Comment on above: Result Comment: GFR Population [...] CBC, PSA, ADIFF, FT4, GFR, CMP ####[address] [place], [place] [address] GFR 56 ml/min/1.73sqm Normal [facility] ([place]) Comment on above: Result Comment: GFR Population [...] PSA, ADIFF, FT4, GFR, CMP ####[address] [place], [place] [address] .NEUABSon 02-28-2023 Neutrophil, Absolute 4.0 10 3/mcL Normal 2.9-6.2 [facility] ([place]) Comment on above: Performed By: #### T SH, LIPID, URIC, ANEU, CBC, PSA, ADIFF, FT4, GFR, CMP ####[address] [place], [place] [address] CBCon 02-28-2023 Erythrocyte distribution width (RBC) [Ratio] 14.7 % High 11.5-14.5 [facility] ([place]) Comment on above: Performed By: #### T SH, LIPID, URIC, ANEU, CBC, PSA, ADIFF, FT4, GFR, CMP ####[address] [place], [place] [address] Hematocrit (Bld) [Volume fraction] 38.5 % Low 42.0-52.0 [facility] ([place]) Comment on above: Performed By: #### T SH, LIPID, URIC, ANEU, CBC, PSA, ADIFF, FT4, GFR, CMP ####[address] [place], [place] [address] Hgb 13.0 G/dL Low 14.0-18.0 [facility] ([place] Comment on above: Performed By: #### T SH, LIPID, URIC, ANEU, CBC, PSA, ADIFF, FT4, GFR, CMP ####[address] [place], [place] [address] MCH (RBC) [Entitic mass] 34.8 pg High 27.0-31.2 [facility] ([place]) Comment on above: Performed By: #### T SH, LIPID, URIC, ANEU, CBC, PSA, ADIFF, FT4, GFR, CMP ####[address] [place], [place] [address] MCHC 33.8 G/dL Normal 31.8-35.4 [facility] ([place]) Comment on above: Performed By: #### T SH, LIPID, URIC, ANEU, CBC, PSA, ADIFF, FT4, GFR, CMP ####[address] [place], [place] [address] MCV (RBC) [Entitic vol] 103.0 fL High 80.0-94.0 A [facility] ([place]) Comment on above: Performed By: #### T SH, LIPID, URIC, ANEU, CBC, PSA, ADIFF, FT4, GFR, CMP ####[address] [place], [place] [address] Platelet 161 10 3/mcL Normal 130-400 [facility] ([place]) Comment on above: Performed By: #### T SH, LIPID, URIC, ANEU, CBC, PSA, ADIFF, FT4, GFR, CMP ####[address] [place], [place] [address] Platelet mean volume (Bld) [Entitic vol] 7.6 fL Normal 7.4-10.4 [facility] ([place]) Comment on above: Performed By: #### T SH, LIPID, URIC, ANEU, CBC, PSA, ADIFF, FT4, GFR, CMP ####[address] [place], [place] [address] RBC 3.73 10 6/mcL Low 4.04-6.13 [facility] ([place]) Comment on above: Performed By: #### T SH, LIPID, URIC, ANEU, CBC, PSA, ADIFF, FT4, GFR, CMP ####[address] [place], [place] [address] WBC 6.1 10 3/mcL Normal 4.6-10.8 [facility] ([place] Comment on above: Performed By: #### T SH, LIPID, URIC, ANEU, CBC, PSA, ADIFF, FT4, GFR, CMP ####[address] [place], [place] [address] CMPon 02-28-2023 ALT [Catalytic activity/Vol] 24 U/L Normal 16-63 [facility] ([place]) Comment on above: Performed By: #### T SH, LIPID, URIC, ANEU, CBC, PSA, ADIFF, FT4, GFR, CMP ####[address] [place], [place] [address] Albumin Level 3.4 G/dL Normal 3.4-4.8 [facility] ([place] Comment on above: Performed By: #### T SH, LIPID, URIC, ANEU, CBC, PSA, ADIFF, FT4, GFR, CMP ####[address] [place], [place] [address] Albumin/Globulin [Mass ratio] 0.9 {ratio} Low 1.1-2.5 [facility] ([place]) Comment on above: Performed By: #### T SH, LIPID, URIC, ANEU, CBC, PSA, ADIFF, FT4, GFR, CMP ####[address] [place], [place] [address] ALP [Catalytic activity/Vol] 115 U/L Normal 40-135 [facility] ([place]) Comment on above: Performed By: #### T SH, LIPID, URIC, ANEU, CBC, PSA, ADIFF, FT4, GFR, CMP ####[address] [place], [place] [address] AST [Catalytic activity/Vol] 18 U/L Normal 10-40 [facility] ([place] Comment on above: Performed By: #### T SH, LIPID, URIC, ANEU, CBC, PSA, ADIFF, FT4, GFR, CMP ####[address] [place], [place] [address] Bili Total 0.6 mg/dL Normal 0.2-1.0 [facility] ([place]) Comment on above: Result Comment: Use of this assay is not recommended for patients undergoing treatment with eltrombopag due to the potential for falsely elevated results. Performed By: #### T SH, LIPID, URIC, ANEU, CBC, PSA, ADIFF, FT4, GFR, CMP ####[address] [place], [place] [address] BUN/Creatinine Ratio 22 ratio Normal 7-27 [facility] ([place]) Comment on above: Performed By: #### T SH, LIPID, URIC, ANEU, CBC, PSA, ADIFF, FT4, GFR, CMP ####[address] [place], [place] [address] Calcium [Mass/Vol] 9.2 mg/dL Normal 8.4-10.2 [facility] ([place]) Comment on above: Performed By: #### T SH, LIPID, URIC, ANEU, CBC, PSA, ADIFF, FT4, GFR, CMP ####[address] [place], [place] [address] Chloride [Moles/Vol] 108 mmol/L High 98-107 [facility] ([place]) Comment on above: Performed By: #### T SH, LIPID, URIC, ANEU, CBC, PSA, ADIFF, FT4, GFR, CMP ####[address] [place], [place] [address] CO2 [Moles/Vol] 25 mmol/L Normal 23-31 [facility] ([place] Comment on above: Performed By: #### T SH, LIPID, URIC, ANEU, CBC, PSA, ADIFF, FT4, GFR, CMP ####[address] [place], [place] [address] Creatinine [Mass/Vol] 1.48 mg/dL High 0.70-1.30 [facility] ([place]) Comment on above: Performed By: #### T SH, LIPID, URIC, ANEU, CBC, PSA, ADIFF, FT4, GFR, CMP ####[address] [place], [place] [address] Electrolyte Balance 10.0 mEq/L Normal 4.0-15.0 [facility] ([place]) Comment on above: Performed By: #### T SH, LIPID, URIC, ANEU, CBC, PSA, ADIFF, FT4, GFR, CMP ####[address] [place], [place] [address] Globulin 3.6 G/dL Normal [facility] ([place] Comment on above: Performed By: #### T SH, LIPID, URIC, ANEU, CBC, PSA, ADIFF, FT4, GFR, CMP ####[address] [place], [place] [address] Glucose [Mass/Vol] 95 mg/dL Normal 83-110 [facility] ([place]) Comment on above: Performed By: #### T SH, LIPID, URIC, ANEU, CBC, PSA, ADIFF, FT4, GFR, CMP ####[address] [place], [place] [address] Potassium [Moles/Vol] 4.3 mmol/L Normal 3.5-5.1 [facility] ([place]) Comment on above: Performed By: #### T SH, LIPID, URIC, ANEU, CBC, PSA, ADIFF, FT4, GFR, CMP ####[address] [place], [place] [address] Sodium [Moles/Vol] 143 mmol/L Normal 136-145 [facility] ([place]) Comment on above: Performed By: #### T SH, LIPID, URIC, ANEU, CBC, PSA, ADIFF, FT4, GFR, CMP ####[address] [place], [place] [address] Total Protein 7.0 G/dL Normal 6.4-8.2 [facility] ([place] Comment on above: Performed By: #### T SH, LIPID, URIC, ANEU, CBC, PSA, ADIFF, FT4, GFR, CMP ####[address] [place], [place] [address] Urea nitrogen [Mass/Vol] 33 mg/dL High 7-18 [facility] ([place] Comment on above: Performed By: #### T SH, LIPID, URIC, ANEU, CBC, PSA, ADIFF, FT4, GFR, CMP ####[address] [place], [place] [address] FT4on 02-28-2023 Free T4 [Mass/Vol] 0.74 ng/dL Low 0.76-1.46 [facility] ([place]) Comment on above: Performed By: #### T SH, LIPID, URIC, ANEU, CBC, PSA, ADIFF, FT4, GFR, CMP ####[address] [place], [place] [address] LABORATORYOrdered By: SYSTEM SYSTEM on 02-28-2023 Albumin [...] 02-28-2023 Cholesterol [Mass/Vol] 126 mg/dL Normal 0-200 [facility] ([place]) Comment on above: Result Comment: Chol esterol Reference Interval: Less than 200 Desirable 200-239 Borderline high risk 240 and above High risk Performed By: #### T SH, LIPID, URIC, ANEU, CBC, PSA, ADIFF, FT4, GFR, CMP ####[address] [place], [place] [address] Cholesterol in HDL [Mass/Vol] 52 mg/dL Normal 40-60 [facility] ([place]) Comment on above: Performed By: #### T SH, LIPID, URIC, ANEU, CBC, PSA, ADIFF, FT4, GFR, CMP ####[address] [place], [place] [address] Cholesterol in LDL [Mass/Vol] 53 mg/dL Normal 0-130 [facility] ([place]) Comment on above: Performed By: #### T SH, LIPID, URIC, ANEU, CBC, PSA, ADIFF, FT4, GFR, CMP ####[address] [place], [place] [address] Triglyceride [Mass/Vol] 105 mg/dL Normal 0-150 A [facility] ([place]) Comment on above: Result Comment: Trig lyceride Reference Interval: Less than 150 Normal 150-199 Borderline high risk 200-499 High risk 500 or higher Very high risk Performed By: #### T SH, LIPID, URIC, ANEU, CBC, PSA, ADIFF, FT4, GFR, CMP ####[address] [place], [place] [address] PSAon 02-28-2023 Prostate Specific Antigen 0.95 ng/mL Normal 0.00-4.00 [facility] ([place]) Comment on above: Performed By: #### T SH, LIPID, URIC, ANEU, CBC, PSA, ADIFF, FT4, GFR, CMP ####[address] [place], [place] [address] TSHon 02-28-2023 TSH Qn 1.72 m[IU]/L Normal 0.36-3.74 [facility] ([place]) Comment on above: Performed By: #### T SH, LIPID, URIC, ANEU, CBC, PSA, ADIFF, FT4, GFR, CMP ####[address] [place], [place] [address] URICon 02-28-2023 Uric Acid Lvl 5.8 mg/dL Normal 3.5-7.2 [facility] ([place]) Comment on above: Performed By: #### T SH, LIPID, URIC, ANEU, CBC, PSA, ADIFF, FT4, GFR, CMP ####[address] [place], [place] [address] MRI BRAIN WITHOUT IV CONTRAS Ton 01-12-2022 MRI BRAIN WITHOUT IV CONTRAST EXAM: MRI BRAIN WITHOUT IV CONTRAST HISTORY: Mild cognitive impairment of uncertain or unknown etiology: COMPARISON: None. TECHNIQUE: Multiplanar multisequence MR imaging of the brain was performed without intravenous contrast. FINDINGS: Calvarium/skull base: No focal marrow replacing lesion suggestive of neoplasm. Orbits: Bilateral wiyot ocular lens replacements. Paranasal sinuses: Subtotal opacification [...] memory loss; nki; no prev sx Normal TRA System VAS ANKLE BRACHIAL INDEXon 0 12-16-2021 [...] indexes bilaterally Normal digital index bilaterally Normal [facility] SARS-COV-2, TMAon 12-07-2021 SARS-CoV-2 (COVID-19) RNA RONIT+probe Ql (Unsp spec) Positive Abnormal Negative [employer] Comment on above: Result Comment: Posi tive results are indicative of the presence of SARS-CoV-2 RNA; clinical correlation with patient history and other diagnostic information is necessary to determine patient infection status. Positive results do not rule out bacterial infection or co-infection with other viruses. The agent detected may not be the definite cause of disease. The Aptima SARS-CoV-2 assay on the [employer] system is a nucleic acid amplification test(NAAT)intended for use by qualified clinical laboratory personnel specifically instructed and trained in the operation of the [employer] system and in vitro diagnostic procedures. The Aptima SARS-CoV-2 assay is only for use under the Food and Drug Administration's Emergency Use Authorization. Performed By: #### P COVI #### [place] [address] SARS-COV-2, TMAon 10-02-2021 SARS-CoV-2 (COVID-19) RNA RONIT+probe Ql (Unsp spec) Negative Normal Negative [facility] Comment on above: Result Comment: Nega tive results do not preclude SARS-CoV-2 infection and should not be used as the sole basis for patient management decisions. Negative results must be combined with clinical observations, patient history, and epidemiological information. The Aptima SARS-CoV-2 assay on the [employer] system is a nucleic acid amplification test(NAAT)intended for use by qualified clinical laboratory personnel specifically instructed and trained in the operation of the [employer] system and in vitro diagnostic procedures. The Aptima SARS-CoV-2 assay is only for use under the Food and Drug Administration's Emergency Use Authorization. Performed By: #### P COVI #### [place] [address] SARS-COV-2, QPCRon SARS-CoV-2 (COVID-19) RNA RONIT+probe Ql (Unsp spec) Detected Abnormal Not Detected [facility] Comment on above: Result Comment: Resu lts [...] and epidemiological information. Performed By: #### [id number] #### [place] [address] PSA TOTAL DIAGNOSTICon 03-23 PSA Total Diag 0.55 ng/mL 0 - 4 ng/mL [employer] Comment on above: PSA testing performe d using [employer] methodology. XR Abdomen 1 Viewon 03-23-19 1. Given differences in technique, there is unchanged multifocal bilateral nephrolithiasis, as described. 2. Otherwise, no significant change. . [employer] EXAMINATION: ONE SUPINE XRAY VIEW(S) OF THE [...] other clinically-signific ant changes are noted. . [employer] Rogers, Rad Results In - 03/23/2020 11:35 [...] described. 2. Otherwise, no significant change. . [facility] Uric acidon 11-03-2019 Urate [Mass/Vol] 5.3 mg/dL 3.7 - 8.2 mg/dL [facility] CBC with Differentialon Absolute [place] 0.6 [facility] Basophils (Bld) [#/Vol] 0.0 10*3/uL [facility] Basophils/100 WBC (Bld) 0.2 % [facility] Eosinophils (Bld) [#/Vol] 0.2 10*3/uL [facility] Eosinophils/100 WBC (Bld) 2.9 % [facility] Erythrocyte distribution width (RBC) [Ratio] 14.5 % 11.5 - 14.5 % [facility] Hematocrit (Bld) [Volume fraction] 43.0 % 37.7 - 51.1 % [facility] Hemoglobin (Bld) [Mass/Vol] 14.4 g/dL 12.8 - 17.7 g/dL [facility] Interpretation and review of laboratory results Abnormal [facility] Lymphocytes (Bld) [#/Vol] 1.0 10*3/uL Low [facility] Lymphocytes/100 WBC (Bld) 19.3 % [facility] MCH (RBC) [Entitic mass] 33.4 pg 27 - 34.2 p g [facility] MCHC (RBC) [Mass/Vol] 33.5 g/dL 31.4 - 36.2 g/dl [facility] MCV (RBC) [Entitic vol] 99.8 fL High 80.6 - 99 fL [facility] Monocytes/100 WBC (Bld) 11.3 % [facility] Neutrophils (Bld) [#/Vol] 3.4 10*3/uL [facility] Neutrophils/100 WBC (Bld) 66.3 % [facility] Platelets (Bld) [#/Vol] 152.0 10*3/uL [facility] RBC (Bld) [#/Vol] 4.31 10*6/uL [facility] WBC LM Ql (Sput) 5.1 [facility] Comprehensive metabolic pane l aka Metaboon 08-25-2019 Albumin [Mass/Vol] 3.8 g/dL 3.5 - 5 g/dL [facility] Alk Phos 76 U/L 24 - 126 U/L [facility] ALT [Catalytic activity/Vol] 15 U/L 4 - 50 U/L [facility] AST [Catalytic activity/Vol] 21 U/L 3 - 55 U/L [facility] Bilirubin [Mass/Vol] 0.9 mg/dL 0.2 - 1 .6 mg/dL [facility] Calcium [Mass/Vol] 8.9 mg/dL 8.4 - 10. 4 mg/dL [facility] Chloride [Moles/Vol] 107 mmol/L 96 - 10 9 mmol/L [facility] CO2 [Moles/Vol] 26 mmol/L 22 - 30 mmol/L [facility] Comprehensive metabolic 2000 panel 1.03 mg/dL 0.66 - 1.25 mg/dL [facility] Glucose [Mass/Vol] 93 mg/dL 65 - 100 mg/dL [facility] Potassium [Moles/Vol] 4.4 mmol/L 3.6 - 5.1 mmol/L [facility] Protein [Mass/Vol] 6.9 g/dL 6.3 - 8.2 g/dL [facility] Sodium [Moles/Vol] 139 mmol/L 135 - 147 mmol/L [facility] Urea nitrogen [Mass/Vol] 25 mg/dL 8 - 26 mg/d L [facility] GLOMERULAR FILTRATION RATEon 08-25-2019 GFR/1.73 sq M.predicted MDRD (S/P/Bld) [Vol rate/Area] mL/min/{1.73_m2} [facility] Comment on above: To estimate the GFR [...] mg/dL 0 - 2 00 mg/dL [facility] [employer] [facility] Comment on above: CHOLESTEROL REFERENC E RANGE Desirable <200 mg/dL Borderline 200-239 mg/dL High >240 mg/dL . Cholesterol in HDL [Mass/Vol] 44.9 mg/dL 40 - 59.9 mg/dL [facility] [employer] [facility] Comment on above: Interpretive data fo r HDL Cholesterol states: HDL <40 mg/dL is low and constitutes a coronary disease risk factor. HDL >60 mg/dL is a negative risk factor for coronary heart disease. . Cholesterol in LDL [Mass/Vol] 59 mg/dL 0 - 100 mg/dL [facility] [employer] [facility] Comment on above: LDL REFERENCE RANGE Optimal <100 mg/dl Near Optimal 100-129 mg/dL Borderline High 130-159 mg/dL High 160-189 mg/dL Very High >=190 mg/dL . Cholesterol in VLDL [Mass/Vol] 12 mg/dL <42 [facility] [employer] [facility] Triglyceride [Mass/Vol] 58 mg/dL 0 - 150 mg/dL [facility] Comment on above: TRIGLYCERIDE REFEREN CE RANGE Normal <150 mg/dL Borderline High 150-199 mg/dL High 200-499 mg/dL Very High >=500 mg/dL . TSHon 08-25-2019 TSH Qn 1.790 m[IU]/L [facility] [employer] [facility] PSA Total [employer]icon 08-19 PSA Total Diag 0.69 ng/mL 0 - 4 ng/mL [facility] Comment on above: PSA testing performe d using [employer] methodology. GLOMERULAR FILTRATION RATEon 03-21-2019 GFR/1.73 sq M.predicted MDRD (S/P/Bld) [Vol rate/Area] mL/min/{1.73_m2} [employer] Comment on above: To estimate the GFR [...] panel 1.05 mg/dL 0.66 - 1.25 mg/dL [employer] PSA Total Diagnosticon 02-25 PSA Total Diag 1.05 ng/mL 0 - 4 ng/mL [employer] Comment on above: PSA testing performe d using [employer] methodology. XR Abdomen 1 Viewon 02-26-20 19 Stable bilateral nephrolithiasis. [employer] EXAMINATION: ONE SUPINE XRAY VIEW(S) OF THE ABDOMEN 02/25/2019 10:08 am COMPARISON: February 06, 2018 HISTORY: Calculus of kidney:Calculus in bladder: Diagnosis: Kidney stone N20.0 (ICD-10-CM) FINDINGS: Bowel gas pattern nonobstructed. Similar bilateral nephrolithiasis unchanged from previous. No definite ureteral stones. Osseous structures grossly intact. [employer] Rogers, Rad Results In - 02/25/2019 12:00 PM EST EXAMINATION: ONE SUPINE XRAY VIEW(S) OF THE ABDOMEN 02/25/2019 10:08 am COMPARISON: February 06, 2018 HISTORY: Calculus of kidney:Calculus in bladder: Diagnosis: Kidney stone N20.0 (ICD-10-CM) FINDINGS: Bowel gas pattern nonobstructed. Similar bilateral nephrolithiasis unchanged from previous. No definite ureteral stones. Osseous structures grossly intact. IMPRESSION: Stable bilateral nephrolithiasis. [employer] Vital Signs Date Time Vital Sign Value Performing Clinician Facility 09-18-2024 13:41-0400 Body height 172.[address] Angela Mera MD Work Phone: [facility] 09-18-2024 13:41-0400 Body mass index (BMI) [Ratio] 29.5 kg/m2 Dr. Angela Mera MD Work Phone: [facility] 09-18-2024 13:41-0400 Body weight 87.[address] Angela Mera MD Work Phone: [facility] 09-18-2024 13:41-0400 Diastolic blood pressure 66 mm[Hg] Dr. Angela Mera MD Work Phone: [facility] 09-18-2024 13:41-0400 Heart rate 61 /min Dr. Angela Mera MD Work Phone: [facility] 09-18-2024 13:41-0400 Respiratory rate 18 /min Dr. Angela Mera MD Work Phone: [facility] 09-18-2024 13:41-0400 SaO2% (BldA) [Mass fraction] 94 % Dr. Angela Mera MD Work Phone: [facility] 09-18-2024 13:41-0400 Systolic blood pressure 105 mm[Hg] Dr. Angela Mera MD Work Phone: [facility] 07-23-2023 08:33-0400 Body height 172.[address] Angela Mera Work Phone: [facility] 07-23-2023 08:33-0400 Body mass index (BMI) [Ratio] 31.9 kg/m2 Dr. Angela Mera Work Phone: [facility] 07-23-2023 08:33-0400 Body weight 95.[address] Angela Mera Work Phone: [facility] 07-23-2023 08:33-0400 Diastolic blood pressure 71 mm[Hg] Dr. Angela Mera Work Phone: [facility] 07-23-2023 08:33-0400 Heart rate 60 /min Dr. Angela Mera Work Phone: [facility] 07-23-2023 08:33-0400 Respiratory rate 20 /min Dr. Angela Mera Work Phone: [facility] 07-23-2023 08:33-0400 SaO2% (BldA) [Mass fraction] 96 % Dr. Angela Mera Work Phone: [facility] 07-23-2023 08:33-0400 Systolic blood pressure 121 mm[Hg] Dr. Angela Mera Work Phone: [facility] 05-22-2023 11:14-0500 Body mass index (BMI) [Ratio] 30.4 kg/m2 Dr. Angela Mera Work Phone: [facility] 05-22-2023 11:14-0500 Body weight 90.[address] Angela Mera Work Phone: [facility] 05-22-2023 11:14-0500 Diastolic blood pressure 54 mm[Hg] Dr. Angela Mera Work Phone: [facility] 05-22-2023 11:14-0500 Heart rate 58 /min Dr. Angela Mera Work Phone: [facility] 05-22-2023 11:14-0500 Respiratory rate 18 /min Dr. Angela Mera Work Phone: [facility] 05-22-2023 11:14-0500 Systolic blood pressure 96 mm[Hg] Dr. Angela Mera Work Phone: [facility] 04-18-2023 16:07-0500 Body temperature 97.9 [degF] Dr. Angela Mera Work Phone: [facility] 04-18-2023 16:07-0500 Diastolic blood pressure 71 mm[Hg] Dr. Angela Mera Work Phone: [facility] 04-18-2023 16:07-0500 Heart rate 65 /min Dr. Angela Mera Work Phone: [facility] 04-18-2023 16:07-0500 Respiratory rate 17 /min Dr. Angela Mera Work Phone: [facility] 04-18-2023 16:07-0500 SaO2% (BldA) [Mass fraction] 95 % Dr. Angela Mera Work Phone: [facility] 04-18-2023 16:07-0500 Systolic blood pressure 158 mm[Hg] Dr. Angela Mera Work Phone: [facility] 04-16-2023 10:57-0500 Body height 172.[address] Angela Mera Work Phone: [facility] 04-16-2023 10:57-0500 Body weight 89.[address] Angela Mera Work Phone: [facility] 04-16-2023 09:12-0500 Inhaled oxygen flow rate 2 L/min Dr. Angela Mera Work Phone: [facility] 04-12-2023 14:07-0500 Body mass index (BMI) [Ratio] 29.9 kg/m2 Dr. Angela Mera Work Phone: [facility] 04-12-2023 13:30-0500 Diastolic blood pressure 57 mm[Hg] [facility] 04-12-2023 13:30-0500 Heart rate 70 /min [facility] 04-12-2023 13:30-0500 Inhaled oxygen flow rate 2 L/min [facility] 04-12-2023 13:30-0500 Respiratory rate 25 /min [facility] 04-12-2023 13:30-0500 SaO2% (BldA) [Mass fraction] 93 % [facility] 04-12-2023 13:30-0500 Systolic blood pressure 97 mm[Hg] [facility] 04-12-2023 10:35-0500 Body height 172.72 cm [facility] 04-12-2023 10:35-0500 Body mass index (BMI) [Ratio] 30.9 kg/m2 [facility] 04-12-2023 10:35-0500 Body temperature 99 [degF] [facility] 04-12-2023 10:35-0500 Body weight 92.1 kg [facility] 04-19-2021 13:32-0500 Body height 172.7 cm Rosa Khan MD Work Phone: [facility] 04-19-2021 13:32-0500 Body mass index (BMI) [Ratio] 32.2 kg/m2 Rosa Khan MD Work Phone: [facility] 04-19-2021 13:32-0500 Body weight 96.07 kg Rosa Khan MD Work Phone: [facility] 04-19-2021 13:32-0500 Diastolic blood pressure 72 mm[Hg] Rosa Khan MD Work Phone: [facility] 04-19-2021 13:32-0500 Heart rate 60 /min Rosa Khan MD Work Phone: [facility] 04-19-2021 13:32-0500 Respiratory rate 16 /min Rosa Khan MD Work Phone: [facility] 04-19-2021 13:32-0500 Systolic blood pressure 152 mm[Hg] Rosa Khan MD Work Phone: [facility] 02-19-2019 11:01-0500 BP Diastolic 62 mm[Hg] [facility]-19[facility]2019 11:01-0500 BP Systolic 125 mm[Hg] [facility] 02-19-2019 11:01-0500 Pulse (Heart Rate) 46 /min [facility] 02-19-2019 11:01-0500 Pulse Oximetry 93 % [facility] 02-19-2019 11:01-0500 Respiratory Rate 19 /min [facility] 02-19-2019 10:40-0500 Body Temperature 97.39 [degF] [facility] 02-19-2019 09:26-0500 BMI (Body Mass Index) 28.02 kg/m2 [facility] 02-19-2019 09:26-0500 Body weight 88.56 kg Ben [facility] System 02-19-2019 09:26-0500 Height 177.8 cm [facility] System Encounters Encounter Date Encounter Type Care Provider Facility Start: 09-22-2024 End: 09-22-[address] Angela Mera MD Work Phone: -Laboratory Start: 09-22-2024 End: 09-22-[address] Jack Fuller MD -Laboratory Work Phone: Start: 09-22-2024 End: 09-22-2024 ambulatory Jack Fuller Facility:[facility] Start: 09-18-2024 End: 09-18-[address] Jack Fuller MD -[facility] Work Phone: Start: 09-18-2024 End: 09-18-[address] Angela Mera MD Work Phone: [facility] Start: 08-26-2024 End: 08-26-2024 ambulatory ANGELA MERA MD Facility:[facility] Start: 08-26-2024 End: 08-26-2024 Patient encounter procedure ANGELA MERA MD [facility] Start: 08-18-2024 End: 08-22-2024 ambulatory ANGELA MERA MD Facility:[facility] Start: 08-18-2024 End: 08-22-2024 Outreach Lab JANET [employer] POLISH[employer]SOFTWARE APPLICATIONS ARCHITECT [facility] Start: 08-18-2024 End: 08-22-2024 ambulatory ANGELA MERA MD Facility:[facility] Start: 08-18-2024 End: 08-22-2024 Outreach Lab JANET [employer] POLISHER-SOFTWARE APPLICATIONS ARCHITECT [facility] Start: 08-06-2024 End: 08-06-2024 ambulatory ANGELA MERA MD Facility:[facility] Start: 08-06-2024 End: 08-06-2024 Patient encounter procedure ANGELA MERA MD [facility] Start: 04-14-2024 End: 04-14-2024 ambulatory ANGELA MERA MD Facility:[facility] Start: 04-14-2024 End: 04-14-2024 Patient encounter procedure ANGELA MERA MD [facility] Start: 12-12-2023 End: 12-12-2023 ambulatory Angela Mera Facility:[facility] Start: 11-29-2023 End: 11-29-2023 ambulatory ANGELA MERA MD Facility:[facility] Start: 11-29-2023 End: 11-29-2023 Patient encounter procedure ANGELA MERA MD [facility] Start: 11-28-2023 End: 11-28-2023 ambulatory Angela Mera Facility:[facility] Start: 10-05-2023 End: 10-09-2023 ambulatory ANGELA MERA MD Facility:[facility] Start: 10-05-2023 End: 10-09-2023 Outreach Lab ANGELA MERA MD [facility] Start: 07-23-2023 End: 07-23-[address] Angela Mera Work Phone: [facility] Work Phone: Start: 07-23-2023 End: 07-23-[address] Angela Mera Work Phone: [facility] Work Phone: Start: 07-04-2023 End: 07-08-2023 ambulatory ANGELA MERA MD Facility:[facility] Start: 07-04-2023 End: 07-08-2023 Outreach Lab ANGELA MERA MD [facility] Start: 06-22-2023 End: 06-22-2023 ambulatory ANGELA MERA MD Facility:[facility] Start: 06-21-2023 End: 06-21-2023 ambulatory ANGELA MERA MD Facility:[facility] Start: 06-21-2023 End: 06-21-2023 Patient encounter procedure ANGELA MERA MD [facility] Start: 05-22-2023 End: 05-22-[address] Angela Mera Work Phone: [facility] Work Phone: Start: 05-18-2023 End: 05-18-2023 ambulatory ANGELA MERA MD Facility:[facility] Start: 05-18-2023 End: 05-18-2023 Patient encounter procedure ANGELA MERA MD [facility] Start: 05-03-[address] Angela Mera Work Phone: [facility] Start: 04-26-[address] Angela Mera Work Phone: [facility] Start: 04-24-2023 End: 04-24-[address] Angela Mera Work Phone: [facility] Work Phone: Start: 04-20-[address] Angela Mera Work Phone: [facility] Start: 04-19-2023 End: 04-19-[address] Angela Mera Work Phone: [facility] Work Phone: Start: 04-18-2023 Non-patient / Non-visit Dr. Chen Work Phone: [facility] Work Phone: Start: 04-17-2023 Non-patient / Non-visit Dr. Chen Work Phone: [facility] Work Phone: Start: 04-16-2023 Non-patient / Non-visit Dr. Chen Work Phone: [facility] Work Phone: Start: 04-15-2023 Non-patient / Non-visit Dr. Chen Work Phone: [facility] Work Phone: Start: 04-15-2023 Non-patient / Non-visit Dr. Chen Work Phone: [facility] Start: 04-14-2023 Non-patient / Non-visit Dr. Chen Work Phone: [facility] Work Phone: Start: 04-13-2023 Non-patient / Non-visit Dr. Chen Work Phone: [facility] Work Phone: Start: 04-13-2023 Non-patient / Non-visit Dr. Chen Work Phone: [facility] Start: 04-12-2023 Non-patient / Non-visit Dr. Chen Work Phone: [facility] Start: 04-12-2023 End: 04-18-2023 Evaluation and management of inpatient [facility] Work Phone: Start: 02-28-2023 End: 03-04-2023 ambulatory ANGELA MERA MD Facility:B Start: 02-28-2023 End: 03-04-2023 Outreach Lab ANGEAL MERA MD [facility] Start: 01-12-2022 End: 01-13-2022 ambulatory Count includes the [facility] Start: 01-12-2022 End: 01-12-2022 Subsequent hospital visit by physician Unlisted Provider [facility] Comment on above: Mild cognitive impai rment of uncertain or unknown etiology Start: 12-19-2021 End: 12-19-2021 ambulatory [facility] Start: 12-15-2021 End: 12-16-2021 ambulatory [facility] Start: 12-15-2021 End: 12-15-2021 Subsequent hospital visit by physician tal [facility] Comment on above: Non-pressure chronic ulcer of other part of right lower leg with fat layer exposed; PAD (peripheral artery disease) Start: 12-06-2021 End: 12-06-2021 ambulatory Count includes the [facility] Start: 12-05-2021 End: 12-05-2021 Subsequent hospital visit by physician Darin Quijano DO Work Phone: [facility] Start: 12-05-2021 End: 12-05-2021 ambulatory Count includes the [facility] Start: 11-23-2021 End: 11-23-2021 ambulatory [facility] Start: 09-30-2021 End: 10-01-2021 ambulatory [facility] Start: 09-30-2021 End: 09-30-2021 Subsequent hospital visit by physician Darin Quijano DO Work Phone: [facility] Start: 09-30-2021 End: 09-30-2021 ambulatory [facility] Start: 09-30-2021 Encounter for other specified special examinations YONY RUFINA [facility] Start: 05-31-2021 ambulatory [facility] Start: 04-19-2021 End: 04-19-2021 Office outpatient visit 25 minutes Rosa Khan MD Work Phone: [facility] Comment on above: 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 (Primary Dx); Essential (primary) hypertension; Mixed hyperlipidemia Start: 02-09-2021 End: 02-09-2021 ambulatory [facility] Start: 02-05-2021 End: 02-06-2021 ambulatory [facility] Start: 02-05-2021 End: 02-05-2021 Subsequent hospital visit by physician Yojana Brooks MD Work Phone: [facility] Start: 02-05-2021 End: 02-05-2021 ambulatory [facility] Start: 03-23-2020 End: 03-23-2020 Subsequent hospital visit by physician Jarrell Gray [facility] Comment on above: Benign prostatic hyp erplasia with weak urinary stream Kidney stone Start: 11-03-2019 End: 11-03-2019 Subsequent hospital visit by physician Lilly Philippe Work Phone: [facility] Comment on above: Chronic gout of righ t foot, unspecified cause Start: 08-25-2019 End: 08-25-2019 Subsequent hospital visit by physician [facility] Comment on above: Screening for endocr ine, metabolic and immunity disorder Start: 08-20-2019 End: 08-20-2019 Subsequent hospital visit by physician Lilly Philippe Work Phone: [facility] Comment on above: Benign prostatic hyp erplasia with weak urinary stream Start: 05-06-2019 End: 05-06-2019 Refill Levi Ramos, Family Practice Start: 03-21-2019 End: 03-21-2019 Subsequent hospital visit by physician Ginny Hylton [facility] Comment on above: Microscopic hematuri a Microscopic hematuri a (Primary Dx); Kidney stone; Microhematuria Start: 03-18-2019 End: 03-18-2019 Orders Only Levi Ramos, Family Practice Comment on above: Screening for endocr ine, metabolic and immunity disorder (Primary Dx) Start: 03-03-2019 End: 03-03-2019 Subsequent hospital visit by physician Ginny Hylton Work Phone: [facility] Comment on above: Microhematuria; Abnormal urinalysis Start: 02-25-2019 End: 02-25-2019 Subsequent hospital visit by physician Tay Solis Work Phone: [facility] Comment on above: BPH without obstruct ion/lower urinary tract symptoms Kidney stone; Bladder stones Start: 02-19-2019 End: 02-19-2019 Subsequent hospital visit by physician Ben Simental Work Phone: [facility] [place] Comment on above: History of colon vivian yps; History of colon polyps Start: 02-18-2019 End: 02-18-2019 Telephone encounter Ben Simental Work Phone: [facility] Comment on above: Information [...] Start: 08-25-2019 CBC WITH DIFFERENTIAL C athertoshia Philippe Work Phone: Start: 08-25-2019 Comprehensive metabo lic [...] 08-24-2024 Fasting lipid profile LIPID SCREENIN G [employer] Start: 02-20-2024 Screening colonoscopy G [facility] [employer] [facility] Start: 02-20-2024 Screening for malign ant neoplasm of colon COLONOSCOPY HIGH RISK (5 YEAR) TRA [facility] Start: 11-20-2023 Fasting lipid profile LIPID SCREENIN G [facility] [employer] [facility] Start: 04-18-2023 Patient discharge [facility] Start: 04-18-2023 [facility] Start: 04-18-2023 [facility] Start: 04-16-2023 [facility] Start: 04-15-2023 Application of intermittent pneumatic compression device [facility] Start: 04-13-2023 Referral to gas shovel operator [facility] Start: 04-12-2023 Respiratory secretio n precautions [facility] Start: 04-12-2023 Bacteria identified in Blood by Culture Blood Culture [facility] Start: 04-12-2023 Following clinical pathway protocol [facility] Start: 04-12-2023 Assessment of risk o f venous thromboembolism [facility] Start: 04-12-2023 Insertion of cathete r into peripheral vein [facility] Start: 04-12-2023 Measuring intake and output [facility] Start: 04-12-2023 Providing care accor ding to standard [facility] Start: 04-12-2023 Provision of activit y privileges [facility] Start: 04-12-2023 Referral to diesel technician [facility] Start: 04-12-2023 Referral to occupati onal therapist [facility] Start: 04-12-2023 Referral to service [facility] Start: 04-12-2023 Tobacco use cessatio n education [facility] Start: 04-12-2023 [facility] Start: 04-12-2023 Partial thromboplast in time, activated [facility] Start: 04-12-2023 Prothrombin time [facility] Start: 04-12-2023 Admission procedure [facility] Start: 04-12-2023 Hospital admission, emergency, from emergency room, medical nature [facility] Start: 04-12-2023 End: 04-12-2023 Blood culture [facility] Start: 04-12-2023 Patient referral to dietitian [facility] Start: 04-19-2022 End: 04-19-2022 Patient encounter procedure 04/19/2022 Office Visit Cardiology Dannielle Hartmann MD [address] [place] [address] [facility] Start: 12-19-2021 End: 12-19-2021 Patient encounter procedure 12/19/2021 Office Visit Vascular Surgery Darion Bass, DO [address] [place] [address] [facility] Start: 11-17-2021 Influenza vaccination Influenza Vacc ine (#1) [facility] Start: 11-17-2021 Influenza vaccinatio n given INFLUENZA VACCINE (#1) [facility] Start: 09-16-2021 Glaucoma screening GLAUCOMA/EY E EXAM AGE 65+ [facility] Start: 03-30-2021 End: 03-30-2021 Patient encounter procedure 03/30/2021 Office Visit Urology Tay Solis APRN [address] [address] [facility] Start: 03-10-2021 COVID-19 Vaccine (3 - Booster for Moderna series) COVID-19 Vaccine (3 - Booster for Moderna series) [facility] Start: 02-22-2021 Uric acid measurement URIC ACID [facility] Start: 02-08-2021 COVID-19 Vaccine (3 - Booster for Moderna series) COVID-19 Vaccine (3 - Booster for Moderna series) [facility] Start: 11-17-2020 Influenza vaccination Influenza Vacc ine (#1) [facility] Start: 11-17-2020 Influenza vaccinatio n given INFLUENZA VACCINE (#1) [facility] Start: 10-20-2020 ANNUAL WELLNESS VISIT ANNUAL WELLNES S VISIT [facility] Start: 10-19-2020 Adult depression screening assessment DEPRESSION SCREENING [facility] Start: 10-19-2020 Fall risk assessment FALL RISK [facility] Start: 10-19-2020 End: 10-19-2020 Office Visit 10/19/2020 Office Visit Family Medicine Kiarra Ramos DO [address] [place] [address] [phone] Dr Kiarra Ramos, Family [facility] Start: 09-08-2020 COVID-19 VACCINE (2 - Moderna 3-dose booster series) COVID-19 VACCINE (2 - Moderna 3-dose booster series) [facility] Start: 09-08-2020 COVID-19 VACCINE (2 - Moderna 3-dose series) COVID-19 VACCINE (2 - Moderna 3-dose series) [facility] Start: 09-08-2020 COVID-19 VACCINE (2 - Moderna series) COVID-19 VACCINE (2 - Moderna series) [facility] Start: 09-06-2020 End: 09-06-2020 Office Visit 09/06/2020 Office Visit Family Medicine Kiarra Ramos DO [address] [place] [address] [phone] Dr Kiarra Ramos, [facility] Start: 09-01-2020 End: 09-01-2020 Clinical Support 09/01/2020 Clinical Support [facility], [facility] [address] [place] [address] [phone] Dr Kiarra Ramos, [facility] Start: 03-29-2020 End: 03-29-2020 Office Visit 03/29/2020 Office Visit Urology Ginny Hylton APRN [address] [address] [phone] [facility] Start: 03-01-2020 End: 03-01-2020 Office Visit 03/01/2020 Office Visit Family Medicine Kiarra Ramos DO [address] [place] [address] [phone] Dr Kiarra Ramos, [facility] Start: 02-23-2020 End: 02-23-2020 Clinical Support 02/23/2020 Clinical Support [facility], [facility] [address] [place] [address] [phone] Dr Kiarra Ramos, [facility] Start: 11-18-2019 Influenza vaccinatio n given [facility] Start: 09-03-2019 End: 09-03-2019 Office Visit 09/03/2019 Office Visit [facility] Medicine Kiarra Ramos DO [address] [facility] [place], [place] [id number] Dr Kiarra Ramos, [facility] Start: 06-17-2019 End: 06-17-2019 Office Visit 06/17/2019 Office Visit [facility] Medicine Kiarra Ramos DO [address] [facility] [place] [address] [phone] Dr Kiarra Ramos, [facility] Start: 06-09-2019 End: 04-18-2020 CBC with Differential CBC with Differential Lab Routine Screening for endocrine, metabolic and immunity disorder Expected: 06/09/2019 (Approximate), Expires: 04/18/2020 [facility] Comment on above: Expected: 06/09/2019 (Approximate), Expires: 04/18/2020 Start: 06-09-2019 End: 04-18-2020 Comprehensive metabolic panel aka [facility] Comprehensive metabolic panel aka [facility] Lab Routine Screening for endocrine, metabolic and immunity disorder Expected: 06/09/2019, Expires: 04/18/2020 [facility] Comment on above: Expected: 06/09/2019 , Expires: 04/18/2020 Start: 06-09-2019 End: 04-18-2020 Lipid panel Lipid panel Lab Routine Screening for endocrine, metabolic and immunity disorder Expected: 06/09/2019 (Approximate), Expires: 04/18/2020 [facility] Comment on above: Expected: 06/09/2019 (Approximate), Expires: 04/18/2020 Start: 06-09-2019 End: 04-18-2020 TSH Qn TSH Lab Routine Screening for endocrine, metabolic and immunity disorder Expected: 06/09/2019 (Approximate), Expires: 04/18/2020 [facility] Comment on above: Expected: 06/09/2019 (Approximate), Expires: 04/18/2020 Start: 03-28-2019 End: 03-28-2019 Procedure visit 03/28/2019 Procedure visit Urology Jarrell Gray MD [address] [place] [address] [phone] [facility] Start: 03-21-2019 End: 03-21-2019 Appointment 03/21/2019 Appointment Radiology Hylton GinnyGUERRERO SOFTWARE APPLICATION[employer] ARCHITECT [address] [address] [phone] [facility] Start: 03-18-2019 End: 03-18-2019 Office Visit 03/18/2019 Office Visit Family Medicine Lilly Philippe, ENGRAVINGS POLISHER SOFTWARE APPLICATIONS ARCHITECT [address] [place] [address] [phone] Dr Kiarra Ramos, Family Practice Start: 03-03-2019 End: 03-03-2019 Office Visit 03/03/2019 Office Visit Urology Solis GinnyGUERRERO [employer] AP[employer] ARCHITECT [address] [address] [phone] [facility] Start: 12-13-2018 COLONOSCOPY 3YRS HIG H RISK COLONOSCOPY 3YRS HIGH RISK [facility] Start: 11-17-2018 Influenza vaccinatio n given INFLUENZA VACCINE (#1) [facility] Start: 05-30-2017 [facility] Start: 02-28-2014 Pneumococcal Vaccine : 65+ Years (2 - PCV) Pneumococcal Vaccine: 65+ Years (2 - PCV) [facility] Start: 2010 Fall risk assessment FALL RISK [facility] Start: 2010 Glaucoma screening GLAUCOMA/EY E EXAM AGE 65+ [facility] Start: 2010 Pneumococcal 23-mecca nt polysaccharide vaccination given (situation) PNEUMONIA VACCINE (PCV13 PPSV23) (1 - PCV) [facility] Start: 2010 Pneumococcal polysaccharide vaccine (product) PNEUMONIA VACCINE (PCV13 PPSV23) (1 of 2 - PCV13) [facility] Start: 09-16-2008 DTaP/Tdap/Td Vaccine s (2 - Td or Tdap) DTaP/Tdap/Td Vaccines (2 - Td or Tdap) [facility] Start: 2005 Varicella-zoster vac cine (product) ADULT VZV VACCINE [facility] Start: 1995 SHINGLES VACCINE (1 of 2) VENTURA GLES VACCINE (1 of 2) [facility] Start: 1995 Zoster vaccine hzv l mark for subcutaneous use ZOSTER (SHINGLES) VACCINE (1 of 2) [facility] Start: 1995 Zoster Vaccines (1 of 2) Zoster Vacc lyndsay (1 of 2) [facility] Start: 1966 Tetanus, diphtheria and acellular pertussis vaccination TDAP/TD ADULT [facility] Start: 1963 ANNUAL WELLNESS VISIT ANNUAL WELLNES S VISIT [facility] Start: 1963 WELLNESS ANNUAL VISIT WELLNESS ANNUA L VISIT [facility] Start: 1957 Adult depression screening assessment [facility] Start: 1957 Depression screening using PHQ-9 (Patient Health Questionnaire 9) score DEPRESSION SCREENING [facility] Start: 01-04-1956 Administration of diphtheria + tetanus + acellular pertussis vaccine DTAP/TDAP/TD VACCINE (1 - Tdap) [facility] Start: 01-04-1956 Diphtheria + pertuss is + tetanus vaccine (product) DTAP/TDAP/TD VACCINE (1 - Tdap) [facility] Start: 1945 Hepatitis C screening HEPATITIS C SC REENING [facility] Start: 1945 Lipid panel Lipid Panel [facility] Bilirubin measuremen t, urine [facility] End: 03-21-2019 CT Abdomen WO and W contrast IV CT Abdomen Pelvis With and Without IV Contrast Imaging Routine Kidney stone Microhematuria 1 Occurrences starting 03/21/2019 until 03/21/2019 [facility] Comment on above: 1 Occurrences starti ng 03/21/2019 until 03/21/2019 CT Abdomen WO and W contrast IV CT Abdomen Pelvis With and Without IV Contrast Imaging Routine Kidney stone Microhematuria 03/21/2019 10:22 AM EST [facility] ECG 12 Lead - In Clinic ECG 12 L ead - In Clinic ECG Routine Essential (primary) hypertension Ordered: 04/19/2021 [facility] Work Phone: Comment on above: Ordered: 04/19/2021 Hemoglobin [Presence ] in Urine [facility] Hemoglobin A1c/Hemoglobin.total in Blood [facility] Hepatic function panel [facility] INR in Blood by Coagulation assay [facility] Lipid 1996 panel - S yuki or Plasma [facility] Measurement of keton es in urine using dipstick [facility] Microscopic urinalysis [facility] End: 01-12-2022 MR Brain WO contrast [facility] Comment on above: 1 Occurrences starti ng 01/12/2022 until 01/12/2022 NM Heart Views W str ess and W radionuclide IV [facility] Oxygen Therapy Nasal Cannula; Liters Per Minute: 2.0 LPM; RT may modify oxygen administration per policy: Yes During procedure Oxygen Therapy Nasal Cannula; Liters Per Minute: 2.0 LPM; RT may modify oxygen administration per policy: Yes During procedure Respiratory Care Routine Continuous until discontinued starting 02/19/2019 [facility] Comment on above: Continuous until dis continued starting 02/19/2019 Patient referral [facility] Work Phone: pH of Urine [facility] POCT glucose for medication controlled diabetic patient POCT glucose for medication controlled diabetic patient Lab Routine ONE TIME for 1 Occurrences starting 02/19/2019 [facility] Comment on above: ONE TIME for 1 Occur rences starting 02/19/2019 Pulse oximetry, continuous Pulse oximetry, continuous Respiratory Care Routine Continuous until discontinued starting 02/19/2019 [facility] Comment on above: Continuous until dis continued starting 02/19/2019 End: 02-05-2021 SARS-COV-2, qPCR ([facility]) [facility] Work Phone: Comment on above: One Time for 1 Occur rences starting 02/05/2021 until 02/05/2021 End: 09-30-2021 SARS-COV-2, [facility] Cued Work Phone: Comment on above: One Time for 1 Occur rences starting 09/30/2021 until 09/30/2021 Specific gravity of Urine [facility] End: 02-19-2019 Surgical Pathology Exam Surgical Pathology Exam Lab Routine One Time for 1 Occurrences starting 02/19/2019 until 02/19/2019 [facility] Comment on above: One Time for 1 Occur rences starting 02/19/2019 until 02/19/2019 Urinalysis, blood, qualitative [facility] End: 03-03-2019 Urine culture and sensitivity Urine culture and sensitivity Microbiology Routine Microhematuria Abnormal urinalysis 1 Occurrences starting 03/03/2019 until 03/03/2019 [facility] Comment on above: 1 Occurrences starti ng 03/03/2019 until 03/03/2019 Urine culture and sensitivity Urine culture and sensitivity Microbiology Routine Microhematuria Abnormal urinalysis 03/03/2019 1:30 PM EST [facility] Urine dipstick for glucose [facility] Urine dipstick for leukocyte esterase [facility] Urine dipstick for nitrite [facility] Urine dipstick for protein [facility] Urine examination [facility] Urine microscopy: epithelial cells [facility] Urine Microscopy: wh ite cells [facility] Urobilinogen [Presen ce] in Urine [facility] End: 12-15-2021 VAS ANKLE BRACHIAL INDEX [employer] Work Phone: Comment on above: Once for 1 Occurrenc es starting 12/15/2021 until 12/15/2021 Immunizations Immunization Date Immunization Notes Care Provider Fa cility 06-10-2024 Pneumococcal conjuga te PCV20, polysaccharide [id number] conjugate, adjuvant, PF; Translations: [Prevnar 20] ANGELA MERA MD [facility] 03-05-2024 tetanus toxoid, redu larry diphtheria toxoid, and acellular pertussis vaccine, adsorbed ANGELA MREA MD [facility] 02-25-2024 RSV vaccine preF3, recombinant ANGELA MERA MD [facility] 01-25-2024 influenza, high dose seasonal, preservative-free; Translations: [Fluad PF Prefilled Syringe ] ANGELA MERA MD [facility] 09-08-2020 SARS-CoV-2 (COVID-19 ) [id number] vaccine [facility]ELA [facility] Comment on above: Result Comment: 2022: 75 08-11-2020 SARS-CoV-2 (COVID-19 ) mRNA-1273 vaccine ANGELA MERA MD [facility]iss[facility]ie And[facility] Comment on above: Result Comment: 2022: 75 02-28-2013 influenza virus vacc ine, unspecified formulation Rosa Khan MD Work Phone: [facility] Payers Date Payer Category Payer Private Health Insurance [id number] 2024 Unknown [id number] 2023 Self-pay 2023 Unknown [id number] 2023 Unknown [id number] 2023 Unknown [id number] 2021 Medicare [id number] 2017 Medicare [id number] 2017 Medicare AETNA MEDICARE A DVANTAGE AETNA MEDICARE ADVANTAGE PPO [id number] 2017-Present [phone] [address] [place] [address] Medicare [id number]. [id number] 2017 Medicare [id number]. 1.13.248.2. [id number] 1945 Unknown [id number] 2.16.840.1.882070.3.579.2. 297 1945 Unknown [id number] 2.16.840.1.223727.3.579.2. 297 1945 Unknown [id number] 2.16.840.1.579191.3.579.2. 297 1945 Unknown [id number] 2.16.840.1.946842.3.579.2. 297 1945 Unknown [id number] 2.16.840.1.871101.3.579.2. 297 1945 Unknown [id number] 2.16.840.1.378880.3.579.2. 297 1945 Unknown [id number] 2.16.840.1.951646.3.579.2. 297 1945 Unknown [id number] 2.16.840.1.164286.3.579.2. 297 1945 Unknown [id number] 2.16.840.1.642548.3.579.2. 297 1945 Unknown [id number] 2.16.840.1.185248.3.579.2. 627 1945 Unknown [id number] 2.16.840.1.446083.3.579.2. 627 1945 Unknown [id number] 2.16.840.1.857507.3.579.2. 627 1945 Unknown [id number] 2.16.840.1.658066.3.579.2. 627 1945 Unknown [id number] 2.16.840.1.500797.3.579.2. 627 1945 Unknown [id number] 2.16.840.1.493155.3.579.2. 627 1945 Unknown [id number] 2.16.840.1.961395.3.579.2. 627 1945 Unknown [id number] 2.16.840.1.161558.3.579.2. 627 1945 Unknown [id number] 2.16.840.1.264618.3.579.2. 627 1945 Unknown [id number] 2.16.840.1.754318.3.579.2. 627 1945 Unknown [id number] 2.16.840.1.099125.3.579.2. 627 1945 Unknown [id number] 2.16.840.1.941544.3.579.2. 627 Medicare [id number] Medicare [id number] Medicare [id number] Unknown [id number] 2.16.840.1.285483.3.579.2. 462 Unknown [id number] 2.16840.1.055023.3.579.2. 462 Unknown [id number] 2.16840.1.029173.3.579.2. 462 Unknown [id number] 2.16840.1.361238.3.579.2. 462 Social History Date Type Detail Facility Start: 02-19-2019 End: 05-22-2023 Tobacco smoking status NHIS Never smoker [facility] Start: 02-19-2019 End: 02-09-2021 Alcohol intake Current non-drinker of alcohol (finding) [facility] Start: 1945 Sex Assigned At Not on file [facility] Start: 03-18-2019 End: 10-31-2019 Tobacco use and exposure Never used [facility] Start: 04-19-2021 End: 11-23-2021 Alcohol intake Lifetime non-drinker (finding) [facility] Start: 04-19-2021 History SDOH Alcohol Frequency 1 [facility] Start: 12-05-2021 End: 12-15-2021 Exposure to SARS-CoV-2 (event) Not sure [facility] Start: 1945 Sex Assigned At Male [facility] Start: 04-12-2023 End: 05-22-2023 Tobacco smoking status MDIS Unknown if ever smoked [facility] Sexual Orientation Marissa Ann Nikolski Sex Male (finding) [facility] ector Goals Date Patient Goal Desired Activity /State Functional Status Date Assessment Result Facility 04-18-2023 Functional status Chair [place] [facility] Work Phone: Mental Status Date Assessment Result Facility 04-18-2023 Cognitive function Voice/Name [facility] Work Phone: 04-12-2023 Cognitive function Level Of Cons ciousness Awake;Appropriate;Lethargic [facility] Work Phone: Clinical Notes 04-19-2021 to 09-18-2024 Note Date & Type Note Facility 09-18-2024 Evaluation note Diagnosis Onset Date Resolution Heart failure with preserved ejection fraction acute September 18, 2024 1:16pm 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 MICRO - Microbiology PROCEDURE: Urine Culture [...] Locations *1: This test was performed at: [facility], [address] [place] [address], [address] , [facility]07-21-2024 Note. MICRO - Microbiology PROCEDURE: Urine Culture [*1] SOURCE: Urine, Clean Catch BODY SITE: COLLECTED DATE/TIME: 10/05/2023 16:24 EDT RECEIVED DATE/TIME: 10/05/2023 19:44 EDT START DATE/TIME: 10/05/2023 19:44 EDT FREE TEXT SOURCE: FINAL REPORTS Final Report [] Verified Date/Time/Personnel: 10/07/2023 09:11 EDT 10,000 - 50,000 cfu/ml Zulema albicans Contact Microbiology within 72 hours if further identification is indicated ([id number]). [place] counts from a single urine are equivocal [...] *1: This test was performed at: [address], [address] [place], [place] 1533805-20-2023 Note. MICRO - Microbiology PROCEDURE: Urine Culture [...] *1: This test was performed at: [address], [address] [place] [address])04-18-2023 Discharge summary Author Jesse Slade [facility] April 18, 2023 2:44pm Note Date/Time April 18, 2023 2 :44pm [facility] Medical Records Department [address] [place] [address] Discharge Summary 04/18/23 1443 MR#: [id number] Acct: [id number] Name: FREDY BOX Rep #:[id number] : 1945 78 From: Jesse Slade DO PCP: Dr. Angela Mera MD Status:ADM IN Location: [place] [address] Providers Date of Admission: 04/12/23 Primary Care [...] Medically stable. 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 Jesse Slade DO; Dr. Angela Mera MD~ Signed [facility] Work Phone: 1(329) 222-973701-31-2024 Discharge summary Author Jesse Slade [facility] April 18, 2023 12:44pm Note Date/Time April 18, 2023 1 2:42pm [facility] Medical Records Department [address] [place] [address] Transfer to [facility] MR#: [id number] Acct: [id number] Name: FREDY BOX Rep #:[id number] : 1945 78 From: Jesse Slade DO PCP: Dr. Angela Mera MD Status:ADM IN Certification of patient admission REQUIRED AT TIME OF ADMISSION. I CERTIFY THAT POST-HOSPITAL ECF SERVICES ARE REQUIRED TO BE GIVEN ON AN IN-PATIENT BASIS BECAUSE OF THE ABOVE NAMED PATIENT'S NEED FOR CORRECTION CARE ON A CONTINUING BASIS FOR THE [...] Medically stable. Patient and family decided to [facility] but would not have any beds [...] MD [Primary Care Provider] - Yojana Ugarte SOLE LAYER HAND, SOLE LAYER HAND-C [Med Staff - [facility] Practice Prof] - 04/23/23 11:00 am Disposition Disposition (needs filled in before D/C Order can be placed): Half-Way Facility (2) Rhabdomyolysis Qualifiers: Rhabdomyolysis type: traumatic Encounter type: initial encounter Qualified Code(s): T79.6XXA - Traumatic ischemia of muscle, initial encounter 04/18/23 1244 <Electronically signed by Jesse Slade DO> Cosigner Signature (if applicable): CC: Dr. Gagandeep Felder MD; Dr. Jack Fuller MD; Dr. Tesha Layne MD; Dr. Angela Mera MD ~ [facility] Work Phone: 1(921) 991-647001-31-2024 Progress note Author Jesse [facility] April 18, 2023 12:41pm Note Date/Time April 18, 2023 7 :59am [facility] Medical Records Department [address] [place] [address] Progress Note - Hospitalist 04/18/23 0758 MR#: [id number] Acct: [id number] Name: FREDY BOX Rep #:[id number] : 1945 78 From: Jesse Slade DO PCP: Dr. Angela Mera MD Status:ADM IN Location: [place] [address] Subjective Subjective Feels better. 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 Patient and family decided to [facility] but would not have any beds available until the . Charges/Coding Visit Charges Inpatient E&M: 70554 Subs Hosp L2 04/18/23 1241 <Electronically signed by Jesse Slade DO> Cosigner Signature (if applicable): CC: ~ Signed [facility] Work Phone: 1(346) 814-659801-30-2024 Progress note Author Jesse Slade [facility] April 17, 2023 1:11pm Note Date/Time April 17, 2023 8 :32am [facility] Medical Records Department [address] [place] [address] Progress Note - Hospitalist 04/17/23 0832 MR#: [id number] Acct: [id number] Name: FREDY BOX Rep #:[id number] : 1945 78 From: Jesse Slade DO PCP: Dr. Angela Mera MD Status:ADM IN Location: [place] [address] Subjective Subjective Weak voice ongoing. 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 Lab / Micro Data 04/17/23 07:14 04/17/23 07:14 Labs: Laboratory Results - last 24 hr 04/16/23 09:25: Urine Color Yellow, Urine Clarity Clear, Urine pH 6.0, Ur Specific [place] 1.010, Urine Protein 30 H, Urine Glucose [...] Medically stable. Patient and family decided to [facility] but would not have any beds available until the . Charges/Coding Visit Charges Inpatient E&M: 07012 Subs Hosp L2 04/17/23 1311 <Electronically signed by Jesse Slade DO> Cosigner Signature (if applicable): CC: ~ Signed [facility] Work Phone: 1(203) 260-367301-30-2024 Progress note Author Gagandeep Felder [facility] April 17, 2023 1:01pm Note Date/Time April 17, 2023 1 0:15am [facility] Medical Records Department [address] [place] [address] Progress Note - Nephrology 04/17/23 1010 MR#: [id number] Acct: [id number] Name: FREDY BOX Rep #:[id number] : 1945 78 From: Halie BRIGHT PCP: Dr. 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 Potassium and bicarb normal. - CPK 28,000 [...] creatinine is 1.23. 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 Potassium and bicarb normal. - CPK 28,000 [...] by Gagandeep Felder MD> CC: ~ Signed [facility] Work Phone: 1(470) 832-515001-29-2024 Progress note Author Jesse Slade [facility] April 16, 2023 2:24pm Note Date/Time April 16, 2023 9 :30am [facility] Medical Records Department [address] [place] [address] Progress Note - Hospitalist 04/16/23 0922 MR#: [id number] Acct: [id number] Name: FREDY BOX Rep #:[id number] : 1945 78 From: Jesse Slade DO PCP: Dr. Angela Mera MD Status:ADM IN Location: [place] [address] Subjective Subjective Feeling very weak. Walking to and from the bathroom with a walker and assistance was like Misaelin. 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 Patient and family decided to [facility] but would not have any beds [...] the phone. Charges/Coding Visit Charges Inpatient E&M: 07958 Subs Hosp L3 04/16/23 1424 <Electronically signed by Jesse Slade DO> Cosigner Signature (if applicable): CC: ~ Signed [facility] Work Phone: 1(327) 527-864201-28-2024 Progress note Author Teshachance Layne [facility] April 15, 2023 2:00pm Note Date/Time April 15, 2023 1 2:17pm [facility] Medical Records Department [address] [place] [address] Progress Note 04/15/23 1215 MR#: [id number] Acct: [id number] Name: FREDY BOX Rep #:[id number] : 1945 78 From: Tesha Layne MD PCP: Dr. Angela Mera MD Status:ADM IN Location: [place] [address]- Subjective Subjective Patient and examined. 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 * Charges/Coding Visit Charges Inpatient E&M: 92388 Subs Hosp L2 04/15/23 1400 <Electronically signed by Tesha Layne MD> Tesha Layne MD Cosigner Signature (if applicable): CC: ~ Signed [facility] Work Phone: 1(430) 207-261401-28-2024 Progress note Author Jack Fuller [facility] April 15, 2023 9:49am Note Date/Time April 15, 2023 9 :49am [facility] Medical Records Department [address] [place] [address] Progress Note - Cardiology 04/15/23 0943 MR#: [id number] Acct: [id number] Name: FREDY BOX Rep #:[id number] : 1945 78 From: Jack Fuller MD PCP: Dr. Angela Mera MD Status:ADM IN Location: [place] [address] Subjective Subjective The patient's telemetry showed short [...] 77.0 H, Lymph % (Auto) 14.9 L, [place] % (Auto) 7.2, Eos % (Auto) 0.3, [...] 77.0 H, Lymph % (Auto) 14.9 L, [place] % (Auto) 7.2, Eos % (Auto) 0.3, [...] is needed please feel free to recontact [facility]. The patient is follow-up per his previously arranged appointment in the [facility] and as needed. Charges/Coding Visit Charges Inpatient E&M: 06306 Subs Hosp L2 04/15/23 0949 <Electronically signed by Jack Fuller MD> Cosigner Signature (if applicable): CC: ~ Signed [facility] Work Phone: 1(177) 272-953701-28-2024 Consult note Author Gagandeep Felder [facility] April 15, 2023 9:45am Note Date/Time April 15, 2023 9 :45am [facility] Medical Records Department [facility] [place] [address] [place] [address] Consultation - Nephrology 04/15/23 0942 MR#: [id number] Acct: [id number] Name: FREDY BOX Rep #:[id number] : 1945 78 From: Gagandeep wiggins MD PCP: Dr. Angela Mera MD Status:ADM IN Location: [place] [address] Assessment & Plan Assessment/Plan (1) Rhabdomyolysis: QUALIFIERS: [...] weakness. Ongoing events include influenza, non-ST elevation [place], acute renal failure, rhabdomyolysis. Apparently he was very sick, was found down. Unable to tell me how long he was down. Currently complains of diffuse muscle pains, no focal muscle compartment pain. Kim catheter indwelling with decent urine output. No breathing difficulties. 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 Gagandeep Felder MD; Dr. Jack Fuller MD; Dr. Angela Mera MD~ Signed [facility] Work Phone: 1(834) 305-428501-27-2024 Progress note Author [facility] April 14, 2023 1:37pm Note Date/Time April 14, 2023 1 0:03[facility] Medical Records Department [address] [place] [address] Progress Note 04/14/23 1001 MR#: [id number] Acct: [id number] Name: FREDY BOX Rep #:[id number] : 1945 78 From: Tesha Layne MD PCP: Dr. Angela Mera MD Status:ADM IN Location: [place] [address] Subjective Subjective Patient seen and examined. 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 * [place] [address] * cut down fluids to 150cc/hr. NS. [...] Cosigner Signature (if applicable): CC: ~ Signed [facility] Work Phone: 1(995) 193-193701-26-2024 Progress note Author Tesha [facility] April 13, 2023 4:55pm Note Date/Time April 13, 2023 1 1:39am [facility] Medical Records Department [address] [place] [address] Progress Note 04/13/23 1136 MR#: [id number] Acct: [id number] Name: FREDY BOX Rep #:[id number] : 1945 78 From: Tesha Layne MD PCP: Dr. Angela Mera MD Status:ADM IN Location: [place] [address] Subjective Subjective Patient seen and examined. He [...] 84.0 H, Lymph % (Auto) 6.2 L, Lincoln % (Auto) 9.4, Eos % (Auto) 0.0, [...] H, Alkaline Phosphatase 85, Total Creatine Kinase 30725 H, Troponin I High Sens 3604 H*, [...] 86.6 H, Lymph % (Auto) 6.7 L, Lincoln % (Auto) 6.0, Eos % (Auto) 0.0, [...] H, Alkaline Phosphatase 69, Total Creatine Kinase 36247 H, Total Protein 5.9 L, Albumin 2.6 [...] 150 cc[place] [address] [place] [address] * PT OT on board. Fall precautions. [...] code * Charges/Coding Visit Charges Inpatient E&M: 94929 Subs Hosp L3 04/13/23 1655 <Electronically signed by Tesha Layne MD> Tesha Layne MD Cosigner Signature (if applicable): CC: ~ Signed [facility] Work Phone: 1(298) 857-568301-26-2024 Progress note Author Jack Fuller [facility] April 13, 2023 9:42am Note Date/Time April 13, 2023 9 :39am [facility] Medical Records Department [address] [place] [address] Progress Note - Cardiology 04/13/23 0935 MR#: [id number] Acct: [id number] Name: FREDY BOX Rep #:[id number] : 1945 78 From: Jack Fuller MD PCP: Dr. Angela Mera MD Status:ADM IN Location: [place] [address] Subjective Subjective The patient reports she continues [...] 84.0 H, Lymph % (Auto) 6.2 L, Lincoln % (Auto) 9.4, Eos % (Auto) 0.0, [...] H, Alkaline Phosphatase 85, Total Creatine Kinase 75873 H, Troponin I High Sens 3604 H*, [...] 86.6 H, Lymph % (Auto) 6.7 L, Lincoln % (Auto) 6.0, Eos % (Auto) 0.0, [...] H, Alkaline Phosphatase 69, Total Creatine Kinase 06076 H, Total Protein 5.9 L, Albumin 2.6 [...] 84.0 H, Lymph % (Auto) 6.2 L, Lincoln % (Auto) 9.4, Eos % (Auto) 0.0, [...] 86.6 H, Lymph % (Auto) 6.7 L, Lincoln % (Auto) 6.0, Eos % (Auto) 0.0, [...] please call. Charges/Coding Visit Charges Inpatient E&M: 81339 Subs Hosp L2 04/13/23 0942 <Electronically signed by Jack Fuller MD> Cosigner Signature (if applicable): CC: ~ Signed [facility] Work Phone: 1(404) 226-723201-25-2024 History and physical note Author Tesha Layne [facility] April 12, 2023 4:38pm Note Date/Time April 12, 2023 1 2:50pm [facility] Medical Records Department [address] [place] [address] History & Physical Exam 04/12/23 1243 MR#: [id number] Acct: [id number] Name: FREDY BOX Rep #:[id number] : 1945 78 From: Tesha Layne MD PCP: Dr. Angela Mera MD Status:ADM IN Location: [facility] [id number] HPI - General General Date of [...] in the ED were BP of 119/61, RI of 66, RR of 23 nad he was saturating at 95% on 2L of oxygen. CBC showed Hb of 12.6, wbc of 8.8, platelets of 123. CBC showed sodium of 41, bicarb of 18, CR of 3.27 and lactic acid of 2.3. Initial troponin was 3604, and CPK [place] [address]. Respiratory panel was positive for flu A. CT of the cervical, thoracic and lumbar spine showed multiple level degenerativechanges. He is being admitted to be managed for DIAN in the setting of rhabdomyolysis, debility and non-STEMI. [facility]LY [facility], [facility] Medical History (Updated 04/12/23 @ 16:01 by [...] 84.0 H, Lymph % (Auto) 6.2 L, Lincoln % (Auto) 9.4, Eos % (Auto) 0.0, [...] H, Alkaline Phosphatase 85, Total Creatine Kinase 72824 H, Troponin I High Sens 3604 H*, [...] Patient elects to be full code. Total tixk-mh-hmno time 17 minutes. Charges/Coding Visit Charges Inpatient E&M: 82781 Init Hosp L3 Procedures Hospitalists Procedures: 96836 Advncd Care Plan 30 Min 04/12/23 1638 <Electronically signed by Tesha Layne MD> Cosigner Signature (if applicable): CC: Dr. eTsha Layne MD; Dr. Angela Mera MD~ Signed [facility] Work Phone: 1(775) 325-541201-25-2024 Consult note Author Jack Fuller [facility] April 12, 2023 4:05pm Note Date/Time April 12, 2023 4 :05pm [facility] Medical Records Department [address] [place] [address] Consultation - Cardiology 04/12/23 1550 MR#: [id number] Acct: [id number] Name: FREDY BOX Rep #:[id number] : 1945 78 From: Jack Fuller MD PCP: Dr. Angela Mera MD Status:ADM IN Location: [place] [address] Assessment & Plan Assessment/Plan (1) Rhabdomyolysis: QUALIFIERS: Rhabdomyolysis type: traumatic Encounter type: initial encounter Qualified Code(s): T79.6XXA - Traumatic ischemia of muscle, initial encounter PLAN: Patient CPK is 28,000 in the face of acute renal failure. The patient is being treated by the primary service for the rhabdomyolysis. (2) Coronary arteriosclerosis after percutaneous transluminal coronary angioplasty (PTCA): PLAN: Status post stenting in [facility] in 2010 the patient is not aware [...] coronary disease status post remote stenting in [facility] in 2010. He says he had 3 [...] interrogated at the time of my examination. [facility]LY [facility] Medical History (Updated 04/12/23 @ 16:01 by [...] 20% Risk Charges/Coding Visit Charges Inpatient E&M: 95889 Init Hosp L3 Objective Data Vital Signs: [...] 84.0 H, Lymph % (Auto) 6.2 L, Lincoln % (Auto) 9.4, Eos % (Auto) 0.0, [...] H, Alkaline Phosphatase 85, Total Creatine Kinase 27336 H, Troponin I High Sens 3604 H*, [...] 84.0 H, Lymph % (Auto) 6.2 L, Lincoln % (Auto) 9.4, Eos % (Auto) 0.0, [...] Fuller MD; Dr. Angela Mera MD~ Signed [facility] Work Phone: 1(798) 325-639401-25-2024 Discharge summary Author William Valerie [facility] April 12, 2023 3:00pm Note Date/Time April 12, 2023 1 0:47am [facility] Medical Records Department [address] [facility] [place] [address] Emergency Department Summary 04/12/23 MR#: [id number] Acct: [id number] Name: FREDY BOX Rep #:[id number] : 1945 78 From: William Gutierrez PCP: Dr. Angela Mera MD Status:ADM IN Location: [place] [address] HPI History of Present Illness Chief Complaint: [facility] Medical History (Updated 04/12/23 @ 14:57 by [...] Nasal Cannula Oxygen Flow Rate (L/min) 2 [facility] MDM Narrative Medical decision making narrative: HISTORY [...] 84.0 H Lymph % (Auto) 6.2 L Lincoln % (Auto) 9.4 Eos % (Auto) 0.0 [...] (Auto) Neut % (Auto) Lymph % (Auto) Lincoln % (Auto) Eos % (Auto) Baso % [...] H Alkaline Phosphatase 85 Total Creatine Kinase 57840 H Troponin I High Sens 3604 H* [...] Discharge Plan Disposition Disposition: Acute Care Hospital [facility] Discharge Date/Time: 04/12/23 13:32 What to do if you have Problems For any increased pain, shortness of breath, bleeding, nausea or vomiting, chestpain, or any unexpected problems, contact your Primary Care Provider. Call [facility] ([phone]) or report to the closest Emergency Room. Call 911 if necessary. 04/12/23 1500 <Electronically signed by William Padilla DO> Cosigner Signature (if applicable): CC: Dr. Angela Mera MD ~ Signed [facility] Work Phone: 1(399) 880-423902-01-2022 History of Present illness Narrative* Rosa Khan [...] The primary encounter diagnosis was Atherosclerosis of wiyot coronary artery of wiyot heart without angina pectoris. Diagnoses of Essential [...] file as of 04/19/2021. [facility] Instructions* Patient Instructions* Kimmie Marcelino CMA - [...] Pepper, herbs, and spices; vinegar, lemon, or houlton juice Low-fat frozen desserts (yogurt, sherbet, fruit [...] to make changes. Last Reviewed: February 2020 [facility] [place] Board Mira Gerard MS, RD, LDN Updated: 04/21/2020 [facility] Future App[facility]ments Appointment Date:08/01/2023 10:30:00 AM Scheduled Provider:ANGELA MERA MD Location:[facility] Appointment Type:PC OV [facility] Evaluation + Plan note Future Appointments Appointment Date:06/01/2023 01:30:00 PM Scheduled Provider:ANGELA MERA MD Location:[facility] Appointment Type:PC OV Follow Up Appointment Date:08/01/2023 10:30:00 AM Scheduled Provider:ANGELA MERA MD Location:[facility] Appointment Type:PC OV Diagnostic Tests Pending * Urine Culture 05/18/23 [facility] evaluation + Plan note Future Appointments Appointment Date:07/04/2023 10:30:00 AM Scheduled Provider: Location:[facility] Appointment Type:PC Nurse Lab Appointment Date:07/13/2023 10:30:00 AM Scheduled Provider:ANGELA MERA MD Location:[facility] Appointment Type:PC OV Appointment Date:09/18/2023 01:30:00 PM Scheduled Provider:ANGELA MERA MD Location:[facility] Appointment Type:PC OV Future Scheduled Tests Laboratory* Uric Acid 06/12/23 * Complete Blood Count 06/12/23 * Complete Metabolic Panel 06/12/23 [facility] CTMGellieation + Plan note Future Appointments Appointment Date:07/13/2023 10:30:00 AM Scheduled Provider:ANGELA MERA MD Location:[facility] Appointment Type:PC OV Appointment Date:09/18/2023 01:30:00 PM Scheduled Provider:ANGELA MERA MD Location:[facility] Appointment Type:PC OV Future Scheduled Tests Laboratory* B-Type Natriuretic Peptide 06/29/23 * Uric Acid 06/12/23 * Complete Blood Count 06/12/23 * Lipid Profile 06/29/23 * Complete Metabolic Panel 06/12/23 [facility] CTMGaluation + Plan note Future Appointments Appointment Date:12/19/2023 01:30:00 PM Scheduled Provider:ANGELA MERA MD Location:[facility] Appointment Type:PC OV Future Scheduled Tests Laboratory* B-Type Natriuretic Peptide 06/29/23 * Uric Acid 06/12/23 * Complete Blood Count 06/12/23 * Lipid Profile 06/29/23 * Complete Metabolic Panel 06/12/23 [facility] evaluation + Plan note Future Appointments Appointment Date:12/19/2023 01:30:00 PM Scheduled Provider:ANGELA MERA MD Location:[facility] Appointment Type:PC OV Future Scheduled Tests Laboratory* B-Type Natriuretic Peptide 06/29/23 * Complete Blood Count 11/29/23 * Sedimentation Rate Automated 11/29/23 * Complete Metabolic Panel 11/29/23 [facility] Evaluation + Plan note Future Appointments Appointment Date:04/23/2024 01:00:00 PM Scheduled Provider:ANGELA MERA MD Location:[facility] Appointment Type:PC OV Future Scheduled Tests Laboratory* B-Type Natriuretic Peptide 06/29/23 * Complete Blood Count 11/29/23 * Sedimentation Rate Automated 11/29/23 * Complete Metabolic Panel 11/29/23 [facility] Evaluation + Plan note Future Appointments Appointment Date:10/21/2024 01:30:00 PM Scheduled Provider:ANGELA MERA MD Location:[facility] Appointment Type:PC OV Appointment Date:12/11/2024 11:00:00 AM Scheduled Provider:ANGELA MERA MD Location:[facility] Appointment Type:PC OV Future Scheduled Tests Laboratory* Complete Blood Count 11/29/23 * Lipid Profile 10/21/24 * Sedimentation Rate Automated 11/29/23 * Complete Metabolic Panel 11/29/23 * Complete Metabolic Panel 10/21/24 [facility] Future Appointments Appointment [...] Panel 11/29/23 * Complete Metabolic Panel 10/21/24 [facility] Evaluation + Plan note Future Appointments Appointment Date:10/21/2024 01:30:00 PM Scheduled Provider:ANGELA MERA MD Location:[facility] Appointment Type:PC OV Appointment Date:12/11/2024 11:00:00 AM Scheduled Provider:ANGELA MERA MD Location:[facility] Appointment Type: OV Future Scheduled Tests Laboratory* Complete Blood Count 11/29/23 * Complete Blood Count 08/20/24 * Sedimentation Rate Automated 11/29/23 * Complete Metabolic Panel 11/29/23 [facility] Evaluation note* Diagnosis Atherosclerosis of wiyot coronary artery of wiyot heart without angina pectoris- Primary Essential (primary) hypertension Unspecified essential hypertension Mixed hyperlipidemia documented in [facility] encounter [facility]* Diagnosis Non-pressure chronic ulcer of other part of right lower leg with fat layer exposed PAD (peripheral artery disease) Unspecified peripheral vascular disease documented [facility] this [facility]* Diagnosis Mild cognitive impairment of uncertain or unknown etiology documented in this encounter [facility] System[facility] noteNo assessment information available [facility] Work Phone: Evaluation note* Diagnosis Onset Date Resolution Status DIAN (acute kidney injury) ac eklutna Cardiac enzymes elevated acu te [id number] acute PSVT (paroxysmal supraventricular tachycardia) acute Rhabdomyolysis acute Hypertension chronic [facility] Work Phone: Evaluation note* Diagnosis Onset Date Resolution Status [id number] chronic PSVT (paroxysmal supraventricular tachycardia) chronic DIAN (acute kidney injury) re solved Cardiac enzymes elevated res olved Rhabdomyolysis resolved [id number] chronic Essential hypertension chron ic Hyperlipidemia chronic MARTIN (dyspnea on exertion) ac eklutna Fatigue acute [id number] chronic Essential hypertension chron ic Hyperlipidemia chronic [facility] Work Phone: Evaluation note* Diagnosis Onset Date Resolution Status Admit Date Coronary arteriosclerosis af ter percutaneous transluminal coronary angiopla chronic September 18, 2024 1:16pm Hyperlipidemia chronic September 18, 2024 1:16pm [facility] Work Phone: Hospital course Narrative No data available for this section [facility] Hospital Discharge instructions No data available for this section [facility] Progress note No data available for this section [facility] Reason for referral (narrative)* Procedure Authorization (Routine) - Closed Specialty Diagnoses / Procedures Referred By Contac t Referred To Contact Radiology Diagnoses Mild cognitive impairment of uncertain or unknown etiology Procedures MRI Brain Without IV Contrast Milli Jc MD [address] [place] [address] [address] Referral ID Status Reason Start Date Expiration Date Visits Re quested Visits Authorized [id number] Closed 12/29/2021 03/18/2022 1 1 [facility] (narrative)No reason for referral information availableSt[facility] Work Phone: Reason for visit Narrative* Procedure Authorization (Routine) - Closed Specialty Diagnoses / Procedures Referred By Contac t Referred To Contact Radiology Diagnoses Mild cognitive impairment of uncertain or unknown etiology Procedures [place] [address] [place] [address] [address] Referral ID Status Reason Start Date Expiration Date Visits Re quested Visits Authorized [id number] Closed 12/29/2021 03/18/2022 1 1 [facility] Hospital Course * Ben Simental MD - [...] Where can you learn more? Go to https://www.CheckInPage.net/patientEd Enter U654 in the search box to learn more about High-Fiber Diet: Care Instructions. Current as of: November 06, 2018 Content Version: 12.3 7261-4004 [employer]. Care instructions adapted under license by your healthcare professional. If you have questions about a medical condition or this instruction, always ask your healthcare professional. [employer] disclaims any warranty or liability for your [...] FoundDocuments on File Type Date Recorded Patient Gasoline Tester Expl anation Advance Directives and Livin g Will Advance Directives and Livin g Will 12/13/2010 3:51 PM Power of Residential Child Care Counselor Latest Code Status on File Code Status Date Activated Date Inactivated Comments Full Code 02/19/2019 9:11 AM Full Code 12/14/2015 1:10 PM 12/14/2015 10:45 PM Full Code 12/13/2010 3:43 PM 12/14/2010 9:33 PM Documents on File Type Date Recorded Patient Gasoline Tester Expl anation Advance Directives and Livin g Will Advance Directives and Livin g Will 12/13/2010 3:51 PM Power of Residential Child Care Counselor Latest Code Status on File Code Status Date Activated Date Inactivated Comments Full Code 02/19/2019 9:11 AM 02/19/2019 5:28 PM Full Code 12/14/2015 1:10 PM 12/14/2015 10:45 PM Full Code 12/13/2010 3:43 PM 12/14/2010 9:33 PM Latest Code Status on File Code Status Date Activated Date Inactivated Comments Full Code 02/19/2019 9:11 AM 02/19/2019 5:28 PM Documents on File Type Date Recorded Patient Gasoline Tester Expl anation Advance Directives and Livin g Will Power of Residential Child Care Counselor Advance Directives and Livin g Will 12/13/2010 3:51 PM Documents on File Type Date Recorded Patient Gasoline Tester Expl anation Advance Directives and Living Will Power of Residential Child Care Counselor Documents on File Type Date Recorded Patient Gasoline Tester Expl anation Advance Directives and Livin g Will Power of Residential Child Care Counselor DNR Documentation Advance Directives and Livin g Will 12/13/2010 3:51 PM Documents on File Type Date Recorded Patient Gasoline Tester Expl anation Advance Directives and Living Will Power of Residential Child Care Counselor Advance Directive Response Recorded Date/ Time Living Will Yes April 12 10:51am Power of Residential Child Care Counselor Yes April 12, 2023 10:51am Name of Medical Power of Residential Child Care Counselor April 12, 2023 10:51am Advance Directive Response Recorded Date/ Time Name of Medical Power of Residential Child Care Counselor April 12, 2023 2:09pm Living Will Yes April 12 2:09pm Power of Residential Child Care Counselor Yes April 12, 2023 2:09pm Advance Directive Response Recorded Date/ Time Name of Medical Power of Residential Child Care Counselor April 12, 2023 3:09pm Living Will Yes April 12 3:09pm Power of Residential Child Care Counselor Yes April 12, 2023 3:09pm Reason for Referral Status Reason Specialty Diagnoses / Procedures Referre d By Contact Referred To Contact Closed Radiology Diagnoses Kidney stone Microhematuria Procedures CT Abdomen Pelvis With and Without IV Contrast Ginny Hylton APRN SOFTWARE APPLICATIONS ARCHITECT [address] [facility] [address] [place] [address] General Radiology [address] [place] [address] Specialty Diagnoses / Procedures Referred By Contac t Referred To Contact Diagnoses Non-pressure chronic ulcer of other part of right lower leg with fat layer exposed PAD (peripheral artery disease) Procedures VAS ANKLE BRACHIAL INDEX Darion Bass, [address] [address] Darion Bass, DO [address] [place] [phone] Referral ID Status Reason Start Date Expiration Date Visits Re quested Visits Authorized [id number] Closed 11/23/2021 11/23/2022 1 1 Summary Purpose [...] (acute kidney in jury) Cardiac enzymes elevated [id number] PSVT (paroxysmal supraventricular tachycardia) Rhabdomyolysis Hypertension Chief Complaint RHABDOMYOLYSIS NONST KATALINA RHABDOMYOLYSIS NONSTEMI RHABDOMYOLYSIS NONSTEMI RHABDOMYOLYSIS NONSTEMI RHABDOMYOLYSIS NONSTEMI RHABDOMYOLYSIS NONSTEMI RHABDOMYOLYSIS NONSTEMI RHABDOMYOLYSIS NONSTEMI RHABDOMYOLYSIS NONSTEMI RHABDOMYOLYSIS NONSTEMI ADMISSION EXAM LABWORK ADMISSION EXAM LABWORK LAB WORK S/P [facility] 04/17/23 F/U PER PCP INT LABS Reason for Visit [id number] PSVT (paroxysmal supraventricular tachycardia) DIAN (acute kidney injury) Cardiac enzymes elevated Rhabdomyolysis [id number] Essential hypertension Hyperlipidemia MARTIN (dyspnea on exertion) Fatigue [id number] Essential hypertension Hyperlipidemia Chief Complaint Admit Date [...] Procedures Case Request Operating Room: COLONOSCOPY DIAGNOSTIC RI COLONOSCOPY FLX DX W/COLLJ SPEC WHEN PFRMD 19256 - RI COLONOSCOPY FLX DX W/COLLJ SPEC WHEN PFRMD Tara Ordoñez PA [address] [place], [place] [id number] Reason Comments Information or Advice only Status Reason Specialty Diagnoses / Procedures Referre d By Contact Referred To Contact Closed Radiology Diagnoses Kidney stone Microhematuria Procedures CT Abdomen Pelvis With and Without IV Contrast Ginny Hylton APRN [address] [address] General Radiology [address] [place] [address] Reason Comments Medication Refill Reason Comments Follow-up 12 month f/u Specialty Diagnoses / Procedures Referred By Contcesar t Referred To Contact Diagnoses Non-pressure chronic ulcer of other part of right lower leg with fat layer exposed PAD (peripheral artery disease) Procedures VAS ANKLE BRACHIAL INDEX Darion Bass, [address] [place] [address] Darion Bass, [address] [place] [address] Referral ID Status Reason Start Date Expiration Date Visits Re quested Visits Authorized [id number] Closed 11/23/2021 11/23/2022 1 1 Result JessicaNotmili - Ginny Hylton APRN CNP - 03/23/2020 7:30 AM EST Miscellaneous Notes (unrecog nized section and content) This is preappt imaging, we will discuss at upcoming urology appt. documented in this encounter Care Teams (unrecognized sec tion and content) [employer] Equipment Tender Relationship Specialty Start Date End Date Ramos Lisa DO [address] [place] [address] PCP - General Family Medicine 02/05/21 Jarrell Gray MD Physician Urology 07/17/18 [employer] Tender Relationship Specialty Start Date End Date Rosa Khan MD [address] [place] [address] Consulting Physician Cardiology 03/18/20 [employer] Tender Relationship Specialty Start Date End Date Ramos Lisa DO [address] [place] [address] PCP - General Family Medicine 02/05/21 [employer] Tender Relationship Specialty Start Date End Date Kiarra Cam DO [address] [place] [address] PCP - General Internal Medicine 12/05/21 [employer] Equipment Tender Relationship Specialty Start Date End Date July, Kiarra Rebollar DO [address] [place] [phone] PCP - General Internal Medicine 10/25/21 Rosa Khan MD [address] [place] [phone] Consulting Physician Cardiology 03/18/20 [employer] Equipment Tender Relationship Specialty Start Date End Date July, DO Kiarra [address] [place] [address] PCP - General Internal Medicine 12/05/21 Team [...] Mera MD Primary Care Provider Active Dr. Tesah Layne MD Admit Provider, Other Provider Active [...] Provider, Referrin g Provider Active Yojana Ugarte SOLE LAYER HAND, SOLE LAYER HAND-C Attending Provider Active Team Status: Inactive Member Role Status Dates Dr. Angela Mera MD Primary Care Provider Active Angélica Bronson SOLE LAYER HAND, SOLE LAYER HAND-C Attending Provider Active Team Status: Inactive Member [...] and content) DATE CREATED AUTHOR 01/15/2022 [facility]Formerly [facility] DATE CREATED AUTHOR AUTHOR'S ORGANIZ ATION 08/27/2022 [facility] DATE CREATED AUTHOR AUTHOR'S ORGANIZ ATION 10/12/2023 [facility] ([place]) DATE CREATED AUTHOR AUTHOR'S ORGANIZ ATION 08/28/2024 [facility] DATE CREATED AUTHOR AUTHOR'S ORGANIZ ATION 09/30/2024 [facility] Goals (unrecognized section and content) Goals may [...] BE BASED ON THE PRIMARY CLINICAL RECORDS. [employer] [facility]. provides no warranty or guarantee of the accuracy or completeness of information in this document.
[2024-10-19 08:38] LABS: AST(SGOT) 41 U/L (<=37); Alanine Aminotransfer ALT/SGPT 21 U/L (<=46); Albumin, Serum 4.1 g/dL (3.4-4.8); Alkaline Phosphatase 94 U/L (40-129); Anion Gap 13 (5-15); BUN 42 mg/dL (4-19); BUN/Creat Ratio 18.1 RATIO (10-20); Calcium,Total 9.5 mg/dL (7.6-11.0); Carbon Dioxide 21.9 mmol/L (21.0-32.0); Chloride 106 mmol/L (98-108); Estimated Creatinine Clearance 28.52 ml/min (50-250); Globulin 3.6 g/dL (2.2-4.2); Glucose 113 mg/dL (70-99); Lipase 50 U/L (13-75); Potassium 5.5 mmol/L (3.3-5.1)
[2024-10-19 09:53] LABS: Mucous, Urine 0 SEEN /hpf (<or=2+); Squamous Epithelial Cells - UA 0 SEEN /hpf (0-5)
[2024-10-19 09:54] LABS: Color, Urine Yellow (Yellow); Glucose, Dipstick 1000 mg/dl (Normal); Ketone-Dipstick Negative (Negative); Leukocyte Esterase-Dipstick Negative /ul (Negative); Nitrite-Dipstick Negative (Negative); Occult Blood-Urine 25 /ul (Negative); Protein-Dipstick 30 mg/dl (Negative); Specific Gravity, Urine 1.020 (1.002-1.030); Urine Bilirubin Dipstick Negative (Negative)
[2024-10-19 10:05] LABS: Red Blood Cells-Urine 0-5 SEEN /hpf (0-5)
--- NOTE | 2024-10-19 11:15 | PCA ---
CALLED [facility] @ [phone] WAITING ON A BED.
--- NOTE | 2024-10-19 11:15 | PCA ---
CALLED [facility] @ 6423 WAITING ON A BED.
--- NOTE | 2024-10-19 16:07 | PCA ---
CALLED [facility] @ 0079 AND ASKED FOR A BED UPDATE. THEY SAID HE WILL DEF HAVE A BED TONIGHT. SHOULD BE SOON.
--- NOTE | 2024-10-19 16:07 | PCA ---
CALLED [facility] @ 8030 AND ASKED FOR A BED UPDATE. THEY SAID HE WILL DEF HAVE A BED TONIGHT. SHOULD BE SOON.
--- NOTE | 2024-10-19 18:00 | PCA ---
BED ASSIGNMENT 4720- 4 [facility] CALLED FOR RIDE AT 1800- ETA 2100
--- NOTE | 2024-10-19 18:00 | PCA ---
BED ASSIGNMENT 4720- 4 [facility] CALLED FOR RIDE AT 1800- ETA 2100
--- NOTE | 2024-10-19 18:04 | ED.RN ---
Report given to Marissa
--- NOTE | 2024-10-19 18:04 | ED.RN ---
Report given to Marissa
== END 2024-10-19 18:51 | disposition short-term general hospital (02) ==
LOC: ED 07:58
PROVIDERS: Emergency Provider Surgery; PCP Family Medicine; Visit Provider Surgery
DX: N13.2 Hydronephrosis with renal and ureteral calculous obstruction (principal); I50.9 Heart failure, unspecified; I11.0 Hypertensive heart disease with heart failure; F03.90 Unspecified dementia, unspecified severity, without behavioral disturbance, psychotic disturbance, mood disturbance, and anxiety; N17.9 Acute kidney failure, unspecified; I25.10 Atherosclerotic heart disease of native coronary artery without angina pectoris; E78.5 Hyperlipidemia, unspecified; N13.4 Hydroureter; R10.31 Right lower quadrant pain; E87.5 Hyperkalemia; Z86.73 Personal history of transient ischemic attack (TIA), and cerebral infarction without residual deficits; Z79.82 Long term (current) use of aspirin; Z79.899 Other long term (current) drug therapy
CPT/HCPCS: 74176; 80053; 81001; 83605; 83690; 85025; 96361; 96374; 96375; 96376; 99283; A4216; J2405

== ENCOUNTER 2024-11-07 20:08 | Inpatient (IN) | payer MEDICARE, SELFPAY ==
--- OUTSIDE RECORDS SUMMARY | 2024-11-07 20:17 | XMS RPT_ITS | CCD ---
Author Organization [facility] Care Team Providers Care Class B Driver Name Role Phone Jarrell Gray Unavailable Kiarra Ramos Primary Care Provider Jarrell Gray MD Unavailable Unavailable Campolo DO, Ramos Primary Care Provider Jim Khan MDa A Unavailable [phone] Campolo DO, Ramos Primary Care Provider July DO, Kiarra Primary Care Provider [phone] Bill LEMOS Rosa A Unavailable [phone] July DO, Korin Primary Care Provider CAMPOLO, RMAOS Referring Unavailable CAMPOLO, RAMOS Primary Care Unavailable [...] Care Unavailable ELEANOR HINSON Attending Unavailable JULY, KIARRA Referring Unavailable CAMPOLO, RAMOS Primary Care Unavailable KATHERIN NOBLE Attending Unavailable MAY, KIARRA Primary Care Unavailable MAY, KIARRA Referring Unavailable MAY, KIARRA Attending Unavailable CAMPOLO, RAMOS Referring Unavailable CAMPOLO, RAMOS Primary Care Unavailable ELEANOR HINSON Attending Unavailable DARION BASS Attending Unavailable JULY, KORIN Referring Unavailable JULY, KORIN Primary Care Unavailable DARION BASS Referring Unavailable JULY, KORIN Primary Care Unavailable DARION BASS Attending Unavailable JULY, KORIN Primary Care Unavailable EDE LEMOS, ANGELA Stallworth Primary Care Physician Dr. Angela Mera Primary Care Provider Dr. Cinthia Espinoza Attending Provider Dr. William Padilla Emergency Provider Korjayna, Dr. Tesha English Admit Provider Korjayna, Dr. [...] Provider Dr. Jesse Slade Other Provider Audie CLIENT RELATION SPECIALIST, CLIENT RELATION SPECIALIST-C Angélica Attending Provider Dr. Heath Mitchell Attending Provider Dr. Angela Mera Referring Provider Torito CLIENT RELATION SPECIALIST, CLIENT RELATION SPECIALIST-C Yojana Herrera Attending Provider OLIVIA Quintana Attending Provider ANGELA MERA MD Attending Unavailable [...] Unavailable ANGELA MERA MD Primary Care Unavailable Ede LEMOS, Dr. Kim Primary Care Provider Ede LEMOS, Dr. Kim Referring Provider [phone] Dr. Jack Fuller MD Attending Provider Jonny LEMOS, Dr. Santiago Referring Provider Dr. Juan M Hirsch DO Emergency Provider Velasquez Rounding Nurse, Jay Unavailable ANGELA Schneider MD Primary Care Unavailable JANET CONNELL Attending Unavail able ANGELA MERA MD Primary Care Unavailable JANET CONNELL Attending Unavail ANGELA Araiza MD Attending Unavailable ANGELA MERA MD Primary Care Unavailable ANGELA MERA MD Primary Care Unavailable SARINA VIVEROS MD Attending UnavailANGELA Clarke MD Attending Unavailable ANGELA MERA MD Primary Care Unavailable ANGELA MERA MD Attending Unavailable ANGELA MERA MD Primary Care Unavailable ANGELA MERA MD Attending Unavailable ANGELA MERA MD Primary Care Unavailable Angela Mera Referring Unavailable Lakesha Quintana Attending Unavail able Angela Mera Primary Care Unavailable Angela Mera Referring Unavailable Jack Fuller Attending Unavailable Angela Mera Primary Care Unavailable Sibilia, Po V Attending Unavailable Sibginny Po V Referring Unavailable Angela Mera Primary Care Unavailable Juan M Hirsch Attending Unavailabl Angela Hensley Primary Care Unavailable Jack Fuller Attending Unavailable Jack Fuller Referring Unavailable Angela Mera Primary Care Unavailable KELIN TEJADA DO Attending Unique ANGELA Neumann MD Primary Care Unavailable ANGELA MERA MD Primary Care Unavailable ANGELA MERA MD Consulting Unavailable JACKELINE LEMOS, SARINA Mojica Attending Unavaila loan LUGO MD, MARY Admitting Unavailable NIESHA LEMOS, BALTA Billy Consulting Unavailable THERESA GAMING DO Consulting Unavail daisha GUPTA MD, THUAN Anglin Consulting Unavailable SYLWIA LEMOS, DR GIL Admitting Unavailable SYLWIA LEMOS, DR GIL Attending Unavailable LIZET LEMOS, THUAN Covington Consulting Unavailable ANGELA MERA MD Primary Care Unavailable KELIN TEJADA DO Consulting Unique BALTA James MD Consulting Unavailable ANGELA MERA MD Primary Care Unavailable MALLORY JUDGE, KELIN Gar Attending Unique kelly Medications Current Medications Medication Drug Class(es) Dates Sig (Normalized) Sig (Original) 8 hr acetaminophen 650 mg extended release oral tablet (20 sources) Start: 12-04-2023 Tylenol 8 HR Arthritis Pain 650 mg oral tablet, extended release Dose : 1,300 mg = 2 tab(s), Oral, q8h, PRN as needed for pain, # 100 tab(s), 0 Refill(s) Start Date: 12/04/23 Status: Ordered Medication Dispense Status: Completed Quantity: 100.0 Unit: tab(s) Total Allowed Fills: 1 Fills Dispensed: 0 take 1 tablet by ashu th three times daily as needed acetaminophen (TYLENOL) 650 MG CR tablet Take 650 mg by mouth 3 times daily as needed. 0 Active allopurinol 300 mg oral tablet (20 sources) Xanthine Oxidase Inhibitor Start: 04-12-2023 allopurinol 300 mg oral tablet Dose : 300 mg = 1 tab(s), Oral, qDay, # 90 tab(s), 3 Refill(s), Pharmacy: [facility] #[id number], 172, cm, 05/01/24 9:59:00 EST, Height, kg, 05/01/24 9:59:00 EST, Dosing Weight Start Date: 05/09/24 Status: Ordered Medication Dispense Status: Completed Quantity: 90.0 Unit: tab(s) Total Allowed Fills: 4 Fills Dispensed: 0 Start: 01-05-2023 allopurinol 30 0 mg oral [...] mg PO DAILY April 12, 2023 1:00am [facility] [employer] Start: 01-05-2023 aspirin 81 mg oral delayed release tablet Dose : 81 mg = 1 tab(s), Oral, Daily, 0 Refill(s) Start Date: 01/05/23 Status: Ordered Medication Dispense Status: Completed Total Allowed Fills: 1 Fills Dispensed: 0 Start: 08-20-2007 take 1 tablet by ashu th once daily aspirin 81 mg EC tablet ONE BY MOUTH ONCE A DAY 0 08/20/2007 Active atorvastatin 20 mg oral tablet (20 sources) HMG-CoA Reductase Inhibitor Start: 04-12-2023 atorvastatin 20 mg o ral tablet Dose : 20 mg = 1 tab(s), Oral, qDay, # 90 tab(s), 3 Refill(s), Pharmacy: [facility], Pansinusitis Hyperuricemia, 171, cm, 09/12/24 15:10:00 EDT, Height, kg, 09/12/24 15:10:00 EDT, Dosing Weight Start Date: 10/01/24 Status: Ordered Medication Dispense Status: Completed Quantity: 90.0 Unit: tab(s) Total Allowed Fills: 4 Fills Dispensed: 0 Indications: Hyperuricemia without signs of inflammatory arthritis and tophaceous disease; Chronic pansinusitis; Start: 07-17-2011 End: 04-26-2022 take 1 tablet by mouth once daily atorvastatin (Lipitor) 20 mg tablet Take 1 tablet (20 mg total) by mouth 1 (one) time each day at the same time. 90 tablet 3 04/26/2021 04/26/2022 Active benzonatate 100 mg oral capsule (13 sources) Non-narcotic Antitussive Start: 10-08-2024 benzonatate 100 mg oral capsule Dose : 100 mg = 1 cap(s), Oral, q8h, PRN as needed for cough, # 60 cap(s), 1 Refill(s), Pharmacy: [facility], 171, cm, 09/12/24 15:10:00 EDT, Height, kg, 09/12/24 15:10:00 EDT, Dosing Weight Start Date: 10/08/24 Status: Ordered Medication Dispense Status: Completed Quantity: 60.0 Unit: cap(s) Total Allowed Fills: 2 Fills Dispensed: 0 Start: 04-23-2024 benzonatate 10 0 mg oral capsule Dose : 100 mg = 1 cap(s), Oral, q8h, PRN as needed for cough, # 60 cap(s), 1 Refill(s), [facility]: [facility] #[id number], 173, cm, 04/23/24 13:06:00 EST, Height, kg, [...] Breo Ellipta 100 mcg-25 mcg/inh inhalation powder (6 sources) Start: 01-25-2024 End: 01-19-2025 take 1 dose by inhalation once daily Breo Ellipta 100 mcg-25 mcg/inh inhalation powder Dose = 1 puff(s), Inhalation, Daily, # 1 EA, 11 Refill(s), Pharmacy: [facility], 173, cm, 01/25/24 9:05:00 EST, Height, kg, 01/25/24 9:05:00 EST, Dosing Weight Start Date: 01/25/24 Stop Date: 01/19/25 Status: Ordered Medication Dispense Status: Completed Quantity: 1.0 Unit: EA Total Allowed Fills: 12 Fills Dispensed: 0 Start: 01-25-2024 End: 01-19-2025 take 1 dose by inhalation once daily Breo Ellipta 100 mcg-25 mcg/inh inhalation powder Dose = 1 puff(s), Inhalation, Daily, # 1 EA, 11 Refill(s), Pharmacy: [facility], 173, cm, 01/25/24 9:05:00 EST, Height, kg, 01/25/24 9:05:00 EST, Dosing Weight Start Date: 01/25/24 Stop Date: 01/19/25 Status: Ordered Quantity: 1.0 Unit: EA Repeat number: 12 busPIRone hydrochloride 7.5 mg oral tablet (11 sources) Start: 04-21-2024 busPIRone 7.5 mg oral tablet Dose : 7.5 mg = 1 tab(s), Oral, BID, # 180 tab(s), 3 Refill(s), [facility]acy: [facility] #[id number], Anxiety, 173, cm, 01/25/24 9:05:00 EST, Height, kg, 01/25/24 9:05:00 EST, Dosing Weight Start Date: 04/21/24 Status: Ordered Medication Dispense Status: Completed Quantity: 180.0 Unit: tab(s) Total Allowed Fills: 4 Fills Dispensed: 0 Indications: Anxiety disorder, unspecified; Start: 09-11-2023 End: 11-20-2023 take 1 tablet by mouth twice daily Buspirone 7.5 mg tablet Active 7.5 mg PO TWICE A DAY September 11, 2023 12:00am calcium chloride 0.0014 meq/ml / potassium chloride 0.004 meq/ml / sodium chloride 0.103 meq/ml / sodium lactate 0.028 meq/ml injectable solution (1 source) Start: 02-19-2019 lactated ringe rs infusion cefuroxime 500 mg oral tablet (2 sources) Cephalosporin Antibacterial Start: 10-21-2024 End: 10-25-2024 cefuroxime 500 mg oral tablet Dose : 500 mg = 1 tab(s), Oral, BID, Begin on morning of 10/22, X 4 day(s), # 8 tab(s), 0 Refill(s), 10/25/24 10:19:00 AM EDT, Pharmacy: [id number], 172.7, cm, 10/19/24 20:04:00 EDT, Height, 88.6, kg, 10/19/24 20:04:00 EDT, Dosing Weight Start Date: 10/21/24 Stop Date: 10/25/24 Status: Ordered Medication Dispense Status: Completed Quantity: 8.0 Unit: tab(s) Total Allowed Fills: 1 Fills Dispensed: 0 colchicine 0.6 mg oral tablet (7 sources) Start: 10-31-2019 Colchicine (COLCRYS) 0.6 MG tablet Indications: Chronic gout of right foot, unspecified cause Take 1 tablet by mouth two times a day. Take 2 tablets at first sign of flare up then 1 tablet 1 hour later. Then bid 30 tablet 1 10/31/2019 Active Cyanocobalamin-Liver Extract tablet (1 source) Start: 10-19-2024 Cyanocobalamin -Live r Extract tablet Active 1 {tbl} PO TWICE A DAY October 19, 2024 12:00am docosahexaenoic acid 120 mg / eicosapentaenoic acid 180 mg oral capsule (8 sources) [place]-3 Fatty Ac ids (FISH OIL) 1000 MG CAPS Take 3,000 mg by mouth. 0 Active donepezil hydrochloride 10 mg oral tablet (17 sources) Start: 04-04-2023 End: 06-05-2025 donepezil 10 mg oral tablet Dose : 10 mg = 1 tab(s), Oral, qHS, # 90 tab(s), 3 Refill(s), Pharmacy: [facility], 172, cm, 06/10/24 10:06:00 EDT, Height, kg, 06/10/24 10:06:00 EDT, Dosing Weight Start Date: 06/10/24 Stop Date: 06/05/25 Status: Ordered Medication Dispense Status: Completed Quantity: 90.0 Unit: tab(s) Total Allowed Fills: 4 Fills Dispensed: 0 Start: 01-05-2023 donepezil 10 m g oral tablet Dose : 10 mg = 1 tab(s), Oral, qHS, # 90 tab(s), 0 Refill(s) Start Date: 01/05/23 Status: Ordered empagliflozin 10 mg oral tablet (12 sources) Sodium-Glucose Cotransporter 2 Inhibitor Start: 09-11-2023 End: 09-12-2023 Jardiance 10 mg oral tablet Dose : 10 mg = 1 tab(s), Oral, qAM, # 90 tab(s), 2 Refill(s), Pharmacy: [facility], 172, cm, 08/18/24 8:37:00 EDT, Height, kg, 08/18/24 8:37:00 EDT, Dosing Weight Start Date: 08/26/24 Status: Ordered Quantity: 90.0 Unit: tab(s) Repeat number: 3 Fish Oils (12 sources) Start: 01-05-2023 Fish Oil 1000 mg oral capsule Dose : 1,000 mg = 1 cap(s), Oral, BID, # 90 cap(s), 0 Refill(s) Start Date: 01/05/23 Status: Ordered Medication Dispense Status: Completed Quantity: 90.0 Unit: cap(s) Total Allowed Fills: 1 Fills Dispensed: 0 Start: 01-05-2023 Fish Oil 1000 mg oral [...] 10/12/23 10:07:00 AM EDT, [facility]acy: [facility] #[id number], UTI (urinary tract infection) Candidiasis, 173, cm, 10/05/23 9:26:00 EDT, Height, 96, kg, 10/05/23 9:26:00 EDT, Dosing Weight Start Date: 10/05/23 Stop Date: 10/12/23 Status: Ordered 30 actuat fluticasone furoate 0.1 mg/actuat / vilanterol 0.025 mg/actuat dry powder inhaler (4 sources) Corticosteroid, beta2-Adrenergic Agonist Start: 10-19-2024 Fluticasone Furoate-Vilanterol [Fluticasone Furoate 100 Mcg-Vilanterol 25 Mcg/Dose Inhalation Powder] (Fluticasone Furoate 100 Mcg-Vilanterol 25 ) 100-25 mcg/dose blister with device Active 1 NMA INHALATION DAILY October 19, 2024 12:00am Start: 12-12-2023 End: 10-19-2024 Fluticasone Furoate-Vilanter ol (Breo Ellipta) 200-25 mcg/dose blister with device Discontinued 1 NMA INHALATION daily December 12, 2023 12:00am October 19, 2024 7:24am Start: 12-12-2023 Fluticasone Fu roate-Vilanterol (Breo Ellipta) 200-25 mcg/dose blister with device Active 1 NMA INHALATION daily December 12, 2023 12:00am garlic preparation 580 mg oral capsule (18 sources) Non-Standardized Food Allergenic Extract Start: 10-19-2024 Garlic 580 mg capsule Active 48 mg PO TWICE A DAY October 19, 2024 12:00am Start: 11-29-2023 garlic oral ca psule 0 Refill(s) Start Date: 11/29/23 Status: Ordered Medication Dispense Status: Completed Total Allowed Fills: 1 Fills Dispensed: 0 Start: 11-29-2023 garlic oral ca psule 0 [...] 0 Active latanoprost 0.05 mg/ml ophthalmic solution (9 sources) Prostaglandin Analog Start: 09-18-[address] 0.005 % drops Active 1 NMA OPHTHALMIC AT BEDTIME September 18, 2024 12:00am Start: 05-01-2024 take 0.5 [IU] into t he eye(s) once daily at bedtime latanoprost 0.005% ophthalmic solution Dose = 1 drop(s), Eyes, both, qHS, # 2.5 mL, 0 Refill(s) Start Date: 05/01/24 Status: Ordered Medication Dispense Status: Completed Quantity: 2.5 Unit: mL Total Allowed Fills: 1 Fills Dispensed: 0 levoFLOXacin 750 mg oral tablet (1 source) Quinolone Antimicrobial Start: 08-05-2024 End: 08-15-2024 levoFLOXacin 750 mg oral tablet Dose : 750 mg = 1 tab(s), Oral, q24h, X 10 day(s), # 10 tab(s), 0 Refill(s), 08/15/24 5:13:00 PM EDT, [facility][id number], Right lower lobe pneumonia Wheezing, 172, cm, 08/05/24 16:23:00 EDT, Height, 87.2, kg, 08/05/24 16:23:00 EDT, Dosing Weight Start Date: 08/05/24 Stop Date: 08/15/24 Status: Ordered Quantity: 10.0 Unit: tab(s) Repeat number: 1 Indications: Pneumonia, unspecified organism; Wheezing; losartan potassium 25 mg oral tablet (20 sources) Angiotensin 2 Receptor Gerard Start: 05-22-2023 End: 05-22-2023 take 1 tablet by mouth once daily Losartan 25 mg tablet Active 25 mg PO DAILY 90 May 22, 2023 12:55pm Start: 05-22-2023 End: 05-22-2023 take 1 tablet by mouth once daily Losartan 50 mg tablet Discontinued 50 mg PO DAILY May 22, 2023 1:00am May 22, 2023 12:54pm Start: 05-18-2023 losartan 50 mg oral tablet Dose : 50 mg = 1 tab(s), Oral, qDay, # 30 tab(s), 5 Refill(s), [facility][id number], NSTEMI (non-ST elevated myocardial infarction) Influenza A, 173, cm, 05/18/23 10:42:00 EST, Height, kg, 05/18/23 10:42:00 EST, Dosing Weight Start Date: 05/18/23 Status: Ordered magnesium oxide 400 mg oral capsule (18 sources) Magnesium Oxide 400 MG CAPS Take by mouth. 0 Active memantine hydrochloride 5 mg oral tablet (17 sources) T-fiiqbb-K-aspartate Receptor Antagonist Start: 04-07-2023 memantine 5 mg oral tablet Dose : 5 mg = 1 tab(s), Oral, BID, # 180 tab(s), 0 Refill(s), [facility][id number], 172, cm, 08/05/24 16:23:00 EDT, Height, kg, 08/05/24 16:23:00 EDT, Dosing Weight Start Date: 08/06/24 Status: Ordered Medication Dispense Status: Completed Quantity: 180.0 Unit: tab(s) Total Allowed Fills: 1 Fills Dispensed: 0 Start: 01-05-2023 memantine 5 mg oral tablet Dose : 5 mg = 1 tab(s), Oral, BID, # 60 tab(s), 0 Refill(s) Start Date: 01/05/23 Status: Ordered Multiple Vitamins-Minerals (ZINC PO) (7 sources) Multiple [...] feet 0 Active omega-3 acid ethyl esters (correction) 1000 mg oral capsule (10 sources) [place]-3 Fatty Ac ids (FISH OIL) 1000 MG CAPS Take 3,000 mg by mouth. 0 Active Hkwjg-5j-Dks-Epa-Fish Oil ([place]-3 Fish Oil) 300-1,000 mg capsule (1 source) Start: take 3-300 capsules by mouth twice daily Gaatc-7j-Rqy-Epa-Fi sh Oil ([place]-3 Fish Oil) 300-1,000 mg capsule Active 2 NMA PO TWICE A DAY October 19, 2024 12:00am polyethylene glycol 3350 43110 mg powder for oral solution (18 sources) Osmotic Laxative Start: polyethylene glycol 3350 (MIRALAX) powder Per colonoscopy instructions 255 g 0 01/22/2019 Active pravastatin sodium 80 mg oral tablet (11 sources) HMG-CoA Reductase Inhibitor pravastatin (PRAVACHOL) 80 MG tablet Take 40 mg by mouth daily. 0 Active predniSONE 20 mg oral tablet (1 source) Start: End: predniSONE 20 mg oral tablet Dose : 60 mg = 3 tab(s), Oral, qDay, X 7 day(s), # 21 tab(s), 0 Refill(s), 08/12/24 5:13:00 PM EDT, [facility]acy: [facility] #[id number], Right lower lobe pneumonia Wheezing, 172, cm, 08/05/24 16:23:00 EDT, Height, kg, 08/05/24 16:23:00 EDT, Dosing Weight Start Date: 08/05/24 Stop Date: 08/12/24 Status: Ordered Quantity: 21.0 Unit: tab(s) Repeat number: 1 Indications: Pneumonia, unspecified organism; Wheezing; sodium fluoride 0.011 mg/mg toothpaste (1 source) Start: Fluoride (Sodium) 1.1 % gel Active 1 NMA PO AT BEDTIME October 19, 2024 12:00am sulfamethoxazole 800 mg / trimethoprim 160 mg oral tablet (6 sources) Dihydrofolate Reductase Inhibitor Antibacterial, Sulfonamide Antimicrobial Start: End: take 1 tablet by mouth twice daily Bactrim DS 800 mg-160 mg oral tablet Dose = 1 tab(s), Oral, BID, X 10 day(s), # 20 tab(s), 0 Refill(s), [id number], 173, cm, 10/05/23 9:26:00 EDT, Height, 96, [...] day(s), # 28 tab(s), 0 Refill(s), [facility][id number], 173, cm, 05/18/23 10:42:00 EST, Height, 91.4, kg, 05/18/23 10:42:00 EST, Dosing Weight Start Date: 05/18/23 Stop Date: 06/01/23 Status: Ordered tamsulosin hydrochloride 0.4 mg oral capsule (17 sources) alpha-Adrenergic Gerard Start: 02-15-2023 tamsu losin 0.4 mg oral capsule Dose : 0.4 mg = 1 cap(s), Oral, qDay, # 90 cap(s), 3 Refill(s), Pharmacy: [facility] #[id number], Cerumen impaction Urinary incontinence, 173, cm, 01/25/24 9:05:00 EST, Height, kg, 01/25/24 9:05:00 EST, Dosing Weight Start Date: 01/25/24 Status: Ordered Medication Dispense Status: Completed Quantity: 90.0 Unit: cap(s) Total Allowed Fills: 4 Fills Dispensed: 0 Indications: Unspecified urinary incontinence; Impacted cerumen, unspecified ear; Timolol (20 sources) beta-Adrenergic Gerard Start: 09-12-2024 timolo l (as maleate) 0.5% ophthalmic solution Dose = 1 drop(s), Eyes, both, BID, # 5 mL, 0 Refill(s) Start Date: 09/12/24 Status: Ordered Medication Dispense Status: Completed Quantity: 5.0 Unit: mL Total Allowed Fills: 1 Fills Dispensed: 0 Start: 04-12-2023 Timolol Maleat e 0.5 % drops Active 1 NMA OPHTHALMIC [...] 23, 2023 12:00am Vitamin B Complex 100 (8 sources) Start: 10-05-2023 Vitamin B Complex 100 See Instructions, 0 Refill(s) Start Date: 10/05/23 Status: Ordered Medication Dispense Status: Completed Total Allowed Fills: 1 Fills Dispensed: 0 Start: 10-05-2023 Vitamin B Comp dioni 100 See Instructions, 0 Refill(s) Start Date: 10/05/23 Status: Ordered Repeat number: 1 Start: 10-05-2023 Vitamin B Comp dioni 100 See Instructions, 0 Refill(s) Start Date: 10/05/23 Status: Ordered Vitamin B Complex tablet (3 sources) Start: 07-23-2023 Vitamin B Comp dioni [...] Drug Class(es) Dates Sig (Normalized) Sig (Original) [id number] 200 actuat albuterol 0.09 mg/actuat metered dose inhaler (5 sources) beta2-Adrenergic Agonist Start: 04-12-2023 End: 05-22-2023 [...] Plus High Protein) 0.08 gram-1.5 kcal/mL Liquid (5 sources) Start: 04-18-2023 End: 05-22-2023 Food Supplemt, [...] 2023 12:00am furosemide 20 mg oral tablet (9 sources) Loop Diuretic Start: 07-23-2023 End: 09-12-2023 [...] / losartan potassium 50 mg oral tablet (9 sources) Thiazide Diuretic, Angiotensin 2 Receptor Gerard [...] 90 tab(s), 1 Refill(s), [facility]: [facility] #[id number], 173, cm, 01/05/23 14:34:00 EDT, Height, kg, [...] 100 mL methylPREDNISolone 4 mg oral tablet (5 sources) Corticosteroid Start: 04-12-2023 End: 05-22-2023 Methylprednisolone 4 mg tablets,dose pack Discontinued 4 mg PO April 12, 2023 1:00am May 22, 2023 12:20pm steriod On Hold: metoprolol tartrate 25 mg oral tablet (20 sources) beta-Adrenergic Gerard Start: 12-12-2023 take 1 tablet by mouth twice daily Metoprolol Succinate 25 mg tablet extended release 24 hr Active 25 mg PO TWICE A DAY December 12, 2023 12:00am Start: 01-05-2023 End: 10-21-2024 Metoprolol Tartrate 25 mg or al tablet Start: 10/21/24 8:00:00 AM EDT, Dose = 25 mg, = 1 tab(s), Oral, Hold if SBP (mmHg) Start Date: 10/21/24 Stop Date: 10/21/24 Status: Completed Medication Dispense Status: Completed Total Allowed Fills: 1 Fills Dispensed: 0 Start: 07-29-2020 take 1 tablet by ashu twice daily Metoprolol Tartrate (LOPRESSOR) 25 MG tablet Take 1 tablet by mouth two times a day. 180 tablet 1 07/29/2020 Active Start: 01-26-2020 take 1 tablet by ashu twice daily Metoprolol Tartrate (LOPRESSOR) 25 MG tablet Take 1 tablet by mouth two times a day. 180 tablet 1 01/26/2020 Active Start: 08-04-2019 take 1 tablet by ashu twice daily Metoprolol Tartrate (LOPRESSOR) 25 MG tablet Take 1 tablet by mouth two times a day. 180 tablet 1 08/04/2019 Active Start: 03-05-2018 metoprolol tar trate (Lopressor) 50 mg tablet every 12 (twelve) hours. 0 03/05/2018 Active take 1 tablet by ashu twice daily Metoprolol Tartrate (LOPRESSOR) 50 MG tablet Take 50 mg by mouth two times a day. 0 Active take 1 tablet by ashu once daily Metoprolol Tartrate (LOPRESSOR) 50 MG tablet Take 50 mg by mouth daily. 0 Active potassium chloride 10 meq extended release oral tablet (5 sources) Start: 07-23-2023 End: 12-12-2023 take 1 tablet by mouth twice daily Potassium Chloride 10 mEq tablet extended release Discontinued 10 meq PO TWICE A DAY July 23, 2023 12:00am December 12, 2023 1:41pm Start: 06-29-2023 potassium chlo ride 10 mEq oral capsule, extended release Dose : 10 mEq = 1 cap(s), Oral, BID, take with food., # 60 cap(s), 0 Refill(s), Pharmacy: [facility] #[id number], Generalized edema, 173, cm, 06/29/23 15:13:00 EDT, Height, kg, 06/29/23 15:13:00 EDT, Dosing Weight Start Date: 06/29/23 Status: Ordered tiZANidine 2 mg oral tablet (4 sources) Central alpha-2 Adrenergic Agonist Start: 01-25-2024 End: 02-04-2024 tiZANidine 2 mg oral tablet Dose : 2 mg = 1 tab(s), Oral, q8h, PRN as needed for muscle spasm, # 30 tab(s), 0 Refill(s), Pharmacy: [facility] #[id number], Left lumbar radiculitis Hyperuricemia, 173, cm, 01/25/24 9:05:00 EST, Height, kg, 01/25/24 9:05:00 EST, Dosing Weight Start Date: 01/25/24 Stop Date: 02/04/24 Status: Ordered Quantity: 30.0 Unit: tab(s) Repeat number: 1 Indications: Radiculopathy, lumbar region; Hyperuricemia without signs of inflammatory arthritis and tophaceous disease; Problems Active Problems Problem Classification Problem Date Documented Date Episodic/Chronic Abdominal pain (1 source) Right lower quadrant pain; Translations: [Right lower quadrant pain] Onset: 10-31-2024 Episodic Acute and unspecified renal failure (9 sources) Acute renal failure syndrome; Translations: [Acute kidney failure, unspecified] Onset: 10-19-2024 04-15-2023 Episodic Acute myocardial infarction (10 sources) Myocardial infarction 05-18-2023 Chronic Anxiety disorders (4 sources) Anxiety disorder; Translations: [Anxiety disorder, unspecified] Onset: 10-19-2024 Chronic Asthma (9 sources) Asthma; Translations: [Unspecified asthma, uncomplicated] Onset: 10-19-2024 01-25-2024 Chronic Calculus of urinary tract (20 sources) Kidney stone; Translations: [Urinary bladder stone] Onset: 08-20-2007 03-18-2019 Episodic Cardiac dysrhythmias (7 sources) Paroxysmal supraventricular tachycardia; Translations: [Paroxysmal supraventricular tachycardia] 04-15-2023 Chronic Chronic kidney disease (17 sources) Chronic kidney disease stage 1; Translations: [Chronic kidney disease, stage 1] Onset: 05-06-2009 04-15-2021 Chronic Chronic kidney disease (1 source) Chronic kidney disease; Translations: [Chronic kidney disease, stage 3a] Onset: 10-27-2024 Chronic ulcer of skin (1 source) Chronic ulcer of lower extremity; Translations: [Non-pressure chronic ulcer of other part of right lower leg with fat layer exposed] Chronic Coagulation and hemorrhagic disorders (2 sources) Thrombocytopenic disorder; Translations: [Thrombocytopenia, unspecified] Onset: 10-19-2024 Chronic Coagulation and hemorrhagic disorders (2 sources) Senile purpura 08-29-2024 Episodic Congestive heart failure; nonhypertensive (20 sources) Congestive heart failure; Translations: [Heart failure with normal ejection fraction] Onset: 08-18-2024 06-21-2023 Chronic Coronary atherosclerosis and other heart disease (20 sources) Coronary arteriosclerosis; Translations: [Atherosclerotic heart disease of [place] coronary artery without angina pectoris] Onset: 06-06-2010 10-20-2019 Chronic Coronary atherosclerosis and other heart disease (1 source) Coronary angioplasty status; Translations: [Coronary angioplasty status] Onset: 09-18-2024 Episodic Delirium, dementia, and amnestic and other cognitive disorders (16 sources) Dementia; Translations: [Unspecified dementia without behavioral disturbance] Onset: 07-04-2023 06-12-2023 Chronic Disorders of lipid metabolism (20 sources) Mixed hyperlipidemia; Translations: [Mixed hyperlipidemia] Onset: 08-07-2012 03-18-2019 Chronic Essential hypertension (20 sources) Essential hypertension; Translations: [Essential (primary) hypertension] Onset: 08-20-2007 03-18-2019 Chronic Fluid and electrolyte disorders (3 sources) Dehydration; Translations: [Hyperkalemia] Onset: 10-27-2024 09-12-2024 Episodic Genitourinary congenital anomalies (1 source) 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; Translations: [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] Onset: 10-27-2024 Chronic Genitourinary symptoms and ill-defined conditions (15 sources) Urinary incontinence; Translations: [Unspecified urinary incontinence] Onset: 10-19-2024 02-15-2023 Chronic Genitourinary symptoms and ill-defined conditions (14 sources) Microscopic hematuria; Translations: [Abnormal urinalysis] Onset: [...] benign prostatic hypertrophy] Onset: 02-13-2018 02-13-2018 Chronic Hypertension with complications and secondary hypertension (4 sources) 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; Translations: [Hypertensive heart and chronic kidney disease with heart failure and stage 1 through stage 4 chronic kidney disease, or unspecified chronic kidney disease] Onset: 10-19-2024 Chronic Influenza (12 sources) Influenza due to Influenza A virus 05-18-2023 Episodic Malaise and fatigue (20 sources) Asthenia; Translations: [Fatigue] Onset: 08-06-2024 05-18-2023 Episodic Mycoses (15 sources) Candidiasis; Translations: [Histoplasmosis] 10-05-2023 Episodic Osteoarthritis (4 sources) Osteoarthritis of knee; Translations: [Osteoarthritis of knee, unspecified] Onset: 03-24-2008 04-15-2021 Chronic Other circulatory disease (12 sources) Low blood pressure 05-18-2023 Episodic Other connective tissue disease (6 sources) History of total knee arthroplasty; Translations: [History of total bilateral knee replacement] Onset: 03-18-2019 03-18-2019 Chronic Other connective tissue disease (4 sources) History of bilateral total knee replacement; Translations: [Presence of artificial knee joint, bilateral] Onset: 03-18-2019 03-18-2019 Chronic Other connective tissue disease (17 sources) Rhabdomyolysis; Translations: [Rhabdomyolysis] 04-12-2023 Episodic Other connective tissue disease (2 sources) Rhabdomyolysis; Translations: [Rhabdomyolysis] 04-18-2023 Episodic Other connective tissue disease (7 sources) Pain in lower limb 12-04-2023 Episodic Other diseases of kidney and ureters (1 source) Urinary tract obstruction; Translations: [Hydronephrosis with renal and ureteral calculous obstruction] Episodic Other diseases of kidney and ureters (3 sources) Hydronephrosis with renal and ureteral calculous obstruction; Translations: [Hydronephrosis with renal and ureteral calculous obstruction] Onset: 10-19-2024 Episodic Other diseases of veins and lymphatics (10 sources) Stasis dermatitis 06-29-2023 Episodic Other ear and sense organ disorders (14 sources) Impacted cerumen; Translations: [Impacted cerumen, unspecified ear] Onset: 10-19-2024 02-15-2023 Episodic Other ear and sense organ disorders (1 source) Impacted cerumen, unspecified ear; Translations: [Impacted cerumen, unspecified ear] Onset: 10-19-2024 Episodic Other hereditary and degenerative nervous system [...] Onset: 04-23-2006 04-15-2021 Chronic Other liver diseases (5 sources) Raised cardiac enzyme or marker; Translations: [Abnormal levels of other serum enzymes] 04-12-2023 Episodic Other liver diseases (2 sources) Abnormal levels of other serum enzymes; Translations: [Other nonspecific abnormal serum enzyme levels] 04-18-2023 Episodic Other lower respiratory disease (2 sources) Post-inflammatory pulmonary fibrosis; Translations: [Pulmonary fibrosis, unspecified] Onset: 02-28-2013 04-15-2021 Chronic Other lower respiratory disease (9 sources) Chronic cough; Translations: [Chronic cough] Onset: 04-30-2013 04-15-2021 Episodic Other lower respiratory disease (17 sources) Cough 05-14-2023 Episodic Other lower respiratory disease (11 sources) Dyspnea 06-21-2023 Episodic Other lower respiratory disease (4 sources) Dyspnea on exertion; Translations: [Other forms of dyspnea] 07-23-2023 Episodic Other lower respiratory disease (1 source) Other forms of dyspnea; Translations: [Other respiratory abnormalities] 07-23-2023 Episodic Other lower respiratory disease (6 sources) Wheezing 08-05-2024 Episodic Other lower respiratory disease (1 source) Wheezing; Translations: [Wheezing] Onset: 08-06-2024 Episodic Other non-traumatic joint disorders (15 sources) Hip pain 11-29-2023 Episodic Other nutritional; endocrine; and metabolic disorders (13 sources) Hyperuricemia 01-05-2023 Episodic Other nutritional; endocrine; and metabolic disorders (3 sources) Hyperuricemia without signs of inflammatory arthritis and tophaceous disease; Translations: [Hyperuricemia without signs of inflammatory arthritis and tophaceous disease] Onset: 02-28-2023 Episodic Other nutritional; endocrine; and metabolic disorders (1 source) Hyperuricemia without signs of inflammatory arthritis and tophaceous disease; Translations: [Hyperuricemia without signs of inflammatory arthritis and tophaceous disease] Onset: 10-19-2024 Episodic Other upper respiratory disease (12 sources) Allergic rhinitis due to pollen; Translations: [Allergic rhinitis due to pollen] Onset: 03-18-2019 03-18-2019 Chronic Other upper respiratory disease (13 sources) Allergic rhinitis 01-05-2023 Chronic Other upper respiratory disease (2 sources) Allergic rhinitis, unspecified; Translations: [Allergic rhinitis, unspecified] Onset: 02-28-2023 Chronic Other upper respiratory infections (18 sources) Chronic ethmoidal sinusitis; Translations: [Chronic ethmoidal sinusitis] Onset: 03-07-2013 04-15-2021 Chronic Peripheral and visceral atherosclerosis (1 source) Peripheral vascular disease, unspecified; Translations: [Peripheral vascular disease, unspecified] Chronic Pneumonia (except that caused by tuberculosis or sexually transmitted disease) (7 sources) Right lower zone pneumonia; Translations: [Pneumonia, unspecified organism] Onset: 08-06-2024 08-05-2024 Episodic Residual codes; unclassified (20 sources) Obstructive sleep apnea syndrome; Translations: [Obstructive sleep apnea (adult) (pediatric)] Onset: 09-03-2019 09-03-2019 Chronic Residual codes; unclassified (1 source) Obstructive sleep apnea (adult) (pediatric); Translations: [Obstructive sleep apnea (adult) (pediatric)] Onset: 10-19-2024 Chronic Residual codes; unclassified (13 sources) Poor short-term memory 01-05-2023 Episodic Residual codes; unclassified (11 sources) Edema, generalized 06-21-2023 Episodic Septicemia (except in labor) (1 source) Sepsis, unspecified organism; Translations: [Sepsis, unspecified organism] Onset: 10-27-2024 Episodic Spondylosis; intervertebral disc disorders; other back problems (20 sources) Low back pain; Translations: [Lumbar radiculitis] 01-25-2024 Episodic Unclassified (8 sources) Patient encounter status; Translations: [Screening for endocrine, metabolic and immunity disorder] 06-10-2024 Unclassified (2 sources) History of bilateral total knee replacement; Translations: [History of total bilateral knee replacement] Onset: 03-18-2019 03-18-2019 Unclassified (1 source) Encounter for screening for COVID-19; Translations: [Encounter for screening for COVID-19] Onset: 09-30-2021 Unclassified (2 sources) Serum albumin below reference range 08-29-2024 Unclassified (1 source) Cough, unspecified; Translations: [Cough, unspecified] Onset: 12-19-2023 Unclassified (1 source) Unspecified dementia, unspecified severity, with anxiety; Translations: [Unspecified dementia, unspecified severity, with anxiety] Onset: 10-19-2024 Urinary tract infections (16 sources) Urinary tract infectious disease; Translations: [Pyonephrosis ] Onset: 10-19-2024 05-18-2023 Episodic Viral infection (1 source) COVID-19; [...] (2 sources) Patient encounter status; Translations: [Other half-way (current) drug therapy] Onset: 02-28-2013 04-15-2021 Episodic Other and unspecified benign neoplasm (19 sources) History of polyp of colon; Translations: [Personal history of colonic polyps] Onset: 01-22-2019 01-22-2019 Episodic Other and unspecified benign neoplasm (2 sources) Hemangioma; Translations: [Hemangioma unspecified site] Onset: 09-24-2008 04-15-2021 Episodic Other skin disorders (14 sources) [...] Test Name Value Interpretation Reference Range Facility [facility] 11-05-2024 CK [Catalytic activity/Vol] 21 U/L Normal 7-185 [facility] Comment on above: Performed By: #### A ADAM, GFR, ADIFF, CBC, BMP #### [address] [address] CVFLURVon 11-05-2024 FLU A PCR Negative Normal Negative [facility] Comment on above: Result Comment: [place] [id number] Performed By: #### B MP, ADIFF, GFR, ANEU, CBC, RFP #### [address] [address] FLU B PCR Negative Normal Negative [facility] Comment on above: Result [place]: [place] [id number] Performed By: #### B MP, ADIFF, GFR, ANEU, CBC, RFP #### [address] [address] RSV PCR Negative Normal Negative [facility] Comment on above: Result Comment: [place] [id number] Performed By: #### B MP, ADIFF, GFR, ANEU, CBC, RFP #### [address] [address] SARS-CoV-2 (COVID-19) RNA RONIT+probe Ql (Unsp spec) Negative Normal Negative [facility] Comment on above: Result Comment: Note [place] [id number] Results from the Xpert Xpress SARS-CoV-2/Flu/RSV or Xpert Xpress SARS-CoV-2 only test should be correlated with the clinical history, epidemiological data, and other data available to the clinician evaluating the patient. Performance of the Xpert Xpress SARS-CoV-2/Flu/RSV or Xpert Xpress SARS-CoV-2 only test has only been established in nasopharyngeal swab specimens. Erroneous test results might occur from improper specimen collection; failure to follow the recommended sample collection, handling, and storage procedures; technical error; or sample mix-up.False negative results may occur if virus is present at levels below the analytical limit of detection. Viral nucleic acid may persist in vivo, independent of virus viability. Detection of analyte target(s) does not imply that the corresponding virus(es) are infectious or are the causative agents for clinical symptoms.Recent patient exposure to FluMist or other live attenuated influenza vaccines may cause inaccurate positive results. FDA Approved. Performed By: #### B MP, ADIFF, GFR, ANEU, CBC, RFP #### [address] [address] .Auto Diffon 11-04-2024 Basophil, Absolute 0.0 10 3/mcL Normal 0.0-0.3 [facility] Comment on above: Performed By: #### A ADAM, GFR, ADIFF, CBC, BMP #### [address] [address] Basophils/100 WBC (Bld) 0.5 % Normal 0.0-2.5 [facility] Comment on above: Performed By: #### A ADAM, GFR, ADIFF, CBC, BMP #### [address] [address] Eosinophil, Absolute 0.1 10 3/mcL Normal 0.0-0.7 [facility] Comment on above: Performed By: #### A ADAM, GFR, ADIFF, CBC, BMP #### [address] [address] Eosinophils/100 WBC (Bld) 1.6 % Normal 0.0-6.0 [facility] Comment on above: Performed By: #### A ADAM, GFR, ADIFF, CBC, BMP #### [address] [address] Lymphocyte, Absolute 0.6 10 3/mcL Low 0.9-4.3 [facility] Comment on above: Performed By: #### A ADAM, GFR, ADIFF, CBC, BMP #### [address] [address] Lymphocytes/100 WBC (Bld) 6.6 % Low 20.0-40.0 [facility] Comment on above: Performed By: #### A ADAM, GFR, ADIFF, CBC, BMP #### [address] [address] Monocyte, Absolute 0.6 10 3/mcL Normal 0.1-1.4 [facility] Comment on above: Performed By: #### A ADAM, GFR, ADIFF, CBC, BMP #### [address] [address] Monocytes/100 WBC (Bld) 6.0 % Normal 2.0-13.0 [facility] Comment on above: Performed By: #### A ADAM, GFR, ADIFF, CBC, BMP #### [address] [address] Neutrophils/100 WBC (Bld) 85.3 % High 50.0-75.0 [facility] Comment on above: Performed By: #### A ADAM, GFR, ADIFF, CBC, BMP #### [address] [address] .GFRon 11-04-2024 Estimated Glomerular Filtration Rate 54 ml/min/1.73sqm Normal [facility] Comment on above: Result Comment: Stages of [...] calculate the eGFR results. Performed By: #### B MP, ADIFF, GFR, ANEU, CBC, RFP #### [address] [address] .NEUABSon 11-04-2024 Neutrophil, Absolute 7.9 10 3/mcL Normal 2.3-8.1 [facility] Comment on above: Performed By: #### A ADAM, GFR, ADIFF, CBC, BMP #### [address] [address] BMPon 11-04-2024 BUN/Creatinine Ratio 25.4 ratio High 10.0-22.0 [facility] Comment on above: Performed By: #### B MP, ADIFF, GFR, ANEU, CBC, RFP #### [address] [address] Calcium [Mass/Vol] 9.7 mg/dL Normal 8.7-10.4 [facility] Comment on above: Performed By: #### B MP, ADIFF, GFR, ANEU, CBC, RFP #### [address] [address] Chloride [Moles/Vol] 103 mmol/L Normal 98-110 [facility] Comment on above: Performed By: #### B MP, ADIFF, GFR, ANEU, CBC, RFP #### [address] [address] CO2 [Moles/Vol] 30 mmol/L Normal 22-32 [facility] Comment on above: Performed By: #### B MP, ADIFF, GFR, ANEU, CBC, RFP #### [place] [id number] Creatinine [Mass/Vol] 1.34 mg/dL Normal 0.60-1.40 [facility] Comment on above: Result Comment: Test ing performed on Surfkitchen analyzer using enzymatic creatinine methodology. Performed By: #### B MP, ADIFF, GFR, ANEU, CBC, RFP #### [place] [address] Electrolyte Balance 11.0 mEq/L Normal 4.0-15.0 [facility] Comment on above: Performed By: #### B MP, ADIFF, GFR, ANEU, CBC, RFP #### [place] [address] Glucose [Mass/Vol] 109 mg/dL Normal 82-115 [facility] Comment on above: Performed By: #### B MP, ADIFF, GFR, ANEU, CBC, RFP #### [place] [address] Potassium [Moles/Vol] 4.5 mmol/L Normal 3.5-5.0 [facility] Comment on above: Performed By: #### B MP, ADIFF, GFR, ANEU, CBC, RFP #### [place] [id number] Sodium [Moles/Vol] 144 mmol/L Normal 136-145 [facility] Comment on above: Performed By: #### B MP, ADIFF, GFR, ANEU, CBC, RFP #### [place] [id number] Urea nitrogen [Mass/Vol] 34.0 mg/dL High 8.0-22.0 [facility] Comment on above: Performed By: #### B MP, ADIFF, GFR, ANEU, CBC, RFP #### [address] [address] CBCon 11-04-2024 Erythrocyte distribution width (RBC) [Ratio] 14.4 % Normal 11.5-15.5 [facility] Comment on above: Performed By: #### A ADAM, GFR, ADIFF, CBC, BMP #### [place] [address] Hematocrit (Bld) [Volume fraction] 38.1 % Low 40.0-52.0 [facility] Comment on above: Performed By: #### A ADAM, GFR, ADIFF, CBC, BMP #### [place] [address] Hgb 12.5 G/dL Low 13.0-17.5 [facility] Comment on above: Performed By: #### A ADAM, GFR, ADIFF, CBC, BMP #### [place] [address] MCH (RBC) [Entitic mass] 34.2 pg High 27.0-33.0 [facility] Comment on above: Performed By: #### A ADAM, GFR, ADIFF, CBC, BMP #### [place] [address] MCHC 32.8 G/dL Normal 32.0-36.0 [facility] Comment on above: Performed By: #### A ADAM, GFR, ADIFF, CBC, BMP #### [place] [address] MCV (RBC) [Entitic vol] 104.4 fL High 81.0-100.0 [facility] Comment on above: Performed By: #### A ADAM, GFR, ADIFF, CBC, BMP #### [place] [address] Platelet 401 10 3/mcL Normal 150-450 [facility] Comment on above: Performed By: #### A ADAM, GFR, ADIFF, CBC, BMP #### [place] [address] Platelet mean volume (Bld) [Entitic vol] 7.4 fL Normal 6.4-10.5 [facility] Comment on above: Performed By: #### A ADAM, GFR, ADIFF, CBC, BMP #### [place] [address] RBC 3.65 10 6/mcL Low 4.50-6.00 [facility] Comment on above: Performed By: #### A ADAM, GFR, ADIFF, CBC, BMP #### [address] [address] WBC 9.3 10 3/mcL Normal 4.5-10.8 [facility] Comment on above: Performed By: #### A ADAM, GFR, ADIFF, CBC, BMP #### [address] [address] .Auto Diffon 11-03-2024 Basophil, Absolute 0.0 10 3/mcL Normal 0.0-0.3 [facility] Comment on above: Performed By: #### A ADAM, GFR, ADIFF, CBC, BMP #### [address] [address] Basophils/100 WBC (Bld) 0.3 % Normal 0.0-2.5 [facility] Comment on above: Performed By: #### A ADAM, GFR, ADIFF, CBC, BMP #### [address] [address] Eosinophil, Absolute 0.1 10 3/mcL Normal 0.0-0.7 [facility] Comment on above: Performed By: #### A ADAM, GFR, ADIFF, CBC, BMP #### [address] [address] Eosinophils/100 WBC (Bld) 1.6 % Normal 0.0-6.0 [facility] Comment on above: Performed By: #### A ADAM, GFR, ADIFF, CBC, BMP #### [address] [address] Lymphocyte, Absolute 0.6 10 3/mcL Low 0.9-4.3 [facility] Comment on above: Performed By: #### A ADAM, GFR, ADIFF, CBC, BMP #### [address] [address] Lymphocytes/100 WBC (Bld) 6.4 % Low 20.0-40.0 [facility] Comment on above: Performed By: #### A ADAM, GFR, ADIFF, CBC, BMP #### [address] [address] Monocyte, Absolute 0.4 10 3/mcL Normal 0.1-1.4 [facility] Comment on above: Performed By: #### A ADAM, GFR, ADIFF, CBC, BMP #### [address] [address] Monocytes/100 WBC (Bld) 4.6 % Normal 2.0-13.0 [facility] Comment on above: Performed By: #### A ADAM, GFR, ADIFF, CBC, BMP #### [address] [address] Neutrophils/100 WBC (Bld) 87.1 % High 50.0-75.0 [facility] Comment on above: Performed By: #### A ADAM, GFR, ADIFF, CBC, BMP #### [address] [address] .GFRon 11-03-2024 Estimated Glomerular Filtration Rate 52 ml/min/1.73sqm Normal [facility] Comment on above: Result Comment: Stages of [...] calculate the eGFR results. Performed By: #### A ADAM, GFR, ADIFF, CBC, BMP #### [address] [address] .NEUABSon 11-03-2024 Neutrophil, Absolute 7.9 10 3/mcL Normal 2.3-8.1 [facility] Comment on above: Performed By: #### A ADAM, GFR, ADIFF, CBC, BMP #### [address] [address] CBCon 11-03-2024 Erythrocyte distribution width (RBC) [Ratio] 14.2 % Normal 11.5-15.5 [facility] Comment on above: Performed By: #### A ADAM, GFR, ADIFF, CBC, BMP #### [place] [address] Hematocrit (Bld) [Volume fraction] 38.5 % Low 40.0-52.0 [facility] Comment on above: Performed By: #### A ADAM, GFR, ADIFF, CBC, BMP #### [place] [address] Hgb 12.8 G/dL Low 13.0-17.5 [facility] Comment on above: Performed By: #### A ADAM, GFR, ADIFF, CBC, BMP #### [place] [id number] MCH (RBC) [Entitic mass] 34.9 pg High 27.0-33.0 [facility] Comment on above: Performed By: #### A ADAM, GFR, ADIFF, CBC, BMP #### [place] [address] MCHC 33.3 G/dL Normal 32.0-36.0 [facility] Comment on above: Performed By: #### A ADAM, GFR, ADIFF, CBC, BMP #### [place] [address] MCV (RBC) [Entitic vol] 104.9 fL High 81.0-100.0 [facility] Comment on above: Performed By: #### A ADAM, GFR, ADIFF, CBC, BMP #### [place] [address] Platelet 378 10 3/mcL Normal 150-450 [facility] Comment on above: Performed By: #### A ADAM, GFR, ADIFF, CBC, BMP #### [place] [id number] Platelet mean volume (Bld) [Entitic vol] 7.5 fL Normal 6.4-10.5 [facility] Comment on above: Performed By: #### A ADAM, GFR, ADIFF, CBC, BMP #### [address] [address] RBC 3.67 10 6/mcL Low 4.50-6.00 [facility] Comment on above: Performed By: #### A ADAM, GFR, ADIFF, CBC, BMP #### [place] [address] WBC 9.1 10 3/mcL Normal 4.5-10.8 [facility] Comment on above: Performed By: #### A ADAM, GFR, ADIFF, CBC, BMP #### [place] [address] CMPon 11-03-2024 Albumin Level 2.5 G/dL Low 3.2-4.8 [facility] Comment on above: Performed By: #### A ADAM, GFR, ADIFF, CBC, BMP #### [place] [address] Albumin/Globulin [Mass ratio] 0.5 {ratio} Low 0.9-1.6 [facility] Comment on above: Performed By: #### A ADAM, GFR, ADIFF, CBC, BMP #### [address] [address] ALP [Catalytic activity/Vol] 69 U/L Normal 38-126 [facility] Comment on above: Performed By: #### A ADAM, GFR, ADIFF, CBC, BMP #### [place] [address] ALT [Catalytic activity/Vol] 40 U/L Normal 12-55 [facility] Comment on above: Performed By: #### A ADAM, GFR, ADIFF, CBC, BMP #### [place] [address] AST [Catalytic activity/Vol] 56 U/L High 8-34 [facility] Comment on above: Performed By: #### A ADAM, GFR, ADIFF, CBC, BMP #### [place] [address] Bili Total 0.60 mg/dL Normal 0.20-1.20 [facility] Comment on above: Result Comment: Use of this assay is not recommended for patients undergoing treatment with eltrombopag due to the potential for falsely elevated results. Performed By: #### A ADAM, GFR, ADIFF, CBC, BMP #### [place] [address] BUN/Creatinine Ratio 23.7 ratio High 10.0-22.0 [facility] Comment on above: Performed By: #### A ADAM, GFR, ADIFF, CBC, BMP #### [place] [id number] Calcium [Mass/Vol] 9.7 mg/dL Normal 8.7-10.4 [facility] Comment on above: Performed By: #### A ADAM, GFR, ADIFF, CBC, BMP #### [place] [address] Chloride [Moles/Vol] 105 mmol/L Normal 98-110 [facility] Comment on above: Performed By: #### A ADAM, GFR, ADIFF, CBC, BMP #### [place] [address] CO2 [Moles/Vol] 30 mmol/L Normal 22-32 [facility] Comment on above: Performed By: #### A ADAM, GFR, ADIFF, CBC, BMP #### [place] [address] Creatinine [Mass/Vol] 1.39 mg/dL Normal 0.60-1.40 [facility] Comment on above: Result Comment: Test ing performed on Surfkitchen analyzer using enzymatic creatinine methodology. Performed By: #### A ADAM, GFR, ADIFF, CBC, BMP #### [place] [address] Electrolyte Balance 8.0 mEq/L Normal 4.0-15.0 [facility] Comment on above: Performed By: #### A ADAM, GFR, ADIFF, CBC, BMP #### [place] [id number] Globulin 4.9 G/dL High 2.5-4.2 [facility] Comment on above: Performed By: #### A ADAM, GFR, ADIFF, CBC, BMP #### [place] [id number] Glucose [Mass/Vol] 132 mg/dL High 82-115 [facility] [facility] Comment on above: Performed By: #### A ADAM, GFR, ADIFF, CBC, BMP #### [address] [address] Potassium [Moles/Vol] 4.5 mmol/L Normal 3.5-5.0 [facility] Comment on above: Performed By: #### A ADAM, GFR, ADIFF, CBC, BMP #### [address] [address] Sodium [Moles/Vol] 143 mmol/L Normal 136-145 [facility] MAIN Comment on above: Performed By: #### A ADAM, GFR, ADIFF, CBC, BMP #### [place] [address] Total Protein 7.4 G/dL Normal 5.7-8.2 [facility] MAIN Comment on above: Performed By: #### A ADAM, GFR, ADIFF, CBC, BMP #### [place] [id number] Urea nitrogen [Mass/Vol] 33.0 mg/dL High 8.0-22.0 [facility] MAIN Comment on above: Performed By: #### A ADAM, GFR, ADIFF, CBC, BMP #### [address] [address] MGon 11-03-2024 Magnesium [Mass/Vol] 1.8 mg/dL Normal 1.6-2.4 [facility] MAIN Comment on above: Performed By: #### A ADAM, GFR, ADIFF, CBC, BMP #### [place] [id number] CT ABDOMEN/PELVIS W/O CONTRA STon 11-02-2024 CT ABDOMEN/PELVIS W/O CONTRAST ORIGINAL HISTORY: Pyelonephritis COMPARISON: 6 days previously TECHNIQUE: CT of the abdomen and pelvis with sagittal and coronal reconstructions. This exam was performed according to our departmental dose optimization program, and includes the following measures where applicable: automated exposure control, adjustment of the mAs and/or kVp according to patient size and/or exam, and an iterative reconstruction algorithm. FINDINGS: There is a right double-J stent. There is at most mild hydronephrosis. There are multiple right renal calcifications. There is a complex cyst in the posterolateral right kidney. There is a large right renal cyst. There is a smaller left renal cyst. The gallbladder is prominently distended. There are calcified granulomata in the spleen. The remaining abdominal organs are unremarkable in appearance. Bowel is poorly evaluated in the absence of oral contrast. There is diverticulosis. A normal appendix is identified. There is no free fluid. There is a right inguinal hernia containing a loop of distal small bowel. IMPRESSION: Improved right hydronephrosis. Otherwise no significant change. Interpreted by: Nakul Duran MD Preliminary Report By: Nakul Duran MD Electronically signed By Nakul Duran MD Dictated Date: 11/02/2024 2:48:05 PM Prelim Date: 11/02/2024 2:51:31 PM Sign Date: 11/02/2024 2:51:31 PM Ordering Provider: WHIT Rodrigez [facility] MAIN .Auto Diffon 11-01-2024 Basophil, Absolute 0.0 10 3/mcL Normal 0.0-0.3 [facility] MAIN Comment on above: Performed By: #### B MP, ADIFF, GFR, ANEU, CBC, RFP #### [address] [address] Basophils/100 WBC (Bld) 0.3 % Normal 0.0-2.5 [facility] MAIN Comment on above: Performed By: #### B MP, ADIFF, GFR, ANEU, CBC, RFP #### [address] [address] Eosinophil, Absolute 0.1 10 3/mcL Normal 0.0-0.7 [facility] MAIN Comment on above: Performed By: #### B MP, ADIFF, GFR, ANEU, CBC, RFP #### [address] [address] Eosinophils/100 WBC (Bld) 1.3 % Normal 0.0-6.0 [facility] MAIN Comment on above: Performed By: #### B MP, ADIFF, GFR, ANEU, CBC, RFP #### [address] [address] Lymphocyte, Absolute 0.5 10 3/mcL Low 0.9-4.3 [facility] MAIN Comment on above: Performed By: #### B MP, ADIFF, GFR, ANEU, CBC, RFP #### [place] [id number] [place] [address] Lymphocytes/100 WBC (Bld) 4.9 % Low 20.0-40.0 [facility] MAIN Comment on above: Performed By: #### B MP, ADIFF, GFR, ANEU, CBC, RFP #### [place] [id number] [place] [address] Monocyte, Absolute 0.7 10 3/mcL Normal 0.1-1.4 [facility] MAIN Comment on above: Performed By: #### B MP, ADIFF, GFR, ANEU, CBC, RFP #### [address] [address] Monocytes/100 WBC (Bld) 7.1 % Normal 2.0-13.0 [facility] MAIN Comment on above: Performed By: #### B MP, ADIFF, GFR, ANEU, CBC, RFP #### [address] [address] Neutrophils/100 WBC (Bld) 86.4 % High 50.0-75.0 [facility] MAIN Comment on above: Performed By: #### B MP, ADIFF, GFR, ANEU, CBC, RFP #### [address] [address] .GFRon 11-01-2024 Estimated Glomerular Filtration Rate 52 ml/min/1.73sqm Normal [facility] MAIN Comment on above: Result Comment: Stages of [...] calculate the eGFR results. Performed By: #### B MP, ADIFF, GFR, ANEU, CBC, RFP #### [address] [address] .NEUABSon 11-01-2024 Neutrophil, Absolute 8.0 10 3/mcL Normal 2.3-8.1 [facility] MAIN Comment on above: Performed By: #### B MP, ADIFF, GFR, ANEU, CBC, RFP #### [address] [address] BMPon 11-01-2024 BUN/Creatinine Ratio 17.5 ratio Normal 10.0-22.0 [facility] MAIN Comment on above: Performed By: #### B MP, ADIFF, GFR, ANEU, CBC, RFP #### [place] [address] Calcium [Mass/Vol] 8.9 mg/dL Normal 8.7-10.4 [facility] MAIN Comment on above: Performed By: #### B MP, ADIFF, GFR, ANEU, CBC, RFP #### [place] [address] Chloride [Moles/Vol] 106 mmol/L Normal 98-110 [facility] MAIN Comment on above: Performed By: #### B MP, ADIFF, GFR, ANEU, CBC, RFP #### [place] [address] CO2 [Moles/Vol] 25 mmol/L Normal 22-32 [facility] MAIN Comment on above: Performed By: #### B MP, ADIFF, GFR, ANEU, CBC, RFP #### [address] [address] Creatinine [Mass/Vol] 1.37 mg/dL Normal 0.60-1.40 [facility] MAIN Comment on above: Result Comment: Test ing performed on Surfkitchen analyzer using enzymatic creatinine methodology. Performed By: #### B MP, ADIFF, GFR, ANEU, CBC, RFP #### [place] [address] Electrolyte Balance 12.0 mEq/L Normal 4.0-15.0 [facility] MAIN Comment on above: Performed By: #### B MP, ADIFF, GFR, ANEU, CBC, RFP #### [place] [id number] Glucose [Mass/Vol] 94 mg/dL Normal 82-115 [facility] MAIN Comment on above: Performed By: #### B MP, ADIFF, GFR, ANEU, CBC, RFP #### [place] [id number] Potassium [Moles/Vol] 4.5 mmol/L Normal 3.5-5.0 [facility] MAIN Comment on above: Performed By: #### B MP, ADIFF, GFR, ANEU, CBC, RFP #### [place] [id number] Sodium [Moles/Vol] 143 mmol/L Normal 136-145 [facility] MAIN Comment on above: Performed By: #### B MP, ADIFF, GFR, ANEU, CBC, RFP #### [place] [address] Urea nitrogen [Mass/Vol] 24.0 mg/dL High 8.0-22.0 [facility] MAIN Comment on above: Performed By: #### B MP, ADIFF, GFR, ANEU, CBC, RFP #### [place] [id number] CBCon 11-01-2024 Erythrocyte distribution width (RBC) [Ratio] 14.4 % Normal 11.5-15.5 [facility] MAIN Comment on above: Performed By: #### B MP, ADIFF, GFR, ANEU, CBC, RFP #### [place] [address] Hematocrit (Bld) [Volume fraction] 38.6 % Low 40.0-52.0 [facility] MAIN Comment on above: Performed By: #### B MP, ADIFF, GFR, ANEU, CBC, RFP #### [place] [address] Hgb 13.1 G/dL Normal 13.0-17.5 [facility] MAIN Comment on above: Performed By: #### B MP, ADIFF, GFR, ANEU, CBC, RFP #### [address] [address] MCH (RBC) [Entitic mass] 35.4 pg High 27.0-33.0 [facility] MAIN Comment on above: Performed By: #### B MP, ADIFF, GFR, ANEU, CBC, RFP #### [place] [address] MCHC 33.9 G/dL Normal 32.0-36.0 [facility] MAIN Comment on above: Performed By: #### B MP, ADIFF, GFR, ANEU, CBC, RFP #### [place] [address] MCV (RBC) [Entitic vol] 104.6 fL High 81.0-100.0 [facility] MAIN Comment on above: Performed By: #### B MP, ADIFF, GFR, ANEU, CBC, RFP #### [place] [address] Platelet 263 10 3/mcL Normal 150-450 [facility] MAIN Comment on above: Performed By: #### B MP, ADIFF, GFR, ANEU, CBC, RFP #### [place] [address] Platelet mean volume (Bld) [Entitic vol] 7.2 fL Normal 6.4-10.5 [facility] MAIN Comment on above: Performed By: #### B MP, ADIFF, GFR, ANEU, CBC, RFP #### [place] [address] RBC 3.69 10 6/mcL Low 4.50-6.00 [facility] MAIN Comment on above: Performed By: #### B MP, ADIFF, GFR, ANEU, CBC, RFP #### [place] [address] WBC 9.3 10 3/mcL Normal 4.5-10.8 [facility] MAIN Comment on above: Performed By: #### B MP, ADIFF, GFR, ANEU, CBC, RFP #### [place] [address] .Auto Diffon 10-31-2024 Basophil, Absolute 0.0 10 3/mcL Normal 0.0-0.3 [facility] MAIN Comment on above: Performed By: #### A ADAM, GFR, ADIFF, CBC, BMP #### [address] [address] Basophils/100 WBC (Bld) 0.2 % Normal 0.0-2.5 [facility] MAIN Comment on above: Performed By: #### A ADAM, GFR, ADIFF, CBC, BMP #### [address] [address] Eosinophil, Absolute 0.2 10 3/mcL Normal 0.0-0.7 [facility] MAIN Comment on above: Performed By: #### A ADAM, GFR, ADIFF, CBC, BMP #### [address] [address] Eosinophils/100 WBC (Bld) 2.4 % Normal 0.0-6.0 [facility] MAIN Comment on above: Performed By: #### A ADAM, GFR, ADIFF, CBC, BMP #### [address] [address] Lymphocyte, Absolute 0.5 10 3/mcL Low 0.9-4.3 [facility] MAIN Comment on above: Performed By: #### A ADAM, GFR, ADIFF, CBC, BMP #### [address] [address] Lymphocytes/100 WBC (Bld) 4.9 % Low 20.0-40.0 [facility] MAIN Comment on above: Performed By: #### A ADAM, GFR, ADIFF, CBC, BMP #### [address] [address] Monocyte, Absolute 0.7 10 3/mcL Normal 0.1-1.4 [facility] MAIN Comment on above: Performed By: #### A ADAM, GFR, ADIFF, CBC, BMP #### [address] [address] Monocytes/100 WBC (Bld) 6.8 % Normal 2.0-13.0 [facility] MAIN Comment on above: Performed By: #### A ADAM, GFR, ADIFF, CBC, BMP #### [address] [address] Neutrophils/100 WBC (Bld) 85.7 % High 50.0-75.0 [facility] MAIN Comment on above: Performed By: #### A ADAM, GFR, ADIFF, CBC, BMP #### [address] [address] .GFRon 10-31-2024 Estimated Glomerular Filtration Rate 42 ml/min/1.73sqm Normal [facility] MAIN Comment on above: Result Comment: Stages of [...] calculate the eGFR results. Performed By: #### A ADAM, GFR, ADIFF, CBC, BMP #### [address] [address] .NEUABSon 10-31-2024 Neutrophil, Absolute 8.5 10 3/mcL High 2.3-8.1 [facility] MAIN Comment on above: Performed By: #### A ADAM, GFR, ADIFF, CBC, BMP #### [place] [id number] CBCon 10-31-2024 Erythrocyte distribution width (RBC) [Ratio] 14.2 % Normal 11.5-15.5 [facility] MAIN Comment on above: Performed By: #### B MP, ADIFF, GFR, ANEU, CBC, RFP #### [address] [address] Hematocrit (Bld) [Volume fraction] 34.3 % Low 40.0-52.0 [facility] MAIN Comment on above: Performed By: #### B MP, ADIFF, GFR, ANEU, CBC, RFP #### [address] [address] Hgb 11.5 G/dL Low 13.0-17.5 [facility] MAIN Comment on above: Performed By: #### B MP, ADIFF, GFR, ANEU, CBC, RFP #### [place] [address] MCH (RBC) [Entitic mass] 35.9 pg High 27.0-33.0 [facility] MAIN Comment on above: Performed By: #### B MP, ADIFF, GFR, ANEU, CBC, RFP #### [place] [address] MCHC 33.7 G/dL Normal 32.0-36.0 [facility] MAIN Comment on above: Performed By: #### B MP, ADIFF, GFR, ANEU, CBC, RFP #### [place] [address] MCV (RBC) [Entitic vol] 106.6 fL High 81.0-100.0 [facility] MAIN Comment on above: Performed By: #### B MP, ADIFF, GFR, ANEU, CBC, RFP #### [place] [address] Platelet 231 10 3/mcL Normal 150-450 [facility] MAIN Comment on above: Performed By: #### B MP, ADIFF, GFR, ANEU, CBC, RFP #### [place] [address] Platelet mean volume (Bld) [Entitic vol] 7.5 fL Normal 6.4-10.5 [facility] MAIN Comment on above: Performed By: #### B MP, ADIFF, GFR, ANEU, CBC, RFP #### [place] [address] RBC 3.21 10 6/mcL Low 4.50-6.00 [facility] MAIN Comment on above: Performed By: #### B MP, ADIFF, GFR, ANEU, CBC, RFP #### [place] [address] WBC 9.9 10 3/mcL Normal 4.5-10.8 [facility] MAIN Comment on above: Performed By: #### B MP, ADIFF, GFR, ANEU, CBC, RFP #### [place] [id number] CMPon 10-31-2024 Albumin Level 2.2 G/dL Low 3.2-4.8 [facility] MAIN Comment on above: Performed By: #### A ADAM, GFR, ADIFF, CBC, BMP #### [place] [address] Albumin/Globulin [Mass ratio] 0.6 {ratio} Low 0.9-1.6 [facility] MAIN Comment on above: Performed By: #### A ADAM, GFR, ADIFF, CBC, BMP #### [place] [address] ALP [Catalytic activity/Vol] 61 U/L Normal 38-126 [facility] MAIN Comment on above: Performed By: #### A ADAM, GFR, ADIFF, CBC, BMP #### [place] [address] ALT [Catalytic activity/Vol] 23 U/L Normal 12-55 [facility] MAIN Comment on above: Performed By: #### A ADAM, GFR, ADIFF, CBC, BMP #### [place] [address] AST [Catalytic activity/Vol] 31 U/L Normal 8-34 [facility] MAIN Comment on above: Performed By: #### A ADAM, GFR, ADIFF, CBC, BMP #### [place] [address] Bili Total 0.50 mg/dL Normal 0.20-1.20 [facility] MAIN Comment on above: Result Comment: Use of this assay is not recommended for patients undergoing treatment with eltrombopag due to the potential for falsely elevated results. Performed By: #### A ADAM, GFR, ADIFF, CBC, BMP #### [place] [address] BUN/Creatinine Ratio 20.1 ratio Normal 10.0-22.0 [facility] MAIN Comment on above: Performed By: #### A ADAM, GFR, ADIFF, CBC, BMP #### [address] [address] Calcium [Mass/Vol] 8.5 mg/dL Low 8.7-10.4 [facility] MAIN Comment on above: Performed By: #### A ADAM, GFR, ADIFF, CBC, BMP #### [address] [address] Chloride [Moles/Vol] 110 mmol/L Normal 98-110 [facility] MAIN Comment on above: Performed By: #### A ADAM, GFR, ADIFF, CBC, BMP #### [address] [address] CO2 [Moles/Vol] 26 mmol/L Normal 22-32 [facility] MAIN Comment on above: Performed By: #### A ADAM, GFR, ADIFF, CBC, BMP #### [address] [address] Creatinine [Mass/Vol] 1.64 mg/dL High 0.60-1.40 [facility] MAIN Comment on above: Result Comment: Test ing performed on Surfkitchen analyzer using enzymatic creatinine methodology. Performed By: #### A ADAM, GFR, ADIFF, CBC, BMP #### [address] [address] Electrolyte Balance 9.0 mEq/L Normal 4.0-15.0 [facility] MAIN Comment on above: Performed By: #### A ADAM, GFR, ADIFF, CBC, BMP #### [address] [address] Globulin 3.9 G/dL Normal 2.5-4.2 [facility] MAIN Comment on above: Performed By: #### A ADAM, GFR, ADIFF, CBC, BMP #### [address] [address] Glucose [Mass/Vol] 100 mg/dL Normal 82-115 [facility] MAIN Comment on above: Performed By: #### A ADAM, GFR, ADIFF, CBC, BMP #### [address] [address] Potassium [Moles/Vol] 4.7 mmol/L Normal 3.5-5.0 [facility] MAIN Comment on above: Performed By: #### A ADAM, GFR, ADIFF, CBC, BMP #### [address] [address] Sodium [Moles/Vol] 145 mmol/L Normal 136-145 [facility] MAIN Comment on above: Performed By: #### A ADAM, GFR, ADIFF, CBC, BMP #### [address] [address] Total Protein 6.1 G/dL Normal 5.7-8.2 [facility] MAIN Comment on above: Performed By: #### A ADAM, GFR, ADIFF, CBC, BMP #### [address] [address] Urea nitrogen [Mass/Vol] 33.0 mg/dL High 8.0-22.0 [facility] MAIN Comment on above: Performed By: #### A ADAM, GFR, ADIFF, CBC, BMP #### [address] [address] .Auto Diffon 10-30-2024 Basophil, Absolute 0.0 10 3/mcL Normal 0.0-0.3 [facility] MAIN Comment on above: Performed By: #### B MP, ADIFF, GFR, ANEU, CBC, RFP #### [address] [address] Basophils/100 WBC (Bld) 0.2 % Normal 0.0-2.5 [facility] MAIN Comment on above: Performed By: #### B MP, ADIFF, GFR, ANEU, CBC, RFP #### [address] [address] Eosinophil, Absolute 0.2 10 3/mcL Normal 0.0-0.7 [facility] MAIN Comment on above: Performed By: #### B MP, ADIFF, GFR, ANEU, CBC, RFP #### [address] [address] Eosinophils/100 WBC (Bld) 2.1 % Normal 0.0-6.0 [facility] MAIN Comment on above: Performed By: #### B MP, ADIFF, GFR, ANEU, CBC, RFP #### [address] [address] Lymphocyte, Absolute 0.4 10 3/mcL Low 0.9-4.3 [facility] MAIN Comment on above: Performed By: #### B MP, ADIFF, GFR, ANEU, CBC, RFP #### [facility] [address] [place] [address] Lymphocytes/100 WBC (Bld) 3.7 % Low 20.0-40.0 [facility] MAIN Comment on above: Performed By: #### B MP, ADIFF, GFR, ANEU, CBC, RFP #### [facility] [address] [place] [address] Monocyte, Absolute 0.6 10 3/mcL Normal 0.1-1.4 [facility] MAIN Comment on above: Performed By: #### B MP, ADIFF, GFR, ANEU, CBC, RFP #### [facility] [address] [place] [address] Monocytes/100 WBC (Bld) 5.6 % Normal 2.0-13.0 [facility] MAIN Comment on above: Performed By: #### B MP, ADIFF, GFR, ANEU, CBC, RFP #### [facility] [address] [place] [address] Neutrophils/100 WBC (Bld) 88.4 % High 50.0-75.0 [facility] MAIN Comment on above: Performed By: #### B MP, ADIFF, GFR, ANEU, CBC, RFP #### [facility] [address] [place] [address] .GFRon 10-30-2024 Estimated Glomerular Filtration Rate 32 ml/min/1.73sqm Normal [facility] MAIN Comment on above: Result Comment: Stages of [...] calculate the eGFR results. Performed By: #### B MP, ADIFF, GFR, ANEU, CBC, RFP #### [address] [address] .NEUABSon 10-30-2024 Neutrophil, Absolute 9.6 10 3/mcL High 2.3-8.1 [facility] MAIN Comment on above: Performed By: #### B MP, ADIFF, GFR, ANEU, CBC, RFP #### [address] [address] BMPon 10-30-2024 BUN/Creatinine Ratio 19.2 ratio Normal 10.0-22.0 [facility] MAIN Comment on above: Performed By: #### B MP, ADIFF, GFR, ANEU, CBC, RFP #### [place] [address] Calcium [Mass/Vol] 8.4 mg/dL Low 8.7-10.4 [facility] MAIN Comment on above: Performed By: #### B MP, ADIFF, GFR, ANEU, CBC, RFP #### [place] [address] Chloride [Moles/Vol] 113 mmol/L High 98-110 [facility] MAIN Comment on above: Performed By: #### B MP, ADIFF, GFR, ANEU, CBC, RFP #### [place] [address] CO2 [Moles/Vol] 26 mmol/L Normal 22-32 [facility] MAIN Comment on above: Performed By: #### B MP, ADIFF, GFR, ANEU, CBC, RFP #### [address] [address] Creatinine [Mass/Vol] 2.08 mg/dL High 0.60-1.40 [facility] MAIN Comment on above: Result Comment: Test ing performed on Surfkitchen analyzer using enzymatic creatinine methodology. Performed By: #### B MP, ADIFF, GFR, ANEU, CBC, RFP #### [place] [id number] Electrolyte Balance 8.0 mEq/L Normal 4.0-15.0 [facility] MAIN Comment on above: Performed By: #### B MP, ADIFF, GFR, ANEU, CBC, RFP #### [place] [id number] Glucose [Mass/Vol] 99 mg/dL Normal 82-115 [facility] MAIN Comment on above: Performed By: #### B MP, ADIFF, GFR, ANEU, CBC, RFP #### [place] [id number] Potassium [Moles/Vol] 4.8 mmol/L Normal 3.5-5.0 [facility] MAIN Comment on above: Performed By: #### B MP, ADIFF, GFR, ANEU, CBC, RFP #### [place] [id number] Sodium [Moles/Vol] 147 mmol/L High 136-145 [facility] MA[facility] Comment on above: Performed By: #### B MP, ADIFF, GFR, ANEU, CBC, RFP #### [place] [address] Urea nitrogen [Mass/Vol] 40.0 mg/dL High 8.0-22.0 [facility] MA[facility] Comment on above: Performed By: #### B MP, ADIFF, GFR, ANEU, CBC, RFP #### [address] [address] CBCon 10-30-2024 Erythrocyte distribution width (RBC) [Ratio] 14.5 % Normal 11.5-15.5 [facility] MA[facility] Comment on above: Performed By: #### B MP, ADIFF, GFR, ANEU, CBC, RFP #### [place] [id number] Hematocrit (Bld) [Volume fraction] 34.4 % Low 40.0-52.0 [facility] MA[facility] Comment on above: Performed By: #### B MP, ADIFF, GFR, ANEU, CBC, RFP #### [place] [id number] Hgb 11.5 G/dL Low 13.0-17.5 [facility] MAIN Comment on above: Performed By: #### B MP, ADIFF, GFR, ANEU, CBC, RFP #### [place] [address] MCH (RBC) [Entitic mass] 35.2 pg High 27.0-33.0 [facility] MA[facility] Comment on above: Performed By: #### B MP, ADIFF, GFR, ANEU, CBC, RFP #### [place] [address] MCHC 33.3 G/dL Normal 32.0-36.0 [facility] MA[facility] Comment on above: Performed By: #### B MP, ADIFF, GFR, ANEU, CBC, RFP #### [place] [address] MCV (RBC) [Entitic vol] 105.6 fL High 81.0-100.0 [facility] MAIN Comment on above: Performed By: #### B MP, ADIFF, GFR, ANEU, CBC, RFP #### [place] [address] Platelet 230 10 3/mcL Normal 150-450 [facility] MA[facility] Comment on above: Performed By: #### B MP, ADIFF, GFR, ANEU, CBC, RFP #### [place] [address] Platelet mean volume (Bld) [Entitic vol] 7.1 fL Normal 6.4-10.5 [facility] MA[facility] Comment on above: Performed By: #### B MP, ADIFF, GFR, ANEU, CBC, RFP #### [place] [address] RBC 3.26 10 6/mcL Low 4.50-6.00 [facility] Comment on above: Performed By: #### B MP, ADIFF, GFR, ANEU, CBC, RFP #### [place] [address] WBC 10.9 10 3/mcL High 4.5-10.8 [facility] Comment on above: Performed By: #### B MP, ADIFF, GFR, ANEU, CBC, RFP #### [place] [address] RFPon 10-30-2024 Albumin Level 2.2 G/dL Low 3.2-4.8 [facility] Comment on above: Performed By: #### B MP, ADIFF, GFR, ANEU, CBC, RFP #### [address] [address] Phosphate [Mass/Vol] 3.0 mg/dL Normal 2.4-5.1 [facility] Comment on above: Performed By: #### B MP, ADIFF, GFR, ANEU, CBC, RFP #### [address] [address] .Auto Diffon 10-29-2024 Basophil, Absolute 0.0 10 3/mcL Normal 0.0-0.3 [facility] Comment on above: Performed By: #### B MP, ADIFF, GFR, ANEU, CBC, RFP #### [address] [address] Basophils/100 WBC (Bld) 0.2 % Normal 0.0-2.5 [facility] Comment on above: Performed By: #### B MP, ADIFF, GFR, ANEU, CBC, RFP #### [address] [address] Eosinophil, Absolute 0.1 10 3/mcL Normal 0.0-0.7 [facility] Comment on above: Performed By: #### B MP, ADIFF, GFR, ANEU, CBC, RFP #### [address] [address] Eosinophils/100 WBC (Bld) 0.9 % Normal 0.0-6.0 [facility] Comment on above: Performed By: #### B MP, ADIFF, GFR, ANEU, CBC, RFP #### [address] [address] Lymphocyte, Absolute 0.5 10 3/mcL Low 0.9-4.3 [facility] Comment on above: Performed By: #### B MP, ADIFF, GFR, ANEU, CBC, RFP #### [address] [address] Lymphocytes/100 WBC (Bld) 3.6 % Low 20.0-40.0 [facility] Comment on above: Performed By: #### B MP, ADIFF, GFR, ANEU, CBC, RFP #### [address] [address] Monocyte, Absolute 1.1 10 3/mcL Normal 0.1-1.4 [facility] Comment on above: Performed By: #### B MP, ADIFF, GFR, ANEU, CBC, RFP #### [address] [address] Monocytes/100 WBC (Bld) 7.3 % Normal 2.0-13.0 [facility] MAIN Comment on above: Performed By: #### B MP, ADIFF, GFR, ANEU, CBC, RFP #### [address] [address] Neutrophils/100 WBC (Bld) 88.0 % High 50.0-75.0 [facility] MAIN Comment on above: Performed By: #### B MP, ADIFF, GFR, ANEU, CBC, RFP #### [place] [id number] .GFRon 10-29-2024 Estimated Glomerular Filtration Rate 17 ml/min/1.73sqm [facility] MAIN Comment on above: Result Comment: Stages of [...] calculate the eGFR results. Performed By: #### B MP, ADIFF, GFR, ANEU, CBC, RFP #### [address] [address] .NEUABSon 10-29-2024 Neutrophil, Absolute 12.8 10 3/mcL High 2.3-8.1 [facility] MA[facility] Comment on above: Performed By: #### B MP, ADIFF, GFR, ANEU, CBC, RFP #### [place] [address] BCIDon 10-29-2024 Acinetobacter norm-baumanii complex Not detected Normal Not Detected [facility] MAIN Comment on above: Performed By: #### B MP, ADIFF, GFR, ANEU, CBC, RFP #### [place] [address] Bacteroides fragilis Not detected Normal Not Detected [facility]IN Comment on above: Performed By: #### B MP, ADIFF, GFR, ANEU, CBC, RFP #### [place] [address] BCID Comment See Comment Normal [facility] MAIN Comment on above: Result Comment: Anti microbial resistance can occur via multiple mechanisms. A Not Detected result for antimicrobial resistance gene(s) does not indicate antimicrobial susceptibility. Culture identification and susceptibility results to follow. All BIOFIRE BCID2 Panel results are intended to be interpreted in conjunction with the Gram stain results. In some cases, the Gram stain result and the BIOFIRE BCID2 Panel result may be discrepant. In these cases, the BIOFIRE BCID2 Panel results should be confirmed by culture or other laboratory, epidemiological, or clinical findings. Blood culture media may contain non-viable organisms and/or nucleic acids that may lead to false positive BIOFIRE BCID2 Panel results. Typically, these false positives present with more than one positive result from the BIOFIRE BCID2 Panel. If BCID panel was negative (Not Detected) for all targets, this does not exclude a blood stream infection. Our blood culture system detected growth. Culture identification and susceptibility testing (if appropriate) to follow. Performed By: #### B MP, ADIFF, GFR, ANEU, CBC, RFP #### [place] [address] Zulema albicans Detected Abnormal Not Detected [facility] MAIN Comment on above: Performed By: #### B MP, ADIFF, GFR, ANEU, CBC, RFP #### [address] [address] Zulema auris Not detected Normal Not Detected [facility] MA[facility] Comment on above: Performed By: #### B MP, ADIFF, GFR, ANEU, CBC, RFP #### [place] [address] Zulema glabrata Not detected Normal Not Detected [facility] MAIN Comment on above: Performed By: #### B MP, ADIFF, GFR, ANEU, CBC, RFP #### [place] [address] Zulema krusei Not detected Normal Not Detected [facility] MAIN Comment on above: Performed By: #### B MP, ADIFF, GFR, ANEU, CBC, RFP #### [place] [address] Zulema parapsilosis Not detected Normal Not Detected [facility] Comment on above: Performed By: #### B MP, ADIFF, GFR, ANEU, CBC, RFP #### [place] [address] Zulema tropicalis Not detected Normal Not Detected [facility] MAIN Comment on above: Performed By: #### B MP, ADIFF, GFR, ANEU, CBC, RFP #### [place] [address] Cryptococcus neoformans-gattii Not detected Normal Not Detected [facility] Comment on above: Performed By: #### B MP, ADIFF, GFR, ANEU, CBC, RFP #### [place] [address] CTX-M (ESBL) Not Applicable Normal Not Detected [facility] MAIN Comment on above: Performed By: #### B MP, ADIFF, GFR, ANEU, CBC, RFP #### [place] [address] E. Coli Not detected Normal Not Detected [facility] Comment on above: Performed By: #### B MP, ADIFF, GFR, ANEU, CBC, RFP #### [place] [address] Enterobacter cloacae Complex Not detected Normal Not Detected [facility] Comment on above: Performed By: #### B MP, ADIFF, GFR, ANEU, CBC, RFP #### [place] [address] Enterobacterales Not detected Normal Not Detected [facility] MAIN Comment on above: Performed By: #### B MP, ADIFF, GFR, ANEU, CBC, RFP #### [place] [address] Enterococcus faecalis Not detected Normal Not Detected [facility] Comment on above: Performed By: #### B MP, ADIFF, GFR, ANEU, CBC, RFP #### [place] [address] Enterococcus faecium Not detected Normal Not Detected [facility] Comment on above: Performed By: #### B MP, ADIFF, GFR, ANEU, CBC, RFP #### [place] [address] Haemophilus influenzae Not detected Normal Not Detecte [facility] MAIN Comment on above: Performed By: #### B MP, ADIFF, GFR, ANEU, CBC, RFP #### [place] [address] IMP (Carbapenemase) Not Applicable Normal Not Detected [facility] Comment on above: Performed By: #### B MP, ADIFF, GFR, ANEU, CBC, RFP #### [place] [address] Klebsiella aerogenes Not detected Normal Not Detected [facility] Comment on above: Performed By: #### B MP, ADIFF, GFR, ANEU, CBC, RFP #### [place] [address] Klebsiella oxytoca Not detected Normal Not Detected [facility] MAIN Comment on above: Performed By: #### B MP, ADIFF, GFR, ANEU, CBC, RFP #### [place] [address] Klebsiella pneumoniae group Not detected Normal Not Detected [facility] MA[facility] Comment on above: Performed By: #### B MP, ADIFF, GFR, ANEU, CBC, RFP #### [place] [address] KPC (Carbapenemase) Not Applicable Normal Not Detected [facility] MA[facility] Comment on above: Performed By: #### B MP, ADIFF, GFR, ANEU, CBC, RFP #### [place] [address] Listeria monocytogenes Not detected Normal Not Detecte [facility] MAIN Comment on above: Performed By: #### B MP, ADIFF, GFR, ANEU, CBC, RFP #### [place] [address] MCR-1 (Colistin Resistance) Not Applicable Normal Not Detected [facility] MA[facility] Comment on above: Performed By: #### B MP, ADIFF, GFR, ANEU, CBC, RFP #### [place] [address] Mec A/C Not Applicable Normal Not Detected [facility] MAIN Comment on above: Performed By: #### B MP, ADIFF, GFR, ANEU, CBC, RFP #### [place] [address] Mec A/C-MREJ (MRSA) Not Applicable Normal Not Detected [facility] MAIN Comment on above: Performed By: #### B MP, ADIFF, GFR, ANEU, CBC, RFP #### [place] [address] NDM (Carbapenemase) Not Applicable Normal Not Detected [facility] MAIN Comment on above: Performed By: #### B MP, ADIFF, GFR, ANEU, CBC, RFP #### [place] [address] Neisseria meningitidis (Encapsalated) Not detected Normal Not Detected [facility] MAIN Comment on above: Performed By: #### B MP, ADIFF, GFR, ANEU, CBC, RFP #### [place] [address] OXA-48 like (Carbapenemase) Not Applicable Normal Not Detected [facility] MA[facility] Comment on above: Performed By: #### B MP, ADIFF, GFR, ANEU, CBC, RFP #### [place] [address] Proteus Not detected Normal Not Detected [facility] MAIN Comment on above: Performed By: #### B MP, ADIFF, GFR, ANEU, CBC, RFP #### [place] [address] Pseudomonas aeruginosa Not detected Normal Not Detecte [facility] MAIN Comment on above: Performed By: #### B MP, ADIFF, GFR, ANEU, CBC, RFP #### [place] [address] S. agalactiae Org specific cx Ql (Vag fld) Not detected Normal Not Detected [facility] MAIN Comment on above: Performed By: #### B MP, ADIFF, GFR, ANEU, CBC, RFP #### [place] [address] Salmonella species Not detected Normal Not Detected [facility] MAIN Comment on above: Performed By: #### B MP, ADIFF, GFR, ANEU, CBC, RFP #### [place] [address] Serratia marcescens Not detected Normal Not Detected [facility] MAIN Comment on above: Performed By: #### B MP, ADIFF, GFR, ANEU, CBC, RFP #### [place] [address] Staphylococcus Not detected Normal Not Detected [facility] MAIN Comment on above: Performed By: #### B MP, ADIFF, GFR, ANEU, CBC, RFP #### [place] [address] Staphylococcus aureus Not detected Normal Not Detected [facility] MAIN Comment on above: Result Comment: If S taphylococcus aureus is Detected, an Infectious Disease physician consult is required on identification. Performed By: #### B MP, ADIFF, GFR, ANEU, CBC, RFP #### [place] [address] Staphylococcus epidermidis Not detected Normal Not Detected [facility] MAIN Comment on above: Performed By: #### B MP, ADIFF, GFR, ANEU, CBC, RFP #### [place] [address] Staphylococcus lugdunensis Not detected Normal Not Detected [facility] MAIN Comment on above: Performed By: #### B MP, ADIFF, GFR, ANEU, CBC, RFP #### [place] [address] Stenotrophomonas maltophilia Not detected Normal Not Detected [facility] MA[facility] Comment on above: Performed By: #### B MP, ADIFF, GFR, ANEU, CBC, RFP #### [place] [address] Streptococcus Not detected Normal Not Detected [facility] MA[facility] Comment on above: Performed By: #### B MP, ADIFF, GFR, ANEU, CBC, RFP #### [place] [address] Streptococcus pneumoniae Not detected Normal Not Detec chandrakant [facility] MAIN Comment on above: Performed By: #### B MP, ADIFF, GFR, ANEU, CBC, RFP #### [place] [address] Streptococcus pyogenes Not detected Normal Not Detecte d [facility] MAIN Comment on above: Performed By: #### B MP, ADIFF, GFR, ANEU, CBC, RFP #### [place] [address] Van A/B Not Applicable Normal Not Detected [facility] MAIN Comment on above: Performed By: #### B MP, ADIFF, GFR, ANEU, CBC, RFP #### [place] [address] VIM (Carbapenemase) Not Applicable Normal Not Detected [facility] MAIN Comment on above: Performed By: #### B MP, ADIFF, GFR, ANEU, CBC, RFP #### [place] [address] CBCon 10-29-2024 Erythrocyte distribution width (RBC) [Ratio] 14.6 % Normal 11.5-15.5 [facility] MAIN Comment on above: Performed By: #### B MP, ADIFF, GFR, ANEU, CBC, RFP #### [place] [address] Hematocrit (Bld) [Volume fraction] 37.8 % Low 40.0-52.0 [facility] MAIN Comment on above: Performed By: #### B MP, ADIFF, GFR, ANEU, CBC, RFP #### [place] [address] Hgb 12.3 G/dL Low 13.0-17.5 [facility] MA[facility] Comment on above: Performed By: #### B MP, ADIFF, GFR, ANEU, CBC, RFP #### [place] [address] MCH (RBC) [Entitic mass] 34.7 pg High 27.0-33.0 [facility] MAIN Comment on above: Performed By: #### B MP, ADIFF, GFR, ANEU, CBC, RFP #### [place] [address] MCHC 32.6 G/dL Normal 32.0-36.0 [facility] MA[facility] Comment on above: Performed By: #### B MP, ADIFF, GFR, ANEU, CBC, RFP #### [place] [address] MCV (RBC) [Entitic vol] 106.5 fL High 81.0-100.0 [facility] MA[facility] Comment on above: Performed By: #### B MP, ADIFF, GFR, ANEU, CBC, RFP #### [place] [address] Platelet 220 10 3/mcL Normal 150-450 [facility] MAIN Comment on above: Performed By: #### B MP, ADIFF, GFR, ANEU, CBC, RFP #### [place] [address] Platelet mean volume (Bld) [Entitic vol] 7.1 fL Normal 6.4-10.5 [facility] MAIN Comment on above: Performed By: #### B MP, ADIFF, GFR, ANEU, CBC, RFP #### [place] [address] RBC 3.55 10 6/mcL Low 4.50-6.00 [facility] Comment on above: Performed By: #### B MP, ADIFF, GFR, ANEU, CBC, RFP #### [place] [address] WBC 14.5 10 3/mcL High 4.5-10.8 [facility] Comment on above: Performed By: #### B MP, ADIFF, GFR, ANEU, CBC, RFP #### [place] [address] CKon 10-29-2024 CK [Catalytic activity/Vol] 46 U/L Normal 7-185 [facility] MAIN Comment on above: Performed By: #### B MP, ADIFF, GFR, ANEU, CBC, RFP #### [address] [address] CMPon 10-29-2024 Albumin Level 2.5 G/dL Low 3.2-4.8 [facility] MAIN Comment on above: Performed By: #### B MP, ADIFF, GFR, ANEU, CBC, RFP #### [place] [id number] Albumin/Globulin [Mass ratio] 0.6 {ratio} Low 0.9-1.6 [facility] MAIN Comment on above: Performed By: #### B MP, ADIFF, GFR, ANEU, CBC, RFP #### [place] [address] ALP [Catalytic activity/Vol] 62 U/L Normal 38-126 [facility] MAIN Comment on above: Performed By: #### B MP, ADIFF, GFR, ANEU, CBC, RFP #### [place] [address] ALT [Catalytic activity/Vol] 13 U/L Normal 12-55 [facility] MAIN Comment on above: Performed By: #### B MP, ADIFF, GFR, ANEU, CBC, RFP #### [place] [address] AST [Catalytic activity/Vol] 23 U/L Normal 8-34 [facility] MAIN Comment on above: Performed By: #### B MP, ADIFF, GFR, ANEU, CBC, RFP #### [place] [address] Bili Total 0.60 mg/dL Normal 0.20-1.20 [facility] MAIN Comment on above: Result Comment: Use of this assay is not recommended for patients undergoing treatment with eltrombopag due to the potential for falsely elevated results. Performed By: #### B MP, ADIFF, GFR, ANEU, CBC, RFP #### [place] [address] BUN/Creatinine Ratio 12.6 ratio Normal 10.0-22.0 [facility] MAIN Comment on above: Performed By: #### B MP, ADIFF, GFR, ANEU, CBC, RFP #### [address] [address] Calcium [Mass/Vol] 8.9 mg/dL Normal 8.7-10.4 [facility] MAIN Comment on above: Performed By: #### B MP, ADIFF, GFR, ANEU, CBC, RFP #### [address] [address] Chloride [Moles/Vol] 106 mmol/L Normal 98-110 [facility] MAIN Comment on above: Performed By: #### B MP, ADIFF, GFR, ANEU, CBC, RFP #### [address] [address] CO2 [Moles/Vol] 26 mmol/L Normal 22-32 [facility] Comment on above: Performed By: #### B MP, ADIFF, GFR, ANEU, CBC, RFP #### [address] [address] Creatinine [Mass/Vol] 3.50 mg/dL High 0.60-1.40 [facility] MAIN Comment on above: Result Comment: Test ing performed on Surfkitchen analyzer using enzymatic creatinine methodology. Performed By: #### B MP, ADIFF, GFR, ANEU, CBC, RFP #### [address] [address] Electrolyte Balance 11.0 mEq/L Normal 4.0-15.0 [facility] MAIN Comment on above: Performed By: #### B MP, ADIFF, GFR, ANEU, CBC, RFP #### [address] [address] Globulin 4.1 G/dL Normal 2.5-4.2 [facility] Comment on above: Performed By: #### B MP, ADIFF, GFR, ANEU, CBC, RFP #### [address] [address] Glucose [Mass/Vol] 106 mg/dL Normal 82-115 [facility] MAIN Comment on above: Performed By: #### B MP, ADIFF, GFR, ANEU, CBC, RFP #### [address] [address] Potassium [Moles/Vol] 4.6 mmol/L Normal 3.5-5.0 [facility] MAIN Comment on above: Performed By: #### B MP, ADIFF, GFR, ANEU, CBC, RFP #### [place] [address] Sodium [Moles/Vol] 143 mmol/L Normal 136-145 [facility] MAIN Comment on above: Performed By: #### B MP, ADIFF, GFR, ANEU, CBC, RFP #### [place] [address] Total Protein 6.6 G/dL Normal 5.7-8.2 [facility] Comment on above: Performed By: #### B MP, ADIFF, GFR, ANEU, CBC, RFP #### [place] [address] Urea nitrogen [Mass/Vol] 44.0 mg/dL High 8.0-22.0 [facility] Comment on above: Performed By: #### B MP, ADIFF, GFR, ANEU, CBC, RFP #### [place] [address] MGon 10-29-2024 Magnesium [Mass/Vol] 2.0 mg/dL Normal 1.6-2.4 [facility] MAIN Comment on above: Performed By: #### B MP, ADIFF, GFR, ANEU, CBC, RFP #### [place] [id number] .Auto Diffon 10-28-2024 Basophil, Absolute 0.0 10 3/mcL Normal 0.0-0.3 [facility] MAIN Comment on above: Performed By: #### B MP, ADIFF, GFR, ANEU, CBC, RFP #### [place] [id number] Basophils/100 WBC (Bld) 0.3 % Normal 0.0-2.5 [facility] MAIN Comment on above: Performed By: #### B MP, ADIFF, GFR, ANEU, CBC, RFP #### [place] [address] Eosinophil, Absolute 0.1 10 3/mcL Normal 0.0-0.7 [facility] MAIN Comment on above: Performed By: #### B MP, ADIFF, GFR, ANEU, CBC, RFP #### [address] [address] Eosinophils/100 WBC (Bld) 0.6 % Normal 0.0-6.0 [facility] MA[facility] Comment on above: Performed By: #### B MP, ADIFF, GFR, ANEU, CBC, RFP #### [address] [address] Lymphocyte, Absolute 0.4 10 3/mcL Low 0.9-4.3 [facility] MAIN Comment on above: Performed By: #### B MP, ADIFF, GFR, ANEU, CBC, RFP #### [address] [address] Lymphocytes/100 WBC (Bld) 2.9 % Low 20.0-40.0 [facility] Comment on above: Performed By: #### B MP, ADIFF, GFR, ANEU, CBC, RFP #### [address] [address] Monocyte, Absolute 1.0 10 3/mcL Normal 0.1-1.4 [facility] MAIN Comment on above: Performed By: #### B MP, ADIFF, GFR, ANEU, CBC, RFP #### [address] [address] Monocytes/100 WBC (Bld) 7.2 % Normal 2.0-13.0 [facility] MA[facility] Comment on above: Performed By: #### B MP, ADIFF, GFR, ANEU, CBC, RFP #### [address] [address] Neutrophils/100 WBC (Bld) 89.0 % High 50.0-75.0 [facility] Comment on above: Performed By: #### B MP, ADIFF, GFR, ANEU, CBC, RFP #### [address] [address] .GFRon 10-28-2024 Estimated Glomerular Filtration Rate 20 ml/min/1.73sqm Normal [facility] MA[facility] Comment on above: Result Comment: Stages of [...] calculate the eGFR results. Performed By: #### B MP, ADIFF, GFR, ANEU, CBC, RFP #### [address] [address] .NEUABSon 10-28-2024 Neutrophil, Absolute 12.1 10 3/mcL High 2.3-8.1 [facility] MA[facility] Comment on above: Performed By: #### B MP, ADIFF, GFR, ANEU, CBC, RFP #### [address] [address] BMPon 10-28-2024 BUN/Creatinine Ratio 9.3 ratio Low 10.0-22.0 [facility] MAIN Comment on above: Performed By: #### B MP, ADIFF, GFR, ANEU, CBC, RFP #### [address] [address] Calcium [Mass/Vol] 9.2 mg/dL Normal 8.7-10.4 [facility] MA[facility] Comment on above: Performed By: #### B MP, ADIFF, GFR, ANEU, CBC, RFP #### [address] [address] Chloride [Moles/Vol] 110 mmol/L Normal 98-110 [facility] MAIN Comment on above: Performed By: #### B MP, ADIFF, GFR, ANEU, CBC, RFP #### [place] [id number] CO2 [Moles/Vol] 20 mmol/L Low 22-32 [facility] Comment on above: Performed By: #### B MP, ADIFF, GFR, ANEU, CBC, RFP #### [place] [address] Creatinine [Mass/Vol] 3.00 mg/dL High 0.60-1.40 [facility] MAIN Comment on above: Result Comment: Test ing performed on Surfkitchen analyzer using enzymatic creatinine methodology. Performed By: #### B MP, ADIFF, GFR, ANEU, CBC, RFP #### [place] [id number] Electrolyte Balance 12.0 mEq/L Normal 4.0-15.0 [facility] MAIN Comment on above: Performed By: #### B MP, ADIFF, GFR, ANEU, CBC, RFP #### [place] [id number] Glucose [Mass/Vol] 95 mg/dL Normal 82-115 [facility] MA[facility] Comment on above: Performed By: #### B MP, ADIFF, GFR, ANEU, CBC, RFP #### [place] [id number] Potassium [Moles/Vol] 5.0 mmol/L Normal 3.5-5.0 [facility] MA[facility] Comment on above: Performed By: #### B MP, ADIFF, GFR, ANEU, CBC, RFP #### [place] [id number] Sodium [Moles/Vol] 142 mmol/L Normal 136-145 [facility] Comment on above: Performed By: #### B MP, ADIFF, GFR, ANEU, CBC, RFP #### [place] [id number] Urea nitrogen [Mass/Vol] 28.0 mg/dL High 8.0-22.0 [facility] Comment on above: Performed By: #### B MP, ADIFF, GFR, ANEU, CBC, RFP #### [place] [id number] CBCon 10-28-2024 Erythrocyte distribution width (RBC) [Ratio] 14.6 % Normal 11.5-15.5 [facility] Comment on above: Performed By: #### B MP, ADIFF, GFR, ANEU, CBC, RFP #### [address] [address] Hematocrit (Bld) [Volume fraction] 42.6 % Normal 40.0-52.0 [facility] Comment on above: Performed By: #### B MP, ADIFF, GFR, ANEU, CBC, RFP #### [place] [address] Hgb 13.9 G/dL Normal 13.0-17.5 [facility] Comment on above: Performed By: #### B MP, ADIFF, GFR, ANEU, CBC, RFP #### [place] [address] MCH (RBC) [Entitic mass] 34.5 pg High 27.0-33.0 [facility] Comment on above: Performed By: #### B MP, ADIFF, GFR, ANEU, CBC, RFP #### [place] [address] MCHC 32.5 G/dL Normal 32.0-36.0 [facility] Comment on above: Performed By: #### B MP, ADIFF, GFR, ANEU, CBC, RFP #### [place] [address] MCV (RBC) [Entitic vol] 106.1 fL High 81.0-100.0 [facility] Comment on above: Performed By: #### B MP, ADIFF, GFR, ANEU, CBC, RFP #### [place] [address] Platelet 272 10 3/mcL Normal 150-450 [facility] Comment on above: Performed By: #### B MP, ADIFF, GFR, ANEU, CBC, RFP #### [place] [address] Platelet mean volume (Bld) [Entitic vol] 7.1 fL Normal 6.4-10.5 [facility] Comment on above: Performed By: #### B MP, ADIFF, GFR, ANEU, CBC, RFP #### [place] [address] RBC 4.02 10 6/mcL Low 4.50-6.00 [facility] Comment on above: Performed By: #### B MP, ADIFF, GFR, ANEU, CBC, RFP #### [address] [address] WBC 13.6 10 3/mcL High 4.5-10.8 [facility] Comment on above: Performed By: #### B MP, ADIFF, GFR, ANEU, CBC, RFP #### [address] [address] .Auto Diffon 10-27-2024 Basophil, Absolute 0.0 10 3/mcL Normal 0.0-0.3 [facility] Comment on above: Performed By: #### B MP, ADIFF, GFR, ANEU, CBC, RFP #### [address] [address] Basophils/100 WBC (Bld) 0.2 % Normal 0.0-2.5 [facility] Comment on above: Performed By: #### B MP, ADIFF, GFR, ANEU, CBC, RFP #### [address] [address] Eosinophil, Absolute 0.0 10 3/mcL Normal 0.0-0.7 [facility] Comment on above: Performed By: #### B MP, ADIFF, GFR, ANEU, CBC, RFP #### [address] [address] Eosinophils/100 WBC (Bld) 0.3 % Normal 0.0-6.0 [facility] Comment on above: Performed By: #### B MP, ADIFF, GFR, ANEU, CBC, RFP #### [address] [address] Lymphocyte, Absolute 0.5 10 3/mcL Low 0.9-4.3 [facility] Comment on above: Performed By: #### B MP, ADIFF, GFR, ANEU, CBC, RFP #### [address] [address] Lymphocytes/100 WBC (Bld) 3.9 % Low 20.0-40.0 [facility] Comment on above: Performed By: #### B MP, ADIFF, GFR, ANEU, CBC, RFP #### [address], [place] [address] Monocyte, Absolute 1.1 10 3/mcL Normal 0.1-1.4 [facility] Comment on above: Performed By: #### B MP, ADIFF, GFR, ANEU, CBC, RFP #### [address] [address] Monocytes/100 WBC (Bld) 9.3 % Normal 2.0-13.0 [facility] Comment on above: Performed By: #### B MP, ADIFF, GFR, ANEU, CBC, RFP #### [address] [address] Neutrophils/100 WBC (Bld) 86.3 % High 50.0-75.0 [facility] Comment on above: Performed By: #### B MP, ADIFF, GFR, ANEU, CBC, RFP #### [address] [address] .GFRon 10-27-2024 Estimated Glomerular Filtration Rate 28 ml/min/1.73sqm Normal [facility] Comment on above: Result Comment: Stages of [...] calculate the eGFR results. Performed By: #### B MP, ADIFF, GFR, ANEU, CBC, RFP #### [address] [address] .MDWon 10-27-2024 Monocyte Distribution Width 21.04 High 0.00-20.00 [facility] Comment on above: Result Comment: For adults in ED, MDW>20.0 may be associated with a higher risk of sepsis during the first 12hrs of hospital admission Performed By: #### B MP, ADIFF, GFR, ANEU, CBC, RFP #### [address] [address] .NEUABSon 10-27-2024 Neutrophil, Absolute 10.6 10 3/mcL High 2.3-8.1 [facility] Comment on above: Performed By: #### B MP, ADIFF, GFR, ANEU, CBC, RFP #### [address] [address] BMPon 10-27-2024 BUN/Creatinine Ratio 13.8 ratio Normal 10.0-22.0 [facility] Comment on above: Performed By: #### B MP, ADIFF, GFR, ANEU, CBC, RFP #### [address] [address] Calcium [Mass/Vol] 9.6 mg/dL Normal 8.7-10.4 [facility] Comment on above: Performed By: #### B MP, ADIFF, GFR, ANEU, CBC, RFP #### [address] [address] Chloride [Moles/Vol] 110 mmol/L Normal 98-110 [facility] Comment on above: Performed By: #### B MP, ADIFF, GFR, ANEU, CBC, RFP #### [address] [address] CO2 [Moles/Vol] 24 mmol/L Normal 22-32 [facility] Comment on above: Performed By: #### B MP, ADIFF, GFR, ANEU, CBC, RFP #### [address] [address] Creatinine [Mass/Vol] 2.32 mg/dL High 0.60-1.40 [facility] Comment on above: Result Comment: Test ing performed on Surfkitchen analyzer using enzymatic creatinine methodology. Performed By: #### B MP, ADIFF, GFR, ANEU, CBC, RFP #### [address] [address] Electrolyte Balance 7.0 mEq/L Normal 4.0-15.0 [facility] Comment on above: Performed By: #### B MP, ADIFF, GFR, ANEU, CBC, RFP #### [place] [id number] Glucose [Mass/Vol] 103 mg/dL Normal 82-115 [facility] Comment on above: Performed By: #### B MP, ADIFF, GFR, ANEU, CBC, RFP #### [address] [address] Potassium [Moles/Vol] 5.4 mmol/L High 3.5-5.0 [facility] Comment on above: Result Comment: Spec imen slightly hemolyzed. Performed By: #### B MP, ADIFF, GFR, ANEU, CBC, RFP #### [place] [id number] Sodium [Moles/Vol] 141 mmol/L Normal 136-145 [facility] Comment on above: Performed By: #### B MP, ADIFF, GFR, ANEU, CBC, RFP #### [place] [id number] Urea nitrogen [Mass/Vol] 32.0 mg/dL High 8.0-22.0 [facility] Comment on above: Performed By: #### B MP, ADIFF, GFR, ANEU, CBC, RFP #### [place] [id number] CBCon 10-27-2024 Erythrocyte distribution width (RBC) [Ratio] 14.3 % Normal 11.5-15.5 [facility] Comment on above: Performed By: #### B MP, ADIFF, GFR, ANEU, CBC, RFP #### [place] [address] Hematocrit (Bld) [Volume fraction] 43.5 % Normal 40.0-52.0 [facility] Comment on above: Performed By: #### B MP, ADIFF, GFR, ANEU, CBC, RFP #### [place] [address] Hgb 14.4 G/dL Normal 13.0-17.5 [facility] Comment on above: Performed By: #### B MP, ADIFF, GFR, ANEU, CBC, RFP #### [address] [address] MCH (RBC) [Entitic mass] 34.7 pg High 27.0-33.0 [facility] Comment on above: Performed By: #### B MP, ADIFF, GFR, ANEU, CBC, RFP #### [place] [address] MCHC 33.0 G/dL Normal 32.0-36.0 [facility] Comment on above: Performed By: #### B MP, ADIFF, GFR, ANEU, CBC, RFP #### [place] [address] MCV (RBC) [Entitic vol] 104.9 fL High 81.0-100.0 [facility] MA[facility] Comment on above: Performed By: #### B MP, ADIFF, GFR, ANEU, CBC, RFP #### [place] [address] Platelet 240 10 3/mcL Normal 150-450 [facility] Comment on above: Performed By: #### B MP, ADIFF, GFR, ANEU, CBC, RFP #### [place] [address] Platelet mean volume (Bld) [Entitic vol] 6.9 fL Normal 6.4-10.5 [facility] Comment on above: Performed By: #### B MP, ADIFF, GFR, ANEU, CBC, RFP #### [place] [address] RBC 4.15 10 6/mcL Low 4.50-6.00 [facility] Comment on above: Performed By: #### B MP, ADIFF, GFR, ANEU, CBC, RFP #### [place] [address] WBC 12.3 10 3/mcL High 4.5-10.8 [facility] Comment on above: Performed By: #### B MP, ADIFF, GFR, ANEU, CBC, RFP #### [place] [address] CT ABDOMEN/PELVIS W/O CONTRA STon 10-27-2024 CT ABDOMEN/PELVIS W/O CONTRAST ORIGINAL EXAMINATION: CT OF THE ABDOMEN AND PELVIS WITHOUT CONTRAST 10/27/2024 3:01 pm TECHNIQUE: CT of the abdomen and pelvis was performed without the administration of intravenous contrast. Multiplanar reformatted images are provided for review. Automated exposure control, iterative reconstruction, and/or weight based adjustment of the mA/kV was utilized to reduce the radiation dose to as low as reasonably achievable. COMPARISON: None. HISTORY: ORDERING SYSTEM PROVIDED HISTORY: Reason for Exam: HX OF DEMENTIA, HX OF PREV MULTI RENAL STONES, HX OF PREV STONE SURGERY, SCHED TO HAVE LITHO W STENT 11/03/24 FOR MULTIPLE RT OBST STONES, ALSO HAS LT NON OBST STONES Flank pain, recent stent placement FINDINGS: Nxls-ru-[id number] degenerative changes are noted in the spine. Mild hip osteoarthritis is also evident. No acute osseous abnormality. Small areas of scarring are visible at the lung bases. The gallbladder is grossly unremarkable. The liver, spleen, adrenal glands and pancreas appear normal. Bilateral renal cysts are present. A right ureteral stent is noted. There is mild to moderate right-sided pelvicaliectasis noted. Multiple right mid and lower pole renal stones are present. The largest stone is at the right lower pole, 1.2 cm in size. Dependent calculus is also present within the dilated renal pelvis, measuring up to 11 mm in size. There is also a distal right ureteral stone adjacent to the stent, measuring 5 mm. Small fat containing left inguinal hernia is present. A right inguinal hernia contains fat and small bowel, without obstruction. The urinary bladder is unremarkable. There is mild diverticulosis of the sigmoid and left colon with scattered diverticula elsewhere as well. No evidence for diverticulitis. No other GI tract abnormality seen. No additional contributory finding. IMPRESSION: 1. Right ureteral stent in place with mild to moderate right-sided pelvicaliectasis. 2. Multiple right renal stones. 3. 5 mm distal right ureteral stone adjacent to the stent. 4. Diverticulosis without diverticulitis. 5. Right inguinal hernia containing fat and small bowel, without obstruction. Interpreted by: Jack Nunn MD Preliminary Report By: Jack Nunn MD Electronically signed By Jack Nunn MD Dictated Date: 10/27/2024 3:15:01 PM Prelim Date: 10/27/2024 3:23:24 PM Sign Date: 10/27/2024 3:23:24 PM Ordering Provider: KEENAN FRANK [facility] MAIN CVFLURVon 10-27-2024 FLU A PCR Negative Normal Negative [facility] Comment on above: Result Comment: [place] [id number] Performed By: #### C VFLURV #### [facility] [address] [place] [address] FLU B PCR Negative Normal Negative [facility] Comment on above: Result Comment: [place] [id number] Performed By: #### C VFLURV #### [place] [address] RSV PCR Negative Normal Negative [facility] Comment on above: Result Comment: [place] [id number] Performed By: #### C VFLURV #### [place] [address] SARS-CoV-2 (COVID-19) RNA RONIT+probe Ql (Unsp spec) Negative Normal Negative [facility] Comment on above: Result Comment: [place] [id number] Results from the Xpert Xpress SARS-CoV-2/Flu/RSV or Xpert Xpress SARS-CoV-2 only test should be correlated with the clinical history, epidemiological data, and other data available to the clinician evaluating the patient. Performance of the Xpert Xpress SARS-CoV-2/Flu/RSV or Xpert Xpress SARS-CoV-2 only test has only been established in nasopharyngeal swab specimens. Erroneous test results might occur from improper specimen collection; failure to follow the recommended sample collection, handling, and storage procedures; technical error; or sample mix-up.False negative results may occur if virus is present at levels below the analytical limit of detection. Viral nucleic acid may persist in vivo, independent of virus viability. Detection of analyte target(s) does not imply that the corresponding virus(es) are infectious or are the causative agents for clinical symptoms.Recent patient exposure to FluMist or other live attenuated influenza vaccines may cause inaccurate positive results. FDA Approved. Performed By: #### C VFLURV #### [place] [address] HFPon 10-27-2024 Bili Indirect 0.5 mg/dL Normal 0.1-10.0 [facility] MA[facility] Comment on above: Performed By: #### B MP, ADIFF, GFR, ANEU, CBC, RFP #### [place] [address] Albumin Level 2.9 G/dL Low 3.2-4.8 [facility] Comment on above: Performed By: #### B MP, ADIFF, GFR, ANEU, CBC, RFP #### [place] [address] Albumin/Globulin [Mass ratio] 0.8 {ratio} Low 0.9-1.6 [facility] Comment on above: Performed By: #### B MP, ADIFF, GFR, ANEU, CBC, RFP #### [place] [address] ALP [Catalytic activity/Vol] 62 U/L Normal 38-126 [facility] Comment on above: Performed By: #### B MP, ADIFF, GFR, ANEU, CBC, RFP #### [place] [address] ALT [Catalytic activity/Vol] 14 U/L Normal 12-55 [facility] Comment on above: Performed By: #### B MP, ADIFF, GFR, ANEU, CBC, RFP #### [place] [address] AST [Catalytic activity/Vol] 22 U/L Normal 8-34 [facility] Comment on above: Performed By: #### B MP, ADIFF, GFR, ANEU, CBC, RFP #### [place] [address] Bili Direct 0.2 mg/dL Normal 0.0-0.4 [facility] Comment on above: Result Comment: Use of this assay is not recommended for patients undergoing treatment with eltrombopag due to the potential for falsely elevated results. Performed By: #### B MP, ADIFF, GFR, ANEU, CBC, RFP #### [place] [address] Bili Total 0.70 mg/dL Normal 0.20-1.20 [facility] Comment on above: Result Comment: Use of this assay is not recommended for patients undergoing treatment with eltrombopag due to the potential for falsely elevated results. Performed By: #### B MP, ADIFF, GFR, ANEU, CBC, RFP #### [address] [address] Globulin 3.6 G/dL Normal 2.5-4.2 [facility] Comment on above: Performed By: #### B MP, ADIFF, GFR, ANEU, CBC, RFP #### [place] [address] Total Protein 6.5 G/dL Normal 5.7-8.2 [facility] Comment on above: Performed By: #### B MP, ADIFF, GFR, ANEU, CBC, RFP #### [place] [id number] Feroz 10-27-2024 Potassium [Moles/Vol] 4.8 mmol/L Normal 3.5-5.0 [facility] MA[facility] Comment on above: Performed By: #### B MP, ADIFF, GFR, ANEU, CBC, RFP #### [place] [address] LACon 10-27-2024 Lactic Acid Lvl 1.0 mmol/L Normal 0.5-2.2 [facility] Comment on above: Performed By: #### B MP, ADIFF, GFR, ANEU, CBC, RFP #### [place] [id number] LIPon 10-27-2024 Lipase Level 29 U/L Normal 12-53 [facility] Comment on above: Performed By: #### B MP, ADIFF, GFR, ANEU, CBC, RFP #### [place] [id number] UAon 10-27-2024 Color (U) Yellow Normal [facility] Comment on above: Performed By: #### B MP, ADIFF, GFR, ANEU, CBC, RFP #### [place] [address] Glucose (U) [Mass/Vol] Negative Normal Negative [facility] MAIN Comment on above: Performed By: #### B MP, ADIFF, GFR, ANEU, CBC, RFP #### [place] [address] Ketones Ql (U) Negative Normal Neg-Trace [facility] Comment on above: Performed By: #### B MP, ADIFF, GFR, ANEU, CBC, RFP #### [place] [address] UA Appear Clear Normal Clear [facility] Comment on above: Performed By: #### B MP, ADIFF, GFR, ANEU, CBC, RFP #### [place] [address] UA Blood Moderate Abnormal Neg-Trace [facility] Comment on above: Performed By: #### B MP, ADIFF, GFR, ANEU, CBC, RFP #### [place] [address] UA Leuk Est Moderate Abnormal Negative [facility] Comment on above: Performed By: #### B MP, ADIFF, GFR, ANEU, CBC, RFP #### [place] [address] UA Nitrite Negative Normal Negative [facility] Comment on above: Performed By: #### B MP, ADIFF, GFR, ANEU, CBC, RFP #### [place] [address] UA pH 5.5 Normal 5.0 - 8.0 [facility] Comment on above: Performed By: #### B MP, ADIFF, GFR, ANEU, CBC, RFP #### [place] [address] UA Protein 30 mg/dL Normal Negative [facility] MA[facility] Comment on above: Performed By: #### B MP, ADIFF, GFR, ANEU, CBC, RFP #### [place] [address] UA Spec Grav 1.015 Normal 1.006-1.029 [facility] Comment on above: Performed By: #### B MP, ADIFF, GFR, ANEU, CBC, RFP #### [place] [address] UA Specimen Type Clean Catch Normal [facility] Comment on above: Performed By: #### B MP, ADIFF, GFR, ANEU, CBC, RFP #### [place] [address] UA Urobilinogen 0.2 E.U./dL Normal 0.2-1.0 [facility] Comment on above: Performed By: #### B MP, ADIFF, GFR, ANEU, CBC, RFP #### [facility] [address] [place] [address] Urobilinogen (U) [Mass/Vol] Negative Normal Neg-Trace [facility] Comment on above: Performed By: #### B MP, ADIFF, GFR, ANEU, CBC, RFP #### [facility] [address] [place] [address] UAMICon 10-27-2024 UA RBC 3-5 Abnormal 0-2 [facility] MA[facility] Comment on above: Performed By: #### B MP, ADIFF, GFR, ANEU, CBC, RFP #### [address] [address] UA Squam Epithelial Rare Normal 0-20 [facility] MAIN Comment on above: Performed By: #### B MP, ADIFF, GFR, ANEU, CBC, RFP #### [facility] [address] [place] [address] UA WBC 10-20 Abnormal 0-5 [facility] MA[facility] Comment on above: Performed By: #### B MP, ADIFF, GFR, ANEU, CBC, RFP #### [address] [address] XR CHEST 1 VIEWon 10-27-2024 XR CHEST 1 VIEW ORIGINAL EXAMINATION: ONE XRAY VIEW OF THE CHEST 10/27/2024 3:29 pm COMPARISON: 08/06/2024 HISTORY: ORDERING SYSTEM PROVIDED HISTORY: Reason for Exam: weakness, fever FINDINGS: Poor inspiratory effort noted. Scattered calcified benign granulomas are present in both lower lobes unchanged. Heart is top-normal in size. There is no pulmonary edema, lobar consolidation or pneumothorax. Skeletal elements remain intact. IMPRESSION: 1. Poor inspiratory effort. 2. No acute airspace disease. Interpreted by: Timmy Villagomez DO Preliminary Report By: Timmy Villagomez DO Electronically signed By Timmy Villagomez DO Dictated Date: 10/27/2024 3:37:36 PM Prelim Date: 10/27/2024 3:38:14 PM Sign Date: 10/27/2024 3:38:14 PM Ordering Provider: KEENAN Rodrigez [facility] .Auto Diffon 10-23-2024 Basophil, Absolute 0.0 10 3/mcL Normal 0.0-0.3 [facility] Comment on above: Performed By: #### B MP, GFR, ANEU, ADIFF, CBC ####[address] [place], [place] [address] Basophils/100 WBC (Bld) 0.3 % Normal 0.0-2.5 [facility] Comment on above: Performed By: #### B MP, GFR, ANEU, ADIFF, CBC ####[address] [place], [place] [address] Eosinophil, Absolute 0.1 10 3/mcL Normal 0.0-0.7 [facility] Comment on above: Performed By: #### B MP, GFR, ANEU, ADIFF, CBC ####[address] [place], [place] [address] Eosinophils/100 WBC (Bld) 1.2 % Normal 0.0-6.0 [facility] Comment on above: Performed By: #### B MP, GFR, ANEU, ADIFF, CBC ####[address] [place], [place] [address] Lymphocyte, Absolute 0.8 10 3/mcL Low 0.9-4.3 [facility] Comment on above: Performed By: #### B MP, GFR, ANEU, ADIFF, CBC ####[address] [place], [place] [address] Lymphocytes/100 WBC (Bld) 8.3 % Low 20.0-40.0 [facility] Comment on above: Performed By: #### B MP, GFR, ANEU, ADIFF, CBC ####[address] [place], [place] [address] Monocyte, Absolute 1.2 10 3/mcL Normal 0.1-1.4 [facility] Comment on above: Performed By: #### B MP, GFR, ANEU, ADIFF, CBC ####[address] [place], [place] [address] Monocytes/100 WBC (Bld) 12.9 % Normal 2.0-13.0 [facility] Comment on above: Performed By: #### B MP, GFR, ANEU, ADIFF, CBC ####[address] [address] Neutrophils/100 WBC (Bld) 77.3 % High 50.0-75.0 [facility] Comment on above: Performed By: #### B MP, GFR, ANEU, ADIFF, CBC ####[address] [address] .GFRon 10-23-2024 Estimated Glomerular Filtration Rate 42 ml/min/1.73sqm Normal [facility] Comment on above: Result Comment: Stages of [...] calculate the eGFR results. Performed By: #### B MP, GFR, ANEU, ADIFF, CBC ####[place] [address] [place], [place] [address] .NEUABSon 10-23-2024 Neutrophil, Absolute 7.2 10 3/mcL Normal 2.3-8.1 [facility] Comment on above: Performed By: #### B MP, GFR, ANEU, ADIFF, CBC ####[address] [place], [place] [address] BMPon 10-23-2024 BUN/Creatinine Ratio 23 ratio Normal 7-27 [facility] Comment on above: Performed By: #### B MP, GFR, ANEU, ADIFF, CBC ####[place] [address] [place], [place] [address] Calcium [Mass/Vol] 9.9 mg/dL Normal 8.4-10.2 [facility] Comment on above: Performed By: #### B MP, GFR, ANEU, ADIFF, CBC ####[address] [address] Chloride [Moles/Vol] 106 mmol/L Normal 98-107 [facility] Comment on above: Performed By: #### B MP, GFR, ANEU, ADIFF, CBC ####[address] [address] CO2 [Moles/Vol] 27 mmol/L Normal 23-31 [facility] Comment on above: Performed By: #### B MP, GFR, ANEU, ADIFF, CBC ####[address] [address] Creatinine [Mass/Vol] 1.66 mg/dL High 0.67-1.17 [facility] Comment on above: Performed By: #### B MP, GFR, ANEU, ADIFF, CBC ####[address] [address] Electrolyte Balance 8.0 mEq/L Normal 4.0-15.0 [facility] Comment on above: Performed By: #### B MP, GFR, ANEU, ADIFF, CBC ####[address] [address] Glucose [Mass/Vol] 103 mg/dL Normal 83-110 [facility] Comment on above: Performed By: #### B MP, GFR, ANEU, ADIFF, CBC ####[address] [address] Potassium [Moles/Vol] 4.8 mmol/L Normal 3.5-5.1 [facility] Comment on above: Performed By: #### B MP, GFR, ANEU, ADIFF, CBC ####[address] [address] Sodium [Moles/Vol] 141 mmol/L Normal 136-145 [facility] Comment on above: Performed By: #### B MP, GFR, ANEU, ADIFF, CBC ####[place] [address] Urea nitrogen [Mass/Vol] 38 mg/dL High 7-18 [facility] Comment on above: Performed By: #### B MP, GFR, ANEU, ADIFF, CBC ####[place] [address] [address] [place] [id number] CBCon 10-23-2024 Erythrocyte distribution width (RBC) [Ratio] 14.5 % Normal 11.5-15.5 [facility] Comment on above: Performed By: #### B MP, GFR, ANEU, ADIFF, CBC ####[place] [address] Hematocrit (Bld) [Volume fraction] 41.4 % Normal 40.0-52.0 [facility] Comment on above: Performed By: #### B MP, GFR, ANEU, ADIFF, CBC ####[place] [address] Hgb 13.8 G/dL Normal 13.0-17.5 [facility] Comment on above: Performed By: #### B MP, GFR, ANEU, ADIFF, CBC ####[place] [address] MCH (RBC) [Entitic mass] 35.2 pg High 27.0-33.0 [facility] Comment on above: Performed By: #### B MP, GFR, ANEU, ADIFF, CBC ####[place] [address] MCHC 33.3 G/dL Normal 32.0-36.0 [facility] Comment on above: Performed By: #### B MP, GFR, ANEU, ADIFF, CBC ####[place] [address] MCV (RBC) [Entitic vol] 105.8 fL High 81.0-100.0 [facility] Comment on above: Performed By: #### B MP, GFR, ANEU, ADIFF, CBC ####[address] [place], [place] [address] Platelet 175 10 3/mcL Normal 150-450 [facility] Comment on above: Performed By: #### B MP, GFR, ANEU, ADIFF, CBC ####[address] [place], [place] [address] Platelet mean volume (Bld) [Entitic vol] 6.9 fL Normal 6.4-10.5 [facility] Comment on above: Performed By: #### B MP, GFR, ANEU, ADIFF, CBC ####[address] [place], [place] [address] RBC 3.91 10 6/mcL Low 4.50-6.00 [facility] Comment on above: Performed By: #### B MP, GFR, ANEU, ADIFF, CBC ####[address] [place], [place] [address] WBC 9.3 10 3/mcL Normal 4.5-10.8 [facility] Comment on above: Performed By: #### B MP, GFR, ANEU, ADIFF, CBC ####[address] [place], [place] [address] LABORATORYOrdered By: SYSTEM SYSTEM on 10-23-2024 Basophils (Bld) [#/Vol] 0.0 103/mcL Normal 0.0 - 0.3 10^3/mcL AO Workflow SS Basophils/100 WBC (Bld) 0.3 % Normal 0.0 - 2.5 % AO Workflow SS Calcium [Mass/Vol] 9.9 mg/dL Normal 8.4 - 10. 2 mg/dL AO ADM SS Chloride [Moles/Vol] 106 mmol/L Normal 98 - 10 7 mmol/L AO ADM SS CO2 [Moles/Vol] 27 mmol/L Normal 23 - 31 mmol/L AO ADM SS Creatinine [Mass/Vol] 1.66 mg/dL High 0.67 - 1.17 mg/dL AO ADM SS Electrolyte Balance 8.0 mEq/L Normal 4.0 - 15 .0 mEq/L AO ADM SS Eosinophil, Absolute 0.1 103/mcL Normal 0.0 - 0 .7 10^3/mcL AO Workflow SS Eosinophils/100 WBC (Bld) 1.2 % Normal 0.0 - 6.0 % AO Workflow SS Erythrocyte distribution width (RBC) [Ratio] 14.5 % Normal 11.5 - 15.5 % AO Workflow SS Estimated Glomerular Filtration Rate 42 ml/min/1.73sqm Invalid Interpretation Code AO Chemistry S [...] race factor to calculate the eGFR results. Glucose [Mass/Vol] 103 mg/dL Normal 83 - 110 mg/dL AO ADM SS Hematocrit (Bld) [Volume fraction] 41.4 % Normal 40.0 - 52.0 % AO Workflow SS Hemoglobin (Bld) [Mass/Vol] 13.8 G/dL Normal 13.0 - 17.5 G/dL AO Workflow SS Lymphocytes (Bld) [#/Vol] 0.8 103/mcL Low 0.9 - 4.3 10^3/mcL AO Workflow SS Lymphocytes/100 WBC (Bld) 8.3 % Low 20.0 - 40.0 % AO Workflow SS MCH (RBC) [Entitic mass] 35.2 pg High 27. 0 - 33.0 pg AO Workflow SS MCHC 33.3 G/dL Normal 32.0 - 36.0 G/dL AO Workflow SS MCV (RBC) [Entitic vol] 105.8 fL High 81.0 - 100.0 fL AO Workflow SS Monocytes (Bld) [#/Vol] 1.2 103/mcL Normal 0.1 - 1.4 10^3/mcL AO Workflow SS Monocytes/100 WBC (Bld) 12.9 % Normal 2.0 - 13.0 % AO Workflow SS Neutrophils (Bld) [#/Vol] 7.2 103/mcL Normal 2.3 - 8.1 10^3/mcL AO Workflow SS Neutrophils/100 WBC (Bld) 77.3 % High 50.0 - 75.0 % AO Workflow SS Platelet mean volume (Bld) [Entitic vol] 6.9 fL Normal 6.4 - 10.5 fL AO Workflow SS Platelets (Bld) [#/Vol] 175 103/mcL Normal 150 - 450 10^3/mcL AO Workflow SS Potassium [Moles/Vol] 4.8 mmol/L Normal 3.5 - 5.1 mmol/L AO ADM SS RBC (Bld) [#/Vol] 3.91 106/mcL Low 4.50 - 6.0 0 10^6/mcL AO Workflow SS Sodium [Moles/Vol] 141 mmol/L Normal 136 - 145 mmol/L AO ADM SS Urea nitrogen [Mass/Vol] 38 mg/dL High 7 - 18 mg/d L AO ADM SS Urea nitrogen/Creatinine [Mass ratio] 23 ratio Normal 7 - 27 ratio AO ADM SS WBC (Bld) [#/Vol] 9.3 103/mcL Normal 4.5 - 10.8 10^3/mcL AO Workflow SS .Auto Diffon 10-21-2024 Basophil, Absolute 0.0 10 3/mcL Normal 0.0-0.3 [facility] Comment on above: Performed By: #### B MP, ADIFF, GFR, ANEU, CBC, RFP #### [address] [address] Basophils/100 WBC (Bld) 0.3 % Normal 0.0-2.5 [facility] Comment on above: Performed By: #### B MP, ADIFF, GFR, ANEU, CBC, RFP #### [address] [address] Eosinophil, Absolute 0.2 10 3/mcL Normal 0.0-0.7 [facility] Comment on above: Performed By: #### B MP, ADIFF, GFR, ANEU, CBC, RFP #### [address] [address] Eosinophils/100 WBC (Bld) 2.3 % Normal 0.0-6.0 [facility] Comment on above: Performed By: #### B MP, ADIFF, GFR, ANEU, CBC, RFP #### [address] [place], [place] [address] Lymphocyte, Absolute 0.7 10 3/mcL Low 0.9-4.3 [facility] Comment on above: Performed By: #### B MP, ADIFF, GFR, ANEU, CBC, RFP #### [facility] [address] [place] [address] Lymphocytes/100 WBC (Bld) 9.0 % Low 20.0-40.0 [facility] Comment on above: Performed By: #### B MP, ADIFF, GFR, ANEU, CBC, RFP #### [place] [id number] [place] [address] Monocyte, Absolute 0.8 10 3/mcL Normal 0.1-1.4 [facility] Comment on above: Performed By: #### B MP, ADIFF, GFR, ANEU, CBC, RFP #### [address] [address] Monocytes/100 WBC (Bld) 11.1 % Normal 2.0-13.0 [facility] Comment on above: Performed By: #### B MP, ADIFF, GFR, ANEU, CBC, RFP #### [address] [address] Neutrophils/100 WBC (Bld) 77.3 % High 50.0-75.0 [facility] Comment on above: Performed By: #### B MP, ADIFF, GFR, ANEU, CBC, RFP #### [address] [address] .GFRon 10-21-2024 Estimated Glomerular Filtration Rate 35 ml/min/1.73sqm Normal [facility] Comment on above: Result Comment: Stages of [...] calculate the eGFR results. Performed By: #### B MP, ADIFF, GFR, ANEU, CBC, RFP #### [address] [address] .NEUABSon 10-21-2024 Neutrophil, Absolute 5.7 10 3/mcL Normal 2.3-8.1 [facility] Comment on above: Performed By: #### B MP, ADIFF, GFR, ANEU, CBC, RFP #### [address] [address] BMPon 10-21-2024 BUN/Creatinine Ratio 12.9 ratio Normal 10.0-22.0 [facility] Comment on above: Performed By: #### B MP, ADIFF, GFR, ANEU, CBC, RFP #### [place] [id number] Calcium [Mass/Vol] 8.8 mg/dL Normal 8.7-10.4 [facility] Comment on above: Performed By: #### B MP, ADIFF, GFR, ANEU, CBC, RFP #### [place] [id number] Chloride [Moles/Vol] 110 mmol/L Normal 98-110 [facility] Comment on above: Performed By: #### B MP, ADIFF, GFR, ANEU, CBC, RFP #### [place] [id number] CO2 [Moles/Vol] 22 mmol/L Normal 22-32 [facility] Comment on above: Performed By: #### B MP, ADIFF, GFR, ANEU, CBC, RFP #### [place] [id number] Creatinine [Mass/Vol] 1.94 mg/dL High 0.60-1.40 [facility] Comment on above: Result Comment: Test ing performed on Surfkitchen analyzer using enzymatic creatinine methodology. Performed By: #### B MP, ADIFF, GFR, ANEU, CBC, RFP #### [place] [id number] Electrolyte Balance 10.0 mEq/L Normal 4.0-15.0 [facility] Comment on above: Performed By: #### B MP, ADIFF, GFR, ANEU, CBC, RFP #### [place] [id number] Glucose [Mass/Vol] 83 mg/dL Normal 82-115 [facility] Comment on above: Performed By: #### B MP, ADIFF, GFR, ANEU, CBC, RFP #### [place] [id number] Potassium [Moles/Vol] 5.0 mmol/L Normal 3.5-5.0 [facility] Comment on above: Result Comment: Spec imen slightly hemolyzed. Performed By: #### B MP, ADIFF, GFR, ANEU, CBC, RFP #### [place] [id number] Sodium [Moles/Vol] 142 mmol/L Normal 136-145 [facility] Comment on above: Performed By: #### B MP, ADIFF, GFR, ANEU, CBC, RFP #### [place] [id number] Urea nitrogen [Mass/Vol] 25.0 mg/dL High 8.0-22.0 [facility] Comment on above: Performed By: #### B MP, ADIFF, GFR, ANEU, CBC, RFP #### [address] [address] CBCon 10-21-2024 Erythrocyte distribution width (RBC) [Ratio] 14.7 % Normal 11.5-15.5 [facility] Comment on above: Performed By: #### B MP, ADIFF, GFR, ANEU, CBC, RFP #### [place] [id number] Hematocrit (Bld) [Volume fraction] 39.1 % Low 40.0-52.0 [facility] Comment on above: Performed By: #### B MP, ADIFF, GFR, ANEU, CBC, RFP #### [place] [id number] Hgb 13.2 G/dL Normal 13.0-17.5 [facility] Comment on above: Performed By: #### B MP, ADIFF, GFR, ANEU, CBC, RFP #### [place] [address] MCH (RBC) [Entitic mass] 35.9 pg High 27.0-33.0 [facility] Comment on above: Performed By: #### B MP, ADIFF, GFR, ANEU, CBC, RFP #### [place] [address] MCHC 33.8 G/dL Normal 32.0-36.0 [facility] Comment on above: Performed By: #### B MP, ADIFF, GFR, ANEU, CBC, RFP #### [place] [address] MCV (RBC) [Entitic vol] 106.0 fL High 81.0-100.0 [facility] Comment on above: Performed By: #### B MP, ADIFF, GFR, ANEU, CBC, RFP #### [place] [address] Platelet 152 10 3/mcL Normal 150-450 [facility] Comment on above: Performed By: #### B MP, ADIFF, GFR, ANEU, CBC, RFP #### [place] [address] Platelet mean volume (Bld) [Entitic vol] 7.4 fL Normal 6.4-10.5 [facility] Comment on above: Performed By: #### B MP, ADIFF, GFR, ANEU, CBC, RFP #### [place] [address] RBC 3.69 10 6/mcL Low 4.50-6.00 [facility] Comment on above: Performed By: #### B MP, ADIFF, GFR, ANEU, CBC, RFP #### [place] [address] WBC 7.4 10 3/mcL Normal 4.5-10.8 [facility] Comment on above: Performed By: #### B MP, ADIFF, GFR, ANEU, CBC, RFP #### [place] [address] LABORATORYOrdered By: SYSTEM SYSTEM on 10-21-2024 Basophils (Bld) [#/Vol] 0.0 103/mcL Normal 0.0 - 0.3 10^3/mcL Workflow SS Basophils/100 WBC (Bld) 0.3 % Normal 0.0 - 2.5 % AH Workflow SS Calcium [Mass/Vol] 8.8 mg/dL Normal 8.7 - 10. 4 mg/dL ADM SS Chloride [Moles/Vol] 110 mmol/L Normal 98 - 11 0 mEq/L ADM SS CO2 [Moles/Vol] 22 mmol/L Normal 22 - 32 mEq/L ADM SS Creatinine [Mass/Vol] 1.94 mg/dL High 0.60 - 1.40 mg/dL ADM SS Comment on above: Interpretive Data: T esting performed on Surfkitchen analyzer using enzymatic creatinine methodology. Electrolyte Balance 10.0 mEq/L Normal 4.0 - 15 .0 mEq/L ADM SS Eosinophils (Bld) [#/Vol] 0.2 103/mcL Normal 0.0 - 0.7 10^3/mcL Workflow SS Eosinophils/100 WBC (Bld) 2.3 % Normal 0.0 - 6.0 % Workflow SS Erythrocyte distribution width (RBC) [Ratio] 14.7 % Normal 11.5 - 15.5 % Workflow SS Estimated Glomerular Filtration Rate 35 ml/min/1.73sqm Invalid Interpretation Code Chemistry S Comment on above: Interpretive Data: [...] race factor to calculate the eGFR results. Glucose [Mass/Vol] 83 mg/dL Normal 82 - 115 mg/dL ADM SS Hematocrit (Bld) [Volume fraction] 39.1 % Low 40.0 - 52.0 % AH Workflow SS Hemoglobin (Bld) [Mass/Vol] 13.2 G/dL Normal 13.0 - 17.5 G/dL AH Workflow SS Lymphocytes (Bld) [#/Vol] 0.7 103/mcL Low 0.9 - 4.3 10^3/mcL AH Workflow SS Lymphocytes/100 WBC (Bld) 9.0 % Low 20.0 - 40.0 % AH Workflow SS MCH (RBC) [Entitic mass] 35.9 pg High 27. 0 - 33.0 pg AH Workflow SS MCHC 33.8 G/dL Normal 32.0 - 36.0 G/dL AH Workflow SS MCV (RBC) [Entitic vol] 106.0 fL High 81.0 - 100.0 fL AH Workflow SS Monocytes (Bld) [#/Vol] 0.8 103/mcL Normal 0.1 - 1.4 10^3/mcL AH Workflow SS Monocytes/100 WBC (Bld) 11.1 % Normal 2.0 - 13.0 % AH Workflow SS Neutrophils (Bld) [#/Vol] 5.7 103/mcL Normal 2.3 - 8.1 10^3/mcL AH Workflow SS Neutrophils/100 WBC (Bld) 77.3 % High 50.0 - 75.0 % AH Workflow SS Platelet mean volume (Bld) [Entitic vol] 7.4 fL Normal 6.4 - 10.5 fL AH Workflow SS Platelets (Bld) [#/Vol] 152 103/mcL Normal 150 - 450 10^3/mcL AH Workflow SS Potassium [Moles/Vol] 5.0 mmol/L Normal 3.5 - 5.0 mEq/L AH ADM SS Comment on above: Result Comment: Spec imen slightly hemolyzed. RBC (Bld) [#/Vol] 3.69 106/mcL Low 4.50 - 6.0 0 10^6/mcL AH Workflow SS Sodium [Moles/Vol] 142 mmol/L Normal 136 - 145 mEq/L AH ADM SS Urea nitrogen [Mass/Vol] 25.0 mg/dL High 8.0 - 22.0 mg/dL AH ADM SS Urea nitrogen/Creatinine [Mass ratio] 12.9 ratio Normal 10.0 - 22.0 ratio AH ADM SS WBC (Bld) [#/Vol] 7.4 103/mcL Normal 4.5 - 10.8 10^3/mcL Workflow SS .Auto Diffon 10-20-2024 Basophil, Absolute 0.0 10 3/mcL Normal 0.0-0.3 [facility] Comment on above: Performed By: #### B MP, ADIFF, GFR, ANEU, CBC, RFP #### [address] [address] Basophils/100 WBC (Bld) 0.2 % Normal 0.0-2.5 [facility] Comment on above: Performed By: #### B MP, ADIFF, GFR, ANEU, CBC, RFP #### [address] [address] Eosinophil, Absolute 0.1 10 3/mcL Normal 0.0-0.7 [facility] Comment on above: Performed By: #### B MP, ADIFF, GFR, ANEU, CBC, RFP #### [address] [address] Eosinophils/100 WBC (Bld) 1.0 % Normal 0.0-6.0 [facility] Comment on above: Performed By: #### B MP, ADIFF, GFR, ANEU, CBC, RFP #### [address] [address] Lymphocyte, Absolute 0.6 10 3/mcL Low 0.9-4.3 [facility] Comment on above: Performed By: #### B MP, ADIFF, GFR, ANEU, CBC, RFP #### [address] [address] Lymphocytes/100 WBC (Bld) 6.8 % Low 20.0-40.0 [facility] Comment on above: Performed By: #### B MP, ADIFF, GFR, ANEU, CBC, RFP #### [address] [address] Monocyte, Absolute 1.2 10 3/mcL Normal 0.1-1.4 [facility] Comment on above: Performed By: #### B MP, ADIFF, GFR, ANEU, CBC, RFP #### [address] [address] Monocytes/100 WBC (Bld) 12.6 % Normal 2.0-13.0 [facility] Comment on above: Performed By: #### B MP, ADIFF, GFR, ANEU, CBC, RFP #### [address] [address] Neutrophils/100 WBC (Bld) 79.4 % High 50.0-75.0 [facility] Comment on above: Performed By: #### B MP, ADIFF, GFR, ANEU, CBC, RFP #### [address] [address] .GFRon 10-20-2024 Estimated Glomerular Filtration Rate 22 ml/min/1.73sqm Normal [facility] Comment on above: Result Comment: Stages of [...] calculate the eGFR results. Performed By: #### B MP, ADIFF, GFR, ANEU, CBC, RFP #### [address] [address] .NEUABSon 10-20-2024 Neutrophil, Absolute 7.4 10 3/mcL Normal 2.3-8.1 [facility] Comment on above: Performed By: #### B MP, ADIFF, GFR, ANEU, CBC, RFP #### [address] [address] BMPon 10-20-2024 BUN/Creatinine Ratio 11.3 ratio Normal 10.0-22.0 [facility] Comment on above: Performed By: #### B MP, ADIFF, GFR, ANEU, CBC, RFP #### [address] [address] Calcium [Mass/Vol] 8.9 mg/dL Normal 8.7-10.4 [facility] Comment on above: Performed By: #### B MP, ADIFF, GFR, ANEU, CBC, RFP #### [address] [address] Chloride [Moles/Vol] 108 mmol/L Normal 98-110 [facility] Comment on above: Performed By: #### B MP, ADIFF, GFR, ANEU, CBC, RFP #### [address] [address] CO2 [Moles/Vol] 24 mmol/L Normal 22-32 [facility] Comment on above: Performed By: #### B MP, ADIFF, GFR, ANEU, CBC, RFP #### [address] [address] Creatinine [Mass/Vol] 2.82 mg/dL High 0.60-1.40 [facility] Comment on above: Result Comment: Test ing performed on Surfkitchen analyzer using enzymatic creatinine methodology. Performed By: #### B MP, ADIFF, GFR, ANEU, CBC, RFP #### [address] [address] Electrolyte Balance 9.0 mEq/L Normal 4.0-15.0 [facility] Comment on above: Performed By: #### B MP, ADIFF, GFR, ANEU, CBC, RFP #### [address] [address] Glucose [Mass/Vol] 83 mg/dL Normal 82-115 [facility] Comment on above: Performed By: #### B MP, ADIFF, GFR, ANEU, CBC, RFP #### [address] [address] Potassium [Moles/Vol] 4.9 mmol/L Normal 3.5-5.0 [facility] Comment on above: Performed By: #### B MP, ADIFF, GFR, ANEU, CBC, RFP #### [address] [address] Sodium [Moles/Vol] 141 mmol/L Normal 136-145 [facility] Comment on above: Performed By: #### B MP, ADIFF, GFR, ANEU, CBC, RFP #### [place] [address] Urea nitrogen [Mass/Vol] 32.0 mg/dL High 8.0-22.0 [facility] Comment on above: Performed By: #### B MP, ADIFF, GFR, ANEU, CBC, RFP #### [place] [id number] CBCon 10-20-2024 Erythrocyte distribution width (RBC) [Ratio] 15.1 % Normal 11.5-15.5 [facility] Comment on above: Performed By: #### B MP, ADIFF, GFR, ANEU, CBC, RFP #### [place] [address] Hematocrit (Bld) [Volume fraction] 38.8 % Low 40.0-52.0 [facility] Comment on above: Performed By: #### B MP, ADIFF, GFR, ANEU, CBC, RFP #### [place] [address] Hgb 13.0 G/dL Normal 13.0-17.5 [facility] Comment on above: Performed By: #### B MP, ADIFF, GFR, ANEU, CBC, RFP #### [place] [address] MCH (RBC) [Entitic mass] 35.7 pg High 27.0-33.0 [facility] Comment on above: Performed By: #### B MP, ADIFF, GFR, ANEU, CBC, RFP #### [place] [address] MCHC 33.5 G/dL Normal 32.0-36.0 [facility] Comment on above: Performed By: #### B MP, ADIFF, GFR, ANEU, CBC, RFP #### [place] [address] MCV (RBC) [Entitic vol] 106.5 fL High 81.0-100.0 [facility] Comment on above: Performed By: #### B MP, ADIFF, GFR, ANEU, CBC, RFP #### [address] [place], [place] [address] Platelet 138 10 3/mcL Low 150-450 [facility] Comment on above: Performed By: #### B MP, ADIFF, GFR, ANEU, CBC, RFP #### [facility] [address] [place], [place] [id number] Platelet mean volume (Bld) [Entitic vol] 6.8 fL Normal 6.4-10.5 [facility] Comment on above: Performed By: #### B MP, ADIFF, GFR, ANEU, CBC, RFP #### [place] [id number] [place] [address] RBC 3.64 10 6/mcL Low 4.50-6.00 [facility] Comment on above: Performed By: #### B MP, ADIFF, GFR, ANEU, CBC, RFP #### [place] [id number] WBC 9.3 10 3/mcL Normal 4.5-10.8 [facility] Comment on above: Performed By: #### B MP, ADIFF, GFR, ANEU, CBC, RFP #### [place] [address] LABORATORYOrdered By: SYSTEM SYSTEM on 10-20-2024 Basophils (Bld) [#/Vol] 0.0 103/mcL Normal 0.0 - 0.3 10^3/mcL AH Workflow SS Basophils/100 WBC (Bld) 0.2 % Normal 0.0 - 2.5 % AH Workflow SS Calcium [Mass/Vol] 8.9 mg/dL Normal 8.7 - 10. 4 mg/dL ADM SS Chloride [Moles/Vol] 108 mmol/L Normal 98 - 11 0 mEq/L ADM SS CO2 [Moles/Vol] 24 mmol/L Normal 22 - 32 mEq/L ADM SS Creatinine [Mass/Vol] 2.82 mg/dL High 0.60 - 1.40 mg/dL ADM SS Comment on above: Interpretive Data: T esting performed on Surfkitchen analyzer using enzymatic creatinine methodology. Electrolyte Balance 9.0 mEq/L Normal 4.0 - 15 .0 mEq/L ADM SS Eosinophils (Bld) [#/Vol] 0.1 103/mcL Normal 0.0 - 0.7 10^3/mcL AH Workflow SS Eosinophils/100 WBC (Bld) 1.0 % Normal 0.0 - 6.0 % AH Workflow SS Erythrocyte distribution width (RBC) [Ratio] 15.1 % Normal 11.5 - 15.5 % AH Workflow SS Estimated Glomerular Filtration Rate 22 ml/min/1.73sqm Invalid Interpretation Code Chemistry S Comment on above: Interpretive Data: [...] race factor to calculate the eGFR results. Glucose [Mass/Vol] 83 mg/dL Normal 82 - 115 mg/dL ADM SS Hematocrit (Bld) [Volume fraction] 38.8 % Low 40.0 - 52.0 % AH Workflow SS Hemoglobin (Bld) [Mass/Vol] 13.0 G/dL Normal 13.0 - 17.5 G/dL AH Workflow SS Lymphocytes (Bld) [#/Vol] 0.6 103/mcL Low 0.9 - 4.3 10^3/mcL AH Workflow SS Lymphocytes/100 WBC (Bld) 6.8 % Low 20.0 - 40.0 % AH Workflow SS MCH (RBC) [Entitic mass] 35.7 pg High 27. 0 - 33.0 pg AH Workflow SS MCHC 33.5 G/dL Normal 32.0 - 36.0 G/dL AH Workflow SS MCV (RBC) [Entitic vol] 106.5 fL High 81.0 - 100.0 fL Workflow SS Monocytes (Bld) [#/Vol] 1.2 103/mcL Normal 0.1 - 1.4 10^3/mcL AH Workflow SS Monocytes/100 WBC (Bld) 12.6 % Normal 2.0 - 13.0 % AH Workflow SS Neutrophils (Bld) [#/Vol] 7.4 103/mcL Normal 2.3 - 8.1 10^3/mcL AH Workflow SS Neutrophils/100 WBC (Bld) 79.4 % High 50.0 - 75.0 % AH Workflow SS Platelet mean volume (Bld) [Entitic vol] 6.8 fL Normal 6.4 - 10.5 fL AH Workflow SS Platelets (Bld) [#/Vol] 138 103/mcL Low 150 - 450 10^3/mcL AH Workflow SS Potassium [Moles/Vol] 4.9 mmol/L Normal 3.5 - 5.0 mEq/L AH ADM SS RBC (Bld) [#/Vol] 3.64 106/mcL Low 4.50 - 6.0 0 10^6/mcL AH Workflow SS Sodium [Moles/Vol] 141 mmol/L Normal 136 - 145 mEq/L AH ADM SS Urea nitrogen [Mass/Vol] 32.0 mg/dL High 8.0 - 22.0 mg/dL AH ADM SS Urea nitrogen/Creatinine [Mass ratio] 11.3 ratio Normal 10.0 - 22.0 ratio AH ADM SS WBC (Bld) [#/Vol] 9.3 103/mcL Normal 4.5 - 10.8 10^3/mcL Workflow SS No Panel Informationon 10-20 Culture Urine No growth to date [facility] XR RETROGRADE PYELOGRAMon XR RETROGRADE PYELOGRAM ORIGINAL EXAMINATION: SPOT FLUOROSCOPIC IMAGES 10/20/2024 12:54 pm TECHNIQUE: Fluoroscopy was provided by the radiology department for procedure. Radiologist was not present during examination. FLUOROSCOPY DOSE AND TYPE: Radiation Exposure Index: Kerma mGy, 2.55 mGy COMPARISON: None HISTORY: ORDERING SYSTEM PROVIDED HISTORY: Reason for Exam: RT KIDNEY STONE Intraprocedural imaging. FINDINGS: Spot intraoperative images are obtained demonstrating performance of right retrograde pyelogram and right stent placement. IMPRESSION: Intraprocedural fluoroscopic spot images as above. See separate procedure report for more information. Interpreted by: Timmy Villagomez DO Preliminary Report By: Timmy Villagomez DO Electronically signed By Timmy Villagomez DO Dictated Date: 10/20/2024 1:52:51 PM Prelim Date: 10/20/2024 1:53:46 PM Sign Date: 10/20/2024 1:53:46 PM Ordering Provider: BALTA Rodrigez [facility] .Auto Diffon 10-19-2024 Basophil, Absolute 0.0 10 3/mcL Normal 0.0-0.3 [facility] Comment on above: Performed By: #### B MP, ADIFF, GFR, ANEU, CBC, RFP #### [address] [address] Basophils/100 WBC (Bld) 0.2 % Normal 0.0-2.5 [facility] Comment on above: Performed By: #### B MP, ADIFF, GFR, ANEU, CBC, RFP #### [address] [address] Eosinophil, Absolute 0.1 10 3/mcL Normal 0.0-0.7 [facility] Comment on above: Performed By: #### B MP, ADIFF, GFR, ANEU, CBC, RFP #### [address] [address] Eosinophils/100 WBC (Bld) 1.0 % Normal 0.0-6.0 [facility] Comment on above: Performed By: #### B MP, ADIFF, GFR, ANEU, CBC, RFP #### [address] [address] Lymphocyte, Absolute 0.6 10 3/mcL Low 0.9-4.3 [facility] Comment on above: Performed By: #### B MP, ADIFF, GFR, ANEU, CBC, RFP #### [address] [address] Lymphocytes/100 WBC (Bld) 7.1 % Low 20.0-40.0 [facility] Comment on above: Performed By: #### B MP, ADIFF, GFR, ANEU, CBC, RFP #### [address] [address] Monocyte, Absolute 1.0 10 3/mcL Normal 0.1-1.4 [facility] Comment on above: Performed By: #### B MP, ADIFF, GFR, ANEU, CBC, RFP #### [address] [address] Monocytes/100 WBC (Bld) 11.7 % Normal 2.0-13.0 [facility] Comment on above: Performed By: #### B MP, ADIFF, GFR, ANEU, CBC, RFP #### [address] [address] Neutrophils/100 WBC (Bld) 80.0 % High 50.0-75.0 [facility] Comment on above: Performed By: #### B MP, ADIFF, GFR, ANEU, CBC, RFP #### [address] [address] .GFRon 10-19-2024 Estimated Glomerular Filtration Rate 24 ml/min/1.73sqm Normal [facility] Comment on above: Result Comment: Stages of [...] calculate the eGFR results. Performed By: #### B MP, ADIFF, GFR, ANEU, CBC, RFP #### [address] [address] .NEUABSon 10-19-2024 Neutrophil, Absolute 6.8 10 3/mcL Normal 2.3-8.1 [facility] Comment on above: Performed By: #### B MP, ADIFF, GFR, ANEU, CBC, RFP #### [address] [address] Abdomen/Pelvis without Conto n 10-19-2024 Abdomen/Pelvis without Cont [facility] [address] [place] [address] Abdomen/Pelvis without Cont MR#: [id number] Acct: [id number] Name: FREDY BOX Rep #: [id number] : [id number] M [id number] From: Lucio Krishna MD PCP: Dr. Angela Mera MD Status: REG ER Study: Abdomen/Pelvis without Cont Date of Exam: 06/10 Exam# [id number] Ordering Dr: Juan Manuel Hirsch DO PROCEDURE: ABDOMEN/PELVIS WITHOUT CONT 10/19/2024 REASON FOR EXAM: RIGHT LOWER QUADRANT ABDOMINAL PAIN TECHNIQUE: ABDOMEN/PELVIS WITHOUT CONT Noncontrast technique limits evaluation of the abdominal and pelvic viscera. Coronal and Sagittal reconstruction series were provided. One or more dose reduction techniques were used (e.g., Automated exposure control, adjustment of the mA and/or kV according to patient size, use of iterative reconstruction technique). RADIATION DOSE SUMMARY: CTDlvol: 11.52 mGy DLP: 714.15 mGycm COMPARISON: None FINDINGS: Lung bases: Chronic interstitial changes in the lung bases with granulomatous calcifications, and dependent atelectasis. Dense coronary artery calcifications noted. Liver: Normal size. No obvious mass. Gallbladder: Unremarkable Spleen: Normal size. Pancreas: Normal size. No surrounding inflammation. Adrenals: Unremarkable Kidneys: Left kidney is free of obstructive uropathy or suspicious solid renal lesion. There are scattered simple cortical cysts which need no specific follow-up. The right kidney however shows hydronephrosis and hydroureter with perinephric and Sarah ureteral inflammatory stranding. There is a 1.2 cm calcification in the proximal right ureter seen on axial image 104 and coronal recon image 61. In the distal right ureter there are also 2 other separate stones each measuring a proximally 4 mm seen on coronal recon image 82 and axial images 157 through 162. There are multiple nonobstructing right renal stones measuring between 0.2 and 1.0 cm. There are also multiple simple cortical cysts in the right kidney which need no specific follow-up. Bladder: Bladder distends normally Reproductive Organs: The prostate is not significantly enlarged but shows multiple chunky calcifications suggesting chronic prostatitis. Bowel: Bowel loops are unremarkable. No ileus or obstruction. No acute inflammation. Scattered sigmoid diverticula without CT evidence of acute diverticulitis. Appendix: Normal appendix seen on coronal recon images 45 through 48. Lymph nodes: No suspicious mesenteric or retroperitoneal lymph nodes Vasculature: Peripheral calcifications in the abdominal aorta without aneurysm. Peritoneum / Retroperitoneum: No free fluid or air Bones: Degenerative bony changes Prominent right inguinal hernia which contains fat and the majority of the terminal ileum. No acute inflammation is noted. There is a small fat containing left inguinal hernia. CT/Abdomen/Pelvis without Cont IMPRESSION: Right-sided hydronephrosis and hydroureter with perinephric and Sarah ureteral inflammatory stranding. There is a 1.2 cm stone in the proximal right ureter and 2 separate 4 mm stones in the distal right ureter. Urologic consultation recommended Prominent right inguinal hernia containing a majority of the terminal ileum. However there is no acute inflammation or evidence of associated ileus or obstruction Bilateral nonobstructing renal stones, bilateral cortical cysts, no specific follow-up needed. No free intraperitoneal fluid, air, or suspicious adenopathy, normal appendix visualized Degenerative bony changes Findings: Multiple obstructing right ureteral stones, right inguinal hernia containing terminal ileum The critical information above was relayed directly by me by telephone to Juan M Hirsch on 10/19/2024 at 9:08 am with readback verification. gs: Reading Location: [id number] CC: Dr. Juan M Hirsch DO; Dr. Angela Mera MD [employer] Operator: Signed Normal [facility] Absolute lymphocyte countOrd ered By: Juan M Hirsch on 10-19-2024 Lymphocytes Auto (Unsp spec) [#/Vol] 0.68 10*3/uL Low 0.83-4.51 [facility] Absolute neutrophil countOrd ered By: Juan M Hirsch on 10-19-2024 Neutrophils (Bld) [#/Vol] 10.6 10*3/uL High 2.0-7.7 [facility] Anion gap in Serum or Plasma Ordered By: Juan M Hirsch on 10-19-2024 Anion gap [Moles/Vol] 13 mmol/L 5-15 [facility] Automated lymphocyte count a s percentage of total leukocytesOrdered By: Juan M Hirsch on 10-19-2024 Lymphocytes/100 WBC Auto (Unsp spec) 5.4 % Low 19-41 [facility] BMPon 10-19-2024 BUN/Creatinine Ratio 12.4 ratio Normal 10.0-22.0 [facility] Comment on above: Performed By: #### B MP, ADIFF, GFR, ANEU, CBC, RFP #### [address] [address] Calcium [Mass/Vol] 8.8 mg/dL Normal 8.7-10.4 [facility] Comment on above: Performed By: #### B MP, ADIFF, GFR, ANEU, CBC, RFP #### [address] [address] Chloride [Moles/Vol] 108 mmol/L Normal 98-110 [facility] Comment on above: Performed By: #### B MP, ADIFF, GFR, ANEU, CBC, RFP #### [address] [address] CO2 [Moles/Vol] 27 mmol/L Normal 22-32 [facility] Comment on above: Performed By: #### B MP, ADIFF, GFR, ANEU, CBC, RFP #### [address] [address] Creatinine [Mass/Vol] 2.66 mg/dL High 0.60-1.40 [facility] Comment on above: Result Comment: Test ing performed on Surfkitchen analyzer using enzymatic creatinine methodology. Performed By: #### B MP, ADIFF, GFR, ANEU, CBC, RFP #### [address] [address] Electrolyte Balance 8.0 mEq/L Normal 4.0-15.0 [facility] Comment on above: Performed By: #### B MP, ADIFF, GFR, ANEU, CBC, RFP #### [address] [address] Glucose [Mass/Vol] 99 mg/dL Normal 82-115 [facility] Comment on above: Performed By: #### B MP, ADIFF, GFR, ANEU, CBC, RFP #### [address] [address] Potassium [Moles/Vol] 4.9 mmol/L Normal 3.5-5.0 [facility] Comment on above: Performed By: #### B MP, ADIFF, GFR, ANEU, CBC, RFP #### [address] [address] Sodium [Moles/Vol] 143 mmol/L Normal 136-145 [facility] Comment on above: Performed By: #### B MP, ADIFF, GFR, ANEU, CBC, RFP #### [address] [address] Urea nitrogen [Mass/Vol] 33.0 mg/dL High 8.0-22.0 [facility] Comment on above: Performed By: #### B MP, ADIFF, GFR, ANEU, CBC, RFP #### [address] [address] BUN/creatinine ratioOrdered By: Juan M Hirsch on 10-19-2024 Urea nitrogen/Creatinine [Mass ratio] 18.1 mg/mg 10-20 [facility] Basophil percentageOrdered B y: Juan M Hirsch on 10-19-2024 Basophils/100 WBC (Bld) 0.2 % 0-1 [facility] Bilirubin Test strip Ql (U)O rdered By: Juan M Hirsch on 10-19-2024 Bilirubin Ql (U) Negative Negative [facility] Bilirubin, totalOrdered By: Juan M Hirsch on 10-19-2024 Bilirubin [Mass/Vol] 0.67 mg/dL 0.00-1.30 [facility] CBCon 10-19-2024 Erythrocyte distribution width (RBC) [Ratio] 14.8 % Normal 11.5-15.5 [facility] Comment on above: Performed By: #### B MP, ADIFF, GFR, ANEU, CBC, RFP #### [address] [address] Hematocrit (Bld) [Volume fraction] 40.9 % Normal 40.0-52.0 [facility] Comment on above: Performed By: #### B MP, ADIFF, GFR, ANEU, CBC, RFP #### [address] [address] Hgb 14.0 G/dL Normal 13.0-17.5 [facility] Comment on above: Performed By: #### B MP, ADIFF, GFR, ANEU, CBC, RFP #### [place] [id number] MCH (RBC) [Entitic mass] 36.2 pg High 27.0-33.0 [facility] Comment on above: Performed By: #### B MP, ADIFF, GFR, ANEU, CBC, RFP #### [place] [address] MCHC 34.3 G/dL Normal 32.0-36.0 [facility] Comment on above: Performed By: #### B MP, ADIFF, GFR, ANEU, CBC, RFP #### [place] [address] MCV (RBC) [Entitic vol] 105.5 fL High 81.0-100.0 [facility] Comment on above: Performed By: #### B MP, ADIFF, GFR, ANEU, CBC, RFP #### [place] [address] Platelet 145 10 3/mcL Low 150-450 [facility] Comment on above: Performed By: #### B MP, ADIFF, GFR, ANEU, CBC, RFP #### [place] [address] Platelet mean volume (Bld) [Entitic vol] 6.6 fL Normal 6.4-10.5 [facility] Comment on above: Performed By: #### B MP, ADIFF, GFR, ANEU, CBC, RFP #### [place] [address] RBC 3.88 10 6/mcL Low 4.50-6.00 [facility] Comment on above: Performed By: #### B MP, ADIFF, GFR, ANEU, CBC, RFP #### [place] [address] WBC 8.5 10 3/mcL Normal 4.5-10.8 [facility] Comment on above: Performed By: #### B MP, ADIFF, GFR, ANEU, CBC, RFP #### [facility] [address] [place], [place] [address] CBC W/Diff, Automatedon 08-0 3-2025 Absolute Lymph 0.68 X10 3/uL Low 0.83-4.51 [facility] Comment on above: Performed By: #### L 501.2450, L500.4050, L503.6005, L100.0100 #### [facility] [address] [place], [address] Absolute Neut 10.6 X10 3/uL High 2.0-7.7 [facility] Comment on above: Performed By: #### L 501.2450, L500.4050, L503.6005, L100.0100 #### [facility] [address] [place], [address] Basophils/100 WBC (Bld) 0.2 % Normal 0-1 [facility] Comment on above: Performed By: #### L 501.2450, L500.4050, L503.6005, L100.0100 #### [facility] [address] [place], [address] Eosinophils/100 WBC (Bld) 0.2 % Normal 0-5 [facility] Comment on above: Performed By: #### L 501.2450, L500.4050, L503.6005, L100.0100 #### [facility] [address] [place], [address] Erythrocyte distribution width (RBC) [Ratio] 14.4 % Normal 11.6-14.6 [facility] Comment on above: Performed By: #### L 501.2450, L500.4050, L503.6005, L100.0100 #### [facility] [address] [place], [address] Hematocrit (Bld) [Volume fraction] 46.7 % Normal 40-54 [facility] Comment on above: Performed By: #### L 501.2450, [id number], L503.6005, L100.0100 #### [facility] [address] [place], [address] Hemoglobin (Bld) [Mass/Vol] 15.7 g/dL Normal 13.0-16.5 [facility] Comment on above: Performed By: #### L 501.2450, L500.4050, L503.6005, L100.0100 #### [facility] [address] [place], [address] IG% 0.400 Normal 0.0-0.9 [facility] Comment on above: Result Comment: IG% - Immature Granulocytes (promyelocytes, myelocytes and metamyelocytes) > 1% indicates that a LEFT SHIFT is Present. Performed By: #### L 501.2450, L500.4050, L503.6005, L100.0100 #### [facility] [address] [place], [address] Lymphocytes/100 WBC (Bld) 5.4 % Low 19-41 [facility] Comment on above: Performed By: #### L 501.2450, L500.4050, L503.6005, L100.0100 #### [facility] [address] [place], [address] MCH (RBC) [Entitic mass] 35.2 pg High 27.0-32.0 [facility] Comment on above: Performed By: #### L 501.2450, L500.4050, L503.6005, L100.0100 #### [facility] [address] [place], [address] MCHC (RBC) [Mass/Vol] 33.6 g/dL Normal 32-36 [facility] Comment on above: Performed By: #### L 501.2450, L500.4050, L503.6005, L100.0100 #### [facility] [address] [place], [address] MCV (RBC) [Entitic vol] 104.7 fL High 80-94 [facility] Comment on above: Performed By: #### L 501.2450, L500.4050, L503.6005, L100.0100 #### [facility] [address] [place], [address] Monocytes/100 WBC (Bld) 8.8 % Normal 0-10 [facility] Comment on above: Performed By: #### L 501.2450, L500.4050, L503.6005, L100.0100 #### [facility] [address] [place], [address] Neutrophils/100 WBC (Bld) 85.0 % High 47-70 [facility] Comment on above: Performed By: #### L 501.2450, L500.4050, L503.6005, L100.0100 #### [facility] [address] [place], [address] Nucleated RBC (Bld) [#/Vol] 0 10*3/uL Normal 0-5 [facility] Comment on above: Performed By: #### L 501.2450, L500.4050, L503.6005, L100.0100 #### [facility] [address] [place], [address] Platelet mean volume (Bld) [Entitic vol] 9.0 fL Normal 6.2-12.0 [facility] Comment on above: Performed By: #### L 501.2450, L500.4050, L503.6005, L100.0100 #### [facility] [address] [place], [address] Platelets (Bld) [#/Vol] 149 10*3/uL Low 150-450 [facility] Comment on above: Performed By: #### L 501.2450, L500.4050, L503.6005, L100.0100 #### [facility] [address] [place], [address] RBC (Bld) [#/Vol] 4.46 10*6/uL Low 4.6-6.2 [facility] Comment on above: Performed By: #### L 501.2450, L500.4050, L503.6005, L100.0100 #### [facility] [address] [place], [address] RDW SD 56.0 fl High 35.1-43.9 [facility] Comment on above: Performed By: #### L 501.2450, L500.4050, L503.6005, L100.0100 #### [facility] [address] [place], [address] WBC (Bld) [#/Vol] 12.5 10*3/uL High 4.4-11.0 [facility] Comment on above: Performed By: #### L 501.2450, L500.4050, L503.6005, L100.0100 #### [facility] [address] [place], [address] Carbon dioxide, total [Moles /volume] in Central venous bloodOrdered By: Juan M Hirsch on 10-19-2024 CO2 [Moles/Vol] 21.9 mmol/L 21.0-32.0 [facility] Chloride assayOrdered By: Tony Hirsch on 10-19-2024 Chloride [Moles/Vol] 106 mmol/L 98-108 [facility] Comprehensive Metabolic Prof ilon 10-19-2024 Albumin [Mass/Vol] 4.1 g/dL Normal 3.4-4.8 [facility] Comment on above: Performed By: #### L 501.2450, L500.4050, L503.6005, L100.0100 #### [facility] [facility] [address] [place], [address] Albumin/Globulin [Mass ratio] 1.2 {ratio} Normal 0.9-2.4 [facility] Comment on above: Performed By: #### L 501.2450, L500.4050, L503.6005, L100.0100 #### [facility] [address] [place], [address] ALK PHOS 94 U/L Normal 40-129 [facility] Comment on above: Performed By: #### L 501.2450, L500.4050, L503.6005, L100.0100 #### [facility] [address] [place], [address] ALT [Catalytic activity/Vol] 21 U/L Normal <=46 [facility] Comment on above: Performed By: #### L 501.2450, L500.4050, L503.6005, L100.0100 #### [facility] [address] [place], [address] AST [Catalytic activity/Vol] 41 U/L High <=37 [facility] Comment on above: Result Comment: Hemo lysis present, Results??could be affected. ?? Performed By: #### L 501.2450, L500.4050, L503.6005, L100.0100 #### [facility] [address] [place], [address] Bilirubin [Mass/Vol] 0.67 mg/dL Normal 0.00-1.30 [facility] Comment on above: Performed By: #### L 501.2450, L500.4050, L503.6005, L100.0100 #### [facility] [address] [place], [address] BUN/CRE 18.1 RATIO Normal 10-20 [facility] Comment on above: Performed By: #### L 501.2450, L500.4050, L503.6005, L100.0100 #### [facility] [address] [place], [address] Calcium [Mass/Vol] 9.5 mg/dL Normal 7.6-11.0 [facility] Comment on above: Performed By: #### L 501.2450, L500.4050, L503.6005, L100.0100 #### [facility] [address] [place], [address] Chloride [Moles/Vol] 106 mmol/L Normal 98-108 [facility] Comment on above: Performed By: #### L 501.2450, L500.4050, L503.6005, L100.0100 #### [facility] [address] [place], [address] CO2 [Moles/Vol] 21.9 mmol/L Normal 21.0-32.0 [facility] Comment on above: Performed By: #### L 501.2450, L500.4050, L503.6005, L100.0100 #### [facility] [address] [place], [address] Creatinine [Mass/Vol] 2.31 mg/dL High 0.70-1.20 [facility] Comment on above: Performed By: #### L 501.2450, L500.4050, L503.6005, L100.0100 #### [facility] [address] [place], [address] ECRCL 28.52 ml/min Low 50-250 [facility] Comment on above: Performed By: #### L 501.2450, L500.4050, L503.6005, L100.0100 #### [facility] [address] [place], [address] GAP 13 Normal 5-15 [facility] Comment on above: Performed By: #### L 501.2450, L500.4050, L503.6005, L100.0100 #### [facility] [address] [place], [address] GFR/1.73 sq M.predicted among non-blacks MDRD (S/P/Bld) [Vol rate/Area] 28 mL/min/{1.73_m2} Low >60 [facility] Comment on above: Result Comment: mL/m in/1.73m2 CKD-EPI Creatinine Equation (2020) Performed By: #### L 501.2450, L500.4050, L503.6005, L100.0100 #### [facility] [address] [place], [address] Globulin (S) [Mass/Vol] 3.6 g/dL Normal 2.2-4.2 [facility] Comment on above: Performed By: #### L 501.2450, L500.4050, L503.6005, L100.0100 #### [facility] [address] [place], [address] Glucose [Mass/Vol] 113 mg/dL High 70-99 [facility] Comment on above: Performed By: #### L 501.2450, L500.4050, L503.6005, L100.0100 #### [facility] [address] [place], [address] Potassium [Moles/Vol] 5.5 mmol/L High 3.3-5.1 [facility] Comment on above: Result Comment: Hemo lysis present, Results??could be affected. ?? Performed By: #### L 501.2450, L500.4050, L503.6005, L100.0100 #### [facility] [address] [place], [address] Sodium [Moles/Vol] 141 mmol/L Normal 133-145 [facility] Comment on above: Performed By: #### L 501.2450, L500.4050, L503.6005, L100.0100 #### [facility] [address] [place], [address] T PROT 7.7 g/dL Normal 5.9-8.4 [facility] Comment on above: Performed By: #### L 501.2450, L500.4050, L503.6005, L100.0100 #### [facility] [address] [place], [address] Urea nitrogen [Mass/Vol] 42 mg/dL High 4-19 [facility] Comment on above: Performed By: #### L 501.2450, L500.4050, L503.6005, L100.0100 #### [facility] [address] [place], [address] Emergency Department Summary on 10-19-2024 Emergency Department Summary [facility] Medical Records Department [address] [place] [address] Emergency Department Summary 10/19/24 MR#: [id number] Acct: [id number] Name: FREDY BOX Rep #: [id number] : 1945 79 From: Juan M Hirsch DO PCP: Dr. Angela Mera MD Status:REG ER Location: ED HPI History of Present Illness Chief Complaint: Abd Pain Narrative Narrative: Chief complaint and HPI: Right lower quadrant abdominal pain. 79-year-old male with past medical history of dementia, depression, heart failure, HTN, HLD, BPH presents for evaluation right lower quadrant abdominal pain. Onset yesterday. Associated symptoms of nausea without emesis. Endorses constipation as well as diarrhea. Denies any fever, chills, shortness of breath, chest pain, dysuria, hematuria. Has never had any abdominal surgeries. Review of systems: See HPI Medications: As listed on the chart Allergies: As listed on the chart PFSH: Per chart Vital signs: As listed on the chart. Reviewed. Physical exam: Gen: A O x3, NAD Head: Normocephalic, atraumatic Eyes: No sclera icterus, conjunctiva clear ENT: Moist mucous membranes Neck: Trachea midline, No JVD CV: RRR, no murmurs, no peripheral edema Resp: Lungs CTA BL, no w/r/c GI: Abd soft, non-distended, mildly tender to palpation diffusely, no r/r/g : Circumcised penis. No penile tenderness or discharge. No penile or testicular swelling. Normal lie and position of the testicles. No testicular tenderness, masses, or skin changes. Cremasteric reflexes intact and equal bilaterally. No rashes Musc: Full ROM, no deformity Skin: Warm, dry Neuro: Alert, oriented, grossly intact, sensation intact Psych: Cooperative, appropriate mood and affect [facility] Medical History Gout Essential hypertension Hyperlipidemia PSVT (paroxysmal supraventricular tachycardia) DIAN (acute kidney injury) Coronary arteriosclerosis after percutaneous transluminal coronary angioplasty (PTCA) Rhabdomyolysis Dementia CVA (cerebral vascular accident) Kidney calculi Home Medications ???Medication ???Instructions ???Recorded ???Last Taken ???Type allopurinol 300 mg tablet 300 mg PO DAILY gout 04/12/2305/13 History aspirin 81 mg capsule 81 mg PO DAILY heart health 10/18/24 History atorvastatin 20 mg tablet 20 mg PO DAILY cholesterol 4 10/18/24 History donepezil 10 mg tablet 10 mg PO QHS dementia 04/12/2305/13 History memantine 5 mg tablet 5 mg PO BID dementia 04/12/2305/13 History tamsulosin 0.4 mg capsule 0.4 mg PO DAILY urination 04/12/23 10/18/24 History timolol maleate 0.5 % eye drops 1 drp ophthalmic (eye) BID eye 10/18/24 History health losartan 25 mg tablet 25 mg PO DAILY #90 tabs 05/22/23 0 10/18/24 Rx vitamin B complex 1 tab PO DAILY 07/23/23 10/18/24 H istory buspirone 7.5 mg tablet 7.5 mg PO BID 09/11/23 10/18/24 Hi story empagliflozin 10 mg tablet 10 mg PO QAM #90 tabs 09/12/2305/13 Rx (Jardiance) metoprolol succinate 25 mg 25 mg PO BID 12/12/23 10/18/24 His tory tablet,extended release 24 hr latanoprost 0.005 % eye drops 1 drp ophthalmic (eye) QHS 09/18/2 5 10/18/24 History benzonatate 100 mg capsule 100 mg PO Q8H PRN PRN cough Unknown History cyanocobalamin-live r extract tablet 1 tab PO BID 10/19/24 10/18/24 History fluoride (sodium) 1.1 % dental gel 1 applic PO QHS 10/19/24 Unknown History fluticasone furoate 100 1 ea inhalation DAILY 10/19/2405/13 History mcg-vilanterol 25 mcg/dose inhalation powder (Breo Ellipta) garlic 580 mg capsule 48 mg PO BID 10/19/24 10/18/24 His tory omega-3s 300 an-fcw-ako-other 2 cap PO BID 10/19/24 10/18/24 His tory [id number] oil 1,000 mg capsule ([place]-3 Fish Oil) Allergy/AdvReac Type Severity Reaction Status Date / Time No Known Allergies Allergy Verified 10/19/24 07:20 Family History Father , Age 68 Myocardial infarction Brother Cancer Sister Cancer Mother Lung disease Surgical History History of heart artery stent ( 2010) Social History Smoking Status: Never smoker second hand exposure: Yes alcohol intake: never substance use type: does not use caffeine: Yes Type: carbonated beverages and coffee EXAM Physical Exam Const Vital Signs: 10/19/24 07:21 10/19/24 09:20 Temperature 98.6 F Temperature Source Oral Pulse Rate 54 L 52 L Respiratory Rate 18 14 Blood Pressure 183/75 H 118/64 Blood Pressure Mean 111 82 Pulse Ox 98 93 Oxygen Delivery Method Room Air Room Air (more content not included)... Normal [facility] Eosinophil percentageOrdered By: Juan M Hirsch on 10-19-2024 Eosinophils/100 WBC (Bld) 0.2 % 0-5 [facility] Erythrocyte distribution wid th ratioOrdered By: Juan M Hirsch on 10-19-2024 Erythrocyte distribution width (RBC) [Ratio] 14.4 % 11.6-14.6 [facility] Erythrocyte distribution wid th standard deviationOrdered By: Juan M Arceo on 10-19-2024 Erythrocyte distribution width (RBC) [Ratio] 56.0 fl High 35.1-43.9 [facility] Glomerular filtration rate ( GFR) estimation/1.73 sq m using serum, plasma, or whole bOrdered By: Juan M Hirsch on 10-19-2024 GFR/1.73 sq M.predicted among non-blacks MDRD (S/P/Bld) [Vol rate/Area] 28 mL/min/{1.73_m2} Low >60 [facility] Comment on above: mL/min/1.73m2 CKD-EP I Creatinine Equation (2020) Hematocrit Auto (Bld) [Volum e fraction]Ordered By: Juan M Hirsch on 10-19-2024 Hematocrit (Bld) [Volume fraction] 46.7 % 40-54 [facility] Hemoglobin measurementOrdere d By: Juan M Hirsch on 10-19-2024 Hemoglobin (Bld) [Mass/Vol] 15.7 g/dL 13.0-16.5 [facility] Immature granulocytes/100 WB C Auto (Bld)Ordered By: Juan M Hirsch on 10-19-2024 Immature granulocytes/100 WBC (Bld) 0.400 % 0.0-0.9 [facility] Comment on above: IG% - Immature Granu locytes (promyelocytes, myelocytes and metamyelocytes) > 1% indicates that a LEFT SHIFT is Present. Ketones Test strip Ql (U)Ord ered By: Juan M Hirsch on 10-19-2024 Ketones Ql (U) Negative Negative [facility] LABORATORYOrdered By: SYSTEM SYSTEM on 10-19-2024 Basophils (Bld) [#/Vol] 0.0 103/mcL Normal 0.0 - 0.3 10^3/mcL Workflow SS Basophils/100 WBC (Bld) 0.2 % Normal 0.0 - 2.5 % Workflow SS Calcium [Mass/Vol] 8.8 mg/dL Normal 8.7 - 10. 4 mg/dL ADM SS Chloride [Moles/Vol] 108 mmol/L Normal 98 - 11 0 mEq/L ADM SS CO2 [Moles/Vol] 27 mmol/L Normal 22 - 32 mEq/L ADM SS Creatinine [Mass/Vol] 2.66 mg/dL High 0.60 - 1.40 mg/dL ADM SS Comment on above: Interpretive Data: T esting performed on [employer]kit[employer] analyzer using enzymatic creatinine methodology. Electrolyte Balance 8.0 mEq/L Normal 4.0 - 15 .0 mEq/L ADM SS Eosinophils (Bld) [#/Vol] 0.1 103/mcL Normal 0.0 - 0.7 10^3/mcL Workflow SS Eosinophils/100 WBC (Bld) 1.0 % Normal 0.0 - 6.0 % Workflow SS Erythrocyte distribution width (RBC) [Ratio] 14.8 % Normal 11.5 - 15.5 % Workflow SS Estimated Glomerular Filtration Rate 24 ml/min/1.73sqm Invalid Interpretation Code Chemistry S Comment on above: Interpretive Data: [...] race factor to calculate the eGFR results. Glucose [Mass/Vol] 99 mg/dL Normal 82 - 115 mg/dL ADM SS Hematocrit (Bld) [Volume fraction] 40.9 % Normal 40.0 - 52.0 % Workflow SS Hemoglobin (Bld) [Mass/Vol] 14.0 G/dL Normal 13.0 - 17.5 G/dL AH Workflow SS Lactate [Moles/Vol] 0.8 mmol/L Normal 0.5 - 2. 2 mmol/L AH ADM SS Lymphocytes (Bld) [#/Vol] 0.6 103/mcL Low 0.9 - 4.3 10^3/mcL AH Workflow SS Lymphocytes/100 WBC (Bld) 7.1 % Low 20.0 - 40.0 % AH Workflow SS Magnesium [Mass/Vol] 2.2 mg/dL Normal 1.6 - 2 .4 mg/dL AH ADM SS MCH (RBC) [Entitic mass] 36.2 pg High 27. 0 - 33.0 pg Workflow SS MCHC 34.3 G/dL Normal 32.0 - 36.0 G/dL Workflow SS MCV (RBC) [Entitic vol] 105.5 fL High 81.0 - 100.0 fL Workflow SS Monocytes (Bld) [#/Vol] 1.0 103/mcL Normal 0.1 - 1.4 10^3/mcL AH Workflow SS Monocytes/100 WBC (Bld) 11.7 % Normal 2.0 - 13.0 % Workflow SS Neutrophils (Bld) [#/Vol] 6.8 103/mcL Normal 2.3 - 8.1 10^3/mcL AH Workflow SS Neutrophils/100 WBC (Bld) 80.0 % High 50.0 - 75.0 % Workflow SS Platelet mean volume (Bld) [Entitic vol] 6.6 fL Normal 6.4 - 10.5 fL Workflow SS Platelets (Bld) [#/Vol] 145 103/mcL Low 150 - 450 10^3/mcL AH Workflow SS Potassium [Moles/Vol] 4.9 mmol/L Normal 3.5 - 5.0 mEq/L AH ADM SS RBC (Bld) [#/Vol] 3.88 106/mcL Low 4.50 - 6.0 0 10^6/mcL AH Workflow SS Sodium [Moles/Vol] 143 mmol/L Normal 136 - 145 mEq/L ADM SS Urea nitrogen [Mass/Vol] 33.0 mg/dL High 8.0 - 22.0 mg/dL ADM SS Urea nitrogen/Creatinine [Mass ratio] 12.4 ratio Normal 10.0 - 22.0 ratio ADM SS WBC (Bld) [#/Vol] 8.5 103/mcL Normal 4.5 - 10.8 10^3/mcL AH Workflow SS LACon 10-19-2024 Lactic Acid Lvl 0.8 mmol/L Normal 0.5-2.2 [facility] Comment on above: Performed By: #### B MP, ADIFF, GFR, ANEU, CBC, RFP #### [facility] [address] [place] [address] Laboratory - Chemistry and C hemistry - challengeOrdered By: Juan M Hirsch on 10-19-2024 AST [Catalytic activity/Vol] 41 U/L High <38 [facility] Comment on above: Hemolysis present, R esults could be affected. Lactic Acidon 10-19-2024 Lactate [Moles/Vol] 1.2 mmol/L Normal 0.0-2.0 [facility] Comment on above: Order Comment: Y Performed By: #### L 501.2450, L500.4050, L503.6005, L100.0100 #### [facility] [address] [place], [place], [id number] Lactic acid measurementOrder ed By: Juan M Hirsch on 10-19-2024 Lactate [Moles/Vol] 1.2 mmol/L 0.0-2.0 [facility] Lipaseon 10-19-2024 Lipase [Catalytic activity/Vol] 50 U/L Normal 13-75 [facility] Comment on above: Result Comment: Plea se note: LIPASE revised reference range effective 22. New Lipase methodology. Expected to produce lower values than the previous assay method. NEW Reference Range: 13 - 75 U/L Performed By: #### L 501.2450, L500.4050, L503.6005, L100.0100 #### [facility] [address] [place], [place], [id number] Lipase measurementOrdered By : Juan M Hirsch on 10-19-2024 Lipase [Catalytic activity/Vol] 50 U/L 13-75 [facility] Comment on above: Please note:LIPASE r evised reference range effective 22. New Lipase methodology. Expected to produce lower values than the previous assay method. NEW Reference Range: 13 - 75 U/L MCV (mean corpuscular volume ) determinationOrdered By: Juan M Hirsch on 10-19-2024 MCV (RBC) [Entitic vol] 104.7 fL High 80-94 [facility] MGon 10-19-2024 Magnesium [Mass/Vol] 2.2 mg/dL Normal 1.6-2.4 [facility] Comment on above: Performed By: #### B MP, ADIFF, GFR, ANEU, CBC, RFP #### [place] [address] Mean corpuscular hemoglobin (MCH) determinationOrdered By: Juan M Hirsch on 10-19-2024 MCH (RBC) [Entitic mass] 35.2 pg High 27.0-32.0 [facility] Mean corpuscular hemoglobin concentration (MCHC) determinationOrdered By: Juan M Hirsch on 10-19-2024 MCHC (RBC) [Mass/Vol] 33.6 g/dL 32-36 [facility] Mean platelet volume determi nationOrdered By: Juan M Hirsch on 10-19-2024 Platelet mean volume (Bld) [Entitic vol] 9.0 fL 6.2-12.0 [facility] Microscopic analysis of urin e for red blood cells (RBC)Ordered By: Juan M Hirsch on 10-19-2024 Microscopic analysis of urine for red blood cells (RBC) 0-5 SEEN /hpf 0-5 [facility] Monocyte percentageOrdered B y: Juan M Hirsch on 10-19-2024 Monocytes/100 WBC (Bld) 8.8 % 0-10 [facility] Mucus LM Ql (Urine sed)Order ed By: Juan M Hirsch on 10-19-2024 Mucus Ql (Urine sed) 0 SEEN /hpf [facility] Neutrophil percentageOrdered By: Juan M Hirsch on 10-19-2024 Neutrophils/100 WBC (Bld) 85.0 % High 47-70 [facility] Nitrite Test strip Ql (U)Ord ered By: Juan M Hirsch on 10-19-2024 Nitrite Ql (U) Negative Negative [facility] Nucleated red blood cell per centageOrdered By: Juan M Hirsch on 10-19-2024 Nucleated RBC/100 WBC (Bld) [Ratio] 0 % 0-5 [facility] Platelet countOrdered By: Tony Hirsch on 10-19-2024 Platelets (Bld) [#/Vol] 149 10*3/uL Low 150-450 [facility] Potassium measurement (mass/ volume)Ordered By: Juan M Hirsch on 10-19-2024 Potassium (Unsp spec) [Mass/Vol] 5.5 mmol/L High 3.3-5.1 [facility] Comment on above: Hemolysis present, R esults could be affected. Protein Test strip Ql (U)Ord ered By: Juan M Hirsch on 10-19-2024 Protein Ql (U) 30 mg/dl High Negative [facility] RBC Auto (Bld) [#/Vol]Ordere d By: Juan M Hirsch on 10-19-2024 RBC (Bld) [#/Vol] 4.46 10*6/uL Low 4.6-6.2 [facility] Serum creatinine measurement (mass/volume)Ordered By: Juan M Hirsch on 10-19-2024 Creatinine [Mass/Vol] 2.31 mg/dL High 0.70-1.20 [facility] Serum globulin measurementOr dered By: Juan M Hirsch on 10-19-2024 Globulin (S) [Mass/Vol] 3.6 g/dL 2.2-4.2 [facility] Serum glucose measurement (m ass/volume)Ordered By: Juan M Hirsch on 10-19-2024 Glucose [Mass/Vol] 113 mg/dL High 70-99 [facility] Serum or plasma alanine au otransferase (ALT) measurementOrdered By: Juan M Hirsch on 10-19-2024 ALT [Catalytic activity/Vol] 21 U/L <47 [facility] Serum or plasma albumin ender urement (mass/volume)Ordered By: Juan M Arceo on 10-19-2024 Albumin [Mass/Vol] 4.1 g/dL 3.4-4.8 [facility] Serum or plasma albumin/glob ulin mass ratioOrdered By: Juan M Hirsch on 10-19-2024 Albumin/Globulin [Mass ratio] 1.2 {ratio} 0.9-2.4 [facility] Serum or plasma alkaline ana sphatase measurementOrdered By: Juan M Hirsch on 10-19-2024 ALP [Catalytic activity/Vol] 94 U/L 40-129 [facility] Serum or plasma calcium ender urement (mass/volume)Ordered By: Juan M Arceo on 10-19-2024 Calcium [Mass/Vol] 9.5 mg/dL 7.6-11.0 [facility] Serum or plasma urea nitroge n measurement (mass/volume)Ordered By: Juan M Hircsh on 10-19-2024 Urea nitrogen [Mass/Vol] 42 mg/dL High 4-19 [facility] Sodium levelOrdered By: Juan Manuel Hirsch on 10-19-2024 Sodium [Moles/Vol] 141 mmol/L 133-145 [facility] Squamous epithelial cells de tection in urine sediment by light microscopyOrdered By: Juan M Hirsch on 10-19-2024 Epithelial cells.squamous LM Ql (Urine sed) 0 SEEN /hpf 0-5 [facility] Total proteinOrdered By: Andres Hirsch on 10-19-2024 Protein [Mass/Vol] 7.7 g/dL 5.9-8.4 [facility] Urinalysis, Completeon 10-19 RBC 0-5 SEEN Normal 0-5 [facility] Comment on above: Order Comment: CLEAN CATCH Performed By: #### L 400.0001 #### [facility] [address] [place], [address] WBC 0-5 SEEN Normal 0-5 [facility] Comment on above: Order Comment: CLEAN CATCH Performed By: #### L 400.0001 #### [facility] [address] [place], [address] BACTERIA 0 SEEN Normal None Seen [facility] Comment on above: Order Comment: CLEAN CATCH Performed By: #### L 400.0001 #### [facility] [address] [place], [address] EPI,SQUAMOUS 0 SEEN Normal 0-5 [facility] Comment on above: Order Comment: CLEAN CATCH Performed By: #### L 400.0001 #### [facility] [address] [place], [place], [id number] Mucus Ql (Urine sed) 0 SEEN Normal [facility] Comment on above: Order Comment: CLEAN CATCH Performed By: #### L 400.0001 #### [facility] [address] [place], [place], [phone] Urine clarityOrdered By: Andres Hirsch on 10-19-2024 Clarity (U) Clear Clear [facility] Urine color determinationOrd ered By: Juan M Hirsch on 10-19-2024 Color (U) Yellow Yellow [facility] Urine glucose detectionOrder ed By: Juan M Hirsch on 10-19-2024 Glucose Ql (U) 1000 mg/dl High Normal [facility] Urine leukocyte esterase det ection by dipstickOrdered By: Juan M Hirsch on 10-19-2024 Leukocyte esterase Test strip Ql (U) Negative Negative [facility] Urine pHOrdered By: Juan M Funez on 10-19-2024 pH (U) 6.0 [pH] 5.0 - 8.0 [facility] Urine sediment bacteria coun t by microscopy (number/high power field)Ordered By: Juan M Hirsch on 10-19-2024 Bacteria LM.HPF (Urine sed) [#/Area] 0 /[HPF] None Seen [facility] Urine specific gravity measu rementOrdered By: Juan M Hirsch on 10-19-2024 Specific gravity (U) [Rel density] 1.020 1.002-1.030 [facility] Urine urobilinogen measureme ntOrdered By: Juan M Hirsch on 10-19-2024 Urobilinogen Ql (U) Normal mg/dl Normal [facility] White blood cell (WBC) count Ordered By: Juan M Hirsch on 10-19-2024 WBC (Bld) [#/Vol] 12.5 10*3/uL High 4.4-11.0 [facility] White blood cell countOrdere d By: Juan M Hirsch on 10-19-2024 White blood cell count 0-5 SEEN /hpf 0-5 [facility] Bilirubin directOrdered By: Jack Fuller on 09-22-2024 Bilirubin.direct [Mass/Vol] 0.27 mg/dL 0.00-0.30 [facility] Bilirubin, totalOrdered By: Jack Fuller on 09-22-2024 Bilirubin [Mass/Vol] 0.57 mg/dL 0.00-1.30 [facility] Calculated very low density lipoprotein (VLDL) cholesterol measurementOrdered By: Jack Fuller on 09-22-2024 Calculated very low density lipoprotein (VLDL) cholesterol measurement 20 mg/dL 5-40 [facility] LDL calc ser/plasOrdered By: Jack Fuller on 09-22-2024 Cholesterol in LDL [Mass/Vol] 62 mg/dL [facility] Comment on above: Jqrhastdao=334-478 m g/dL & Higher Fowq=680 mg/dL or greater Laboratory - Chemistry and C hemistry - challengeOrdered By: Jack Fuller on 09-22-2024 AST [Catalytic activity/Vol] 25 U/L <38 [facility] Lipid Profileon 09-22-2024 CHOL:HDL 2.66 Normal [facility] Comment on above: Performed By: #### L 500.3400, L500.4100 ####[facility] [address] [place], [place], [id number] Cholesterol [Mass/Vol] 132 mg/dL Normal <=200 [facility] Comment on above: Result Comment: Chol esterol level, Desirable <200 mg/dL Borderline high cholesterol 200-239 mg/dL High cholesterol >=240 mg/dL Recommendations of the NCEP Adult Treatment Panel for the following risk-cutoff thresholds for the [place] population. Performed By: #### L 500.3400, L500.4100 ####[facility] [address] [place], [address] Cholesterol in HDL [Mass/Vol] 50 mg/dL Normal [facility] Comment on above: Result Comment: Allie onal Cholesterol Education Program (NCEP) guidelines: <40 mg/dL: Low HDL-cholesterol (major risk factor for CHD) >= 60 mg/dL: High HDL-cholesterol (negative risk factor for CHD) HDL-cholesterol is affected by a number of factors, e.g. smoking, exercise, hormones, sex and age. Performed By: #### L 500.3400, L500.4100 ####[facility] [address] [place], [address] Cholesterol in LDL [Mass/Vol] 62 mg/dL Normal [facility] Comment on above: Result Comment: Bord uniget=690-427 mg/dL Higher Asdc=868 mg/dL or greater Performed By: #### L 500.3400, L500.4100 ####[facility] [address] [place], [address] Cholesterol in VLDL [Mass/Vol] 20 mg/dL Normal 5-40 [facility] Comment on above: Performed By: #### L 500.3400, L500.4100 ####[facility] [address] [place], [address] Triglyceride [Mass/Vol] 101 mg/dL Normal [facility] Comment on above: Result Comment: The drugs N-Acetylcysteine and Metamizole may falsely depress this assay. Normal range: <150 mg/dL Borderline High: 150-199 mg/dL High: 200-499 mg/dL Very High: >500 mg/dL Performed By: #### L 500.3400, L500.4100 ####[facility] [address] [place], [address] Liver Profileon 09-22-2024 Albumin [Mass/Vol] 3.8 g/dL Normal 3.4-4.8 [facility] Comment on above: Performed By: #### L 500.3400, L500.4100 ####[facility] [address] [place], [address] ALK PHOS 86 U/L Normal 40-129 [facility] Comment on above: Performed By: #### L 500.3400, L500.4100 ####[facility] [address] [place], [address] ALT [Catalytic activity/Vol] 19 U/L Normal <=46 [facility] Comment on above: Performed By: #### L 500.3400, L500.4100 ####[facility] [address] [place], [address] AST [Catalytic activity/Vol] 25 U/L Normal <=37 [facility] Comment on above: Performed By: #### L 500.3400, L500.4100 ####[facility] [address] [place], [address] Bilirubin [Mass/Vol] 0.57 mg/dL Normal 0.00-1.30 [facility] Comment on above: Performed By: #### L 500.3400, L500.4100 ####[facility] [address] [place], [address] Bilirubin.direct [Mass/Vol] 0.27 mg/dL Normal 0.00-0.30 [facility] Comment on above: Performed By: #### L 500.3400, L500.4100 ####[facility] [address] [place], [address] Globulin (S) [Mass/Vol] 3.0 g/dL Normal 2.2-4.2 [facility] Comment on above: Performed By: #### L 500.3400, L500.4100 ####[facility] [address] [place], [place], [id number] T PROT 6.8 g/dL Normal 5.9-8.4 [facility] Comment on above: Performed By: #### L 500.3400, L500.4100 ####[facility] [address] [place], [place], [phone] Screening total cholesterol/ high density lipoprotein (HDL) cholesterol ratioOrdered By: Jack Fuller on 09-22-2024 Cholesterol.total/Choles terol in HDL [Mass ratio] 2.66 {ratio} [facility] Serum globulin measurementOr dered By: Jack Fuller on 09-22-2024 Globulin (S) [Mass/Vol] 3.0 g/dL 2.2-4.2 [facility] Serum or plasma alanine au otransferase (ALT) measurementOrdered By: Jack Fuller on 09-22-2024 ALT [Catalytic activity/Vol] 19 U/L <47 [facility] Serum or plasma albumin ender urement (mass/volume)Ordered By: Jack Fuller on 09-22-2024 Albumin [Mass/Vol] 3.8 g/dL 3.4-4.8 [facility] Serum or plasma alkaline ana sphatase measurementOrdered By: Jack Fuller on 09-22-2024 ALP [Catalytic activity/Vol] 86 U/L 40-129 [facility] Serum or plasma cholesterol in HDL measurement (mass/volume)Ordered By: Jack Fuller on 09-22-2024 Cholesterol in HDL [Mass/Vol] 50 mg/dL >40 [facility] Comment on above: National Cholesterol Education Program (NCEP) guidelines:<40 mg/dL: Low HDL-cholesterol (major risk factor for CHD)>= 60 mg/dL: High HDL-cholesterol (negative risk factor for CHD)HDL-cholesterol is affected by a number of factors, e.g. smoking, exercise, hormones, sex and age. Serum or plasma cholesterol measurement (mass/volume)Ordered By: Jack Fuller on 09-22-2024 Cholesterol [Mass/Vol] 132 mg/dL <201 [facility] Comment on above: Cholesterol level, D esirable <200 mg/dLBorderline high cholesterol 200-239 mg/dLHigh cholesterol >=240 mg/dLRecommendations of the NCEP Adult Treatment Panel for the following risk-cutoff thresholds for the [place] population. Total proteinOrdered By: Azael parveen Jonny on 09-22-2024 Protein [Mass/Vol] 6.8 g/dL 5.9-8.4 [facility] Triglycerides measurementOrd ered By: Jack Fuller on 09-22-2024 Triglyceride [Mass/Vol] 101 mg/dL <199 [facility] Comment on above: The drugs N-Acetylcy steine and Metamizole may falsely depress this assay. Normal range: <150 mg/dLBorderline High: 150-199 mg/dLHigh: 200-499 mg/dLVery High: >500 mg/dL Cardiology Visit Reporton Cardiology Visit Report [facility] [address] [place] [address] OFFICE VISIT Date of Service: 09/18/24 MR#: [id number] Acct: [id number] Name: FREDY BOX Rep #: [id number] : 1945 Provider: Dr. Jack ayala MD Age/Sex: 79/M Location: [facility] Status: Signed HPI HPI History of Present Illness Details: Patient is a pleasant 79-year-old white male that comes in for monitoring of his cardiovascular status. The patient carries a history of coronary disease status post stenting the last of which was in 2010 in [facility]. 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 Normal [facility] .GFRon 08-26-2024 Estimated Glomerular Filtration Rate 51 ml/min/1.73sqm Normal [facility] Comment on above: Result Comment: Stages of [...] eGFR results. Performed By: #### C MP, LIPID, GFR ####[address] [place], [place] [address] CMPon 08-26-2024 Albumin Level 2.9 G/dL Low 3.4-4.8 [facility] Comment on above: Performed By: #### C MP, LIPID, GFR ####[address] [place], [place] [address] Albumin/Globulin [Mass ratio] 0.7 {ratio} Low 1.1-2.5 [facility] Comment on above: Performed By: #### C MP, LIPID, GFR ####[address] [place], [place] [address] ALP [Catalytic activity/Vol] 84 U/L Normal 40-135 [facility] Comment on above: Performed By: #### C MP, LIPID, GFR ####[address] [place], [place] [address] ALT [Catalytic activity/Vol] 24 U/L Normal 16-63 [facility] Comment on above: Performed By: #### C MP, LIPID, GFR ####[address] [place], [place] [address] AST [Catalytic activity/Vol] 22 U/L Normal 10-40 [facility] Comment on above: Performed By: #### C MP, LIPID, GFR ####[address] [place], [place] [address] Bili Total 0.5 mg/dL Normal 0.2-1.0 [facility] Comment on above: Result Comment: Use of this assay is not recommended for patients undergoing treatment with eltrombopag due to the potential for falsely elevated results. Performed By: #### C MP, LIPID, GFR ####[address] [place], [place] [address] BUN/Creatinine Ratio 24 ratio Normal 7-27 [facility] Comment on above: Performed By: #### C MP, LIPID, GFR ####[address] [place], [place] [address] Calcium [Mass/Vol] 8.8 mg/dL Normal 8.4-10.2 [facility] Comment on above: Performed By: #### C MP, LIPID, GFR ####[address] [place], [place] [address] Chloride [Moles/Vol] 109 mmol/L High 98-107 [facility] Comment on above: Performed By: #### C MP, LIPID, GFR ####[address] [address] CO2 [Moles/Vol] 27 mmol/L Normal 23-31 [facility] Comment on above: Performed By: #### C MP, LIPID, GFR ####[address] [address] Creatinine [Mass/Vol] 1.40 mg/dL High 0.67-1.17 [facility] Comment on above: Performed By: #### C MP, LIPID, GFR ####[address] [address] Electrolyte Balance 8.0 mEq/L Normal 4.0-15.0 [facility] Comment on above: Performed By: #### C MP, LIPID, GFR ####[address] [place], [place] [address] Globulin 3.9 G/dL Normal 2.7-4.4 [facility] Comment on above: Performed By: #### C MP, LIPID, GFR ####[address] [place], [place] [address] Glucose [Mass/Vol] 88 mg/dL Normal 83-110 [facility] Comment on above: Performed By: #### C MP, LIPID, GFR ####[address] [address] Potassium [Moles/Vol] 4.2 mmol/L Normal 3.5-5.1 [facility] Comment on above: Performed By: #### C MP, LIPID, GFR ####[address] [place], [place] [address] Sodium [Moles/Vol] 144 mmol/L Normal 136-145 [facility] Comment on above: Performed By: #### C MP, LIPID, GFR ####[address] [place], [place] [address] Total Protein 6.8 G/dL Normal 6.4-8.2 [facility] Comment on above: Performed By: #### C MP, LIPID, GFR ####[address] [place], [place] [address] Urea nitrogen [Mass/Vol] 34 mg/dL High 7-18 [facility] Comment on above: Performed By: #### C MP, LIPID, GFR ####[address] [place], [place] [address] LABORATORYOrdered By: SYSTEM SYSTEM on 08-26-2024 Albumin [...] 08-26-2024 Cholesterol [Mass/Vol] 133 mg/dL Normal 0-200 [facility] Comment on above: Result Comment: Chol esterol Reference Interval: Less than 200 Desirable 200-239 Borderline high risk 240 and above High risk Performed By: #### C MP, LIPID, GFR ####[place] [address] [place], [place] [address] Cholesterol in HDL [Mass/Vol] 55 mg/dL Normal 40-60 [facility] Comment on above: Performed By: #### C MP, LIPID, GFR ####[address] [address] Cholesterol in LDL [Mass/Vol] 63 mg/dL Normal 0-130 [facility] Comment on above: Performed By: #### C MP, LIPID, GFR ####[address] [address] Triglyceride [Mass/Vol] 74 mg/dL Normal 0-150 [facility] Comment on above: Result Comment: Trig lyceride Reference Interval: Less than 150 Normal 150-199 Borderline high risk 200-499 High risk 500 or higher Very high risk Performed By: #### C MP, LIPID, GFR ####[address] [address] .Auto Diffon 08-18-2024 Basophil, Absolute 0.0 10 3/mcL Normal 0.0-0.3 [facility] Comment on above: Performed By: #### U ANTHONY, CMP, CBC, ADIFF, ANEU, GFR, LIPID #### [address] [address] Basophils/100 WBC (Bld) 0.2 % Normal 0.0-2.5 [facility] Comment on above: Performed By: #### U ANTHONY, CMP, CBC, ADIFF, ANEU, GFR, LIPID #### [address] [address] Eosinophil, Absolute 0.1 10 3/mcL Normal 0.0-0.7 [facility] Comment on above: Performed By: #### U ANTHONY, CMP, CBC, ADIFF, ANEU, GFR, LIPID #### [address] [address] Eosinophils/100 WBC (Bld) 0.9 % Normal 0.0-6.0 [facility] Comment on above: Performed By: #### U ANTHONY, CMP, CBC, ADIFF, ANEU, GFR, LIPID #### [address] [address] Lymphocyte, Absolute 0.9 10 3/mcL Normal 0.9-4.3 [facility] Comment on above: Performed By: #### U ANTHONY, CMP, CBC, ADIFF, ANEU, GFR, LIPID #### [address] [address] Lymphocytes/100 WBC (Bld) 8.1 % Low 20.0-40.0 [facility] Comment on above: Performed By: #### U ANTHONY, CMP, CBC, ADIFF, ANEU, GFR, LIPID #### [address] [address] Monocyte, Absolute 1.0 10 3/mcL Normal 0.1-1.4 [facility] Comment on above: Performed By: #### U ANTHONY, CMP, CBC, ADIFF, ANEU, GFR, LIPID #### [address] [address] Monocytes/100 WBC (Bld) 8.9 % Normal 2.0-13.0 [facility] Comment on above: Performed By: #### U ANTHONY, CMP, CBC, ADIFF, ANEU, GFR, LIPID #### [address] [address] Neutrophils/100 WBC (Bld) 81.9 % High 50.0-75.0 [facility] Comment on above: Performed By: #### U ANTHONY, CMP, CBC, ADIFF, ANEU, GFR, LIPID #### [address] [address] .GFRon 08-18-2024 Estimated Glomerular Filtration Rate 54 ml/min/1.73sqm Normal [facility] Comment on above: Result Comment: Stages of [...] calculate the eGFR results. Performed By: #### U ANTHONY, CMP, CBC, ADIFF, ANEU, GFR, LIPID #### [address] [address] .NEUABSon 08-18-2024 Neutrophil, Absolute 9.6 10 3/mcL High 2.3-8.1 [facility] Comment on above: Performed By: #### U ANTHONY, CMP, CBC, ADIFF, ANEU, GFR, LIPID #### [address] [address] CBCon 08-18-2024 Erythrocyte distribution width (RBC) [Ratio] 17.4 % High 11.5-15.5 [facility] Comment on above: Performed By: #### U ANTHONY, CMP, CBC, ADIFF, ANEU, GFR, LIPID #### [address] [address] Hematocrit (Bld) [Volume fraction] 43.6 % Normal 40.0-52.0 [facility] Comment on above: Performed By: #### U ANTHONY, CMP, CBC, ADIFF, ANEU, GFR, LIPID #### [address] [address] Hgb 14.6 G/dL Normal 13.0-17.5 [facility] Comment on above: Performed By: #### U ANTHONY, CMP, CBC, ADIFF, ANEU, GFR, LIPID #### [address] [address] MCH (RBC) [Entitic mass] 34.3 pg High 27.0-33.0 [facility] Comment on above: Performed By: #### U ANTHONY, CMP, CBC, ADIFF, ANEU, GFR, LIPID #### [place] [address] MCHC 33.4 G/dL Normal 32.0-36.0 [facility] Comment on above: Performed By: #### U ANTHONY, CMP, CBC, ADIFF, ANEU, GFR, LIPID #### [place] [address] MCV (RBC) [Entitic vol] 102.8 fL High 81.0-100.0 [facility] Comment on above: Performed By: #### U ANTHONY, CMP, CBC, ADIFF, ANEU, GFR, LIPID #### [place] [address] Platelet 132 10 3/mcL Low 150-450 [facility] Comment on above: Performed By: #### U ANTHONY, CMP, CBC, ADIFF, ANEU, GFR, LIPID #### [place] [address] Platelet mean volume (Bld) [Entitic vol] 7.6 fL Normal 6.4-10.5 [facility] Comment on above: Performed By: #### U ANTHONY, CMP, CBC, ADIFF, ANEU, GFR, LIPID #### [place] [address] RBC 4.24 10 6/mcL Low 4.50-6.00 [facility] Comment on above: Performed By: #### U ANTHONY, CMP, CBC, ADIFF, ANEU, GFR, LIPID #### [place] [address] WBC 11.7 10 3/mcL High 4.5-10.8 [facility] Comment on above: Performed By: #### U ANTHONY, CMP, CBC, ADIFF, ANEU, GFR, LIPID #### [address] [address] CMPon 08-18-2024 Albumin Level 2.9 G/dL Low 3.4-4.8 [facility] Comment on above: Performed By: #### U ANTHONY, CMP, CBC, ADIFF, ANEU, GFR, LIPID #### [address] [address] Albumin/Globulin [Mass ratio] 0.8 {ratio} Low 1.1-2.5 [facility] Comment on above: Performed By: #### U ANTHONY, CMP, CBC, ADIFF, ANEU, GFR, LIPID #### [address] [address] ALP [Catalytic activity/Vol] 81 U/L Normal 40-135 [facility] Comment on above: Performed By: #### U ANTHONY, CMP, CBC, ADIFF, ANEU, GFR, LIPID #### [address] [address] ALT [Catalytic activity/Vol] 33 U/L Normal 16-63 [facility] Comment on above: Performed By: #### U ANTHONY, CMP, CBC, ADIFF, ANEU, GFR, LIPID #### [address] [address] AST [Catalytic activity/Vol] 33 U/L Normal 10-40 [facility] Comment on above: Performed By: #### U ANTHONY, CMP, CBC, ADIFF, ANEU, GFR, LIPID #### [address] [address] Bili Total 0.7 mg/dL Normal 0.2-1.0 [facility] Comment on above: Result Comment: Use of this assay is not recommended for patients undergoing treatment with eltrombopag due to the potential for falsely elevated results. Performed By: #### U ANTHONY, CMP, CBC, ADIFF, ANEU, GFR, LIPID #### [address] [address] BUN/Creatinine Ratio 23 ratio Normal 7-27 [facility] Comment on above: Performed By: #### U ANTHONY, CMP, CBC, ADIFF, ANEU, GFR, LIPID #### [address] [address] Calcium [Mass/Vol] 8.7 mg/dL Normal 8.4-10.2 [facility] Comment on above: Performed By: #### U ANTHONY, CMP, CBC, ADIFF, ANEU, GFR, LIPID #### [place] [address] Chloride [Moles/Vol] 108 mmol/L High 98-107 [facility] Comment on above: Performed By: #### U ANTHONY, CMP, CBC, ADIFF, ANEU, GFR, LIPID #### [place] [address] CO2 [Moles/Vol] 25 mmol/L Normal 23-31 [facility] Comment on above: Performed By: #### U ANTHONY, CMP, CBC, ADIFF, ANEU, GFR, LIPID #### [address] [address] Creatinine [Mass/Vol] 1.33 mg/dL High 0.67-1.17 [facility] Comment on above: Performed By: #### U ANTHONY, CMP, CBC, ADIFF, ANEU, GFR, LIPID #### [address] [address] Electrolyte Balance 8.0 mEq/L Normal 4.0-15.0 [facility] Comment on above: Performed By: #### U ANTHONY, CMP, CBC, ADIFF, ANEU, GFR, LIPID #### [address] [address] Globulin 3.8 G/dL Normal 2.7-4.4 [facility] Comment on above: Performed By: #### U ANTHONY, CMP, CBC, ADIFF, ANEU, GFR, LIPID #### [address] [address] Glucose [Mass/Vol] 80 mg/dL Low 83-110 [facility] Comment on above: Performed By: #### U ANTHONY, CMP, CBC, ADIFF, ANEU, GFR, LIPID #### [address] [address] Potassium [Moles/Vol] 4.0 mmol/L Normal 3.5-5.1 [facility] Comment on above: Performed By: #### U ANTHONY, CMP, CBC, ADIFF, ANEU, GFR, LIPID #### [place] [id number] [place], [place] [address] Sodium [Moles/Vol] 141 mmol/L Normal 136-145 [facility] Comment on above: Performed By: #### U ANTHONY, CMP, CBC, ADIFF, ANEU, GFR, LIPID #### [address] [address] Total Protein 6.7 G/dL Normal 6.4-8.2 [facility] Comment on above: Performed By: #### U ANTHONY, CMP, CBC, ADIFF, ANEU, GFR, LIPID #### [address] [address] Urea nitrogen [Mass/Vol] 31 mg/dL High 7-18 [facility] Comment on above: Performed By: #### U ANTHONY, CMP, CBC, ADIFF, ANEU, GFR, LIPID #### [address] [address] LABORATORYOrdered By: SYSTEM SYSTEM on 08-18-2024 Albumin [...] Culture Urine No growth at 48 hours. [facility] PBNPon 08-18-2024 Natriuretic peptide B (Bld) [Mass/Vol] 605 pg/mL High 0-450 [facility] Comment on above: Result Comment: NT-p roBNP results of less than 300 pg/mL effectively rules out acute congestive heart failure with 99% negative predictive value. Performed By: #### U ANTHONY, CMP, CBC, ADIFF, ANEU, GFR, LIPID #### [facility] [address] [place], [place] [address] XR CHEST 2 VIEWSon XR CHEST 2 [...] 08/08/2024 8:18:18 AM Ordering Provider: ANGELA Rodrigez [facility] .Auto Diffon 04-14-2024 Basophil, Absolute 0.0 10 3/mcL Normal 0.0-0.2 [facility] Comment on above: Performed By: #### U ANTHONY, CMP, CBC, ADIFF, ANEU, GFR, LIPID #### [facility] [address] [place], [place] [address] Basophils/100 WBC (Bld) 0.4 % Normal 0.0-2.5 [facility] Comment on above: Performed By: #### U ANTHONY, CMP, CBC, ADIFF, ANEU, GFR, LIPID #### [address] [address] Eosinophil, Absolute 0.2 10 3/mcL Normal 0.0-0.7 [facility] Comment on above: Performed By: #### U ANTHONY, CMP, CBC, ADIFF, ANEU, GFR, LIPID #### [address] [address] Eosinophils/100 WBC (Bld) 2.1 % Normal 0.0-7.0 [facility] Comment on above: Performed By: #### U ANTHONY, CMP, CBC, ADIFF, ANEU, GFR, LIPID #### [address] [address] Lymphocyte, Absolute 0.9 10 3/mcL Normal 0.9-4.3 [facility] Comment on above: Performed By: #### U ANTHONY, CMP, CBC, ADIFF, ANEU, GFR, LIPID #### [address] [address] Lymphocytes/100 WBC (Bld) 12.2 % Low 20.0-40.0 [facility] Comment on above: Performed By: #### U ANTHONY, CMP, CBC, ADIFF, ANEU, GFR, LIPID #### [address] [address] Monocyte, Absolute 0.6 10 3/mcL Normal 0.1-1.4 [facility] Comment on above: Performed By: #### U ANTHONY, CMP, CBC, ADIFF, ANEU, GFR, LIPID #### [address] [address] Monocytes/100 WBC (Bld) 8.4 % Normal 2.0-13.0 [facility] Comment on above: Performed By: #### U ANTHONY, CMP, CBC, ADIFF, ANEU, GFR, LIPID #### [address] [address] Neutrophils/100 WBC (Bld) 76.9 % High 50.0-75.0 [facility] Comment on above: Performed By: #### U ANTHONY, CMP, CBC, ADIFF, ANEU, GFR, LIPID #### [address] [address] .GFRon 04-14-2024 GFR 63 ml/min/1.73sqm Normal [facility] Comment on above: Result Comment: GFR Population [...] 15 mL/min/1.73 square meters Performed By: #### U ANTHONY, CMP, CBC, ADIFF, ANEU, GFR, LIPID #### [address] [address] GFR Non- 52 ml/min/1.73sqm [facility] [place] Comment on above: Result Comment: GFR Population [...] 15 mL/min/1.73 square meters Performed By: #### U ANTHONY, CMP, CBC, ADIFF, ANEU, GFR, LIPID #### [address] [address] .NEUABSon 04-14-2024 Neutrophil, Absolute 5.5 10 3/mcL Normal 2.3-8.1 [facility] Comment on above: Performed By: #### U ANTHONY, CMP, CBC, ADIFF, ANEU, GFR, LIPID #### [address] [address] CBCon 04-14-2024 Erythrocyte distribution width (RBC) [Ratio] 15.8 % High 11.5-15.5 [facility] Comment on above: Performed By: #### U ANTHONY, CMP, CBC, ADIFF, ANEU, GFR, LIPID #### [place] [address] Hematocrit (Bld) [Volume fraction] 42.9 % Normal 40.0-52.0 [facility] Comment on above: Performed By: #### U ANTHONY, CMP, CBC, ADIFF, ANEU, GFR, LIPID #### [place] [address] Hgb 14.5 G/dL Normal 13.0-17.5 [facility] Comment on above: Performed By: #### U ANTHONY, CMP, CBC, ADIFF, ANEU, GFR, LIPID #### [place] [address] MCH (RBC) [Entitic mass] 34.2 pg High 27.0-33.0 [facility] Comment on above: Performed By: #### U ANTHONY, CMP, CBC, ADIFF, ANEU, GFR, LIPID #### [place] [address] MCHC 33.8 G/dL Normal 32.0-36.0 [facility] Comment on above: Performed By: #### U ANTHONY, CMP, CBC, ADIFF, ANEU, GFR, LIPID #### [place] [address] MCV (RBC) [Entitic vol] 100.9 fL High 81.0-100.0 [facility] Comment on above: Performed By: #### U ANTHONY, CMP, CBC, ADIFF, ANEU, GFR, LIPID #### [address] [address] Platelet 205 10 3/mcL Normal 150-450 [facility] Comment on above: Performed By: #### U ANTHONY, CMP, CBC, ADIFF, ANEU, GFR, LIPID #### [address] [address] Platelet mean volume (Bld) [Entitic vol] 6.8 fL Normal 6.4-10.5 [facility] Comment on above: Performed By: #### U ANTHONY, CMP, CBC, ADIFF, ANEU, GFR, LIPID #### [address] [address] RBC 4.25 10 6/mcL Low 4.50-6.00 [facility] Comment on above: Performed By: #### U ANTHONY, CMP, CBC, ADIFF, ANEU, GFR, LIPID #### [address] [address] WBC 7.2 10 3/mcL Normal 4.5-10.8 [facility] Comment on above: Performed By: #### U ANTHONY, CMP, CBC, ADIFF, ANEU, GFR, LIPID #### [address] [address] CMPon 04-14-2024 Albumin Level 3.2 G/dL Low 3.4-4.8 [facility] Comment on above: Performed By: #### U ANTHONY, CMP, CBC, ADIFF, ANEU, GFR, LIPID #### [address] [address] Albumin/Globulin [Mass ratio] 0.7 {ratio} Low 1.1-2.5 [facility] Comment on above: Performed By: #### U ANTHONY, CMP, CBC, ADIFF, ANEU, GFR, LIPID #### [address] [address] ALP [Catalytic activity/Vol] 98 U/L Normal 40-135 [facility] Comment on above: Performed By: #### U ANTHONY, CMP, CBC, ADIFF, ANEU, GFR, LIPID #### [address] [address] ALT [Catalytic activity/Vol] 17 U/L Normal 16-63 [facility] Comment on above: Performed By: #### U ANTHONY, CMP, CBC, ADIFF, ANEU, GFR, LIPID #### [address] [address] AST [Catalytic activity/Vol] 19 U/L Normal 10-40 [facility] Comment on above: Performed By: #### U ANTHONY, CMP, CBC, ADIFF, ANEU, GFR, LIPID #### [address] [address] Bili Total 0.6 mg/dL Normal 0.2-1.0 [facility] Comment on above: Result Comment: Use of this assay is not recommended for patients undergoing treatment with eltrombopag due to the potential for falsely elevated results. Performed By: #### U ANTHONY, CMP, CBC, ADIFF, ANEU, GFR, LIPID #### [address] [address] BUN/Creatinine Ratio 23 ratio Normal 7-27 [facility] Comment on above: Performed By: #### U ANTHONY, CMP, CBC, ADIFF, ANEU, GFR, LIPID #### [address] [address] Calcium [Mass/Vol] 9.3 mg/dL Normal 8.4-10.2 [facility] Comment on above: Performed By: #### U ANTHONY, CMP, CBC, ADIFF, ANEU, GFR, LIPID #### [address] [address] Chloride [Moles/Vol] 106 mmol/L Normal 98-107 [facility] Comment on above: Performed By: #### U ANTHONY, CMP, CBC, ADIFF, ANEU, GFR, LIPID #### [address] [address] CO2 [Moles/Vol] 27 mmol/L Normal 23-31 [facility] Comment on above: Performed By: #### U ANTHONY, CMP, CBC, ADIFF, ANEU, GFR, LIPID #### [address] [address] Creatinine [Mass/Vol] 1.32 mg/dL High 0.70-1.30 [facility] Comment on above: Result Comment: Test ing performed on Siemens Dimension EXL analyzer using a modified kinetic Pati technique. Performed By: #### U ANTHONY, CMP, CBC, ADIFF, ANEU, GFR, LIPID #### [address] [address] Electrolyte Balance 7.0 mEq/L Normal 4.0-15.0 [facility] Comment on above: Performed By: #### U ANTHONY, CMP, CBC, ADIFF, ANEU, GFR, LIPID #### [address] [address] Globulin 4.3 G/dL Normal [facility] Comment on above: Performed By: #### U ANTHONY, CMP, CBC, ADIFF, ANEU, GFR, LIPID #### [address] [address] Glucose [Mass/Vol] 85 mg/dL Normal 83-110 [facility] Comment on above: Performed By: #### U ANTHONY, CMP, CBC, ADIFF, ANEU, GFR, LIPID #### [address] [address] Potassium [Moles/Vol] 3.8 mmol/L Normal 3.5-5.1 [facility] Comment on above: Performed By: #### U ANTHONY, CMP, CBC, ADIFF, ANEU, GFR, LIPID #### [address] [address] Sodium [Moles/Vol] 140 mmol/L Normal 136-145 [facility] Comment on above: Performed By: #### U ANTHONY, CMP, CBC, ADIFF, ANEU, GFR, LIPID #### [address] [address] Total Protein 7.5 G/dL Normal 6.4-8.2 [facility] Comment on above: Performed By: #### U ANTHONY, CMP, CBC, ADIFF, ANEU, GFR, LIPID #### [facility] [address] [place], [place] [address] Urea nitrogen [Mass/Vol] 31 mg/dL High 7-18 [facility] Comment on above: Performed By: #### U ANTHONY, CMP, CBC, ADIFF, ANEU, GFR, LIPID #### [facility] [address] [place], [place] [address] LABORATORYOrdered By: SYSTEM SYSTEM on 04-14-2024 Albumin [...] 04-14-2024 Cholesterol [Mass/Vol] 127 mg/dL Normal 0-200 [facility] Comment on above: Result Comment: Chol esterol Reference Interval: Less than 200 Desirable 200-239 Borderline high risk 240 and above High risk Performed By: #### U ANTHONY, CMP, CBC, ADIFF, ANEU, GFR, LIPID #### [address] [address] Cholesterol in HDL [Mass/Vol] 59 mg/dL Normal 40-60 [facility] Comment on above: Performed By: #### U ANTHONY, CMP, CBC, ADIFF, ANEU, GFR, LIPID #### [place] [id number] [place], [place] [address] Cholesterol in LDL [Mass/Vol] 54 mg/dL Normal 0-130 [facility] Comment on above: Performed By: #### U ANTHONY, CMP, CBC, ADIFF, ANEU, GFR, LIPID #### [place] [id number] [place], [place] [address] Triglyceride [Mass/Vol] 69 mg/dL Normal 0-150 [facility] Comment on above: Result Comment: Trig lyceride Reference Interval: Less than 150 Normal 150-199 Borderline high risk 200-499 High risk 500 or higher Very high risk Performed By: #### U ANTHONY, CMP, CBC, ADIFF, ANEU, GFR, LIPID #### [facility] [address] [place], [place] [address] URICon 04-14-2024 Uric Acid Lvl 3.7 mg/dL Normal 3.5-7.2 [facility] Comment on above: Performed By: #### U ANTHONY, CMP, CBC, ADIFF, ANEU, GFR, LIPID #### [facility] [address] [place], [place] [address] Cardiology Visit Reporton Cardiology Visit Report [facility] [address] [place] [address] [address] [place] [address] OFFICE VISIT Date of Service: 12/12/23 MR#: [id number] Acct: [id number] Name: FREDY BOX Rep #: [id number] : 1945 Provider: OLIVIA Chairez Age/Sex: 78/M Location: [facility] Status: Signed HPI HPI History of Present Illness Details: This is a 78-year-old male who presents the office today for an urgent follow-up. He was evaluated [facility] in March 2023 for non-ST elevated [...] bleeding End (more content not included)... Normal [facility] .Auto Diffon 11-29-2023 Basophil, Absolute 0.0 10 3/mcL Normal 0.0-0.2 [facility] Comment on above: Performed By: #### C MP, ANEU, GFR, URIC, CBC, ADIFF, LIPID ####[place] [address] [place], [place] [address] Basophils/100 WBC (Bld) 0.4 % Normal 0.0-2.5 [facility] Comment on above: Performed By: #### C MP, ANEU, GFR, URIC, CBC, ADIFF, LIPID ####[place] [id number] [place], [place] [address] Eosinophil, Absolute 0.2 10 3/mcL Normal 0.0-0.4 [facility] Comment on above: Performed By: #### C MP, ANEU, GFR, URIC, CBC, ADIFF, LIPID ####[address] [address] Eosinophils/100 WBC (Bld) 2.7 % Normal 0.0-7.0 [facility] Comment on above: Performed By: #### C MP, ANEU, GFR, URIC, CBC, ADIFF, LIPID ####[id number] [address] Lymphocyte, Absolute 0.9 10 3/mcL Normal 0.8-3.9 [facility] Comment on above: Performed By: #### C MP, ANEU, GFR, URIC, CBC, ADIFF, LIPID ####[id number] [place], [place] [address] Lymphocytes/100 WBC (Bld) 13.7 % Normal 10.0-50.0 [facility] Comment on above: Performed By: #### C MP, ANEU, GFR, URIC, CBC, ADIFF, LIPID ####[address] [address] Monocyte, Absolute 0.8 10 3/mcL Normal 0.2-1.0 [facility] Comment on above: Performed By: #### C MP, ANEU, GFR, URIC, CBC, ADIFF, LIPID ####[address] [address] Monocytes/100 WBC (Bld) 12.3 % Normal 1.7-13.0 [facility] Comment on above: Performed By: #### C MP, ANEU, GFR, URIC, CBC, ADIFF, LIPID ####[address] [address] Neutrophils/100 WBC (Bld) 70.9 % Normal 37.0-80.0 [facility] Comment on above: Performed By: #### C MP, ANEU, GFR, URIC, CBC, ADIFF, LIPID ####[address] [address] .GFRon 11-29-2023 GFR 58 ml/min/1.73sqm Normal [facility] Comment on above: Result Comment: GFR Population [...] 15 mL/min/1.73 square meters Performed By: #### U ANTHONY, CMP, CBC, ADIFF, ANEU, GFR, LIPID #### [address] [address] GFR Non- 47 ml/min/1.73sqm Normal [facility] Comment on above: Result Comment: GFR Population [...] 15 mL/min/1.73 square meters Performed By: #### U ANTHONY, CMP, CBC, ADIFF, ANEU, GFR, LIPID #### [address] [address] .NEUABSon 11-29-2023 Neutrophil, Absolute 4.8 10 3/mcL Normal 2.9-6.2 [facility] Comment on above: Performed By: #### U ANTHONY, CMP, CBC, ADIFF, ANEU, GFR, LIPID #### [facility] [address] [place], [place] [address] CBCon 11-29-2023 Erythrocyte distribution width (RBC) [Ratio] 15.7 % High 11.5-14.5 [facility] Comment on above: Performed By: #### C MP, ANEU, GFR, URIC, CBC, ADIFF, LIPID ####[place] [place], [place] [address] Hematocrit (Bld) [Volume fraction] 40.6 % Low 42.0-52.0 [facility] Comment on above: Performed By: #### C MP, ANEU, GFR, URIC, CBC, ADIFF, LIPID ####[place] [address] [place], [place] [address] Hgb 13.4 G/dL Low 14.0-18.0 [facility] Comment on above: Performed By: #### C MP, ANEU, GFR, URIC, CBC, ADIFF, LIPID ####[address] [address] MCH (RBC) [Entitic mass] 33.4 pg High 27.0-31.2 [facility] Comment on above: Performed By: #### C MP, ANEU, GFR, URIC, CBC, ADIFF, LIPID ####[place] [address] [place], [place] [address] MCHC 33.1 G/dL Normal 31.8-35.4 [facility] Comment on above: Performed By: #### C MP, ANEU, GFR, URIC, CBC, ADIFF, LIPID ####[address] [address] MCV (RBC) [Entitic vol] 101.0 fL High 80.0-94.0 [facility] Comment on above: Performed By: #### C MP, ANEU, GFR, URIC, CBC, ADIFF, LIPID ####[address] [address] Platelet 161 10 3/mcL Normal 130-400 [facility] Comment on above: Performed By: #### C MP, ANEU, GFR, URIC, CBC, ADIFF, LIPID ####[address] [address] Platelet mean volume (Bld) [Entitic vol] 6.9 fL Low 7.4-10.4 [facility] Comment on above: Performed By: #### C MP, ANEU, GFR, URIC, CBC, ADIFF, LIPID ####[place] [address] [place], [place] [address] RBC 4.02 10 6/mcL Low 4.04-6.13 [facility] Comment on above: Performed By: #### C MP, ANEU, GFR, URIC, CBC, ADIFF, LIPID ####[address] [address] WBC 6.7 10 3/mcL Normal 4.6-10.8 [facility] Comment on above: Performed By: #### C MP, ANEU, GFR, URIC, CBC, ADIFF, LIPID ####[address] [address] CMPon 11-29-2023 Albumin Level 3.2 G/dL Low 3.4-4.8 [facility] Comment on above: Performed By: #### U ANTHONY, CMP, CBC, ADIFF, ANEU, GFR, LIPID #### [address] [address] Albumin/Globulin [Mass ratio] 0.9 {ratio} Low 1.1-2.5 [facility] Comment on above: Performed By: #### U ANTHONY, CMP, CBC, ADIFF, ANEU, GFR, LIPID #### [address] [address] ALP [Catalytic activity/Vol] 105 U/L Normal 40-135 [facility] Comment on above: Performed By: #### U ANTHONY, CMP, CBC, ADIFF, ANEU, GFR, LIPID #### [place] [id number] [place], [place] [address] ALT [Catalytic activity/Vol] 16 U/L Normal 16-63 [facility] Comment on above: Performed By: #### U ANTHONY, CMP, CBC, ADIFF, ANEU, GFR, LIPID #### [address] [address] AST [Catalytic activity/Vol] 14 U/L Normal 10-40 [facility] Comment on above: Performed By: #### U ANTHONY, CMP, CBC, ADIFF, ANEU, GFR, LIPID #### [address] [address] Bili Total 0.6 mg/dL Normal 0.2-1.0 [facility] Comment on above: Result Comment: Use of this assay is not recommended for patients undergoing treatment with eltrombopag due to the potential for falsely elevated results. Performed By: #### U ANTHONY, CMP, CBC, ADIFF, ANEU, GFR, LIPID #### [address] [address] BUN/Creatinine Ratio 19 ratio Normal 7-27 [facility] Comment on above: Performed By: #### U ANTHONY, CMP, CBC, ADIFF, ANEU, GFR, LIPID #### [address] [address] Calcium [Mass/Vol] 9.0 mg/dL Normal 8.4-10.2 [facility] Comment on above: Performed By: #### U ANTHONY, CMP, CBC, ADIFF, ANEU, GFR, LIPID #### [address] [address] Chloride [Moles/Vol] 106 mmol/L Normal 98-107 [facility] Comment on above: Performed By: #### U ANTHONY, CMP, CBC, ADIFF, ANEU, GFR, LIPID #### [address] [address] CO2 [Moles/Vol] 30 mmol/L Normal 23-31 [facility] Comment on above: Performed By: #### U ANTHONY, CMP, CBC, ADIFF, ANEU, GFR, LIPID #### [address] [address] Creatinine [Mass/Vol] 1.44 mg/dL High 0.70-1.30 [facility] Comment on above: Result Comment: Test ing performed on Siemens Dimension EXL analyzer using a modified kinetic Pati technique. Performed By: #### U ANTHONY, CMP, CBC, ADIFF, ANEU, GFR, LIPID #### [address] [address] Electrolyte Balance 5.0 mEq/L Normal 4.0-15.0 [facility] Comment on above: Performed By: #### U ANTHONY, CMP, CBC, ADIFF, ANEU, GFR, LIPID #### [address] [address] Globulin 3.5 G/dL Normal [facility] Comment on above: Performed By: #### U ANTHONY, CMP, CBC, ADIFF, ANEU, GFR, LIPID #### [address] [address] Glucose [Mass/Vol] 88 mg/dL Normal 83-110 [facility] Comment on above: Performed By: #### U ANTHONY, CMP, CBC, ADIFF, ANEU, GFR, LIPID #### [address] [address] Potassium [Moles/Vol] 4.2 mmol/L Normal 3.5-5.1 [facility] Comment on above: Performed By: #### U ANTHONY, CMP, CBC, ADIFF, ANEU, GFR, LIPID #### [address] [address] Sodium [Moles/Vol] 141 mmol/L Normal 136-145 [facility] Comment on above: Performed By: #### U ANTHONY, CMP, CBC, ADIFF, ANEU, GFR, LIPID #### [address] [address] Total Protein 6.7 G/dL Normal 6.4-8.2 [facility] Comment on above: Performed By: #### U ANTHONY, CMP, CBC, ADIFF, ANEU, GFR, LIPID #### [address] [address] Urea nitrogen [Mass/Vol] 27 mg/dL High 7-18 [facility] Comment on above: Performed By: #### U ANTHONY, CMP, CBC, ADIFF, ANEU, GFR, LIPID #### [place] [id number] [place] [address] LABORATORYOrdered By: SYSTEM SYSTEM on 11-29-2023 Natriuretic [...] 11-29-2023 Cholesterol [Mass/Vol] 122 mg/dL Normal 0-200 [facility] Comment on above: Result Comment: Chol esterol Reference Interval: Less than 200 Desirable 200-239 Borderline high risk 240 and above High risk Performed By: #### U ANTHONY, CMP, CBC, ADIFF, ANEU, GFR, LIPID #### [address] [address] Cholesterol in HDL [Mass/Vol] 48 mg/dL Normal 40-60 [facility] Comment on above: Performed By: #### U ANTHONY, CMP, CBC, ADIFF, ANEU, GFR, LIPID #### [id number] [place], [place] [address] Cholesterol in LDL [Mass/Vol] 40 mg/dL Normal 0-130 [facility] Comment on above: Performed By: #### U ANTHONY, CMP, CBC, ADIFF, ANEU, GFR, LIPID #### [id number] [place], [place] [address] Triglyceride [Mass/Vol] 169 mg/dL High 0-150 [facility] Comment on above: Result Comment: Trig lyceride Reference Interval: Less than 150 Normal 150-199 Borderline high risk 200-499 High risk 500 or higher Very high risk Performed By: #### U ANTHONY, CMP, CBC, ADIFF, ANEU, GFR, LIPID #### [id number] [place], [place] [address] PBNPon 11-29-2023 Natriuretic peptide B (Bld) [Mass/Vol] 357 pg/mL Normal 0-450 [facility] Comment on above: Result Comment: NT-p roBNP results of less than 300 pg/mL effectively rules out acute congestive heart failure with 99% negative predictive value. Performed By: #### P BNP #### [address] [address] URICon 11-29-2023 Uric Acid Lvl 4.1 mg/dL Normal 3.5-7.2 [facility] Comment on above: Performed By: #### U ANTHONY, CMP, CBC, ADIFF, ANEU, GFR, LIPID #### [id number] [place], [place] [address] Chest PA and Lateralon 11-27 Chest PA and Lateral [facility] Imaging Services [address] [place] [address] [id number] Chest PA and Lateral MR#: [id number] Acct: [id number] Name: FREDY BOX Rep #: [id number] : [id number] M [id number] From: Arsh wells MD PCP: Dr. Angela Mera MD Status: [facility] Study: Chest PA and Lateral Date of Exam: 11/28/23 Exam# [id number] Ordering Dr: Po Elmore MD -[id number] INDICATION: COUGH EXAMINATION/TECHNIQ UE: X-RAY - [...] Po Elmore MD; Dr. Angela Mera MD Log Haul Operator: Signed Normal [facility] No Panel Informationon 10-04 Zulema albicans Zulema albicans [facility] Culture Urine 10,000 - 50,000 cfu/ml Zulema albicans Contact Microbiology within 72 hours if further identification is indicated ([id number]). [place] counts from a single urine are equivocal in determining infection vs. colonization of yeast. Multiple cultures at least 24 hours apart may be helpful in differentiating colonization from infection. [facility] Absolute lymphocyte countOrd ered By: Lakesha Bettencourt on 07-23-2023 Lymphocytes Auto (Unsp spec) [#/Vol] 1.10 10*3/uL 0.83-4.51 [facility] Automated lymphocyte count a s percentage of total leukocytesOrdered By: Lakesha Bettencourt on 07-23-2023 Lymphocytes/100 WBC Auto (Unsp spec) 12.8 % 19-41 [facility] Basophil percentageOrdered B y: Lakesha Bettencourt on 07-23-2023 Basophils/100 WBC (Bld) 0.3 % 0-1 [facility] Chloride [Moles/Vol] 110 mmol/L 98-[facility] Eosinophils/100 WBC (Bld) 2.1 % 0-5 [facility] Glucose [Mass/Vol] 105 mg/dL 74-106 [facility] Comment on above: Fasting Glucose resu lt from 100 to 125 mg/dL suggests IMPAIRED HOMEOSTASIS per A.D.A. criteria. Hemoglobin (Bld) [Mass/Vol] 12.3 g/dL 13.0-16.5 [facility] Monocytes/100 WBC (Bld) 10.4 % 0-10 [facility] Neutrophils (Bld) [#/Vol] 6.4 10*3/uL 2.0-7.7 [facility] Neutrophils/100 WBC (Bld) 73.9 % 47-70 [facility] Potassium [Moles/Vol] 3.8 mmol/L 3.5-5.1 [facility] Sodium [Moles/Vol] 140 mmol/L 136-145 [facility] WBC (Bld) [#/Vol] 8.6 10*3/uL 4.4-11.0 [facility] Determination of erythrocyte mean corpuscular volume (MCV)Ordered By: Lakesha Bettencourt on 07-23-2023 MCV (RBC) [Entitic vol] 97.9 fL 80-94 [facility] Erythrocyte distribution wid th ratioOrdered By: Lakesha Bettencourt on 07-23-2023 Erythrocyte distribution width (RBC) [Ratio] 16.5 % 11.6-14.6 [facility] Erythrocyte distribution wid th standard deviationOrdered By: Lakesha Bettencourt on 07-23-2023 Erythrocyte distribution width (RBC) [Entitic vol] 58.7 fL 35.1-43.9 [facility] Hematocrit Auto (Bld) [Volum e fraction]Ordered By: Lakesha Bettencourt on 07-23-2023 Hematocrit (Bld) [Volume fraction] 37.8 % 40-54 [facility] Immature granulocytes/100 WB C Auto (Bld)Ordered By: Lakesha Bettencourt on 07-23-2023 Immature granulocytes/100 WBC (Bld) 0.500 % 0.0-0.9 [facility] Comment on above: IG% - Immature Granu locytes (promyelocytes, myelocytes and metamyelocytes) > 1% indicates that a LEFT SHIFT is Present. Laboratory - Chemistry and C hemistry - challengeOrdered By: Lakesha Bettencourt on 07-23-2023 CO2 [Moles/Vol] 24.0 mmol/L 21.0-32.0 [facility] Natriuretic peptide B (Bld) [Mass/Vol] 45.7 pg/mL 0-100 [facility] Urea nitrogen/Creatinine [Mass ratio] 23.7 mg/mg 10-20 [facility] Laboratory - Hematology and Cell countsOrdered By: Lakesha Bettencourt on 07-23-2023 MCH (RBC) [Entitic mass] 31.9 pg 27.0-32.0 [facility] MCHC (RBC) [Mass/Vol] 32.5 g/dL 32-36 [facility] Nucleated RBC/100 WBC (Bld) [Ratio] 0 % 0-5 [facility] Platelet mean volume (Bld) [Entitic vol] 8.9 fL 6.2-12.0 [facility] Platelets (Bld) [#/Vol] 167 10*3/uL 150-450 [facility] No Panel InformationOrdered By: Lakesha Bettencourt on 07-23-2023 Estimated GFR (MDRD) Amer 51 mL/min >60 [facility] Comment on above: GFR Calc Estimated GFR (MDRD) Non-Af Amer 42 mL/min >60 [facility] Comment on above: Non- GFR Calc Free Triiodothyronine (T3) pg/dL 2.3 pg/mL 2.18-3.98 [facility] RBC Auto (Bld) [#/Vol]Ordere d By: Lakesha Bettencourt on 07-23-2023 RBC (Bld) [#/Vol] 3.86 10*6/uL 4.6-6.2 [facility] Serum or plasma calcium ender urement (mass/volume)Ordered By: Lakesha Bettencourt on 07-23-2023 Calcium [Mass/Vol] 9.4 mg/dL 8.5-10.1 [facility] r [facility] Serum or plasma creatinine m easurement (mass/volume)Ordered By: Lakesha Bettencourt on 07-23-2023 Creatinine [Mass/Vol] 1.69 mg/dL 0.70-1.30 [facility] Comment on above: The validity of the calculated GFR & GFRAA in patients over 70 years has not been determined. Clinical correlation is essential. Serum or plasma thyroid stim ulating hormone (TSH) measurement (units/volume)Ordered By: Lakesha Bettencourt on 07-23-2023 TSH Qn 1.19 uIU/mL 0.358-3.74 [facility] Serum or plasma urea nitroge n measurement (mass/volume)Ordered By: Lakesha Bettencourt on 07-23-2023 Urea nitrogen [Mass/Vol] 40 mg/dL 7-18 [facility] Thin prep Papanicolaou smear with manual screeningOrdered By: Lakesha Bettencourt on 07-23-2023 Thin prep Papanicolaou smear with manual screening 6 5-15 [facility] Thin prep Papanicolaou smear with manual screening 0.84 ng/dL 0.76-1.46 [facility] .Auto Diffon 07-04-2023 Basophil, Absolute 0.0 10 3/mcL Normal 0.0-0.2 [facility] ([place]) Comment on above: Performed By: #### C MP, ADIFF, ANEU, GFR, URIC, CBC #### [address] [address] Basophils/100 WBC (Bld) 0.7 % Normal 0.0-2.5 [facility] ([place]) Comment on above: Performed By: #### C MP, ADIFF, ANEU, GFR, URIC, CBC #### [address] [address] Eosinophil, Absolute 0.3 10 3/mcL Normal 0.0-0.4 [facility] [place] Comment on above: Performed By: #### C MP, ADIFF, ANEU, GFR, URIC, CBC #### [address] [address] Eosinophils/100 WBC (Bld) 6.0 % Normal 0.0-7.0 [facility] ([place]) Comment on above: Performed By: #### C MP, ADIFF, ANEU, GFR, URIC, CBC #### [address] [address] Lymphocyte, Absolute 0.7 10 3/mcL Low 0.8-3.9 [facility] [place] Comment on above: Performed By: #### C MP, ADIFF, ANEU, GFR, URIC, CBC #### [address] [address] Lymphocytes/100 WBC (Bld) 13.7 % Normal 10.0-50.0 [facility] ([place] Comment on above: Performed By: #### C MP, ADIFF, ANEU, GFR, URIC, CBC #### [address] [address] Monocyte, Absolute 0.6 10 3/mcL Normal 0.2-1.0 [facility] ([place] Comment on above: Performed By: #### C MP, ADIFF, ANEU, GFR, URIC, CBC #### [address] [address] Monocytes/100 WBC (Bld) 10.9 % Normal 1.7-13.0 [facility] [place] Comment on above: Performed By: #### C MP, ADIFF, ANEU, GFR, URIC, CBC #### [address] [address] Neutrophils/100 WBC (Bld) 68.7 % Normal 37.0-80.0 [facility] ([place] Comment on above: Performed By: #### C MP, ADIFF, ANEU, GFR, URIC, CBC #### [address] [address] .GFRon 07-04-2023 GFR Non- 37 ml/min/1.73sqm Normal [facility] ([place]) Comment on above: Result Comment: GFR Population [...] MP, ADIFF, ANEU, GFR, URIC, CBC #### [address] [address] GFR 45 ml/min/1.73sqm Normal [facility] ([place] Comment on above: Result Comment: GFR Population [...] MP, ADIFF, ANEU, GFR, URIC, CBC #### [address] [address] .NEUABSon 07-04-2023 Neutrophil, Absolute 3.5 10 3/mcL Normal 2.9-6.2 [facility] [place] Comment on above: Performed By: #### C MP, ADIFF, ANEU, GFR, URIC, CBC #### [address] [address] CBCon 07-04-2023 Erythrocyte distribution width (RBC) [Ratio] 17.9 % High 11.5-14.5 [facility] ([place] Comment on above: Performed By: #### C MP, ADIFF, ANEU, GFR, URIC, CBC #### [address] [address] Hematocrit (Bld) [Volume fraction] 37.2 % Low 42.0-52.0 [facility] ([place] Comment on above: Performed By: #### C MP, ADIFF, ANEU, GFR, URIC, CBC #### [address] [address] Hgb 12.4 G/dL Low 14.0-18.0 [facility] ([place] Comment on above: Performed By: #### C MP, ADIFF, ANEU, GFR, URIC, CBC #### [address] [address] MCH (RBC) [Entitic mass] 33.0 pg High 27.0-31.2 [facility] ([place] Comment on above: Performed By: #### C MP, ADIFF, ANEU, GFR, URIC, CBC #### [address] [address] MCHC 33.4 G/dL Normal 31.8-35.4 [facility] ([place] Comment on above: Performed By: #### C MP, ADIFF, ANEU, GFR, URIC, CBC #### [address] [address] MCV (RBC) [Entitic vol] 98.6 fL High 80.0-94.0 [facility] ([place]) Comment on above: Performed By: #### C MP, ADIFF, ANEU, GFR, URIC, CBC #### [address] [address] Platelet 181 10 3/mcL Normal 130-400 [facility] ([place] Comment on above: Performed By: #### C MP, ADIFF, ANEU, GFR, URIC, CBC #### [address] [address] Platelet mean volume (Bld) [Entitic vol] 7.5 fL Normal 7.4-10.4 [facility] ([place] Comment on above: Performed By: #### C MP, ADIFF, ANEU, GFR, URIC, CBC #### [address] [address] RBC 3.77 10 6/mcL Low 4.04-6.13 [facility] ([place] Comment on above: Performed By: #### C MP, ADIFF, ANEU, GFR, URIC, CBC #### [address] [address] WBC 5.1 10 3/mcL Normal 4.6-10.8 [facility] ([place] Comment on above: Performed By: #### C MP, ADIFF, ANEU, GFR, URIC, CBC #### [address] [address] CMPon 07-04-2023 Albumin Level 3.2 G/dL Low 3.4-4.8 [facility] ([place] Comment on above: Performed By: #### C MP, ADIFF, ANEU, GFR, URIC, CBC #### [address] [address] Albumin/Globulin [Mass ratio] 1.0 {ratio} Low 1.1-2.5 [facility] ([place] Comment on above: Performed By: #### C MP, ADIFF, ANEU, GFR, URIC, CBC #### [address] [address] ALP [Catalytic activity/Vol] 89 U/L Normal 40-135 [facility] ([place] Comment on above: Performed By: #### C MP, ADIFF, ANEU, GFR, URIC, CBC #### [address] [address] ALT [Catalytic activity/Vol] 26 U/L Normal 16-63 [facility] ([place] Comment on above: Performed By: #### C MP, ADIFF, ANEU, GFR, URIC, CBC #### [address] [address] AST [Catalytic activity/Vol] 19 U/L Normal 10-40 [facility]) Comment on above: Performed By: #### C MP, ADIFF, ANEU, GFR, URIC, CBC #### [address] [address] Bili Total 0.4 mg/dL Normal 0.2-1.0 [facility] ([place] Comment on above: Result Comment: Use of this assay is not recommended for patients undergoing treatment with eltrombopag due to the potential for falsely elevated results. Performed By: #### C MP, ADIFF, ANEU, GFR, URIC, CBC #### [address] [address] BUN/Creatinine Ratio 22 ratio Normal 7-27 [facility] ([place]) Comment on above: Performed By: #### C MP, ADIFF, ANEU, GFR, URIC, CBC #### [address] [address] Calcium [Mass/Vol] 8.5 mg/dL Normal 8.4-10.2 [facility] ([place]) Comment on above: Performed By: #### C MP, ADIFF, ANEU, GFR, URIC, CBC #### [address] [address] Chloride [Moles/Vol] 106 mmol/L Normal 98-107 [facility] ([place] Comment on above: Performed By: #### C MP, ADIFF, ANEU, GFR, URIC, CBC #### [place] [address] CO2 [Moles/Vol] 25 mmol/L Normal 23-31 [facility] ([place] Comment on above: Performed By: #### C MP, ADIFF, ANEU, GFR, URIC, CBC #### [address] [address] Creatinine [Mass/Vol] 1.77 mg/dL High 0.70-1.30 [facility] ([place]) Comment on above: Performed By: #### C MP, ADIFF, ANEU, GFR, URIC, CBC #### [address] [address] Electrolyte Balance 8.0 mEq/L Normal 4.0-15.0 [facility] ([place]) Comment on above: Performed By: #### C MP, ADIFF, ANEU, GFR, URIC, CBC #### [address] [address] Globulin 3.3 G/dL Normal [facility] ([place] Comment on above: Performed By: #### C MP, ADIFF, ANEU, GFR, URIC, CBC #### [address] [address] Glucose [Mass/Vol] 103 mg/dL Normal 83-110 [facility] ([place] Comment on above: Performed By: #### C MP, ADIFF, ANEU, GFR, URIC, CBC #### [address] [address] Potassium [Moles/Vol] 4.1 mmol/L Normal 3.5-5.1 [facility] ([place] Comment on above: Performed By: #### C MP, ADIFF, ANEU, GFR, URIC, CBC #### [address] [address] Sodium [Moles/Vol] 139 mmol/L Normal 136-145 [facility] ([place] Comment on above: Performed By: #### C MP, ADIFF, ANEU, GFR, URIC, CBC #### [address] [address] Total Protein 6.5 G/dL Normal 6.4-8.2 [facility]) Comment on above: Performed By: #### C MP, ADIFF, ANEU, GFR, URIC, CBC #### [address] [address] Urea nitrogen [Mass/Vol] 39 mg/dL High 7-18 [facility] ([place] Comment on above: Performed By: #### C MP, ADIFF, ANEU, GFR, URIC, CBC #### [address] [address] LABORATORYOrdered By: SYSTEM SYSTEM on 07-04-2023 Albumin [...] Uric Acid Lvl 6.6 mg/dL Normal 3.5-7.2 [facility] ([place] Comment on above: Performed By: #### C MP, ADIFF, ANEU, GFR, URIC, CBC #### [address] [address] [address] ANGIOGRAPHY CHEST W/CONTR [place] 06-22-2023 CT [...] Date: 06/22/2023 12:25:09 PM Ordering Provider: ANGELA [facility] ([place] XR CHEST 2 VIEWSon XR CHEST 2 [...] 06/22/2023 3:28:10 PM Ordering Provider: ANGELA [facility] [place] .GFRon 06-21-2023 GFR 68 ml/min/1.73sqm [facility] [place] Comment on above: Result Comment: GFR Population [...] MG, MORPH, URIC, CK, TROPHS, DIMER, GFR ####[address] [place], [place] [address] GFR Non- 56 ml/min/1.73sqm Normal [facility] ([place] Comment on above: Result Comment: GFR Population [...] MG, MORPH, URIC, CK, TROPHS, DIMER, GFR ####[address] [place], [place] [address] .Manual Diffon 06-21-2023 Basophil %, Manual 0.0 % Normal 0.0-2.5 [facility] ([place] Comment on above: Performed By: #### C BC, CMP, DIFF, MG, MORPH, URIC, CK, TROPHS, DIMER, GFR ####[address] [place], [place] [address] Basophil, Abs Manual 0.0 10 3/mcL Normal 0.0-0.2 [facility] [place] Comment on above: Performed By: #### C BC, CMP, DIFF, MG, MORPH, URIC, CK, TROPHS, DIMER, GFR ####[address] [place], [place] [address] Eosinophil %, Manual 3.0 % Normal 0.0-7.0 [facility] ([place] Comment on above: Performed By: #### C BC, CMP, DIFF, MG, MORPH, URIC, CK, TROPHS, DIMER, GFR ####[address] [place], [place] [address] Eosinophil, Abs Manual 0.3 10 3/mcL Normal 0.0-0.4 [facility] ([place]) Comment on above: Performed By: #### C BC, CMP, DIFF, MG, MORPH, URIC, CK, TROPHS, DIMER, GFR ####[address] [place], [place] [address] Lymphocyte %, Manual 19.0 % Normal 10.0-50.0 [facility] ([place] Comment on above: Performed By: #### C BC, CMP, DIFF, MG, MORPH, URIC, CK, TROPHS, DIMER, GFR ####[address] [place], [place] [address] Lymphocyte, Abs Manual 1.9 10 3/mcL Normal 0.8-3.9 [facility] ([place]) Comment on above: Performed By: #### C BC, CMP, DIFF, MG, MORPH, URIC, CK, TROPHS, DIMER, GFR ####[address] [place], [place] [address] Monocyte %, Manual 5.0 % Normal 1.7-13.0 [facility] ([place]) Comment on above: Performed By: #### C BC, CMP, DIFF, MG, MORPH, URIC, CK, TROPHS, DIMER, GFR ####[address] [place], [place] [address] Monocyte, Abs Manual 0.5 10 3/mcL Normal 0.2-1.0 [facility] ([place] Comment on above: Performed By: #### C BC, CMP, DIFF, MG, MORPH, URIC, CK, TROPHS, DIMER, GFR ####[address] [place], [place] [address] Neutrophil %, Manual 73.0 % Normal 37.0-80.0 [facility] ([place]) Comment on above: Performed By: #### C BC, CMP, DIFF, MG, MORPH, URIC, CK, TROPHS, DIMER, GFR ####[address] [place], [place] [address] Neutrophil, Abs Manual 7.1 10 3/mcL High 2.9-6.2 [facility] ([place] Comment on above: Performed By: #### C BC, CMP, DIFF, MG, MORPH, URIC, CK, TROPHS, DIMER, GFR ####[address] [place], [place] [address] Nucleated RBC 0.0 /100 WBC Normal [facility] ([place] Comment on above: Performed By: #### C BC, CMP, DIFF, MG, MORPH, URIC, CK, TROPHS, DIMER, GFR ####[address] [place], [place] [address] .Morphon 06-21-2023 Platelet Estimate Normal Normal [facility]) Comment on above: Performed By: #### C BC, CMP, DIFF, MG, MORPH, URIC, CK, TROPHS, DIMER, GFR ####[address] [place], [place] [address] CBCon 06-21-2023 Erythrocyte distribution width (RBC) [Ratio] 18.0 % High 11.5-14.5 [facility] ([place] Comment on above: Performed By: #### C BC, CMP, DIFF, MG, MORPH, URIC, CK, TROPHS, DIMER, GFR ####[address] [place], [place] [address] Hematocrit (Bld) [Volume fraction] 37.5 % Low 42.0-52.0 [facility] ([place] Comment on above: Performed By: #### C BC, CMP, DIFF, MG, MORPH, URIC, CK, TROPHS, DIMER, GFR ####[address] [place], [place] [address] Hgb 12.7 G/dL Low 14.0-18.0 [facility] ([place] Comment on above: Performed By: #### C BC, CMP, DIFF, MG, MORPH, URIC, CK, TROPHS, DIMER, GFR ####[address] [place], [place] [address] MCH (RBC) [Entitic mass] 33.9 pg High 27.0-31.2 [facility] ([place] Comment on above: Performed By: #### C BC, CMP, DIFF, MG, MORPH, URIC, CK, TROPHS, DIMER, GFR ####[address] [place], [place] [address] MCHC 33.9 G/dL Normal 31.8-35.4 [facility] ([place] Comment on above: Performed By: #### C BC, CMP, DIFF, MG, MORPH, URIC, CK, TROPHS, DIMER, GFR ####[address] [place], [place] [address] MCV (RBC) [Entitic vol] 100.1 fL High 80.0-94.0 [facility] ([place] Comment on above: Performed By: #### C BC, CMP, DIFF, MG, MORPH, URIC, CK, TROPHS, DIMER, GFR ####[address] [place], [place] [address] Platelet 228 10 3/mcL Normal 130-400 [facility] ([place] Comment on above: Performed By: #### C BC, CMP, DIFF, MG, MORPH, URIC, CK, TROPHS, DIMER, GFR ####[address] [place], [place] [address] Platelet mean volume (Bld) [Entitic vol] 7.1 fL Low 7.4-10.4 [facility] ([place] Comment on above: Performed By: #### C BC, CMP, DIFF, MG, MORPH, URIC, CK, TROPHS, DIMER, GFR ####[address] [place], [place] [address] RBC 3.74 10 6/mcL Low 4.04-6.13 [facility] ([place] Comment on above: Performed By: #### C BC, CMP, DIFF, MG, MORPH, URIC, CK, TROPHS, DIMER, GFR ####[address] [place], [place] [address] WBC 9.8 10 3/mcL Normal 4.6-10.8 [facility] ([place] Comment on above: Performed By: #### C BC, CMP, DIFF, MG, MORPH, URIC, CK, TROPHS, DIMER, GFR ####[address] [place], [place] [address] CKon 06-21-2023 CK [Catalytic activity/Vol] 50 U/L Normal 39-308 [facility] ([place] Comment on above: Performed By: #### C BC, CMP, DIFF, MG, MORPH, URIC, CK, TROPHS, DIMER, GFR ####[address] [place], [place] [address] CMPon 06-21-2023 Albumin Level 2.7 G/dL Low 3.4-4.8 [facility] ([place] Comment on above: Performed By: #### C BC, CMP, DIFF, MG, MORPH, URIC, CK, TROPHS, DIMER, GFR ####[address] [place], [place] [address] Albumin/Globulin [Mass ratio] 0.8 {ratio} Low 1.1-2.5 [facility] ([place] Comment on above: Performed By: #### C BC, CMP, DIFF, MG, MORPH, URIC, CK, TROPHS, DIMER, GFR ####[address] [place], [place] [address] ALP [Catalytic activity/Vol] 95 U/L Normal 40-135 [facility] ([place] Comment on above: Performed By: #### C BC, CMP, DIFF, MG, MORPH, URIC, CK, TROPHS, DIMER, GFR ####[address] [place], [place] [address] ALT [Catalytic activity/Vol] 59 U/L Normal 16-63 [facility] ([place] Comment on above: Performed By: #### C BC, CMP, DIFF, MG, MORPH, URIC, CK, TROPHS, DIMER, GFR ####[address] [place], [place] [address] AST [Catalytic activity/Vol] 25 U/L Normal 10-40 [facility] ([place] Comment on above: Performed By: #### C BC, CMP, DIFF, MG, MORPH, URIC, CK, TROPHS, DIMER, GFR ####[address] [place], [place] [address] Bili Total 0.4 mg/dL Normal 0.2-1.0 [facility] ([place] Comment on above: Result Comment: Use of this assay is not recommended for patients undergoing treatment with eltrombopag due to the potential for falsely elevated results. Performed By: #### C BC, CMP, DIFF, MG, MORPH, URIC, CK, TROPHS, DIMER, GFR ####[address] [place], [place] [address] BUN/Creatinine Ratio 29 ratio High 7-27 [facility] ([place] Comment on above: Performed By: #### C BC, CMP, DIFF, MG, MORPH, URIC, CK, TROPHS, DIMER, GFR ####[address] [place], [place] [address] Calcium [Mass/Vol] 8.0 mg/dL Low 8.4-10.2 [facility] ([place] Comment on above: Performed By: #### C BC, CMP, DIFF, MG, MORPH, URIC, CK, TROPHS, DIMER, GFR ####[address] [place], [place] [address] Chloride [Moles/Vol] 106 mmol/L Normal 98-107 [facility] ([place] Comment on above: Performed By: #### C BC, CMP, DIFF, MG, MORPH, URIC, CK, TROPHS, DIMER, GFR ####[address] [place], [place] [address] CO2 [Moles/Vol] 27 mmol/L Normal 23-31 [facility] ([place] Comment on above: Performed By: #### C BC, CMP, DIFF, MG, MORPH, URIC, CK, TROPHS, DIMER, GFR ####[address] [place], [place] [address] Creatinine [Mass/Vol] 1.25 mg/dL Normal 0.70-1.30 [facility] ([place]) Comment on above: Performed By: #### C BC, CMP, DIFF, MG, MORPH, URIC, CK, TROPHS, DIMER, GFR ####[address] [place], [place] [address] Electrolyte Balance 12.0 mEq/L Normal 4.0-15.0 [facility] ([place]) Comment on above: Performed By: #### C BC, CMP, DIFF, MG, MORPH, URIC, CK, TROPHS, DIMER, GFR ####[address] [place], [place] [address] Globulin 3.2 G/dL Normal [facility] ([place]) Comment on above: Performed By: #### C BC, CMP, DIFF, MG, MORPH, URIC, CK, TROPHS, DIMER, GFR ####[address] [place], [place] [address] Glucose [Mass/Vol] 75 mg/dL Low 83-110 [facility] ([place]) Comment on above: Performed By: #### C BC, CMP, DIFF, MG, MORPH, URIC, CK, TROPHS, DIMER, GFR ####[id number] [place], [place] [address] Potassium [Moles/Vol] 4.4 mmol/L Normal 3.5-5.1 [facility] ([place]) Comment on above: Performed By: #### C BC, CMP, DIFF, MG, MORPH, URIC, CK, TROPHS, DIMER, GFR ####[id number] [place], [place] [address] Sodium [Moles/Vol] 145 mmol/L Normal 136-145 [facility] ([place]) Comment on above: Performed By: #### C BC, CMP, DIFF, MG, MORPH, URIC, CK, TROPHS, DIMER, GFR ####[address] [place], [place] [address] Total Protein 5.9 G/dL Low 6.4-8.2 [facility] ([place]) Comment on above: Performed By: #### C BC, CMP, DIFF, MG, MORPH, URIC, CK, TROPHS, DIMER, GFR ####[address] [place], [place] [address] Urea nitrogen [Mass/Vol] 36 mg/dL High 7-18 [facility] ([place]) Comment on above: Performed By: #### C BC, CMP, DIFF, MG, MORPH, URIC, CK, TROPHS, DIMER, GFR ####[address] [place], [place] [address] DIMERon 06-21-2023 D-Dimer 789 ng/mL D-DU High 0-230 [facility] ([place]) Comment on above: Result Comment: Resu lts [...] MG, MORPH, URIC, CK, TROPHS, DIMER, GFR ####[id number] [place], [place] [address] LABORATORYOrdered By: SYSTEM SYSTEM on 06-21-2023 Natriuretic [...] ng/L Male: 0-76 ng/L Testing performed on v2tel using a homogeneous sandwich chemiluminescent immunoassay based on Plethora technology. Urea nitrogen [Mass/Vol] 36 mg/dL High [...] 06-21-2023 Magnesium [Mass/Vol] 1.7 mg/dL Low 1.8-2.4 [facility] ([place]) Comment on above: Performed By: #### C BC, CMP, DIFF, MG, MORPH, URIC, CK, TROPHS, DIMER, GFR ####[address] [place], [place] [address] PBNPon 06-21-2023 Natriuretic peptide B (Bld) [Mass/Vol] 2073 pg/mL High 0-450 [facility] ([place]) Comment on above: Result Comment: NT-p roBNP results of less than 300 pg/mL effectively rules out acute congestive heart failure with 99% negative predictive value. Performed By: #### P BNP #### [facility] [address] [place], [place] [address] TROPHSon 06-21-2023 High Sensitivity Troponin I 13 ng/L Normal 0-76 [facility] ([place]) Comment on above: Result Comment: High Sensitive Troponin I Reference Ranges: Female: 0-51 ng/L Male: 0-76 ng/L Testing performed on v2tel using a homogeneous sandwich chemiluminescent immunoassay based on Plethora technology. Performed By: #### C BC, CMP, DIFF, MG, MORPH, URIC, CK, TROPHS, DIMER, GFR ####[address] [place], [place] [address] URICon 06-21-2023 Uric Acid Lvl 4.5 mg/dL Normal 3.5-7.2 [facility] ([place]) Comment on above: Performed By: #### C BC, CMP, DIFF, MG, MORPH, URIC, CK, TROPHS, DIMER, GFR ####[address] [place], [place] [address] Absolute lymphocyte countOrd ered By: Heath Mitchell on 05-03-2023 Lymphocytes Auto (Unsp spec) [#/Vol] 0.98 10*3/uL 0.83-4.51 [facility] Automated lymphocyte count a s percentage of total leukocytesOrdered By: Heath Mitchell on 05-03-2023 Lymphocytes/100 WBC Auto (Unsp spec) 17.7 % 19-41 [facility] Basophil percentageOrdered B y: Heath Mitchell on 05-03-2023 Basophils/100 WBC (Bld) 0.9 % 0-1 [facility] Chloride [Moles/Vol] 110 mmol/L 98-107 [facility] Eosinophils/100 WBC (Bld) 3.4 % 0-5 [facility] Glucose [Mass/Vol] 94 mg/dL 74-106 [facility] Hemoglobin (Bld) [Mass/Vol] 9.7 g/dL 13.0-16.5 [facility] Monocytes/100 WBC (Bld) 14.6 % 0-10 [facility] Neutrophils (Bld) [#/Vol] 3.5 10*3/uL 2.0-7.7 [facility] Neutrophils/100 WBC (Bld) 62.5 % 47-70 [facility] Potassium [Moles/Vol] 4.3 mmol/L 3.5-5.1 [facility] Sodium [Moles/Vol] 142 mmol/L 136-145 [facility] WBC (Bld) [#/Vol] 5.6 10*3/uL 4.4-11.0 [facility] Determination of erythrocyte mean corpuscular volume (MCV)Ordered By: Heath Mitchell on 05-03-2023 MCV (RBC) [Entitic vol] 106.6 fL 80-94 [facility] Erythrocyte distribution wid th ratioOrdered By: [facility] on 05-03-2023 Erythrocyte distribution width (RBC) [Ratio] 15.2 % 11.6-14.6 [facility] Erythrocyte distribution wid th standard deviationOrdered By: [facility] Center[facility]i Guzmanyunior on 05-03-2023 Erythrocyte distribution width (RBC) [Entitic vol] 58.5 fL 35.1-43.9 [facility] Hematocrit Auto (Bld) [Volum e fraction]Ordered By: Heath Mitchell on 05-03-2023 Hematocrit (Bld) [Volume fraction] 30.9 % 40-54 [facility] Immature granulocytes/100 WB C Auto (Bld)Ordered By: [facility] on 05-03-2023 Immature granulocytes/100 WBC (Bld) 0.900 % 0.0-0.9 [facility] Comment on above: IG% - Immature Granu locytes (promyelocytes, myelocytes and metamyelocytes) > 1% indicates that a LEFT SHIFT is Present. Laboratory - Chemistry and C hemistry - challengeOrdered By: Heath Mitchell on 05-03-2023 CO2 [Moles/Vol] 25.0 mmol/L 21.0-32.0 [facility] Urea nitrogen/Creatinine [Mass ratio] 22.3 mg/mg 10-20 [facility] Laboratory - Hematology and Cell countsOrdered By: Carasenecajoi Mitchell on 05-03-2023 MCH (RBC) [Entitic mass] 33.4 pg 27.0-32.0 [facility] MCHC (RBC) [Mass/Vol] 31.4 g/dL 32-36 [facility] Nucleated RBC/100 WBC (Bld) [Ratio] 0.4 % 0-5 [facility] Platelet mean volume (Bld) [Entitic vol] 9.1 fL 6.2-12.0 [facility] Platelets (Bld) [#/Vol] 339 10*3/uL 150-450 [facility] No Panel InformationOrdered By: Heath Mitchell on 05-03-2023 Estimated GFR (MDRD) Amer 75 mL/min >60 [facility] Comment on above: GFR Calc Estimated GFR (MDRD) Non-Af Amer 62 mL/min >60 [facility] Comment on above: Non- GFR Calc RBC Auto (Bld) [#/Vol]Ordere d By: Heath Mitchell on 05-03-2023 RBC (Bld) [#/Vol] 2.90 10*6/uL 4.6-6.2 [facility] Serum or plasma calcium ender urement (mass/volume)Ordered By: Heath Mitchell on 05-03-2023 Calcium [Mass/Vol] 8.9 mg/dL 8.5-10.1 [facility] Serum or plasma creatinine m easurement (mass/volume)Ordered By: Heath Mitchell on 05-03-2023 Creatinine [Mass/Vol] 1.21 mg/dL 0.70-1.30 [facility] Comment on above: The validity of the calculated GFR & GFRAA in patients over 70 years has not been determined. Clinical correlation is essential. Serum or plasma urea nitroge n measurement (mass/volume)Ordered By: Heath Mitchell on 05-03-2023 Urea nitrogen [Mass/Vol] 27 mg/dL 7-18 [facility] Thin prep Papanicolaou smear with manual screeningOrdered By: Heath Mitchell on 05-03-2023 Thin prep Papanicolaou smear with manual screening 7 5-15 [facility] Absolute lymphocyte countOrd ered By: Heath Mitchell on 04-26-2023 Lymphocytes Auto (Unsp spec) [#/Vol] 0.78 10*3/uL 0.83-4.51 [facility] Automated lymphocyte count a s percentage of total leukocytesOrdered By: Heath Mitchell on 04-26-2023 Lymphocytes/100 WBC Auto (Unsp spec) 13.6 % 19-41 [facility] Basophil percentageOrdered B y: Heath Mitchell on 04-26-2023 Basophils/100 WBC (Bld) 0.5 % 0-1 [facility] Chloride [Moles/Vol] 113 mmol/L 98-107 [facility] Eosinophils/100 WBC (Bld) 1.6 % 0-5 [facility] Glucose [Mass/Vol] 92 mg/dL 74-106 [facility] Hemoglobin (Bld) [Mass/Vol] 8.9 g/dL 13.0-16.5 [facility] Monocytes/100 WBC (Bld) 10.5 % 0-10 [facility] Neutrophils (Bld) [#/Vol] 4.2 10*3/uL 2.0-7.7 [facility] Neutrophils/100 WBC (Bld) 72.9 % 47-70 [facility] Potassium [Moles/Vol] 4.1 mmol/L 3.5-5.1 [facility] Sodium [Moles/Vol] 141 mmol/L 136-145 [facility] WBC (Bld) [#/Vol] 5.7 10*3/uL 4.4-11.0 [facility] Determination of erythrocyte mean corpuscular volume (MCV)Ordered By: Heath Mitchell on 04-26-2023 MCV (RBC) [Entitic vol] 103.7 fL 80-94 [facility] Erythrocyte distribution wid th ratioOrdered By: Carasenecajoi Mitchell on 04-26-2023 Erythrocyte distribution width (RBC) [Ratio] 15.0 % 11.6-14.6 [facility] Erythrocyte distribution wid th standard deviationOrdered By: Carasenecajoi Mitchell on 04-26-2023 Erythrocyte distribution width (RBC) [Entitic vol] 55.8 fL 35.1-43.9 [facility] Hematocrit Auto (Bld) [Volum e fraction]Ordered By: Heath Mitchell on 04-26-2023 Hematocrit (Bld) [Volume fraction] 27.8 % 40-54 [facility] Immature granulocytes/100 WB C Auto (Bld)Ordered By: Heath Mitchell on 04-26-2023 Immature granulocytes/100 WBC (Bld) 0.900 % 0.0-0.9 [facility] Comment on above: IG% - Immature Granu locytes (promyelocytes, myelocytes and metamyelocytes) > 1% indicates that a LEFT SHIFT is Present. Laboratory - Chemistry and C hemistry - challengeOrdered By: Heath Mitchell on 04-26-2023 CO2 [Moles/Vol] 25.0 mmol/L 21.0-32.0 [facility] Urea nitrogen/Creatinine [Mass ratio] 24.5 mg/mg 10-20 [facility] Laboratory - Hematology and Cell countsOrdered By: Heath Mitchell on 04-26-2023 MCH (RBC) [Entitic mass] 33.2 pg 27.0-32.0 [facility] MCHC (RBC) [Mass/Vol] 32.0 g/dL 32 [facility] Nucleated RBC/100 WBC (Bld) [Ratio] 0 % 0-5 [facility] Platelet mean volume (Bld) [Entitic vol] 9.5 fL 6.2-12.0 [facility] Platelets (Bld) [#/Vol] 278 10*3/uL 150-450 [facility] No Panel InformationOrdered By: Heath Mitchell on 04-26-2023 Estimated GFR (MDRD) Amer 87 mL/min >60 [facility] Comment on above: GFR Calc Estimated GFR (MDRD) Non-Af Amer 72 mL/min >60 [facility] Comment on above: Non- GFR Calc RBC Auto (Bld) [#/Vol]Ordere d By: Heath Mitchell on 04-26-2023 RBC (Bld) [#/Vol] 2.68 10*6/uL 4.6-6.2 ost er [facility] Serum or plasma calcium ender urement (mass/volume)Ordered By: Heath Mitchell on 04-26-2023 Calcium [Mass/Vol] 8.8 mg/dL 8.5-10.1 [facility] r [facility] Serum or plasma creatinine m easurement (mass/volume)Ordered By: Heath Mitchell on 04-26-2023 Creatinine [Mass/Vol] 1.06 mg/dL 0.70-1.30 [facility] Comment on above: The validity of the calculated GFR & GFRAA in patients over 70 years has not been determined. Clinical correlation is essential. Serum or plasma urea nitroge n measurement (mass/volume)Ordered By: Brooklynrobjoi Mitchell on 04-26-2023 Urea nitrogen [Mass/Vol] 26 mg/dL 7-18 [facility] Thin prep Papanicolaou smear with manual screeningOrdered By: Heath Mitchell on 04-26-2023 Thin prep Papanicolaou smear with manual screening 3 5-15 [facility] Absolute lymphocyte countOrd ered By: [facility] Guzmanyunior on 04-20-2023 Lymphocytes Auto (Unsp spec) [#/Vol] 0.76 10*3/uL 0.83-4.51 [facility] Automated lymphocyte count a s percentage of total leukocytesOrdered By: Heath Mitchell on 04-20-2023 Lymphocytes/100 WBC Auto (Unsp spec) 11.0 % 19-41 [facility] Basophil percentageOrdered B y: Carajohnjoi Mitchell on 04-20-2023 Basophils/100 WBC (Bld) 0.3 % 0-1 [facility] Bilirubin [Mass/Vol] 2.00 mg/dL 0.20-1.00 [facility] Comment on above: For patients on eltr ombopag therapy, use of Dimension [place] TBIL is not recommended. Chloride [Moles/Vol] 114 mmol/L 98-107 [facility] Eosinophils/100 WBC (Bld) 2.2 % 0-5 [facility] Glucose [Mass/Vol] 100 mg/dL 74-106 [facility] Comment on above: Fasting Glucose resu lt from 100 to 125 mg/dL suggests IMPAIRED HOMEOSTASIS per A.D.A. criteria. Hemoglobin (Bld) [Mass/Vol] 8.5 g/dL 13.0-16.5 [facility] Monocytes/100 WBC (Bld) 8.7 % 0-10 [facility] Neutrophils (Bld) [#/Vol] 5.1 10*3/uL 2.0-7.7 [facility] Neutrophils/100 WBC (Bld) 72.9 % 47-70 [facility] Potassium [Moles/Vol] 3.7 mmol/L 3.5-5.1 [facility] Protein [Mass/Vol] 6.3 g/dL 6.4-8.2 [facility] Sodium [Moles/Vol] 144 mmol/L 136-145 [facility] WBC (Bld) [#/Vol] 6.9 10*3/uL 4.4-11.0 [facility] Determination of erythrocyte mean corpuscular volume (MCV)Ordered By: Heath Mitchell on 04-20-2023 MCV (RBC) [Entitic vol] 105.9 fL 80-94 [facility] Erythrocyte distribution wid th ratioOrdered By: [facility] Thomasyunior on 04-20-2023 Erythrocyte distribution width (RBC) [Ratio] 14.6 % 11.6-14.6 [facility] Erythrocyte distribution wid th standard deviationOrdered By: [facility] Thomasyunior on 04-20-2023 Erythrocyte distribution width (RBC) [Entitic vol] 55.2 fL 35.1-43.9 [facility] Hematocrit Auto (Bld) [Volum e fraction]Ordered By: [facility] Thomasyunior on 04-20-2023 Hematocrit (Bld) [Volume fraction] 26.8 % 40-54 [facility] Immature granulocytes/100 WB C Auto (Bld)Ordered By: [facility] Thomasyunior on 04-20-2023 Immature granulocytes/100 WBC (Bld) 4.900 % 0.0-0.9 [facility] Comment on above: IG% - Immature Granu locytes (promyelocytes, myelocytes and metamyelocytes) > 1% indicates that a LEFT SHIFT is Present. Laboratory - Chemistry and C hemistry - challengeOrdered By: [facility] on 04-20-2023 Albumin/Globulin [Mass ratio] 0.7 {ratio} 0.9-2.4 [facility] ALP [Catalytic activity/Vol] 77 U/L 45-117 [facility] ALT [Catalytic activity/Vol] 83 U/L 16-61 [facility] CO2 [Moles/Vol] 27.0 mmol/L 21.0-32.0 [facility] Globulin (S) [Mass/Vol] 3.8 g/dL 2.2-4.2 [facility] Urea nitrogen/Creatinine [Mass ratio] 19.6 mg/mg 10-20 [facility] Laboratory - Hematology and Cell countsOrdered By: Heath Mitchell on 04-20-2023 MCH (RBC) [Entitic mass] 33.6 pg 27.0-32.0 [facility] MCHC (RBC) [Mass/Vol] 31.7 g/dL 32-36 [facility] Nucleated RBC/100 WBC (Bld) [Ratio] 1.4 % 0-5 [facility] Platelets (Bld) [#/Vol] 204 10*3/uL 150-450 [facility] No Panel InformationOrdered By: Heath Mitchell on 04-20-2023 Estimated GFR (MDRD) Amer 82 mL/min >60 [facility] Comment on above: GFR Calc Estimated GFR (MDRD) Non-Af Amer 67 mL/min >60 [facility] Comment on above: Non- GFR Calc Platelet mean volume Roderick-Ec ker (Bld) [Entitic vol]Ordered By: Heath Mitchell on 04-20-2023 Platelet mean volume (Bld) [Entitic vol] 9.9 fL 6.2-12.0 [facility] RBC Auto (Bld) [#/Vol]Ordere d By: Heath Mitchell on 04-20-2023 RBC (Bld) [#/Vol] 2.53 10*6/uL 4.6-6.2 [facility] Serum or plasma calcium ender urement (mass/volume)Ordered By: Heath Mitchell on 04-20-2023 Calcium [Mass/Vol] 8.5 mg/dL 8.5-10.1 [facility] Serum or plasma creatinine m easurement (mass/volume)Ordered By: Heath Mitchell on 04-20-2023 Creatinine [Mass/Vol] 1.12 mg/dL 0.70-1.30 [facility] Comment on above: The validity of the calculated GFR & GFRAA in patients over 70 years has not been determined. Clinical correlation is essential. Serum or plasma urea nitroge n measurement (mass/volume)Ordered By: Heath Mitchell on 04-20-2023 Urea nitrogen [Mass/Vol] 22 mg/dL 7-18 [facility] Thin prep Papanicolaou smear with manual screeningOrdered By: Heath Mitchell on 04-20-2023 Thin prep Papanicolaou smear with manual screening 2.5 g/dL 3.2-5.0 [facility] Thin prep Papanicolaou smear with manual screening 84 U/L 15-37 [facility] Thin prep Papanicolaou smear with manual screening 3 5-15 [facility] COVID-19 virus antigen assay Ordered By: Jesse Slade on 04-18-2023 SARS-CoV-2 (COVID-19) Ag IA.rapid Ql (Resp) [facility] SARS-CoV-2 (COVID-19) Ag IA.rapid Ql (Resp) [facility] Absolute lymphocyte countOrd ered By: Jesse Slade on 04-17-2023 Lymphocytes Auto (Unsp spec) [#/Vol] 0.69 10*3/uL 0.83-4.51 [facility] Automated lymphocyte count a s percentage of total leukocytesOrdered By: Jesse Slade on 04-17-2023 Lymphocytes/100 WBC Auto (Unsp spec) 15.3 % 19-41 [facility] Basophil percentageOrdered B y: Jesse Slade on 04-17-2023 Basophils/100 WBC (Bld) 0.2 % 0-1 [facility] Chloride [Moles/Vol] 119 mmol/L 98-107 [facility] Eosinophils/100 WBC (Bld) 0.9 % 0-5 [facility] Glucose [Mass/Vol] 106 mg/dL 74-106 [facility] Comment on above: Fasting Glucose resu lt from 100 to 125 mg/dL suggests IMPAIRED HOMEOSTASIS per A.D.A. criteria. Hemoglobin (Bld) [Mass/Vol] 8.1 g/dL 13.0-16.5 [facility] Monocytes/100 WBC (Bld) 9.8 % 0-10 [facility] Neutrophils (Bld) [#/Vol] 3.2 10*3/uL 2.0-7.7 [facility] Neutrophils/100 WBC (Bld) 71.8 % 47-70 [facility] Potassium [Moles/Vol] 3.9 mmol/L 3.5-5.1 [facility] Sodium [Moles/Vol] 145 mmol/L 136-145 [facility] WBC (Bld) [#/Vol] 4.5 10*3/uL 4.4-11.0 [facility] Determination of erythrocyte mean corpuscular volume (MCV)Ordered By: Jesse Slade on 04-17-2023 MCV (RBC) [Entitic vol] 105.8 fL 80-94 [facility] Erythrocyte distribution wid th ratioOrdered By: Jesse lSade on 04-17-2023 Erythrocyte distribution width (RBC) [Ratio] 14.5 % 11.6-14.6 [facility] Erythrocyte distribution wid th standard deviationOrdered By: Jesse Slade on 04-17-2023 Erythrocyte distribution width (RBC) [Entitic vol] 56.6 fL 35.1-43.9 [facility] Hematocrit Auto (Bld) [Volum e fraction]Ordered By: Jesse Slade on 04-17-2023 Hematocrit (Bld) [Volume fraction] 25.4 % 40-54 [facility] Immature granulocytes/100 WB C Auto (Bld)Ordered By: Jesse Slade on 04-17-2023 Immature granulocytes/100 WBC (Bld) 2.000 % 0.0-0.9 [facility] Comment on above: IG% - Immature Granu locytes (promyelocytes, myelocytes and metamyelocytes) > 1% indicates that a LEFT SHIFT is Present. Laboratory - Chemistry and C hemistry - challengeOrdered By: Jsese Slade on 04-17-2023 CO2 [Moles/Vol] 24.0 mmol/L 21.0-32.0 [facility] Urea nitrogen/Creatinine [Mass ratio] 26.0 mg/mg 10-20 [facility] Laboratory - Hematology and Cell countsOrdered By: Jesse Slade on 04-17-2023 MCH (RBC) [Entitic mass] 33.8 pg 27.0-32.0 [facility] MCHC (RBC) [Mass/Vol] 31.9 g/dL 32-36 [facility] Nucleated RBC/100 WBC (Bld) [Ratio] 0.7 % 0-5 [facility] Platelets (Bld) [#/Vol] 102 10*3/uL 150-450 [facility] No Panel InformationOrdered By: Jesse Slade on 04-17-2023 Estimated Creatinine Clearance Calc 53.79 ml/min [facility] Estimated GFR (MDRD) Amer 73 mL/min >60 [facility] Comment on above: GFR Calc Estimated GFR (MDRD) Non-Af Amer 60 mL/min >60 [facility] Comment on above: Non- GFR Calc Platelet mean volume Roderick-Ec ker (Bld) [Entitic vol]Ordered By: Jesse Slade on 04-17-2023 Platelet mean volume (Bld) [Entitic vol] 10.4 fL 6.2-12.0 [facility] RBC Auto (Bld) [#/Vol]Ordere d By: Jesse Slade on 04-17-2023 RBC (Bld) [#/Vol] 2.40 10*6/uL 4.6-6.2 [facility] Serum or plasma calcium ender urement (mass/volume)Ordered By: Jesse Slade on 04-17-2023 Calcium [Mass/Vol] 8.1 mg/dL 8.5-10.1 [facility] Serum or plasma creatinine m easurement (mass/volume)Ordered By: Jesse Slade on 04-17-2023 Creatinine [Mass/Vol] 1.23 mg/dL 0.70-1.30 [facility] Comment on above: The validity of the calculated GFR & GFRAA in patients over 70 years has not been determined. Clinical correlation is essential. Serum or plasma urea nitroge n measurement (mass/volume)Ordered By: Jesse Slade on 04-17-2023 Urea nitrogen [Mass/Vol] 32 mg/dL 7-18 [facility] Thin prep Papanicolaou smear with manual screeningOrdered By: Jesse Slade on 04-17-2023 Thin prep Papanicolaou smear with manual screening 2 5-15 [facility] Basophil percentageOrdered B y: William Padilla on 04-16-2023 Basophil percentage 25-50 SEEN /hpf 0-5 [facility] Basophil percentageOrdered B y: Tesha Layne on 04-16-2023 Bilirubin [Mass/Vol] 0.50 mg/dL 0.20-1.00 [facility] Comment on above: For patients on eltr ombopag therapy, use of Dimension [place] TBIL is not recommended. Protein [Mass/Vol] 5.4 g/dL 6.4-8.2 [facility] Bilirubin Test strip Ql (U)O rdered By: William Padilla on 04-16-2023 Bilirubin Ql (U) Negative Negative [facility] Ketones Test strip Ql (U)Ord ered By: William Padilla on 04-16-2023 Ketones Ql (U) Negative Negative [facility] Laboratory - Chemistry and C hemistry - challengeOrdered By: Teshacong Layne on 04-16-2023 Albumin/Globulin [Mass ratio] 0.6 {ratio} 0.9-2.4 [facility] ALP [Catalytic activity/Vol] 62 U/L 45-117 [facility] ALT [Catalytic activity/Vol] 115 U/L 16-61 [facility] CK [Catalytic activity/Vol] 3011 U/L 39-308 [facility] Globulin (S) [Mass/Vol] 3.3 g/dL 2.2-4.2 [facility] Mucus LM Ql (Urine sed)Order ed By: William Padilla on 04-16-2023 Mucus Ql (Urine sed) 0 SEEN /hpf [facility] Nitrite Test strip Ql (U)Ord ered By: William Padilla on 04-16-2023 Nitrite Ql (U) Negative Negative [facility] No Panel InformationOrdered By: William Padilla on 04-16-2023 Urine RBC 10-25 SEEN /hpf 0-5 [facility] Protein Test strip Ql (U)Ord ered By: William Padilla on 04-16-2023 Protein Ql (U) 30 mg/dl Negative [facility] Squamous epithelial cells de tection in urine sediment by light microscopyOrdered By: William Padilla on 04-16-2023 Epithelial cells.squamous LM Ql (Urine sed) 0 SEEN /hpf 0-5 [facility] Thin prep Papanicolaou smear with manual screeningOrdered By: Tesha Layne on 04-16-2023 Thin prep Papanicolaou smear with manual screening 2.1 g/dL 3.2-5.0 [facility] Thin prep Papanicolaou smear with manual screening 227 U/L 15-37 [facility] Urine blood detectionOrdered By: William Padilla on 04-16-2023 RBC Ql (U) 150 /ul Negative [facility] Urine clarityOrdered By: Giovanna Padilla on 04-16-2023 Clarity (U) Clear Clear [facility] Urine color determinationOrd ered By: William Padilla on 04-16-2023 Color (U) Yellow Yellow [facility] Urine glucose detectionOrder ed By: William Padilla on 04-16-2023 Glucose Ql (U) Normal mg/dl Normal [facility] Urine leukocyte esterase det ection by dipstickOrdered By: William Padilla on 04-16-2023 Leukocyte esterase Test strip Ql (U) 500 /ul Negative [facility] Urine pHOrdered By: William fernandez on 04-16-2023 pH (U) 6.0 [pH] 5.0 - 8.0 [facility] Urine sediment bacteria coun t by microscopy (number/high power field)Ordered By: William Padilla on 04-16-2023 Bacteria LM.HPF (Urine sed) [#/Area] 1 /[HPF] None Seen [facility] Urine sediment yeast count b y microscopy (number/high powered field)Ordered By: William Padilla on 04-16-2023 Yeast LM.HPF (Urine sed) [#/Area] 2 /[HPF] None Seen [facility] Urine specific gravity measu rementOrdered By: William Padilla on 04-16-2023 Specific gravity (U) [Rel density] 1.010 1.002-1.030 [facility] Urine urobilinogen measureme ntOrdered By: William Padilla on 04-16-2023 Urobilinogen Ql (U) Normal mg/dl Normal [facility] Blood manual differential co mment interpretation (narrative result)Ordered By: Tesha Layne on 04-14-2023 Manual differential comment Cesar (Bld) [Interp] SCANNED [facility] Activated partial thrombopla stin time (aPTT) in platelet poor plasma by coagulation aOrdered By: Tesha Roverto on 04-13-2023 aPTT Coag (PPP) [Time] 105.1 s 24.1-36.2 [facility] Comment on above: CRITICAL VALUE VERIF IED. CALLED TO DARRYN FERREIRA ([facility])04/13/23 1405 Tadeo Vera.RESULTS READ BACK BY SAME. Absolute lymphocyte countOrd ered By: William Padilla on 04-12-2023 Lymphocytes Auto (Unsp spec) [#/Vol] 0.54 10*3/uL 0.83-4.51 [facility] Automated lymphocyte count a s percentage of total leukocytesOrdered By: William Padilla on 04-12-2023 Lymphocytes/100 WBC Auto (Unsp spec) 6.2 % 19-41 [facility] Basophil percentageOrdered B y: William Padilla on 04-12-2023 Lactate [Moles/Vol] 1.1 mmol/L 0.4-2.0 [facility] Basophils/100 WBC (Bld) 0.1 % 0-1 [facility] Bilirubin [Mass/Vol] 0.70 mg/dL 0.20-1.00 [facility] Comment on above: For patients on eltr ombopag therapy, use of Dimension [place] TBIL is not recommended. Chloride [Moles/Vol] 112 mmol/L 98-107 [facility] Eosinophils/100 WBC (Bld) 0.0 % 0-5 [facility] Glucose [Mass/Vol] 93 mg/dL 74-106 [facility] Hemoglobin (Bld) [Mass/Vol] 13.6 g/dL 13.0-16.5 [facility] Lactate [Moles/Vol] 2.3 mmol/L 0.4-2.0 [facility] Comment on above: Critical Result(s) C alled at: 11:50:34 04/12/2023 by: Halie Rey to [facility]. Results read back by same. Monocytes/100 WBC (Bld) 9.4 % 0-10 [facility] Neutrophils (Bld) [#/Vol] 7.4 10*3/uL 2.0-7.7 [facility] Neutrophils/100 WBC (Bld) 84.0 % 47-70 [facility] Potassium [Moles/Vol] 4.0 mmol/L 3.5-5.1 [facility] Protein [Mass/Vol] 7.3 g/dL 6.4-8.2 [facility] Sodium [Moles/Vol] 141 mmol/L 136-145 [facility] WBC (Bld) [#/Vol] 8.8 10*3/uL 4.4-11.0 [facility] Basophil percentageOrdered B y: Tesha Layne on 04-12-2023 Cholesterol [Mass/Vol] 103 mg/dL <200 [facility] Comment on above: <200 mg/dL Desirable 200-240 mg/dL Borderline >240 mg/dL High Risk Triglyceride [Mass/Vol] 100 mg/dL <199 [facility] Comment on above: The drugs N-Acetylcy steine and Metamizole may falsely depress this assay.Serum Triglycerides Reference Interval Normal <150 mg/dL Borderline high 150 - 199 mg/dL High 200 - 499 mg/dL Very High > or = 500 mg/dL Blood manual differential co mment interpretation (narrative result)Ordered By: William Padilla on 04-12-2023 Manual differential comment Cesar (Bld) [Interp] COMMENT [facility] Comment on above: LYMPHOPENIA. Determination of erythrocyte mean corpuscular volume (MCV)Ordered By: William Padilla on 04-12-2023 MCV (RBC) [Entitic vol] 100.7 fL 80-94 [facility] Erythrocyte distribution wid th ratioOrdered By: William Padilla on 04-12-2023 Erythrocyte distribution width (RBC) [Ratio] 14.1 % 11.6-14.6 [facility] Erythrocyte distribution wid th standard deviationOrdered By: William Padilla on 04-12-2023 Erythrocyte distribution width (RBC) [Entitic vol] 51.8 fL 35.1-43.9 [facility] Hematocrit Auto (Bld) [Volum e fraction]Ordered By: William Padilla on 04-12-2023 Hematocrit (Bld) [Volume fraction] 41.1 % 40-54 [facility] High density lipoprotein (HD L) measurementOrdered By: Tesha Layne on 04-12-2023 Cholesterol in HDL (Body fld) [Mass/Vol] 54 mg/dL >40 [facility] Comment on above: The drugs N-Acetylcy steine and Metamizole may falsely depress this assay. Reference Range HDL <40 mg/dL Low HDL Cholesterol HDL >or= 60 mg/dL High HDL Cholesterol Immature granulocytes/100 WB C Auto (Bld)Ordered By: William Padilla on 04-12-2023 Immature granulocytes/100 WBC (Bld) 0.300 % 0.0-0.9 [facility] Comment on above: IG% - Immature Granu locytes (promyelocytes, myelocytes and metamyelocytes) > 1% indicates that a LEFT SHIFT is Present. International normalized rat io (INR) calculationOrdered By: Tesha Layne on 04-12-2023 INR Coag (PPP) [Relative time] 1.2 {INR} [facility] Laboratory - Chemistry and C hemistry - challengeOrdered By: William Padilla on 04-12-2023 Albumin/Globulin [Mass ratio] 0.7 {ratio} 0.9-2.4 [facility] ALP [Catalytic activity/Vol] 85 U/L 45-117 [facility] ALT [Catalytic activity/Vol] 162 U/L 16-61 [facility] CK [Catalytic activity/Vol] 89716 U/L 39-308 [facility] CO2 [Moles/Vol] 18.0 mmol/L 21.0-32.0 [facility] Globulin (S) [Mass/Vol] 4.2 g/dL 2.2-4.2 [facility] Lipase [Catalytic activity/Vol] 42 U/L 13-75 [facility] Comment on above: Please note:LIPASE r evised reference range effective 22. New Lipase methodology. Expected to produce lower values than the previous assay method. NEW Reference Range: 13 - 75 U/L Urea nitrogen/Creatinine [Mass ratio] 21.1 mg/mg 10-20 [facility] Laboratory - CoagulationOrde red By: Tesha Layne on 04-12-2023 PT Coag (PPP) [Time] 15.0 s 11.7-14.9 [facility] - Hematology and Cell countsOrdered By: William Padilla on 04-12-2023 MCH (RBC) [Entitic mass] 33.3 pg 27.0-32.0 [facility] MCHC (RBC) [Mass/Vol] 33.1 g/dL 32-36 [facility] Nucleated RBC/100 WBC (Bld) [Ratio] 0 % 0-5 [facility] Platelets (Bld) [#/Vol] 123 10*3/uL 150-450 [facility] - Microbiology an d Antimicrobial susceptibilityOrdered By: William Padilla on 04-12-2023 SARS-CoV-2 (COVID-19) RNA RONIT+probe Ql (Unsp spec) Influenzae A [facility] Bacteria identified Cx Nom (Bld) No growth in 5 days. [facility] Bacteria identified Cx Nom (Bld) No growth in 5 days. [facility] Low density lipoprotein (LDL ) cholesterol measurementOrdered By: Tesha Layne on 04-12-2023 Cholesterol in LDL (Body fld) [Moles/Vol] 29 mg/dL 0-130 [facility] No Panel InformationOrdered By: Tesha Layne on 04-12-2023 Troponin I High Sensitivity 2612 pg/mL 3.0-78.0 [facility] Comment on above: Critical Result(s) C alled at: 17:44:43 04/12/2023 by: Rossana ECHAVARRIA. Results read back by same. Please Note: New Test Units and Gender Specific Reference Ranges. For more information see Policy Stat Procedure [place] High Sensitivity Troponin (TNIH) and attachments. No Panel InformationOrdered By: William Padilla on 04-12-2023 Estimated Creatinine Clearance Calc 20.51 ml/min [facility] Estimated GFR (MDRD) Amer 24 mL/min >60 [facility] Comment on above: GFR Calc Estimated GFR (MDRD) Non-Af Amer 20 mL/min >60 [facility] Comment on above: Non- GFR Calc Troponin I High Sensitivity 3604 pg/mL 3.0-78.0 [facility] Comment on above: Critical Result(s) C alled at: 11:50:34 04/12/2023 by: Halie Rey to [facility]. Results read back by same. Please Note: New Test Units and Gender Specific Reference Ranges. For more information see Policy Stat Procedure [place] High Sensitivity Troponin (TNIH) and attachments. Platelet mean volume Roderick-Ec ker (Bld) [Entitic vol]Ordered By: William Padilla on 04-12-2023 Platelet mean volume (Bld) [Entitic vol] 9.8 fL 6.2-12.0 [facility] RBC Auto (Bld) [#/Vol]Ordere d By: William Padilla on 04-12-2023 RBC (Bld) [#/Vol] 4.08 10*6/uL 4.6-6.2 [facility] Serum or plasma calcium ender urement (mass/volume)Ordered By: William Padilla on 04-12-2023 Calcium [Mass/Vol] 8.7 mg/dL 8.5-10.1 [facility] Serum or plasma creatinine m easurement (mass/volume)Ordered By: William Padilla on 04-12-2023 Creatinine [Mass/Vol] 3.27 mg/dL 0.70-1.30 [facility] Comment on above: The validity of the calculated GFR & GFRAA in patients over 70 years has not been determined. Clinical correlation is essential. Serum or plasma urea nitroge n measurement (mass/volume)Ordered By: William Padilla on 04-12-2023 Urea nitrogen [Mass/Vol] 69 mg/dL 7-18 [facility] Thin prep Papanicolaou smear with manual screeningOrdered By: William Padilla on 04-12-2023 Thin prep Papanicolaou smear with manual screening 3.1 g/dL 3.2-5.0 [facility] Thin prep Papanicolaou smear with manual screening 576 U/L 15-37 [facility] Thin prep Papanicolaou smear with manual screening 11 5-15 [facility] Very low density lipoprotein (VLDL) cholesterol measurementOrdered By: Tesha Layne on 04-12-2023 Cholesterol in VLDL Calc [Moles/Vol] 20 mg/dL 5-40 [facility] Whole blood hemoglobin A1c/t otal hemoglobin ratio (mass fraction)Ordered By: Tesha Layne on 04-12-2023 HbA1c (Bld) [Mass fraction] 5.6 % 3.8-5.6 [facility] Comment on above: Normal < 5.7 % Predi abetic 5.7 - 6.4 % Diabetic >or= 6.5 % Please note range changes. .Auto Diffon 02-28-2023 Basophil, Absolute 0.0 10 3/mcL Normal 0.0-0.2 [facility] ([place]) Comment on above: Performed By: #### T SH, LIPID, URIC, ANEU, CBC, PSA, ADIFF, FT4, GFR, CMP ####[address] [place], [place] [address] Basophils/100 WBC (Bld) 0.4 % Normal 0.0-2.5 [facility] ([place]) Comment on above: Performed By: #### T SH, LIPID, URIC, ANEU, CBC, PSA, ADIFF, FT4, GFR, CMP ####[address] [place], [place] [address] Eosinophil, Absolute 0.3 10 3/mcL Normal 0.0-0.4 [facility] ([place] Comment on above: Performed By: #### T SH, LIPID, URIC, ANEU, CBC, PSA, ADIFF, FT4, GFR, CMP ####[address] [place], [place] [address] Eosinophils/100 WBC (Bld) 5.3 % Normal 0.0-7.0 [facility] ([place] Comment on above: Performed By: #### T SH, LIPID, URIC, ANEU, CBC, PSA, ADIFF, FT4, GFR, CMP ####[address] [place], [place] [address] Lymphocyte, Absolute 1.1 10 3/mcL Normal 0.8-3.9 [facility] [place] Comment on above: Performed By: #### T SH, LIPID, URIC, ANEU, CBC, PSA, ADIFF, FT4, GFR, CMP ####[address] [place], [place] [address] Lymphocytes/100 WBC (Bld) 17.3 % Normal 10.0-50.0 [facility] ([place] Comment on above: Performed By: #### T SH, LIPID, URIC, ANEU, CBC, PSA, ADIFF, FT4, GFR, CMP ####[address] [place], [place] [address] Monocyte, Absolute 0.7 10 3/mcL Normal 0.2-1.0 [facility] ([place] Comment on above: Performed By: #### T SH, LIPID, URIC, ANEU, CBC, PSA, ADIFF, FT4, GFR, CMP ####[address] [place], [place] [address] Monocytes/100 WBC (Bld) 11.3 % Normal 1.7-13.0 [facility] [place] Comment on above: Performed By: #### T SH, LIPID, URIC, ANEU, CBC, PSA, ADIFF, FT4, GFR, CMP ####[address] [place], [place] [address] Neutrophils/100 WBC (Bld) 65.7 % Normal 37.0-80.0 [facility] ([place] Comment on above: Performed By: #### T SH, LIPID, URIC, ANEU, CBC, PSA, ADIFF, FT4, GFR, CMP ####[address] [place], [place] [address] .GFRon 02-28-2023 GFR Non- 46 ml/min/1.73sqm Normal [facility] ([place] Comment on above: Result Comment: GFR Population [...] ANEU, CBC, PSA, ADIFF, FT4, GFR, CMP ####[address] [place], [place] [address] GFR 56 ml/min/1.73sqm Normal [facility] ([place] Comment on above: Result Comment: GFR Population [...] ANEU, CBC, PSA, ADIFF, FT4, GFR, CMP ####[address] [place], [place] [address] .NEUABSon 02-28-2023 Neutrophil, Absolute 4.0 10 3/mcL Normal 2.9-6.2 [facility] [place] Comment on above: Performed By: #### T SH, LIPID, URIC, ANEU, CBC, PSA, ADIFF, FT4, GFR, CMP ####[address] [place], [place] [address] CBCon 02-28-2023 Erythrocyte distribution width (RBC) [Ratio] 14.7 % High 11.5-14.5 [facility] ([place] Comment on above: Performed By: #### T SH, LIPID, URIC, ANEU, CBC, PSA, ADIFF, FT4, GFR, CMP ####[address] [place], [place] [address] Hematocrit (Bld) [Volume fraction] 38.5 % Low 42.0-52.0 [facility] ([place] Comment on above: Performed By: #### T SH, LIPID, URIC, ANEU, CBC, PSA, ADIFF, FT4, GFR, CMP ####[address] [place], [place] [address] Hgb 13.0 G/dL Low 14.0-18.0 [facility] ([place] Comment on above: Performed By: #### T SH, LIPID, URIC, ANEU, CBC, PSA, ADIFF, FT4, GFR, CMP ####[address] [place] [address] MCH (RBC) [Entitic mass] 34.8 pg High 27.0-31.2 [facility] ([place] Comment on above: Performed By: #### T SH, LIPID, URIC, ANEU, CBC, PSA, ADIFF, FT4, GFR, CMP ####[address] [place], [place] [address] MCHC 33.8 G/dL Normal 31.8-35.4 [facility] ([place] Comment on above: Performed By: #### T SH, LIPID, URIC, ANEU, CBC, PSA, ADIFF, FT4, GFR, CMP ####[address] [place] [address] MCV (RBC) [Entitic vol] 103.0 fL High 80.0-94.0 [facility] ([place] Comment on above: Performed By: #### T SH, LIPID, URIC, ANEU, CBC, PSA, ADIFF, FT4, GFR, CMP ####[address] [place], [place] [address] Platelet 161 10 3/mcL Normal 130-400 [facility] ([place] Comment on above: Performed By: #### T SH, LIPID, URIC, ANEU, CBC, PSA, ADIFF, FT4, GFR, CMP ####[address] [place], [place] [address] Platelet mean volume (Bld) [Entitic vol] 7.6 fL Normal 7.4-10.4 [facility] ([place] Comment on above: Performed By: #### T SH, LIPID, URIC, ANEU, CBC, PSA, ADIFF, FT4, GFR, CMP ####[address] [place], [place] [address] RBC 3.73 10 6/mcL Low 4.04-6.13 [facility] ([place] Comment on above: Performed By: #### T SH, LIPID, URIC, ANEU, CBC, PSA, ADIFF, FT4, GFR, CMP ####[address] [place], [place] [address] WBC 6.1 10 3/mcL Normal 4.6-10.8 [facility] ([place] Comment on above: Performed By: #### T SH, LIPID, URIC, ANEU, CBC, PSA, ADIFF, FT4, GFR, CMP ####[address] [place], [place] [address] CMPon 02-28-2023 ALT [Catalytic activity/Vol] 24 U/L Normal 16-63 [facility] ([place] Comment on above: Performed By: #### T SH, LIPID, URIC, ANEU, CBC, PSA, ADIFF, FT4, GFR, CMP ####[address] [place], [place] [address] Albumin Level 3.4 G/dL Normal 3.4-4.8 [facility] ([place] Comment on above: Performed By: #### T SH, LIPID, URIC, ANEU, CBC, PSA, ADIFF, FT4, GFR, CMP ####[address] [place], [place] [address] Albumin/Globulin [Mass ratio] 0.9 {ratio} Low 1.1-2.5 [facility] ([place] Comment on above: Performed By: #### T SH, LIPID, URIC, ANEU, CBC, PSA, ADIFF, FT4, GFR, CMP ####[address] [place], [place] [address] ALP [Catalytic activity/Vol] 115 U/L Normal 40-135 [facility] ([place] Comment on above: Performed By: #### T SH, LIPID, URIC, ANEU, CBC, PSA, ADIFF, FT4, GFR, CMP ####[address] [place] [address] AST [Catalytic activity/Vol] 18 U/L Normal 10-40 [facility] ([place] Comment on above: Performed By: #### T SH, LIPID, URIC, ANEU, CBC, PSA, ADIFF, FT4, GFR, CMP ####[address] [place], [place] [address] Bili Total 0.6 mg/dL Normal 0.2-1.0 [facility] ([place] Comment on above: Result Comment: Use of this assay is not recommended for patients undergoing treatment with eltrombopag due to the potential for falsely elevated results. Performed By: #### T SH, LIPID, URIC, ANEU, CBC, PSA, ADIFF, FT4, GFR, CMP ####[address] [place] [id number] BUN/Creatinine Ratio 22 ratio Normal 7-27 [facility] ([place] Comment on above: Performed By: #### T SH, LIPID, URIC, ANEU, CBC, PSA, ADIFF, FT4, GFR, CMP ####[address] [place], [place] [address] Calcium [Mass/Vol] 9.2 mg/dL Normal 8.4-10.2 [facility] ([place] Comment on above: Performed By: #### T SH, LIPID, URIC, ANEU, CBC, PSA, ADIFF, FT4, GFR, CMP ####[address] [place], [place] [address] Chloride [Moles/Vol] 108 mmol/L High 98-107 [facility] ([place] Comment on above: Performed By: #### T SH, LIPID, URIC, ANEU, CBC, PSA, ADIFF, FT4, GFR, CMP ####[address] [place] [id number] CO2 [Moles/Vol] 25 mmol/L Normal 23-31 [facility] ([place] Comment on above: Performed By: #### T SH, LIPID, URIC, ANEU, CBC, PSA, ADIFF, FT4, GFR, CMP ####[address] [place] [id number] Creatinine [Mass/Vol] 1.48 mg/dL High 0.70-1.30 [facility] ([place] Comment on above: Performed By: #### T SH, LIPID, URIC, ANEU, CBC, PSA, ADIFF, FT4, GFR, CMP ####[address] [place], [place] [address] Electrolyte Balance 10.0 mEq/L Normal 4.0-15.0 [facility] ([place] Comment on above: Performed By: #### T SH, LIPID, URIC, ANEU, CBC, PSA, ADIFF, FT4, GFR, CMP ####[address] [place], [place] [address] Globulin 3.6 G/dL Normal [facility] ([place] Comment on above: Performed By: #### T SH, LIPID, URIC, ANEU, CBC, PSA, ADIFF, FT4, GFR, CMP ####[address] [place], [place] [address] Glucose [Mass/Vol] 95 mg/dL Normal 83-110 [facility] ([place] Comment on above: Performed By: #### T SH, LIPID, URIC, ANEU, CBC, PSA, ADIFF, FT4, GFR, CMP ####[address] [place], [place] [address] Potassium [Moles/Vol] 4.3 mmol/L Normal 3.5-5.1 [facility] ([place] Comment on above: Performed By: #### T SH, LIPID, URIC, ANEU, CBC, PSA, ADIFF, FT4, GFR, CMP ####[address] [place], [place] [address] Sodium [Moles/Vol] 143 mmol/L Normal 136-145 [facility] ([place] Comment on above: Performed By: #### T SH, LIPID, URIC, ANEU, CBC, PSA, ADIFF, FT4, GFR, CMP ####[address] [place], [place] [address] Total Protein 7.0 G/dL Normal 6.4-8.2 [facility] ([place] Comment on above: Performed By: #### T SH, LIPID, URIC, ANEU, CBC, PSA, ADIFF, FT4, GFR, CMP ###[address] [place], [place] [address] Urea nitrogen [Mass/Vol] 33 mg/dL High 7-18 [facility] ([place] Comment on above: Performed By: #### T SH, LIPID, URIC, ANEU, CBC, PSA, ADIFF, FT4, GFR, CMP ###[address] [place], [place] [address] FT4on 02-28-2023 Free T4 [Mass/Vol] 0.74 ng/dL Low 0.76-1.46 [facility] ([place] Comment on above: Performed By: #### T SH, LIPID, URIC, ANEU, CBC, PSA, ADIFF, FT4, GFR, CMP ###[address] [place], [place] [address] LABORATORYOrdered By: SYSTEM SYSTEM on 02-28-2023 Albumin [...] 02-28-2023 Cholesterol [Mass/Vol] 126 mg/dL Normal 0-200 [facility] Comment on above: Result Comment: Chol esterol Reference Interval: Less than 200 Desirable 200-239 Borderline high risk 240 and above High risk Performed By: #### T SH, LIPID, URIC, ANEU, CBC, PSA, ADIFF, FT4, GFR, CMP ####[address] [address] Cholesterol in HDL [Mass/Vol] 52 mg/dL Normal 40-60 [facility] ([place] Comment on above: Performed By: #### T SH, LIPID, URIC, ANEU, CBC, PSA, ADIFF, FT4, GFR, CMP ####[address] [place], [place] [address] Cholesterol in LDL [Mass/Vol] 53 mg/dL Normal 0-130 [facility] ([place] Comment on above: Performed By: #### T SH, LIPID, URIC, ANEU, CBC, PSA, ADIFF, FT4, GFR, CMP ####[address] [place], [place] [address] Triglyceride [Mass/Vol] 105 mg/dL Normal 0-150 [facility] ([place] Comment on above: Result Comment: Trig lyceride Reference Interval: Less than 150 Normal 150-199 Borderline high risk 200-499 High risk 500 or higher Very high risk Performed By: #### T SH, LIPID, URIC, ANEU, CBC, PSA, ADIFF, FT4, GFR, CMP ####[address] [place], [place] [address] PSAon 02-28-2023 Prostate Specific Antigen 0.95 ng/mL Normal 0.00-4.00 [facility] ([place] Comment on above: Performed By: #### T SH, LIPID, URIC, ANEU, CBC, PSA, ADIFF, FT4, GFR, CMP ####[address] [place], [place] [address] TSHon 02-28-2023 TSH Qn 1.72 m[IU]/L Normal 0.36-3.74 [facility] ([place] Comment on above: Performed By: #### T SH, LIPID, URIC, ANEU, CBC, PSA, ADIFF, FT4, GFR, CMP ####[address] [place], [place] [address] URICon 02-28-2023 Uric Acid Lvl 5.8 mg/dL Normal 3.5-7.2 [facility] ([place] Comment on above: Performed By: #### T SH, LIPID, URIC, ANEU, CBC, PSA, ADIFF, FT4, GFR, CMP ####[address] [place], [place] [address] MRI BRAIN WITHOUT IV CONTRAS Ton 01-12-2022 MRI BRAIN WITHOUT IV CONTRAST EXAM: MRI BRAIN WITHOUT IV CONTRAST HISTORY: Mild cognitive impairment of uncertain or unknown etiology: COMPARISON: None. TECHNIQUE: Multiplanar multisequence MR imaging of the brain was performed without intravenous contrast. FINDINGS: Calvarium/skull base: No focal marrow replacing lesion suggestive of neoplasm. Orbits: Bilateral [place] ocular lens replacements. Paranasal sinuses: Subtotal opacification [...] memory loss; nki; no prev sx Normal [facility] VAS ANKLE BRACHIAL INDEXon 0 12-16-2021 VAS [...] indexes bilaterally Normal digital index bilaterally Normal [facility] SARS-COV-2, TMAon 12-07-2021 SARS-CoV-2 (COVID-19) RNA RONIT+probe Ql (Unsp spec) Positive Abnormal Negative [facility] Comment on above: Result Comment: Posi tive results are indicative of the presence of SARS-CoV-2 RNA; clinical correlation with patient history and other diagnostic information is necessary to determine patient infection status. Positive results do not rule out bacterial infection or co-infection with other viruses. The agent detected may not be the definite cause of disease. The Aptima SARS-CoV-2 assay on the Qik system is a nucleic acid amplification test(NAAT)intended for use by qualified clinical laboratory personnel specifically instructed and trained in the operation of the Dixon system and in vitro diagnostic procedures. The Aptima SARS-CoV-2 assay is only for use under the Food and Drug Administration's Emergency Use Authorization. Performed By: #### P COVI #### [place] [address] SARS-COV-2, TMAon 10-02-2021 SARS-CoV-2 (COVID-19) RNA RONIT+probe Ql (Unsp spec) Negative Normal Negative [facility] Comment on above: Result Comment: Nega tive results do not preclude SARS-CoV-2 infection and should not be used as the sole basis for patient management decisions. Negative results must be combined with clinical observations, patient history, and epidemiological information. The Aptima SARS-CoV-2 assay on the Dixon system is a nucleic acid amplification test(NAAT)intended for use by qualified clinical laboratory personnel specifically instructed and trained in the operation of the Dixon system and in vitro diagnostic procedures. The Aptima SARS-CoV-2 assay is only for use under the Food and Drug Administration's Emergency Use Authorization. Performed By: #### P COVI #### [place] [address] SARS-COV-2, QPCRon SARS-CoV-2 (COVID-19) RNA RONIT+probe Ql (Unsp spec) Detected Abnormal Not Detected [facility] Comment on above: Result Comment: Resu lts [...] and epidemiological information. Performed By: #### [id number] #### [employer] [place] [address] PSA TOTAL DIAGNOSTICon 03-23 PSA Total Diag 0.55 ng/mL 0 - 4 ng/mL [facility] Comment on above: PSA testing performe d using [employer] methodology. XR Abdomen 1 Viewon 03-23-19 21 1. Given differences in technique, there is unchanged multifocal bilateral nephrolithiasis, as described. 2. Otherwise, no significant change. . [facility] EXAMINATION: ONE SUPINE XRAY VIEW(S) OF [...] other clinically-signific ant changes are noted. . [facility] [place], Rad Results In - 03/23/2020 [...] described. 2. Otherwise, no significant change. . [facility] Uric acidon 11-03-2019 Urate [Mass/Vol] 5.3 mg/dL 3.7 - 8.2 mg/dL [facility] [facility] CBC with Differentialon Absolute [place] 0.6 [facility] Basophils (Bld) [#/Vol] 0.0 10*3/uL [facility] Basophils/100 WBC (Bld) 0.2 % [facility] Eosinophils (Bld) [#/Vol] 0.2 10*3/uL [facility] Eosinophils/100 WBC (Bld) 2.9 % [facility] Erythrocyte distribution width (RBC) [Ratio] 14.5 % 11.5 - 14.5 % [facility] Hematocrit (Bld) [Volume fraction] 43.0 % 37.7 - 51.1 % [facility] Hemoglobin (Bld) [Mass/Vol] 14.4 g/dL 12.8 - 17.7 g/dL [facility] Interpretation and review of laboratory results Abnormal Yasmani Audiotoniq [facility] Lymphocytes (Bld) [#/Vol] 1.0 10*3/uL Low [facility] Lymphocytes/100 WBC (Bld) 19.3 % [facility] MCH (RBC) [Entitic mass] 33.4 pg 27 - 34.2 p g [facility] MCHC (RBC) [Mass/Vol] 33.5 g/dL 31.4 - 36.2 g/dl [facility] MCV (RBC) [Entitic vol] 99.8 fL High 80.6 - 99 fL [facility] Monocytes/100 WBC (Bld) 11.3 % [facility] Neutrophils (Bld) [#/Vol] 3.4 10*3/uL [facility] Neutrophils/100 WBC (Bld) 66.3 % [facility] Platelets (Bld) [#/Vol] 152.0 10*3/uL [facility] RBC (Bld) [#/Vol] 4.31 10*6/uL [facility] WBC LM Ql (Sput) 5.1 [facility] Comprehensive metabolic pane l aka [employer] 08-25-2019 Albumin [Mass/Vol] 3.8 g/dL 3.5 - 5 g/dL [facility] Alk Phos 76 U/L 24 - 126 U/L [facility] ALT [Catalytic activity/Vol] 15 U/L 4 - 50 U/L [facility] AST [Catalytic activity/Vol] 21 U/L 3 - 55 U/L [facility] Bilirubin [Mass/Vol] 0.9 mg/dL 0.2 - 1 .6 mg/dL [facility] Calcium [Mass/Vol] 8.9 mg/dL 8.4 - 10. 4 mg/dL [facility] Chloride [Moles/Vol] 107 mmol/L 96 - 10 9 mmol/L [facility] CO2 [Moles/Vol] 26 mmol/L 22 - 30 mmol/L [facility] Comprehensive metabolic 2000 panel 1.03 mg/dL 0.66 - 1.25 mg/dL [facility] Glucose [Mass/Vol] 93 mg/dL 65 - 100 mg/dL [facility] Potassium [Moles/Vol] 4.4 mmol/L 3.6 - 5.1 mmol/L [facility] Protein [Mass/Vol] 6.9 g/dL 6.3 - 8.2 g/dL [facility] Sodium [Moles/Vol] 139 mmol/L 135 - 147 mmol/L [facility] Urea nitrogen [Mass/Vol] 25 mg/dL 8 - 26 mg/d L [facility] GLOMERULAR FILTRATION RATEon 08-25-2019 GFR/1.73 sq M.predicted MDRD (S/P/Bld) [Vol rate/Area] mL/min/{1.73_m2} Yasmani Audiotoniq [facility] Comment on above: To estimate the [...] 115 mg/dL 0 - 2 00 mg/dL Yasmani Audiotoniq [facility] Comment on above: CHOLESTEROL REFERENC E RANGE Desirable <200 mg/dL Borderline 200-239 mg/dL High >240 mg/dL . Cholesterol in HDL [Mass/Vol] 44.9 mg/dL 40 - 59.9 mg/dL Yasmani Audiotoniq [facility] Comment on above: Interpretive data fo r HDL Cholesterol states: HDL <40 mg/dL is low and constitutes a coronary disease risk factor. HDL >60 mg/dL is a negative risk factor for coronary heart disease. . Cholesterol in LDL [Mass/Vol] 59 mg/dL 0 - 100 mg/dL [employer] Comment on above: LDL REFERENCE RANGE Optimal <100 mg/dl Near Optimal 100-129 mg/dL Borderline High 130-159 mg/dL High 160-189 mg/dL Very High >=190 mg/dL . Cholesterol in VLDL [Mass/Vol] 12 mg/dL <42 [facility] Triglyceride [Mass/Vol] 58 mg/dL 0 - 150 mg/dL [facility] Comment on above: TRIGLYCERIDE REFEREN CE RANGE Normal <150 mg/dL Borderline High 150-199 mg/dL High 200-499 mg/dL Very High >=500 mg/dL . TSHon 08-25-2019 TSH Qn 1.790 m[IU]/L [facility] PSA Total Diagnosticon 08-19 PSA Total Diag 0.69 ng/mL 0 - 4 ng/mL [facility] Comment on above: PSA testing performe d using [employer] methodology. GLOMERULAR FILTRATION RATEon 03-21-2019 GFR/1.73 sq M.predicted MDRD (S/P/Bld) [Vol rate/Area] mL/min/{1.73_m2} [facility] Comment on above: To estimate the [...] panel 1.05 mg/dL 0.66 - 1.25 mg/dL Yasmani Audiotoniq [facility] PSA Total [employer] 02-25 PSA Total Diag 1.05 ng/mL 0 - 4 ng/mL [facility] Comment on above: PSA testing performe d using [employer] methodology. XR Abdomen 1 Viewon 02-26-20 19 Stable bilateral nephrolithiasis. [employer] EXAMINATION: ONE SUPINE XRAY VIEW(S) OF THE ABDOMEN 02/25/2019 10:08 am COMPARISON: February 06, 2018 HISTORY: Calculus of kidney:Calculus in bladder: Diagnosis: Kidney stone N20.0 (ICD-10-CM) FINDINGS: Bowel gas pattern nonobstructed. Similar bilateral nephrolithiasis unchanged from previous. No definite ureteral stones. Osseous structures grossly intact. [facility] Rogers, Rad Results In - 02/25/2019 12:00 PM EST EXAMINATION: ONE SUPINE XRAY VIEW(S) OF THE ABDOMEN 02/25/2019 10:08 am COMPARISON: February 06, 2018 HISTORY: Calculus of kidney:Calculus in bladder: Diagnosis: Kidney stone N20.0 (ICD-10-CM) FINDINGS: Bowel gas pattern nonobstructed. Similar bilateral nephrolithiasis unchanged from previous. No definite ureteral stones. Osseous structures grossly intact. IMPRESSION: Stable bilateral nephrolithiasis. [facility] Vital Signs Date Time Vital Sign Value Performing Clinician Facility 10-19-2024 18:49-0400 Body temperature 98.6 [degF] Dr. Angela Mera MD Work Phone: [facility] 10-19-2024 18:49-0400 Diastolic blood pressure 76 mm[Hg] Dr. Angela Mera MD Work Phone: [facility] 10-19-2024 18:49-0400 Heart rate 78 /min Dr. Angela Mera MD Work Phone: [facility] 10-19-2024 18:49-0400 Respiratory rate 16 /min Dr. Angela Mera MD Work Phone: [facility] 10-19-2024 18:49-0400 SaO2% (BldA) [Mass fraction] 98 % Dr. Angela Mera MD Work Phone: [facility] 10-19-2024 18:49-0400 Systolic blood pressure 142 mm[Hg] Dr. Angela Mera MD Work Phone: [facility] 10-19-2024 07:33-0400 Body mass index (BMI) [Ratio] 30.7 kg/m2 Dr. Angela Mera MD Work Phone: [facility] 10-19-2024 07:33-0400 Body weight 91.[address] Angela Mera MD Work Phone: [facility] 10-19-2024 07:21-0400 Body height 172.[address] Angela Mera MD Work Phone: [facility] 09-18-2024 13:41-0400 Body height 172.[address] Angela Mera MD Work Phone: [facility] 09-18-2024 13:41-0400 Body mass index (BMI) [Ratio] 29.5 kg/m2 Dr. Angela Mera MD Work Phone: [facility] 09-18-2024 13:41-0400 Body weight 87.[address] Angela Mera MD Work Phone: [facility] 09-18-2024 13:41-0400 Diastolic blood pressure 66 mm[Hg] Dr. Angela Mera MD Work Phone: [facility] 09-18-2024 13:41-0400 Heart rate 61 /min Dr. Angela Mera MD Work Phone: [facility] 09-18-2024 13:41-0400 Respiratory rate 18 /min Dr. Angela Mera MD Work Phone: [facility] 09-18-2024 13:41-0400 SaO2% (BldA) [Mass fraction] 94 % Dr. Angela Mera MD Work Phone: [facility] 09-18-2024 13:41-0400 Systolic blood pressure 105 mm[Hg] Dr. Angela Mera MD Work Phone: [facility] 07-23-2023 08:33-0400 Body height 172.[address] Angela Mera Work Phone: [facility] 07-23-2023 08:33-0400 Body mass index (BMI) [Ratio] 31.9 kg/m2 Dr. Angela Mera Work Phone: [facility] 07-23-2023 08:33-0400 Body weight 95.[address] Angela Mera Work Phone: [facility] 07-23-2023 08:33-0400 Diastolic blood pressure 71 mm[Hg] Dr. Angela Mera Work Phone: [facility] 07-23-2023 08:33-0400 Heart rate 60 /min Dr. Angela Mera Work Phone: [facility] 07-23-2023 08:33-0400 Respiratory rate 20 /min Dr. Angela Mera Work Phone: [facility] 07-23-2023 08:33-0400 SaO2% (BldA) [Mass fraction] 96 % Dr. Angela Mera Work Phone: [facility] 07-23-2023 08:33-0400 Systolic blood pressure 121 mm[Hg] Dr. Angela Mera Work Phone: [facility] 05-22-2023 11:14-0500 Body mass index (BMI) [Ratio] 30.4 kg/m2 Dr. Angela Mera Work Phone: [facility] 05-22-2023 11:14-0500 Body weight 90.[address] Angela Mera Work Phone: [facility] 05-22-2023 11:14-0500 Diastolic blood pressure 54 mm[Hg] Dr. Angela Mera Work Phone: [facility] 05-22-2023 11:14-0500 Heart rate 58 /min Dr. Angela Mera Work Phone: [facility] 05-22-2023 11:14-0500 Respiratory rate 18 /min Dr. Angela Mera Work Phone: [facility] 05-22-2023 11:14-0500 Systolic blood pressure 96 mm[Hg] Dr. Angela Mera Work Phone: [facility] 04-18-2023 16:07-0500 Body temperature 97.9 [degF] Dr. Angela Mera Work Phone: [facility] 04-18-2023 16:07-0500 Diastolic blood pressure 71 mm[Hg] Dr. Angela Mera Work Phone: [facility] 04-18-2023 16:07-0500 Heart rate 65 /min Dr. Angela Mera Work Phone: [facility] 04-18-2023 16:07-0500 Respiratory rate 17 /min Dr. Angela Mera Work Phone: [facility] 04-18-2023 16:07-0500 SaO2% (BldA) [Mass fraction] 95 % Dr. Angela Mera Work Phone: [facility] 04-18-2023 16:07-0500 Systolic blood pressure 158 mm[Hg] Dr. Angela Mrea Work Phone: [facility] 04-16-2023 10:57-0500 Body height 172.[address] Angela Mera Work Phone: [facility] 04-16-2023 10:57-0500 Body weight 89.[address] Angela Mera Work Phone: [facility] 04-16-2023 09:12-0500 Inhaled oxygen flow rate 2 L/min Dr. Angela Mera Work Phone: [facility] 04-12-2023 14:07-0500 Body mass index (BMI) [Ratio] 29.9 kg/m2 Dr. Angela Mera Work Phone: [facility] 04-12-2023 13:30-0500 Diastolic blood pressure 57 mm[Hg] [facility] 04-12-2023 13:30-0500 Heart rate 70 /min [facility] 04-12-2023 13:30-0500 Inhaled oxygen flow rate 2 L/min [facility] 04-12-2023 13:30-0500 Respiratory rate 25 /min [facility] 04-12-2023 13:30-0500 SaO2% (BldA) [Mass fraction] 93 % [facility] 04-12-2023 13:30-0500 Systolic blood pressure 97 mm[Hg] [facility] 04-12-2023 10:35-0500 Body height 172.72 cm [facility] 04-12-2023 10:35-0500 Body mass index (BMI) [Ratio] 30.9 kg/m2 [facility] 04-12-2023 10:35-0500 Body temperature 99 [degF] [facility] 04-12-2023 10:35-0500 Body weight 92.1 kg [facility] 04-19-2021 13:32-0500 Body height 172.7 cm Rosa Khan MD Work Phone: [facility] 04-19-2021 13:32-0500 Body mass index (BMI) [Ratio] 32.2 kg/m2 Rosa Khan MD Work Phone: [facility] 04-19-2021 13:32-0500 Body weight 96.07 kg Rosa Khan MD Work Phone: [facility] 04-19-2021 13:32-0500 Diastolic blood pressure 72 mm[Hg] Rosa Khan MD Work Phone: [facility] 04-19-2021 13:32-0500 Heart rate 60 /min Rosa Khan MD Work Phone: [facility] 04-19-2021 13:32-0500 Respiratory rate 16 /min Rosa Khan MD Work Phone: [facility] 04-19-2021 13:32-0500 Systolic blood pressure 152 mm[Hg] Rosa Khan MD Work Phone: [facility] 02-19-2019 11:01-0500 BP Diastolic 62 mm[Hg] [facility] 02-19-2019 11:01-0500 BP Systolic 125 mm[Hg] [facility] 02-19-2019 11:01-0500 Pulse (Heart Rate) 46 /min Ben Hola [facility] 02-19-2019 11:01-0500 Pulse Oximetry 93 % [facility] 02-19-2019 11:01-0500 Respiratory Rate 19 /min [facility] 02-19-2019 10:40-0500 Body Temperature 97.39 [degF] [facility] 02-19-2019 09:26-0500 BMI (Body Mass Index) 28.02 kg/m2 [facility] 02-19-2019 09:26-0500 Body weight 88.[address] [facility] 02-19-2019 09:26-0500 Height 177.[address] [facility] Encounters Encounter Date Encounter Type Care Provider Facility Start: 10-30-2024 ambulatory ANGELA MERA MD Faci lity:A Start: 10-27-2024 Evaluation and manag ement of inpatient DR JEFFERY DAO MD Facility:A Start: 10-23-2024 End: 10-23-2024 Patient encounter procedure SARINA VIVEROS MD [facility] Start: 10-23-2024 End: 10-23-2024 ambulatory ANGELA MERA MD Facility:[facility] Start: 10-19-2024 End: 10-21-2024 Evaluation and management of inpatient MARY LUGO MD [facility] Start: 10-19-2024 End: 10-19-2024 Emergency department patient visit Dr. Angela Mera MD Work Phone: -Emergency Department Work Phone: Start: 09-22-2024 End: 09-22-[address] Angela Mera MD Work Phone: -Laboratory Start: 09-22-2024 End: 09-22-[address] Jack Fuller MD -Laboratory Work Phone: Start: 09-22-2024 End: 09-22-2024 ambulatory Jack Fuller Facility:[facility] Start: 09-18-2024 End: 09-18-[address] Jack Fuller MD -[facility] Work Phone: Start: 09-18-2024 End: 09-18-[address] Angela Mera MD Work Phone: -[facility] Start: 08-26-2024 End: 08-26-2024 ambulatory ANGELA MERA MD Facility:[facility] Start: 08-26-2024 End: 08-26-2024 Patient encounter procedure ANGELA MERA MD [facility] Start: 08-18-2024 End: 08-22-2024 ambulatory ANGELA MERA MD Facility:[facility] Start: 08-18-2024 End: 08-22-2024 Outreach Lab JANET GILL ENT CONSULTANT-JUDO TEACHER [facility] Start: 08-18-2024 End: 08-22-2024 ambulatory ANGELA MERA MD Facility:[facility] Start: 08-18-2024 End: 08-22-2024 Outreach Lab JANET GILL ENT CONSULTANT-JUDO TEACHER [facility] Start: 08-06-2024 End: 08-06-2024 ambulatory ANGELA MERA MD Facility:[facility] Start: 08-06-2024 End: 08-06-2024 Patient encounter procedure ANGELA MERA MD [facility] Start: 04-14-2024 End: 04-14-2024 ambulatory ANGELA MERA MD Facility:[facility] Start: 04-14-2024 End: 04-14-2024 Patient encounter procedure ANGELA MERA MD [facility] Start: 12-12-2023 End: 12-12-2023 ambulatory Angela Mera Facility:[facility] Start: 11-29-2023 End: 11-29-2023 ambulatory ANGELA MERA MD Facility:[facility] Start: 11-29-2023 End: 11-29-2023 Patient encounter procedure ANGELA MERA MD [facility] Start: 11-28-2023 End: 11-28-2023 ambulatory Po Elmore Facility:[facility] Start: 10-05-2023 End: 10-09-2023 ambulatory ANGELA MERA MD Facility:B Start: 10-05-2023 End: 10-09-2023 Outreach Lab ANGELA MERA MD [facility] Start: 07-23-2023 End: 07-23-[address] Angela Mera Work Phone: [facility] Work Phone: Start: 07-23-2023 End: 07-23-[address] Angela Mera Work Phone: [facility] Work Phone: Start: 07-04-2023 End: 07-08-2023 ambulatory ANGELA MERA MD Facility:B Start: 07-04-2023 End: 07-08-2023 Outreach Lab ANGELA MERA MD [facility] Start: 06-22-2023 End: 06-22-2023 ambulatory ANGELA MERA MD Facility:B Start: 06-21-2023 End: 06-21-2023 ambulatory ANGELA MERA MD Facility:B Start: 06-21-2023 End: 06-21-2023 Patient encounter procedure ANGELA MERA MD [facility] Start: 05-22-2023 End: 05-22-[address] Angela Mera Work Phone: [facility] Work Phone: Start: 05-18-2023 End: 05-18-2023 ambulatory ANGELA MERA MD Facility:B Start: 05-18-2023 End: 05-18-2023 Patient encounter procedure ANGELA MERA MD [facility] Start: 05-03-[address] Angela Mera Work Phone: [facility] Start: 04-26-[address] Angela Mera Work Phone: [facility] Start: 04-24-2023 End: 04-24-[address] Angela Mera Work Phone: [facility] Work Phone: Start: 04-20-[address] Angela Mera Work Phone: [facility] Start: 04-19-2023 End: 04-19-[address] Angela Mera Work Phone: [facility] Work Phone: Start: 04-18-2023 Non-patient / Non-visit Dr. Chen Work Phone: [facility] Work Phone: Start: 04-17-2023 Non-patient / Non-visit Dr. Chen Work Phone: [facility] Work Phone: Start: 04-16-2023 Non-patient / Non-visit Dr. Chen Work Phone: [facility] Work Phone: Start: 04-15-2023 Non-patient / Non-visit Dr. Chen Work Phone: [facility] Work Phone: Start: 04-15-2023 Non-patient / Non-visit Dr. Chen Work Phone: [facility] Start: 04-14-2023 Non-patient / Non-visit Dr. Chen Work Phone: [facility] Work Phone: Start: 04-13-2023 Non-patient / Non-visit Dr. Chen Work Phone: [facility] Work Phone: Start: 04-13-2023 Non-patient / Non-visit Dr. Chen Work Phone: [facility] Start: 04-12-2023 Non-patient / Non-visit Dr. Chen Work Phone: [facility] Start: 04-12-2023 End: 04-18-2023 Evaluation and management of inpatient [facility] Work Phone: Start: 02-28-2023 End: 03-04-2023 ambulatory ANGELA MERA MD Facility:B Start: 02-28-2023 End: 03-04-2023 Outreach Lab ANGELA MERA MD [facility] Start: 01-12-2022 End: 01-13-2022 ambulatory [facility] Start: 01-12-2022 End: 01-12-2022 Subsequent hospital visit by physician Unlisted Provider [facility] Comment on above: Mild cognitive impai rment of uncertain or unknown etiology Start: 12-19-2021 End: 12-19-2021 ambulatory [facility] Start: 12-15-2021 End: 12-16-2021 ambulatory [facility] Start: 12-15-2021 End: 12-15-2021 Subsequent hospital visit by physician tal [facility] Comment on above: Non-pressure chronic ulcer of other part of right lower leg with fat layer exposed; PAD (peripheral artery disease) Start: 12-06-2021 End: 12-06-2021 ambulatory KIARRA TRONCOSO [facility] Start: 12-05-2021 End: 12-05-2021 Subsequent hospital visit by physician Darin Quijano DO Work Phone: [facility] Start: 12-05-2021 End: 12-05-2021 ambulatory KIARRA TRONCOSO [facility] Start: 11-23-2021 End: 11-23-2021 ambulatory DARION Buck BASS [facility] Start: 09-30-2021 End: 10-01-2021 ambulatory [facility] Start: 09-30-2021 End: 09-30-2021 Subsequent hospital visit by physician Darin Quijano DO Work Phone: [facility] Start: 09-30-2021 End: 09-30-2021 ambulatory [facility] Start: 09-30-2021 Encounter for other specified special examinations YONY ALMARAZ [facility] Start: 05-31-2021 ambulatory [facility] Start: 04-19-2021 End: 04-19-2021 Office outpatient visit 25 minutes Rosa Khan MD Work Phone: [facility] Comment on above: Atherosclerosis of n 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 (Primary Dx); Essential (primary) hypertension; Mixed hyperlipidemia Start: 02-09-2021 End: 02-09-2021 [facility] Start: 02-05-2021 End: 02-06-2021 [facility] Start: 02-05-2021 End: 02-05-2021 Subsequent hospital visit by physician Yojana Brooks MD Work Phone: [facility] Start: 02-05-2021 End: 02-05-2021 ambulatory [facility] Start: 03-23-2020 End: 03-23-2020 Subsequent hospital visit by physician Jarrell Gray [facility] Comment on above: Benign prostatic hyp erplasia with weak urinary stream Kidney stone Start: 11-03-2019 End: 11-03-2019 Subsequent hospital visit by physician Lilly Philippe Work Phone: [facility] Comment on above: Chronic gout of righ t foot, unspecified cause Start: 08-25-2019 End: 08-25-2019 Subsequent hospital visit by physician Unspecified Provider [facility] Comment on above: Screening for endocr ine, metabolic and immunity disorder Start: 08-20-2019 End: 08-20-2019 Subsequent hospital visit by physician Lilly Philippe Work Phone: [facility] Comment on above: Benign prostatic hyp erplasia with weak urinary stream Start: 05-06-2019 End: 05-06-2019 Refill Levi Ramos, [facility] Start: 03-21-2019 End: 03-21-2019 Subsequent hospital visit by physician Ginny Hylton Work Phone: [facility] Comment on above: Microscopic hematuri a Microscopic hematuri a (Primary Dx); Kidney stone; Microhematuria Start: 03-18-2019 End: 03-18-2019 Orders Only Levi Ramos, [facility] Comment on above: Screening for endocr ine, metabolic and immunity disorder (Primary Dx) Start: 03-03-2019 End: 03-03-2019 Subsequent hospital visit by physician Ginny Hylton Work Phone: [facility] Comment on above: Microhematuria; Abnormal urinalysis Start: 02-25-2019 End: 02-25-2019 Subsequent hospital visit by physician Tay Solis Work Phone: [facility] Comment on above: BPH without obstruct ion/lower urinary tract symptoms Kidney stone; Bladder stones Start: 02-19-2019 End: 02-19-2019 Subsequent hospital visit by physician Ben Simental Work Phone: [facility] Comment on above: History of colon vivian yps; History of colon polyps Start: 02-18-2019 End: 02-18-2019 Telephone encounter Ben Simental Work Phone: [facility] Comment on above: Information or Advic e only Procedures Date Procedure Procedure Detail Performing Clinician Start: 10-19-2024 Urnls dip stick/tabl et reagent auto microscopy Dr. Angela Mera MD Work Phone: Start: 10-19-[address] Angela Mera MD Work Phone: Start: 10-19-2024 CT of abdomen and pe lvis without contrast Dr. Angela Mera MD Work Phone: Start: 04-18-[address] Angela [...] Radiologic exam abdo men 1 view Jarrell Gary Start: 03-23-2020 Assay of prostate specific antigen total Jarrell Gray Start: 11-03-2019 Assay of blood/uric acid Lilly Philippe Work Phone: Start: 10-20-2019 Adult depression screening assessment Lilly Philippe Start: 08-25-2019 Assay of thyroid stimulating hormone tsh Lilly Philippe Work Phone: Start: 08-25-2019 CBC WITH DIFFERENTIAL C atherine Cong Philippe Work Phone: Start: 08-25-2019 Comprehensive metabo [...] Treatment Date Care Activity Detail Author Start: 10-19-2024 [facility] Start: 08-24-2024 Fasting lipid profile LIPID SCREENIN G [facility] Start: 02-20-2024 Screening colonoscopy [facility] Start: 02-20-2024 Screening for malign ant neoplasm of colon COLONOSCOPY HIGH RISK (5 YEAR) [facility] Start: 11-20-2023 Fasting lipid profile LIPID SCREENIN G [facility] Start: 04-18-2023 Patient discharge [facility] Start: 04-18-2023 [facility] [facility] Start: 04-18-2023 [facility] Start: 04-16-2023 [facility] Start: 04-15-2023 Application of intermittent pneumatic compression device [facility] Start: 04-13-2023 Referral to worm grower [facility] Start: 04-12-2023 Respiratory secretio n precautions [facility] Start: 04-12-2023 Bacteria identified in Blood by Culture Blood Culture [facility] Start: 04-12-2023 Following clinical pathway protocol [facility] Start: 04-12-2023 Assessment of risk o f venous thromboembolism [facility] Start: 04-12-2023 Insertion of cathete r into peripheral vein [facility] Start: 04-12-2023 Measuring intake and output [facility] Start: 04-12-2023 Providing care accor ding to standard [facility] Start: 04-12-2023 Provision of activit y privileges [facility] Start: 04-12-2023 Referral to distilling department supervisor [facility] Start: 04-12-2023 Referral to occupati onal therapist [facility] Start: 04-12-2023 Referral to service [facility] Start: 04-12-2023 Tobacco use cessatio n education [facility] Start: 04-12-2023 [facility] Start: 04-12-2023 Partial thromboplast in time, activated [facility] Start: 04-12-2023 Prothrombin time [facility] Start: 04-12-2023 Admission procedure [facility] Start: 04-12-2023 Hospital admission, emergency, from emergency room, medical nature [facility] Start: 04-12-2023 End: 04-12-2023 Blood culture [facility] Start: 04-12-2023 Patient referral to dietitian [facility] Start: 04-19-2022 End: 04-19-2022 Patient encounter procedure 04/19/2022 Office Visit Cardiology Dannielle Hartmann MD [address] [place] [address] [facility] Start: 12-19-2021 End: 12-19-2021 Patient encounter procedure 12/19/2021 Office Visit Vascular Surgery Darion Bass, DO [address] [place] [address] [facility] Start: 11-17-2021 Influenza vaccination Influenza Vacc ine (#1) [facility] Start: 11-17-2021 Influenza vaccinatio n given INFLUENZA VACCINE (#1) [facility] Start: 09-16-2021 Glaucoma screening GLAUCOMA/EY E EXAM AGE 65+ [facility] Start: 03-30-2021 End: 03-30-2021 Patient encounter procedure 03/30/2021 Office Visit Urology Tay Solis APRN JUDO TEACHER [address] [address] [facility] Start: 03-10-2021 COVID-19 Vaccine (3 - Booster for Moderna series) COVID-19 Vaccine (3 - Booster for Moderna series) [facility] Start: 02-22-2021 Uric acid measurement URIC ACID [facility] Start: 02-08-2021 COVID-19 Vaccine (3 - Booster for Moderna series) COVID-19 Vaccine (3 - Booster for Moderna series) [facility] Start: 11-17-2020 Influenza vaccination Influenza Vacc ine (#1) [facility] Start: 11-17-2020 Influenza vaccinatio n given INFLUENZA VACCINE (#1) [facility] Start: 10-20-2020 ANNUAL WELLNESS VISIT ANNUAL WELLNES S VISIT [facility] Start: 10-19-2020 Adult depression screening assessment DEPRESSION SCREENING [facility] Start: 10-19-2020 Fall risk assessment FALL RISK [facility] Start: 10-19-2020 End: 10-19-2020 Office Visit 10/19/2020 Office Visit Family Medicine Kiarra Ramos DO [address] [place] [address] [phone] Dr Kiarra Ramos, Family Practice Start: 09-08-2020 COVID-19 VACCINE (2 - Moderna 3-dose booster series) COVID-19 VACCINE (2 - Moderna 3-dose booster series) [facility] Start: 09-08-2020 COVID-19 VACCINE (2 - Moderna 3-dose series) COVID-19 VACCINE (2 - Moderna 3-dose series) [facility] Start: 09-08-2020 COVID-19 VACCINE (2 - Moderna series) COVID-19 VACCINE (2 - Moderna series) [facility] Start: 09-06-2020 End: 09-06-2020 Office Visit 09/06/2020 Office Visit [facility] Kiarra Ramos DO [address] [place] [address] [phone] Dr Kiarra Ramos, Family Practice Start: 09-01-2020 End: 09-01-2020 Clinical Support 09/01/2020 Clinical Support [facility], [facility] [address] [place] [address] Dr Kiarra Ramos, [facility] Start: 03-29-2020 End: 03-29-2020 Office Visit 03/29/2020 Office Visit Urology Ginny Hylton, GUERRERO [address] [address] [phone] [facility] Start: 03-01-2020 End: 03-01-2020 Office Visit 03/01/2020 Office Visit [facility] Kiarra Ramos DO [address] [place] [address] Dr Kiarra Ramos, Family Practice Start: 02-23-2020 End: 02-23-2020 Clinical Support 02/23/2020 Clinical Support [facility], [facility] [address] [place] [address] Dr Kiarra Ramos, Family Practice Start: 11-18-2019 Influenza vaccinatio n [facility] Start: 09-03-2019 End: 09-03-2019 Office Visit 09/03/2019 Office Visit Family Kiarra Walker DO [address] [place] [address] Dr Kiarra Ramos, [facility] Start: 06-17-2019 End: 06-17-2019 Office Visit 06/17/2019 Office Visit Family Kiarra Walker DO [address] [place] [address] [phone] Dr Kiarra Ramos, [facility] Start: 06-09-2019 End: 04-18-2020 CBC with Differential CBC with Differential Lab Routine Screening for endocrine, metabolic and immunity disorder Expected: 06/09/2019 (Approximate), Expires: 04/18/2020 [facility] Comment on above: Expected: 06/09/2019 (Approximate), Expires: 04/18/2020 Start: 06-09-2019 End: 04-18-2020 Comprehensive metabolic panel aka [facility] Comprehensive metabolic panel aka [facility] Lab Routine Screening for endocrine, metabolic and immunity disorder Expected: 06/09/2019, Expires: 04/18/2020 [facility] Comment on above: Expected: 06/09/2019 , Expires: 04/18/2020 Start: 06-09-2019 End: 04-18-2020 Lipid panel Lipid panel Lab Routine Screening for endocrine, metabolic and immunity disorder Expected: 06/09/2019 (Approximate), Expires: 04/18/2020 [facility] Comment on above: Expected: 06/09/2019 (Approximate), Expires: 04/18/2020 Start: 06-09-2019 End: 04-18-2020 TSH Qn TSH Lab Routine Screening for endocrine, metabolic and immunity disorder Expected: 06/09/2019 (Approximate), Expires: 04/18/2020 [facility] Comment on above: Expected: 06/09/2019 (Approximate), Expires: 04/18/2020 Start: 03-28-2019 End: 03-28-2019 Procedure visit 03/28/2019 Procedure visit Urology Jarrell Gray MD [address] [place] [address] [place] [address] [phone] [facility] Start: 03-21-2019 End: 03-21-2019 Appointment 03/21/2019 Appointment Radiology Ginny Hylton APRN CNP [address] [place] [address] [address] [place] [address] [phone] [facility] Start: 03-18-2019 End: 03-18-2019 Office Visit 03/18/2019 Office Visit Family Medicine Lilly Philippe, ENT CONSULTANT JUDO TEACHER [address] [place] [address] [phone] Dr Kiarra Ramos, Family Practice Start: 03-03-2019 End: 03-03-2019 Office Visit 03/03/2019 Office Visit Urology Solis GinnyGUERRERO JUDO TEACHER [address] [address] [phone] [facility] Start: 12-13-2018 COLONOSCOPY 3YRS HIG H RISK COLONOSCOPY 3YRS HIGH RISK [facility] Start: 11-17-2018 Influenza vaccinatio n given INFLUENZA VACCINE (#1) [facility] Start: 05-30-2017 Uric acid measurement URIC ACID [facility] Start: 02-28-2014 Pneumococcal Vaccine : 65+ Years (2 - PCV) Pneumococcal Vaccine: 65+ Years (2 - PCV) [facility] Start: 2010 Fall risk assessment FALL RISK [facility] Start: 2010 Glaucoma screening GLAUCOMA/EY E EXAM AGE 65+ [facility] Start: 2010 Pneumococcal 23-mecca nt polysaccharide vaccination given (situation) PNEUMONIA VACCINE (PCV13 PPSV23) (1 - PCV) [facility] Start: 2010 Pneumococcal polysaccharide vaccine (product) PNEUMONIA VACCINE (PCV13 PPSV23) (1 of 2 - PCV13) [facility] Start: 09-16-2008 DTaP/Tdap/Td Vaccine s (2 - Td or Tdap) DTaP/Tdap/Td Vaccines (2 - Td or Tdap) [facility] Start: 2005 Varicella-zoster vac cine (product) ADULT VZV VACCINE [facility] Start: 1995 SHINGLES VACCINE (1 of 2) VENTURA GLES VACCINE (1 of 2) [facility] Start: 1995 Zoster vaccine hzv l mark for subcutaneous use ZOSTER (SHINGLES) VACCINE (1 of 2) [facility] Start: 1995 Zoster Vaccines (1 of 2) Zoster Vacc lyndsay (1 of 2) [facility] Start: 1966 Tetanus, diphtheria and acellular pertussis vaccination TDAP/TD ADULT [facility] Start: 1963 ANNUAL WELLNESS VISIT ANNUAL WELLNES S VISIT [facility] Start: 1963 WELLNESS ANNUAL VISIT WELLNESS ANNUA L VISIT [facility] Start: 1957 Adult depression screening assessment [facility] Start: 1957 Depression screening using PHQ-9 (Patient Health Questionnaire 9) score DEPRESSION SCREENING [facility] Start: 01-04-1956 Administration of diphtheria + tetanus + acellular pertussis vaccine DTAP/TDAP/TD VACCINE (1 - Tdap) [facility] Start: 01-04-1956 Diphtheria + pertuss is + tetanus vaccine (product) DTAP/TDAP/TD VACCINE (1 - Tdap) [facility] Start: 1945 Hepatitis C screening HEPATITIS C SC REENING [facility] Start: 1945 Lipid panel Lipid Panel [facility] Bilirubin measuremen t, urine [facility] End: 03-21-2019 CT Abdomen WO and W contrast IV CT Abdomen Pelvis With and Without IV Contrast Imaging Routine Kidney stone Microhematuria 1 Occurrences starting 03/21/2019 until 03/21/2019 [facility] Comment on above: 1 Occurrences starti ng 03/21/2019 until 03/21/2019 CT Abdomen WO and W contrast IV CT Abdomen Pelvis With and Without IV Contrast Imaging Routine Kidney stone Microhematuria 03/21/2019 10:22 AM EST [facility] ECG 12 Lead - In Clinic ECG 12 L ead - In Clinic ECG Routine Essential (primary) hypertension Ordered: 04/19/2021 [facility] Work Phone: Comment on above: Ordered: 04/19/2021 Hemoglobin [Presence ] in Urine [facility] Hemoglobin A1c/Hemoglobin.total in Blood [facility] Hepatic function panel [facility] INR in Blood by Coagulation assay [facility] Lipid 1996 panel - S yuki or Plasma [facility] Measurement of keton es in urine using dipstick [facility] Microscopic urinalysis [facility] End: 01-12-2022 MR Brain WO contrast [facility] Comment on above: 1 Occurrences starti ng 01/12/2022 until 01/12/2022 NM Heart Views W str ess and W radionuclide IV [facility] Oxygen Therapy Nasal Cannula; Liters Per Minute: 2.0 LPM; RT may modify oxygen administration per policy: Yes During procedure Oxygen Therapy Nasal Cannula; Liters Per Minute: 2.0 LPM; RT may modify oxygen administration per policy: Yes During procedure Respiratory Care Routine Continuous until discontinued starting 02/19/2019 Yasmani Audiotoniq [facility] Comment on above: Continuous until dis continued starting 02/19/2019 Patient referral [facility] Work Phone: pH of Urine [facility] POCT glucose for medication controlled diabetic patient POCT glucose for medication controlled diabetic patient Lab Routine ONE TIME for 1 Occurrences starting 02/19/2019 [facility] Comment on above: ONE TIME for 1 Occur rences starting 02/19/2019 Pulse oximetry, continuous Pulse oximetry, continuous Respiratory Care Routine Continuous until discontinued starting 02/19/2019 [facility]man[facility] [address] Comment on above: Continuous until dis continued starting 02/19/2019 End: 02-05-2021 SARS-COV-2, qPCR ([facility]) [facility] Work Phone: Comment on above: One Time for 1 Occur rences starting 02/05/2021 until 02/05/2021 End: 09-30-2021 SARS-COV-2, TMA [facility] Work Phone: Comment on above: One Time for 1 Occur rences starting 09/30/2021 until 09/30/2021 Specific gravity of Urine [facility] End: 02-19-2019 Surgical Pathology Exam Surgical Pathology Exam Lab Routine One Time for 1 Occurrences starting 02/19/2019 until 02/19/2019 [facility] Comment on above: One Time for 1 Occur rences starting 02/19/2019 until 02/19/2019 Urinalysis, blood, qualitative [facility] End: 03-03-2019 Urine culture and sensitivity Urine culture and sensitivity Microbiology Routine Microhematuria Abnormal urinalysis 1 Occurrences starting 03/03/2019 until 03/03/2019 [facility] Comment on above: 1 Occurrences starti ng 03/03/2019 until 03/03/2019 Urine culture and sensitivity Urine culture and sensitivity Microbiology Routine Microhematuria Abnormal urinalysis 03/03/2019 1:30 PM EST [facility] Urine dipstick for glucose [facility] Urine dipstick for leukocyte esterase [facility] Urine dipstick for nitrite [facility] Urine dipstick for protein [facility] Urine examination [facility] Urine microscopy: epithelial cells [facility] Urine Microscopy: wh ite cells [facility] Urobilinogen [Presen ce] in Urine [facility] End: 12-15-2021 VAS ANKLE BRACHIAL INDEX [place] [employer] Work Phone: Comment on above: Once for 1 Occurrenc es starting 12/15/2021 until 12/15/2021 Immunizations Immunization Date Immunization Notes Care Provider Fa cility 06-10-2024 Pneumococcal conjuga te PCV20, polysaccharide [id number] conjugate, adjuvant, PF; Translations: [Prevnar 20] ANGELA MERA MD [facility] 03-05-2024 tetanus toxoid, redu larry diphtheria toxoid, and acellular pertussis vaccine, adsorbed ANGELA MERA MD [facility] 02-25-2024 RSV vaccine preF3, recombinant ANGELA MERA MD [facility] 01-25-2024 influenza, high dose seasonal, preservative-free; Translations: [Fluad PF Prefilled Syringe ] ANGELA MERA MD [facility] 09-08-2020 SARS-CoV-2 (COVID-19 ) mRNA-1273 vaccine ANGELA MERA MD [facility] Comment on above: Result Comment: 2022: 75 08-11-2020 SARS-CoV-2 (COVID-19 ) mRNA-1273 vaccine ANGELA MERA MD [facility] Comment on above: Result Comment: 2022: 75 02-28-2013 influenza virus vacc ine, unspecified formulation Rosa Khan MD Work Phone: [facility] Payers Date Payer Category Payer Medicare [id number] 2024 Private Health Insurance [id number] 2024 Unknown [id number] 2023 Self-pay 2023 Unknown [id number] 2023 Unknown [id number] 2023 Unknown [id number] 2021 Medicare [id number] 2017 Medicare [id number] 2017 Medicare AETNA MEDICARE A DVANTAGE AETNA MEDICARE ADVANTAGE PPO [id number] 2017-Present [phone] [address] [place] [address] Medicare [id number]. [id number] 2017 Medicare [id number]. 1.13.248.2. [id number] 1945 Unknown [id number] 2.16840.1.223358.3.579.2. 297 1945 Unknown [id number] 2.840.1.272248.3.579.2. 297 1945 Unknown [id number] 2.16840.1.808042.3.579.2. 297 1945 Unknown [id number] 2.16840.1.382712.3.579.2. 297 1945 Unknown [id number] 2.16840.1.339365.3.579.2. 297 1945 Unknown [id number] 2.16.840.1.141121.3.579.2. 297 1945 Unknown [id number] 2.16.840.1.700183.3.579.2. 297 1945 Unknown [id number] 2.16.840.1.942445.3.579.2. 297 1945 Unknown [id number] 2.16.840.1.230595.3.579.2. 297 1945 Unknown [id number] 2.16.840.1.821423.3.579.2. 627 1945 Unknown [id number] 2.16.840.1.791339.3.579.2. 627 1945 Unknown [id number] 2.16.840.1.394567.3.579.2. 627 1945 Unknown [id number] 2.16.840.1.567578.3.579.2. 627 1945 Unknown [id number] 2.16.840.1.743911.3.579.2. 627 1945 Unknown [id number] 2.16.840.1.098138.3.579.2. 627 1945 Unknown [id number] 2.16.840.1.996453.3.579.2. 627 1945 Unknown [id number] 2.16.840.1.448101.3.579.2. 627 1945 Unknown [id number] 2.16.840.1.112918.3.579.2. 627 1945 Unknown [id number] 2.16.840.1.067418.3.579.2. 627 1945 Unknown [id number] 2.16.840.1.251142.3.579.2. 627 1945 Unknown [id number] 2.16.840.1.609973.3.579.2. 627 1945 Unknown [id number] 2.16.840.1.166560.3.579.2. 627 1945 Unknown [id number] 2.16.840.1.419922.3.579.2. 627 1945 Unknown [id number] 2.16.840.1.313034.3.579.2. 627 1945 Unknown [id number] 2.16.840.1.265760.3.579.2. 627 1945 Unknown [id number] 2.16840.1.568519.3.579.2. 627 Medicare [id number] Medicare [id number] Unknown [id number] 2.16.840.1.766641.3.579.2. 462 Unknown [id number] 2.16840.1.818309.3.579.2. 462 Unknown [id number] 2.16840.1.902153.3.579.2. 462 Unknown [id number] 2.16840.1.828721.3.579.2. 462 Unknown [id number] 2.16840.1.139566.3.579.2. 462 Social History Date Type Detail Facility Start: 02-19-2019 End: 09-12-2024 Tobacco smoking status NHIS Never smoker [facility] Start: 02-19-2019 End: 02-09-2021 Alcohol intake Current non-drinker of alcohol (finding) [facility] Start: 1945 Sex Assigned At Not on file [facility] Start: 03-18-2019 End: 10-31-2019 Tobacco use and exposure Never used [facility] Start: 04-19-2021 End: 11-23-2021 Alcohol intake Lifetime non-drinker (finding) [facility] Start: 04-19-2021 History SDOH Alcohol Frequency 1 [facility] Start: 12-05-2021 End: 12-15-2021 Exposure to SARS-CoV-2 (event) Not sure [facility] Start: 1945 Sex Assigned At Male A [facility] Start: 04-12-2023 End: 05-22-2023 Tobacco smoking status NHIS Unknown if ever smoked [facility] Sexual Orientation [facility] Sex Male (finding) [facility] Goals Date Patient Goal Desired Activity /State Functional Status Date Assessment Result Facility 04-18-2023 Functional status Chair [facility] Work Phone: Mental Status Date Assessment Result Facility 04-18-2023 Cognitive function Voice/Name [facility] Work Phone: 04-12-2023 Cognitive function Level Of Cons ciousness Awake;Appropriate;Lethargic [facility] Work Phone: Clinical Notes 04-19-2021 to 11-03-2024 Note Date & Type Note Facility 11-03-2024 Note . MICRO - Microbiology PROCEDURE: Blood Culture (bacterial) [*1] SOURCE: Blood BODY SITE: Arm R COLLECTED DATE/TIME: 10/29/2024 14:18 EDT RECEIVED DATE/TIME: 10/29/2024 14:45 EDT START DATE/TIME: 10/29/2024 14:45 EDT FREE TEXT SOURCE: FINAL REPORTS Final Report [] Verified Date/Time/Personnel: 11/03/2024 14:59 EDT Blood Culture: No Growth at 5 days. PRELIMINARY REPORTS Preliminary Report [] Verified Date/Time/Personnel: 10/29/2024 15:59 EDT Culture has been received in lab and is no growth to date. Routine cultures are held for 5 days. Performing Locations *1: This test was performed at: [facility], [address] [place] [address], [id number] , [facility] 11-03-2024 Note . MICRO - Microbiology PROCEDURE: Blood Culture (bacterial) [*1] SOURCE: Blood BODY SITE: Anticubital, Left COLLECTED DATE/TIME: 10/29/2024 14:18 EDT RECEIVED DATE/TIME: 10/29/2024 14:45 EDT START DATE/TIME: 10/29/2024 14:45 EDT FREE TEXT SOURCE: FINAL REPORTS Final Report [] Verified Date/Time/Personnel: 11/03/2024 14:59 EDT Blood Culture: No Growth at 5 days. PRELIMINARY REPORTS Preliminary Report [] Verified Date/Time/Personnel: 10/29/2024 15:59 EDT Culture has been received in lab and is no growth to date. Routine cultures are held for 5 days. Performing Locations *1: This test was performed at: [address], [facility] , [facility] 10-31-2024 Note . MICRO - Microbiology PROCEDURE: Blood Culture (bacterial) [*1] SOURCE: Blood BODY SITE: COLLECTED DATE/TIME: 10/27/2024 14:28 EDT RECEIVED DATE/TIME: 10/27/2024 14:58 EDT START DATE/TIME: 10/27/2024 14:58 EDT FREE TEXT SOURCE: FINAL REPORTS Final Report [] Verified Date/Time/Personnel: 10/31/2024 13:46 EDT Zulema albicans Isolated from aerobe bottle only. Refer to previous culture for susceptibility. [id number] collected on 10-27-24 PRELIMINARY REPORTS Preliminary Report [] Verified Date/Time/Personnel: 10/31/2024 11:07 EDT Zulema albicans Isolated from aerobe bottle only. Final report to follow. Preliminary Report [] Verified Date/Time/Personnel: 10/27/2024 15:59 EDT Culture has been received in lab and is no growth to date. Routine cultures are held for 5 days. STAINS GSAER [] Verified Date/Time/Personnel: 10/29/2024 15:39 EDT Yeast SUSCEPTIBILITY RESULTS Zulema albicans Antibiotic AZAEL Dilut AZAEL Inter ID Panel Not Not Applicable Applicable Performing Locations *1: This test was performed at: [address], [facility]- , [facility] 10-31-2024 Note . MICRO - Microbiology PROCEDURE: Blood Culture (bacterial) [*1] SOURCE: Blood BODY SITE: COLLECTED DATE/TIME: 10/27/2024 14:26 EDT RECEIVED DATE/TIME: 10/27/2024 14:58 EDT START DATE/TIME: 10/27/2024 14:58 EDT FREE TEXT SOURCE: FINAL REPORTS Final Report [] Verified Date/Time/Personnel: 10/31/2024 13:46 EDT Zulema albicans Isolated from aerobe bottle only. PRELIMINARY REPORTS Preliminary Report [] Verified Date/Time/Personnel: 10/30/2024 09:17 EDT Zulema albicans Isolated from aerobe bottle only. AZAEL to follow Preliminary Report [] Verified Date/Time/Personnel: 10/27/2024 15:59 EDT Culture has been received in lab and is no growth to date. Routine cultures are held for 5 days. STAINS GSAER [] Verified Date/Time/Personnel: 10/29/2024 01:31 EDT Yeast SUSCEPTIBILITY RESULTS Zulema albicans Antibiotic AZAEL Dilut AZAEL Inter Caspofungin 0.03 Susceptible Fluconazole 2 Susceptible ID Panel Not Not Applicable Applicable Micafungin 0.015 Susceptible Voriconazole 0.06 Susceptible Performing Locations *1: This test was performed at: [facility], [address] [place] [address], [facility] , [facility] 10-31-2024 Note . MICRO - Microbiology PROCEDURE: Urine Culture [*1] SOURCE: Urine, Kim Catheter BODY SITE: COLLECTED DATE/TIME: 10/28/2024 23:14 EDT RECEIVED DATE/TIME: 10/29/2024 07:39 EDT START DATE/TIME: 10/29/2024 07:39 EDT FREE TEXT SOURCE: Send for fungal culture FINAL REPORTS Final Report [] Verified Date/Time/Personnel: 10/31/2024 08:22 EDT 4,000 cfu/ml Zulema albicans Contact Microbiology within 72 hours if further identification is indicated ([id number]). [place] counts from a single urine are equivocal in determining infection vs. colonization of yeast. Multiple cultures at least 24 hours apart may be helpful in differentiating colonization from infection. PRELIMINARY REPORTS Preliminary Report [] Verified Date/Time/Personnel: 10/30/2024 14:30 EDT Culture results pending. Preliminary Report [] Verified Date/Time/Personnel: 10/29/2024 08:59 EDT Specimen received in lab. SUSCEPTIBILITY RESULTS Zulema albicans Antibiotic AZAEL Dilut AZAEL Inter ID Panel Not Not Applicable Applicable Performing Locations *1: This test was performed at: [address], [facility] , [facility] 10-29-2024 Note . MICRO - Microbiology PROCEDURE: Urine Culture [*1] SOURCE: Urine, Clean Catch BODY SITE: COLLECTED DATE/TIME: 10/27/2024 13:37 EDT RECEIVED DATE/TIME: 10/27/2024 14:41 EDT START DATE/TIME: 10/27/2024 14:42 EDT FREE TEXT SOURCE: FINAL REPORTS Final Report [] Verified Date/Time/Personnel: 10/29/2024 07:35 EDT <10,000 cfu/ml. No Significant growth. Sensitivity not indicated. PRELIMINARY REPORTS Preliminary Report [] Verified Date/Time/Personnel: 10/28/2024 08:29 EDT No growth to date Preliminary Report [] Verified Date/Time/Personnel: 10/27/2024 15:59 EDT Specimen received in lab. Performing Locations *1: This test was performed at: [address], [facility] , [facility] 10-22-2024 Note . MICRO - Microbiology PROCEDURE: Urine Culture [*1] SOURCE: Urine BODY SITE: Ureter COLLECTED DATE/TIME: 10/20/2024 13:04 EDT RECEIVED DATE/TIME: 10/20/2024 13:31 EDT START DATE/TIME: 10/20/2024 13:32 EDT FREE TEXT SOURCE: urine culture FINAL REPORTS Final Report [] Verified Date/Time/Personnel: 10/22/2024 08:23 EDT No growth at 48 hours. PRELIMINARY REPORTS Preliminary Report [] Verified Date/Time/Personnel: 10/21/2024 08:28 EDT No growth to date Preliminary Report [] Verified Date/Time/Personnel: 10/20/2024 14:59 EDT Specimen received in lab. Performing Locations *1: This test was performed at: [facility], [address] [place] [address], [id number] , [place] [facility] 10-21-2024 Hospital Discharg e instructions Patient Education 10/21/2024 10:54:32 Kidney Stones, Jmoi-ac-Miuz Kidney Stones Kidney stones are rock-like masses that form inside of the kidneys. Kidneys are organs that make pee (urine). A kidney stone may move into other parts of the urinary tract, including: The tubes that connect the kidneys to the bladder (ureters). The bladder. The tube that carries urine out of the body (urethra). Kidney stones can cause very bad pain and can block the flow of pee. The stone usually leaves your body (passes) through your pee. You may need to have a doctor take out the stone. What are the causes? Kidney stones may be caused by: A condition in which certain glands make too much parathyroid hormone (primary hyperparathyroidism). A buildup of a type of crystals in the bladder made of a chemical called uric acid. The body makes uric acid when you eat certain foods. Narrowing (stricture) of one or both of the ureters. A kidney blockage that you were born with. Past surgery on the kidney or the ureters, such as gastric bypass surgery. What increases the risk? You are more likely to develop this condition if: You have had a kidney stone in the past. You have a family history of kidney stones. You do not drink enough water. You eat a diet that is high in protein, salt (sodium), or sugar. You are overweight or very overweight (obese). What are the signs or symptoms? Symptoms of a kidney stone may include: Pain in the side of the belly, right below the ribs (flank pain). Pain usually spreads (radiates) to the groin. Needing to pee often or right away (urgently). Pain when going pee (urinating). Blood in your pee (hematuria). Feeling like you may vomit (nauseous). Vomiting. Fever and chills. How is this treated? Treatment depends on the size, location, and makeup of the kidney stones. The stones will often pass out of the body through peeing. You may need to: Drink more fluid to help pass the stone. In some cases, you may be given fluids through an IV tube put into one of your veins at the hospital. Take medicine for pain. Make changes in your diet to help keep kidney stones from coming back. Sometimes, medical procedures are needed to remove a kidney stone. This may involve: A procedure to break up kidney stones using a beam of light (laser) or shock waves. Surgery to remove the kidney stones. Follow these instructions at home: Medicines Take vvcq-jnt-qlifiug and prescription medicines only as told by your doctor. Ask your doctor if the medicine prescribed to you requires you to avoid driving or using heavy machinery. Eating and drinking Drink enough fluid to keep your pee pale yellow. You may be told to drink at least 8 10 glasses of water each day. This will help you pass the stone. If told by your doctor, change your diet. This may include: ?Limiting how much salt you eat. ?Eating more fruits and vegetables. ?Limiting how much meat, poultry, fish, and eggs you eat. Follow instructions from your doctor about eating or drinking restrictions. General instructions Collect pee samples as told by your doctor. You may need to collect a pee sample: ?24 hours after a stone comes out. ?8 12 weeks after a stone comes out, and every 6 12 months after that. Strain your pee every time you pee (urinate), for as long as told. Use the strainer that your doctor recommends. Do not throw out the stone. Keep it so that it can be tested by your doctor. Keep all follow-up visits as told by your doctor. This is important. You may need follow-up tests. How is this prevented? To prevent another kidney stone: Drink enough fluid to keep your pee pale yellow. This is the best way to prevent kidney stones. Eat healthy foods. Avoid certain foods as told by your doctor. You may be told to eat less protein. Stay at a healthy weight. Where to find more information National Kidney Foundation (NKF): www.kidney.org Urology Care Foundation (UCF): www.urologyhealth.org Contact a doctor if: You have pain that gets worse or does not get better with medicine. Get help right away if: You have a fever or chills. You get very bad pain. You get new pain in your belly (abdomen). You pass out (faint). You cannot pee. Summary Kidney stones are rock-like masses that form inside of the kidneys. Kidney stones can cause very bad pain and can block the flow of pee. The stones will often pass out of the body through peeing. Drink enough fluid to keep your pee pale yellow. This information is not intended to replace advice given to you by your health care provider. Make sure you discuss any questions you have with your health care provider. Document Released: 08/21/2008 Document Revised: 07/22/2019 Document Reviewed: 07/22/2019 [employer] Patient Education 2020 [employer]. Follow Up Care 10/19/2024 11:37:33 With:ANGELA MERA MD Address: [address] [place] [address]- When:1-2 days Comments:Please call the office to schedule a hospital follow up appointment. [facility] 10-21-2024 Note Discharge Instructions Thank you for allowing [facility] to assist you with your healthcare needs. The following is important discharge information regarding your hospital visit. Your Care Team ANGELA MERA MD Your Diagnosis Anxiety Benign essential hypertension Cerumen impaction Hyperuricemia Pansinusitis Urinary incontinence What to do next Instructions From Your Doctor You will receive a call to schedule an appointment with a urologist in 2 weeks. If you don't hear from them, please call [phone] to schedule. Your kidney function is recovering but still needs to be monitored. Please go to any [facility] lab on 10/23 to recheck your blood work. The results will be sent to Dr. Mera. Until you see Dr. Mera, do NOT take these medications: losartan, Jardiance. Your doctor will let you know when it is safe to restart them. If you develop fever, chills, back or abdominal pain, painful urination, significant blood in your urine, or any other new or concerning symptoms, please return to the emergency department right away. Scheduled Follow-Up Appointments Appointment Type When With Where Contact Information StatusPC OV 11/04/2024 01:30 PM EDT ANGELA MERA MD [facility] Confirmed PC OV 12/11/2024 11:00 AM EDT ANGELA MERA MD [facility] Confirmed PC OV 03/06/2025 01:30 PM EST ANGELA MERA MD [facility] Confirmed Follow Up Appointments Follow Up with ANGELA MERA MD When:Within 1-2 days Where:[address] [place] [address]- Additional Information: Please call the office to schedule a hospital follow up appointment. The Following Activity and Diet Have Been Ordered for You Discharge Activity - Ordered -- Resume your pre-hospitalization activity, 10/21/24 10:47:00 EDT Discharge Diet - Ordered -- Type of Diet: Regular, 10/21/24 10:47:00 EDT The Following Equipment Has Been Ordered for You No qualifying data available. The Following Treatments Have Been Ordered for You Discharge Labs Discharge Outpatient Labwork - Ordered -- CBC, BMP, kidney stones, follow-up within: 2-4 days, Results Notify to: ANGELA MERA MD, 10/21/24 10:47:00 EDT Discharge Radiology No qualifying data available. Other Therapies No qualifying data available. Post Acute Orders No qualifying data available. Someone Will Contact You Regarding These Home Health Referrals No home referrals have been ordered for you. No one will call you. Allergies NKA Medications Please ask your primary doctor or pharmacist before taking any other medication not listed, including over the counter drugs, herbal medications, vitamins and or supplements as they may interact with your home medications. What How Much When Why Instructions Last Dose New cefuroxime (cefuroxime 500 mg oral tablet) 1 tab(s) by mouth Two (2) times a day Duration: 4 Days Begin on morning of 10/22 Pickup at [facility] Unchanged acetaminophen (Tylenol 8 HR Arthritis Pain 650 mg oral tablet, extended release) 2 tab(s) by mouth Every 8 hours as needed for as needed for pain Unchanged allopurinol (allopurinol 300 mg oral tablet) 1 tab(s) by mouth Once a day Unchanged aspirin (aspirin 81 mg oral delayed release tablet) 1 tab(s) by mouth Every day Unchanged atorvastatin (atorvastatin 20 mg oral tablet) 1 tab(s) by mouth Once a day Pansinusitis Hyperuricemia Unchanged benzonatate (benzonatate 100 mg oral capsule) 1 cap by mouth Every 8 hours as needed for as needed for cough Unchanged busPIRone (busPIRone 7.5 mg oral tablet) 1 tab(s) by mouth Two (2) times a day Anxiety Unchanged donepezil (donepezil 10 mg oral tablet) 1 tab(s) by mouth Daily at bedtime Duration: 90 Days Unchanged fluticasone-vilanterol (Breo Ellipta 100 mcg-25 mcg/ inh inhalation powder) 1 puff(s) by inhalation Every day Duration: 30 Days Unchanged herbal/ nutritional product (garlic oral capsule) Unchanged latanoprost ophthalmic (latanoprost 0.005% ophthalmic solution) 1 Drops Both eyes Daily at bedtime Unchanged memantine (memantine 5 mg oral tablet) 1 tab(s) by mouth Two (2) times a day Unchanged metoprolol (Metoprolol Tartrate 25 mg oral tablet) 1 tab(s) by mouth Two (2) times a day Benign essential hypertension Hyperuricemia Unchanged multivitamin (Vitamin B Complex 100) See instructions Unchanged omega-3 polyunsaturated fatty acids (Fish Oil 1000 mg oral capsule) 1 cap by mouth Two (2) times a day Unchanged tamsulosin (tamsulosin 0.4 mg oral capsule) 1 cap by mouth Once a day Cerumen impaction Urinary incontinence Unchanged timolol ophthalmic (timolol (as maleate) 0.5% ophthalmic solution) 1 Drops Both eyes Two (2) times a day Pharmacy Information [facility]: [address] [place], [place] [id number] [phone] What How Much When Comments Stop Taking empagliflozin (Jardiance 10 mg oral tablet) 1 tab(s) by mouth Once a day (in the morning) Stop Taking losartan (losartan 25 mg oral tablet) 1 tab(s) by mouth Once a day Please take this list to your next doctor s visit. Bring all medications you take, including over the counter medications, herbals and other supplements with you to your doctor s visit. Patients and families are reminded to discard old lists and to update any records with all medication providers or retail pharmacies. Education Materials Kidney Stones Kidney stones are rock-like masses that form inside of the kidneys. Kidneys are organs that make pee (urine). A kidney stone may move into other parts of the urinary tract, including: The tubes that connect the kidneys to the bladder (ureters). The bladder. The tube that carries urine out of the body (urethra). Kidney stones can cause very bad pain and can block the flow of pee. The stone usually leaves your body (passes) through your pee. You may need to have a doctor take out the stone. What are the causes? Kidney stones may be caused by: A condition in which certain glands make too much parathyroid hormone (primary hyperparathyroidism). A buildup of a type of crystals in the bladder made of a chemical called uric acid. The body makes uric acid when you eat certain foods. Narrowing (stricture) of one or both of the ureters. A kidney blockage that you were born with. Past surgery on the kidney or the ureters, such as gastric bypass surgery. What increases the risk? You are more likely to develop this condition if: You have had a kidney stone in the past. You have a family history of kidney stones. You do not drink enough water. You eat a diet that is high in protein, salt (sodium), or sugar. You are overweight or very overweight (obese). What are the signs or symptoms? Symptoms of a kidney stone may include: Pain in the side of the belly, right below the ribs (flank pain). Pain usually spreads (radiates) to the groin. Needing to pee often or right away (urgently). Pain when going pee (urinating). Blood in your pee (hematuria). Feeling like you may vomit (nauseous). Vomiting. Fever and chills. How is this treated? Treatment depends on the size, location, and makeup of the kidney stones. The stones will often pass out of the body through peeing. You may need to: Drink more fluid to help pass the stone. In some cases, you may be given fluids through an IV tube put into one of your veins at the hospital. Take medicine for pain. Make changes in your diet to help keep kidney stones from coming back. Sometimes, medical procedures are needed to remove a kidney stone. This may involve: A procedure to break up kidney stones using a beam of light (laser) or shock waves. Surgery to remove the kidney stones. Follow these instructions at home: Medicines Take pzdw-jsn-exdvhms and prescription medicines only as told by your doctor. Ask your doctor if the medicine prescribed to you requires you to avoid driving or using heavy machinery. Eating and drinking Drink enough fluid to keep your pee pale yellow. You may be told to drink at least 8 10 glasses of water each day. This will help you pass the stone. If told by your doctor, change your diet. This may include: ? Limiting how much salt you eat. ? Eating more fruits and vegetables. ? Limiting how much meat, poultry, fish, and eggs you eat. Follow instructions from your doctor about eating or drinking restrictions. General instructions Collect pee samples as told by your doctor. You may need to collect a pee sample: ? 24 hours after a stone comes out. ? 8 12 weeks after a stone comes out, and every 6 12 months after that. Strain your pee every time you pee (urinate), for as long as told. Use the strainer that your doctor recommends. Do not throw out the stone. Keep it so that it can be tested by your doctor. Keep all follow-up visits as told by your doctor. This is important. You may need follow-up tests. How is this prevented? To prevent another kidney stone: Drink enough fluid to keep your pee pale yellow. This is the best way to prevent kidney stones. Eat healthy foods. Avoid certain foods as told by your doctor. You may be told to eat less protein. Stay at a healthy weight. Where to find more information National Kidney Foundation (NKF): www.kidney.org Urology Care Foundation (UCF): www.urologyhealth.org Contact a doctor if: You have pain that gets worse or does not get better with medicine. Get help right away if: You have a fever or chills. You get very bad pain. You get new pain in your belly (abdomen). You pass out (faint). You cannot pee. Summary Kidney stones are rock-like masses that form inside of the kidneys. Kidney stones can cause very bad pain and can block the flow of pee. The stones will often pass out of the body through peeing. Drink enough fluid to keep your pee pale yellow. This information is not intended to replace advice given to you by your health care provider. Make sure you discuss any questions you have with your health care provider. Document Released: 08/21/2008 Document Revised: 07/22/2019 Document Reviewed: 07/22/2019 Elsevier Patient Education 2020 [employer]. Additional Information VACCINATE! IT SAVES LIVES! Members of the community who have not yet received the COVID-19 vaccine and would like to receive it can visit one of [facility] vaccine clinics. There are many vaccine clinic locations within the [facility]. For locations and available times, please visit https://gettheshot.coronavirus.o nco.gov/. It is important to note that some COVID mobile vaccine clinics are held outdoors and may be canceled in rainy or stormy conditions. To learn more about pediatric vaccinations (ages 5-11), we invite you to visit the [facility] webpage. https://www.[employer].org/p ages/7372-Gjwvq-Yxohzxmryux-Freq abquzr-Pssqi-Aluvphcpq.html To learn more about the COVID-19 vaccine, we invite you to visit the CDC website for a list of frequently asked questions.https://www.cdc.gov/co ronavirus/2019-ncov/vaccines/faq .html [facility] Patient Portal Access Instructions: Stay connected with your healthcare team and access your personal medical information anytime with the [facility] Patient Portal. Please follow the directions below to create your [facility] account: 1.Access the email account you provided upon registration to the hospital/physician office.2.Look for an invitation email from [facility].3.Open the email and access the invitation link: Accept Invitation to [facility].4.Fill in the required painter to create your account. To access your account, visit [facility]. Click the blue button labeled Access Patient Portal and then log in with the username and password that you created in the steps above. You will be able to view your test results, lab results, a summary of your visits, upcoming appointments and more. There is also a convenient messaging option where you can send secure messages to your provider. In addition, you will have the ability to download any documents or summaries to your computer and/or send the information securely to a physician. Remember that your healthcare information is confidential, so carefully consider who you will allow to register on the [facility] Patient Portal for access to your information. You can also access [facility] on the [facility] pat. Simply click on Patient Portal and then log into your account. If you would like to receive a full copy of your medical records, please contact the [facility] Medical Records Department by calling [phone], Sunday through Sunday between 8 a.m. and 4:30 p.m. HOW TO SAFELY DISPOSE OF PRESCRIPTION MEDICATIONS Please use one of the following methods to safely dispose of your unused medications. 1.Use a drug disposal kit: the drug disposal pouch allows you to safely discard your old and unused drugs. Ask your nurse to give you one when you are discharged.2.Visit a local take-back location: Many local pharmacies and police departments have programs that collect old and unwanted prescription drugs. Call your local pharmacy or go to http://Noquo/2L8Rt8n to find one close to you.3.Make use of household items: Use cat litter or old coffee grounds to dispose medications if other options are not available. Mix your drugs with these household products, seal them in an airtight container and throw it into the garbage. Call [facility]: [phone] to be sure your drugs can be disposed of in this way. Some medicines may require a different approach.4.Never flush your medications down the toilet. IF YOU HAVE BEEN PRESCRIBED AN OPIOID FOR PAIN If you have been prescribed an opioid (such as hydrocodone, oxycodone or morphine), it is critical to understand the possible side effects and risks of opioid pain medications. Even when taken as directed, opioids can have several side effects including: Tolerance, meaning you might need to take more of a medication for the same pain relief. Nausea, vomiting and/or constipation. Sleepiness, dizziness, dry mouth, confusion, depression or itching. Physical dependence, meaning you have withdrawal symptoms when a medication is stopped, can develop within a few days. KNOW YOUR RESPONSIBILITIES It is important to know exactly how much and how often to take the opioid pain medications you are prescribed. Never take opioids in higher amounts or more often than prescribed. Do not combine opioids with alcohol or other drugs that cause drowsiness, such as benzodiazepines, also known as benzos, including diazepam and alprazolam, muscle relaxants or sleep aids. Never sell or share prescription opioids. This is illegal. Store opioids in a secure place and out of reach of others (including children, family, friends and visitors). The last page of this document has been signed and retained as a CHART COPY. Signatures Patient Education Materials Kidney Stones, Uxwt-tx-Jffd Medication Leaflets My discharge plan and instructions have been reviewed and explained to me and I,FREDY BOX understand my current condition and have read and understand these discharge instructions. I have received a written copy of the plan/instructions. If I have questions, I am aware that I should contact my doctor. Patient/Promotions Specialist Signature: Date/Time: Relationship to Patient: Witness Name/Signature: Date/Time: [facility] 10-21-2024 Discharge summary Date of Service 10/21/2024 Discharge Diagnosis Right ureteral stones DIAN Primary hypertension Chronic diastolic CHF not in exacerbation history of CAD dementia anxiety gout glaucoma mild thrombocytopenia resolved. Hospital Course Patient is a 79-year-old man who presented to [facility] for right flank pain found to have 2 right obstructing ureteral stones with associated hydronephrosis and DIAN. He was transferred to [facility] hemodynamically stable. WBC of 12, serum creatinine elevated at 2.3 with baseline 1.5. Patient was started on empiric antibiotics. Urology was consulted and patient underwent cystourethroscopy with right ureteral stent placement. He will need follow-up in about 2 weeks for laser lithotripsy stone extraction and stent exchange. Requested urine results from lab in [place]. UA done at that time was negative for nitrites, leuk esterase, WBC, bacteria. Therefore, urine culture was not available. Urine culture repeated at [facility] also showing no growth. However, urologist recommended empiric antibiotic course. Patient will therefore receive 4 additional days antibiotic treatment. Patient had improvement in DIAN from creatinine peak of 2.8 down to 1.94 on day of discharge. Therefore, on discharge losartan and Jardiance were held. Patient was notified to go to outpatient lab for repeat studies in 2 days with follow-up to PCP to restart these medications when appropriate. Patient also to have scheduled follow-up with urology. On day of discharge, patient tolerating regular diet, up and walking, feels well with no further pain. Allergies NKA Procedures cystoscopy with ureteral stent placement Consults Consult to Physician - Ordered -- 10/19/24 20:20:00 EDT, THUAN GUPTA MD, Routine, Obstructing stone Imaging Results and Diagnostics XR Retrograde Pyelogram Result Date: October 20, 2024 Verified By: TIMMY VILLAGOMEZ DO CLINICAL STATEMENT: IMPRESSION: Intraprocedural fluoroscopic spot images as above. See separate procedurereport for more information. Subjective Feels great today, ate normally, walking around room with no dizziness or weakness. No further pain in flank, abdomen. No pain with urination. Physical Exam Vitals and Measurements T: 36.6 C (Oral) TMIN: 36.1 C (Temporal Artery) TMAX: 37.1 C (Oral) HR: 62 (Apical) RR: 16 BP: 110/57 SpO2: 94% Weight Dosing Weight: 88.6 kg (10/19/24) laying in bed, no distress, oriented and talkative RRR Lungs clear abd soft, NT/ND No LE edema Pending Labs and Studies none Code Status Code Status - Ordered -- 10/19/24 20:20:00 EDT, Full Code, Constant Order Admission Date 10/19/2024 Discharge Date 10/21/2024 Patient Instructions You will receive a call to schedule an appointment with a urologist in 2 weeks. If you don't hear from them, please call [phone] to schedule. Your kidney function is recovering but still needs to be monitored. Please go to any [facility] lab on 10/23 to recheck your blood work. The results will be sent to Dr. Mera. Until you see Medications New Prescription cefuroxime (cefuroxime 500 mg oral tablet)1 tab(s) by mouth two (2) times a day for 4 Days. Begin on morning of 10/22. Refills: 0. Unchanged acetaminophen (Tylenol 8 HR Arthritis Pain 650 mg oral tablet, extended release)2 tab(s) by mouth every 8 hours as needed as needed for pain. allopurinol (allopurinol 300 mg oral tablet)1 tab(s) by mouth once a day. Refills: 3. aspirin (aspirin 81 mg oral delayed release tablet)1 tab(s) by mouth every day. atorvastatin (atorvastatin 20 mg oral tablet)1 tab(s) by mouth once a day. Refills: 3. benzonatate (benzonatate 100 mg oral capsule)1 cap by mouth every 8 hours as needed as needed for cough. Refills: 1. busPIRone (busPIRone 7.5 mg oral tablet)1 tab(s) by mouth two (2) times a day. Refills: 3. donepezil (donepezil 10 mg oral tablet)1 tab(s) by mouth daily at bedtime for 90 Days. Refills: 3. fluticasone-vilanterol (Breo Ellipta 100 mcg-25 mcg/inh inhalation powder)1 puff(s) by inhalation every day for 30 Days. Refills: 11. herbal/nutritional product (garlic oral capsule) latanoprost ophthalmic (latanoprost 0.005% ophthalmic solution)1 Drops Both eyes daily at bedtime. memantine (memantine 5 mg oral tablet)1 tab(s) by mouth two (2) times a day. Refills: 0. metoprolol (Metoprolol Tartrate 25 mg oral tablet)1 tab(s) by mouth two (2) times a day. Refills: 11. multivitamin (Vitamin B Complex 100) omega-3 polyunsaturated fatty acids (Fish Oil 1000 mg oral capsule)1 cap by mouth two (2) times a day. tamsulosin (tamsulosin 0.4 mg oral capsule)1 cap by mouth once a day. Refills: 3. timolol ophthalmic (timolol (as maleate) 0.5% ophthalmic solution)1 Drops Both eyes two (2) times a day. Discontinued empagliflozin (Jardiance 10 mg oral tablet)1 tab(s) by mouth once a day (in the morning). Refills: 2. losartan (losartan 25 mg oral tablet)1 tab(s) by mouth once a day. Refills: 1. Follow Up Follow Up with ANGELA MERA MD When:Within 1-2 days Where:[facility] [place] [address]- Additional Information: Please call the office to schedule a hospital follow up appointment. Follow Up Appointments No qualifying data available. Follow Up Labs/Studies Discharge Labs Discharge Outpatient Labwork - Ordered -- CBC, BMP, kidney stones, follow-up within: 2-4 days, Results Notify to: ANGELA MERA MD, 10/21/24 10:47:00 EDT Discharge Studies No Follow-up Studies Discharge Diet Discharge Diet - Ordered -- Type of Diet: Regular, 10/21/24 10:47:00 EDT Discharge Activity Discharge Activity - Ordered -- Resume your pre-hospitalization activity, 10/21/24 10:47:00 EDT Condition on Discharge stable Discharge Disposition home Information Provided To patient and his over the phone Time Spent >30 mins Digitally Signed by SARINA VIVEROS MD on 10/21/2024 10:47 AM [facility] 10-20-2024 Pastoral care Progress note Pastoral Care Note Entered On: 10/20/2024 16:24 EDT Performed On: 10/20/2024 16:00 EDT by Nakul Gómez [facility] Care Spiritual Care Visit Initiated by : Consult/Referral Type of Pastoral Visit : Initial visit Spiritual Care Intervention : Patient Asleep, Left calling card Spiritual Plan of Care : Visit as Requested Pastoral Care Visit Length : 5 minute(s) Naklu Gómez - 10/20/2024 16:24 EDT Digitally Signed by Nakul Gómez on 10/20/2024 04:24 PM [facility] 10-20-2024 Anesthesiology Consult note Patient: FREDY BOX Age: 79 years Sex: Male : 1945 Associated Diagnoses: None Author: DESIRE BECERRIL MD Assessment Postanesthesia assessment Vitals: Vital signs from flowsheet : Vital Signs 10/20/2024 13:31 EDT Heart Rate Monitored 61 bpm Respiratory Rate 16 br/min Systolic Blood Pressure Non-Invasive 137 mmHg Diastolic Blood Pressure Non-Invasive 68 mmHg 10/20/2024 13:13 EDT Heart Rate Monitored 52 bpm LOW Respiratory Rate 16 br/min Systolic Blood Pressure Non-Invasive 137 mmHg Diastolic Blood Pressure Non-Invasive 69 mmHg 10/20/2024 13:09 EDT Heart Rate Monitored 56 bpm LOW 10/20/2024 12:56 EDT Temperature Temporal Artery 36.1 DegC Heart Rate Monitored 61 bpm Respiratory Rate 20 br/min Systolic Blood Pressure Non-Invasive 123 mmHg Diastolic Blood Pressure Non-Invasive 58 mmHg LOW 10/20/2024 12:50 EDT Temperature (Route Not Specified) 36.81 DegC DegC Heart Rate Monitored 48 bpm bpm Respiratory Rate - Anes 20 br/min br/min Systolic Blood Pressure Non-Invasive 93 mmHg mmHg Diastolic Blood Pressure Non-Invasive 47 mmHg mmHg 10/20/2024 12:47 EDT Systolic Blood Pressure Non-Invasive 89 mmHg mmHg Diastolic Blood Pressure Non-Invasive 49 mmHg mmHg 10/20/2024 12:45 EDT Temperature (Route Not Specified) 36.86 DegC DegC Heart Rate Monitored 50 bpm bpm Respiratory Rate - Anes 23 br/min br/min 10/20/2024 12:44 EDT Systolic Blood Pressure Non-Invasive 92 mmHg mmHg Diastolic Blood Pressure Non-Invasive 50 mmHg mmHg 10/20/2024 12:41 EDT Systolic Blood Pressure Non-Invasive 97 mmHg mmHg Diastolic Blood Pressure Non-Invasive 50 mmHg mmHg 10/20/2024 12:40 EDT Temperature (Route Not Specified) 36.92 DegC DegC Heart Rate Monitored 49 bpm bpm Respiratory Rate - Anes 23 br/min br/min 10/20/2024 12:38 EDT Systolic Blood Pressure Non-Invasive 92 mmHg mmHg Diastolic Blood Pressure Non-Invasive 46 mmHg mmHg 10/20/2024 12:35 EDT Temperature (Route Not Specified) 36.97 DegC DegC Heart Rate Monitored 56 bpm bpm Respiratory Rate - Anes 20 br/min br/min Systolic Blood Pressure Non-Invasive 91 mmHg mmHg Diastolic Blood Pressure Non-Invasive 52 mmHg mmHg 10/20/2024 12:32 EDT Systolic Blood Pressure Non-Invasive 98 mmHg mmHg Diastolic Blood Pressure Non-Invasive 49 mmHg mmHg 10/20/2024 12:30 EDT Heart Rate Monitored 57 bpm bpm Respiratory Rate - Anes 21 br/min br/min 10/20/2024 12:29 EDT Systolic Blood Pressure Non-Invasive 106 mmHg mmHg Diastolic Blood Pressure Non-Invasive 57 mmHg mmHg 10/20/2024 12:26 EDT Systolic Blood Pressure Non-Invasive 143 mmHg mmHg Diastolic Blood Pressure Non-Invasive 69 mmHg mmHg 10/20/2024 12:25 EDT Heart Rate Monitored 55 bpm bpm Respiratory Rate - Anes 0 br/min br/min 10/20/2024 12:24 EDT Systolic Blood Pressure Non-Invasive 128 mmHg mmHg Diastolic Blood Pressure Non-Invasive 67 mmHg mmHg 10/20/2024 11:39 EDT Heart Rate Monitored 51 bpm LOW 10/20/2024 11:07 EDT Peripheral Pulse Rate 65 bpm Respiratory Rate 18 br/min 10/20/2024 8:06 EDT Apical Heart Rate 67 bpm 10/20/2024 7:56 EDT Temperature Oral 36.7 DegC Heart Rate Monitored 61 bpm Respiratory Rate 20 br/min Systolic Blood Pressure Non-Invasive 142 mmHg HI Diastolic Blood Pressure Non-Invasive 67 mmHg Reason For Taking VItal Signs Routine 10/20/2024 7:18 EDT Peripheral Pulse Rate 68 bpm Respiratory Rate 18 br/min 10/20/2024 4:16 EDT Temperature Oral 36.8 DegC Peripheral Pulse Rate 53 bpm LOW Respiratory Rate 18 br/min Systolic Blood Pressure Non-Invasive 137 mmHg Diastolic Blood Pressure Non-Invasive 64 mmHg Blood Pressure Method Automatic Blood Pressure Location Left arm Blood Pressure Cuff Size Medium Reason For Taking VItal Signs Routine 10/19/2024 23:20 EDT Temperature Oral 37.1 DegC Peripheral Pulse Rate 57 bpm LOW Respiratory Rate 16 br/min Systolic Blood Pressure Non-Invasive 109 mmHg Diastolic Blood Pressure Non-Invasive 64 mmHg Blood Pressure Method Automatic Blood Pressure Location Right arm Blood Pressure Cuff Size Medium 10/19/2024 22:35 EDT Peripheral Pulse Rate 54 bpm LOW 10/19/2024 22:19 EDT Peripheral Pulse Rate 60 bpm Respiratory Rate 17 br/min 10/19/2024 21:50 EDT Apical Heart Rate Not Done: Bradycardia (Not Done) 10/19/2024 20:00 EDT Temperature Oral 37 DegC Peripheral Pulse Rate 58 bpm LOW Respiratory Rate 18 br/min Systolic Blood Pressure Non-Invasive 126 mmHg Diastolic Blood Pressure Non-Invasive 70 mmHg Blood Pressure Method Automatic Blood Pressure Location Right arm Blood Pressure Cuff Size Medium Reason For Taking VItal Signs Admission . Mental status: at preoperative baseline. Respiratory function: respirations are non-labored, breath sounds are equal, symmetrical expansion. Respiratory support: none. CV function: BP and HR within 20% of pre-op baseline. Cardiovascular support: none. Pain: Post op control see nursing medication documentation. Nausea status: denies nausea, see nursing documentation of medications. Postoperative hydration status: euvolemic. Notes: Patient has sufficiently recovered from anesthesia and has met discharge criteria to leave PACU. Digitally Signed by DESIRE BECERRIL MD on 10/20/2024 01:37 PM [facility] 10-20-2024 Note Exam Date Time Procedure Performing Provider Status 10/20/24 12:54 PM XR Retrograde Pyelogram TIMMY VILLAGOMEZ DO; Auth (Verified) [id number] ORIGINAL EXAMINATION: SPOT FLUOROSCOPIC IMAGES 10/20/2024 12:54 pm TECHNIQUE: Fluoroscopy was provided by the radiology department for procedure. Radiologist was not present during examination. FLUOROSCOPY DOSE AND TYPE: Radiation Exposure Index: Kerma mGy, 2.55 mGy COMPARISON: None HISTORY: ORDERING SYSTEM PROVIDED HISTORY: Reason for Exam: RT KIDNEY STONE Intraprocedural imaging. FINDINGS: Spot intraoperative images are obtained demonstrating performance of right retrograde pyelogram and right stent placement. IMPRESSION: Intraprocedural fluoroscopic spot images as above. See separate procedure report for more information. Interpreted by: Timmy Villagomez DO Preliminary Report By: Timmy Villagomez DO Electronically signed By Timmy Villagomez DO Dictated Date: 10/20/2024 1:52:51 PM Prelim Date: 10/20/2024 1:53:46 PM Sign Date: 10/20/2024 1:53:46 PM Ordering Provider: [facility]08-04-2025 Anesthesiology Consult note Patient: FREDY BOX Age: 79 years Sex: Male : 1945 Associated Diagnoses: None Author: THERESA GAMING DO Preoperative Information Time of last food or liquid consumption: 10/20/2024 00:00:00 Anesthesia history Patient's history: says he woke up during TKA, but didn't have any pain, so he may have had a spinal with sedation, but claims he was asleep. Family's history: negative. Review of Systems Respiratory: asthma, pneumonia 03/2024. Cardiovascular: HTN, CAD, CHF (EF 65%). Gastrointestinal: Nausea. Genitourinary: Negative except as documented in history of present illness. Neurologic: dementia. Health Status Allergies: Allergic Reactions (Selected) NKA, Allergies (1) ActiveSeverityReaction NKANone Documented Current medications: (Selected) Inpatient Medications Ordered Dextrose 50% IV Push: Start: 10/19/24 20:20:00 EDT, Dose = 25 gram(s), = 50 mL, IV Push, AsDirected, PRN, Low blood sugar, 10/19/24 20:20:00 EDT Dilaudid: Start: 10/19/24 20:20:00 EDT, Dose = 0.25 mg, = 0.25 mL, IV Push, q3h, PRN, Pain, scale 4-10, 10/19/24 20:20:00 EDT DuoNeb: Start: 10/19/24 20:20:00 EDT, Dose = 3 mL, Soln, Inhalation, q4hRT, PRN, Shortness of breath or wheezing, 10/19/24 20:20:00 EDT LR 1,000 mL: Start: 10/19/24 20:20:00 EDT, Rate: 75 mL/hr, 10/19/24 20:20:00 EDT Metoprolol Tartrate 25 mg oral tablet: Start: 10/19/24 21:50:00 EDT, Dose = 25 mg, = 1 tab(s), Oral, BID, Hold if SBP (mmHg) < 100, Hold if HR (bpm) < 60, 0, 10/19/24 21:46:00 EDT Pulmicort Respules 0.25 mg/2 mL inhalation suspension: Start: 10/19/24 21:48:00 EDT, Dose = 0.25 mg, = 2 mL, Inhalation, BIDRT, 0, 10/19/24 21:46:00 EDT Rocephin: Start: 10/19/24 20:23:00 EDT, Dose = 2 gram(s), = 20 mL, IV Push (INT), qDay, Rate: 240 mL/hr, Infuse over: 5 minute(s), 0, 10/19/24 20:20:00 EDT Tylenol: Start: 10/19/24 20:20:00 EDT, Dose = 650 mg, = 2 tab(s), Oral, q4h, PRN, Pain, scale 1-3, 10/19/24 20:20:00 EDT Zofran: Start: 10/19/24 20:20:00 EDT, Dose = 4 mg, = 2 mL, IV Push, q4h, PRN, Nausea/Vomiting, 10/19/24 20:20:00 EDT albuterol 2.5 mg/3 mL (0.083%) inhalation solution: Start: 10/19/24 21:47:00 EDT, Dose = 2.5 mg, = 3 mL, Inhalation, QIDRT, 0, 10/19/24 21:46:00 EDT atorvastatin: Start: 10/19/24 22:00:00 EDT, Dose = 20 mg, = 1 tab(s), Oral, qDay, 10/19/24 21:46:00EDT busPIRone: Start: 10/19/24 21:48:00 EDT, Dose = 7.5 mg, = 1 tab(s), Oral, BID, 0, 10/19/24 21:46:00EDT donepezil: Start: 10/19/24 22:00:00 EDT, Dose = 10 mg, = 1 tab(s), Oral, qHS, 10/19/24 21:46:00 EDT latanoprost 0.005% ophthalmic solution: Start: 10/19/24 22:00:00 EDT, Dose = 1 drop(s), Soln, Eyes,both, qHS, 10/19/24 21:46:00 EDT memantine: Start: 10/19/24 21:49:00 EDT, Dose = 5 mg, = 1 tab(s), Oral, BID, 0, 10/19/24 21:46:00 EDT senna: Start: 10/20/24 11:19:00 EDT, Dose = 8.6 mg, = 1 tab(s), Oral, BID, 10/20/24 11:19:00 EDT tamsulosin: Start: 10/20/24 9:00:00 EDT, Dose = 0.4 mg, = 1 cap(s), Oral, qDay, 0, 10/19/24 21:46:00 EDT timolol (as maleate) 0.5% ophthalmic solution: Start: 10/19/24 21:51:00 EDT, Dose = 1 drop(s), OpSol, Eyes, both, BID, 0, 10/19/24 21:46:00 EDT Suspended allopurinol: Start: 10/20/24 9:00:00 EDT, Dose = 300 mg, = 1 tab(s), Oral, qDay, 0, 10/19/24 21:45:00 EDT Prescriptions Prescribed Breo Ellipta 100 mcg-25 mcg/inh inhalation powder: Dose = 1 puff(s), Inhalation, Daily, # 1 EA, 11 Refill(s), Pharmacy: [facility], 173, cm, 01/25/24 9:05:00 EST, Height, kg, 01/25/24 9:05:00 EST, Dosing Weight Jardiance 10 mg oral tablet: Dose : 10 mg = 1 tab(s), Oral, qAM, # 90 tab(s), 2 Refill(s), Pharmacy: [facility], 172, cm, 08/18/24 8:37:00 EDT, Height, kg, 08/18/24 8:37:00 EDT, DosingWeight Metoprolol Tartrate 25 mg oral tablet: Dose : 25 mg = 1 tab(s), Oral, BID, # 60 tab(s), 11 Refill(s), Pharmacy: [facility] #[id number], Benign essential hypertension Hyperuricemia, 173, cm, 01/05/23 14:34:00 EDT, Height, kg, 01/05/23 14:34:00 EDT, Dosing Weight allopurinol 300 mg oral tablet: Dose : 300 mg = 1 tab(s), Oral, qDay, # 90 tab(s), 3 Refill(s), Pharmacy: [facility] #[id number], 172, cm, 05/01/24 9:59:00 EST, Height, kg, 05/01/24 9:59:00 EST, Dosing Weight atorvastatin 20 mg oral tablet: Dose : 20 mg = 1 tab(s), Oral, qDay, # 90 tab(s), 3 Refill(s), Pharmacy: [id number], Pansinusitis Hyperuricemia, 171, cm, 09/12/24 15:10:00 EDT, Height, kg, 09/12/24 15:10:00 EDT, Dosing Weight benzonatate 100 mg oral capsule: Dose : 100 mg = 1 cap(s), Oral, q8h, PRN as needed for cough, # 60cap(s), 1 Refill(s), Pharmacy: [facility], 171, cm, 09/12/24 15:10:00 EDT, Height, kg, 09/12/24 15:10:00 EDT, Dosing Weight busPIRone 7.5 mg oral tablet: Dose : 7.5 mg = 1 tab(s), Oral, BID, # 180 tab(s), 3 Refill(s), Pharmacy: [facility] #[id number], Anxiety, 173, cm, 01/25/24 9:05:00 EST, Height, kg, 01/25/24 9:05:00 EST, Dosing Weight donepezil 10 mg oral tablet: Dose : 10 mg = 1 tab(s), Oral, qHS, # 90 tab(s), 3 Refill(s), Pharmacy: [facility], 172, cm, 06/10/24 10:06:00 EDT, Height, kg, 06/10/24 10:06:00 EDT, Dosing Weight losartan 25 mg oral tablet: Dose : 25 mg = 1 tab(s), Oral, qDay, # 90 tab(s), 1 Refill(s), Pharmacy: [facility] #[id number], 172, cm, 05/01/24 9:59:00 EST, Height, kg, 05/01/24 9:59:00 EST, Dosing Weight memantine 5 mg oral tablet: Dose : 5 mg = 1 tab(s), Oral, BID, # 180 tab(s), 0 Refill(s), Pharmacy:[facility] #[id number], 172, cm, 08/05/24 16:23:00 EDT, Height, kg, 08/05/24 16:23:00 EDT, Dosing Weight tamsulosin 0.4 mg oral capsule: Dose : 0.4 mg = 1 cap(s), Oral, qDay, # 90 cap(s), 3 Refill(s), [facility]: [id number], Cerumen impaction Urinary incontinence, 173, cm, 01/25/24 9:05:00 EST, Height, kg, 01/25/24 9:05:00 EST, Dosing Weight Documented Medications Documented Fish Oil 1000 mg oral capsule: Dose : 1,000 mg = 1 cap(s), Oral, BID, # 90 cap(s), 0 Refill(s) Tylenol 8 HR Arthritis Pain 650 mg oral tablet, extended release: Dose : 1,300 mg = 2 tab(s), Oral,q8h, PRN as needed for pain, # 100 tab(s), 0 Refill(s) Vitamin B Complex 100: See Instructions, 0 Refill(s) aspirin 81 mg oral delayed release tablet: Dose : 81 mg = 1 tab(s), Oral, Daily, 0 Refill(s) garlic oral capsule: 0 Refill(s) latanoprost 0.005% ophthalmic solution: Dose = 1 drop(s), Eyes, both, qHS, # 2.5 mL, 0 Refill(s) timolol (as maleate) 0.5% ophthalmic solution: Dose = 1 drop(s), Eyes, both, BID, # 5 mL, 0 Refill(s), Medications (18) Active Scheduled: (12) albuterol 0.083% Soln UD (2.5mg/3 mL) 2.5 mg 3 mL, Inhalation, QIDRT atorvastatin 20 mg tablet 20 mg 1 tab(s), Oral, qDay budesonide 0.25 mg/2 mL Susp UD 0.25 mg 2 mL, Inhalation, BIDRT busPIRone 7.5 mg tablet 7.5 mg 1 tab(s), Oral, BID cefTRIAXone IVP syringe 2 gram(s) 20 mL, IV Push (INT), qDay donepezil 10 mg tablet 10 mg 1 tab(s), Oral, qHS latanoprost ophthalmic 0.005% Solution 1 drop(s), Eyes, both, qHS memantine 5 mg Tablet 5 mg 1 tab(s), Oral, BID metoprolol tartrate 25 mg tablet 25 mg 1 tab(s), Oral, BID senna 8.6 mg Tablet 8.6 mg 1 tab(s), Oral, BID tamsulosin 0.4 mg Capsule 0.4 mg 1 cap(s), Oral, qDay timolol ophthalmic 0.5% Solution 5 mL BTL 1 drop(s), Eyes, both, BID Continuous: (1) Lactated Ringers 1,000 mL 1,000 mL, Intravenous, 75 mL/hr PRN: (5) acetaminophen 325 mg Tablet 650 mg 2 tab(s), Oral, q4h albuterol - ipratropium 2.5 mg-0.5 mg/3 mL Inhal Chantal UD 3 mL, Inhalation, q4hRT dextrose 50% Solution Disp syringe 50 mL 25 gram(s) 50 mL, IV Push, AsDirected HYDROmorphone 0.5 mg/0.5 mL syringe 0.25 mg 0.25 mL, IV Push, q3h ondansetron 2 mg/ 1 mL 2 mL INJ 4 mg 2 mL, IV Push, q4h Problem list: Medical Gout attack / SNOMED CT 9039583869 / Confirmed Allergic rhinitis / SNOMED CT 091724739 / Confirmed Generalized weakness / SNOMED CT 30946258 / Confirmed Asthma / SNOMED CT 121711842 / Confirmed Benign essential hypertension / SNOMED CT 6199141 / Confirmed BPH with urinary obstruction / SNOMED CT 3073660986 / Confirmed Candidiasis / SNOMED CT 930779409 / Confirmed Chronic cough / SNOMED CT 737794859 / Confirmed Chronic kidney disease / SNOMED CT 9102219070 / Confirmed CHF with unknown LVEF / SNOMED CT 42363000 / Confirmed CAD in [place] artery / SNOMED CT 39146078 / Confirmed Cough in adult / SNOMED CT 55538919 / Confirmed Cough / SNOMED CT 87269028 / Confirmed Dehydration / SNOMED CT 89159676 / Confirmed Dementia / SNOMED CT 13394192 / Confirmed Shortness of breath / SNOMED CT 440496857 / Confirmed Dysuria / SNOMED CT 12557331 / Confirmed Fatigue / SNOMED CT 787238046 / Confirmed Generalized edema / SNOMED CT 7516088310 / Confirmed Glaucoma / SNOMED CT 31062339 / Confirmed Arthralgia of hip / SNOMED CT 78497196 / Confirmed Bilateral hip pain / SNOMED CT 35406707 / Confirmed Histoplasmosis / SNOMED CT 12184126 / Confirmed History of non-ST elevation myocardial infarction (NSTEMI) / SNOMED CT 3665081840 / Confirmed Hyperuricemia / SNOMED CT 59670990 / Confirmed Cerumen impaction / SNOMED CT 83708046 / Confirmed Influenza A / SNOMED CT 8222337521 / Confirmed Kidney stones / SNOMED CT 028036964 / Confirmed Low back pain / SNOMED CT 574828824 / Confirmed Hypotension / SNOMED CT 100625312 / Confirmed Left lumbar radiculitis / SNOMED CT 2422092812 / Confirmed BROWN on CPAP / SNOMED CT 870114696 / Confirmed Lower extremity pain / SNOMED CT 513717946 / Confirmed Pansinusitis / SNOMED CT 576828286 / Confirmed Well adult exam / SNOMED CT 224506588 / Confirmed Short-term memory loss / SNOMED CT 189936786 / Confirmed Rhabdomyolysis / SNOMED CT 350811113 / Confirmed Right lower lobe pneumonia / SNOMED CT 403766299 / Confirmed Sciatica / SNOMED CT 80091409 / Confirmed Senile purpura / SNOMED CT 34444453 / Confirmed Low serum albumin / SNOMED CT 6585547814 / Confirmed Venous stasis dermatitis / SNOMED CT 75270422 / Confirmed Urinary incontinence / SNOMED CT 2799473887 / Confirmed UTI (urinary tract infection) / SNOMED CT 766191781 / Confirmed Wheezing / SNOMED CT 99901951 / Confirmed, Active Problems (45) Allergic rhinitis Arthralgia of hip Asthma Benign essential hypertension Bilateral hip pain BPH with urinary obstruction CAD in [place] artery Candidiasis Cerumen impaction CHF with unknown LVEF Chronic cough Chronic kidney disease Cough Cough in adult Dehydration Dementia Dysuria Fatigue Generalized edema Generalized weakness Glaucoma Gout attack Histoplasmosis History of non-ST elevation myocardial infarction (NSTEMI) Hyperuricemia Hypotension Influenza A Kidney stones Left lumbar radiculitis Low back pain Low serum albumin Lower extremity pain BROWN on CPAP Pansinusitis Rhabdomyolysis Right lower lobe pneumonia Sciatica Senile purpura Short-term memory loss Shortness of breath Urinary incontinence UTI (urinary tract infection) Venous stasis dermatitis Well adult exam Wheezing Histories Past Medical History: Resolved Petechiae ([id number]): Resolved. Procedure history: No active procedure history items have been selected or recorded. Social History: Social & Psychosocial Habits Alcohol 09/12/2024 Use: Past Substance Abuse 09/12/2024 Use: Never Tobacco 09/12/2024 Tobacco Use: Never (less than 100 in l Nutrition/Health 09/12/2024 Caffeine intake amount: rarely coffee Physical Examination Vital Signs (last 24 hrs) Last Charted Temp Oral36.7 DegC (OCT 20 07:56) Heart Rate MonitoredL 51 bpm (OCT 20 11:39) SBPH 142 mmHg (OCT 20 07:56) DBP67 mmHg (OCT 20 07:56) BMI29.71 (OCT 19 20:04) Measurements from flowsheet : Measurements 10/19/2024 20:04 EDT Height 172.7 cm Height in inches 68 inch(es) Admission Weight 88.6 kg Weight Lbs 194.9 lb E[place] Body Weight 68.38 kg BSA Admission 2.02 Body Mass Index 29.71 kg/m2 General: Alert and oriented. Airway: Normal temporomandibular joint mobility, Normal mouth, Normal neck range of motion. Mallampati classification: III (soft palate, base of uvula visible). Dentition Evaluation: Own teeth, Dentures, partial plate. Neurologic: Alert, Oriented. Assessment and Plan [place] [employer] (ASA) physical status classification: Class III. Anesthetic Preoperative Plan Anesthetic technique: General. Induction: intravenously. Maintenance airway: Laryngeal mask airway. Postoperative pain management: Per surgeon. Risks discussed: nausea, vomiting, headache, sore throat, dental injury, hypotension, allergic reaction, serious complications. Informed consent: signed by patient. Notes: Patient has a h/o HTN, CAD, CHF, Dementia, asthma, CKD. He came in with right flank pain, ureteral stones, DIAN, hydronephrosis.Discussed general anesthesia and he agrees to proceed.. Beta Gerard: Beta Gerard Taken Within 24 Hrs: Yes. Digitally Signed by THERESA GAMING DO on 10/20/2024 11:55 AM [id number] Consult note Date of Service 10/20/2024 Reason for Consultation Obstructing stone Referring Physician Le[place] History of Present Illness Mr. Fredy Box is a 79y/o M w/ h/o CAD, HTN, diastolic CHF, dementia, gout, glaucoma, and recurrent nephrolithiasis who presented to [facility] yesterday with right flank pain andnausea x 2 days. Denies F/C, hematuria, or dysuria. Evaluation notable for WBC 12.5K, Cr 2.31 (baseline 1.57 in 2023), UA nit neg w/ 0-5 WBC/hpf and 0-5 RBC/hpf, and CT A/P showing two R adjacent R distal ureteral calculi, each 5-6 mm, and a 1.2 cm R proximal ureteral calculus w/ moderate R hydroureteronephrosis and perinephric stranding. There is also a cluster of stones in the RLP, ~1.2 cm, andthere are nonobstructing stones in the L kidney as well. There is also an inguinal hernia which he denies feeling and he was not aware of this. He reports having stones since 1979 but isn't sure what type. Has both passed stones and has had surgery several times in various locations. He thinks his last surgery was in 2008. Denies any family history of nephrolithiasis. Review of Systems 14 pt ROS negative except per HPI Physical Exam Vitals and Measurements T: 36.7 C (Oral) TMIN: 36.7 C (Oral) TMAX: 37.1 C (Oral) HR: 65 RR: 18 BP: 142/67 SpO2: 95% HT: 172.7 cm WT: 88.6 kg BMI: 29.71 Weight Dosing Weight: 88.6 kg (10/19/24) Appears somewhat uncomfortable in bed Respirations non-labored Abd soft, mildly tender across R side, no palpable masses + R CVAT deferred to OR No kim Lab Results 10/20 10:54 WBC: 9.3 Hgb: 13.0 Hct: 38.8 L Platelet: 138 L Neutrophil %: 79.4 H 10/19 21:41 WBC: 8.5 Hgb: 14.0 Hct: 40.9 Platelet: 145 L Neutrophil %: 80.0 H Glucose Level: 99 Sodium Level: 143 Potassium Level: 4.9 BUN: 33.0 H Creatinine Lvl (s): 2.66 H Imaging Results and Diagnostics CT personally reviewed as per HPI Assessment/Plan Multiple obstructing right ureteral calculi, symptomatic Bilateral renal calculi [id number]-[id number] kidney injury With no obvious evidence of infection, I recommend proceeding with cystoscopy, right retrograde pyelography, ureteroscopy, laser lithotripsy, basket stone extraction, and ureteral stent placement. R/B/A discussed at length including risk of inability to advance the scope or place the stent requiring additional or further procedures, inability to clear all stone requiring a second ureteroscopy, and stent-related symptoms. He agrees to proceed today. I will update his . Problem List/Past Medical History Ongoing Allergic rhinitis Arthralgia of hip Asthma Benign essential hypertension Bilateral hip pain BPH with urinary obstruction CAD in [place] artery Candidiasis Cerumen impaction CHF with unknown LVEF Chronic cough Chronic kidney disease Cough Cough in adult Dehydration Dementia Dysuria Fatigue Generalized edema Generalized weakness Glaucoma Gout attack Histoplasmosis History of non-ST elevation myocardial infarction (NSTEMI) Hyperuricemia Hypotension Influenza A Kidney stones Left lumbar radiculitis Low back pain Low serum albumin Lower extremity pain BROWN on CPAP Pansinusitis Rhabdomyolysis Right lower lobe pneumonia Sciatica Senile purpura Short-term memory loss Shortness of breath Urinary incontinence UTI (urinary tract infection) Venous stasis dermatitis Well adult exam Wheezing Historical Petechiae Procedure/Surgical History No qualifying data available. Medications Inpatient albuterol 2.5 mg/3 mL (0.083%) inhalation solution, 2.5 mg= 3 mL, Inhalation, QIDRT atorvastatin, 20 mg= 1 tab(s), Oral, qDay busPIRone, 7.5 mg= 1 tab(s), Oral, BID Dextrose 50% IV Push, 25 gram(s)= 50 mL, IV Push, AsDirected, PRN Dilaudid, 0.25 mg= 0.25 mL, IV Push, q3h, PRN donepezil, 10 mg= 1 tab(s), Oral, qHS DuoNeb, 3 mL, Inhalation, q4hRT, PRN latanoprost 0.005% ophthalmic solution, 1 drop(s), Eyes, both, qHS LR 1,000 mL, 1000 mL, Intravenous memantine, 5 mg= 1 tab(s), Oral, BID Metoprolol Tartrate 25 mg oral tablet, 25 mg= 1 tab(s), Oral, BID Pulmicort Respules 0.25 mg/2 mL inhalation suspension, 0.25 mg= 2 mL, Inhalation, BIDRT Rocephin, 2 gram(s)= 20 mL, IV Push (INT), qDay senna, 8.6 mg= 1 tab(s), Oral, BID tamsulosin, 0.4 mg= 1 cap(s), Oral, qDay timolol (as maleate) 0.5% ophthalmic solution, 1 drop(s), Eyes, both, BID Tylenol, 650 mg= 2 tab(s), Oral, q4h, PRN Zofran, 4 mg= 2 mL, IV Push, q4h, PRN Home allopurinol 300 mg oral tablet, 300 mg= 1 tab(s), Oral, qDay, 3 refills aspirin 81 mg oral delayed release tablet, 81 mg= 1 tab(s), Oral, Daily atorvastatin 20 mg oral tablet, 20 mg= 1 tab(s), Oral, qDay, 3 refills benzonatate 100 mg oral capsule, 100 mg= 1 cap(s), Oral, q8h, PRN, 1 refills Breo Ellipta 100 mcg-25 mcg/inh inhalation powder, 1 puff(s), Inhalation, Daily, 11 refills busPIRone 7.5 mg oral tablet, 7.5 mg= 1 tab(s), Oral, BID, 3 refills donepezil 10 mg oral tablet, 10 mg= 1 tab(s), Oral, qHS, 3 refills Fish Oil 1000 mg oral capsule, 1000 mg= 1 cap(s), Oral, BID garlic oral capsule Jardiance 10 mg oral tablet, 10 mg= 1 tab(s), Oral, qAM, 2 refills latanoprost 0.005% ophthalmic solution, 1 drop(s), Eyes, both, qHS losartan 25 mg oral tablet, 25 mg= 1 tab(s), Oral, qDay, 1 refills memantine 5 mg oral tablet, 5 mg= 1 tab(s), Oral, BID Metoprolol Tartrate 25 mg oral tablet, 25 mg= 1 tab(s), Oral, BID, 11 refills tamsulosin 0.4 mg oral capsule, 0.4 mg= 1 cap(s), Oral, qDay, 3 refills timolol (as maleate) 0.5% ophthalmic solution, 1 drop(s), Eyes, both, BID Tylenol 8 HR Arthritis Pain 650 mg oral tablet, extended release, 1300 mg= 2 tab(s), Oral, q8h, PRN Vitamin B Complex 100, See Instructions Allergies NKA Social History Alcohol Use: Past., 01/05/2023 Nutrition/Health Caffeine intake amount: rarely coffee., 11/29/2023 Substance Abuse Use: Never., 01/05/2023 Tobacco Nicotine Use: Never (less than 100 in lifetime)., 09/12/2024 Family History COPD - Chronic obstructive pulmonary disease: Mother. Celiac disease: Brother. Heart attack: Father. Ovarian cancer: Sister. Health Status Family Member(s) Immunizations SARS-CoV-2 (COVID-19) mRNA-1273 vaccine: 0.5 unknown unit (09/08/20) SARS-CoV-2 (COVID-19) mRNA-1273 vaccine: 0.5 unknown unit (08/11/20) tetanus/diphtheria/pertussMUL.ORD![id number]: 0.5 unknown unit (03/05/24) Digitally Signed by BALTA SCHERER MD on 10/20/2024 11:48 AM [id number] Note Date of Service 10/20/2024 Chief Complaint ureteral stones Subjective Pain improved with pain medication. Making urine. Has been through this many times in the past so he knows what to expect. Objective Vitals and Measurements T: 36.7 C (Oral) TMIN: 36.7 C (Oral) TMAX: 37.1 C (Oral) HR: 67 (Apical) RR: 20 BP: 142/67 SpO2: 96% HT: 172.7 cm WT: 88.6 kg BMI: 29.71 On room air Physical Exam Sitting up in bed, talkative, no distress Regular rate and rhythm Lungs clear Abdomen soft, mild right-sided tenderness No lower extremity edema Weight Dosing Weight: 88.6 kg (10/19/24) Medications Medications (17) Active Scheduled: (11) albuterol 0.083% Soln UD (2.5mg/3 mL) 2.5 mg 3 mL, Inhalation, QIDRT atorvastatin 20 mg tablet 20 mg 1 tab(s), Oral, qDay budesonide 0.25 mg/2 mL Susp UD 0.25 mg 2 mL, Inhalation, BIDRT busPIRone 7.5 mg tablet 7.5 mg 1 tab(s), Oral, BID cefTRIAXone IVP syringe 2 gram(s) 20 mL, IV Push (INT), qDay donepezil 10 mg tablet 10 mg 1 tab(s), Oral, qHS latanoprost ophthalmic 0.005% Solution 1 drop(s), Eyes, both, qHS memantine 5 mg Tablet 5 mg 1 tab(s), Oral, BID metoprolol tartrate 25 mg tablet 25 mg 1 tab(s), Oral, BID tamsulosin 0.4 mg Capsule 0.4 mg 1 cap(s), Oral, qDay timolol ophthalmic 0.5% Solution 5 mL BTL 1 drop(s), Eyes, both, BID Continuous: (1) Lactated Ringers 1,000 mL 1,000 mL, Intravenous, 75 mL/hr PRN: (5) acetaminophen 325 mg Tablet 650 mg 2 tab(s), Oral, q4h albuterol - ipratropium 2.5 mg-0.5 mg/3 mL Inhal Chantal UD 3 mL, Inhalation, q4hRT dextrose 50% Solution Disp syringe 50 mL 25 gram(s) 50 mL, IV Push, AsDirected HYDROmorphone 0.5 mg/0.5 mL syringe 0.25 mg 0.25 mL, IV Push, q3h ondansetron 2 mg/ 1 mL 2 mL INJ 4 mg 2 mL, IV Push, q4h Lab Results 10/19 21:41 WBC: 8.5 Hgb: 14.0 Hct: 40.9 Platelet: 145 L Neutrophil %: 80.0 H Glucose Level: 99 Sodium Level: 143 Potassium Level: 4.9 BUN: 33.0 H Creatinine Lvl (s): 2.66 H Assessment/Plan Patient is a 79-year-old man with history of kidney stones admitted for right Ureteral stones with associated hydronephrosis and DIAN. Patient has past medical history of CAD, hypertension, diastolic CHF, dementia, gout, glaucoma. Right ureteral stone Hydronephrosis DIAN Continue ceftriaxone Will request urine culture results from [facility] Urology consult pending Continue IV fluids and will monitor serum creatinine History of CAD Hypertension Chronic diastolic CHF Aspirin, atorvastatin Metoprolol holding home Jardiance - holding home losartan for DIAN Dementia Anxiety - buspirone, donepezil, memantine Gout Holding home allopurinol until kidney function improves Glaucoma - cont home drops Thrombocytopenia - mild and stable. last 132 on 09/10. Should have outpt recheck and f/u Level of Care Indication SD monitor (other: specify in note) DVT Prophylaxis Other: specify in note SCD Maintenance IVF Indication Hypovolemia / DIAN Indwelling Urinary Catheter Indication NA No indwelling catheter Anticipated Timeline of Discharge 24 hours Anticipated DC Disposition Home without services GI ppx: n/a Diet: npo for ureteral stent Mobility: as tolerated Family update: called and discussed with pt's over the phone Digitally Signed by SARINA VIVEROS MD on 10/20/2024 11:24 AM [id number] History and physical note Date of Service October 19, 2024 Chief Complaint Right flank pain History of Present Illness This is a 79-year-old male with a past medical history consistent with CHF, CAD, hypertension, hyperlipidemia, dementia that presents with a chief complaint of right flank pain. Imaging at [facility] demonstrated ureteral stones with associated hydronephrosis. Patient transferred to for further urologic evaluation. Pertinent labs, CBC with WBC of 12, serum creatinine of 2.31, baseline was around 1.5. Admission labs are ordered, pending. Urology was consulted, stated that they would see in consult and to make n.p.o. after midnight. Patient started on Rocephin upon arrival to . On exam, patient denies any new or acute complaints. Vital signs are stable at the time of evaluation. Review of Systems Complete detailed review of systems obtained and all pertinent positives and negatives are noted inthe history of present illness. Physical Exam Vitals and Measurements T: 37 C (Oral) HR: 58 RR: 18 BP: 126/70 SpO2: 96% HT: 172.7 cm WT: 88.6 kg BMI: 29.71 Weight Dosing Weight: 88.6 kg (10/19/24) Physical Examination General: No apparent distress. Alert and appropriate. HEENT: NCAT EOMI Neck: Supple. No appreciable elevation in JVP. Cardiovascular: S1 S2 normal. No extra-audible heart tones. Respiratory: Bilaterally clear breath sounds with no crepitation or wheeze. Abdominal: Soft, nontender and nonrigid. No guarding. Bowel sounds present. Extremities: No edema. Adequate peripheral circulation. Neurological: Grossly intact without focal deficit. Cerebellar function preserved. Skin: Intact. Dry. No rash. Lab Results No 36 Hour Lab Data Imaging Results and Diagnostics Right ureteral stones, personally reviewed Assessment/Plan Right flank pain Right ureteral stone Right hydronephrosis UTI DIAN on CKD Other chronic issues: CHF, CAD, hypertension, hyperlipidemia, history of dementia Patient was admitted for urologic intervention on noted right ureteral stone causing right flank pain and hydronephrosis. Patient now with DIAN on CKD. Patient requires ureteral stenting and possible definitive stone management. Urology is consulted, appreciate recommendations. Patient is n.p.o. status with chemical DVT prophylaxis held anticipation of intervention. 2 g IV Rocephin initiated, follow urinary culture. CBC and BMP are ordered daily and replete electrolytes as necessary. 75 cc an hour lactated Ringer's maintenance intravenous fluid ordered. IV Dilaudid for pain control. IV Zofran for nausea control. The labs, the imaging were personally reviewed in this case. The patient was transferred under the direction of my colleague. DVT prophylaxis: SCDs The patient is a full code Continue patient's home chronic medications pending pharmacy verification. The patient will require 2 midnight stay for workup and management of right flank pain in the setting of the right ureteral stone causing hydronephrosis and now DIAN. Patient requires IV antibiotics and urologic intervention. Risk of decompensation if discharged. Problem List/Past Medical History Ongoing Allergic rhinitis Arthralgia of hip Asthma Benign essential hypertension Bilateral hip pain BPH with urinary obstruction CAD in [place] artery Candidiasis Cerumen impaction CHF with unknown LVEF Chronic cough Chronic kidney disease Cough Cough in adult Dehydration Dementia Dysuria Fatigue Generalized edema Generalized weakness Glaucoma Gout attack Histoplasmosis History of non-ST elevation myocardial infarction (NSTEMI) Hyperuricemia Hypotension Influenza A Kidney stones Left lumbar radiculitis Low back pain Low serum albumin Lower extremity pain BROWN on CPAP Pansinusitis Rhabdomyolysis Right lower lobe pneumonia Sciatica Senile purpura Short-term memory loss Shortness of breath Urinary incontinence UTI (urinary tract infection) Venous stasis dermatitis Well adult exam Wheezing Historical Petechiae Procedure/Surgical History No qualifying data available. Medications Home Medications (18) Active allopurinol 300 mg oral tablet 300 mg = 1 tab(s), Oral, qDay aspirin 81 mg oral delayed release tablet 81 mg = 1 tab(s), Oral, Daily atorvastatin 20 mg oral tablet 20 mg = 1 tab(s), Oral, qDay benzonatate 100 mg oral capsule 100 mg = 1 cap(s), PRN, Oral, q8h Breo Ellipta 100 mcg-25 mcg/inh inhalation powder 1 puff(s), Inhalation, Daily busPIRone 7.5 mg oral tablet 7.5 mg = 1 tab(s), Oral, BID donepezil 10 mg oral tablet 10 mg = 1 tab(s), Oral, qHS Fish Oil 1000 mg oral capsule 1,000 mg = 1 cap(s), Oral, BID garlic oral capsule Jardiance 10 mg oral tablet 10 mg = 1 tab(s), Oral, qAM latanoprost 0.005% ophthalmic solution 1 drop(s), Eyes, both, qHS losartan 25 mg oral tablet 25 mg = 1 tab(s), Oral, qDay memantine 5 mg oral tablet 5 mg = 1 tab(s), Oral, BID Metoprolol Tartrate 25 mg oral tablet 25 mg = 1 tab(s), Oral, BID tamsulosin 0.4 mg oral capsule 0.4 mg = 1 cap(s), Oral, qDay timolol (as maleate) 0.5% ophthalmic solution 1 drop(s), Eyes, both, BID Tylenol 8 HR Arthritis Pain 650 mg oral tablet, extended release 1,300 mg = 2 tab(s), PRN, Oral, q8h Vitamin B Complex 100 See Instructions Allergies NKA Social History Alcohol Use: Past., 01/05/2023 Nutrition/Health Caffeine intake amount: rarely coffee., 11/29/2023 Substance Abuse Use: Never., 01/05/2023 Tobacco Nicotine Use: Never (less than 100 in lifetime)., 09/12/2024 Family History COPD - Chronic obstructive pulmonary disease: Mother. Celiac disease: Brother. Heart attack: Father. Ovarian cancer: Sister. Health Status Family Member(s) Immunizations SARS-CoV-2 (COVID-19) mRNA-1273 vaccine: 0.5 unknown unit (09/08/20) SARS-CoV-2 (COVID-19) mRNA-1273 vaccine: 0.5 unknown unit (08/11/20) tetanus/diphtheria/pertussMUL.ORD![id number]: 0.5 unknown unit (03/05/24) Code Status Code Status - Ordered -- 10/19/24 20:20:00 EDT, Full Code, Constant Order Digitally Signed by MUSHTAQ MAKI DO on 10/19/2024 09:39 PM [id number] Evaluation + Plan noteExtracted from: Title:History and Physical Author:MUSHTAQ MAKI Date:10/19/24 Right flank pain Right ureteral stone Right hydronephrosis UTI DIAN on CKD Other chronic issues: CHF, CAD, hypertension, hyperlipidemia, history of dementia Patient was admitted for urologic intervention on noted right ureteral stone causing right flank pain and hydronephrosis. Patient now with DIAN on CKD. Patient requires ureteral stenting and possible definitive stone management. Urology is consulted, appreciate recommendations. Patient is n.p.o. status with chemical DVT prophylaxis held anticipation of intervention. 2 g IV Rocephin initiated, follow urinary culture. CBC and BMP are ordered daily and replete electrolytes as necessary. 75 cc an hour lactated Ringer's maintenance intravenous fluid ordered. IV Dilaudid for pain control. IV Zofran for nausea control. The labs, the imaging were personally reviewed in this case. The patient was transferred under the direction of my colleague. DVT prophylaxis: SCDs The patient is a full code Continue patient's home chronic medications pending pharmacy verification. The patient will require 2 midnight stay for workup and management of right flank pain in the setting of the right ureteral stone causing hydronephrosis and now DIAN. Patient requires IV antibiotics and urologic intervention. Risk of decompensation if discharged. Future Appointments Appointment Date:10/30/2024 01:20:00 PM Scheduled Provider:DONNA SANCHEZ Location:UROLOGY Appointment Type:URO OV Physical 20 min Appointment Date:11/04/2024 01:30:00 PM Scheduled Provider:ANGELA MERA MD Location:[facility] Appointment Type:PC OV Appointment Date:11/07/2024 09:05:00 AM Scheduled Provider: Location:Main OR Appointment Type:Surgery - [facility] Appointment Date:12/11/2024 11:00:00 AM Scheduled Provider:ANGELA MERA MD Location:[facility] Appointment Type:PC OV Appointment Date:03/06/2025 01:30:00 PM Scheduled Provider:ANGELA MERA MD Location:[facility] Appointment Type:PC OV Future Scheduled Tests Laboratory* Complete Blood Count 11/29/23 * Complete Blood Count 08/20/24 * Sedimentation Rate Automated 11/29/23 * Complete Metabolic Panel 11/29/23 [facility] 08-03-2025 Discharge summary Author Juan M Hirsch [facility] Note Date/Time October 19, 2024 11: 16am [facility] Medical Records Department [address] [place] [address] Emergency Department Summary 10/19/24 MR#: [id number] Acct: [id number] Name: FREDY BOX Rep #:[id number] : 1945 79 From: Juan M Caputo ggett DO PCP: Dr. Angela Mera MD Status:REG ER Location: ED HPI History of Present Illness Chief Complaint: Abd Pain Narrative Narrative: Chief complaint and HPI: Right lower quadrant abdominal pain. 79-year-old male with past medical history of dementia, depression, heart failure, HTN, HLD, BPH presents for evaluation right lower quadrant abdominal pain. Onset yesterday. Associated symptoms of nausea without emesis. Endorses constipation as well as diarrhea. Denies any fever, chills, shortness of breath, chest pain, dysuria, hematuria. Has never had any abdominal surgeries. Review of systems: See HPI Medications: As listed on the chart Allergies: As listed on the chart PFSH: Per chart Vital signs: As listed on the chart. Reviewed. Physical exam: Gen: A&O x3, NAD Head: Normocephalic, atraumatic Eyes: No sclera icterus, conjunctiva clear ENT: Moist mucous membranes Neck: Trachea midline, No JVD CV: RRR, no murmurs, no peripheral edema Resp: Lungs CTA BL, no w/r/c GI: Abd soft, non-distended, mildly tender to palpation diffusely, no r/r/g : Circumcised penis. No penile tenderness or discharge. No penile or testicular swelling. Normal lie and position of the testicles. No testicular tenderness, masses, or skin changes. Cremasteric reflexes intact and equal bilaterally. No rashes Musc: Full ROM, no deformity Skin: Warm, dry Neuro: Alert, oriented, grossly intact, sensation intact Psych: Cooperative, appropriate mood and affect [facility] History Gout Essential hypertension Hyperlipidemia PSVT (paroxysmal supraventricular tachycardia) DIAN (acute kidney injury) Coronary arteriosclerosis after percutaneous transluminal coronary angioplasty (PTCA) Rhabdomyolysis Dementia CVA (cerebral vascular accident) Kidney calculi Home Medications ?Medication ?Instructions ?Recorded ?Last Taken ?Type allopurinol 300 mg tablet 300 mg PO DAILY gout 4 10/18/24 History aspirin 81 mg capsule 81 mg PO DAILY heart health 04/12/23 10/18/24 History atorvastatin 20 mg tablet 20 mg PO DAILY cholesterol 0 04/12/23 10/18/24 History donepezil 10 mg tablet 10 mg PO QHS dementia 10/18/24 History memantine 5 mg tablet 5 mg PO BID dementia 4 10/18/24 History tamsulosin 0.4 mg capsule 0.4 mg PO DAILY urination 10/18/24 History timolol maleate 0.5 % eye drops 1 drp ophthalmic (eye) BID eye 04/12/23 10/18/24 History health losartan 25 mg tablet 25 mg PO DAILY #90 tabs 03/08/0910/18/24 Rx vitamin B complex 1 tab PO DAILY 07/23/23 0805/13 History buspirone 7.5 mg tablet 7.5 mg PO BID 09/11/2310/18 History empagliflozin 10 mg tablet 10 mg PO QAM #90 tabs 09/1110/18/24 Rx (Jardiance) metoprolol succinate 25 mg 25 mg PO BID 12/12/2310/18 History tablet,extended release 24 hr latanoprost 0.005 % eye drops 1 drp ophthalmic (eye) Q HS 09/18/24 10/18/24 History benzonatate 100 mg capsule 100 mg PO Q8H PRN PRN cough 10/19/24 Unknown History cyanocobalamin-liver extract tablet 1 tab PO BID 10/1910/18/24 History fluoride (sodium) 1.1 % dental gel 1 applic PO QHS 06/10 Unknown History fluticasone furoate 100 1 ea inhalation DAILY 10/18/24 History mcg-vilanterol 25 mcg/dose inhalation powder (Breo Ellipta) garlic 580 mg capsule 48 mg PO BID 10/19/24 History omega-3s 300 zm-ejr-pjs-other 2 cap PO BID 10/19/24 History cbtlt7s-dwiw oil 1,000 mg capsule ([place]-3 Fish Oil) Allergy/AdvReac Type Severity Reaction Status Date / Time No Known Allergies Allergy Verified 10/19/24 07:20 Family History Father , Age 68 Myocardial infarction Brother Cancer Sister Cancer Mother Lung disease Surgical History History of heart artery stent (~2010) Social History Smoking Status: Never smoker second hand exposure: Yes alcohol intake: never substance use type: does not use caffeine: Yes Type: carbonated beverages and coffee EXAM Physical Exam Const Vital Signs: 10/19/24 07:21 10/19/24 09:20 Temperature 98.6 F Temperature Source Oral Pulse Rate 54 L 52 L Respiratory Rate 18 14 Blood Pressure 183/75 H 118/64 Blood Pressure Mean 111 82 Pulse Ox 98 93 Oxygen Delivery Method Room Air Room Air MDM MDM MDM Narrative Medical decision making narrative: 79-year-old male with past medical history of dementia, depression, heart failure, HTN, HLD, BPH presents for evaluation right lower quadrant abdominal pain. Differential diagnosis includes but is not limited to appendicitis, gastroenteritis, colitis, constipation, obstruction, UTI, urolithiasis, pancreatitis, electrolyte abnormality. NS bolus and Zofran ordered. Abdominal pain workup ordered including CT abdomen and pelvis. CBC with mild leukocytosisof 12.5. No anemia. Mild thrombocytopenia of 149. Patient has had thrombocytopenia in the past. CMP shows hyperkalemia 5.5 although this is hemolyzed. He has a BUN of 42 and a creatinine of 2.31. On chart review in 2023his creatinine was 1.57. Patient and now in the room do not know his baseline creatinine. Although patient states it was good the last time he was seen, this may be DIAN on CKD versus just chronic CKD. Lactic acid unremarkable. Lipase unremarkable. Mild AST transaminitis of 41. UA negative for UTI but positive for blood. CT abdomen and pelvis with IV contrast was changed to CT abdomen pelvis without given patient's renal function. He has right sided hydronephrosis and hydroureter with perinephritic and periureteral inflammatory stranding. 1.2 cm stone in the proximal right ureter, 2 separate 4 mm stones inthe distal right ureter. He has a prominent right inguinal hernia containing a majority of the terminal ileum. However no inflammation or evidence of obstruction. On reevaluation, patient states his pain is improved. Patient will likely need admission with urology consult. I do not have urology on-call. Patient would [facility]. I reached out to [facility] urology, Dr. Gupta. Plan is likely surgery tomorrow. Okay to eat today. Agrees he will need to be admitted to the hospitalist service. Talk to Dr. Lugo who accepted admission. Patient and updated all the results andthe plan. Patient will be transferred to [facility]. Impression: 1. Multiple right ureterolithiasis with right-sided hydronephrosis and hydroureter with perinephric and periureteral inflammatory stranding 2. DIAN on CKD versus CKD Lab Data Labs: Laboratory Results - last 24 hr 10/19/24 10/19/24 07:35 09:45 WBC 12.5 H RBC 4.46 L Hgb 15.7 Hct 46.7 MCV 104.7 H MCH 35.2 H MCHC 33.6 RDW Std Deviation 56.0 H RDW Coeff of Ese 14.4 Plt Count 149 L MPV 9.0 Immature Gran % (Auto) 0.400 Neut % (Auto) 85.0 H Lymph % (Auto) 5.4 L [place] % (Auto) 8.8 Eos % (Auto) 0.2 Baso % (Auto) 0.2 Absolute Neuts (auto) 10.6 H Absolute Lymphs (auto) 0.68 L Nucleated RBC % 0 Sodium 141 Potassium 5.5 H Chloride 106 Carbon Dioxide 21.9 Anion Gap 13 BUN 42 H Creatinine 2.31 H Estim Creat Clear Calc 28.52 L Est GFR (MDRD) Non-Af 28 L BUN/Creatinine Ratio 18.1 Glucose 113 H Lactic Acid 1.2 Calcium 9.5 Total Bilirubin 0.67 AST 41 H ALT 21 Alkaline Phosphatase 94 Total Protein 7.7 Albumin 4.1 Globulin 3.6 Albumin/Globulin Ratio 1.2 Lipase 50 Urine Color Yellow Urine Clarity Clear Urine pH 6.0 Ur Specific [place] 1.020 Urine Protein 30 H Urine Glucose (UA) 1000 H Urine Ketones Negative Urine Occult Blood 25 H Urine Nitrite Negative Urine Bilirubin Negative Urine Urobilinogen Normal Ur Leukocyte Esterase Negative Urine RBC 0-5 SEEN Urine WBC 0-5 SEEN Ur Squamous Epith Cells 0 SEEN Urine Bacteria 0 SEEN Urine Mucus 0 SEEN Radiography Diagnostic Testing: Clinical Impression(s) from Imaging Studies Abdomen/Pelvis CT 10/19/24 07:31 IMPRESSION: Right-sided hydronephrosis and hydroureter with perinephric and Sarah ureteral inflammatory stranding. There is a 1.2 cm stone in the proximal right ureter and 2 separate 4 mm stones in the distal right ureter. Urologic consultation recommended Prominent right inguinal hernia containing a majority of the terminal ileum. However there is no acute inflammation or evidence of associated ileus or obstruction Bilateral nonobstructing renal stones, bilateral cortical cysts, no specific follow-up needed. No free intraperitoneal fluid, air, or suspicious adenopathy, normal appendix visualized Degenerative bony changes Findings: Multiple obstructing right ureteral stones, right inguinal hernia containing terminal ileum The critical information above was relayed directly by me by telephone to Juan M Hirsch on 10/19/2024 at 9:08 am with readback verification. gs: Reading Location: [id number] Discharge Plan Triage Chief Complaint: Abd Pain ED Provider: Juan M Hirsch Dx/Rx/DC Orders Prescriptions: No Action losartan 25 mg tablet 25 mg PO DAILY Qty: 90 3RF vitamin B complex Tablet 1 tab PO DAILY buspirone 7.5 mg tablet 7.5 mg PO BID metoprolol succinate 25 mg tablet extended release 24 hr 25 mg PO BID latanoprost 0.005 % drops 1 drp ophthalmic (eye) QHS allopurinol 300 mg tablet 300 mg PO DAILY Patient Comments: take 1 tablet by mouth once daily atorvastatin 20 mg tablet 20 mg PO DAILY Patient Comments: take 1 tablet by mouth once daily donepezil 10 mg tablet 10 mg PO [...] 81 mg capsule 81 mg PO DAILY benzonatate 100 mg capsule 100 mg PO Q8H PRN PRN (Reason: cough) fluoride (sodium) 1.1 % gel 1 applic PO QHS fluticasone furoate-vilanterol [Breo Ellipta] 100-25 mcg/dose blister with device 1 ea INHALATION DAILY cyanocobalamin-liver extract Tablet 1 tab PO BID [place]-3 Fish Oil 300-1,000 mg capsule 2 cap PO BID garlic 580 mg capsule 48 mg PO BID Jardiance 10 mg tablet 10 mg PO QAM Qty: 90 3RF Primary Care Provider: Angela Mera Referrals: Angela Mera MD [Primary Care Provider] - Print Language: Moroccan What to do if you have Problems For any increased pain, shortness of breath, bleeding, nausea or vomiting, chestpain, or any unexpected problems, contact your Primary Care Provider. Call [facility] ([phone]) or report to the closest Emergency Room. Call 911 if necessary. 10/19/24 1116 <Electronically signed by Juan M Hirsch DO> Cosigner Signature (if applicable): CC: Dr. Angela Mera MD ~ Signed [facility] Work Phone: 1(353) 172-432408-03-2025 Discharge summary [facility] Medical Records Department [address] [place] [address] Emergency Department Summary 10/19/24 MR#: [id number] Acct: [id number] Name: FREDY BOX Rep #:[id number] : 1945 79 From: Juan M tavarez DO PCP: Dr. Angela Mera MD Status:REG ER Location: ED HPI History of Present Illness Chief Complaint: Abd Pain Narrative Narrative: Chief complaint and HPI: Right lower quadrant abdominal pain. 79-year-old male with past medical history of dementia, depression, heart failure, HTN, HLD, BPH presents for evaluation right lower quadrant abdominal pain. Onset yesterday. Associated symptoms of nausea without emesis. Endorses constipation as well as diarrhea. Denies any fever, chills, shortness of breath, chest pain, dysuria, hematuria. Has never had any abdominal surgeries. Review of systems: See HPI Medications: As listed on the chart Allergies: As listed on the chart PFSH: Per chart Vital signs: As listed on the chart. Reviewed. Physical exam: Gen: A&O x3, NAD Head: Normocephalic, atraumatic Eyes: No sclera icterus, conjunctiva clear ENT: Moist mucous membranes Neck: Trachea midline, No JVD CV: RRR, no murmurs, no peripheral edema Resp: Lungs CTA BL, no w/r/c GI: Abd soft, non-distended, mildly tender to palpation diffusely, no r/r/g : Circumcised penis. No penile tenderness or discharge. No penile or testicular swelling. Normal lie and position of the testicles. No testicular tenderness, masses, or skin changes. Cremasteric reflexes intact and equal bilaterally. No rashes Musc: Full ROM, no deformity Skin: Warm, dry Neuro: Alert, oriented, grossly intact, sensation intact Psych: Cooperative, appropriate mood and affect [facility] Medical History Gout Essential hypertension Hyperlipidemia PSVT (paroxysmal supraventricular tachycardia) DIAN (acute kidney injury) Coronary arteriosclerosis after percutaneous transluminal coronary angioplasty (PTCA) Rhabdomyolysis Dementia CVA (cerebral vascular accident) Kidney calculi Home Medications ?Medication ?Instructions ?Recorded ?Last Taken ?Type allopurinol 300 mg tablet 300 mg PO DAILY gout 4 10/18/24 History aspirin 81 mg capsule 81 mg PO DAILY heart health 04/12/23 10/18/24 History atorvastatin 20 mg tablet 20 mg PO DAILY cholesterol 0 04/12/23 10/18/24 History donepezil 10 mg tablet 10 mg PO QHS dementia 10/18/24 History memantine 5 mg tablet 5 mg PO BID dementia 4 10/18/24 History tamsulosin 0.4 mg capsule 0.4 mg PO DAILY urination 10/18/24 History timolol maleate 0.5 % eye drops 1 drp ophthalmic (eye) BID eye 04/12/23 10/18/24 History health losartan 25 mg tablet 25 mg PO DAILY #90 tabs 03/0 08/10 07/02/25 Rx vitamin B complex 1 tab PO DAILY 07/23/23 0805/13 History buspirone 7.5 mg tablet 7.5 mg PO BID 09/11/2310/18 History empagliflozin 10 mg tablet 10 mg PO QAM #90 tabs 09/1110/18/24 Rx (Jardiance) metoprolol succinate 25 mg 25 mg PO BID 12/12/2310/18 History tablet,extended release 24 hr latanoprost 0.005 % eye drops 1 drp ophthalmic (eye) Q HS 09/18/24 10/18/24 History benzonatate 100 mg capsule 100 mg PO Q8H PRN PRN cough 10/19/24 Unknown History cyanocobalamin-liver extract tablet 1 tab PO BID 10/1910/18/24 History fluoride (sodium) 1.1 % dental gel 1 applic PO QHS 06/10 Unknown History fluticasone furoate 100 1 ea inhalation DAILY 10/18/24 History mcg-vilanterol 25 mcg/dose inhalation powder (Breo Ellipta) garlic 580 mg capsule 48 mg PO BID 10/19/24 History omega-3s 300 sy-jga-ajw-other 2 cap PO BID 10/19/24 History xezpd2g-[id number] oil 1,000 mg capsule ([place]-3 Fish Oil) Allergy/AdvReac Type Severity Reaction Status Date / Time No Known Allergies Allergy Verified 10/19/24 07:20 Family History Father , Age 68 Myocardial infarction Brother Cancer Sister Cancer Mother Lung disease Surgical History History of heart artery stent (~2010) Social History Smoking Status: Never smoker second hand exposure: Yes alcohol intake: never substance use type: does not use caffeine: Yes Type: carbonated beverages and coffee EXAM Physical Exam Const Vital Signs: 10/19/24 07:21 10/19/24 09:20 Temperature 98.6 F Temperature Source Oral Pulse Rate 54 L 52 L Respiratory Rate 18 14 Blood Pressure 183/75 H 118/64 Blood Pressure Mean 111 82 Pulse Ox 98 93 Oxygen Delivery Method Room Air Room Air MDM MDM MDM Narrative Medical decision making narrative: 79-year-old male with past medical history of dementia, depression, heart failure, HTN, HLD, BPH presents for evaluation right lower quadrant abdominal pain. Differential diagnosis includes but is not limited to appendicitis, gastroenteritis, colitis, constipation, obstruction, UTI, urolithiasis, pa ncreatitis, electrolyte abnormality. NS bolus and Zofran ordered. Abdominal pain workup ordered including CT abdomen and pelvis. CBC with mild leukocytosisof 12.5. No anemia. Mild thrombocytopenia of149. Patient has had thrombocytopenia in the past. CMP shows hyperkalemia 5.5 although this is hemolyzed. He has a BUN of 42 and a creatinine of 2.31. On chart review in 2023his creatinine was 1.57. Patient and now in the room do not know his baseline creatinine. Although patient states it wasgood the last time he was seen, this may be DIAN on CKD versus just chronic CKD. Lactic acid unremarkable. Lipase unremarkable. Mild AST transaminitis of 41. UA negative for UTI but positive for blood. CT abdomen and pelvis with IV contrast was changed to CT abdomen pelvis without given patient's renal function. He has right sided hydronephrosis and hydroureter with perinephritic and periureteral inflammatory stranding. 1.2 cm stone in the proximal right ureter, 2 separate 4 mm stones inthe distal right ureter. He has a prominent right inguinal hernia containing a majority of the terminal ileum. However no inflammation or evidence of obstruction. On reevaluation, patient states his pain is improved. Patient will likely need admission with urology consult. I do not have urology on-call. Patient would like to go to [facility]. I reached out to [facility] urology, Dr. Gupta. Plan is likely surgery tomorrow. Okay to eat today. Agrees he will need to be admitted to the hospitalist service. Talk to Dr. Lugo who accepted admission. Patient and updated all the results andthe plan. Patient will be transferred to [facility]. Impression: 1. Multiple right ureterolithiasis with right-sided hydronephrosis and hydroureter with perinephricand periureteral inflammatory stranding 2. DIAN on CKD versus CKD Lab Data Labs: Laboratory Results - last 24 hr 10/19/24 10/19/24 07:35 09:45 WBC 12.5 H RBC 4.46 L Hgb 15.7 Hct 46.7 MCV 104.7 H MCH 35.2 H MCHC 33.6 RDW Std Deviation 56.0 H RDW Coeff of Ese 14.4 Plt Count 149 L MPV 9.0 Immature Gran % (Auto) 0.400 Neut % (Auto) 85.0 H Lymph % (Auto) 5.4 L Overton % (Auto) 8.8 Eos % (Auto) 0.2 Baso % (Auto) 0.2 Absolute Neuts (auto) 10.6 H Absolute Lymphs (auto) 0.68 L Nucleated RBC % 0 Sodium 141 Potassium 5.5 H Chloride 106 Carbon Dioxide 21.9 Anion Gap 13 BUN 42 H Creatinine 2.31 H Estim Creat Clear Calc 28.52 L Est GFR (MDRD) Non-Af 28 L BUN/Creatinine Ratio 18.1 Glucose 113 H Lactic Acid 1.2 Calcium 9.5 Total Bilirubin 0.67 AST 41 H ALT 21 Alkaline Phosphatase 94 Total Protein 7.7 Albumin 4.1 Globulin 3.6 Albumin/Globulin Ratio 1.2 Lipase 50 Urine Color Yellow Urine Clarity Clear Urine pH 6.0 Ur Specific [place] 1.020 Urine Protein 30 H Urine Glucose (UA) 1000 H Urine Ketones Negative Urine Occult Blood 25 H Urine Nitrite Negative Urine Bilirubin Negative Urine Urobilinogen Normal Ur Leukocyte Esterase Negative Urine RBC 0-5 SEEN Urine WBC 0-5 SEEN Ur Squamous Epith Cells 0 SEEN Urine Bacteria 0 SEEN Urine Mucus 0 SEEN Radiography Diagnostic Testing: Clinical Impression(s) from Imaging Studies Abdomen/Pelvis CT 10/19/24 07:31 IMPRESSION: Right-sided hydronephrosis and hydroureter with perinephric and Sarah ureteral inflammatory stranding. There is a 1.2 cm stone in the proximal right ureter and 2 separate 4 mm stones in the distal right ureter. Urologic consultation recommended Prominent right inguinal hernia containing a majority of the terminal ileum. However there is no acute inflammation or evidence of associated ileus or obstruction Bilateral nonobstructing renal stones, bilateral cortical cysts, no specific follow-up needed. No free intraperitoneal fluid, air, or suspicious adenopathy, normal appendix visualized Degenerative bony changes Findings: Multiple obstructing right ureteral stones, right inguinal hernia containing terminal ileum The critical information above was relayed directly by me by telephone to Juan M Hirsch on 10/19/2024 at 9:08 am with readback verification. gs: Reading Location: [facility] Discharge Plan Triage Chief Complaint: Abd Pain ED Provider: Juan M Hirsch Dx/Rx/DC Orders Prescriptions: No Action losartan 25 mg tablet 25 mg PO DAILY Qty: 90 3RF vitamin B complex Tablet 1 tab PO DAILY buspirone 7.5 mg tablet 7.5 mg PO BID metoprolol succinate 25 mg tablet extended release 24 hr 25 mg PO BID latanoprost 0.005 % drops 1 drp ophthalmic (eye) QHS allopurinol 300 mg tablet 300 mg PO DAILY Patient Comments: take 1 tablet by mouth once daily atorvastatin 20 mg tablet 20 mg PO DAILY Patient Comments: take 1 tablet by mouth once daily donepezil 10 mg tablet 10 mg PO [...] 81 mg capsule 81 mg PO DAILY benzonatate 100 mg capsule 100 mg PO Q8H PRN PRN (Reason: cough) fluoride (sodium) 1.1 % gel 1 applic PO QHS fluticasone furoate-vilanterol [Breo Ellipta] 100-25 mcg/dose blister with device 1 ea INHALATION DAILY cyanocobalamin-liver extract Tablet 1 tab PO BID [place]-3 Fish Oil 300-1,000 mg capsule 2 cap PO BID garlic 580 mg capsule 48 mg PO BID Jardiance 10 mg tablet 10 mg PO QAM Qty: 90 3RF Primary Care Provider: Angela Mera Referrals: Angela Mera MD [Primary Care Provider] - Print Language: Moroccan What to do if you have Problems For any increased pain, shortness of breath, bleeding, nausea or vomiting, chestpain, or any unexpected problems, contact your Primary Care Provider. Call [facility] ([phone]) or report tothe closest Emergency Room. Call 911 if necessary. 10/19/24 1116 Cosigner Signature (if applicable): CC: Dr. Angela Mera MD ~ Signed [facility]08-03-2025 Radiology Diagnostic study note [facility] Imaging Services [address] [place] [address] Abdomen/Pelvis without Cont MR#: [id number] Acct: [id number] Name: FREDY BOX Rep #: [id number] : 1945 M 79 From: Tomi Krishna MD PCP: Dr. Angela Mera MD Status: REG ER Study:Abdomen/Pelvis without Cont Date of Exa m: 10/19/24 Exam# [id number] Ordering Dr: Juan M Williamson DO PROCEDURE: ABDOMEN/PELVIS WITHOUT CONT 10/19/2024 REASON FOR EXAM: RIGHT LOWER QUADRANT ABDOMINAL PAIN TECHNIQUE: ABDOMEN/PELVIS WITHOUT CONT Noncontrast technique limits evaluation of the abdominal and pelvic viscera. Coronal and Sagittal reconstruction series were provided. One or more dose reduction techniques were used (e.g., Automated exposure control, adjustment of the mA and/or kV according to patient size, use of iterative reconstruction technique). RADIATION DOSE SUMMARY: CTDlvol: 11.52 mGy DLP: 714.15 mGycm COMPARISON: None FINDINGS: Lung bases: Chronic interstitial changes in the lung bases with granulomatous calcifications, and dependent atelectasis. Dense coronary artery calcifications noted. Liver: Normal size. No obvious mass. Gallbladder: Unremarkable Spleen: Normal size. Pancreas: Normal size. No surrounding inflammation. Adrenals: Unremarkable Kidneys: Left kidney is free of obstructive uropathy or suspicious solid renal lesion. There are scattered simple cortical cysts which need no specific follow-up. The right kidney however shows hydronephrosis and hydroureter with perinephric and Sarah ureteral inflammatory stranding. There is a 1.2 cm calcification in the proximal right ureter seen on axial image 104 and coronal recon image 61. In the distal right ureter there are also 2 other separate stones each measuring a proximally 4 mm seen on coronal recon image 82 and axial images 157 through 162. There are multiple nonobstructing right renal stones measuringbetween 0.2 and 1.0 cm. There are also multiple simple cortical cysts in the right kidney which need no specific follow-up. Bladder: Bladder distends normally Reproductive Organs: The prostate is not significantly enlarged but shows multiple chunky calcifications suggesting chronic prostatitis. Bowel: Bowel loops are unremarkable. No ileus or obstruction. No acute inflammation. Scattered sigmoid diverticula without CT evidence of acute diverticulitis. Appendix: Normal appendix seen on coronal recon images 45 through 48. Lymph nodes: No suspicious mesenteric or retroperitoneal lymph nodes Vasculature: Peripheral calcifications in the abdominal aorta without aneurysm. Peritoneum / Retroperitoneum: No free fluid or air Bones: Degenerative bony changes Prominent right inguinal hernia which contains fat and the majority of the terminal ileum. No acuteinflammation is noted. There is a small fat containing left inguinal hernia. CT/Abdomen/Pelvis without Cont IMPRESSION: Right-sided hydronephrosis and hydroureter with perinephric and Sarah ureteral inflammatory stranding. There is a 1.2 cm stone in the proximal right ureter and 2 separate 4 mm stones in the distal right ureter. Urologic consultation recommended Prominent right inguinal hernia containing a majority of the terminal ileum. However there is no acute inflammation or evidence of associated ileus or obstruction Bilateral nonobstructing renal stones, bilateral cortical cysts, no specific follow-up needed. No free intraperitoneal fluid, air, or suspicious adenopathy, normal appendix visualized Degenerative bony changes Findings: Multiple obstructing right ureteral stones, right inguinal hernia containing terminal ileum The critical information above was relayed directly by me by telephone to Juan M Hirsch on 10/19/2024 at 9:08 am with readback verification. gs: Reading Location: [id number] CC: Dr. Juan M Hirsch, DO; Dr. Angela Mera MD ~ Log Haul Operator: Signed [facility]07-03-2025 Evaluation note* Diagnosis Onset Date Resolution Status Admit Date Heart failure with preserved ejection fraction acute September 18, 2024 1:16pm Coronary arteriosclerosis af ter percutaneous transluminal coronary angiopla chronic September 18, 2024 1:16pm Essential hypertension chronic Ju 2024 1:16pm Hyperlipidemia chronic September 18, 2024 1:16pm [facility] Work Phone: 1(882) 361-924306-04-2025 Note. MICRO - Microbiology PROCEDURE: Urine Culture [...] Locations *1: This test was performed at: [address], [facility] , [facility]07-21-2024 Note. MICRO - Microbiology PROCEDURE: Urine Culture [*1] SOURCE: Urine, Clean Catch BODY SITE: COLLECTED DATE/TIME: 10/05/2023 16:24 EDT RECEIVED DATE/TIME: 10/05/2023 19:44 EDT START DATE/TIME: 10/05/2023 19:44 EDT FREE TEXT SOURCE: FINAL REPORTS Final Report [] Verified Date/Time/Personnel: 10/07/2023 09:11 EDT 10,000 - 50,000 cfu/ml Zulema albicans Contact Microbiology within 72 hours if further identification is indicated ([id number]). [place] counts from a single urine are equivocal [...] Locations *1: This test was performed at: [address], [facility] , [facility]05-20-2023 Note. MICRO - Microbiology PROCEDURE: Urine Culture [...] Locations *1: This test was performed at: [address], [address] , [facility]04-18-2023 Discharge summary Author Jesse Slade [facility] April 18, 2023 2:44pm Note Date/Time April 18, 2023 2 :44pm [facility] Medical Records Department [address] [place] [address] Discharge Summary 04/18/23 1443 MR#: [id number] Acct: [id number] Name: FREDY BOX Rep #:[id number] : 1945 78 From: Jesse Slade DO PCP: Dr. Angela Mera MD Status:ADM IN Location: [facility] [id number] Providers Date of Admission: 04/12/23 Primary Care [...] Medically stable. Patient and family decided to [facility] but would not have any beds [...] unintended wt loss x 2 wks captain cannery tender Status Active Problem Recommendation Dietitian Recommendations/Changes Will [...] None applicable Discharge Plan Admission Admit Date/Time: 04/12/23 12:54 [...] MD [Primary Care Provider] - Yojana Ugarte CLIENT RELATION SPECIALIST, CLIENT RELATION SPECIALIST-C [Med Staff - Adv Practice Prof] - 04/23/23 11:00 am Disposition Disposition (needs filled in before D/C Order can be placed): [facility] Facility Charges/Coding Visit Charges Inpatient E&M: 73401 Disch Hosp >30min 04/18/23 1444 <Electronically signed by Jesse Slade DO> Cosigner Signature (if applicable): CC: Dr. Jesse Slade DO; Dr. Angela Mera MD~ Signed [facility] Work Phone: 1(672) 531-799701-31-2024 Discharge summary Author Jesse Slade [facility] April 18, 2023 12:44pm Note Date/Time April 18, 2023 1 2:42pm [facility] Medical Records Department [address] [place] [address] Transfer to Extended Care MR#: [id number] Acct: [id number] Name: FREDY BOX Rep #:[id number] : 1945 78 From: Jesse Slade DO PCP: Dr. Angela Mera MD Status:ADM IN Certification of patient admission REQUIRED AT TIME OF ADMISSION. I CERTIFY THAT POST-HOSPITAL ECF SERVICES ARE REQUIRED TO BE GIVEN ON AN IN-PATIENT BASIS BECAUSE OF THE ABOVE NAMED PATIENT'S NEED FOR CARE HOME CARE ON A CONTINUING BASIS FOR THE CONDITION(S) FOR WHICH HE/SHE WAS RECEIVING IN-PATIENT HOSPITAL SERVICES PRIOR TO HIS/HER TRANSFER TO THE [facility]. 04/18/23 1244<Electronically signed by Jesse Slade DO> [...] Medically stable. Patient and family decided to [facility] but would not have any beds [...] MD [Primary Care Provider] - Yojana Ugarte NP, CLIENT RELATION SPECIALIST-C [Med Staff - [facility] Practice Prof] - 04/23/23 11:00 am Disposition Disposition (needs filled in before D/C Order can be placed): [facility] Facility (2) Rhabdomyolysis Qualifiers: Rhabdomyolysis type: traumatic Encounter type: initial encounter Qualified Code(s): T79.6XXA - Traumatic ischemia of muscle, initial encounter 04/18/23 1244 <Electronically signed by Jesse Slade DO> Cosigner Signature (if applicable): CC: Dr. Gagandeep Felder MD; Dr. Jack Fuller MD; Dr. Tesha Layne MD; Dr. Angela Mera MD ~ [facility] Work Phone: 1(574) 485-443601-31-2024 Progress note Author Jesse Slade [facility] April 18, 2023 12:41pm Note Date/Time April 18, 2023 7 :59am [facility] Medical Records Department [address] [place] [address] Progress Note - Hospitalist 04/18/23 0758 MR#: [id number] Acct: [id number] Name: FREDY BOX Rep #:[id number] : 1945 78 From: Jesse Slade DO PCP: Dr. Angela Mera MD Status:ADM IN Location: [place] [address] Subjective Subjective Feels better. Objective Data Objective [...] Intake and Output for Last 24 Hours 04/16/23 04/17/23 04/18/23 23:59 23:59 23:59 Intake Total 220 / [...] unintended wt loss x 2 wks captain cannery tender Status Active Problem Recommendation Dietitian Recommendations/Changes Will [...] 71.8 H, Lymph % (Auto) 15.3 L, [place] % (Auto) 9.8, Eos % (Auto) 0.9, [...] Medically stable. Patient and family decided to [facility] but would not have any beds available until the . Charges/Coding Visit Charges Inpatient E&M: 26504 Subs Hosp L2 04/18/23 1241 <Electronically signed by Jesse Slade DO> Cosigner Signature (if applicable): CC: ~ Signed [facility] Work Phone: 1(417) 767-582601-30-2024 Progress note Author Jesse Slade [facility] April 17, 2023 1:11pm Note Date/Time April 17, 2023 8 :32am [facility] Medical Records Department [address] [place] [address] Progress Note - Hospitalist 04/17/23831 MR#: [id number] Acct: [id number] Name: FREDY BOX Rep #:[id number] : 1945 78 From: Jesse Slade DO PCP: Dr. Angela Mera MD Status:ADM IN Location: [place] [address] Subjective Subjective Weak voice ongoing. Still feeling [...] unintended wt loss x 2 wks captain cannery tender Status Active Problem Recommendation Dietitian Recommendations/Changes Will liberalize diet to Regular d/t signs and symptoms of malnutrition Will order 4 oz ensure plus high protein 3x/day w/ medpass for increased nutrition if consumed. Lab / Micro Data 04/17/23 07:14 04/17/23 07:14 Labs: Laboratory Results - last 24 hr 04/16/23 09:25: Urine Color Yellow, Urine Clarity Clear, Urine pH 6.0, Ur Specific [place] 1.010, Urine Protein 30 H, Urine Glucose [...] Medically stable. Patient and family decided to [facility] but would not have any beds available until the . Charges/Coding Visit Charges Inpatient E&M: 24364 Subs Hosp L2 04/17/23 1311 <Electronically signed by Jesse Slade DO> Cosigner Signature (if applicable): CC: ~ Signed [facility] Work Phone: 1(164) 213-336901-30-2024 Progress note Author Gagandeep Felder [facility] [facility] April 17, 2023 1:01pm Note Date/Time April 17, 2023 1 0:15am [facility] Medical Records Department [address] [place] [address] Progress Note - Nephrology 04/17/23 1010 MR#: [id number] Acct: [id number] Name: FREDY BOX Rep #:[id number] : 1945 78 From: Halie BRIGHT PCP: Dr. Angela Mera MD Status:ADM IN Location: [place] [address] Documented by User: DEANGELO Yo 04/17/23 10:15 [...] unintended wt loss x 2 wks captain cannery tender Status Active Problem Recommendation Dietitian Recommendations/Changes Will [...] 71.8 H, Lymph % (Auto) 15.3 L, Overton % (Auto) 9.8, Eos % (Auto) 0.9, [...] creatinine is 1.23. No acute indication for DRUG COUNSELOR. Potassium and bicarb normal. - CPK 28,000 [...] creatinine is 1.23. No acute indication for DRUG COUNSELOR. Potassium and bicarb normal. - CPK 28,000 [...] by Gagandeep Felder MD> CC: ~ Signed [facility] Work Phone: 1(953) 471-251601-29-2024 Progress note Author Jesse Slade [facility] April 16, 2023 2:24pm Note Date/Time April 16, 2023 9 :30am [facility] Medical Records Department [address] [place] [address] Progress Note - Hospitalist 04/16/23921 MR#: [id number] Acct: [id number] Name: FREDY BOX Rep #:[id number] : 1945 78 From: Jesse Slade DO PCP: Dr. Angela Mera MD Status:ADM IN Location: [place] [address] Subjective Subjective Feeling very weak. Walking to and from the bathroom with a walker and assistance was like [facility]. Objective Data Objective Data Vital Signs: Vital [...] / 4049.58 220 / 220 Output Total 1624 2400 / 2400 500 / 500 Balance 3005.00 / 2725.00 1649.58 / 1649.58 -280 / -280 Medical Nutrition Assessment Dietitian: Malnutrition Criteria Met Start: 04/13/23 11:51 Freq: Status: Active Protocol: Document 04/13/23 11:51 SLA (Rec: 04/13/23 11:51 [facility] Desktop) Nutrition Malnutrition Evidence of Malnutrition Exists Yes Malnutrition (severe): Acute Illness/Injury Evidenced By Suboptimal Energy Intake ( Severe),Weight Loss (Severe) Clinical Problem Acute Disease or Injury Related Malnutrition Etiology related to acute illness and inadequate energy intake Signs/Symptoms as evidenced by pt po intake meeting <50% of est nutritional needs and 3.3% unintended wt loss x 2 wks captain cannery tender Status Active Problem Recommendation Dietitian Recommendations/Changes Will [...] 76.5 H, Lymph % (Auto) 13.9 L, Overton % (Auto) 8.2, Eos % (Auto) 0.5, [...] Medically stable. Patient and family decided to [facility] but would not have any beds [...] the phone. Charges/Coding Visit Charges Inpatient E&M: 70370 Subs Hosp L3 04/16/23 1428 <Electronically signed by Jesse Slade DO> Cosigner Signature (if applicable): CC: ~ Signed [facility] Work Phone: 1(311) 465-393601-28-2024 Progress note Author Tesha Layne [facility] April 15, 2023 2:00pm Note Date/Time April 15, 2023 1 2:17pm [facility] Medical Records Department [address] [place] [address] Progress Note 04/15/23 1215 MR#: [id number] Acct: [id number] Name: FREDY BOX Rep #:[id number] : 1945 78 From: Tesha Layne MD PCP: Dr. Angela Mera MD Status:ADM IN Location: [place] [address] Subjective Subjective Patient and examined. He had [...] / 2249.58 Output Total 1450 / 1450 162 / 2024 1400 / 1400 Balance 2509.11 / 2509.11 [...] unintended wt loss x 2 wks captain cannery tender Status Active Problem Recommendation Dietitian Recommendations/Changes Will [...] 77.0 H, Lymph % (Auto) 14.9 L, Overton % (Auto) 7.2, Eos % (Auto) 0.3, [...] Lilly Francois MD at 13:59 EST , Rhythm Strip Rhythm Strip: PSVT otherwise [...] board. * Charges/Coding Visit Charges Inpatient E&M: 25811 Subs Hosp L2 04/15/23 1400 <Electronically signed by Tesha Layne MD> Tesha Layne MD Cosigner Signature (if applicable): CC: ~ Signed [facility] Work Phone: 1(514) 196-174201-28-2024 Progress note Author Jack Fuller [facility] April 15, 2023 9:49am Note Date/Time April 15, 2023 9 :49am [facility] Medical Records Department [address] [place] [address] Progress Note - Cardiology 04/15/23 0943 MR#: [id number] Acct: [id number] Name: FREDY BOX Rep #:[id number] : 1945 78 From: Jack Fuller MD PCP: Dr. Angela Mera MD Status:ADM IN Location: [place] [address] Subjective Subjective The patient's telemetry showed short [...] / 1038.75 Output Total 1450 / 1450 1624 / 2024 1000 / 1000 Balance 2509.11 / 2509.11 [...] 77.0 H, Lymph % (Auto) 14.9 L, Overton % (Auto) 7.2, Eos % (Auto) 0.3, [...] 77.0 H, Lymph % (Auto) 14.9 L, Overton % (Auto) 7.2, Eos % (Auto) 0.3, [...] facial fracture identified. Pansinusitis. Electronically Signed: Lilly Francosi MD at 13:59 EST Reading Location ID and State: [facility] / [place] Tel , Service support , Physical Exam Const oriented x3 HEENT [...] is needed please feel free to recontact [facility] 2. The patient is follow-up per his previously arranged appointment in the [facility] and as needed. Charges/Coding Visit Charges Inpatient E&M: 75896 Subs Hosp L2 04/15/23 0949 <Electronically signed by Jack Fuller MD> Cosigner Signature (if applicable): CC: ~ Signed [facility] Work Phone: 1(897) 578-182001-28-2024 Consult note Author Gagandeep Felder [facility] April 15, 2023 9:45am Note Date/Time April 15, 2023 9 :45am [facility] Medical Records Department [address] [place] [address] Consultation - Nephrology 04/15/23 0942 MR#: [id number] Acct: [id number] Name: FREDY OBX Rep #:[id number] : 1945 78 From: Gagandeep wiggins MD PCP: Dr. Angela Mera MD Status:ADM IN Location: [place] [address] Assessment & Plan Assessment/Plan (1) Rhabdomyolysis: QUALIFIERS: [...] decent urine output. No breathing difficulties. [facility] Medical History (Updated 04/15/23 @ 09:43 [...] unintended wt loss x 2 wks captain cannery tender Status Active Problem Recommendation Dietitian Recommendations/Changes Will [...] 77.0 H, Lymph % (Auto) 14.9 L, Overton % (Auto) 7.2, Eos % (Auto) 0.3, [...] 13:59 EST Reading Location ID and State: [facility] / [place] Tel , Service support , 04/15/23 8127 <Electronically signed by Gagandeep Felder MD> Cosigner Signature (if applicable): CC: Dr. Gagandeep Felder MD; Dr. Jack Fuller MD; Dr. Angela Mera MD~ Signed [facility] Work Phone: 1(589) 266-446301-27-2024 Progress note [facility] April 14, 2023 1:37pm Note Date/Time April 14, 2023 1 0:03[facility] Medical Records Department [address] [place] [address] [place] [address] Progress Note 04/14/23 1001 MR#: [id number] Acct: [id number] Name: FREDY BOX Rep #:[id number] : 1945 78 From: Tesha Layne MD PCP: Dr. Angela Mera MD Status:ADM IN Location: [place] [address] Subjective Subjective Patient seen and examined. He [...] unintended wt loss x 2 wks captain cannery tender Status Active Problem Recommendation Dietitian Recommendations/Changes Will [...] 81.4 H, Lymph % (Auto) 11.0 L, Overton % (Auto) 6.9, Eos % (Auto) 0.0, [...] H, Alkaline Phosphatase 63, Total Creatine Kinase 27060 H, Total Protein 5.6 L, Albumin 2.3 [...] Signed: Lucio Krishna MD at 16:09 EST Reading Location ID and State: [address] [place] [address] , Service support , Physical Exam Const alert, oriented x3 [...] 2.53. * [place] [address] * cut down fluids to 150cc/hr. NS. [...] Cosigner Signature (if applicable): CC: ~ Signed [facility] Work Phone: 1(415) 999-133701-26-2024 Progress note Author Tesha [facility] April 13, 2023 4:55pm Note Date/Time April 13, 2023 1 1:39am [facility] Medical Records Department [address] [place] [address] Progress Note 04/13/23 1136 MR#: [id number] Acct: [id number] Name: FREDY BOX Rep #:[id number] : 1945 78 From: Tesha Layne MD PCP: Dr. Angela Mera MD Status:ADM IN Location: [place] [id number] Subjective Subjective Patient seen and examined. He [...] 84.0 H, Lymph % (Auto) 6.2 L, Overton % (Auto) 9.4, Eos % (Auto) 0.0, [...] H, Alkaline Phosphatase 85, Total Creatine Kinase 50377 H, Troponin I High Sens 3604 H*, [...] 86.6 H, Lymph % (Auto) 6.7 L, Overton % (Auto) 6.0, Eos % (Auto) 0.0, [...] H, Alkaline Phosphatase 69, Total Creatine Kinase 52389 H, Total Protein 5.9 L, Albumin 2.6 [...] Signed: Hang Wood MD at 12:29 EST Reading Location ID and State: [id number] / [employer] , Service support , Lumbar Spine CT 04/12/23 11:12 IMPRESSION: [...] 150 cc/[place] [address] [place] [address] * PT OT on board. Fall precautions. [...] code * Charges/Coding Visit Charges Inpatient E&M: 33843 Subs Hosp L3 04/13/23 2677 <Electronically signed by Tesha Layne MD> Tesha Layne MD Cosigner Signature (if applicable): CC: ~ Signed [facility] Work Phone: 1(588) 643-851001-26-2024 Progress note Author Jack Fuller [facility] April 13, 2023 9:42am Note Date/Time April 13, 2023 9 :39am [facility] Medical Records Department [address] [place] [address] Progress Note - Cardiology 04/13/2335 MR#: [id number] Acct: [id number] Name: FREDY BOX Rep #:[id number] : 1945 78 From: Jack Fuller MD PCP: Dr. Angela Mera MD Status:ADM IN Location: [place] [address] Subjective Subjective The patient reports she continues [...] 84.0 H, Lymph % (Auto) 6.2 L, Overton % (Auto) 9.4, Eos % (Auto) 0.0, [...] H, Alkaline Phosphatase 85, Total Creatine Kinase 15500 H, Troponin I High Sens 3604 H*, [...] 86.6 H, Lymph % (Auto) 6.7 L, Overton % (Auto) 6.0, Eos % (Auto) 0.0, [...] H, Alkaline Phosphatase 69, Total Creatine Kinase 31604 H, Total Protein 5.9 L, Albumin 2.6 [...] 84.0 H, Lymph % (Auto) 6.2 L, Overton % (Auto) 9.4, Eos % (Auto) 0.0, [...] 86.6 H, Lymph % (Auto) 6.7 L, Overton % (Auto) 6.0, Eos % (Auto) 0.0, [...] please call. Charges/Coding Visit Charges Inpatient E&M: 75298 Subs Hosp L2 04/13/23 0942 <Electronically signed by Jack Fuller MD> Cosigner Signature (if applicable): CC: ~ Signed [facility] Work Phone: 1(656) 277-636101-25-2024 History and physical note [facility] April 12, 2023 4:38pm Note Date/Time April 12, 2023 1 2:50pm [facility] Medical Records Department [address] [place] [address] History & Physical Exam 04/12/23 1243 MR#: [id number] Acct: [id number] Name: FREDY BOX Rep #:[id number] : 1945 78 From: Tesha Layne MD PCP: Dr. Angela Mera MD Status:ADM IN Location: [facility] [id number]- [id number] HPI - General General Date of [...] in the ED were BP of 119/61, NV of 66, RR of 23 nad he was saturating at 95% on 2L of oxygen. CBC showed Hb of 12.6, wbc of 8.8, platelets of 123. CBC showed sodium of 41, bicarb of 18, CR of 3.27 and lactic acid of 2.3. Initial troponin was 3604, and CPK was 26636. Respiratory panel was positive for flu A. CT of the cervical, thoracic and lumbar spine showed multiple level degenerativechanges. He is being admitted to be managed for DIAN in the setting of rhabdomyolysis, debility and non-STEMI. [facility] Medical History (Updated 04/12/23 @ 16:01 [...] 84.0 H, Lymph % (Auto) 6.2 L, Overton % (Auto) 9.4, Eos % (Auto) 0.0, [...] H, Alkaline Phosphatase 85, Total Creatine Kinase 85265 H, Troponin I High Sens 3604 H*, [...] Patient elects to be full code. Total ilqy-ry-yebk time 17 minutes. Charges/Coding Visit Charges Inpatient E&M: 96383 Init Hosp L3 Procedures Hospitalists Procedures: 64589 Advncd Care Plan 30 Min 04/12/23 1638 <Electronically signed by Tesha Layne MD> Cosigner Signature (if applicable): CC: Dr. Tesha Layne MD; Dr. Angela Mera MD~ Signed [facility] Work Phone: 1(692) 732-463001-25-2024 Consult note Author Jack Fuller [facility] April 12, 2023 4:05pm Note Date/Time April 12, 2023 4 :05pm [facility] Medical Records Department [address] [place] [address] Consultation - Cardiology 04/12/23 1550 MR#: [id number] Acct: [id number] Name: FREDY BOX Rep #:[id number] : 1945 78 From: Jack Fuller MD PCP: Dr. Angela Mera MD Status:ADM IN Location: [place] [id number]- 1 Assessment & Plan Assessment/Plan (1) Rhabdomyolysis: QUALIFIERS: Rhabdomyolysis type: traumatic Encounter type: initial encounter Qualified Code(s): T79.6XXA - Traumatic ischemia of muscle, initial encounter PLAN: Patient CPK is 28,000 in the face of acute renal failure. The patient is being treated by the primary service for the rhabdomyolysis. (2) Coronary arteriosclerosis after percutaneous transluminal coronary angioplasty (PTCA): PLAN: Status post stenting in [facility] in 2010 the patient is not [...] coronary disease status post remote stenting in [facility] in 2010. He says he had [...] at the time of my examination. [facility] Medical History (Updated 04/12/23 @ 16:01 [...] 20% Risk Charges/Coding Visit Charges Inpatient E&M: 85686 Init Hosp L3 Objective Data Vital Signs: [...] 84.0 H, Lymph % (Auto) 6.2 L, Overton % (Auto) 9.4, Eos % (Auto) 0.0, [...] H, Alkaline Phosphatase 85, Total Creatine Kinase 78423 H, Troponin I High Sens 3604 H*, [...] 84.0 H, Lymph % (Auto) 6.2 L, Overton % (Auto) 9.4, Eos % (Auto) 0.0, [...] changes. 04/12/23 1605 <Electronically signed by Jack Fullre MD> Cosigner Signature (if applicable): CC: Dr. Jack Fuller MD; Dr. Angela Mera MD~ Signed [facility] Work Phone: 1(309) 452-231401-25-2024 Discharge summary Author William Padilla [facility] April 12, 2023 3:00pm Note Date/Time April 12, 2023 1 0:47am [facility] Medical Records Department [address] [place] [address] Emergency Department Summary 04/12/23 MR#: [id number] Acct: [id number] Name: FREDY BOX Rep #:[id number] : 1945 78 From: William Gutierrez PCP: Dr. Angela Mera MD Status:ADM IN Location: [address] History of Present Illness Chief Complaint: Weakness [facility] Medical History (Updated 04/12/23 @ 14:[address] William Padilla, DO) CVA (cerebral vascular accident) Dementia High [...] Nasal Cannula Oxygen Flow Rate (L/min) 2 MDM MDM MDM Narrative Medical decision making narrative: HISTORY [...] obtained from others: EMS Consults: Internal medicine [facility] Narrative: Patient was initially hypotensive otherwise hemodynamically [...] 84.0 H Lymph % (Auto) 6.2 L Overton % (Auto) 9.4 Eos % (Auto) 0.0 [...] MCHC RDW Std Deviation RDW Coeff of Ees Plt Count MPV Immature Gran % (Auto) Neut % (Auto) Lymph % (Auto) Overton % (Auto) Eos % (Auto) Baso % [...] H Alkaline Phosphatase 85 Total Creatine Kinase 96685 H Troponin I High Sens 3604 H* [...] Discharge Plan Disposition Disposition: Acute Care Hospital [facility] Discharge Date/Time: 04/12/23 13:32 What to do if you have Problems For any increased pain, shortness of breath, bleeding, nausea or vomiting, chestpain, or any unexpected problems, contact your Primary Care Provider. Call [facility] ([phone]) or report to the closest Emergency Room. Call 911 if necessary. 04/12/23 1500 <Electronically signed by iWlliam Padilla DO> Cosigner Signature (if applicable): CC: Dr. Angela Mera MD ~ Signed [facility] Work Phone: 1(171) 120-444502-01-2022 History of Present illness Narrative* Rosa Khan [...] pressure checked on vis it with Dr. Troncoso yesterday and his blood pressure was elevated [...] The primary encounter diagnosis was Atherosclerosis of [place] coronary artery of [place] heart without angina pectoris. Diagnoses of Essential (primary) hypertension and Mixed hyperlipidemia were alsopertinent to this visit. Assessment 1. CAD, 3 stents to mid LAD in 2010, no angina 2. Hyperlipidemia, on statin 3. Hypertension, elevated in office today 4. Short-term memory loss Plan 1. Stop hydrochlorothiazide and start losartan HCT 50/12.5 mg daily for hypertension 2. We will check with Dr. Troncoso's office to see if she has recent [...] file as of 04/19/2021. [facility] Instructions* Patient Instructions* Kimmie Marcelino [...] Pepper, herbs, and spices; vinegar, lemon, or augustine juice Low-fat frozen desserts (yogurt, sherbet, fruit [...] to make changes. Last Reviewed: February 2020 [facility] Medical Review Board Mira Luis Gerard MS, RD, LDN Updated: 04/21/2020 [employer] [facility] Future App[facility]ments Appointment Date:08/01/2023 10:30:00 AM Scheduled Provider:ANGELA MERA MD Location:[facility] Appointment Type:PC OV [facility] Evaluation + Plan note Future Appointments Appointment Date:06/01/2023 01:30:00 PM Scheduled Provider:ANGELA MERA MD Location:[facility] Appointment Type:PC OV Follow Up Appointment Date:08/01/2023 10:30:00 AM Scheduled Provider:ANGELA MERA MD Location:[facility] Appointment Type:PC OV Diagnostic Tests Pending * Urine Culture 05/18/23 [facility] + Plan note Future Appointments Appointment Date:07/04/2023 10:30:00 AM Scheduled Provider: Location:[facility] Appointment Type:PC Nurse Lab Appointment Date:07/13/2023 10:30:00 AM Scheduled Provider:ANGELA MERA MD Location:[facility] Appointment Type:PC OV Appointment Date:09/18/2023 01:30:00 PM Scheduled Provider:ANGELA MERA MD Location:[facility] Appointment Type:PC OV Future Scheduled Tests Laboratory* Uric Acid 06/12/23 * Complete Blood Count 06/12/23 * Complete Metabolic Panel 06/12/23 [facility] + Plan note Future Appointments Appointment Date:07/13/2023 10:30:00 AM Scheduled Provider:ANGELA MERA MD Location:[facility] Appointment Type:PC OV Appointment Date:09/18/2023 01:30:00 PM Scheduled Provider:ANGELA MERA MD Location:[facility] Appointment Type:PC OV Future Scheduled Tests Laboratory* B-Type Natriuretic Peptide 06/29/23 * Uric Acid 06/12/23 * Complete Blood Count 06/12/23 * Lipid Profile 06/29/23 * Complete Metabolic Panel 06/12/23 [facility] evaluation + Plan note Future Appointments Appointment Date:12/19/2023 01:30:00 PM Scheduled Provider:ANGELA MERA MD Location:[facility] Appointment Type:PC OV Future Scheduled Tests Laboratory* B-Type Natriuretic Peptide 06/29/23 * Uric Acid 06/12/23 * Complete Blood Count 06/12/23 * Lipid Profile 06/29/23 * Complete Metabolic Panel 06/12/23 [facility] Evaluation + Plan note Future Appointments Appointment Date:12/19/2023 01:30:00 PM Scheduled Provider:ANGELA MERA MD Location:[facility] Appointment Type:PC OV Future Scheduled Tests Laboratory* B-Type Natriuretic Peptide 06/29/23 * Complete Blood Count 11/29/23 * Sedimentation Rate Automated 11/29/23 * Complete Metabolic Panel 11/29/23 [facility] + Plan note Future Appointments Appointment Date:04/23/2024 01:00:00 PM Scheduled Provider:ANGELA MERA MD Location:[facility] Appointment Type:PC OV Future Scheduled Tests Laboratory* B-Type Natriuretic Peptide 06/29/23 * Complete Blood Count 11/29/23 * Sedimentation Rate Automated 11/29/23 * Complete Metabolic Panel 11/29/23 [facility] evaluation + Plan note Future Appointments Appointment Date:10/21/2024 01:30:00 PM Scheduled Provider:ANGELA MERA MD Location:[facility] Appointment Type:PC OV Appointment Date:12/11/2024 11:00:00 AM Scheduled Provider:ANGELA MERA MD Location:[facility] Appointment Type:PC OV Future Scheduled Tests Laboratory* Complete Blood Count 11/29/23 * Lipid Profile 10/21/24 * Sedimentation Rate Automated 11/29/23 * Complete Metabolic Panel 11/29/23 * Complete Metabolic Panel 10/21/24 [facility] evVelomedixation + Plan note Future Appointments Appointment Date:10/21/2024 01:30:00 PM Scheduled Provider:ANGELA MERA MD Location:[facility] Appointment Type:PC OV Appointment Date:12/11/2024 11:00:00 AM Scheduled Provider:ANGELA MERA MD Location:[facility] Appointment Type:PC OV Future Scheduled Tests Laboratory* Complete Blood Count 11/29/23 * Complete Blood Count 08/20/24 * Lipid Profile 10/21/24 * Sedimentation Rate Automated 11/29/23 * Complete Metabolic Panel 11/29/23 * Complete Metabolic Panel 10/21/24 [facility] evSunlight Foundation + Plan note Future Appointments Appointment Date:10/21/2024 01:30:00 PM Scheduled Provider:ANGELA MERA MD Location:[facility] Appointment Type:PC OV Appointment Date:12/11/2024 11:00:00 AM Scheduled Provider:ANGELA MERA MD Location:[facility] Appointment Type:PC OV Future Scheduled Tests Laboratory* Complete Blood Count 11/29/23 * Complete Blood Count 08/20/24 * Sedimentation Rate Automated 11/29/23 * Complete Metabolic Panel 11/29/23 [facility] evaluation + Plan note Future Appointments Appointment Date:11/03/2024 01:40:00 PM Scheduled Provider:DONNA SANCHEZ Location:UROLOGY Appointment Type:URO OV Physical 20 min Appointment Date:11/04/2024 01:30:00 PM Scheduled Provider:ANGELA MERA MD Location:[facility] Appointment Type:PC OV Hospital Follow-Up Appointment Date:11/07/2024 09:05:00 AM Scheduled Provider: Location:Main [place] Appointment Type:[facility] Appointment Date:12/11/2024 11:00:00 AM Scheduled Provider:ANGELA MERA MD Location:[facility] Appointment Type:PC OV Appointment Date:03/06/2025 01:30:00 PM Scheduled Provider:ANGELA MERA MD Location:[facility] Appointment Type: OV Future Scheduled Tests Laboratory* Complete Blood Count 11/29/23 * Complete Blood Count 08/20/24 * Sedimentation Rate Automated 11/29/23 * Complete Metabolic Panel 11/29/23 [facility] Evaluation note* Diagnosis Atherosclerosis of [place] coronary artery of [place] heart without angina pectoris- Primary Essential (primary) hypertension Unspecified essential hypertension Mixed hyperlipidemia [facility] Diagnosis Non-pressure chronic ulcer of other part of right lower leg with fat layer exposed PAD (peripheral artery disease) Unspecified peripheral vascular disease documented in this encounter [facility] note* Diagnosis Mild cognitive impairment of uncertain or unknown etiology [facility]No assessment information available [facility] Work Phone: Evaluation note* Diagnosis Onset Date Resolution Status DIAN (acute kidney injury) ac [place] Cardiac enzymes elevated acu te [id number] acute PSVT (paroxysmal supraventricular tachycardia) acute Rhabdomyolysis acute Hypertension chronic [facility] Work Phone: Evaluation note* Diagnosis Onset Date Resolution Status [id number] chronic PSVT (paroxysmal supraventricular tachycardia) chronic DIAN (acute kidney injury) re solved Cardiac enzymes elevated res olved Rhabdomyolysis resolved [id number] chronic Essential hypertension chron ic Hyperlipidemia chronic MARTIN (dyspnea on exertion) ac [place] Fatigue acute [id number] chronic Essential hypertension chron ic Hyperlipidemia chronic [facility] Work Phone: Evaluation note* Diagnosis Onset Date Resolution Status Admit Date Coronary arteriosclerosis af ter percutaneous transluminal coronary angiopla chronic September 18, 2024 1:16pm Hyperlipidemia chronic September 18, 2024 1:16pm [facility] Work Phone: Hospital course Narrative No data available for this section [facility] Hospital Discharge instructions No data available for this section [facility] Progress note No data available for this section [facility] Reason for referral (narrative)* Procedure Authorization (Routine) - Closed Specialty Diagnoses / Procedures Referred By Contac t Referred To Contact Radiology Diagnoses Mild cognitive impairment of uncertain or unknown etiology Procedures MRI Brain Without IV Contrast Provider, MD Milli [address] [place], [place] [address] [address] [address] Referral ID Status Reason Start Date Expiration Date Visits Re quested Visits Authorized [id number] Closed 12/29/2021 03/18/2022 1 [facility]No reason for referral [facility] Work Phone: Reason for visit Narrative* Procedure Authorization (Routine) - Closed Specialty Diagnoses / Procedures Referred By Contac t Referred To Contact Radiology Diagnoses Mild cognitive impairment of uncertain or unknown etiology Procedures MRI Brain Without IV Contrast Provider, MD Milli [address] [place], [place] [id number] [address] [address] Referral ID Status Reason Start Date Expiration Date Visits Re quested Visits Authorized [id number] Closed 12/29/2021 03/18/2022 1 1 [facility] Hospital Course * Ben Simental MD [...] Where can you learn more? Go to [email or web address] Enter U654 in the search box to learn more about High-Fiber Diet: Care Instructions. Current as of: November 06, 2018 Content Version: 12.3 [employer]. Care instructions adapted under license by your healthcare professional. If you have questions about a medical condition or this instruction, always ask your healthcare professional. [employer] disclaims any warranty or liability for your [...] FoundDocuments on File Type Date Recorded Patient Promotions Specialist Expl anation Advance Directives and Livin g Will Advance Directives and Livin g Will 12/13/2010 3:51 PM Power of Aircraft Armament Mechanic Latest Code Status on File Code Status Date Activated Date Inactivated Comments Full Code 02/19/2019 9:11 AM Full Code 12/14/2015 1:10 PM 12/14/2015 10:45 PM Full Code 12/13/2010 3:43 PM 12/14/2010 9:33 PM Documents on File Type Date Recorded Patient Promotions Specialist Expl anation Advance Directives and Livin g Will Advance Directives and Livin g Will 12/13/2010 3:51 PM Power of Aircraft Armament Mechanic Latest Code Status on File Code Status Date Activated Date Inactivated Comments Full Code 02/19/2019 9:11 AM 02/19/2019 5:28 PM Full Code 12/14/2015 1:10 PM 12/14/2015 10:45 PM Full Code 12/13/2010 3:43 PM 12/14/2010 9:33 PM Latest Code Status on File Code Status Date Activated Date Inactivated Comments Full Code 02/19/2019 9:11 AM 02/19/2019 5:28 PM Documents on File Type Date Recorded Patient Promotions Specialist Expl anation Advance Directives and Livin g Will Power of Aircraft Armament Mechanic Advance Directives and Livin g Will 12/13/2010 3:51 PM Documents on File Type Date Recorded Patient Promotions Specialist Expl anation Advance Directives and Living Will Power of Aircraft Armament Mechanic Documents on File Type Date Recorded Patient Promotions Specialist Expl anation Advance Directives and Livin g Will Power of Aircraft Armament Mechanic DNR Documentation Advance Directives and Livin g Will 12/13/2010 3:51 PM Documents on File Type Date Recorded Patient Promotions Specialist Expl anation Advance Directives and Living Will Power of Aircraft Armament Mechanic Advance Directive Response Recorded Date/ Time Living Will Yes April 12 10:51am Power of Aircraft Armament Mechanic Yes April 12, 2023 10:51am Name of Medical Power of Aircraft Armament Mechanic April 12, 2023 10:51am Advance Directive Response Recorded Date/ Time Name of Medical Power of Aircraft Armament Mechanic April 12, 2023 2:09pm Living Will Yes April 12 2:09pm Power of Aircraft Armament Mechanic Yes April 12, 2023 2:09pm Advance Directive Response Recorded Date/ Time Name of Medical Power of Aircraft Armament Mechanic April 12, 2023 3:09pm Living Will Yes April 12 3:09pm Power of Aircraft Armament Mechanic Yes April 12, 2023 3:09pm Advance Directive Response Recorded Date/ Time Do you have a Healthcare Power of Aircraft Armament Mechanic? No October 19, 2024 7:44am Reason for Referral Status Reason Specialty Diagnoses / Procedures Referre d By Contact Referred To Contact Closed Radiology Diagnoses Kidney stone Microhematuria Procedures CT Abdomen Pelvis With and Without IV Contrast Ginny Hylton, GUERRERO JUDO TEACHER [address] [facility] [address] [place] [address] General Rad[address] [place] [id number] Specialty Diagnoses / Procedures Referred By Contac t Referred To Contact Diagnoses Non-pressure chronic ulcer of other part of right lower leg with fat layer exposed PAD (peripheral artery disease) Procedures VAS ANKLE BRACHIAL INDEX Darion Bass, [address] [address] Darion Bass, [address] [address] Referral ID Status Reason Start Date Expiration Date Visits Re quested Visits Authorized [id number] Closed 11/23/2021 11/23/2022 1 1 Summary Purpose Family History No Family History Records Found Relationship Condition Age at Onset Recorded Date/T nicolette father Myocardial infarction Unknown brother Malignant neoplasm Unknown sister Malignant neoplasm Unknown mother Disorder of lung Unknown Chief Complaint and Reason for Visit Chief Complaint Admit Date 9 M FU September 18, 2024 1:16p m INT LABS September 22, 2024 9:13a m abd pain October 19, 2024 7:2 0am Reason for Visit Admit Date Heart failure with preserved ejection fr action September 18, 2024 1:16pm Coronary arteriosclerosis af ter percutaneous transluminal coronary angiopla September 18, 2024 1:16pm Essential hypertension September 18, 2024 1: 16pm Hyperlipidemia September 18, 2024 1:16p m Chief Complaint RHABDOMYOLYSIS NONST KATALINA Chief Complaint RHABDOMYOLYSIS NONST [place] RHABDOMYOLYSIS NONSTEMI RHABDOMYOLYSIS NONSTEMI RHABDOMYOLYSIS NONSTEMI RHABDOMYOLYSIS NONSTEMI RHABDOMYOLYSIS NONSTEMI RHABDOMYOLYSIS NONSTEMI RHABDOMYOLYSIS NONSTEMI RHABDOMYOLYSIS NONSTEMI RHABDOMYOLYSIS NONSTEMI Reason for Visit DIAN (acute kidney in jury) Cardiac enzymes elevated [id number] PSVT (paroxysmal supraventricular tachycardia) Rhabdomyolysis Hypertension Chief Complaint RHABDOMYOLYSIS NONST [place] RHABDOMYOLYSIS NONSTEMI RHABDOMYOLYSIS NONSTEMI RHABDOMYOLYSIS NONSTEMI RHABDOMYOLYSIS NONSTEMI RHABDOMYOLYSIS NONSTEMI RHABDOMYOLYSIS NONSTEMI RHABDOMYOLYSIS NONSTEMI RHABDOMYOLYSIS NONSTEMI RHABDOMYOLYSIS NONSTEMI ADMISSION EXAM LABWORK ADMISSION EXAM LABWORK LAB WORK [facility] 04/17/23 F/U PER PCP INT LABS Reason for Visit [id number] PSVT (paroxysmal supraventricular tachycardia) DIAN (acute kidney injury) Cardiac enzymes elevated Rhabdomyolysis [id number] Essential hypertension Hyperlipidemia MARTIN (dyspnea on exertion) Fatigue [id number] Essential hypertension Hyperlipidemia Chief Complaint Admit Date 9 M FU September 18, 2024 1:16p m Reason for Visit Admit Date Coronary arteriosclerosis af ter percutaneous transluminal coronary angiopla September 18, 2024 1:16pm Hyperlipidemia September 18, 2024 1:16p m Chief Complaint Admit Date 9 M FU September 18, 2024 1:16p m INT LABS September 22, 2024 9:13a m Additional Source Comments Reason for Visit (unrecogniz ed section and content) Status Reason Specialty Diagnoses / Procedures Referred By Contact Referred To Contact Authorized Diagnoses History of colon polyps Z86.010 (ICD-10-CM) - V12.72 (ICD-9-CM) - History of colon polyps Procedures Case Request Operating Room: COLONOSCOPY DIAGNOSTIC NV COLONOSCOPY FLX DX W/COLLJ SPEC WHEN PFRMD [id number] - NV COLONOSCOPY FLX DX W/COLLJ SPEC WHEN PFRMD Tara Ordoñez PA [address] [place] [id number] Reason Comments Information or Advice only Status Reason Specialty Diagnoses / Procedures Referre d By Contact Referred To Contact Closed Radiology Diagnoses Kidney stone Microhematuria Procedures CT Abdomen Pelvis With and Without IV Contrast Ginny Hylton APRN JUDO TEACHER [address] [facility] [address] [place] [address] General Radiology [address] [place] [address] Reason Comments Medication Refill Reason Comments Follow-up 12 month f/u Specialty Diagnoses / Procedures Referred By Contac t Referred To Contact Diagnoses Non-pressure chronic ulcer of other part of right lower leg with fat layer exposed PAD (peripheral artery disease) Procedures VAS ANKLE BRACHIAL INDEX Darion Bass, DO [address] [place] [phone] Phone: Fax: Darion Bass, DO [address] [place] [phone] Phone: Referral ID Status Reason Start Date Expiration Date Visits Re quested Visits Authorized [id number] Closed 11/23/2021 11/23/2022 1 1 Result QuickNote - Ginny Hylton APRN CNP - 03/23/2020 7:30 AM EST Miscellaneous Notes (unrecog nized section and content) This is preappt imaging, we will discuss at upcoming urology appt. documented in this encounter Care Teams (unrecognized sec tion and content) Class B Driver Relationship Specialty Start Date End Date Ramos Lisa DO [address] [place] [address] PCP - General Family Medicine 02/05/21 Jarrell Gray MD Physician Urology 07/17/18 Class B Driver Relationship Specialty Start Date End Date Rosa Khan MD [address] [place] [phone] Consulting Physician Cardiology 03/18/20 Class B Driver Relationship Specialty Start Date End Date Ramos Lisa DO [address] [place] [address] PCP - General Family Medicine 02/05/21 Class B Driver Relationship Specialty Start Date End Date July, DO Kiarra [address] [facility] [place] [address] PCP - General Internal Medicine 12/05/21 Class B Driver Relationship Specialty Start Date End Date July, Kiarra Rebollar DO [address] [place] [phone] PCP - General Internal Medicine 10/25/21 Rosa Khan MD [address] [place] [phone] Consulting Physician Cardiology 03/18/20 Class B Driver Relationship Specialty Start Date End Date July, DO Kiarra [address] [facility] [place] [address] PCP - General Internal Medicine 12/05/21 Team [...] Provider, Referrin g Provider Active Yojana Ugarte CLIENT RELATION SPECIALIST, CLIENT RELATION SPECIALIST-C Attending Provider Active Team Status: Inactive Member Role Status Dates Dr. Angela Mera MD Primary Care Provider Active Angélica Bronson CLIENT RELATION SPECIALIST, CLIENT RELATION SPECIALIST-C Attending Provider Active Team Status: Inactive Member Role Status Dates Dr. Angela Mera MD Primary Care Provider Active Dr. Heath Mitchell MD Attending Provider Active Team Status: Inactive Member Role Status Dates Dr. Angela Mera MD Primary Care Provider, Referrin g Provider Active Lakesha BAKER PA Attending Provider Active Team Status: Active [...] Mera MD Primary Care Provider Active Lakesha BAKER PA Attending Provider, Referr ing Provider Active [...] September 22, 2024 End: September 22, 2024 Team Status: Inactive Member Role/Relationship Status Dates Dr. Angela Mera MD Primary Care Provider Active Start: October 19, 2024 End: October 19, 2024 Dr. Juan M Hirsch DO Emergency Provider Activ e Start: October 19, 2024 End: October 19, 2024 (unrecognized sect ion and content) No Status Records FoundNo Status Records FoundNo Status Records FoundNo Status Records FoundNo Status Records FoundNo Status Records Found INFORMATION SOURCE (unrecogn ized section and content) DATE CREATED AUTHOR 01/15/2022 [facility] DATE CREATED AUTHOR AUTHOR'S ORGANIZ ATION 08/27/2022 [facility] DATE CREATED AUTHOR AUTHOR'S ORGANIZ ATION 10/12/2023 [facility] ([place]) DATE CREATED AUTHOR AUTHOR'S ORGANIZ ATION 10/25/2024 [facility] DATE CREATED AUTHOR AUTHOR'S ORGANIZ ATION 11/02/2024 [facility] DATE CREATED AUTHOR AUTHOR'S ORGANIZ ATION 11/06/2024 [facility] Goals (unrecognized section and content) Goals may [...] BE BASED ON THE PRIMARY CLINICAL RECORDS. [facility] [employer], [facility]. provides no warranty or guarantee of the accuracy or completeness of information in this document.
[2024-11-07 20:20] VITALS: BP 148/90; PULSE 72; RESP 16; RESP 18; TEMP 36.6; O2SAT 95; O2SAT 98; BMI 27.1
--- NOTE | 2024-11-07 20:49 | HP.PCM_ITS ---
HPI - General General Date of Admission: 11/07/24 Date of Service: 11/10/24 Chief Complaint: Here for rehabilitation. HPI Narrative CLAUDIO WELLER, is a 79 Male who presents with followin10/27/2024 Admit [facility]. WBC 12.3, urinalysis c/w uti, K 5.4. Creatinine 2.32, respiratory panel negative, blood culture pending, urine culture pending. CT showed right ureteral stent, multiple right kidney stones, right distal ureteral stone. Zosyn IV for urinary tract infection. Consult Urology for right ureteral stone. IV fluids for acute kidney injury. Lokelma, calcium gluconate for hyperkalemia. 10/29/2024 Nephrology recommended IVF for acute kidney injury. Consider ID for yeast in blood culture. 10/29/2024 Blood cultures 2/2 bottles with yeast. Urology feels right ureteral stent draining okay. Kim catheter placed. ID recommend Mycamine for sepsis, yeast fungemia, pyelonephritis. Fever ongoing, blood culture repeated. If yeast sensitive to Diflucan, switch to Diflucan for east of administration. Pyridium for bladder spasm. Creatinine worsened to 3.3. 10/30/2024 Mycamine IV for sepsis, fungemia, pyelonephritis. Right ureteral stent for right ureteral stone. Pyridium for bladder spasm. Tamsulosin for urinary retention, voiding trial. IV fluids for acute kidney injury. 10/31/2024 Fever persists. Diflucan 400mg daily x 2 weeks for sepsis, candidal fungemia. Ophth outpatient to rule out fungal eye infection. Kim removed. Creatinine 1.64 for acute kidney injury. 11/01/2024 Repeat blood culture negative, Previous blood culture C. Albicans. Post void residual negative. Creatinine 1.37. 11/02/2024 Echo negative vegetations. Fever, myalgia. Creatinine 1.33. 11/03/2024 CT abdomen/pelvis negative abscess, hydronephrosis improving. Fever persists. Creatinine 1.39. 11/04/2024 Kim out, urologic intervention right ureteral stent 11/07/2024. Stop IV fluids. Add amlodipine for HTN. 11/05/2024 Urology right ureteral stent removal, lithotripsy 11/07/2024. 11/07/2024 Urology removed right ureteral stent, lithotripsy. 11/07/2024 Admit to TCU with debility, here for rehabilitation, strengthening, prior to discharge home with . [facility] Medical History (Updated 11/07/24 @ 21:[address] Andrzej Aguilar MD) DIAN (acute kidney injury) Gout Essential hypertension Hyperlipidemia PSVT (paroxysmal supraventricular tachycardia) Coronary arteriosclerosis after percutaneous transluminal coronary angioplasty (PTCA) Rhabdomyolysis Dementia CVA (cerebral vascular accident) Kidney calculi Home Medications ?Medication ?Instructions ?Recorded ?Last Taken ?Type allopurinol 300 mg tablet 300 mg PO DAILY gout 4 10/18/24 History aspirin 81 mg capsule 81 mg PO DAILY heart health 04/12/23 10/18/24 History atorvastatin 20 mg tablet 20 mg PO DAILY cholesterol 0 04/12/23 10/18/24 History donepezil 10 mg tablet 10 mg PO QHS dementia 10/18/24 History memantine 5 mg tablet 5 mg PO BID dementia 4 10/18/24 History tamsulosin 0.4 mg capsule 0.4 mg PO DAILY urination 10/18/24 History timolol maleate 0.5 % eye drops 1 drp ophthalmic (eye) BID eye 04/12/23 10/18/24 History health losartan 25 mg tablet 25 mg PO DAILY #90 tabs 03/08/0910/18/24 Rx vitamin B complex 1 tab PO DAILY supplement 10/18/24 History buspirone 7.5 mg tablet 7.5 mg PO BID anxiety 10/18/24 History empagliflozin 10 mg tablet 10 mg PO QAM #90 tabs 09/1110/18/24 Rx (Jardiance) metoprolol succinate 25 mg 25 mg PO BID BP 12/12/23 History tablet,extended release 24 hr latanoprost 0.005 % eye drops 1 drp ophthalmic (eye) Q HS eyes 09/18/24 10/18/24 History benzonatate 100 mg capsule 100 mg PO Q8H PRN PRN cough 10/19/24 Unknown History cyanocobalamin-liver extract tablet 1 tab PO BID suppl ement 10/19/24 10/18/24 History Held on 11/07/24. Instructions: hold while on TCU fluoride (sodium) 1.1 % dental gel 1 applic PO QHS 06/10 Unknown History fluticasone furoate 100 1 ea inhalation DAILY 10/18/24 History mcg-vilanterol 25 mcg/dose inhalation powder (Breo Ellipta) garlic 580 mg capsule 48 mg PO DAILY supplement 10/18/24 History omega-3s 300 fm-kbx-hic-other 1 cap PO BID supplement 10/19/24 10/18/24 History evpdd4t-knse oil 1,000 mg capsule ([place]-3 Fish Oil) CPAP - Continuous Positive Airway 11/10/24 Unknown Hi story Pressure([facility] INFORMATIONAL USE ONLY) Allergy/AdvReac Type Severity Reaction Status Date / Time No Known Allergies Allergy Verified 10/19/24 07:20 Family History Father , Age 68 Myocardial infarction Brother Cancer Sister Cancer Mother Lung disease Surgical History History of heart artery stent (~2010) Social History (Updated 11/07/24 @ 20:[address] Andrzej Aguilar MD) household members: spouse Smoking Status: Never smoker second hand exposure: Yes alcohol intake: never substance use type: does not use caffeine: Yes Type: carbonated beverages and coffee ROS Constitutional Constitutional: Reports weakness; Denies chills, fever(s) or weight gain ENT HEENT: Denies headache(s), nasal congestion or nasal discharge Cardiovascular Cardiovascular: Denies chest pain or palpitations Respiratory/Chest Respiratory/Chest: Denies cough, excessive phlegm production or shortness of breath with exertion Gastrointestinal Gastrointestinal: Denies abdominal pain, nausea or vomiting Genitourinary Genitourinary: Denies dysuria Musculoskeletal Musculoskeletal: Denies joint pain or joint swelling Integumentary Integumentary: Denies rash or wounds Neurologic Neurologic: Denies focal weakness, numbness or tingling Psychiatric Psychiatric: Denies anxiety, auditory hallucinations, depression, homicidal ideation or suicidal ideation Vital Signs Vital Signs Vital Signs: 11/07/24 20:20 Temperature 97.9 F Temperature Source Oral Pulse Rate 72 Respiratory Rate 18 Blood Pressure 148/90 H Blood Pressure Mean 109 Blood Pressure Source Monitor Blood Pressure Position Semi-Fowlers Blood Pressure Location Right Arm Pulse Ox 95 Oxygen Delivery Method Room Air Weight Weight: 80.921 kg Body Mass Index (BMI) 27.1 Physical Exam Const alert General Appearance: cooperative HEENT normocephalic Eyes PERRL and EOMs intact bilaterally Neck supple, no JVD and no carotid bruits Resp normal respiratory effort, normal air movement and clear to auscultation bilaterally Cardio regular rate and regular rhythm GI normal to inspection, nondistended, normoactive bowel sounds, non-tender and non-distended Extremity normal capillary refill General Extremity: Negative for edema Skin no rashes or lesions noted General Skin Exam: no breakdown Psych affect normal Appearance: appropriate Results Lab / Micro Data 11/10/24 06:05 11/08/24 06:45 Assessment & Plan Assessment/Plan (1) Debility: (2) Sepsis: (3) Fungemia: (4) DIAN (acute kidney injury): (5) Right ureteral stone: (6) Pyelonephritis: (7) Hyperkalemia: (8) Dementia, unspecified, without behavioral disturbance: (9) Depression: (10) Chronic heart failure with preserved ejection fraction (HFpEF): (11) Essential hypertension: (12) Hyperlipidemia: QUALIFIERS: Hyperlipidemia type: mixed hyperlipidemia Qualified Code(s): E78.2 - Mixed hyperlipidemia (13) BPH (benign prostatic hyperplasia): (14) Gout: (15) Glaucoma: (16) Anxiety: (17) Asthma: PLAN: Plan 79 year old male with below past medical history hospitalized for sepsis, ghada fungemia, pyelonephritis, complicated by right ureteral stone, right hydronephrosis, acute kidney injury, hyperkalemia, admitted to TCU with debility, here for rehabilitation, strengthening, prior to discharge home with . * Debility - PT/OT. * Pain - Tylenol 1000mg q6 prn pain (1-10). * Bowel - senna/colace 1 tablet bid, Magnesium citrate 300mL daily prn. * Adult immunization - Administer pneumonia vaccine, covid vaccine, flu vaccine as appropriate. * DVT prophylaxis - Lovenox 30mg sc daily. * Asthma - Albuterol 2 puffs qhs. * Gout - Allopurinol 300mg daily. * Hypertension - Metoprolol succinate 25mg bid, Amlodipine 5mg daily. * Vitamin C deficiency - Vitamin C 500mg daily. * Coronary artery disease s/p stent - Metoprolol succinate 25mg bid, Aspirin 81mg daily. * Hyperlipidemia - Atorvastatin 20mg qhs. * Cough - Tessalon perles 100mg q8 prn. * Alzheimer Disease - Donepezil 10mg qhs, Memantind 5mg bid. 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 * Glaucoma - Latanoprost 1gtt ou qhs, Timolol 1gtt ou bid. * BPH - Tamsulosin 0.4mg daily. * Leg cramps - Vitamin B complex daily. The following psychotropic medication was present on admission: Buspar 7.5mg bid. Psychotropic medication therapy is indicated for a diagnosis of: Anxiety. Based on my clinical evaluation, continuation of the medication is necessary at this time. Gradual dose reduction plan (select one): ____ GDR will be attempted. Will monitor patient symptoms and behaviors in response to GDR. __x__ GRD contraindicated. Reason contraindicated: stable chronic cut out marker use.
[2024-11-07 21:57] VITALS: PULSE 72
[2024-11-07] MEDS: Metoprolol(XL)Succ 25 MG Tablet PO (21:57)
[2024-11-07] MEDS: Memantine Hydrochloride 5 MG Tablet PO (21:58)
[2024-11-07] MEDS: Timolol 0.5% 5ML OPTH.BTL 1 DRP EACH EYE (21:59)
[2024-11-07] MEDS: Albuterol IH (6.7 GM) 1 PUFF INHALER 2 PUFF INHALATION (22:04)
[2024-11-07] MEDS: Latanoprost 0.005% 1 Bottle 1 DRP EACH EYE (22:06)
[2024-11-08 07:21] LABS: Hematocrit 37.3 % (40-54); Hemoglobin 12.5 g/dL (13.0-16.5); Immature Granulocytes Count 0.150 X10^3/uL (0.0-0.0); Mean Corp Hgb Conc 33.5 g/dL (32-36); Mean Corpuscular Volume 103.3 fL (80-94); Mean Platelet Vol. 9.1 fl (6.2-12.0); NRBC Flagged by Analyzer 0 % (0-5); POSITIVE DIFFERENTIAL YES; Platelet Count 399 K/mm3 (150-450); RBC Distribution Width CV 13.2 % (11.6-14.6); RBC Distribution Width SD 50.8 fl (35.1-43.9); Red Blood Count 3.61 M/mm3 (4.6-6.2); White Blood Count 17.0 K/mm3 (4.4-11.0)
[2024-11-08 07:57] LABS: Anion Gap 15 (5-15); BUN 42 mg/dL (4-19); BUN/Creat Ratio 29.1 RATIO (10-20); Calcium,Total 9.0 mg/dL (7.6-11.0); Carbon Dioxide 20.2 mmol/L (21.0-32.0); Chloride 103 mmol/L (98-108); Estimated Creatinine Clearance 40.24 ml/min (50-250); Glucose 155 mg/dL (70-99); Potassium 4.5 mmol/L (3.3-5.1)
[2024-11-08 10:23] VITALS: BP 145/82; PULSE 73; RESP 17; TEMP 36.3; O2SAT 95
[2024-11-08] MEDS: Vitamin B Comp W-C Capsule 1 CAP PO (10:33)
[2024-11-08] MEDS: Memantine Hydrochloride 5 MG Tablet PO ×2 (10:35→21:27)
[2024-11-08 10:36] VITALS: PULSE 73
[2024-11-08] MEDS: Metoprolol(XL)Succ 25 MG Tablet PO ×2 (10:36→21:27)
[2024-11-08] MEDS: Timolol 0.5% 5ML OPTH.BTL 1 DRP EACH EYE ×2 (10:36→21:23)
[2024-11-08] MEDS: Tuberculin,Purif.prot.deriv. 50 TU/ML Vial 0.1 ML ID (10:37)
--- NOTE | 2024-11-08 15:43 | NURSING ---
Patient c/o loose stools and requesting senna to be d/c'd. Call placed to Dr. Aguilar. New order received for senna PRN. VORB.
[2024-11-08] MEDS: Ensure Plus High Protein 120 ML LIQUID PO (18:19)
[2024-11-08 21:19] VITALS: BP 130/73; PULSE 74; O2SAT 97
[2024-11-08] MEDS: Albuterol IH (6.7 GM) 1 PUFF INHALER 2 PUFF INHALATION (21:20)
[2024-11-08] MEDS: Latanoprost 0.005% 1 Bottle 1 DRP EACH EYE (21:22)
[2024-11-08 21:27] VITALS: BP 130/73; PULSE 74
[2024-11-09 04:40] VITALS: PULSE 74; RESP 16; O2SAT 97
[2024-11-09 06:17] LABS: Hematocrit 36.5 % (40-54); Hemoglobin 12.2 g/dL (13.0-16.5); Immature Granulocytes Count 0.230 X10^3/uL (0.0-0.0); Mean Corp Hgb Conc 33.4 g/dL (32-36); Mean Corpuscular Volume 104.0 fL (80-94); Mean Platelet Vol. 9.1 fl (6.2-12.0); NRBC Flagged by Analyzer 0 % (0-5); Platelet Count 418 K/mm3 (150-450); RBC Distribution Width CV 13.2 % (11.6-14.6); RBC Distribution Width SD 50.5 fl (35.1-43.9); Red Blood Count 3.51 M/mm3 (4.6-6.2); White Blood Count 15.5 K/mm3 (4.4-11.0)
[2024-11-09 09:12] VITALS: BP 129/78; PULSE 72; RESP 18; TEMP 36.6; O2SAT 94
[2024-11-09] MEDS: Ensure Plus High Protein 120 ML LIQUID PO ×3 (09:17→16:40)
[2024-11-09 09:18] VITALS: PULSE 72
[2024-11-09] MEDS: Vitamin B Comp W-C Capsule 1 CAP PO (09:18)
[2024-11-09] MEDS: Memantine Hydrochloride 5 MG Tablet PO ×2 (09:18→21:13)
[2024-11-09] MEDS: Metoprolol(XL)Succ 25 MG Tablet PO ×2 (09:18→21:14)
[2024-11-09] MEDS: Timolol 0.5% 5ML OPTH.BTL 1 DRP EACH EYE ×2 (09:20→21:07)
[2024-11-09] MEDS: Albuterol IH (6.7 GM) 1 PUFF INHALER 2 PUFF INHALATION (21:05)
[2024-11-09] MEDS: Latanoprost 0.005% 1 Bottle 1 DRP EACH EYE (21:08)
[2024-11-09 21:14] VITALS: BP 140/75; PULSE 66
[2024-11-09 23:55] VITALS: O2SAT 97
[2024-11-10 06:31] LABS: Hematocrit 37.7 % (40-54); Hemoglobin 12.7 g/dL (13.0-16.5); Immature Granulocytes Count 0.200 X10^3/uL (0.0-0.0); Mean Corp Hgb Conc 33.7 g/dL (32-36); Mean Corpuscular Volume 103.9 fL (80-94); Mean Platelet Vol. 8.9 fl (6.2-12.0); NRBC Flagged by Analyzer 0 % (0-5); Platelet Count 427 K/mm3 (150-450); RBC Distribution Width CV 13.2 % (11.6-14.6); RBC Distribution Width SD 51.6 fl (35.1-43.9); Red Blood Count 3.63 M/mm3 (4.6-6.2); White Blood Count 10.1 K/mm3 (4.4-11.0)
--- NOTE | 2024-11-10 07:13 | PHA.CONS_ITS ---
Documented by User: Katherine Kay 11/10/24 07:54 TCU RX Drug Regimen Review Subjective/Objective Subjective/Objective Subjective: TCU Admission. 79 YOM presented to ER with abdominal pain, transferred to [facility]. Hospitalized for sepsis, ghada fungemia, pyelonephritis, complicated by right ureteral stone, right hydronephrosis, acute kidney injury, hyperkalemia. Admitted to TCU with debility for strengthening and rehabilitation. Objective: Allergies No Known Allergies Allergy (Verified 10/19/24 07:20) Current Medications Generic Name Dose Route Start Last Admin Trade Name Freq PRN Reason Stop Dose Admin Acetaminophen 1,000 mg 11/07/24 21:04 11/09/24 21:15 Acetaminophen 500 Mg Tablet PO 1,000 mg Q6H PRN PRN Administration Pain Score 1-10 Albuterol Sulfate 2 puff 11/07/24 22:00 11/09/24 21:05 Albuterol Ih (6.7 Gm) 1 Puff Inhaler INHALATION 2 puff QHS CEDRIC Administration Allopurinol 300 mg 11/08/24 10:00 11/09/24 09:18 Allopurinol 300 Mg Tablet PO 300 mg DAILY CEDRIC Administration Amlodipine Besylate 5 mg 11/08/24 10:00 11/09/24 09:18 Amlodipine 5 Mg Tablet PO 5 mg DAILY CEDRIC Administration Protocol Ascorbic Acid 500 mg 11/08/24 08:00 11/09/24 09:17 Ascorbic Acid 500 Mg Tablet PO 500 mg BREAKFAST CEDRIC Administration Aspirin 81 mg 11/08/24 08:00 11/09/24 09:17 Aspirin 81 Mg Tab.Chew PO 81 mg BREAKFAST CEDRIC Administration Atorvastatin Calcium 20 mg 11/07/24 22:00 11/09/24 21:13 Atorvastatin Calcium 20 Mg Tablet PO 20 mg QHS CEDRIC Administration Benzonatate 100 mg 11/07/24 20:41 11/10/24 06:16 Benzonatate 100 Mg Capsule PO 100 mg Q8H PRN PRN Administration cough Buspirone HCl 7.5 mg 11/07/24 22:00 11/09/24 21:13 Buspirone 15 Mg Tablet PO 7.5 mg BID CEDRIC Administration Calamine/Phenol 1 applic 11/08/24 10:00 11/09/24 21:16 Menthol/Lanolin/Calamine/Znox 113 Gm Tube TOPICAL 1 applic BID CEDRIC Administration Protocol Donepezil HCl 10 mg 11/07/24 22:00 11/09/24 21:13 Donepezil Hcl 10 Mg Tablet PO 10 mg QHS CEDRIC Administration Enoxaparin Sodium 30 mg 11/08/24 06:00 11/10/24 05:45 Enoxaparin 30 Mg/0.3 Ml Syringe SC 30 mg DAILY@0600 CEDRIC Administration Fluconazole 400 mg 11/08/24 10:00 11/09/24 09:20 Fluconazole 100 Mg Tablet PO 11/18/24 10:00 400 mg DAILY CEDRIC Administration Latanoprost 1 drp 11/07/24 22:00 11/09/24 21:08 Latanoprost 0.005% 1 Bottle EACH EYE 1 drp QHS CEDRIC Administration Magnesium Citrate 300 ml 11/07/24 21:04 Magnesium Citrate 300 Ml PO DAILY PRN CONSTIPATION Memantine 5 mg 11/07/24 22:00 11/09/24 21:13 Memantine Hydrochloride 5 Mg Tablet PO 5 mg BID CEDRIC Administration Metoprolol Succinate 25 mg 11/07/24 22:00 11/09/24 21:14 Metoprolol(Xl)Succ 25 Mg Tablet PO 25 mg BID CEDRIC Administration Protocol Multivitamins 1 cap 11/08/24 10:00 11/09/24 09:18 Vitamin B Comp W-C Capsule PO 1 cap DAILY CEDRIC Administration Nutritional Formula (Lactose Free) 120 ml 11/08/24 17:45 11/09/24 16:40 Ensure Plus High Protein 120 Ml Liquid PO 120 ml TIDCM CEDRIC Administration Nystatin 1 applic 11/08/24 10:00 11/09/24 21:16 Nystatin Powder 15gm Bottle TOPICAL 1 applic BID CEDRIC Administration Protocol Senna/Docusate Sodium 1 tablet 11/08/24 15:42 Senna/Docusate Sodium 1 Tablet PO BID PRN Constipation Tamsulosin HCl 0.4 mg 11/08/24 10:00 11/09/24 09:18 Tamsulosin Hcl 0.4 Mg Capsule PO 0.4 mg DAILY CEDRIC Administration Timolol Maleate 1 drp 11/07/24 22:00 11/09/24 21:07 Timolol 0.5% 5ml Opth.Btl EACH EYE 1 drp BID CEDRIC Administration Tuberculin PPD 0.1 ml 11/15/24 10:00 Tuberculin,Purif.Prot.Deriv. 50 Tu/Ml Vial ID 11/15/24 10:01 X1 ONE Problem List Asthma (Acute) Anxiety (Acute) Glaucoma (Acute) BPH (benign prostatic hyperplasia) (Acute) Chronic heart failure with preserved ejection fraction (HFpEF) (Acute) Depression (Acute) Dementia, unspecified, without behavioral disturbance (Acute) Hyperkalemia (Acute) Pyelonephritis (Acute) Right ureteral stone (Acute) DIAN (acute kidney injury) (Acute) Fungemia (Acute) Sepsis (Acute) Debility (Acute) Gout (Acute) Essential hypertension (Chronic) Hyperlipidemia (Chronic) Vital Signs Temp Pulse Resp BP Pulse Ox O2 Del Method O2 Flow Rate 98 F 66 18 140/75 H 97 CPAP 2 11/09/24 09:12 11/09/24 21:14 11/09/24 09:12 11/09/24 21:14 11/09/24 23:55 11/09/24 23:55 11/09/24 23:55 Oxygen Flow Rate (L/min) 2 Oxygen Delivery Method CPAP Weight: 80.921 kg Body Mass Index (BMI) 27.1 Sodium 138 mmol/L (133-145) 11/08/24 06:45 Potassium 4.5 mmol/L (3.3-5.1) 11/08/24 06:45 Chloride 103 mmol/L (98-108) 11/08/24 06:45 Carbon Dioxide 20.2 mmol/L (21.0-32.0) L 11/08/24 06:45 Anion Gap 15 (5-15) 11/08/24 06:45 BUN 42 mg/dL (4-19) H 11/08/24 06:45 Creatinine 1.44 mg/dL (0.70-1.20) H 11/08/24 06:45 Est GFR (MDRD) Non-Af 49 (>60) L 11/08/24 06:45 BUN/Creatinine Ratio 29.1 RATIO (10-20) H 11/08/24 06:45 Glucose 155 mg/dL (70-99) H 11/08/24 06:45 Assessment/Plan: 1. Pain: acetaminophen 1000mg PO Q6H PRN pain. Resident has had 1 dose for generalized pain (score of 4). Last LFTs 10/19/24. Check LFTs if resident develops symptoms of hepatoxicity. Consider monitoring LFTs if patient using > 3 gm/day of acetaminophen for prolonged period. Do not exceed 4000 mg in 24 hours. Monitor pain scores before/after prn administration for response, PRN pain medication usage, symptoms of pain/resident distress and ability to participate in therapy. 2. Bowel: senna/docusate 2T PO BID PRN constipation and magnesium citrate 300mL PO daily PRN constipation. Resident hasn't received prn doses since admission. Last document bowel movement:11/07/24. Monitor for usage of prn medications, abdominal pain, frequency of bowel movements, diarrhea. Recommend holding bowel regimen if resident develops diarrhea. 3. DVT prophylaxis: enoxaparin 30mg SC daily. Please consider increasing dose to 40mg due to CrCl of 40mL/min per policy. Thanks. Please continue to monitor for S/S of bleeding/DVT, hemoglobin (last 12.7g/dL), platelets (last 427,000) and renal function. 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 Please continue to monitor for S/S of infection, renal function, GI side effects, rash. 5. Gout: allopurinol 300mg PO daily. Please continue to monitor for S/S of gout and renal function. 6. Hypertension/CAD s/p stent: metoprolol succinate 25mg PO BID, amlodipine 5mg PO daily, aspirin 81mg PO daily. Please continue to monitor BP (range 129/78 - 148/90), HR (66-74), swelling, S/S of bleeding. 7. Hyperlipidemia: atorvastatin 20mg PO QHS. Please continue to monitor lipid panel (last 09/22/24), LFTs (last 10/19/24) and muscle pain. 8. BPH: tamsulosin 0.4mg PO daily. Please continue to monitor for S/S of BPH and BP. 9. Asthma: albuterol MDI 2 puffs inhalation QHS. Please continue to monitor for S/S of asthma, HR, anxiety. 10. Cough: benzonatate 100mg PO Q8H PRN cough. Resident has had 4 PRN doses. Please continue to monitor for PRN doses, cough. 11. Alzheimer disease: donepezil 10mg PO QHS and memantine 5mg PO BID. Please continue to monitor for S/S of Alzheimer disease, GI side effects, insomnia, drowsiness. 12. Glaucoma: latanoprost 0.005% 1 gtt OU QHS and timolol 0.5% 1gtt OU BID. Please continue to monitor for S/S of glaucoma and eye irritation. 13. Leg cramps/vitamin C deficiency: ascorbic acid 500mg PO daily and vitamin B complex PO daily. Please continue to monitor. Assessment/Plan for indications treated with psychotropic medications: 1. Anxiety: buspirone 7.5mg PO BID. Please see physician note regarding GDR. Please continue monitor for S/S of anxiety, dizziness and drowsiness. Monitor for efficacy including resident symptoms, behaviors and indications of distress. Monitor for tolerability including mental status, cognition, excessive sleepiness, withdrawal or decreased participation in activities and decline in physical functioning. Maximize use of nonpharmacologic/behavioral interventions to facilitate dose reduction or discontinuation as appropriate. Please evaluate the appropriateness of GDR unless contraindicated. If appropriate, GDR should be attempted in 2 separate quarters within the first year of use or admission to TCU. If GDR attempted, monitor resident symptoms/behaviors. Medical chart and medication regimen reviewed. The following medication irregularities or issues were identified: 1. Enoxaparin 30mg SC daily. Please consider increasing dose to 40mg due to CrCl of 40mL/min per policy. Thanks. Date Date of Note: 11/10/24 Documented by User: Dr. Andrzej Aguilar MD 11/10/24 08:00 TCU RX Drug Regimen Review Provider Comments Provider responsibility Provider Comments to Recommendations by Pharmacy Agree
[2024-11-10 08:30] VITALS: BP 139/74; PULSE 66; RESP 16; TEMP 36.5; O2SAT 96
[2024-11-10] MEDS: Ensure Plus High Protein 120 ML LIQUID PO ×3 (08:33→18:05)
[2024-11-10 08:34] VITALS: PULSE 66
[2024-11-10] MEDS: Vitamin B Comp W-C Capsule 1 CAP PO (08:34)
[2024-11-10] MEDS: Metoprolol(XL)Succ 25 MG Tablet PO ×2 (08:34→20:07)
[2024-11-10] MEDS: Memantine Hydrochloride 5 MG Tablet PO ×2 (08:34→20:05)
[2024-11-10] MEDS: Timolol 0.5% 5ML OPTH.BTL 1 DRP EACH EYE ×2 (08:35→20:06)
--- NOTE | 2024-11-10 12:17 | NURSING ---
Offered covid vaccine, VIS provided. He says he's ok taking it. RN discussed with as well via phone, she'd like to hold off and will talk with him tonight. Resident agrees to wait and discuss with .
--- NOTE | 2024-11-10 12:21 | NURSING ---
Circuit Walker Note; Activity Asset: Andrey Daniel prefers to be called Scott. Scott is independent in his choice of daily activities. 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 He has his smartphone, books and welcomes visits from medical appointment scheduler and therapy dog when available. Staff will remind him of weekly activities and respect his right to say no.
--- NOTE | 2024-11-10 19:03 | NURSING ---
concerned that pt is going to give staff some difficulty if he is not discharged, explained to pt he needs therapy and is not going home. pt verbalized that he is leaving on the day of the POC meeting on Sun. Educated pt that it will not be that day, therapy is going to go over what he needs to work on and how he is doing in therapy. message left with all therapy staff to speak with about her concerns.
[2024-11-10 19:59] VITALS: BP 139/77; PULSE 66; O2SAT 95
[2024-11-10 20:00] VITALS: PULSE 70; O2SAT 95
[2024-11-10] MEDS: Albuterol IH (6.7 GM) 1 PUFF INHALER 2 PUFF INHALATION (20:01)
[2024-11-10] MEDS: MELATONIN 10 MG TABLET PO (20:05)
[2024-11-10 20:07] VITALS: BP 139/77; PULSE 66
[2024-11-10] MEDS: Latanoprost 0.005% 1 Bottle 1 DRP EACH EYE (20:07)
[2024-11-11 05:51] VITALS: PULSE 60; O2SAT 96
[2024-11-11 09:21] VITALS: BP 145/87; PULSE 75; RESP 17; TEMP 36.3; O2SAT 97
[2024-11-11] MEDS: Vitamin B Comp W-C Capsule 1 CAP PO (09:23)
[2024-11-11 09:24] VITALS: PULSE 25
[2024-11-11] MEDS: Metoprolol(XL)Succ 25 MG Tablet PO ×2 (09:24→20:50)
[2024-11-11] MEDS: Memantine Hydrochloride 5 MG Tablet PO ×2 (09:24→20:51)
[2024-11-11] MEDS: Timolol 0.5% 5ML OPTH.BTL 1 DRP EACH EYE ×2 (09:25→20:49)
[2024-11-11] MEDS: Ensure Plus High Protein 120 ML LIQUID PO ×3 (09:27→17:42)
--- NOTE | 2024-11-11 10:14 | CASEMGMT ---
Addendum entered by Margarita Lozada 11/11/24 16:34: SW attempted to meet with pt but pt in therapy. SW will return tomorrow. Original Note: Social Work SW received note from RN to follow up with on pt's request to DC home. SW phoned to follow up. explained pt's confusion and wanting to be at home. ST order was entered and POWER LINEMAN TECHNICIAN to evaluate and follow up with on findings. shared history of pt's temper, public outbursts, repetition with information, family and friends noticing memory issues, word finding issues. SW noted pt has a dx of Dementia in the chart and pt is prescribed Aricept, Namenda and Buspar. stated she was unaware there was an official dx, and maybe a Dr gave that dx to support the need for the medications. SW explained that likely was not the case, and inquired further about pt's medical history and providers. SW noted that with examples provided, pt is exhibiting routine signs of Dementia. Explained pt likely has a routine he follows, speficially noting that stated that pt drives in town. SW offered the example that pt likely takes the same route to get to a known destination, but if there was road closed, would pt be able to problem solve to reroute to the destination. Explaining pt is now taken out of his environment, changed locations being in the hospital and TCU, and the confusion is exacerbated as he can no longer cover up his memory impairment. appreciative of insight and education. shared pt/ moved to [place] in 2022. Pt has seen a neurologist in [place] from Jan 2022 - Apr 2022, who completed an MRI and there was an old stroke, not a TIA, the noted, which potentially could have started the memory issues. stated pt saw another neurologist in [place] that completed a blood test and it was negative, so he does not have Alzheimer's. SW educated further with Alzheimer's and Dementia, within this worker's scope, and dx can be given clinically, even if test results are negative. stated she stopped going with pt to his PCP appts because pt would become aggravated at voicing pt's impairments, that she stopped going. overall unclear of pt's memory impairment and dx. receptive to all information from this worker and appreciative of interest and education. agreed to request from SW to obtain medical records from past neurologists and PCP, if able, to gather better medical history and for Dr. Aguilar to best treat pt, along with IDT making DC recommendations. appreciative. - SW provided verbal update to charge nurse who will relay information to Dr. Aguilar and request release of records. Verbal hand off to POWER LINEMAN TECHNICIAN, who completed eval and spoke with after SW conversation. MOCA . SW will meet with pt to complete initial assessment . Margarita Lozada CERTIFIED REGISTERED DENTAL ASSISTANT ELECTRONIC TECHNICIAN
--- NOTE | 2024-11-11 10:27 | NURSING ---
pt was very emotionally labile this AM, speaking about missing both his parents expressed the cause of for each of them, crying as he is talking about them. 1:1 emotional support given. Goes on to describe he wishes he would of visited them more when he was younger but he was going to college & raising children. pt noted to make jokes at inappropriate times as well and can be sarcastic. pt does not like to be encouraged to drink fluids or asked to do things to assist staff, he gets upset and states what is this a shelter?, it feels like one
[2024-11-11] MEDS: Albuterol IH (6.7 GM) 1 PUFF INHALER 2 PUFF INHALATION (20:49)
[2024-11-11 20:50] VITALS: BP 131/74; PULSE 66
[2024-11-11] MEDS: MELATONIN 10 MG TABLET PO (20:51)
[2024-11-11] MEDS: Latanoprost 0.005% 1 Bottle 1 DRP EACH EYE (20:52)
[2024-11-12 01:11] LABS: Mucous, Urine 0 SEEN /hpf (<or=2+)
[2024-11-12 01:25] LABS: Color, Urine Red (Yellow); Glucose, Dipstick Normal (Normal); Ketone-Dipstick Negative (Negative); Leukocyte Esterase-Dipstick 500 /ul (Negative); Nitrite-Dipstick Negative (Negative); Occult Blood-Urine 250 /ul (Negative); Protein-Dipstick 100 mg/dl (Negative); Specific Gravity, Urine 1.010 (1.002-1.030); Urine Bilirubin Dipstick Negative (Negative)
[2024-11-12 01:34] LABS: Red Blood Cells-Urine > 100 SEEN /hpf (0-5)
[2024-11-12 01:39] LABS: Squamous Epithelial Cells - UA 0-5 SEEN /hpf (0-5)
[2024-11-12 08:17] VITALS: BP 144/83; PULSE 74; RESP 17; TEMP 36.5; O2SAT 97
[2024-11-12] MEDS: Vitamin B Comp W-C Capsule 1 CAP PO (09:09)
[2024-11-12] MEDS: Ensure Plus High Protein 120 ML LIQUID PO ×4 (09:11→20:20)
[2024-11-12 09:12] VITALS: PULSE 74
[2024-11-12] MEDS: Timolol 0.5% 5ML OPTH.BTL 1 DRP EACH EYE ×2 (09:12→20:12)
[2024-11-12] MEDS: Metoprolol(XL)Succ 25 MG Tablet PO ×2 (09:12→20:12)
[2024-11-12] MEDS: Memantine Hydrochloride 5 MG Tablet PO ×2 (09:12→20:11)
--- NOTE | 2024-11-12 09:20 | NURSING ---
pt states he díaz not feel right about being here states he doesn't want to go into whats wrong- pt also redused senna at this time but requested it to be scheduled with his medications again
--- NOTE | 2024-11-12 11:20 | CASEMGMT ---
Social Work was running late for POC meeting, so this worker met 1:1 with patient to complete initial assessment. Verified contacts and code status as full code. Assessment updated. - arrived and IDT met with patient and for care plan meeting. Discussed patient's progress in PT/OT/ST/SN/RDN. Educated to [facility] insurance with NRD 11/13 and continued stay is not guaranteed with each review. RDN discussed malnutrition and recommended Remeron; pt agreed. Pt's goal is to return home with closer to PLOF, but stated she has back issues and cannot physically assist pt. Therapy offered training for to observe pt's functional level and better assess what can or cannot do. further expressed concerns with pt driving, not using the walker at home, balance issues. Therapy and this worker assisted in answering questions. Pt would provide his input, but often ask for things to be repeated or ask questions that have already been answered. Team observed patient struggled with comprehension, inattention, and memory impairment evident. Team also observed slight memory impairment with as well, but would be stress induced. SW and therapy revisited scheduling therapy training. agreed and scheduled therapy training with on 11/19 at 1300. Pt asked again when he could be DC'd, though, SW could not provide a timeframe, as there are goals that still would like to be met prior to DC. SW explained it is collaborative between IDT, and pt on readiness and safety for DC. IDT will make recommendations that include cognitive and physical capacity and Dr will evaluate any driving restrictions. Provided pt/family with written communication of insurance process and copay coverage during stay. Provided resources for medical alert, private duty aides, and driving rehab program. SW will continue to follow for DC planning and support. Margarita Lozada COLLECTOR CORE DROPPER
[2024-11-12 18:40] VITALS: BP 141/75; PULSE 74; RESP 18; TEMP 36.8; O2SAT 96
--- NOTE | 2024-11-12 18:45 | NURSING ---
pt complains of being nauseous- no emesis- took full set of vitals- patient explains further that discomfort is in mi-lower abdomen- bladder scan performed to check for retention- 84 on bladder scan- this nurse offered tylenol for pain- pt states that might work. will continue to monitor
[2024-11-12 20:06] VITALS: BP 129/75; PULSE 69
[2024-11-12] MEDS: Albuterol IH (6.7 GM) 1 PUFF INHALER 2 PUFF INHALATION (20:08)
[2024-11-12] MEDS: MELATONIN 10 MG TABLET PO (20:11)
[2024-11-12 20:12] VITALS: PULSE 69
[2024-11-12] MEDS: Latanoprost 0.005% 1 Bottle 1 DRP EACH EYE (20:12)
[2024-11-12] MEDS: Senna/Docusate Sodium 1 Tablet PO (20:18)
--- NOTE | 2024-11-12 20:21 | NURSING ---
Administered HS medications now per pt request
[2024-11-12 20:22] VITALS: PULSE 71; RESP 16; O2SAT 95
[2024-11-13] MEDS: Ensure Plus High Protein 120 ML LIQUID PO ×3 (05:09→21:05)
--- NOTE | 2024-11-13 09:32 | MDS.RN ---
Pain assessment for MDS complete.
[2024-11-13] MEDS: Senna/Docusate Sodium 1 Tablet PO ×2 (09:58→21:12)
[2024-11-13] MEDS: Memantine Hydrochloride 5 MG Tablet PO ×2 (09:59→21:10)
[2024-11-13] MEDS: Vitamin B Comp W-C Capsule 1 CAP PO (09:59)
[2024-11-13 10:00] VITALS: PULSE 72
[2024-11-13] MEDS: Metoprolol(XL)Succ 25 MG Tablet PO ×2 (10:00→21:17)
[2024-11-13] MEDS: Timolol 0.5% 5ML OPTH.BTL 1 DRP EACH EYE ×2 (10:01→21:12)
--- NOTE | 2024-11-13 15:18 | CHAPLAIN ---
Type of Pastoral Visit _x__ Initial Visit ___ Follow-up Visit ___ On-call Visit ___ General Patient Visit ___ Spiritual Assessment ___ Family Conference ___ Bereavement ___ Rapid Response ___ Code Blue ___ Other (describe below) Pastoral Care Referral From _x__ Patient ___ Family ___ Nurse ___ Physician ___ Christian Counselor ___ Product Development Technician _x__ Other (describe below) Sacrament/Intervention _x__ Active listening ___ Anointing ___ Restoration ___ Bereavement ___ Communion ___ Amber exploration ___ _x__ Life review _x__ Prayer ___ Reconciliation ___ Sacrament of Sick ___ Supportive presence ___ Wedding ___ Other (describe below) Pastoral Comments Band Sawmill Operator notified this english as a second language instructor that patient would like a visit from the english as a second language instructor; pt was in his room quietly resting on his bed; pt is asked about his life and work; 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
[2024-11-13 16:00] VITALS: BP 138/76; PULSE 72; RESP 18; TEMP 36.6; O2SAT 96
[2024-11-13] MEDS: Albuterol IH (6.7 GM) 1 PUFF INHALER 2 PUFF INHALATION (21:05)
[2024-11-13] MEDS: MELATONIN 10 MG TABLET PO (21:11)
[2024-11-13] MEDS: Latanoprost 0.005% 1 Bottle 1 DRP EACH EYE (21:12)
[2024-11-13 21:17] VITALS: BP 150/80; PULSE 72
[2024-11-13 21:23] VITALS: BP 150/80; PULSE 72
[2024-11-14] MEDS: Ensure Plus High Protein 120 ML LIQUID PO ×4 (06:28→20:30)
[2024-11-14 08:03] VITALS: BP 130/77; PULSE 87; RESP 16; TEMP 36.4; O2SAT 98
[2024-11-14 08:06] VITALS: PULSE 87
[2024-11-14] MEDS: Memantine Hydrochloride 5 MG Tablet PO ×2 (08:06→20:25)
[2024-11-14] MEDS: Vitamin B Comp W-C Capsule 1 CAP PO (08:06)
[2024-11-14] MEDS: Metoprolol(XL)Succ 25 MG Tablet PO ×2 (08:06→20:27)
[2024-11-14] MEDS: Timolol 0.5% 5ML OPTH.BTL 1 DRP EACH EYE ×2 (08:08→20:28)
[2024-11-14] MEDS: Senna/Docusate Sodium 1 Tablet 2 TABLET PO ×2 (09:13→20:26)
--- NOTE | 2024-11-14 10:07 | NURSING ---
Received auth for CT scan head no contrast for confusion/change in mental status. Auth #[id number].
--- NOTE | 2024-11-14 11:16 | CASEMGMT ---
Social Work SW completed BIMS () and PHQ-2 () for MDS assessment. After assessment, pt asked what he needed to do to go home. SW explained the first step is to see how feels after completing therapy training on 11/18, if she can care for pt at home. Pt replied, that's already scheduled?. SW confirmed that was scheduled at POC meeting on Sunday where pt was present. Pt did not recall. Pt then asked when he would be able to DC. SW reiterated after therapy training, can better asses what other goals pt needs to meet prior to DC. Pt nodded head. Pt was eating Bettina Doone cookies while laying down in bed and pt was coughing. SW educated it is best to sit up in bed to eat. Pt replied, I'm fine. Margarita Lozada MSW SILK SCREENER
--- NOTE | 2024-11-14 14:34 | PCA ---
I went to answer pt bathroom call light with corina Vital. when we walked into bathroom pt was already standing up, underwear pulled up and stepped away with walker; with the toilet flushed. i had then asked if he had a bm and he said yes , i told him he needs to wait for us to help him off the toilet with his gaitbelt( he had taken his off himslef), so we can see his bm for our charting after attempting to help him with his pants after he expressed for me not to touch him, then told me mark heard it before i dont need to hear it again so just shut up
[2024-11-14 20:00] VITALS: PULSE 86; RESP 16; O2SAT 97
[2024-11-14 20:16] VITALS: BP 138/85; PULSE 87
[2024-11-14] MEDS: Albuterol IH (6.7 GM) 1 PUFF INHALER 2 PUFF INHALATION (20:20)
[2024-11-14] MEDS: MELATONIN 10 MG TABLET PO (20:25)
[2024-11-14 20:27] VITALS: BP 138/85; PULSE 87
[2024-11-14] MEDS: Latanoprost 0.005% 1 Bottle 1 DRP EACH EYE (20:28)
[2024-11-15] MEDS: Ensure Plus High Protein 120 ML LIQUID PO ×4 (06:00→19:51)
[2024-11-15 06:19] LABS: Hematocrit 39.8 % (40-54); Hemoglobin 13.4 g/dL (13.0-16.5); Immature Granulocytes Count 0.300 X10^3/uL (0.0-0.0); Mean Corp Hgb Conc 33.7 g/dL (32-36); Mean Corpuscular Volume 102.3 fL (80-94); Mean Platelet Vol. 8.6 fl (6.2-12.0); NRBC Flagged by Analyzer 0 % (0-5); Platelet Count 310 K/mm3 (150-450); RBC Distribution Width CV 13.3 % (11.6-14.6); RBC Distribution Width SD 50.4 fl (35.1-43.9); Red Blood Count 3.89 M/mm3 (4.6-6.2); White Blood Count 10.8 K/mm3 (4.4-11.0)
[2024-11-15 06:46] VITALS: PULSE 82; RESP 16; O2SAT 96
[2024-11-15 06:55] LABS: Anion Gap 12 (5-15); BUN 47 mg/dL (4-19); BUN/Creat Ratio 34.4 RATIO (10-20); Calcium,Total 9.2 mg/dL (7.6-11.0); Carbon Dioxide 23.2 mmol/L (21.0-32.0); Chloride 104 mmol/L (98-108); Estimated Creatinine Clearance 42.61 ml/min (50-250); Glucose 106 mg/dL (70-99); Potassium 4.8 mmol/L (3.3-5.1)
[2024-11-15 10:08] VITALS: BP 147/82; PULSE 82; RESP 16; TEMP 36.4; O2SAT 100
[2024-11-15 10:14] VITALS: PULSE 82
[2024-11-15] MEDS: Memantine Hydrochloride 5 MG Tablet PO ×2 (10:14→19:52)
[2024-11-15] MEDS: Metoprolol(XL)Succ 25 MG Tablet PO ×2 (10:14→19:53)
[2024-11-15] MEDS: Timolol 0.5% 5ML OPTH.BTL 1 DRP EACH EYE ×2 (10:15→19:53)
[2024-11-15] MEDS: Vitamin B Comp W-C Capsule 1 CAP PO (10:15)
--- NOTE | 2024-11-15 10:57 | PCA ---
after answering bathroom light and heading directly to his room i opened the bathroom door he was standing up without gaitbelt away from toilet standing on one leg while trying to put his underwear and strongly refused to let me touch him to help him
[2024-11-15] MEDS: Tuberculin,Purif.prot.deriv. 50 TU/ML Vial 0.1 ML ID (11:23)
--- NOTE | 2024-11-15 12:20 | NURSING ---
pt requesting stronger cough medication, dr medina notified, new order robitussin DM PRN. pt continues with chronic dry cough, worse in AM and @ night.
[2024-11-15 19:48] VITALS: BP 150/74; PULSE 92
[2024-11-15] MEDS: Albuterol IH (6.7 GM) 1 PUFF INHALER 2 PUFF INHALATION (19:50)
[2024-11-15] MEDS: MELATONIN 10 MG TABLET PO (19:52)
[2024-11-15 19:53] VITALS: BP 150/74; PULSE 92
[2024-11-15] MEDS: Senna/Docusate Sodium 1 Tablet 2 TABLET PO (19:53)
[2024-11-15] MEDS: Latanoprost 0.005% 1 Bottle 1 DRP EACH EYE (19:54)
--- NOTE | 2024-11-15 20:00 | NURSING ---
Administered HS medications at this time per pt request
[2024-11-16 09:15] VITALS: BP 132/67; PULSE 85; RESP 17; TEMP 36.8; O2SAT 96
[2024-11-16] MEDS: Ensure Plus High Protein 120 ML LIQUID PO ×4 (09:18→21:46)
[2024-11-16 09:21] VITALS: PULSE 85
[2024-11-16] MEDS: Timolol 0.5% 5ML OPTH.BTL 1 DRP EACH EYE ×2 (09:21→21:40)
[2024-11-16] MEDS: Metoprolol(XL)Succ 25 MG Tablet PO ×2 (09:21→21:39)
[2024-11-16] MEDS: Vitamin B Comp W-C Capsule 1 CAP PO (09:22)
[2024-11-16] MEDS: Memantine Hydrochloride 5 MG Tablet PO ×2 (09:22→21:45)
--- NOTE | 2024-11-16 10:20 | NURSING ---
dr medina updated on urine c/s. new order to DC cefdinir.
--- NOTE | 2024-11-16 20:17 | CPS ---
Patient set up with own PAP machine for the night
[2024-11-16] MEDS: Albuterol IH (6.7 GM) 1 PUFF INHALER 2 PUFF INHALATION (21:38)
[2024-11-16 21:39] VITALS: BP 144/83; PULSE 83
[2024-11-16] MEDS: Latanoprost 0.005% 1 Bottle 1 DRP EACH EYE (21:41)
[2024-11-16] MEDS: Senna/Docusate Sodium 1 Tablet 2 TABLET PO (21:45)
[2024-11-16] MEDS: MELATONIN 10 MG TABLET PO (21:46)
[2024-11-16 21:53] VITALS: BP 144/83; PULSE 83
[2024-11-16 21:57] VITALS: PULSE 83; RESP 16
[2024-11-17] MEDS: Ensure Plus High Protein 120 ML LIQUID PO ×2 (09:30→21:05)
[2024-11-17 09:36] VITALS: BP 153/85; PULSE 75
[2024-11-17] MEDS: Memantine Hydrochloride 5 MG Tablet PO ×2 (09:36→21:05)
[2024-11-17] MEDS: Vitamin B Comp W-C Capsule 1 CAP PO (09:36)
[2024-11-17] MEDS: Senna/Docusate Sodium 1 Tablet 2 TABLET PO ×2 (09:36→21:06)
[2024-11-17] MEDS: Metoprolol(XL)Succ 25 MG Tablet PO ×2 (09:36→21:06)
[2024-11-17] MEDS: Timolol 0.5% 5ML OPTH.BTL 1 DRP EACH EYE ×2 (09:38→21:06)
[2024-11-17 10:00] VITALS: PULSE 83; RESP 16
[2024-11-17 13:38] VITALS: BP 143/85; PULSE 75; RESP 16; TEMP 36.4; O2SAT 93
--- NOTE | 2024-11-17 13:47 | NURSING ---
Physical therapy let me know that the patient was not doing as much for them as he had been able to do last week. They said that he was needing to be 2 assist for them, and requesting help for what he had been able to do himself. When I later assisted him to the bathroom he was able to move one assist with minor complaints at the beginning of ambulation, smile equal, equal strength upper and lower extremities
[2024-11-17 21:01] VITALS: BP 151/87; PULSE 91
[2024-11-17] MEDS: Albuterol IH (6.7 GM) 1 PUFF INHALER 2 PUFF INHALATION (21:04)
[2024-11-17] MEDS: MELATONIN 10 MG TABLET PO (21:05)
[2024-11-17 21:06] VITALS: PULSE 91
[2024-11-17] MEDS: Latanoprost 0.005% 1 Bottle 1 DRP EACH EYE (21:06)
--- NOTE | 2024-11-17 21:11 | NURSING ---
Pt has $25 saleh at bedside. Pt requested for this nurse to lock money in medbox. CHICKEN HANGER witnessed this nurse count saleh with pt. Pt denies further needs at this time. Call light within reach. Bed hansen alarm on and functioning.
[2024-11-18 02:26] VITALS: BMI 26.8
[2024-11-18] MEDS: Ensure Plus High Protein 120 ML LIQUID PO ×3 (05:14→20:46)
--- NOTE | 2024-11-18 08:31 | NURSING ---
Natural Gas Engineer Note, MDS for 11/14/2024 Complete
[2024-11-18 08:53] VITALS: BP 116/74; PULSE 89; RESP 16; TEMP 36.6; O2SAT 96
[2024-11-18] MEDS: Senna/Docusate Sodium 1 Tablet 2 TABLET PO ×2 (08:55→20:48)
[2024-11-18] MEDS: Memantine Hydrochloride 5 MG Tablet PO ×2 (08:55→20:48)
[2024-11-18 08:56] VITALS: PULSE 89
[2024-11-18] MEDS: Vitamin B Comp W-C Capsule 1 CAP PO (08:56)
[2024-11-18] MEDS: Metoprolol(XL)Succ 25 MG Tablet PO ×2 (08:56→20:51)
[2024-11-18] MEDS: Timolol 0.5% 5ML OPTH.BTL 1 DRP EACH EYE ×2 (08:57→20:49)
--- NOTE | 2024-11-18 19:42 | NURSING ---
Patient noted to have a bottle of Tylenol at bedside, patient requesting tylenol, nurse explained that we have tylenol ordered that we can give patient, but that the patient can not have a bottle at bedside, patient agreeable, tylenol locked in med box, PRN Tylenol administered per order.
[2024-11-18 20:00] VITALS: PULSE 94; O2SAT 96
[2024-11-18 20:40] VITALS: BP 132/78; PULSE 90
[2024-11-18] MEDS: Albuterol IH (6.7 GM) 1 PUFF INHALER 2 PUFF INHALATION (20:43)
[2024-11-18] MEDS: MELATONIN 10 MG TABLET PO (20:47)
[2024-11-18] MEDS: Latanoprost 0.005% 1 Bottle 1 DRP EACH EYE (20:50)
[2024-11-18 20:51] VITALS: BP 132/78; PULSE 90
[2024-11-18 22:12] VITALS: O2SAT 96
[2024-11-19 06:24] VITALS: PULSE 92; O2SAT 95
[2024-11-19] MEDS: Vitamin B Comp W-C Capsule 1 CAP PO (08:11)
[2024-11-19 08:12] VITALS: BP 132/79; PULSE 89
[2024-11-19] MEDS: Senna/Docusate Sodium 1 Tablet 2 TABLET PO ×2 (08:12→20:22)
[2024-11-19] MEDS: Timolol 0.5% 5ML OPTH.BTL 1 DRP EACH EYE ×2 (08:12→20:22)
[2024-11-19] MEDS: Memantine Hydrochloride 5 MG Tablet PO ×2 (08:12→20:21)
[2024-11-19] MEDS: Metoprolol(XL)Succ 25 MG Tablet PO ×2 (08:12→20:19)
[2024-11-19] MEDS: Ensure Plus High Protein 120 ML LIQUID PO ×4 (08:16→20:18)
[2024-11-19 10:29] VITALS: BP 132/79; PULSE 89; RESP 18; TEMP 36.4; O2SAT 97
--- NOTE | 2024-11-19 14:00 | MDS.RN ---
Information for the MDS was obtained from review of the clinical record, interview of resident, staff, and direct observation of resident?s care.
--- NOTE | 2024-11-19 17:25 | CASEMGMT ---
Social Work Pt's requesting to speak with this worker. LUIS ANGEL informed this worker after therapy training and reiteration for 24/7 care recommendations, voiced she cannot provide that care for pt at home. - SW presented to pt's room and is present at bedside. Pt was sleeping, but awoke to this worker. SW offered for pt to return to sleep and offered to speak with this worker outside of room. Pt and agreed. appreciative of speaking with SW 1:1. SW spoke with and discussed 's concerns and DC plans. voiced with pt being messy regarding his urination and personal care, stated she cannot handle that at home. also voiced concerns with being able to go to the grocery store and having pt home alone, for example. SW reinforced recommendations for 24/7 care, and pt could not be home alone when has errands to complete. Suggested hiring [employer] PROJECT MANAGER to assist with errands, companionship with pt, personal care for pt and assist with reducing caregiver burn out for . voiced being apprehensive about telling pt he cannot do all these things and pt becoming mean or take it out on . SW agreed that is not desirable and concerns for 's safety and well-being. Offered AL or SNF as an option. inquired about financial assistance. SW explained [employer]ER[employer] PROJECT MANAGER, AL and SNF would be an OOP cost. stated they do not have the funds to pay for that. SW inquired about finances for Medicaid eligibility. shared details of finances. Pt may be over income, but offered to make referrals to [facility] to screen for community [place] and SNF [place]. agreed. SW also can refer to [facility] Care Coordination program for resources that pt is eligibility for in the home. agreed. Both will contact for information. also inquired about days for Medicare in TCU. SW explained pt has [place] and insurance will issue LCD with 2 day notice. stated pt has stent removal procedure scheduled on 11/26 and recommended monitoring afterward for risk of infection or bleeding. ideally would like pt to remain in TCU but stated pt has a $210/day copay beginning on day 21. SW explored further and recommended to contact [place] directly to get that specific information. agreed. SW noted day 21 (the potential start of those copays) is 11/27. Discussed risk/benefit of paying copay or DC home after procedure. If insurance continues to approve, discussed estimated DC 11/29. to notify this worker of copay coverage and await phone calls from [place] and LAURIE, then this worker will discuss next steps based on those outcomes. expressed great appreciation of this worker's time and assistance. is meeting with Dr. Aguilar this evening to get further information on Dementia dx and possible type. voiced it is so nice to know there is something actually going on with Bill so that I don't feel like I'm just complaining about my . SW validated 's feelings and the affirmation a dx can provide, along with education on that dx. agreed. SW will continue to follow. Time Spent: 50 minutes Margarita DÍAZ
[2024-11-19 20:19] VITALS: BP 138/81; PULSE 84
[2024-11-19] MEDS: Latanoprost 0.005% 1 Bottle 1 DRP EACH EYE (20:19)
[2024-11-19] MEDS: Albuterol IH (6.7 GM) 1 PUFF INHALER 2 PUFF INHALATION (20:19)
[2024-11-19] MEDS: MELATONIN 10 MG TABLET PO (20:22)
[2024-11-19 20:29] VITALS: BP 138/81; PULSE 84
[2024-11-20 08:23] VITALS: BP 126/76; PULSE 86; RESP 16; TEMP 36.7; O2SAT 100
[2024-11-20] MEDS: Vitamin B Comp W-C Capsule 1 CAP PO (08:26)
[2024-11-20 08:27] VITALS: PULSE 86
[2024-11-20] MEDS: Metoprolol(XL)Succ 25 MG Tablet PO ×2 (08:27→20:59)
[2024-11-20] MEDS: Timolol 0.5% 5ML OPTH.BTL 1 DRP EACH EYE ×2 (08:27→20:52)
[2024-11-20] MEDS: Memantine Hydrochloride 5 MG Tablet PO ×2 (08:27→20:55)
[2024-11-20] MEDS: Senna/Docusate Sodium 1 Tablet 2 TABLET PO ×2 (08:27→20:55)
[2024-11-20] MEDS: Ensure Plus High Protein 120 ML LIQUID PO ×4 (08:30→20:51)
--- NOTE | 2024-11-20 10:28 | CASEMGMT ---
Social Work SW phoned to follow up copay information. SW obtained copay amount - days 21-100 are $214/day. appreciative. confirmed, that if insurance allows, the goal DC is 11/29 to avoid paying additional days of copays. SW agreed to coordinate DC for that time. SW inquired if she had a productive conversation with Dr. Aguilar last evening. confirmed and expressed gratitude for the education on dx of frontotemporal Dementia. Dr explained this is the same dx as Luke Hernandez, and it naturally progresses quickly with less than desirable traits. stated she has noticed pt declining day-by-day, though, contrarily, pt can still have good days. noted she blames the sepsis for the decline. SW explained that baseline, like the Dementia, can be exacerbated by other issues, such as the sepsis or kidney issues. expressed understanding. stated she has followed Luke Hernandez' case and it didn't seem to be going very fast. SW did a quick Google search and educated he was dx in 2022 and within 2 years, he is not unable to speak, for example. SW offered that pt saw Dr. Davila in March 2024, it is now November 2024, and noted pts daily decline, that in another year, the pt may have different needs. appreciative of that perspective, and stated Dr Aguilar mentioned hospice, though pt is not ready yet for hospice. SW educated that while hospice is not likely appropriate at this time since pt still voices interest in pursuing life-sustaining treatment, hospice is elected when the pt wants to stop those measures, focus on comfort care and quality of life. Patients can remain on hospice services for years, and hospice offers robust services that provide support to the pt and well before the end of life treatment. expressed understanding and appreciative of the education. SW offered to provide with education on frontotemporal Dementia, support groups for caregivers. agreed and appreciative. SW concluded conversation with setting DC date for 11/29, pending ongoing insurance approval. SW will remain available for ongoing SW needs. - ROSA M provided support groups and education in pt's room. Plan: DC home with 11/29 Margarita Lozada QUARANTINE OFFICER COPYMAN
--- NOTE | 2024-11-20 14:39 | CASEMGMT ---
Addendum entered by Margarita Lozada 11/20/24 16:00: Fauzia from [facility] updated this worker that pt will need a QIT for SNF Medicaid, and a spend down of a managed money account, this pt is not eligible for [place]. Original Note: Social Work LAURIE spoke with and provided resources for the [facility], pro senior legal, and hospice, and an assessment with be scheduled for LASER BEAM COLOR SCANNER OPERATOR services. Margarita Lozada NUT DEHYDRATOR OPERATOR HAIR MACHINE OPERATOR
--- NOTE | 2024-11-20 17:59 | NUR.TO.PHY ---
here and asked for pts tylenol that she brought from home. Educated pt and on [facility] policy, unable to administer home meds while here on TCU. Explained that pt has PRN order of Tylenol and we will use our stock. Removed pts Tylenol from TCU med room and returned to in sealed pharmacy bag. 1000mg of tylenol given per pt request for back pain 04/28. and pt verbalized understanding of [facility] policy/procedure.
--- NOTE | 2024-11-20 18:03 | NURSING ---
pt refuses to sit up and eat meal in a chair, pt will lay in bed with HOB elevated to 45-60degrees only. educated pt on risk of aspiration/choking, pt remains noncompliant.
[2024-11-20] MEDS: Albuterol IH (6.7 GM) 1 PUFF INHALER 2 PUFF INHALATION (20:52)
[2024-11-20] MEDS: Latanoprost 0.005% 1 Bottle 1 DRP EACH EYE (20:52)
[2024-11-20] MEDS: MELATONIN 10 MG TABLET PO (20:55)
[2024-11-20 20:59] VITALS: BP 134/80; PULSE 82
[2024-11-20 21:00] VITALS: PULSE 84; RESP 16; O2SAT 96
[2024-11-20 21:03] VITALS: BP 134/80; PULSE 82
[2024-11-21 02:05] VITALS: RESP 16
[2024-11-21] MEDS: Ensure Plus High Protein 120 ML LIQUID PO ×4 (08:38→20:10)
[2024-11-21] MEDS: Vitamin B Comp W-C Capsule 1 CAP PO (08:39)
[2024-11-21] MEDS: Memantine Hydrochloride 5 MG Tablet PO ×2 (08:40→20:16)
[2024-11-21] MEDS: Senna/Docusate Sodium 1 Tablet 2 TABLET PO ×2 (08:41→20:14)
[2024-11-21] MEDS: Timolol 0.5% 5ML OPTH.BTL 1 DRP EACH EYE ×2 (08:41→20:07)
[2024-11-21 08:42] VITALS: BP 128/82; PULSE 85
[2024-11-21] MEDS: Metoprolol(XL)Succ 25 MG Tablet PO ×2 (08:42→20:16)
[2024-11-21 09:58] VITALS: BP 128/82; PULSE 85; RESP 16; TEMP 36.7; O2SAT 97
[2024-11-21 20:05] VITALS: BP 139/76; PULSE 79
[2024-11-21] MEDS: Albuterol IH (6.7 GM) 1 PUFF INHALER 2 PUFF INHALATION (20:06)
[2024-11-21] MEDS: Latanoprost 0.005% 1 Bottle 1 DRP EACH EYE (20:09)
[2024-11-21] MEDS: MELATONIN 10 MG TABLET PO (20:12)
[2024-11-21 20:16] VITALS: BP 139/76; PULSE 79
[2024-11-22] MEDS: Ensure Plus High Protein 120 ML LIQUID PO ×3 (06:58→20:07)
[2024-11-22 07:53] LABS: Hematocrit 37.4 % (40-54); Hemoglobin 12.7 g/dL (13.0-16.5); Immature Granulocytes Count 0.100 X10^3/uL (0.0-0.0); Mean Corp Hgb Conc 34.0 g/dL (32-36); Mean Corpuscular Volume 101.6 fL (80-94); Mean Platelet Vol. 8.9 fl (6.2-12.0); NRBC Flagged by Analyzer 0 % (0-5); Platelet Count 195 K/mm3 (150-450); RBC Distribution Width CV 13.5 % (11.6-14.6); RBC Distribution Width SD 50.4 fl (35.1-43.9); Red Blood Count 3.68 M/mm3 (4.6-6.2); White Blood Count 7.9 K/mm3 (4.4-11.0)
[2024-11-22 08:35] LABS: Anion Gap 11 (5-15); BUN 38 mg/dL (4-19); BUN/Creat Ratio 30.9 RATIO (10-20); Calcium,Total 9.3 mg/dL (7.6-11.0); Carbon Dioxide 22.8 mmol/L (21.0-32.0); Chloride 105 mmol/L (98-108); Estimated Creatinine Clearance 47.11 ml/min (50-250); Glucose 126 mg/dL (70-99); Potassium 4.4 mmol/L (3.3-5.1)
[2024-11-22 09:40] VITALS: BP 149/86; PULSE 81
[2024-11-22] MEDS: Timolol 0.5% 5ML OPTH.BTL 1 DRP EACH EYE ×2 (09:40→20:07)
[2024-11-22] MEDS: Metoprolol(XL)Succ 25 MG Tablet PO ×2 (09:40→20:11)
[2024-11-22] MEDS: Senna/Docusate Sodium 1 Tablet 2 TABLET PO ×2 (09:41→20:12)
[2024-11-22] MEDS: Vitamin B Comp W-C Capsule 1 CAP PO (09:41)
[2024-11-22] MEDS: Memantine Hydrochloride 5 MG Tablet PO ×2 (09:41→20:11)
[2024-11-22 13:09] VITALS: BP 149/85; PULSE 81; RESP 18; TEMP 36.8; O2SAT 94
[2024-11-22 20:00] VITALS: PULSE 80; O2SAT 96
[2024-11-22 20:04] VITALS: BP 123/69; PULSE 80
[2024-11-22] MEDS: Albuterol IH (6.7 GM) 1 PUFF INHALER 2 PUFF INHALATION (20:07)
[2024-11-22] MEDS: Latanoprost 0.005% 1 Bottle 1 DRP EACH EYE (20:08)
[2024-11-22 20:11] VITALS: BP 123/69; PULSE 80
[2024-11-22] MEDS: MELATONIN 10 MG TABLET PO (20:13)
[2024-11-22 22:02] VITALS: O2SAT 96
[2024-11-23] MEDS: Ensure Plus High Protein 120 ML LIQUID PO ×4 (04:37→20:12)
[2024-11-23 04:43] VITALS: PULSE 78; O2SAT 95
[2024-11-23 10:37] VITALS: PULSE 85
[2024-11-23] MEDS: Metoprolol(XL)Succ 25 MG Tablet PO ×2 (10:37→20:18)
[2024-11-23] MEDS: Memantine Hydrochloride 5 MG Tablet PO ×2 (10:37→20:17)
[2024-11-23] MEDS: Vitamin B Comp W-C Capsule 1 CAP PO (10:38)
[2024-11-23] MEDS: Timolol 0.5% 5ML OPTH.BTL 1 DRP EACH EYE ×2 (10:39→20:14)
[2024-11-23] MEDS: Senna/Docusate Sodium 1 Tablet 2 TABLET PO ×2 (10:40→20:18)
[2024-11-23 16:00] VITALS: BP 132/72; PULSE 75; RESP 18; TEMP 36.6; O2SAT 95
--- NOTE | 2024-11-23 18:46 | NURSING ---
OK per Dr. Aguilar for bed alarm, chair alarm, camera. Pt will self transfer.
[2024-11-23 20:11] VITALS: BP 124/76; PULSE 78
[2024-11-23] MEDS: Albuterol IH (6.7 GM) 1 PUFF INHALER 2 PUFF INHALATION (20:13)
[2024-11-23] MEDS: Latanoprost 0.005% 1 Bottle 1 DRP EACH EYE (20:14)
[2024-11-23] MEDS: MELATONIN 10 MG TABLET PO (20:16)
[2024-11-23 20:18] VITALS: BP 124/76; PULSE 78
[2024-11-23 23:10] VITALS: O2SAT 95
[2024-11-24] MEDS: Ensure Plus High Protein 120 ML LIQUID PO ×3 (05:19→20:13)
[2024-11-24 09:07] VITALS: BP 138/72; PULSE 84; RESP 17; TEMP 36.8; O2SAT 96
[2024-11-24] MEDS: Vitamin B Comp W-C Capsule 1 CAP PO (09:10)
[2024-11-24 09:11] VITALS: PULSE 84
[2024-11-24] MEDS: Senna/Docusate Sodium 1 Tablet 2 TABLET PO (09:11)
[2024-11-24] MEDS: Memantine Hydrochloride 5 MG Tablet PO ×2 (09:11→20:19)
[2024-11-24] MEDS: Metoprolol(XL)Succ 25 MG Tablet PO ×2 (09:11→20:18)
[2024-11-24] MEDS: Timolol 0.5% 5ML OPTH.BTL 1 DRP EACH EYE ×2 (09:13→20:14)
--- NOTE | 2024-11-24 15:32 | NURSING ---
palliative nurse here to meet with per request after speaking with dr medina last week regarding her husbands condition.
[2024-11-24 20:00] VITALS: PULSE 84; O2SAT 95
[2024-11-24 20:08] VITALS: BP 124/74; PULSE 81; O2SAT 95
[2024-11-24] MEDS: Albuterol IH (6.7 GM) 1 PUFF INHALER 2 PUFF INHALATION (20:13)
[2024-11-24] MEDS: Latanoprost 0.005% 1 Bottle 1 DRP EACH EYE (20:14)
[2024-11-24 20:18] VITALS: BP 124/74; PULSE 81
[2024-11-24] MEDS: MELATONIN 10 MG TABLET PO (20:20)
[2024-11-25 02:00] VITALS: BMI 27.6
[2024-11-25] MEDS: Ensure Plus High Protein 120 ML LIQUID PO ×4 (06:39→20:05)
[2024-11-25 06:45] VITALS: PULSE 82; O2SAT 94
[2024-11-25 09:00] VITALS: BP 139/75; PULSE 79; RESP 18; TEMP 37.1; O2SAT 96
[2024-11-25] MEDS: Memantine Hydrochloride 5 MG Tablet PO ×2 (09:04→20:06)
[2024-11-25 09:05] VITALS: PULSE 79
[2024-11-25] MEDS: Vitamin B Comp W-C Capsule 1 CAP PO (09:05)
[2024-11-25] MEDS: Metoprolol(XL)Succ 25 MG Tablet PO ×2 (09:05→20:04)
[2024-11-25] MEDS: Timolol 0.5% 5ML OPTH.BTL 1 DRP EACH EYE ×2 (09:06→20:03)
--- NOTE | 2024-11-25 09:10 | CASEMGMT ---
Social Work SW followed up with [facility] on visit last evening with pt and . Informational meeting was conducted and both are interested in hospice services at DC, but no consents signed. SW to follow up on DC plans. Insurance approved with [facility] 11/27, thus can proceed with finalizing DC for 11/29. Margarita Lozada EMERGENCY VETERINARY TECHNICIAN SECTION PLOTTER OPERATOR
--- NOTE | 2024-11-25 10:46 | CASEMGMT ---
Social Work ROSA M received call from pt's to follow up on DC plans. stated she spoke with the Drs office who is performing the stent procedure on 11/[address] pt does not need to remain in TCU for that monitoring, and pt is asking to DC home earlier. SW confirmed pt can elect to DC prior, and inquired about hospice conversation. stated she and pt agreed to hospice at DC. SW offered to DC 11/27. stated she would prefer 11/28. SW agreeable and will notify hospice for SOC after pt arrives home. very appreciative of this worker's assistance. will transport home about noon. - ROSA M updated Cara at [facility] of DC date and time of DC to coordinate nurse. Plan: DC home with 11/28, [facility] Margarita LAINEZW
[2024-11-25] MEDS: Senna/Docusate Sodium 1 Tablet 2 TABLET PO (20:01)
[2024-11-25 20:04] VITALS: BP 132/79; PULSE 74
[2024-11-25] MEDS: Latanoprost 0.005% 1 Bottle 1 DRP EACH EYE (20:04)
[2024-11-25] MEDS: Albuterol IH (6.7 GM) 1 PUFF INHALER 2 PUFF INHALATION (20:06)
[2024-11-25] MEDS: MELATONIN 10 MG TABLET PO (20:06)
--- NOTE | 2024-11-25 20:11 | DS.PCM_ITS ---
Providers Date of Admission: 11/07/24 Primary Care Physician: Dr. Julio Mera MD Reason For Visit: PYELONEPHROTOS Diagnosis Discharge Diagnosis (1) Debility: Status: Acute Code(s): R53.81 - Other malaise (2) Sepsis: Status: Acute Code(s): A41.9 - Sepsis, unspecified organism (3) Fungemia: Status: Acute Code(s): B49 - Unspecified mycosis (4) DIAN (acute kidney injury): Status: Acute Code(s): N17.9 - Acute kidney failure, unspecified (5) Right ureteral stone: Status: Acute Code(s): N20.1 - Calculus of ureter (6) Pyelonephritis: Status: Acute Code(s): N12 - Tubulo-interstitial nephritis, not specified as acute or chronic (7) Hyperkalemia: Status: Acute Code(s): E87.5 - Hyperkalemia (8) Dementia, unspecified, without behavioral disturbance: Status: Acute Code(s): F03.90 - Unspecified dementia, unspecified severity, without behavioral disturbance, psychotic disturbance, mood disturbance, and anxiety (9) Depression: Status: Acute Code(s): F32.A - Depression, unspecified (10) Chronic heart failure with preserved ejection fraction (HFpEF): Status: Acute Code(s): I50.32 - Chronic diastolic (congestive) heart failure (11) Essential hypertension: Status: Chronic Code(s): I10 - Essential (primary) hypertension (12) Hyperlipidemia: Status: Chronic Code(s): E78.5 - Hyperlipidemia, unspecified Qualifiers: Hyperlipidemia type: mixed hyperlipidemia Qualified Code(s): E78.2 - Mixed hyperlipidemia (13) BPH (benign prostatic hyperplasia): Status: Acute Code(s): N40.0 - Benign prostatic hyperplasia without lower urinary tract symptoms (14) Gout: Status: Acute Code(s): M10.9 - Gout, unspecified (15) Glaucoma: Status: Acute Code(s): H40.9 - Unspecified glaucoma (16) Anxiety: Status: Acute Code(s): F41.9 - Anxiety disorder, unspecified (17) Asthma: Status: Acute Code(s): J45.909 - Unspecified asthma, uncomplicated Plan 79 year old male with below past medical history hospitalized for sepsis, ghada fungemia, pyelonephritis, complicated by right ureteral stone, right hydronephrosis, acute kidney injury, hyperkalemia, admitted to TCU with debility, here for rehabilitation, strengthening, prior to discharge home with . * Debility - PT/OT. * Pain - Tylenol 1000mg q6 prn pain (1-10). * Bowel - senna/colace 1 tablet bid, Magnesium citrate 300mL daily prn. * Adult immunization - Administer pneumonia vaccine, covid vaccine, flu vaccine as appropriate. * DVT prophylaxis - Lovenox 30mg sc daily. * Asthma - Albuterol 2 puffs qhs. * Gout - Allopurinol 300mg daily. * Hypertension - Metoprolol succinate 25mg bid, Amlodipine 5mg daily. * Vitamin C deficiency - Vitamin C 500mg daily. * Coronary artery disease s/p stent - Metoprolol succinate 25mg bid, Aspirin 81mg daily. * Hyperlipidemia - Atorvastatin 20mg qhs. * Cough - Tessalon perles 100mg q8 prn. * Alzheimer Disease - Donepezil 10mg qhs, Memantind 5mg bid. 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 * Glaucoma - Latanoprost 1gtt ou qhs, Timolol 1gtt ou bid. * BPH - Tamsulosin 0.4mg daily. * Leg cramps - Vitamin B complex daily. The following psychotropic medication was present on admission: Buspar 7.5mg bid. Psychotropic medication therapy is indicated for a diagnosis of: Anxiety. Based on my clinical evaluation, continuation of the medication is necessary at this time. Gradual dose reduction plan (select one): ____ GDR will be attempted. Will monitor patient symptoms and behaviors in response to GDR. __x__ GRD contraindicated. Reason contraindicated: stable chronic shelter use. Medications at Discharge Home Medications allopurinol 300 mg tablet 300 mg PO DAILY gout 04/12/23 donepezil 10 mg tablet 10 mg PO QHS dementia 04/12/23 memantine 5 mg tablet 5 mg PO BID dementia 04/12/23 tamsulosin 0.4 mg capsule 0.4 mg PO DAILY urination 04/12/23 timolol maleate 0.5 % eye drops 1 drp ophthalmic (eye) BID eye health 04/12/23 buspirone 7.5 mg tablet 7.5 mg PO BID anxiety 09/11/23 metoprolol succinate 25 mg tablet,extended release 24 hr 25 mg PO BID BP 12/12/23 latanoprost 0.005 % eye drops 1 drp ophthalmic (eye) QHS eyes 09/18/24 CPAP - Continuous Positive Airway Pressure([facility] INFORMATIONAL USE ONLY) 11/10/24 acetaminophen 500 mg tablet 1,000 mg (2 x 500 mg) PO Q6H PRN PRN Pain Score 1-10 #0 tabs 11/25/24 albuterol sulfate 90 mcg/actuation aerosol inhaler 2 puff inhalation QHS 30 days #18 grams 11/25/24 amlodipine 5 mg tablet 5 mg PO DAILY 30 days #30 tabs 11/25/24 dextromethorphan-guaifenesin 10 mg-100 mg/5 mL oral syrup 10 ml PO Q6H PRN PRN Cough #0 mL 11/25/24 melatonin 10 mg disintegrating tablet 10 mg PO QHS #0 tabs 11/25/24 mirtazapine 15 mg tablet 7.5 mg (1/2 x 15 mg) PO QHS 30 days #15 tabs 11/25/24 Hospital Course Operations None Procedures None Summary of Care Provided Minutes Spent on Discharge: 35 Hospital Course: 79 year old male with below past medical history hospitalized for sepsis, ghada fungemia, pyelonephritis, complicated by right ureteral stone, right hydronephrosis, acute kidney injury, hyperkalemia, admitted to TCU with debility, here for rehabilitation, strengthening, prior to discharge home with . I discussed with resident spouse, that prognosis for frontotemporal dementia is poor, and no good treatments are available, recommended consulting hospice earlier rather than later to help Bill be comfortable in his own home. Discharge home with 11/28/2024, [facility]. Physical Exam Const alert General Appearance: cooperative HEENT normocephalic Eyes PERRL and EOMs intact bilaterally Neck supple, no JVD and no carotid bruits Resp normal respiratory effort, normal air movement and clear to auscultation bilaterally Cardio regular rate and regular rhythm GI normal to inspection, nondistended, normoactive bowel sounds, non-tender and non-distended Extremity normal capillary refill General Extremity: Negative for edema Skin no rashes or lesions noted General Skin Exam: no breakdown Psych affect normal Appearance: appropriate Medical Records Data Medical Nutrition Assessment Dietitian: Malnutrition Criteria Met Start: 11/08/24 16:19 Freq: Status: Active Protocol: Document 11/08/24 16:19 TERRI (Rec: 11/08/24 16:19 TERRI [id number]) Nutrition Malnutrition Evidence of Yes Malnutrition Exists Malnutrition ( Acute Illness/Injury moderate): Evidenced By Suboptimal Energy Intake (Moderate),Weight Loss (Severe ) Clinical Problem Acute Disease or Injury Related Malnutrition Etiology related to physiological changes impacting appetite and oral intakes Signs/Symptoms as evidenced by significant weight loss of 11.9% or 24lb since 10/19/24 weight per EMR weight history and report of decreased appetite and oral intakes x 3 weeks with estimated intakes meeting less than 75% of nutrient needs. Status Active Problem Recommendation Dietitian Continue with Regular - General diet for liberalization Recommendations/ . Will order EPHP 120mL TID with medpass to help Changes increase oral intakes. Will continue to follow, monitor oral intakes and modify nutrition interventions as needed. Weight / BMI Weight Weight: 82.508 kg Body Mass Index (BMI) 27.6 ABG / Lab / Microbiology Data 11/22/24 07:35 11/22/24 07:35 Microbiology: Microbiology 11/11/24 18:40 Urine, Catheterized Urine Culture - Final Gram Positive Cocci 11/10/24 05:48 Nasal Secretion SARS-CoV-2 Antigen (Rapid) - Final 11/08/24 05:57 Nasal Secretion SARS-CoV-2 Antigen (Rapid) - Final D/C Instructions Discharge Activity: Return to Normal Activity, May Shower and Use Walker Weight Bearing Status: Weight bearing as tolerated Call your doctor if you observe: Fever of 101 or Higher, Inability to urinate, Inability to have a bowel movement, Shortness of breath, Dizziness, Fainting spells, Swelling in the ankles, Chest pain and Uncontrolled pain DC O2, CPAP, BIPAP Needs Home O2 Discharge instructions: No Additional Instructions: Discharge home with 11/28/2024, [facility]. Please Follow Up With: [facility] When: Cancel. Meaningful Use Info Meaningful Use Meaningful Use Diagnoses (Choose all that apply): None applicable Discharge Plan Admission Admit Date/Time: 11/07/24 20:08 Primary Reason for Your Visit: Debility. Attending Provider: Andrzej Aguilar Chi Primary Care Provider: Julio Mera Instructions Additional Instructions / Restrictions: Discharge home with 11/28/2024, [facility]. Discharge Orders/Prescriptions Prescriptions: New acetaminophen 500 mg Tablet 1,000 mg PO Q6H PRN PRN (Reason: Pain Score 1-10) Qty: 0 0RF dextromethorphan-guaifenesin 10-100 mg/5 mL Syrup 10 ml PO Q6H PRN PRN (Reason: Cough) Qty: 0 0RF amlodipine 5 mg Tablet 5 mg PO DAILY 30 Days Qty: 30 0RF albuterol sulfate 90 mcg/actuation Hfa Aerosol Inhaler 2 puff inhalation QHS 30 Days Qty: 18 0RF melatonin 10 mg Tablet,Disintegrating 10 mg PO QHS Qty: 0 0RF mirtazapine 15 mg Tablet 7.5 mg PO QHS 30 Days Qty: 15 0RF Continued buspirone 7.5 mg tablet 7.5 mg PO BID metoprolol succinate 25 mg tablet extended release 24 hr 25 mg PO BID latanoprost 0.005 % drops 1 drp ophthalmic (eye) QHS allopurinol 300 mg tablet 300 mg PO DAILY Patient Comments: take 1 tablet by mouth once daily donepezil 10 mg tablet 10 mg PO QHS Patient Comments: take 1 tablet by mouth at bedtime memantine 5 mg tablet 5 mg PO BID Patient Comments: take 1 tablet by mouth twice a day tamsulosin 0.4 mg capsule 0.4 mg PO DAILY Patient Comments: take 1 capsule by mouth once daily timolol maleate 0.5 % drops 1 drp ophthalmic (eye) BID Patient Comments: instill 1 drop into both eyes twice a day Discontinued losartan 25 mg tablet 25 mg PO DAILY Qty: 90 3RF vitamin B complex Tablet 1 tab PO DAILY atorvastatin 20 mg tablet 20 mg PO DAILY Patient Comments: take 1 tablet by mouth once daily aspirin 81 mg capsule 81 mg PO DAILY benzonatate 100 mg capsule 100 mg PO Q8H PRN PRN (Reason: cough) fluoride (sodium) 1.1 % gel 1 applic PO QHS fluticasone furoate-vilanterol [Breo Ellipta] 100-25 mcg/dose blister with device 1 ea INHALATION DAILY cyanocobalamin-liver extract Tablet 1 tab PO BID Hilton-3 Fish Oil 300-1,000 mg capsule 1 cap PO BID garlic 580 mg capsule 48 mg PO DAILY Jardiance 10 mg tablet 10 mg PO QAM Qty: 90 3RF No Action (DME) CPAP - Continuous Positive Airway Pressure([facility] INFORMATIONAL USE ONLY) Device See Rx Instructions .Route Patient Comments: Settings: CPAP 11 with 2L bleed in Mask: Medium Full Face, unsure of equine vet/name DME: Unknown Rx Instructions: As directed Referrals / Follow Up: Julio Mera MD [Primary Care Provider] - Disposition Disposition (needs filled in before D/C Order can be placed): Hospice in Home
[2024-11-26 07:28] VITALS: BP 161/79; PULSE 78; RESP 20; TEMP 36.6; O2SAT 94
[2024-11-26] MEDS: Vitamin B Comp W-C Capsule 1 CAP PO (07:29)
[2024-11-26 07:31] VITALS: PULSE 78
[2024-11-26] MEDS: Memantine Hydrochloride 5 MG Tablet PO ×2 (07:31→20:23)
[2024-11-26] MEDS: Metoprolol(XL)Succ 25 MG Tablet PO ×2 (07:31→20:20)
[2024-11-26] MEDS: Senna/Docusate Sodium 1 Tablet 2 TABLET PO (07:31)
[2024-11-26] MEDS: Timolol 0.5% 5ML OPTH.BTL 1 DRP EACH EYE ×2 (07:31→20:17)
[2024-11-26] MEDS: Ensure Plus High Protein 120 ML LIQUID PO ×3 (07:33→20:18)
--- NOTE | 2024-11-26 08:57 | NURSING ---
R' LEFT UNIT TO GO TO UROLOGY APPT WITH AT 0840.
--- NOTE | 2024-11-26 12:50 | NURSING ---
Addendum entered by Gisselle Laguerre 11/26/24 13:11: N.O. FROM [facility] TO F/U IN 3MONTHS-RENAL ULTRASOUND. ALSO, TRIMETHOPRIM 100MG BID X1 DAY. Original Note: R' BACK FROM APPT AT THIS TIME.
[2024-11-26 20:00] VITALS: PULSE 80; O2SAT 96
[2024-11-26 20:15] VITALS: BP 131/72; PULSE 77
[2024-11-26] MEDS: Latanoprost 0.005% 1 Bottle 1 DRP EACH EYE (20:17)
[2024-11-26] MEDS: Albuterol IH (6.7 GM) 1 PUFF INHALER 2 PUFF INHALATION (20:17)
[2024-11-26 20:20] VITALS: BP 131/72; PULSE 77
[2024-11-26] MEDS: MELATONIN 10 MG TABLET PO (20:23)
[2024-11-27] MEDS: Ensure Plus High Protein 120 ML LIQUID PO ×4 (06:36→20:03)
[2024-11-27 06:48] VITALS: PULSE 74; O2SAT 95
[2024-11-27 09:41] VITALS: BP 140/81; PULSE 80; RESP 17; TEMP 37.2; O2SAT 94
[2024-11-27] MEDS: Vitamin B Comp W-C Capsule 1 CAP PO (09:43)
[2024-11-27] MEDS: Memantine Hydrochloride 5 MG Tablet PO ×2 (09:43→20:06)
[2024-11-27 09:44] VITALS: PULSE 80
[2024-11-27] MEDS: Timolol 0.5% 5ML OPTH.BTL 1 DRP EACH EYE ×2 (09:44→20:07)
[2024-11-27] MEDS: Metoprolol(XL)Succ 25 MG Tablet PO ×2 (09:44→20:06)
--- NOTE | 2024-11-27 10:01 | CASEMGMT ---
Social Work SW completed BIMS () and PHQ-2 () for MDS assessment. Margarita Lozada MARKETING [employer] AND ENTERTAINMENT RADIOLOGIC TECH
--- NOTE | 2024-11-27 10:42 | MDS.RN ---
Pain assessment for MDS complete.
--- NOTE | 2024-11-27 12:17 | NURSING ---
Addendum entered by Radha Solis 11/27/24 18:29: dr medina ordered medrol dose krys, 1st loading dose given now. Original Note: therapy reported pt moving slower and c/o rt foot/leg pain. pt described pain from top of RT foot down into great toe. small amt of redness to outer medial cuneiform, slight edema to foot. message left for dr medina.
[2024-11-27 17:54] VITALS: TEMP 37.2
[2024-11-27] MEDS: MethylPREDNISolone DosePak 4 MG BOX PO (18:27)
[2024-11-27] MEDS: Latanoprost 0.005% 1 Bottle 1 DRP EACH EYE (20:03)
[2024-11-27 20:06] VITALS: BP 131/69; PULSE 82
[2024-11-27] MEDS: MELATONIN 10 MG TABLET PO (20:06)
[2024-11-27] MEDS: Senna/Docusate Sodium 1 Tablet 2 TABLET PO (20:07)
[2024-11-27] MEDS: Albuterol IH (6.7 GM) 1 PUFF INHALER 2 PUFF INHALATION (20:09)
[2024-11-28] MEDS: Ensure Plus High Protein 120 ML LIQUID PO ×2 (06:18→11:02)
[2024-11-28 06:22] VITALS: PULSE 72; RESP 16; O2SAT 94
--- NOTE | 2024-11-28 08:49 | NURSING ---
Attempted to schedule a f/u appt with pt Neurologist Dr Davila and [facility] new policy is patient has to call to set it up. will notify while reviewing discharge instructions.
[2024-11-28 09:13] VITALS: BP 147/69; PULSE 84; RESP 16; TEMP 36.5; O2SAT 95
[2024-11-28] MEDS: Vitamin B Comp W-C Capsule 1 CAP PO (09:16)
[2024-11-28] MEDS: MethylPREDNISolone DosePak 4 MG BOX PO ×2 (09:16→11:02)
[2024-11-28 09:17] VITALS: PULSE 84
[2024-11-28] MEDS: Metoprolol(XL)Succ 25 MG Tablet PO (09:17)
[2024-11-28] MEDS: Memantine Hydrochloride 5 MG Tablet PO (09:17)
[2024-11-28] MEDS: Timolol 0.5% 5ML OPTH.BTL 1 DRP EACH EYE (09:18)
== END 2024-11-28 12:35 | disposition hospice, home (50) | DRG 689 ==
PROVIDERS: Admitting Provider Family Medicine Geriatric Medicine; PCP Family Medicine; Visit Provider Family Medicine Geriatric Medicine
DX: N13.6 Pyonephrosis (principal); B37.7 Candidal sepsis; E44.1 Mild protein-calorie malnutrition; I50.32 Chronic diastolic (congestive) heart failure; I11.0 Hypertensive heart disease with heart failure; F02.80 Dementia in other diseases classified elsewhere, unspecified severity, without behavioral disturbance, psychotic disturbance, mood disturbance, and anxiety; F32.A Depression, unspecified; J45.909 Unspecified asthma, uncomplicated; E87.5 Hyperkalemia; I25.10 Atherosclerotic heart disease of native coronary artery without angina pectoris; M10.071 Idiopathic gout, right ankle and foot; G30.9 Alzheimer's disease, unspecified; F41.9 Anxiety disorder, unspecified; E78.2 Mixed hyperlipidemia; H40.9 Unspecified glaucoma; N40.0 Benign prostatic hyperplasia without lower urinary tract symptoms; Z79.899 Other long term (current) drug therapy; Z79.51 Long term (current) use of inhaled steroids; G47.00 Insomnia, unspecified; Z68.27 Body mass index [BMI] 27.0-27.9, adult
CPT/HCPCS: 36415; 80048; 81001; 85025; 87077; 87086; 87088; 87811; 92507; 92523; 97110; 97116; 97129; 97161; 97166; 97530; 97535; 97802

== ENCOUNTER → 2024-11-14 | Outpatient (CLI) | payer MEDICARE, SELFPAY ==
--- NOTE | 2024-11-14 10:30 | CT_ITS ---
PROCEDURE: BRAIN/HEAD WITHOUT CONTRAST 11/14/2024 REASON FOR EXAM: ALTERED MENTAL STATUS, UNSPECIFIED TECHNIQUE: BRAIN/HEAD WITHOUT CONTRAST Coronal and Sagittal reconstruction series were provided. One or more dose reduction techniques were used (e.g., Automated exposure control, adjustment of the mA and/or kV according to patient size, use of iterative reconstruction technique. RADIATION DOSE SUMMARY: CTDlvol: 44.99 mGy DLP: 812.98 mGycm COMPARISON: April 12, 2023. FINDINGS: Brain: Low density in the periventricular white matter suggests mild chronic small vessel ischemic changes. No acute territorial infarction. No intracranial hemorrhage. No mass-effect or midline shift. No ventriculomegaly. CSF Spaces: Moderate generalized cerebral atrophy Sinuses/Mastoids: Mucosal thickening of the right frontal sinus and ethmoidal cells. The mastoid cells are clear. Bones: No acute bony abnormalities. CT/Brain/Head without Contrast IMPRESSION: No acute intracranial abnormalities. Reading Location: [id number]
== END | disposition home or self-care (01) ==
PROVIDERS: PCP Family Medicine; Referring Provider Family Medicine Geriatric Medicine; Visit Provider Family Medicine Geriatric Medicine
DX: R41.82 Altered mental status, unspecified (principal)
CPT/HCPCS: 70450

== ENCOUNTER 2024-12-23 05:35 | Emergency (ER) | payer MEDICARE, SELFPAY ==
[2024-12-23] VITALS (14 sets, daily range): BP systolic 116–148; BP diastolic 51–85; PULSE 50–79; RESP 19–32; TEMP -6.6–36.4; O2SAT 84–100; BMI 29.2
--- NOTE | 2024-12-23 05:54 | CT_ITS ---
PROCEDURE: ABDOMEN/PELVIS WITHOUT CONT 12/23/2024 REASON FOR EXAM: LEFT FLANK PAIN TECHNIQUE: Procedure Code: [id number] Modality: CT Procedure: ABDOMEN/PELVIS WITHOUT CONT Noncontrast technique limits evaluation of the abdominal and pelvic viscera. Coronal and Sagittal reconstruction series were provided. One or more dose reduction techniques were used (e.g., Automated exposure control, adjustment of the mA and/or kV according to patient size, use of iterative reconstruction technique). RADIATION DOSE SUMMARY: CTDlvol: 26 mGy DLP: 777 mGycm COMPARISON: October 19, 2024 FINDINGS: Lung bases: Calcified granulomas right lower lobe, right hilum. Subsegmental atelectasis both lower lobes. Liver: Mild atrophy of the anterior segment right hepatic lobe with colonic interposition. This is benign. Liver is otherwise normal. Gallbladder: Normal Spleen: Splenic granulomas. Pancreas: Normal Adrenals: Normal Kidneys: Bilateral renal calculi with calculi of the upper, mid and lower pole with the largest of the right lower pole measuring 14 x 7 mm. Simple cyst right midpole is 5.7 x 4.5 cm. Simple cysts left upper pole is 2.5 x 2.2 cm. Bladder: Normal Reproductive Organs: Some dystrophic calcification is seen in the prostate gland. Bowel: Stomach is normal. Duodenal diverticulum is approximately 3.1 x 1.9 x 2.0 cm containing fluid and debris. Small bowel is otherwise normal. Scattered colonic diverticula without diverticulitis. Incidentally, there is a large right inguinal hernia containing nonincarcerated small bowel and fat of the terminal ileum. Appendix: In the hernia sac but otherwise normal. Lymph nodes: None appear enlarged. Vasculature: Severe atherosclerosis. 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 Peritoneum / Retroperitoneum: No free air, free fluid or mass. Bones: Disc space narrowing, marginal endplate spurring throughout the lumbar spine. Lower lumbar facet hypertrophy. CT/Abdomen/Pelvis without Cont IMPRESSION: 1. Right renal calculi are nonobstructing. Bilateral simple renal cysts. [place] 1. No follow-up required. 2. Colonic diverticulosis without diverticulitis. Duodenal diverticulum. Rig ht inguinal hernia containing fat and nonincarcerated loop of terminal ileum and the otherwise unremarkable appendix. 3. Severe aortic atherosclerosis. Small pseudoaneurysm left posterolateral as pect of the aorta is 6 mm. Reading Location: [id number]
[2024-12-23 06:06] LABS: Hematocrit 39.0 % (40-54); Hemoglobin 12.9 g/dL (13.0-16.5); Immature Granulocytes Count 0.020 X10^3/uL (0.0-0.0); Mean Corp Hgb Conc 33.1 g/dL (32-36); Mean Corpuscular Volume 103.4 fL (80-94); Mean Platelet Vol. 9.0 fl (6.2-12.0); NRBC Flagged by Analyzer 0 % (0-5); Platelet Count 217 K/mm3 (150-450); RBC Distribution Width CV 15.1 % (11.6-14.6); RBC Distribution Width SD 57.0 fl (35.1-43.9); Red Blood Count 3.77 M/mm3 (4.6-6.2); White Blood Count 6.4 K/mm3 (4.4-11.0)
[2024-12-23] MEDS: 0.9% Normal Saline (500mL Bag) 500 ML 999 ML IV (06:10)
[2024-12-23] MEDS: DiphenhydrAMINE 50 MG/ML Syringe 12.5 MG IV (06:20)
[2024-12-23 06:31] LABS: Anion Gap 12 (5-15); BUN 26 mg/dL (4-19); BUN/Creat Ratio 21.0 RATIO (10-20); Calcium,Total 9.3 mg/dL (7.6-11.0); Carbon Dioxide 22.5 mmol/L (21.0-32.0); Chloride 106 mmol/L (98-108); Estimated Creatinine Clearance 51.84 ml/min (50-250); Glucose 100 mg/dL (70-99); Potassium 4.4 mmol/L (3.3-5.1)
--- NOTE | 2024-12-23 07:05 | EX.ED.DYSGE1 ---
HPI <Dr. Terry He DO - Last Filed: 12/23/24 21:56> History of Present Illness Chief Complaint: Flank Pain Informant: patient and spouse/S.O. Narrative Narrative: Patient is a 79-year-old male with past medical history of hypertension hyperlipidemia dementia and previous kidney stones. states that he underwent stent placement for kidney stones a few months back which led to sepsis and admission to the hospital. After the infection was resolved he was placed in the transitional care unit for multiple weeks. She states he is now in hospice secondary to frontotemporal dementia. She states that a recently added oxycodone 3 times a day for pain control. She states he has been on it for approximately 1 week. Reported patient had mild left-sided abdominal pain/back pain last night without reported trauma or physical activity. The pain worsened this morning and despite taking the oxycodone there was no improvement. states she is concerned for potential kidney stone once again and secondary to the persistent pain despite oral narcotic use he was brought in for evaluation [facility] <Dr. Terry He DO - Last Filed: 12/23/24 21:56> [facility] Medical History DIAN (acute kidney injury) Gout Essential hypertension Hyperlipidemia PSVT (paroxysmal supraventricular tachycardia) Coronary arteriosclerosis after percutaneous transluminal coronary angioplasty (PTCA) Rhabdomyolysis Dementia CVA (cerebral vascular accident) Kidney calculi Home Medications ?Medication ?Instructions ?Recorded ?Last Taken ?Type allopurinol 300 mg tablet 300 mg PO DAILY gout 04/12/23 10/18/24 History donepezil 10 mg tablet 10 mg PO QHS dementia 04/12/23 10/18/24 History memantine 5 mg tablet 5 mg PO BID dementia 04/12/23 10/18/24 History tamsulosin 0.4 mg capsule 0.4 mg PO DAILY urination 04/12/23 10/18/24 History timolol maleate 0.5 % eye drops 1 drp ophthalmic (eye) BID eye 04/12/23 10/18/24 History health buspirone 7.5 mg tablet 7.5 mg PO BID anxiety 09/11/23 10/18/24 History metoprolol succinate 25 mg 25 mg PO BID BP 12/12/23 10/18/24 History tablet,extended release 24 hr latanoprost 0.005 % eye drops 1 drp ophthalmic (eye) QHS eyes 09/18/24 10/18/24 History CPAP - Continuous Positive Airway 11/10/24 Unknown History Pressure([facility] INFORMATIONAL USE ONLY) acetaminophen 500 mg tablet 1,000 mg (2 x 500 mg) PO Q6H PRN 11/25/24 Unknown Rx PRN Pain Score 1-10 #0 tabs albuterol sulfate 90 mcg/actuation 2 puff inhalation QHS 30 days #18 11/25/24 Unknown Rx aerosol inhaler grams amlodipine 5 mg tablet 5 mg PO DAILY 30 days #30 tabs 11/25/24 Unknown Rx dextromethorphan-guaifenesin 10 10 ml PO Q6H PRN PRN Cough #0 mL 11/25/24 Unknown Rx mg-100 mg/5 mL oral syrup melatonin 10 mg disintegrating 10 mg PO QHS #0 tabs 11/25/24 Unknown Rx tablet mirtazapine 15 mg tablet 7.5 mg (1/2 x 15 mg) PO QHS 30 11/25/24 Unknown Rx days #15 tabs Allergy/AdvReac Type Severity Reaction Status Date / Time No Known Allergies Allergy Verified 12/23/24 05:36 Family History Father , Age 68 Myocardial infarction Brother Cancer Sister Cancer Mother Lung disease Surgical History History of heart artery stent (~2010) Social History household members: spouse Smoking Status: Never smoker second hand exposure: Yes alcohol intake: never substance use type: does not use caffeine: Yes Type: carbonated beverages and coffee ROS <Dr. Terry He DO - Last Filed: 12/23/24 21:56> ROS ED Constitutional Constitutional ED: Denies chills or fever(s) Eyes Eyes: Denies change in vision ENT ENT ED: Denies sore throat Cardiovascular Cardiovascular: Denies chest pain Respiratory/Chest Respiratory/Chest: Denies cough or dyspnea Gastrointestinal Gastrointestinal: Reports abdominal pain; Denies diarrhea, nausea or vomiting Genitourinary Genitourinary ED: Denies dysuria or hematuria Musculoskeletal Musculoskeletal: Reports back pain Integumentary Denies rash Neurologic Neurologic: Denies headache(s) Hematologic/Lymphatic Hematologic/Lymphatic: Denies easy bleeding or easy bruising EXAM <Dr. Terry He, DO - Last Filed: 12/23/24 21:56> Physical Exam Const Vital Signs: 12/23/24 05:37 12/23/24 05:48 12/23/24 05:54 Temperature 97.6 F L 97.6 F L Temperature Source Oral Oral Pulse Rate 68 62 Respiratory Rate 24 H 32 H Blood Pressure 148/68 H 148/68 H Blood Pressure Mean 94 94 Pulse Ox 96 98 84 Oxygen Delivery Method Room Air Room Air Oxygen Flow Rate (L/min) 12/23/24 06:41 12/23/24 06:44 12/23/24 07:00 Temperature 97.5 F L Temperature Source Oral Pulse Rate 72 66 Respiratory Rate 19 H 26 H Blood Pressure 125/61 H 134/63 H Blood Pressure Mean 82 86 Pulse Ox 100 100 99 Oxygen Delivery Method Nasal Cannula Nasal Cannula Nasal Cannula Oxygen Flow Rate (L/min) 2 2 2 12/23/24 08:00 12/23/24 09:00 12/23/24 10:00 Temperature Temperature Source Pulse Rate 62 79 61 Respiratory Rate 21 H 19 H 21 H Blood Pressure 116/51 L 121/52 H 118/59 L Blood Pressure Mean 72 75 78 Pulse Ox 95 Oxygen Delivery Method Nasal Cannula Nasal Cannula Oxygen Flow Rate (L/min) 2 2 12/23/24 10:42 12/23/24 12:00 12/23/24 13:00 Temperature Temperature Source Pulse Rate 65 50 L 64 Respiratory Rate 22 H 20 H Blood Pressure 117/61 131/82 H 121/63 H Blood Pressure Mean 79 98 82 Pulse Ox 96 96 98 Oxygen Delivery Method Nasal Cannula Nasal Cannula Oxygen Flow Rate (L/min) 2 2 12/23/24 14:00 12/23/24 14:27 Temperature 20 F L Temperature Source Pulse Rate 64 67 Respiratory Rate 20 H 24 H Blood Pressure 126/85 H 126/85 H Blood Pressure Mean 98 98 Pulse Ox 98 94 Oxygen Delivery Method Nasal Cannula Oxygen Flow Rate (L/min) Positive well nourished and well developed General Appearance ED: well developed; Negative for pallor HEENT HEENT Narrative: Normocephalic atraumatic Eyes PERRL and EOMs intact bilaterally General Eye ED: Negative for scleral icterus Neck supple and no JVD Neck Narrative: No nuchal rigidity or meningeal signs Chest Wall palpation of chest normal Chest Narrative: No pain with palpation No bony deformity or subcutaneous emphysema noted Resp clear to auscultation bilaterally Resp Narrative: Patient is tachypneic but otherwise breath sounds are clear to auscultation without nasal flaring or retractions Cardio regular rate and regular rhythm Rate: other Other Details: Heart is regular rate and rhythm Radial and carotid pulses are equal and symmetric GI non-tender, non-distended and no masses GI Narrative: Abdomen is soft nontender and nondistended. Bowel sounds are hypoactive. No voluntary guarding or rigidity or pulsatile mass. No peritoneal signs Auscultation: hypoactive bowel sounds Palpation: soft Back/Spine Back/Spine Narrative: Positive left CVA pain is noted No obvious erythema or warmth to suggest infection and no obvious ecchymosis or abrasions to suggest trauma Extremity Extremity Narrative: +1 pitting edema to the bilateral lower extremities that is equal and symmetric Neuro CN's II-XII intact bilaterally Neuro Narrative: Patient is at his baseline mental status per without focal neurologic deficit Sensorium / Orientation: alert Psych Psych Narrative: Patient has an agitated affect Attitude: agitated Skin no rashes or lesions noted Skin Narrative: No overlying soft tissue changes to suggest trauma or infection General Skin Exam: Negative for jaundice or pallor <Dr. Kady Burch, DO - Last Filed: 12/23/24 11:36> Physical Exam Const Vital Signs: 12/23/24 05:37 12/23/24 05:48 12/23/24 05:54 Temperature 97.6 F L 97.6 F L Temperature Source Oral Oral Pulse Rate 68 62 Respiratory Rate 24 H 32 H Blood Pressure 148/68 H 148/68 H Blood Pressure Mean 94 94 Pulse Ox 96 98 84 Oxygen Delivery Method Room Air Room Air Oxygen Flow Rate (L/min) 12/23/24 06:41 12/23/24 06:44 12/23/24 07:00 Temperature 97.5 F L Temperature Source Oral Pulse Rate 72 66 Respiratory Rate 19 H 26 H Blood Pressure 125/61 H 134/63 H Blood Pressure Mean 82 86 Pulse Ox 100 100 99 Oxygen Delivery Method Nasal Cannula Nasal Cannula Nasal Cannula Oxygen Flow Rate (L/min) 2 2 2 12/23/24 08:00 12/23/24 09:00 12/23/24 10:00 Temperature Temperature Source Pulse Rate 62 79 61 Respiratory Rate 21 H 19 H 21 H Blood Pressure 116/51 L 121/52 H 118/59 L Blood Pressure Mean 72 75 78 Pulse Ox 95 Oxygen Delivery Method Nasal Cannula Nasal Cannula Oxygen Flow Rate (L/min) 2 2 12/23/24 10:42 12/23/24 12:00 12/23/24 13:00 Temperature Temperature Source Pulse Rate 65 50 L 64 Respiratory Rate 22 H 20 H Blood Pressure 117/61 131/82 H 121/63 H Blood Pressure Mean 79 98 82 Pulse Ox 96 96 98 Oxygen Delivery Method Nasal Cannula Nasal Cannula Oxygen Flow Rate (L/min) 2 2 12/23/24 14:00 12/23/24 14:27 Temperature 20 F L Temperature Source Pulse Rate 64 67 Respiratory Rate 20 H 24 H Blood Pressure 126/85 H 126/85 H Blood Pressure Mean 98 98 Pulse Ox 98 94 Oxygen Delivery Method Nasal Cannula Oxygen Flow Rate (L/min) [facility] <Dr. Terry He, DO - Last Filed: 12/23/24 21:56> [facility] Narrative Medical decision making narrative: Patient arrived to the ER hypertensive but has a past medical history of this. He reported pain along the left abdomen/flank that worsened overnight and appears more intermittent in nature. With a known history of kidney stones there is concern for repeat stone leading to his pain. As patient also had previous sepsis secondary to an impacted stone there is concern for UTI versus pyelonephritis versus sepsis versus acute kidney injury. As I did not have reproducible pain on abdominal exam concern for diverticulitis or intestinal abscess or perforation is low. Therefore at this time basic labs will be obtained as well as urine sample and a noncontrast CT as history and exam is most consistent with potential kidney stone. White count is normal as well as absolute neutrophil count going against potential infection. Kidney function is at baseline going against DIAN. Urine sample shows no sign of secondary infection. 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 With his hypertension and pain there is concern this may be a dissection so therefore he was sent for a CTA of the chest abdomen and pelvis. The patient has had improvement of pain with IV Dilaudid however he is already on home narcotics and this is not controlling his pain. Therefore even if overall workup is negative hospice may need to be contacted for inpatient placement simply based on his intractable pain. At this time the official CTA result is still pending and therefore patient will be signed out to day physician Dr. Burch History & Record Review Discussion w/independent historian: Patient and Significant other Lab Data Attestation: I reviewed the patient's lab results. Labs: Laboratory Results - last 24 hr 12/23/24 12/23/24 12/23/24 05:45 07:10 08:10 WBC 6.4 RBC 3.77 L Hgb 12.9 L Hct 39.0 L MCV 103.4 H MCH 34.2 H MCHC 33.1 RDW Std Deviation 57.0 H RDW Coeff of Ese 15.1 H Plt Count 217 MPV 9.0 Immature Gran % (Auto) 0.300 Neut % (Auto) 74.1 H Lymph % (Auto) 11.1 L Mower % (Auto) 10.7 H Eos % (Auto) 3.3 Baso % (Auto) 0.5 Absolute Neuts (auto) 4.7 Absolute Lymphs (auto) 0.71 L Nucleated RBC % 0 PT Cancelled INR Cancelled APTT Cancelled Sodium 140 Potassium 4.4 Chloride 106 Carbon Dioxide 22.5 Anion Gap 12 BUN 26 H Creatinine 1.24 H Estim Creat Clear Calc 51.84 Est GFR (MDRD) Non-Af 59 L BUN/Creatinine Ratio 21.0 H Glucose 100 H Calcium 9.3 Urine Color Yellow Urine Clarity Clear Urine pH 6.0 Ur Specific Gilbert 1.020 Urine Protein 30 H Urine Glucose (UA) Normal Urine Ketones Negative Urine Occult Blood 25 H Urine Nitrite Negative Urine Bilirubin Negative Urine Urobilinogen Normal Ur Leukocyte Esterase 500 H Urine RBC 0-5 SEEN Urine WBC 10-25 SEEN Ur Squamous Epith Cells 0-5 SEEN Urine Bacteria RARE Urine Mucus 0 SEEN 12/23/24 08:44 WBC RBC Hgb Hct MCV MCH MCHC RDW Std Deviation RDW Coeff of Ese Plt Count MPV Immature Gran % (Auto) Neut % (Auto) Lymph % (Auto) Mower % (Auto) Eos % (Auto) Baso % (Auto) Absolute Neuts (auto) Absolute Lymphs (auto) Nucleated RBC % PT 14.2 INR 1.1 APTT 27.0 Sodium Potassium Chloride Carbon Dioxide Anion Gap BUN Creatinine Estim Creat Clear Calc Est GFR (MDRD) Non-Af BUN/Creatinine Ratio Glucose Calcium Urine Color Urine Clarity Urine pH Ur Specific Gilbert Urine Protein Urine Glucose (UA) Urine Ketones Urine Occult Blood Urine Nitrite Urine Bilirubin Urine Urobilinogen Ur Leukocyte Esterase Urine RBC Urine WBC Ur Squamous Epith Cells Urine Bacteria Urine Mucus Radiography Diagnostic Testing: Clinical Impression(s) from Imaging Studies Abdomen/Pelvis CT 12/23/24 05:54 IMPRESSION: 1. Right renal calculi are nonobstructing. Bilateral simple renal cysts. Bosniak 1. No follow-up required. 2. Colonic diverticulosis without diverticulitis. Duodenal diverticulum. Right inguinal hernia containing fat and nonincarcerated loop of terminal ileum and the otherwise unremarkable appendix. 3. Severe aortic atherosclerosis. 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 Reading Location: [facility] Chest CTA 12/23/24 07:41 IMPRESSION: Pulmonary embolism in the right upper lobe pulmonary artery and its branches. Atelectasis and/or infiltrate at the lung bases worse on the right side. Mild scarring at the bases. Reading Location: [id number] Abdomen/Pelvis CTA 12/23/24 08:21 IMPRESSION: 1. No acute aortic abnormality. Small pseudoaneurysm posterolateral infrarenal aorta just above the bifurcation. Severe arthritis. 2. No flow-limiting stenosis in the splanchnic vessels. 3. Right renal calculi are nonobstructing. Bilateral simple renal cysts. Bosniak 1. No follow-up required. 4. Colonic diverticulosis without diverticulitis. Duodenal diverticulum. Right inguinal hernia containing fat and nonincarcerated loop of terminal ileum and the appendix. Better seen on prior. Reading Location: [facility] <Dr. Kady Burch, DO - Last Filed: 12/23/24 11:36> [facility] MDM Narrative Medical decision making narrative: Patient arrived to the ER hypertensive but has a past medical history of this. He reported pain along the left abdomen/flank that worsened overnight and appears more intermittent in nature. With a known history of kidney stones there is concern for repeat stone leading to his pain. As patient also had previous sepsis secondary to an impacted stone there is concern for UTI versus pyelonephritis versus sepsis versus acute kidney injury. As I did not have reproducible pain on abdominal exam concern for diverticulitis or intestinal abscess or perforation is low. Therefore at this time basic labs will be obtained as well as urine sample and a noncontrast CT as history and exam is most consistent with potential kidney stone. White count is normal as well as absolute neutrophil count going against potential infection. Kidney function is at baseline going against DIAN. Urine sample shows no sign of secondary infection. 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 With his hypertension and pain there is concern this may be a dissection so therefore he was sent for a CTA of the chest abdomen and pelvis. The patient has had improvement of pain with IV Dilaudid however he is already on home narcotics and this is not controlling his pain. Therefore even if overall workup is negative hospice may need to be contacted for inpatient placement simply based on his intractable pain. At this time the official CTA result is still pending and therefore patient will be signed out to day physician Dr. Marcin Burch: Patient signed out to me pending CTA results. He does not have any acute process to explain his pain on his CTA, specifically no acute aortic or vascular pathology. Continues to have intermittent severe spasms of pain. Is given Ativan as I suspect he is having underlying spasms. Counseled that he does have PEs on his right upper lobe. This is not consistent with his pain. He has required some supplemental oxygen after Dilaudid but is otherwise been on room air in the emergency room. Discussed with patient and risk versus benefits of anticoagulation for treatment of pulmonary emboli. At this time they would like to hold off especially as he is already in hospice. They can decide further at a later date as well. As patient is requiring multiple dose of IV medication for pain control he and his are amenable to transfer to inpatient hospice for acute pain control. He is accepted there will be discharge from the emergency room. Lab Data Labs: Laboratory Results - last 24 hr 12/23/24 12/23/24 12/23/24 05:45 07:10 08:10 WBC 6.4 RBC 3.77 L Hgb 12.9 L Hct 39.0 L MCV 103.4 H MCH 34.2 H MCHC 33.1 RDW Std Deviation 57.0 H RDW Coeff of Ese 15.1 H Plt Count 217 MPV 9.0 Immature Gran % (Auto) 0.300 Neut % (Auto) 74.1 H Lymph % (Auto) 11.1 L Mower % (Auto) 10.7 H Eos % (Auto) 3.3 Baso % (Auto) 0.5 Absolute Neuts (auto) 4.7 Absolute Lymphs (auto) 0.71 L Nucleated RBC % 0 PT Cancelled INR Cancelled APTT Cancelled Sodium 140 Potassium 4.4 Chloride 106 Carbon Dioxide 22.5 Anion Gap 12 BUN 26 H Creatinine 1.24 H Estim Creat Clear Calc 51.84 Est GFR (MDRD) Non-Af 59 L BUN/Creatinine Ratio 21.0 H Glucose 100 H Calcium 9.3 Urine Color Yellow Urine Clarity Clear Urine pH 6.0 Ur Specific Gilbert 1.020 Urine Protein 30 H Urine Glucose (UA) Normal Urine Ketones Negative Urine Occult Blood 25 H Urine Nitrite Negative Urine Bilirubin Negative Urine Urobilinogen Normal Ur Leukocyte Esterase 500 H Urine RBC 0-5 SEEN Urine WBC 10-25 SEEN Ur Squamous Epith Cells 0-5 SEEN Urine Bacteria RARE Urine Mucus 0 SEEN 12/23/24 08:44 WBC RBC Hgb Hct MCV MCH MCHC RDW Std Deviation RDW Coeff of Ese Plt Count MPV Immature Gran % (Auto) Neut % (Auto) Lymph % (Auto) Mower % (Auto) Eos % (Auto) Baso % (Auto) Absolute Neuts (auto) Absolute Lymphs (auto) Nucleated RBC % PT 14.2 INR 1.1 APTT 27.0 Sodium Potassium Chloride Carbon Dioxide Anion Gap BUN Creatinine Estim Creat Clear Calc Est GFR (MDRD) Non-Af BUN/Creatinine Ratio Glucose Calcium Urine Color Urine Clarity Urine pH Ur Specific Gilbert Urine Protein Urine Glucose (UA) Urine Ketones Urine Occult Blood Urine Nitrite Urine Bilirubin Urine Urobilinogen Ur Leukocyte Esterase Urine RBC Urine WBC Ur Squamous Epith Cells Urine Bacteria Urine Mucus Radiography Diagnostic Testing: Clinical Impression(s) from Imaging Studies Abdomen/Pelvis CT 12/23/24 05:54 IMPRESSION: 1. Right renal calculi are nonobstructing. Bilateral simple renal cysts. Bosniak 1. No follow-up required. 2. Colonic diverticulosis without diverticulitis. Duodenal diverticulum. Right inguinal hernia containing fat and nonincarcerated loop of terminal ileum and the otherwise unremarkable appendix. 3. Severe aortic atherosclerosis. 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 Reading Location: [facility] Chest CTA 12/23/24 07:41 IMPRESSION: Pulmonary embolism in the right upper lobe pulmonary artery and its branches. Atelectasis and/or infiltrate at the lung bases worse on the right side. Mild scarring at the bases. Reading Location: [facility] Abdomen/Pelvis CTA 12/23/24 08:21 IMPRESSION: 1. No acute aortic abnormality. Small pseudoaneurysm posterolateral infrarenal aorta just above the bifurcation. Severe arthritis. 2. No flow-limiting stenosis in the splanchnic vessels. 3. Right renal calculi are nonobstructing. Bilateral simple renal cysts. Bosniak 1. No follow-up required. 4. Colonic diverticulosis without diverticulitis. Duodenal diverticulum. Right inguinal hernia containing fat and nonincarcerated loop of terminal ileum and the appendix. Better seen on prior. Reading Location: [facility] Discharge Plan Triage Chief Complaint: Flank Pain ED Provider: Terry He Dx/Rx/DC Orders Clinical Impression: Essential hypertension, Hyperlipidemia, Dementia, BPH (benign prostatic hyperplasia), Pulmonary embolism of right lung, Intractable back pain Prescriptions: No Action buspirone 7.5 mg tablet 7.5 mg PO BID metoprolol succinate 25 mg tablet extended release 24 hr 25 mg PO BID latanoprost 0.005 % drops 1 drp ophthalmic (eye) QHS allopurinol 300 mg tablet 300 mg PO DAILY Patient Comments: take 1 tablet by mouth once daily donepezil 10 mg tablet 10 mg PO QHS Patient Comments: take 1 tablet by mouth at bedtime memantine 5 mg tablet 5 mg PO BID Patient Comments: take 1 tablet by mouth twice a day tamsulosin 0.4 mg capsule 0.4 mg PO DAILY Patient Comments: take 1 capsule by mouth once daily timolol maleate 0.5 % drops 1 drp ophthalmic (eye) BID Patient Comments: instill 1 drop into both eyes twice a day (DME) CPAP - Continuous Positive Airway Pressure([facility] USE ONLY) Device See Rx Instructions .Route Patient Comments: Settings: CPAP 11 with 2L bleed in Mask: Medium Full Face, unsure of wall covering contractor/name DME: Unknown Rx Instructions: As directed acetaminophen 500 mg Tablet 1,000 mg PO Q6H PRN PRN (Reason: Pain Score 1-10) Qty: 0 0RF dextromethorphan-guaifenesin 10-100 mg/5 mL Syrup 10 ml PO Q6H PRN PRN (Reason: Cough) Qty: 0 0RF amlodipine 5 mg Tablet 5 mg PO DAILY 30 Days Qty: 30 0RF albuterol sulfate 90 mcg/actuation Hfa Aerosol Inhaler 2 puff inhalation QHS 30 Days Qty: 18 0RF melatonin 10 mg Tablet,Disintegrating 10 mg PO QHS Qty: 0 0RF mirtazapine 15 mg Tablet 7.5 mg PO QHS 30 Days Qty: 15 0RF Primary Care Provider: Julio Mera Referrals: Julio Mera MD [Primary Care Provider, [facility]] Print Language: Barbadian Disposition Disposition: Hospice in Medical Facility Discharge Location: [facility] Discharge Date/Time: 12/23/24 14:48
[2024-12-23 07:15] LABS: Mucous, Urine 0 SEEN /hpf (<or=2+)
[2024-12-23 07:25] LABS: Color, Urine Yellow (Yellow); Glucose, Dipstick Normal (Normal); Ketone-Dipstick Negative (Negative); Leukocyte Esterase-Dipstick 500 /ul (Negative); Nitrite-Dipstick Negative (Negative); Occult Blood-Urine 25 /ul (Negative); Protein-Dipstick 30 mg/dl (Negative); Specific Gravity, Urine 1.020 (1.002-1.030); Urine Bilirubin Dipstick Negative (Negative)
[2024-12-23 07:34] LABS: Red Blood Cells-Urine 0-5 SEEN /hpf (0-5)
[2024-12-23 07:35] LABS: Squamous Epithelial Cells - UA 0-5 SEEN /hpf (0-5)
[2024-12-23] MEDS: HYDROmorphone 0.5 MG/0.5 ML SYRINGE IV ×2 (07:39→13:57)
--- NOTE | 2024-12-23 07:41 | CT_ITS ---
PROCEDURE: CTA CHEST W/WO CONTRAST 12/23/2024 REASON FOR EXAM: PSEUDOANEURYSM ON NONCON CT WITH LEFT FLANK PAIN TECHNIQUE: Procedure Code: [id number] Modality: CT Procedure: CTA CHEST W/WO CONTRAST Multiplanar Sagittal and Coronal images were obtained. 3D post processing was performed CONTRAST: Isovue 370 VOLUME: 100 mL One or more dose reduction techniques were used (e.g., Automated exposure control, adjustment of the mA and/or kV according to patient size, use of iterative reconstruction technique). RADIATION DOSE SUMMARY: CTDlvol: 14.1 mGy DLP: 507.09 mGycm COMPARISON: Prior chest radiograph dated November 28, 2023. FINDINGS: Hardware: None Lymph nodes: Small benign-appearing mediastinal lymph nodes. Heart: Borderline cardiomegaly. Coronary artery calcification. Thoracic Aorta: No thoracic aortic aneurysm or dissection. Atherosclerotic calcification of the aortic arch. Pulmonary Vessels: Intraluminal filling defects seen in the right upper lobe pulmonary artery in the branches in keeping with the pulmonary embolism. Lungs and Airways: Atelectasis and/or early infiltrate at the right lung base. There is evidence of underlying basilar scarring. Calcified granuloma in the right lower lobe. Pleura: No pleural effusion. Upper Abdomen: Mildly distended gallbladder. Questionable tiny gallstones. Bones: Bone windows are unremarkable. CT/CTA Chest W/WO Contrast IMPRESSION: Pulmonary embolism in the right upper lobe pulmonary artery and its branches. Atelectasis and/or infiltrate at the lung bases worse on the right side. Mild scarring at the bases. Reading Location: [facility]
--- NOTE | 2024-12-23 08:21 | CT_ITS ---
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 3D and or MIPS post processing was performed CONTRAST: Isovue 370 VOLUME: 75 mL One or more dose reduction techniques were used (e.g., Automated exposure control, adjustment of the mA and/or kV according to patient size, use of iterative reconstruction technique). RADIATION DOSE SUMMARY: CTDlvol: 63 mGy DLP: 1108 mGycm COMPARISON: None earlier the same day FINDINGS: Lung bases: Calcified granulomas right lower lobe, right hilum. Subsegmental atelectasis both lower lobes. Liver: Mild atrophy of the anterior segment right hepatic lobe with colonic interposition. This is benign. Liver is otherwise normal. Gallbladder: Normal Spleen: Splenic granulomas. Pancreas: Normal Adrenals: Normal Kidneys: Bilateral renal calculi with calculi of the upper, mid and lower pole with the largest of the right lower pole measuring 14 x 7 mm. Simple cyst right midpole is 5.7 x 4.5 cm. Simple cysts left upper pole is 2.5 x 2.2 cm. No collecting system dilation. No filling defect in the ureters. Bladder: Normal Reproductive Organs: Some dystrophic calcification is seen in the prostate gland. Bowel: Stomach is normal. Duodenal diverticulum is approximately 3.1 x 1.9 x 2.0 cm containing fluid and debris. Small bowel is otherwise normal. Scattered colonic diverticula without diverticulitis. Incidentally, there is a large right inguinal hernia containing nonincarcerated small bowel and fat of the terminal ileum. Appendix: In the hernia sac but otherwise normal; better seen on prior. Lymph nodes: None appear enlarged. Aorta: The timing and quality of the contrast bolus is diagnostic. The aorta is severely atherosclerotic with calcified and noncalcified mural plaque. There is no evidence of aortic rupture or dissection. The thoracoabdominal aorta is 2.6 cm. The immediate infrarenal aorta is 2.6 cm. The aorta just above the bifurcation is 2.1 cm. A few cm above the bifurcation left posterolaterally there is a small pseudoaneurysmal dilation measuring 11 x 6 mm. Celiac axis: Atherosclerotic plaque near the origin less than 25% narrowing. SMA: Mild atherosclerotic plaque of the origin. Less than 10% narrowing. MYRTLE: Patent. Renal arteries: Patent. Iliacs: Atherosclerotic plaque without dissection. No stenosis. Peritoneum / Retroperitoneum: No free air, free fluid or mass. Bones: Disc space narrowing, marginal endplate spurring throughout the lumbar spine. Lower lumbar facet hypertrophy. CT/CTA Abd/Pelvis W/WO Contrast IMPRESSION: 1. No acute aortic abnormality. 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 2. No flow-limiting stenosis in the splanchnic vessels. 3. Right renal calculi are nonobstructing. Bilateral simple renal cysts. Arvin niak 1. No follow-up required. 4. Colonic diverticulosis without diverticulitis. Duodenal diverticulum. Rig ht inguinal hernia containing fat and nonincarcerated loop of terminal ileum and the appendix. Better seen on prior. Reading Location: [id number]
[2024-12-23 09:25] LABS: Prothrombin Time (Protime)PT. 14.2 SECONDS (11.7-14.9)
[2024-12-23 09:26] LABS: Partial Thromboplast Time 27.0 Seconds (24.1-36.2)
--- NOTE | 2024-12-23 10:13 | PCA ---
CALLED HOSPICE @ 1000 THEY ARE STARTING THE PROCESS FOR IMPATIENT
--- NOTE | 2024-12-23 14:59 | ED.RN ---
Called report to Radha FERREIRA @ [facility]
== END 2024-12-23 14:48 | disposition hospice, inpatient (51) ==
PROVIDERS: Emergency Provider Emergency Medicine; PCP Family Medicine; Visit Provider Emergency Medicine
DX: I10 Essential (primary) hypertension (principal); G31.09 Other frontotemporal neurocognitive disorder; F02.80 Dementia in other diseases classified elsewhere, unspecified severity, without behavioral disturbance, psychotic disturbance, mood disturbance, and anxiety; I26.99 Other pulmonary embolism without acute cor pulmonale; E78.5 Hyperlipidemia, unspecified; I25.10 Atherosclerotic heart disease of native coronary artery without angina pectoris; N40.0 Benign prostatic hyperplasia without lower urinary tract symptoms; N20.0 Calculus of kidney; K40.90 Unilateral inguinal hernia, without obstruction or gangrene, not specified as recurrent; Z87.442 Personal history of urinary calculi; Z51.5 Encounter for palliative care; Z79.891 Long term (current) use of opiate analgesic; R45.1 Restlessness and agitation
CPT/HCPCS: 71275; 74174; 74176; 80048; 81001; 85025; 85610; 85730; 96361; 96374; 96375; 96376; 99283; Q9967; A4216; J2405